=== PATIENT | female | born 1930 | race Caucasian/White ===

== ENCOUNTER 2017-06-29 07:28 | Day surgery (SDC) | payer BC, OTHER ==
[2017-06-29] MEDS ORDERED: IRON SUCROSE INJECTION 100 MG in SODIUM CHLORIDE 100 ML IVPB ONE (08:00)
[2017-06-29 16:40] VITALS: TEMP 98.1
[2017-06-29 16:45] VITALS: BP 106/48; PULSE 68
--- NOTE | 2017-06-29 23:14 | HP ---
[facility] - Chief Complaint History of Present Illness: here for IV iron. Seen and examined. Denies complains History Source: Patient - Past Medical History Allergies/Adverse Reactions: Allergies Allergy/AdvReac Type Severity Reaction Status Date / Time No Known Allergies Allergy Verified 12/30/16 15:50 Cardiovascular: Yes: AFIB, Hyperlipdemia Gastrointestinal: Yes: GERD - Current Medications Current Medications: Home Medications Medication Instructions Recorded Simvastatin [Zocor -] 20 mg PO HS 04/26/13 Nebivolol [Bystolic -] 10 mg PO DAILY #0 tab 04/28/13 Ibandronate Sodium [Boniva] 150 mg PO MONTHLY tablet 07/19/13 Gabapentin 300 mg PO TID 07/31/13 Ibandronate Sodium [Boniva 150 mg PO Q30D 07/31/13 (Monthly)] Calcium Citrate/Vitamin D3 2 each PO BID tablet 09/26/13 [Citracal + D Caplet] Prednisone 5 mg PO DAILY #30 01/26/14 Pantoprazole Sodium [Protonix -] 40 mg PO BID 03/06/14 Sertraline HCl [Zoloft -] 75 mg PO HS 03/06/14 Amlodipine Besylate [Norvasc -] 2.5 mg PO ASDIR PRN 10/15/16 Methotrexate [Mexate -] 7 tab PO Q7D 10/15/16 Warfarin Sodium [Coumadin] 1 tab PO Q2D 10/16/16 Acetaminophen [Tylenol .Regular 650 mg PO Q6H PRN #0 tablet 10/20/16 Strength -] Albuterol 0.083% Nebulizer Yaneth 1 amp NEB Q4H PRN #0 amp 10/20/16 [Ventolin 0.083% Nebulizer Soln -] Cyclobenzaprine HCl [Flexeril -] 10 mg PO HS PRN #0 tablet 10/20/16 Guaifenesin [Robitussin -] 10 ml PO Q4H PRN #0 cup 10/20/16 Lidocaine 5% Patch [Lidoderm -] 2 patch TP DAILY patch 10/20/16 Losartan Potassium [Cozaar -] 50 mg PO DAILY tablet 10/20/16 Polyethylene Glycol 3350 [Miralax 17 gm PO BID bottle 10/20/16 119 gm Btl -] Tramadol HCl [Ultram -] 50 mg PO Q8H PRN #0 tablet MDD 3 10/20/16 Warfarin Na [Coumadin -] 2.5 mg PO Q2D #0 tablet 10/20/16 Albuterol Sulfate Inhaler - 1 - 2 inh PO QID #1 inhaler 12/30/16 [Ventolin HFA Inhaler -] Prednisone [Deltasone -] 40 mg PO DAILY #8 tablet 12/30/16 Satellite Physical Exam - Physical Examination Vital Signs: Vital Signs Period Temp Pulse Resp BP Sys/Ying Pulse Ox Last 24 Hr 98.1 F-98.1 F 68-73 16-16 106-121/48-59 General Appearance: Well Nourished, Well Developed, Alert & Oriented x3 Lung: Clear to auscultation Heart: Regular rate & rhythm Satellite Impression/Plan - Impression/Plan Impression: IV venofer today. Next dose on 07/13. pt made aware
== END 2017-06-29 16:00 | disposition home or self-care (01) ==
LOC: JONCNONCHE 07:28
PROVIDERS: ATTEND Internal Medicine Hematology & Oncology
PROC: 3E033GC Introduction of Other Therapeutic Substance into Peripheral Vein, Percutaneous Approach (ICD-10-PCS; principal; 2017-06-29)
DX: D50.9 Iron deficiency anemia, unspecified (principal)
CPT/HCPCS: 96365; J1756

== ENCOUNTER 2017-07-13 07:22 | Day surgery (SDC) | payer BC, OTHER ==
[2017-07-13] MEDS ORDERED: IRON SUCROSE INJECTION 100 MG in SODIUM CHLORIDE 100 ML IVPB ONE (14:00)
[2017-07-13 14:41] VITALS: TEMP 97.9
[2017-07-13 16:51] VITALS: BP 109/53; PULSE 65
== END 2017-07-13 16:30 | disposition home or self-care (01) ==
LOC: JONCCHEMO 07:22 → J7W 14:18 → JONCCHEMO 16:30
PROVIDERS: ATTEND Internal Medicine Hematology & Oncology
PROC: 3E0333Z Introduction of Anti-inflammatory into Peripheral Vein, Percutaneous Approach (ICD-10-PCS; principal; 2017-07-13)
DX: D50.9 Iron deficiency anemia, unspecified (principal)
CPT/HCPCS: 96365; 96417; J1756

== ENCOUNTER 2017-08-09 13:30 | Emergency (ER) | payer BC ==
[2017-08-09 13:40] VITALS: TEMP 98.7; BMI 22.1
[2017-08-09] MEDS ORDERED: KETOROLAC TROMETHAMINE 15 MG/ML VIAL IM ONE (14:01)
[2017-08-09] MEDS ORDERED: diazePAM 2 MG TABLET PO ONE (14:02)
[2017-08-09] MEDS ORDERED: ACETAMINOPHEN 325 MG TABLET (FP) PO ONE (14:03)
[2017-08-09] MEDS ORDERED: KETOROLAC TROMETHAMINE 30 MG/1 ML VIAL ONE (14:08)
[2017-08-09] MEDS ORDERED: ACETAMINOPHEN 325 MG TABLET (FP) ONE (14:08)
[2017-08-09] MEDS ORDERED: diazePAM 2 MG TABLET ONE (14:09)
[2017-08-09 14:42] VITALS: BP 137/77; PULSE 77
--- NOTE | 2017-08-09 14:43 | PDOC ---
History of Present Illness - General Chief Complaint: Back Pain Stated Complaint: "BACK SPASMS" Time Seen by Provider: 08/09/17 13:33 History Source: Patient Exam Limitations: No Limitations - History of Present Illness Initial Comments: 08/09/17 14:40 86 yo F with/o RA GERD afib, prior spinal fusion, here with c/o upper back pain. started 3 days ago. was seen in ENT for procedure, believes she may have strained it in positioning. no new numbness or tingling. no bowel or bladder incontinence. no trauma. no f/c. Past History - Past Medical History Allergies/Adverse Reactions: Allergies Allergy/AdvReac Type Severity Reaction Status Date / Time No Known Allergies Allergy Verified 08/09/17 13:31 Home Medications: Ambulatory Orders Simvastatin [Zocor -] 20 mg PO HS 04/26/13 Nebivolol [Bystolic -] 10 mg PO DAILY #0 tab 04/28/13 Ibandronate Sodium [Boniva] 150 mg PO MONTHLY tablet 07/19/13 Gabapentin 300 mg PO BID 07/31/13 Calcium Citrate/Vitamin D3 [Citracal + D Caplet] 2 each PO BID tablet 09/26/13 Prednisone 5 mg PO DAILY #30 01/26/14 Pantoprazole Sodium [Protonix -] 40 mg PO BID 03/06/14 Sertraline HCl [Zoloft -] 50 mg PO HS 03/06/14 Amlodipine Besylate [Norvasc -] 2.5 mg PO ASDIR PRN 10/15/16 Methotrexate [Mexate -] 7 tab PO Q7D 10/15/16 Warfarin Sodium [Coumadin] 1 tab PO Q2D 10/16/16 Acetaminophen [Tylenol .Regular Strength -] 650 mg PO Q6H PRN #0 tablet Albuterol 0.083% Nebulizer Yaneth [Ventolin 0.083% Nebulizer Soln -] 1 amp NEB Q4H PRN #0 amp 10/20/16 Cyclobenzaprine HCl [Flexeril -] 10 mg PO HS PRN #0 tablet 10/20/16 Guaifenesin [Robitussin -] 10 ml PO Q4H PRN #0 cup 10/20/16 Lidocaine 5% Patch [Lidoderm -] 2 patch TP DAILY patch 10/20/16 Polyethylene Glycol 3350 [Miralax 119 gm Btl -] 17 gm PO BID bottle 10/20/16 Tramadol HCl [Ultram -] 50 mg PO Q8H PRN #0 tablet MDD 3 10/20/16 Warfarin Na [Coumadin -] 2.5 mg PO Q2D #0 tablet 10/20/16 Albuterol Sulfate Inhaler - [Ventolin HFA Inhaler -] 1 - 2 inh PO QID #1 inhaler 12/30/16 Losartan Potassium [Cozaar -] 100 mg PO DAILY 08/09/17 Anemia: Yes Asthma: No Cancer: No Cardiac Disorders: No CVA: No COPD: No CHF: No Dementia: No Diabetes: No GI Disorders: Yes (ULCERATED ESOPHAGUS; IRRITABLE BOWEL SYNDR., HH) Disorders: No HTN: Yes Hypercholesterolemia: Yes Liver Disease: No Seizures: No Thyroid Disease: No Other medical history: RHEUMATOID ARTHRITIS, FIBROMYALGIA, 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 - Surgical History Abdominal Surgery: No Appendectomy: No Cardiac Surgery: No Cholecystectomy: No Lung Surgery: No Neurologic Surgery: Yes (SPINAL FUSION; LAMINECTOMY) Orthopedic Surgery: Yes (LT CARPAL TUNNEL) - Suicide/Smoking/Psychosocial Hx Smoking Status: Yes Smoking History: Former smoker Have you smoked in the past 12 months: No Number of Cigarettes Smoked Daily: 0 If you are a former smoker, when did you quit?: 50 years ago Information on smoking cessation initiated: No Hx Alcohol Use: No Drug/Substance Use Hx: No Substance Use Type: None Hx Substance Use Treatment: No Review of Systems - Review of Systems Constitutional: No: Chills, Diaphoresis HEENTM: No: Eye Pain, Blurred Vision Cardiac (ROS): No: Chest Pain, Edema Musculoskeletal: Yes: Back Pain Integumentary: No: Bruising All Other Systems: Reviewed and Negative *Physical Exam - Vital Signs Last Vital Signs Temp Pulse Resp BP Pulse Ox 98.7 F 82 18 173/99 99 08/09/17 13:30 08/09/17 13:30 08/09/17 13:30 08/09/17 13:30 08/09/17 13:30 - Physical Exam Neck: positive: Trachea midline Respiratory/Chest: positive: Lungs Clear, Normal Breath Sounds Cardiovascular: positive: Regular Rhythm, Regular Rate, S1, S2 Gastrointestinal/Abdominal: positive: Normal Bowel Sounds Neurologic: positive: emr specialist II-XII NML intact, Fully Oriented, Alert, Normal Mood/ Affect, Motor Strength 5/5, Other (sensation intact bilat upper extremeties. strenth 5/5) ED Treatment Course - RADIOLOGY Radiology Studies Ordered: Category Date Time Status SPINE-THORACIC [RAD] Stat Radiology 08/09/17 14:03 Ordered - Medications Given in the ED: ED Medications Discontinued Medications Generic Name Dose Route Start Last Admin Trade Name Kerwin PRN Reason Stop Dose Admin Acetaminophen 650 mg 08/09/17 14:03 08/09/17 14:10 Tylenol - PO 08/09/17 14:04 650 mg ONCE ONE Administration Diazepam 2 mg 08/09/17 14:02 08/09/17 14:10 Valium - PO 08/09/17 14:03 2 mg ONCE ONE Administration Ketorolac Tromethamine 15 mg 08/09/17 14:01 08/09/17 14:15 Toradol Injection - IM 08/09/17 14:02 15 mg ONCE ONE Administration Medical Decision Making - Medical Decision Making 08/09/17 14:44 pt with lateral back spasm left lateral thoracid region. no midline spinal tenderenss. nuerologically intact bilat upper ext. ambulating with cane at baseline. plan xray pain meds. pt not wanting to wait for xray, will follow up with kiki next. week. *DC/Admit/Observation/Transfer Diagnosis at time of Disposition: Upper back strain - Discharge Dispostion Disposition: HOME Condition at time of disposition: Improved Admit: No - Referrals Referrals: Guillaume Hernandez MD [Primary Care Provider] - - Patient Instructions Printed Discharge Instructions: Back Pain (Alternative Therapy) Additional Instructions: you can take ibuprofn 400 mg every 8 hours as needed for pain. you can also take tylenol 500 mg every 6 hours as needed for pain. return for weakness numbness or any concerns. follow up with dr hernandez next week as scheduled
== END 2017-08-09 14:55 | disposition home or self-care (01) ==
LOC: FER 13:30
PROC: 3E0233Z Introduction of Anti-inflammatory into Muscle, Percutaneous Approach (ICD-10-PCS; principal; 2017-08-09)
DX: S29.012A Strain of muscle and tendon of back wall of thorax, initial encounter (principal); X58.XXXA Exposure to other specified factors, initial encounter; Y93.89 Activity, other specified; Y92.9 Unspecified place or not applicable; I48.91 Unspecified atrial fibrillation; K21.9 Gastro-esophageal reflux disease without esophagitis; I10 Essential (primary) hypertension
CPT/HCPCS: 99282-25

== ENCOUNTER 2017-08-10 21:27 | Inpatient (IN) | payer BC, OTHER ==
--- NOTE | 2017-08-10 21:31 | PDOC ---
History of Present Illness - General History Source: Patient, EMS, Old Records Exam Limitations: No Limitations <Kevin Ramírez - Last Filed: 08/10/17 23:03> <GuillaumeEve Karina - Last Filed: 08/11/17 03:01> - General Stated Complaint: SYNCOPE Time Seen by Provider: 08/10/17 21:30 - History of Present Illness Initial Comments: 08/10/17 23:00 The patient is a 86 year old female brought via EMS, with a significant past medical history of chronic anemia (Iron Infusions twice a month), ulcerate esophagous, IBS, HTN and HLD, who presents to the emergency department after a syncopal episode today. EMS notes that the patient was on a camode urinating when she syncopized and fell forward. She remained unresponsive for 2 minutes before becoming alert and oriented x4. She currently complains of back spasms which range from mild to moderate. It is noted that the patient was in the ED yesterday for back spasms as well, for which she was discharged after improvement of symptoms. This counts as day 4 of her back spasms. She also complaints of frequency associated with her chief complaint. The patient denies chest pain, shortness of breath, headache and dizziness. Denies fever, chills, nausea, vomit, diarrhea and constipation. Denies dysuria, urgency and hematuria. Allergies: None Past surgical history: Spinal fusion, laminectomy, left carpal tunnel Social history: Former smoker. No alcohol or drug use reported (Kevin Ramírez) Past History <Kevin Ramírez - Last Filed: 08/10/17 23:03> - Past Medical History Anemia: Yes Asthma: No Cancer: No Cardiac Disorders: No CVA: No COPD: No CHF: No Dementia: No Diabetes: No GI Disorders: Yes (ULCERATED ESOPHAGUS; IRRITABLE BOWEL SYNDR., HH) Disorders: No HTN: Yes Hypercholesterolemia: Yes Liver Disease: No Seizures: No Thyroid Disease: No - Surgical History Abdominal Surgery: No Appendectomy: No Cardiac Surgery: No Cholecystectomy: No Lung Surgery: No Neurologic Surgery: Yes (SPINAL FUSION; LAMINECTOMY) Orthopedic Surgery: Yes (LT CARPAL TUNNEL) - Suicide/Smoking/Psychosocial Hx Smoking Status: Yes Smoking History: Former smoker Have you smoked in the past 12 months: No Number of Cigarettes Smoked Daily: 0 If you are a former smoker, when did you quit?: 50 years ago Hx Alcohol Use: No Drug/Substance Use Hx: No Substance Use Type: None Hx Substance Use Treatment: No <GuillauemEveragini Collins - Last Filed: 08/11/17 03:01> - Past Medical History Allergies/Adverse Reactions: Allergies Allergy/AdvReac Type Severity Reaction Status Date / Time No Known Allergies Allergy Verified 08/10/17 21:58 Home Medications: Ambulatory Orders Simvastatin [Zocor -] 20 mg PO HS 04/26/13 Nebivolol [Bystolic -] 10 mg PO DAILY #0 tab 04/28/13 Ibandronate Sodium [Boniva] 150 mg PO MONTHLY tablet 07/19/13 Gabapentin 300 mg PO BID 07/31/13 Calcium Citrate/Vitamin D3 [Citracal + D Caplet] 2 each PO BID tablet 09/26/13 Prednisone 5 mg PO DAILY #30 01/26/14 Pantoprazole Sodium [Protonix -] 40 mg PO BID 03/06/14 Sertraline HCl [Zoloft -] 50 mg PO HS 03/06/14 Amlodipine Besylate [Norvasc -] 2.5 mg PO ASDIR PRN 10/15/16 Methotrexate [Mexate -] 7 tab PO Q7D 10/15/16 Warfarin Sodium [Coumadin] 1 tab PO Q2D 10/16/16 Acetaminophen [Tylenol .Regular Strength -] 650 mg PO Q6H PRN #0 tablet Albuterol 0.083% Nebulizer Yaneth [Ventolin 0.083% Nebulizer Soln -] 1 amp NEB Q4H PRN #0 amp 10/20/16 Cyclobenzaprine HCl [Flexeril -] 10 mg PO HS PRN #0 tablet 10/20/16 Guaifenesin [Robitussin -] 10 ml PO Q4H PRN #0 cup 10/20/16 Lidocaine 5% Patch [Lidoderm -] 2 patch TP DAILY patch 10/20/16 Polyethylene Glycol 3350 [Miralax 119 gm Btl -] 17 gm PO BID bottle 10/20/16 Tramadol HCl [Ultram -] 50 mg PO Q8H PRN #0 tablet MDD 3 10/20/16 Warfarin Na [Coumadin -] 2.5 mg PO Q2D #0 tablet 10/20/16 Albuterol Sulfate Inhaler - [Ventolin HFA Inhaler -] 1 - 2 inh PO QID #1 inhaler 12/30/16 Losartan Potassium [Cozaar -] 100 mg PO DAILY 08/09/17 Cardiac Specific PMH - Complaint Specific PMHX Pacemaker: No <Eve Galaviz - Last Filed: 08/11/17 03:01> Review of Systems - Review of Systems Able to Perform ROS?: Yes <Kevin Ramírez - Last Filed: 08/10/17 23:03> <Eve Galaviz - Last Filed: 08/11/17 03:01> - Review of Systems Comments:: 08/10/17 23:00 GENERAL/CONSTITUTIONAL: No fever or chills. No weakness. HEAD, EYES, EARS, NOSE AND THROAT: No change in vision. No ear pain or discharge. No sore throat.- CARDIOVASCULAR: No chest pain or shortness of breath RESPIRATORY: No cough, wheezing, or hemoptysis. GASTROINTESTINAL: No nausea, vomiting, diarrhea or constipation. GENITOURINARY: (+) Frequency. No dysuria, or change in urination. MUSCULOSKELETAL: (+) Back spasms. No joint or muscle swelling or pain. No neck or back pain. SKIN: No rash NEUROLOGIC: (+) Syncope. No headache, vertigo, change in strength/sensation. ENDOCRINE: No increased thirst. No abnormal weight change HEMATOLOGIC/LYMPHATIC: No anemia, easy bleeding, or history of blood clots. ALLERGIC/IMMUNOLOGIC: No hives or skin allergy. (Kevin Ramírez) *Physical Exam <Kevin Ramírez - Last Filed: 08/10/17 23:03> <Eve Galaviz - Last Filed: 08/11/17 03:01> - Vital Signs Last Vital Signs Temp Pulse Resp BP Pulse Ox 90 14 167/92 98 08/10/17 21:59 08/10/17 21:59 08/10/17 21:59 08/10/17 21:59 - Physical Exam Comments: 08/10/17 23:00 GENERAL: Awake, alert, and fully oriented, in no acute distress HEAD: No signs of trauma, normocephalic, atraumatic EYES: PERRLA, EOMI, sclera anicteric, conjunctiva clear ENT: Auricles normal inspection, hearing grossly normal, nares patent, oropharynx clear without exudates. Moist mucosa NECK: Normal ROM, supple, no lymphadenopathy, JVD, or masses LUNGS: No distress, speaks full sentences, clear to auscultation bilaterally HEART: Regular rate and rhythm, normal S1 and S2, no murmurs, rubs or gallops, peripheral pulses normal and equal bilaterally. ABDOMEN: Soft, nontender, normoactive bowel sounds. No guarding, no rebound. No masses EXTREMITIES : Normal inspection, Normal range of motion, no edema. No clubbing or cyanosis. NEUROLOGICAL: Cranial nerves II through XII grossly intact. Normal speech, normal gait, no focal sensorimotor deficits SKIN: Warm, Dry, normal turgor, no rashes or lesions noted. RECTAL EXAM: Normal tone, no blood was appreciated (Kevin Ramírez) Heart Score/ECG Review - History History: Moderately suspicious - Electrocardiogram EKG: Non specific repolarization disturbance - Age Age: >/= 65 - Risk Factors Risk Factors Heart Score: Yes Hx Hypertension Based on the list above the patient has:: 1-2 risk factors - Troponin Troponin: </= normal limit - Score Heart Score - Total: 5 - ECG Intrepretation Rhythm: Regular Rhythm - [place]: Normal <Eve Galaviz - Last Filed: 08/11/17 03:01> ED Treatment Course - LABORATORY CBC & Chemistry Diagram: 08/10/17 23:27 08/10/17 23:27 <Eve Galaviz - Last Filed: 08/11/17 03:01> - ADDITIONAL ORDERS Additional order review: Laboratory Results 08/11/17 08/10/17 08/10/17 01:51 23:39 23:27 PT with INR INR Sodium Potassium Chloride Carbon Dioxide Anion Gap BUN Creatinine Creat Clearance w eGFR Random Glucose Calcium Magnesium Total Bilirubin AST ALT Alkaline Phosphatase Creatine Kinase 258 H Creatine Kinase Index CK-MB (CK-2) Troponin I < 0.02 B-Natriuretic Peptide Total Protein Albumin Urine Color Straw Urine Appearance Slcloudy Urine pH 8.0 D Urine Protein Negative Urine Glucose (UA) 1+ H Urine Ketones Trace H Urine Blood 1+ H Urine Nitrite Negative Urine Bilirubin Negative Urine Urobilinogen Negative Urine RBC 16 Urine WBC 2 Ur Epithelial Cells Rare Urine Bacteria Rare Urine Mucus Rare Stool Occult Blood Negative Blood Type Antibody Screen 08/10/17 08/10/17 08/10/17 23:27 23:27 23:27 PT with INR 39.10 H INR 3.46 H Sodium 126 L Potassium 4.2 Chloride 88 L D Carbon Dioxide 27 Anion Gap 11 BUN 14 D Creatinine 0.5 L D Creat Clearance w eGFR > 60 Random Glucose 116 H D Calcium 8.5 Magnesium 2.0 Total Bilirubin 0.6 D AST 25 D ALT 31 D Alkaline Phosphatase 84 Creatine Kinase 199 H Creatine Kinase Index 3.6 CK-MB (CK-2) 7.169 H Troponin I < 0.02 B-Natriuretic Peptide 1726.75 H Total Protein 6.6 Albumin 3.8 Urine Color Urine Appearance Urine pH Urine Protein Urine Glucose (UA) Urine Ketones Urine Blood Urine Nitrite Urine Bilirubin Urine Urobilinogen Urine RBC Urine WBC Ur Epithelial Cells Urine Bacteria Urine Mucus Stool Occult Blood Blood Type Antibody Screen 08/10/17 23:20 PT with INR INR Sodium Potassium Chloride Carbon Dioxide Anion Gap BUN Creatinine Creat Clearance w eGFR Random Glucose Calcium Magnesium Total Bilirubin AST ALT Alkaline Phosphatase Creatine Kinase Creatine Kinase Index CK-MB (CK-2) Troponin I B-Natriuretic Peptide Total Protein Albumin Urine Color Urine Appearance Urine pH Urine Protein Urine Glucose (UA) Urine Ketones Urine Blood Urine Nitrite Urine Bilirubin Urine Urobilinogen Urine RBC Urine WBC Ur Epithelial Cells Urine Bacteria Urine Mucus Stool Occult Blood Blood Type A POSITIVE Antibody Screen Negative 08/10/17 23:27 RBC 4.59 MCV 83.7 MCHC 32.1 RDW 24.0 H D MPV 7.5 Neutrophils % 82.8 Lymphocytes % 7.9 L D Monocytes % 8.6 Eosinophils % 0.2 D Basophils % 0.5 - RADIOLOGY Radiology Studies Ordered: Category Date Time Status CHEST CTA [CT] Stat CT Scan 08/11/17 01:[address] WITHOUT CONTRAST [CT] Stat CT Scan 08/11/17 00:10 Taken CHEST X-RAY PORTABLE* [RAD] Stat Radiology 08/10/17 22:23 Taken - Medications Given in the ED: ED Medications Discontinued Medications Generic Name Dose Route Start Last Admin Trade Name Freq PRN Reason Stop Dose Admin Aspirin 162 mg 08/10/17 22:22 08/10/17 23:57 Asa - PO 08/10/17 22:23 Not Given ONCE ONE Morphine Sulfate 2 mg 08/11/17 00:32 08/11/17 00:40 Morphine Injection - IVPUSH 08/11/17 00:33 2 mg ONCE ONE Administration Ondansetron HCl 4 mg 08/11/17 01:20 08/11/17 01:36 Zofran Injection IVPUSH 08/11/17 01:21 4 mg ONCE ONE Administration Progress Note <Kevin Ramírez - Last Filed: 08/10/17 23:03> <Eve Galaviz - Last Filed: 08/11/17 03:01> - Progress Note Progress Note: While in the ED, the patient had an episode of coffee ground vomit and a rectal exam was performed. (Kevin Ramírez) Medical Decision Making <Kevin Ramírez - Last Filed: 08/10/17 23:03> <Eve Galaviz - Last Filed: 08/11/17 03:01> - Medical Decision Making 08/10/17 21:32 86-year-old female brought in by ambulance after having a syncopal episode while on the commode. She was on the commode urinating and fell as she moved from the commode into her bed. She denies hitting her head. According to EMS the son said she was unresponsive for up to 2 minutes. Upon awakening, she was alert and oriented 3. -pt has been vomiting and has dry mucus membranes -she reports having a colonoscopy and endoscopy by Dr. Karina Watkins on July 30. the patient states the results are unremarkable She reports back spasms since Wednesday. She states the back pain has been in her left scapular area She has a long-standing history of back pain and multiple back surgeries. 08/11/17 01:23 She is a past medical history significant for severe anemia and gets frequent iron infusions. She has IBS. Esophageal ulcers. Spinal fusion. Atrial fibrillation and is on Coumadin with an INR above 3 this evening sHe denies fever or chills or abdominal pain or chest pain. EKG shows significant increases in voltage in V2 V3 when compared to her prior ekg in Sep 2016 She denies any chest pain and her first troponin was negative. -Case was discussed with Dr. Bahman Davis who saw [facility] ekgs which were sent to his phone and he recommended early second troponin TSH and telemetry admission 08/11/17 01:37 08/11/17 01:50 08/11/17 02:20 08/11/17 03:00 (Eve Galaviz) *DC/Admit/Observation/Transfer <Kevin Ramírez - Last Filed: 08/10/17 23:03> - Discharge Dispostion Admit: Yes <Eve Galaviz - Last Filed: 08/11/17 03:01> Diagnosis at time of Disposition: Syncope and collapse, Dehydration, Elevated INR, Hyponatremia Afib Qualifiers: Atrial fibrillation type: chronic Qualified Code(s): I48.2 - Chronic atrial fibrillation Nausea & vomiting Qualifiers: Vomiting type: unspecified Vomiting Intractability: non-intractable Qualified Code(s): R11.2 - Nausea with vomiting, unspecified - Discharge Dispostion Decision to Admit order Date/Time: Decision to Admit Order Category Date Time Status Decision to Admit to Hospital Routine Admission 08/11/17 02:43 Active - Attestations Scribe Attestion: 08/10/17 23:01 Documentation prepared by Kevin Ramírez, acting as medical records auditor for Eve Galaviz MD (Kevin Ramírez)
[2017-08-10 22:03] VITALS: BMI 22.1
[2017-08-10] MEDS ORDERED: ASPIRIN 81 MG CHEWABLE TABLETS PO ONE (22:22)
[2017-08-10 23:36] LABS: BASOPHIL 0.5 % (0-2.0); EOSINOPHIL 0.2 % (0-4.5); MCH 26.9 pg (25.7-33.7); MCHC 32.1 g/dl (32.0-36.0); MEAN CELL VOLUME 83.7 fl (80-96); MEAN PLT VOLUME 7.5 fl (7.5-11.1); NEUTROPHILS 82.8 % (42.8-82.8); PLATELET COUNT 273 K/MM3 (134-434); WHITE BLOOD COUNT 12.2 K/mm3 (4.0-10.0)
[2017-08-10 23:56] LABS: URINE APPEARANCE SLCLOUDY; URINE BILIRUBIN NEGATIVE (NEGATIVE); URINE BLOOD 1+ (NEGATIVE); URINE COLOR STRAW; URINE GLUCOSE (UA) 1+ (NEGATIVE); URINE KETONE TRACE (NEGATIVE); URINE NITRITE NEGATIVE (NEGATIVE); URINE PROTEIN NEGATIVE (NEGATIVE); URINE UROBILINOGEN NEGATIVE mg/dL (0.2-1.0)
[2017-08-11 00:07] LABS: URINE BACTERIA RARE /hpf (NONE SEEN); URINE MUCUS RARE; URINE RBC 16 /hpf (0-3); URINE WBC 2 /hpf (3-5)
[2017-08-11 00:13] LABS: ALBUMIN 3.8 g/dl (3.4-5.0); ANION GAP 11 (8-16); BILIRUBIN,TOTAL 0.6 mg/dL (0.2-1.0); CALCIUM 8.5 mg/dL (8.5-10.1); CO2 27 mmol/L (21-32); CREATININE 0.5 mg/dL (0.55-1.02); GLUCOSE,RANDOM 116 mg/dL (74-106); SGOT/AST 25 U/L (15-37); SGPT/ALT 31 U/L (12-78); TOT PROT 6.6 g/dl (6.4-8.2)
[2017-08-11 00:15] LABS: ALK PHOS 84 U/L (45-117); CPK 199 IU/L (26-192); TROPONIN I < 0.02 ng/ml (0.00-0.05)
[2017-08-11 00:20] LABS: INR 3.46 (0.82-1.09); PROTHROMBIN TIME (PATIENT) 39.1 SEC (9.98-11.88)
[2017-08-11] MEDS ORDERED: morphine CARPU-JECT 2 MG/1 ML DISP.SYRIN IVPUSH ONE (00:32)
[2017-08-11] MEDS ORDERED: morphine CARPU-JECT 10 MG/1 ML DISP.SYRIN ONE (00:34)
[2017-08-11] MEDS ORDERED: ONDANSETRON 4 MG/2 ML VIAL IVPUSH ONE (01:20)
[2017-08-11] MEDS ORDERED: ONDANSETRON 4 MG/2 ML VIAL ONE (01:31)
[2017-08-11 02:26] LABS: CPK 258 IU/L (26-192); TROPONIN I < 0.02 ng/ml (0.00-0.05)
--- NOTE | 2017-08-11 03:22 | HP ---
CHIEF COMPLAINT: Syncope, Back Spasms Vomiting PCP: Dr. Hernandez HISTORY OF PRESENT ILLNESS: This is a 86 y/o woman with a significant past medical history of Chronic Anemia with Iron Transfusions, Esophageal Ulcer, Chronic Afib ( in Coumadin), Chronic Neck and Back Pain. Who presents to the ED by ambulance for Syncope. Patient reports having 2 episodes at home. The first while she was sitting in her bedroom she felt dizzy while standing having to sit down then it subsided. The second occurred while patient was using her bedside commode to void, per EMS record the patient syncopized and fell forward lasting 2 minutes. The patient reports having severe back spasms since last Wednesday, being treated at the [place] [facility] campus and discharged to home. Patient also reports urinary frequency x 1 day. Patient denies fever, chills, cough, CP, AP, diarrhea, dysuria. ER course was notable for: (1) Na 126 (2) EKG- #1 NSR with anteroseptal infarct, possible acute. #2 NSR Septal Infarct , age undetermined (3) INR 3.46 Recent Travel: None PAST MEDICAL HISTORY: Chronic Anemia (Iron Infusions) Esophageal Ulcer HTN HLD Afib (on Coumadin) DVT (groin) PAST SURGICAL HISTORY: s/p Cervical Fusion s/p Lumbar Fusion s/p Laminectomy Bilateral Cataract removal Sinus Social History: Smoking: Former Alcohol: None Drugs: None Lives with vania Family History: Allergies No Known Allergies Allergy (Verified 08/10/17 21:58) HOME MEDICATIONS: Home Medications Medication Instructions Recorded Simvastatin [Zocor -] 20 mg PO HS 04/26/13 Nebivolol [Bystolic -] 10 mg PO DAILY #0 tab 04/28/13 Ibandronate Sodium [Boniva] 150 mg PO MONTHLY tablet 07/19/13 Gabapentin 300 mg PO BID 07/31/13 Calcium Citrate/Vitamin D3 2 each PO BID tablet 09/26/13 [Citracal + D Caplet] Prednisone 5 mg PO DAILY #30 01/26/14 Pantoprazole Sodium [Protonix -] 40 mg PO BID 03/06/14 Sertraline HCl [Zoloft -] 50 mg PO HS 03/06/14 Amlodipine Besylate [Norvasc -] 2.5 mg PO ASDIR PRN 10/15/16 Methotrexate [Mexate -] 7 tab PO Q7D 10/15/16 Warfarin Sodium [Coumadin] 1 tab PO Q2D 10/16/16 Acetaminophen [Tylenol .Regular 650 mg PO Q6H PRN #0 tablet 10/20/16 Strength -] Albuterol 0.083% Nebulizer Yaneth 1 amp NEB Q4H PRN #0 amp 10/20/16 [Ventolin 0.083% Nebulizer Soln -] Cyclobenzaprine HCl [Flexeril -] 10 mg PO HS PRN #0 tablet 10/20/16 Guaifenesin [Robitussin -] 10 ml PO Q4H PRN #0 cup 10/20/16 Lidocaine 5% Patch [Lidoderm -] 2 patch TP DAILY patch 10/20/16 Polyethylene Glycol 3350 [Miralax 17 gm PO BID bottle 10/20/16 119 gm Btl -] Tramadol HCl [Ultram -] 50 mg PO Q8H PRN #0 tablet MDD 3 10/20/16 Warfarin Na [Coumadin -] 2.5 mg PO Q2D #0 tablet 10/20/16 Albuterol Sulfate Inhaler - 1 - 2 inh PO QID #1 inhaler 12/30/16 [Ventolin HFA Inhaler -] Losartan Potassium [Cozaar -] 100 mg PO DAILY 08/09/17 REVIEW OF SYSTEMS CONSTITUTIONAL: Absent: fever, chills, diaphoresis, generalized weakness, malaise, loss of appetite, weight change HEENT: Absent: rhinorrhea, nasal congestion, throat pain, throat swelling, difficulty swallowing, mouth swelling, ear pain, eye pain, visual changes CARDIOVASCULAR: Absent: chest pain, syncope, palpitations, irregular heart rate, lightheadedness , peripheral edema RESPIRATORY: Absent: cough, shortness of breath, dyspnea with exertion, orthopnea, wheezing, stridor, hemoptysis GASTROINTESTINAL: nausea, vomiting, Absent: abdominal pain, abdominal distension, diarrhea, constipation, melena, hematochezia GENITOURINARY: frequency Absent: dysuria, urgency, hesitancy, hematuria, flank pain, genital pain MUSCULOSKELETAL: back pain Absent: myalgia, arthralgia, joint swelling, neck pain SKIN: Absent: rash, itching, pallor HEMATOLOGIC/IMMUNOLOGIC: Absent: easy bleeding, easy bruising, lymphadenopathy, frequent infections ENDOCRINE: Absent: unexplained weight gain, unexplained weight loss, heat intolerance, cold intolerance NEUROLOGIC: Absent: headache, focal weakness or paresthesias, dizziness, unsteady gait, seizure, mental status changes, bladder or bowel incontinence PSYCHIATRIC: Absent: anxiety, depression, suicidal or homicidal ideation, hallucinations. PHYSICAL EXAMINATION Vital Signs - 24 hr 08/10/17 21:59 Pulse Rate 90 Respiratory 14 Rate Blood Pressure 167/92 O2 Sat by Pulse 98 Oximetry (%) GENERAL: Awake, alert, and fully oriented, in no acute distress. HEAD: Normal with no signs of trauma. EYES: Pupils equal, round and reactive to light, extraocular movements intact, sclera anicteric, conjunctiva clear. No lid lag. EARS, NOSE, THROAT: Ears normal, nares patent, oropharynx clear without exudates. Dry mucous membranes. NECK: Limited range of motion, supple without lymphadenopathy, JVD, or masses. LUNGS: Breath sounds equal, clear to auscultation bilaterally. No wheezes, and no crackles. No accessory muscle use. HEART: Regular rate and rhythm, normal S1 and S2, No rub or gallop. Grade 3 systolic murmur ABDOMEN: Soft, nontender, not distended, no guarding, no rebound, No hepatomegaly or splenomegaly. hypoactive bowel sounds, palpable soft mass above mid umbilical region MUSCULOSKELETAL: Normal range of motion at all joints. No bony deformities or tenderness. No CVA tenderness. UPPER EXTREMITIES: 2+ pulses, warm, well-perfused. No cyanosis. No clubbing. No peripheral edema. LOWER EXTREMITIES: 2+ pulses, warm, well-perfused. No calf tenderness. No peripheral edema. NEUROLOGICAL: Cranial nerves II-XII intact. Normal speech. Gait not observed. PSYCHIATRIC: Cooperative. Good eye contact. Appropriate mood and affect. SKIN: Warm, dry, normal turgor, no rashes or lesions noted, normal capillary refill. Laboratory Results - last 24 hr 08/10/17 08/10/17 08/10/17 23:20 23:27 23:27 WBC 12.2 H D RBC 4.59 Hgb 12.3 Hct 38.4 MCV 83.7 MCH 26.9 MCHC 32.1 RDW 24.0 H D Plt Count 273 MPV 7.5 Neutrophils % 82.8 Lymphocytes % 7.9 L D Monocytes % 8.6 Eosinophils % 0.2 D Basophils % 0.5 PT with INR 39.10 H INR 3.46 H Sodium Potassium Chloride Carbon Dioxide Anion Gap BUN Creatinine Creat Clearance w eGFR Random Glucose Calcium Magnesium Total Bilirubin AST ALT Alkaline Phosphatase Creatine Kinase Creatine Kinase Index CK-MB (CK-2) Troponin I B-Natriuretic Peptide Total Protein Albumin Urine Color Urine Appearance Urine pH Urine Protein Urine Glucose (UA) Urine Ketones Urine Blood Urine Nitrite Urine Bilirubin Urine Urobilinogen Urine RBC Urine WBC Ur Epithelial Cells Urine Bacteria Urine Mucus Stool Occult Blood Blood Type A POSITIVE Antibody Screen Negative 08/10/17 08/10/17 08/10/17 23:27 23:27 23:27 WBC RBC Hgb Hct MCV MCH MCHC RDW Plt Count MPV Neutrophils % Lymphocytes % Monocytes % Eosinophils % Basophils % PT with INR INR Sodium 126 L Potassium 4.2 Chloride 88 L D Carbon Dioxide 27 Anion Gap 11 BUN 14 D Creatinine 0.5 L D Creat Clearance w eGFR > 60 Random Glucose 116 H D Calcium 8.5 Magnesium 2.0 Total Bilirubin 0.6 D AST 25 D ALT 31 D Alkaline Phosphatase 84 Creatine Kinase 199 H Creatine Kinase Index 3.6 CK-MB (CK-2) 7.169 H Troponin I < 0.02 B-Natriuretic Peptide 1726.75 H Total Protein 6.6 Albumin 3.8 Urine Color Urine Appearance Urine pH Urine Protein Urine Glucose (UA) Urine Ketones Urine Blood Urine Nitrite Urine Bilirubin Urine Urobilinogen Urine RBC Urine WBC Ur Epithelial Cells Urine Bacteria Urine Mucus Stool Occult Blood Negative Blood Type Antibody Screen 08/10/17 08/11/17 23:39 01:51 WBC RBC Hgb Hct MCV MCH MCHC RDW Plt Count MPV Neutrophils % Lymphocytes % Monocytes % Eosinophils % Basophils % PT with INR INR Sodium Potassium Chloride Carbon Dioxide Anion Gap BUN Creatinine Creat Clearance w eGFR Random Glucose Calcium Magnesium Total Bilirubin AST ALT Alkaline Phosphatase Creatine Kinase 258 H Creatine Kinase Index 2.9 CK-MB (CK-2) 7.548 H Troponin I < 0.02 B-Natriuretic Peptide Total Protein Albumin Urine Color Straw Urine Appearance Slcloudy Urine pH 8.0 D Urine Protein Negative Urine Glucose (UA) 1+ H Urine Ketones Trace H Urine Blood 1+ H Urine Nitrite Negative Urine Bilirubin Negative Urine Urobilinogen Negative Urine RBC 16 Urine WBC 2 Ur Epithelial Cells Rare Urine Bacteria Rare Urine Mucus Rare Stool Occult Blood Blood Type Antibody Screen ASSESSMENT/PLAN: This is a 86 y/o woman with a PMHx of: Chronic Anemia (Iron Infusions, LD 06/2017 ), Esophageal Ulcers, HTN, HLD, Chronic Neck and Back Pain. Admitted to Telemetry for Syncope, Hyponatremia, Vomiting for further evaluation of their emergent condition. Plan: 1. Syncope - Likely secondary to Electrolyte Imbalance vs Stenosis vs Anemia - Patient reports having a pre-syncopal episode, then a syncopal episode lasting 2 minutes - Tele monitoring - Head CT- no acute ICH, mass or lesion - EKG- NSR, Anteroseptal Infarct, possibly acute-changes compared to prior study 09/2016 ST abnormality in pericordal leads. Dr. Davis is aware per ED attending - Serial Enzymes - Appreciate Cardiology Consult - Echo - Carotid Doppler - BMP Q4H secondary to Hyponatremia - Fall Precautions - Monitor CBC 2. Hyponatremia - NS bolus now - BMP Q4H 3. Vomiting - Patient reports having an EGD/Colonoscopy 07/30/17 at [facility], she states both were normal - Patient has had 2-3 episodes of black watery emesis in the ED and on the m/s floor - Appreciate GI Consult - NPO - PPI - CTA abdomen report- Minimal bilateral pleural effusions. Subacute right 9th, 10th, rib fractures. Large Hiatal Hernia. Prominent left hepatic lobe biliary duct dilatation could be secondary to biliary stricture or mass. f/u with MRI/ MRCP should be considered 4. Esophageal Ulcer - See above 5. Supratherapeutic INR - Hiold Coumadin - Daily INRs 6. Afib - CHADsVASc2 Score 6 - Hold Coumadin secondary to supratherapuetic INR - Daily INRs - EKG reviewed 7. Chronic Neck/Back Pain - Chronic vs Aortic Dissection vs PE - s/p laminectomy - s/p lumbar fusion - s/p cervcal fusion - s/p cortisone injection - Patient reports being treated at [facility] for Back Spasms- Valium, little relief - CTA chest report- There is no aortic aneurysm or dissection. No gross evidence of PE. Multiple old rib fxs and old T11 compression fx without retropulsion. - Morphine given in ED - Will try Ofirmev x1 - Morphine Sulfate prn - Consider Pain Mgmt - Incentive Spirometer 8. Chronic Anemia - Stable - Patient receives Iron Infusions - Will repeat CBC in am - Will transfuse if Hgb < 7.0 9. Hypertension - Stable - Will hold PO meds in light of patient vomiting - Monitor BP, will have Day Team reassess in am, and treat accordingly - Monitor renal function 10. HLD - Lipid panel in am - Hold Lipitor for now 2/2 episodes of emesis 11. FEN - NS bolus now - Replete Na - NPO 12. DVT Prophylaxis - OOB - SCDs - Hold ACs for now, concern for Upper GI Bleed Code Status: Full Code, HCP Dispo: Requires Inpatient Care Visit type - Emergency Visit Emergency Visit: Yes ED Registration Date: 08/10/17 Care time: The patient presented to the Emergency Department on the above date and was hospitalized for further evaluation of their emergent condition. - New Patient This patient is new to me today: Yes Date on this admission: 08/11/17 - Critical Care Critical Care patient: No
[2017-08-11 04:13] LABS: ANION GAP 13 (8-16); CALCIUM 8.5 mg/dL (8.5-10.1); CO2 23 mmol/L (21-32); CREATININE 0.5 mg/dL (0.55-1.02); GLUCOSE,RANDOM 110 mg/dL (74-106)
[2017-08-11 04:21] LABS: THYROID STIMULATING HORMONE 0.86 uIU/ml (0.358-3.74)
[2017-08-11] MEDS ORDERED: ACETAMINOPHEN 1000 MG/100 ML VIAL (NON FORMULARY) IVPB ONE ×2 (05:07→09:45)
[2017-08-11] MEDS ORDERED: PANTOPRAZOLE SODIUM 40 MG in SODIUM CHLORIDE 100 ML IVPB ONE (05:33)
[2017-08-11] MEDS ORDERED: ALBUTEROL SO4 0.083% IH SOL 2.5 MG/3 ML VIAL.NEB. NEB PRN (05:35)
[2017-08-11 08:33] LABS: BASOPHIL 0.3 % (0-2.0); EOSINOPHIL 0.1 % (0-4.5); MCH 26.7 pg (25.7-33.7); MEAN CELL VOLUME 83.5 fl (80-96); MEAN PLT VOLUME 7.5 fl (7.5-11.1); NEUTROPHILS 84.2 % (42.8-82.8); PLATELET COUNT 278 K/MM3 (134-434); RDW 24.4 % (11.6-15.6); WHITE BLOOD COUNT 10.8 K/mm3 (4.0-10.0)
[2017-08-11 09:00] LABS: INR 2.52 (0.82-1.09); PROTHROMBIN TIME (PATIENT) 28.5 SEC (9.98-11.88)
[2017-08-11 09:04] LABS: ANION GAP 8 (8-16); CALCIUM 8.6 mg/dL (8.5-10.1); CHOLESTEROL 204 mg/dL (50-200); CO2 30 mmol/L (21-32); CPK 306 IU/L (26-192); CREATININE 0.5 mg/dL (0.55-1.02); GLUCOSE,RANDOM 81 mg/dL (74-106); PHOSPHOROUS 3.1 mg/dL (2.5-4.9)
[2017-08-11 09:05] LABS: TROPONIN I < 0.02 ng/ml (0.00-0.05)
[2017-08-11] MEDS ORDERED: ACETAMINOPHEN 1000 MG/100 ML VIAL (NON FORMULARY) IVPB PRN (09:05)
--- NOTE | 2017-08-11 09:17 | PN ---
Progress Note (short form) - Note Progress Note: Patient had 2 spells of weakness while on commode yesterday and had a syncopal episode the second time and slid to the floor and was found by her son.Since Wednesday she has had severe back pain localized to the left of the thoracic spine radiating to a point above the left scapula. The area is tender to touch and hurts more on movement. Went to [facility] ER Wed and sent home on pain Rx. Yesterday she felt weak and some nausea was noted and one episode of vomiting dark material. Just completed EGD and Colonoscopy. Long Hx of Hypertension, DVT , Paroxysmal A. Fib, Osteoporosis and LDS Disc operations and chronic pain. ? of EKG changes in ER; Troponin so far WNL. On Exam: Vital Signs Temp 97.9 F 08/11/17 05:01 Pulse 91 H 08/11/17 05:01 Resp 18 08/11/17 05:31 BP 157/83 08/11/17 05:01 Pulse Ox 96 08/11/17 05:31 Intake & Output 08/10/17 08/10/17 08/11/17 11:59 23:59 11:59 Intake Total 145 Output Total 50 Balance 95 Weight 125 lb 125 lb Intake: IV 10 rfa 20 08/11/2017 10 IVPB 135 Output: Emesis 50 Other: Voiding Method Bedpan Bowel Movement No Height 5 ft 3 in 5 ft 3 in Body Mass Index (BMI) 22.1 22.1 Weight Measurement Method Patient Lift Scale Weight Measurement Method Standing Scale Alert Slightly pale Tenderness posterior chest wall lateral to T2-T4 on the left side Cor: Reg ExT: no edema Abd: Soft and nontender Vital Signs Temp 97.9 F 08/11/17 05:01 Pulse 91 H 08/11/17 05:01 Resp 18 08/11/17 05:31 BP 157/83 08/11/17 05:01 Pulse Ox 96 08/11/17 05:31 Intake & Output Abnormal Lab Results 08/10/17 08/10/17 08/10/17 23:27 23:27 23:27 WBC 12.2 H D RDW 24.0 H D Neutrophils % Lymphocytes % 7.9 L D PT with INR 39.10 H INR 3.46 H Sodium 126 L Chloride 88 L D Creatinine 0.5 L D Random Glucose 116 H D Creatine Kinase 199 H CK-MB (CK-2) 7.169 H B-Natriuretic Peptide Cholesterol HDL Cholesterol Urine Glucose (UA) Urine Ketones Urine Blood 08/10/17 08/10/17 08/11/17 23:27 23:39 01:51 WBC RDW Neutrophils % Lymphocytes % PT with INR INR Sodium Chloride Creatinine Random Glucose Creatine Kinase 258 H CK-MB (CK-2) 7.548 H B-Natriuretic Peptide 1726.75 H Cholesterol HDL Cholesterol Urine Glucose (UA) 1+ H Urine Ketones Trace H Urine Blood 1+ H 08/11/17 08/11/17 08/11/17 01:51 07:56 07:56 WBC 10.8 H RDW 24.4 H Neutrophils % 84.2 H Lymphocytes % 7.8 L PT with INR INR Sodium 126 L 126 L Chloride 90 L 88 L Creatinine 0.5 L 0.5 L Random Glucose 110 H Creatine Kinase CK-MB (CK-2) B-Natriuretic Peptide Cholesterol 204 H HDL Cholesterol 120 H Urine Glucose (UA) Urine Ketones Urine Blood IMP; Syncope Hypertension Chest Wall Pain lateral to upper Thoracic Spine Acute and chronic Pain ? EKG changes Nausea and ? GI Bleed Plan: Await Chest CTA Cardiology Eval Gi Eval F/U lab telemetry Neuro Eval
[2017-08-11] MEDS ORDERED: FLU VACCINE QUAD 60 MCG/0.5 ML (MDV 17-18) IM ONE (10:00)
--- NOTE | 2017-08-11 10:03 | CONSULT ---
Consult - text type - Consultation Consultation Note: Neurology History of Present Illness The patient is a 86 year old female brought via EMS, with a significant past medical history of chronic anemia (Iron Infusions twice a month), ulcerate esophagous, IBS, HTN and HLD, who presents to the emergency department after a syncopal episode. EMS noted that the patient was on a camode urinating when she syncopized and fell forward. Reportedly was unresponsive then becoming alert and oriented x4. She currently complains of back spasms which range from mild to moderate. Her son was at the bedside and confirmed history. She has prior syncope but last one was 3 years ago. She completed CT head which did not show acute changes. There was chronic L frontal sinus disease. CT thorax and chest compelted and did not show aneurysm or dissection, large hernia noted, ? biliary stricturing. Neurologic exam was nonfocal and patient mental status at baseline. Son reported she had injection in her back by Dr. escobar with relief in the past. She is getting pain medication in the hospital. Past History - Past Medical History Anemia: Yes Asthma: No Cancer: No Cardiac Disorders: No CVA: No COPD: No CHF: No Dementia: No Diabetes: No GI Disorders: Yes (ULCERATED ESOPHAGUS; IRRITABLE BOWEL SYNDR., HH) Disorders: No HTN: Yes Hypercholesterolemia: Yes Liver Disease: No Seizures: No Thyroid Disease: No - Surgical History Abdominal Surgery: No Appendectomy: No Cardiac Surgery: No Cholecystectomy: No Lung Surgery: No Neurologic Surgery: Yes (SPINAL FUSION; LAMINECTOMY) Orthopedic Surgery: Yes (LT CARPAL TUNNEL) - Suicide/Smoking/Psychosocial Hx Smoking Status: Yes Smoking History: Former smoker Have you smoked in the past 12 months: No Number of Cigarettes Smoked Daily: 0 If you are a former smoker, when did you quit?: 50 years ago Hx Alcohol Use: No Drug/Substance Use Hx: No Substance Use Type: None Hx Substance Use Treatment: No - Past Medical History Allergies/Adverse Reactions: Allergies Allergy/AdvReac Type Severity Reaction Status Date / Time No Known Allergies Allergy Verified 08/10/17 21:58 Home Medications: Ambulatory Orders Simvastatin [Zocor -] 20 mg PO HS 04/26/13 Nebivolol [Bystolic -] 10 mg PO DAILY #0 tab 04/28/13 Ibandronate Sodium [Boniva] 150 mg PO MONTHLY tablet 07/19/13 Gabapentin 300 mg PO BID 07/31/13 Calcium Citrate/Vitamin D3 [Citracal + D Caplet] 2 each PO BID tablet 09/26/13 Prednisone 5 mg PO DAILY #30 01/26/14 Pantoprazole Sodium [Protonix -] 40 mg PO BID 03/06/14 Sertraline HCl [Zoloft -] 50 mg PO HS 03/06/14 Amlodipine Besylate [Norvasc -] 2.5 mg PO ASDIR PRN 10/15/16 Methotrexate [Mexate -] 7 tab PO Q7D 10/15/16 Warfarin Sodium [Coumadin] 1 tab PO Q2D 10/16/16 Acetaminophen [Tylenol .Regular Strength -] 650 mg PO Q6H PRN #0 tablet Albuterol 0.083% Nebulizer Yaneth [Ventolin 0.083% Nebulizer Soln -] 1 amp NEB Q4H PRN #0 amp 10/20/16 Cyclobenzaprine HCl [Flexeril -] 10 mg PO HS PRN #0 tablet 10/20/16 Guaifenesin [Robitussin -] 10 ml PO Q4H PRN #0 cup 10/20/16 Lidocaine 5% Patch [Lidoderm -] 2 patch TP DAILY patch 10/20/16 Polyethylene Glycol 3350 [Miralax 119 gm Btl -] 17 gm PO BID bottle 10/20/16 Tramadol HCl [Ultram -] 50 mg PO Q8H PRN #0 tablet MDD 3 10/20/16 Warfarin Na [Coumadin -] 2.5 mg PO Q2D #0 tablet 10/20/16 Albuterol Sulfate Inhaler - [Ventolin HFA Inhaler -] 1 - 2 inh PO QID #1 inhaler 12/30/16 Losartan Potassium [Cozaar -] 100 mg PO DAILY 08/09/17 Review of Systems GENERAL/CONSTITUTIONAL: No fever or chills. No weakness. HEAD, EYES, EARS, NOSE AND THROAT: No change in vision. No ear pain or discharge. No sore throat.- CARDIOVASCULAR: No chest pain or shortness of breath RESPIRATORY: No cough, wheezing, or hemoptysis. GASTROINTESTINAL: No nausea, vomiting, diarrhea or constipation. GENITOURINARY: (+) Frequency. No dysuria, or change in urination. MUSCULOSKELETAL: (+) Back spasms. No joint or muscle swelling or pain. No neck or back pain. SKIN: No rash NEUROLOGIC: (+) Syncope. No headache, vertigo, change in strength/sensation. ENDOCRINE: No increased thirst. No abnormal weight change HEMATOLOGIC/LYMPHATIC: No anemia, easy bleeding, or history of blood clots. ALLERGIC/IMMUNOLOGIC: No hives or skin allergy. *Physical Exam Vital Signs Period Temp Pulse Resp BP Sys/Ying Pulse Ox Last 24 Hr 97.9 F-98.5 F 76-91 14-18 153-167/83-92 96-98 GENERAL: Awake, alert, and fully oriented, in no acute distress HEAD: No signs of trauma, normocephalic, atraumatic EYES: PERRLA, EOMI, sclera anicteric, conjunctiva clear ENT: Auricles normal inspection, hearing grossly normal, nares patent, oropharynx clear without exudates. Moist mucosa NECK: Normal ROM, supple, no lymphadenopathy, JVD, or masses LUNGS: No distress, speaks full sentences, clear to auscultation bilaterally HEART: Regular rate and rhythm, normal S1 and S2, no murmurs, rubs or gallops, peripheral pulses normal and equal bilaterally. ABDOMEN: Soft, nontender, normoactive bowel sounds. No guarding, no rebound. No masses EXTREMITIES : Normal inspection, Normal range of motion, no edema. No clubbing or cyanosis. NEUROLOGICAL: Cranial nerves II through XII grossly intact. Normal speech, no focal sensorimotor deficits, finger to nose normal, gait was deferred SKIN: Warm, Dry, normal turgor, no rashes or lesions noted. CBCD WBC 10.8 K/mm3 (4.0-10.0) H 08/11/17 07:56 RBC 4.64 M/mm3 (3.60-5.2) 08/11/17 07:56 Hgb 12.4 GM/dL (10.7-15.3) 08/11/17 07:56 Hct 38.8 % (32.4-45.2) 08/11/17 07:56 MCV 83.5 fl (80-96) 08/11/17 07:56 MCHC 32.0 g/dl (32.0-36.0) 08/11/17 07:56 RDW 24.4 % (11.6-15.6) H 08/11/17 07:56 Plt Count 278 K/MM3 (134-434) 08/11/17 07:56 MPV 7.5 fl (7.5-11.1) 08/11/17 07:56 CMP Sodium 126 mmol/L (136-145) L 08/11/17 07:56 Potassium 4.7 mmol/L (3.5-5.1) 08/11/17 07:56 Chloride 88 mmol/L (98-107) L 08/11/17 07:56 Carbon Dioxide 30 mmol/L (21-32) D 08/11/17 07:56 Anion Gap 8 (8-16) 08/11/17 07:56 BUN 13 mg/dL (7-18) 08/11/17 07:56 Creatinine 0.5 mg/dL (0.55-1.02) L 08/11/17 07:56 Creat Clearance w eGFR > 60 (>60) 08/10/17 23:27 Calcium 8.6 mg/dL (8.5-10.1) 08/11/17 07:56 Total Bilirubin 0.6 mg/dL (0.2-1.0) D 08/10/17 23:27 AST 25 U/L (15-37) D 08/10/17 23:27 ALT 31 U/L (12-78) D 08/10/17 23:27 Alkaline Phosphatase 84 U/L (45-117) 08/10/17 23:27 Total Protein 6.6 g/dl (6.4-8.2) 08/10/17 23:27 Albumin 3.8 g/dl (3.4-5.0) 08/10/17 23:27 - RADIOLOGY CT head and CT chest/thorax reviewed Plan 86 year old female brought via EMS, with a significant past medical history of chronic anemia (Iron Infusions twice a month), ulcerate esophagous, IBS, HTN and HLD, who presents to the emergency department after a syncopal episode. EMS noted that the patient was on a camode urinating when she syncopized and fell forward. CT head which did not show acute changes. CT thorax and chest completed and reviewed as well (did not show aneurysm or dissection, large hernia noted, ? biliary stricturing). Neurologic exam was nonfocal and patient mental status at baseline. Do not believe further imaging needed at this time Event likely vasovagal/cardiogenic Would pursue cardiac work up especially in context of Afib (continue monitoring) Continue Coumadin, fall precautions needed Also continue optimization of hyponatremia For back pain, continue pain control, seems musculoskeletal Son reported she had injection in her back by Dr. escobar with relief in the past. Physical therapy recommended
[2017-08-11 10:14] LABS: URINE LEUK ESTERASE Negative (NEGATIVE)
[2017-08-11] MEDS: NEBIVOLOL 10 MG TABLET (FP) PO SCH (10:22)
[2017-08-11] MEDS: LOSARTAN POTASSIUM 50 MG TABLET (FP) PO SCH (10:23)
--- NOTE | 2017-08-11 11:15 | CON.GI ---
Consult Consult Specialty:: GI: Dr. Bunch for Dr. Rodriguez Referred by:: Dr. Hernandez Reason for Consultation:: vomiting - History of Present Illness Chief Complaint: I passed put and vomited once at home History of Present Illness: 86F admitted through [facility] ER for evaluation of syncopal episodes x 2. She describes having vomited once on Wednesday. The admission note describes dark diarrheal BM's prior to admission. She was guaiac negative in the ER. The vomitus was clear with dark liquid as well. She had a recent EGD and colonoscopy with Dr. Kanwal Villavicencio 07/30/17 at [facility] and is scheduled to have a capsule endoscopy performed 08/24/17 at [facility]. Aside from a lerge hiatal hernia, noted on previous endoscopy performed by Dr. Hughes at [facility], Ms. Vaughan does not recall any other significant findings from her recent procedures. She has followed with Dr. 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 LFTs are normal currently. She denies any melena, vitaly rectal bleeding, abdominal pain, continued nausea. She is hungry. - History Source History Provided By: Patient, Medical Record Limitations to Obtaining History: No Limitations - Past Medical History Cardio/Vascular: Yes: HTN, Hyperlipdemia Gastrointestinal: Yes: GERD ...: No Heme/Onc: Yes: Other (DVT and has been on chronic anticoagulation) Rheumatology: Yes: Rheumatoid Arthritis - Past Surgical History Past Surgical History: Yes: Cataract Removal, Laminectomy Additional Surgical History: cervical spinal fusion, sinus surgery - Alcohol/Substance Use Hx Alcohol Use: No History of Substance Use: reports: None - Smoking History Smoking history: Former smoker Have you smoked in the past 12 months: No Aproximately how many cigarettes per day: 0 If you are a former smoker, when did you quit?: 50 years ago - Social History Usual Living Arrangement: Alone () ADL: Independent 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 Place of : [facility] History of Recent Travel: No Home Medications - Allergies Allergies/Adverse Reactions: Allergies Allergy/AdvReac Type Severity Reaction Status Date / Time No Known Allergies Allergy Verified 08/10/17 21:58 - Home Medications Home Medications: Ambulatory Orders Simvastatin [Zocor -] 20 mg PO HS 04/26/13 Nebivolol [Bystolic -] 10 mg PO DAILY #0 tab 04/28/13 Ibandronate Sodium [Boniva] 150 mg PO WEEKLY tablet 07/19/13 Gabapentin 300 mg PO BID 07/31/13 Calcium Citrate/Vitamin D3 [Citracal + D Caplet] 2 each PO BID tablet 09/26/13 Prednisone 5 mg PO DAILY #30 01/26/14 Pantoprazole Sodium [Protonix -] 40 mg PO DAILY 03/06/14 Sertraline HCl [Zoloft -] 50 mg PO HS 03/06/14 Amlodipine Besylate [Norvasc -] 2.5 mg PO ASDIR PRN 10/15/16 Methotrexate [Mexate -] 7 tab PO Q7D 10/15/16 Warfarin Sodium [Coumadin] 5 mg PO Q2D 10/16/16 Acetaminophen [Tylenol .Regular Strength -] 650 mg PO Q6H PRN #0 tablet Tramadol HCl [Ultram -] 50 mg PO Q8H PRN #0 tablet MDD 3 10/20/16 Warfarin Na [Coumadin -] 2.5 mg PO Q2D #0 tablet 10/20/16 Losartan Potassium [Cozaar -] 100 mg PO DAILY 08/09/17 Lidocaine 5% Patch [Lidoderm -] 2 patch TP DAILY PRN 08/11/17 Polyethylene Glycol 3350 [Miralax 119 gm Btl -] 17 gm PO BID PRN 08/11/17 Family Disease History - Family Disease History Family Disease History: Heart Disease: Mother ( age 97: h/o BCA in 80's. HTN ), Other: Father ( age 95: h/o CAD), Mother, Sister (1, healthy), Son (2, healthy) Other Family History: no family history of colorectal cancer or other GI malignancy Review of Systems - Review of Systems Constitutional: denies: Chills Cardiovascular: denies: Chest Pain Respiratory: reports: SOB Gastrointestinal: reports: Constipation, Nausea, Vomiting. denies: Abdominal Pain, Diarrhea, Dysphagia, Melena, Rectal Bleeding, Vomiting Blood Musculoskeletal: reports: Back Pain Physical Exam-GI Vital Signs: Vital Signs Temperature 97.9 F 08/11/17 05:01 Pulse Rate 91 H 08/11/17 05:01 Respiratory Rate 18 10/18/17 05:31 Blood Pressure 157/83 08/11/17 05:01 O2 Sat by Pulse Oximetry (%) 96 08/11/17 05:31 Constitutional: Yes: Calm Eyes: No: Sclera Icterus Cardiovascular: Yes: Regular Rate and Rhythm Respiratory: Yes: Rhonchi (at left lung base) Gastrointestinal Inspection: No: Distention, Scars ...Auscultate: Yes: Normoactive Bowel Sounds ...Palpate: No: Hepatomegaly, Splenomegaly, Tenderness ...Rectal Exam: Yes: Guaiac Negative (no external lesion,. 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 dark BM's described however guaiac negative x 2 and stable H/H. Do not suspect significant GI bleeding contributing to syncope Code(s): R11.10 - VOMITING, UNSPECIFIED (2) Dilated bile duct Assessment/Plan: Noted on current CTA of chest and previous MRI/MRCP I spoke with Dr. kanwal Villavicencio from [facility] as Ms. Vaughan stated that she would like to follow-up with her as opposed to Dr. Rodriguez. Dr. 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 Vaughan has follow-up for capsule endoscopy 08/24. I will be forwarding my consult and CTA report / previous MRI report to her office. Fax is [phone] Code(s): K83.8 - OTHER SPECIFIED DISEASES OF BILIARY TRACT
--- NOTE | 2017-08-11 11:16 | EKG ---
Test Reason : Blood Pressure : / mmHG Vent. Rate : 090 BPM Atrial Rate : 090 BPM P-R Int : 158 ms QRS Dur : 092 ms QT Int : 370 ms P-R-T Axes : 064 -55 074 degrees QTc Int : 452 ms NORMAL SINUS RHYTHM LEFT ANTERIOR FASCICULAR BLOCK ABNORMAL ECG WHEN COMPARED WITH ECG OF 15-OCT-2016 19:16, LEFT ANTERIOR FASCICULAR BLOCK IS NOW PRESENT PRESENT Confirmed by BHAVANI CARUSO, ELIZABETH ([id number]) on 08/11/2017 11:16:21 AM Referred By: Confirmed By:ELIZABETH BECKHAM MD
--- NOTE | 2017-08-11 11:18 | CON.CARD ---
Consult Consult Specialty:: Cardiology - History of Present Illness History of Present Illness: The patient is a 86 year old female brought via EMS, with a significant past medical history of chronic anemia (Iron Infusions twice a month), ulcerate esophagous, IBS, HTN and HLD, who presents to the emergency department after a syncopal episode today. EMS notes that the patient was on a camode urinating when she syncopized and fell forward. She remained unresponsive for 2 minutes before becoming alert and oriented x4. She currently complains of back spasms which range from mild to moderate. It is noted that the patient was in the ED yesterday for back spasms as well, for which she was discharged after improvement of symptoms. This counts as day 4 of her back spasms. She also complaints of frequency associated with her chief complaint. The patient denies chest pain, shortness of breath, headache and dizziness. Denies fever, chills, nausea, vomit, diarrhea and constipation. Denies dysuria, urgency and hematuria. Allergies: None Past surgical history: Spinal fusion, laminectomy, left carpal tunnel Social history: Former smoker. No alcohol or drug use reported - History Source History Provided By: Patient, Medical Record - Past Medical History Cardio/Vascular: Yes: AFIB, Hyperlipdemia Gastrointestinal: Yes: GERD ...: No - Past Surgical History Past Surgical History: Yes: Cataract Removal - Alcohol/Substance Use Hx Alcohol Use: No History of Substance Use: reports: None - Smoking History Smoking history: Former smoker Have you smoked in the past 12 months: No Aproximately how many cigarettes per day: 0 If you are a former smoker, when did you quit?: 50 years ago - Social History ADL: Independent History of Recent Travel: No Home Medications - Allergies Allergies/Adverse Reactions: Allergies Allergy/AdvReac Type Severity Reaction Status Date / Time No Known Allergies Allergy Verified 08/10/17 21:58 - Home Medications Home Medications: Ambulatory Orders Simvastatin [Zocor -] 20 mg PO HS 04/26/13 Nebivolol [Bystolic -] 10 mg PO DAILY #0 tab 04/28/13 Ibandronate Sodium [Boniva] 150 mg PO WEEKLY tablet 07/19/13 Gabapentin 300 mg PO BID 07/31/13 Calcium Citrate/Vitamin D3 [Citracal + D Caplet] 2 each PO BID tablet 09/26/13 Prednisone 5 mg PO DAILY #30 01/26/14 Pantoprazole Sodium [Protonix -] 40 mg PO DAILY 03/06/14 Sertraline HCl [Zoloft -] 50 mg PO HS 03/06/14 Amlodipine Besylate [Norvasc -] 2.5 mg PO ASDIR PRN 10/15/16 Methotrexate [Mexate -] 7 tab PO Q7D 10/15/16 Warfarin Sodium [Coumadin] 5 mg PO Q2D 10/16/16 Acetaminophen [Tylenol .Regular Strength -] 650 mg PO Q6H PRN #0 tablet Tramadol HCl [Ultram -] 50 mg PO Q8H PRN #0 tablet MDD 3 10/20/16 Warfarin Na [Coumadin -] 2.5 mg PO Q2D #0 tablet 10/20/16 Losartan Potassium [Cozaar -] 100 mg PO DAILY 08/09/17 Lidocaine 5% Patch [Lidoderm -] 2 patch TP DAILY PRN 08/11/17 Polyethylene Glycol 3350 [Miralax 119 gm Btl -] 17 gm PO BID PRN 08/11/17 Family Disease History - Family Disease History Family Disease History: Heart Disease: Mother (HTN) Review of Systems - Review of Systems Constitutional: reports: No Symptoms Eyes: reports: No Symptoms HENT: reports: No Symptoms Neck: reports: No Symptoms Cardiovascular: reports: No Symptoms Gastrointestinal: reports: No Symptoms Genitourinary: reports: No Symptoms Breasts: reports: No Symptoms Reported Musculoskeletal: reports: No Symptoms Integumentary: reports: No Symptoms Neurological: reports: Syncope Endocrine: reports: No Symptoms Hematology/Lymphatic: reports: No Symptoms Psychiatric: reports: No Symptoms Vital Signs: Vital Signs Temperature 97.9 F 08/11/17 05:01 Pulse Rate 91 H 08/11/17 05:01 Respiratory Rate 18 08/11/17 05:31 Blood Pressure 157/83 08/11/17 05:01 O2 Sat by Pulse Oximetry (%) 96 08/11/17 05:31 Constitutional: Yes: Well Nourished, No Distress, Calm Eyes: Yes: WNL, Conjunctiva Clear, EOM Intact HENT: Yes: WNL, Atraumatic, Normocephalic Neck: Yes: WNL, Supple, Trachea Midline Respiratory: Yes: WNL, Regular, CTA Bilaterally Gastrointestinal: Yes: WNL, Normal Bowel Sounds Renal/: Yes: WNL Cardiovascular: Yes: WNL, Regular Rate and Rhythm Musculoskeletal: Yes: WNL Extremities: Yes: WNL Integumentary: Yes: WNL Neurological: Yes: WNL, Alert, Oriented ...Motor Strength: WNL Psychiatric: Yes: WNL, Alert, Oriented - Other Data Labs, Other Data: CBC, BMP 08/11/17 07:56 08/11/17 07:56 INR, PTT INR 2.52 (0.82-1.09) H 08/11/17 07:56 Troponin, BNP 08/11/17 07:56 Troponin I < 0.02 Troponin, BNP 08/11/17 07:56 Troponin I < 0.02 Imaging - Results Chest X-ray: Image Reviewed (no i/e) EKG: Image Reviewed (sr jones) Assessment/Plan paf dvt hnt syncope hlp plan echo telemetry cont ac neuro eval
[2017-08-11] MEDS: morphine CARPU-JECT 2 MG/1 ML DISP.SYRIN IVPUSH PRN (12:50)
[2017-08-11] MEDS: ONDANSETRON 4 MG/2 ML VIAL IVPUSH PRN ×2 (12:52→15:55)
[2017-08-11] MEDS: oxyCODONE HCL 5 MG TABLET PO PRN ×2 (15:43→20:28)
[2017-08-11] MEDS: ACETAMINOPHEN 325 MG TABLET (FP) PO PRN (15:47)
[2017-08-11] MEDS: SENNOSIDES 8.6MG TABLET (FP) PO SCH (21:30)
[2017-08-12] MEDS: morphine CARPU-JECT 2 MG/1 ML DISP.SYRIN IVPUSH PRN ×2 (02:12→08:07)
[2017-08-12 08:14] LABS: INR 1.77 (0.82-1.09)
[2017-08-12 08:22] LABS: ANION GAP 6 (8-16); CALCIUM 9.3 mg/dL (8.5-10.1); CO2 31 mmol/L (21-32); GLUCOSE,RANDOM 74 mg/dL (74-106)
[2017-08-12 08:25] LABS: CREATININE 0.5 mg/dL (0.55-1.02)
--- NOTE | 2017-08-12 09:18 | PN ---
Progress Note, Physician Chief Complaint: Pt A&Ox3; intense pain from back spasms. History of Present Illness: The patient is an 86 year old white woman brought via EMS, with a significant past medical history of chronic anemia (Iron Infusions twice a month), esophageal ulcer, IBS, HTN (07/2017 ECHO: normal LVEF; severe MR and TR), and HLD, who presents to the emergency department after a syncopal episode today. EMS notes that the patient was on a camode urinating when she syncopized and fell forward. She remained unresponsive for 2 minutes before becoming alert and oriented x4. She currently complains of back spasms which range from mild to moderate. It is noted that the patient was in the ED yesterday for back spasms as well, for which she was discharged after improvement of symptoms. This counts as day 4 of her back spasms. She also complaints of frequency associated with her chief complaint. The patient denies chest pain, shortness of breath, headache and dizziness. Denies fever, chills, nausea, vomit, diarrhea and constipation. Denies dysuria, urgency and hematuria. Allergies: None Past surgical history: Spinal fusion, laminectomy, left carpal tunnel Social history: Former smoker. No alcohol or drug use reported - Current Medication List Current Medications: Active Medications Acetaminophen (Tylenol -) 325 mg PO Q4H PRN PRN Reason: PAIN Stop: 08/14/17 15:03 Last Admin: 08/11/17 15:47 Dose: 325 mg Albuterol Sulfate (Ventolin 0.083% Nebulizer Soln -) 1 amp NEB Q6H PRN PRN Reason: SHORT OF BREATH/WHEEZING Lidocaine (Lidoderm Patch -) 1 patch TP DAILY [facility] Losartan Potassium (Cozaar -) 50 mg PO DAILY [facility] Last Admin: 08/11/17 10:23 Dose: 50 mg Miscellaneous (Lidoderm Patch Removal) 1 each MC DAILY@2200 [facility] Morphine Sulfate (Morphine Injection -) 2 mg IVPUSH Q4H PRN PRN Reason: PAIN Last Admin: 08/12/17 08:07 Dose: 2 mg Nebivolol (Bystolic -) 10 mg PO DAILY [facility] Last Admin: 08/11/17 10:22 Dose: 10 mg Ondansetron HCl (Zofran Injection) 4 mg IVPUSH Q6H PRN PRN Reason: NAUSEA AND/OR VOMITING Last Admin: 08/11/17 15:55 Dose: 4 mg Oxycodone HCl (Roxicodone -) 5 mg PO Q4H PRN PRN Reason: PAIN Last Admin: 08/11/17 20:28 Dose: 5 mg Polyethylene Glycol (Miralax (For Daily Use) -) 17 gm PO DAILY [facility] Senna (Senna -) 2 tab PO HS [facility] Last Admin: 08/11/17 21:30 Dose: 2 tab Warfarin Sodium (Coumadin -) 2.5 mg PO DAILY@1800 [facility] - Objective Vital Signs: Vital Signs Temperature 97.9 F 08/12/17 08:18 Pulse Rate 72 08/12/17 08:18 Respiratory Rate 18 08/12/17 08:24 Blood Pressure 134/69 08/12/17 08:18 O2 Sat by Pulse Oximetry (%) 98 08/12/17 08:24 Constitutional: Yes: Anxious, Thin, Other (pain from back spasma) Eyes: Yes: WNL HENT: Yes: WNL Neck: Yes: WNL Cardiovascular: Yes: Regular Rate and Rhythm Respiratory: Yes: Regular Gastrointestinal: Yes: Soft ...Rectal Exam: Yes: Deferred Genitourinary: No: Anuria Breast(s): Yes: WNL Musculoskeletal: Yes: Back Pain, Muscle Weakness Extremities: Yes: Cool Edema: No Peripheral Pulses WNL: Yes Integumentary: Yes: WNL Neurological: Yes: Alert, Oriented, Weakness Labs: CBC, BMP 08/11/17 07:56 08/12/17 05:25 INR, PTT INR 1.77 (0.82-1.09) H 08/12/17 05:25 - ....Imaging Other: Image Reviewed (telemetry: NSR; occarional APCs) Problem List - Problems (1) Dehydration Code(s): E86.0 - DEHYDRATION (2) Elevated INR Code(s): R79.1 - ABNORMAL COAGULATION PROFILE (3) Hyponatremia Code(s): E87.1 - HYPO-OSMOLALITY AND HYPONATREMIA (4) Syncope and collapse Assessment/Plan: Sycnope after urination. orthostatic VS checks. Avoid dehydrtion. ECHO: normal LVEF; severe MR and TR. Remains in severe pain from back spasms. F/u regarding possiblity of biliary stricture noted on CT chest. Code(s): R55 - SYNCOPE AND COLLAPSE (5) GERD (gastroesophageal reflux disease) Code(s): K21.9 - GASTRO-ESOPHAGEAL REFLUX DISEASE WITHOUT ESOPHAGITIS (6) HLD (hyperlipidemia) Code(s): E78.5 - HYPERLIPIDEMIA, UNSPECIFIED (7) HTN (hypertension) Assessment/Plan: on Bystolic and losartan. Code(s): I10 - ESSENTIAL (PRIMARY) HYPERTENSION (8) Back spasm Assessment/Plan: severe, unrelenting pain. Pain management in progress; on morphine, and Lidocaine patch; has been on Toradol. Code(s): M62.830 - MUSCLE SPASM OF BACK (9) Paroxysmal atrial fibrillation Assessment/Plan: on Bystolic for HR and BP. On wafrarin; keep INR 2-3. Code(s): I48.0 - PAROXYSMAL ATRIAL FIBRILLATION
--- NOTE | 2017-08-12 09:19 | PN ---
Progress Note (short form) - Note Progress Note: patient seen and examined thia AM patient still experiencing severe spasms of pain on the left side above the left costal margin posteriorly and lateral to the third or fourth thoracic spine also posteriorly. These areas are very tender to touch and when she turns or moves. She has terrible spasms. X-rays of the ribs were ordered and have not been done yet. She is been seen by GI and neurological service and cardiology and so far no unusual new findings have been discovered. She was seen by the pain specialist Dr. Herbert last evening and he will return today and hopefully give me advice on any further recommendations for treatment. Lidoderm patches were ordered this morning. On exam: Vital Signs Temp 98.0 F 08/12/17 14:00 Pulse 78 08/12/17 14:00 Resp 18 08/12/17 08:24 BP 128/64 08/12/17 14:00 Pulse Ox 98 08/12/17 08:24 Intake & Output 08/11/17 08/12/17 08/12/17 23:59 11:59 23:59 Intake Total 300 220 250 Balance 300 220 250 Intake: IV 10 rfa 20 08/11/2017 10 IVPB 0 Oral 300 220 240 Other: Voiding Method Bedpan Toilet # Unmeasured Voids Void 2 1 2 Bowel Movement No No patient is alert Slightly pale. Has terrible spasms in the lower back in the rib area and the upper back when turning or moving. these areas are also very tender to touch; no rashes noted Chest clear to auscultation Heart regular Abdomen soft. Extremities no edema. Abnormal Lab Results 08/12/17 08/12/17 05:25 05:25 PT with INR 20.00 H INR 1.77 H Sodium 126 L Chloride 89 L Anion Gap 6 L Creatinine 0.5 L impression: Severe pain upper spine and ribs left side and lower ribs posteriorly and laterally ;questionable occult fracture. 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 Multiple lumbosacral disc surgeries. History of DVT and paroxysmal A. fib. Anxiety. Nausea. Hyponatremia possibly contributing to nausea. Plan: Restart Coumadin 2.5 mg a day urine sodium. Followup lab Pain physician. Return visit
[2017-08-12] MEDS: LOSARTAN POTASSIUM 50 MG TABLET (FP) PO SCH (09:24)
[2017-08-12] MEDS: POLYETHYLENE GLYCOL 3350 119 GM BTL PO SCH (09:24)
[2017-08-12] MEDS: NEBIVOLOL 10 MG TABLET (FP) PO SCH (09:24)
[2017-08-12] MEDS ORDERED: LIDOCAINE 5% TOPICAL PATCH TP SCH (10:00)
--- NOTE | 2017-08-12 10:09 | PN ---
Progress Note (short form) - Note Progress Note: Neurology History of Present Illness The patient is a 86 year old female brought via EMS, with a significant past medical history of chronic anemia (Iron Infusions twice a month), ulcerate esophagous, IBS, HTN and HLD, who presents to the emergency department after a syncopal episode. EMS noted that the patient was on a camode urinating when she syncopized and fell forward. Reportedly was unresponsive then becoming alert and oriented x4. She currently complains of back spasms which range from mild to moderate. Her son was at the bedside and confirmed history. She has prior syncope but last one was 3 years ago. She completed CT head which did not show acute changes. There was chronic L frontal sinus disease. CT thorax and chest compelted and did not show aneurysm or dissection, large hernia noted, ? biliary stricturing. Neurologic exam was nonfocal and patient mental status at baseline. Son reported she had injection in her back by Dr. escobar with relief in the past. She is getting pain medication in the hospital. Dr. Escobar to see patient today. She is still having discomfort and optimistic that Dr. Escobar will be able to help her. GI note reviewed. Patient completed Echo with normal LV function and Ejection fraction. Active Medications Acetaminophen (Tylenol -) 325 mg PO Q4H PRN PRN Reason: PAIN Stop: 08/14/17 15:03 Last Admin: 08/11/17 15:47 Dose: 325 mg Albuterol Sulfate (Ventolin 0.083% Nebulizer Soln -) 1 amp NEB Q6H PRN PRN Reason: SHORT OF BREATH/WHEEZING Lidocaine (Lidoderm Patch -) 1 patch TP DAILY [facility] Last Admin: 08/12/17 09:27 Dose: 1 patch Losartan Potassium (Cozaar -) 50 mg PO DAILY [facility] Last Admin: 08/12/17 09:24 Dose: 50 mg Miscellaneous (Lidoderm Patch Removal) 1 each MC DAILY@2200 [facility] Morphine Sulfate (Morphine Injection -) 2 mg IVPUSH Q4H PRN PRN Reason: PAIN Last Admin: 08/12/17 08:07 Dose: 2 mg Nebivolol (Bystolic -) 10 mg PO DAILY [facility] Last Admin: 08/12/17 09:24 Dose: 10 mg Ondansetron HCl (Zofran Injection) 4 mg IVPUSH Q6H PRN PRN Reason: NAUSEA AND/OR VOMITING Last Admin: 08/11/17 15:55 Dose: 4 mg Oxycodone HCl (Roxicodone -) 5 mg PO Q4H PRN PRN Reason: PAIN Last Admin: 08/11/17 20:28 Dose: 5 mg Polyethylene Glycol (Miralax (For Daily Use) -) 17 gm PO DAILY [facility] Last Admin: 08/12/17 09:24 Dose: 17 grams Senna (Senna -) 2 tab PO HS [facility] Last Admin: 08/11/17 21:30 Dose: 2 tab Warfarin Sodium (Coumadin -) 2.5 mg PO DAILY@1800 [facility] *Physical Exam Vital Signs Temperature 97.9 F 08/12/17 08:18 Pulse Rate 72 08/12/17 08:18 Respiratory Rate 18 08/12/17 08:24 Blood Pressure 134/69 08/12/17 08:18 O2 Sat by Pulse Oximetry (%) 98 08/12/17 08:24 GENERAL: Awake, alert, and fully oriented, in no acute distress HEAD: No signs of trauma, normocephalic, atraumatic EYES: PERRLA, EOMI, sclera anicteric, conjunctiva clear ENT: Auricles normal inspection, hearing grossly normal, nares patent, oropharynx clear without exudates. Moist mucosa NECK: Normal ROM, supple, no lymphadenopathy, JVD, or masses LUNGS: No distress, speaks full sentences, clear to auscultation bilaterally HEART: Regular rate and rhythm, normal S1 and S2, no murmurs, rubs or gallops, peripheral pulses normal and equal bilaterally. ABDOMEN: Soft, nontender, normoactive bowel sounds. No guarding, no rebound. No masses EXTREMITIES : Normal inspection, Normal range of motion, no edema. No clubbing or cyanosis. NEUROLOGICAL: Cranial nerves II through XII grossly intact. Normal speech, no focal sensorimotor deficits, finger to nose normal, gait was deferred SKIN: Warm, Dry, normal turgor, no rashes or lesions noted. CBCD WBC 10.8 K/mm3 (4.0-10.0) H 08/11/17 07:56 RBC 4.64 M/mm3 (3.60-5.2) 08/11/17 07:56 Hgb 12.4 GM/dL (10.7-15.3) 08/11/17 07:56 Hct 38.8 % (32.4-45.2) 08/11/17 07:56 MCV 83.5 fl (80-96) 08/11/17 07:56 MCHC 32.0 g/dl (32.0-36.0) 08/11/17 07:56 RDW 24.4 % (11.6-15.6) H 08/11/17 07:56 Plt Count 278 K/MM3 (134-434) 08/11/17 07:56 MPV 7.5 fl (7.5-11.1) 08/11/17 07:56 CMP Sodium 126 mmol/L (136-145) L 08/12/17 05:25 Potassium 4.6 mmol/L (3.5-5.1) 08/12/17 05:25 Chloride 89 mmol/L (98-107) L 08/12/17 05:25 Carbon Dioxide 31 mmol/L (21-32) 08/12/17 05:25 Anion Gap 6 (8-16) L 08/12/17 05:25 BUN 16 mg/dL (7-18) D 08/12/17 05:25 Creatinine 0.5 mg/dL (0.55-1.02) L 08/12/17 05:25 Creat Clearance w eGFR > 60 (>60) 08/10/17 23:27 Calcium 9.3 mg/dL (8.5-10.1) 08/12/17 05:25 Total Bilirubin 0.6 mg/dL (0.2-1.0) D 08/10/17 23:27 AST 25 U/L (15-37) D 08/10/17 23:27 ALT 31 U/L (12-78) D 08/10/17 23:27 Alkaline Phosphatase 84 U/L (45-117) 08/10/17 23:27 Total Protein 6.6 g/dl (6.4-8.2) 08/10/17 23:27 Albumin 3.8 g/dl (3.4-5.0) 08/10/17 23:27 - RADIOLOGY CT head and CT chest/thorax reviewed Plan 86 year old female brought via EMS, with a significant past medical history of chronic anemia (Iron Infusions twice a month), ulcerate esophagous, IBS, HTN and HLD, who presents to the emergency department after a syncopal episode. EMS noted that the patient was on a camode urinating when she syncopized and fell forward. CT head which did not show acute changes. CT thorax and chest completed and reviewed as well (did not show aneurysm or dissection, large hernia noted, ? biliary stricturing). Neurologic exam was nonfocal and patient mental status at baseline. Do not believe further imaging needed at this time Event likely vasovagal/cardiogenic Echo reviewed GI note reviewed Would pursue cardiac work up especially in context of Afib (continue monitoring) Continue Coumadin, fall precautions needed Also continue optimization of hyponatremia For back pain, continue pain control, seems musculoskeletal Awaiting evaluation by Dr. escobar with relief in the past. Physical therapy recommended
[2017-08-12] MEDS: WARFARIN NA 2.5 MG TABLET (FP) PO SCH (17:10)
[2017-08-12] MEDS: ONDANSETRON 4 MG/2 ML VIAL IVPUSH PRN (20:08)
[2017-08-12] MEDS: LIDOCAINE PATCH REMOVAL MC SCH (21:40)
[2017-08-12] MEDS: SENNOSIDES 8.6MG TABLET (FP) PO SCH (21:40)
[2017-08-12] MEDS ORDERED: LIDOCAINE 5% TOPICAL PATCH TP ONE (21:45)
[2017-08-13 07:28] LABS: INR 1.47 (0.82-1.09); PROTHROMBIN TIME (PATIENT) 16.6 SEC (9.98-11.88)
[2017-08-13 07:39] LABS: ANION GAP 10 (8-16); CALCIUM 8.9 mg/dL (8.5-10.1); CO2 30 mmol/L (21-32); CREATININE 0.6 mg/dL (0.55-1.02); GLUCOSE,RANDOM 77 mg/dL (74-106)
--- NOTE | 2017-08-13 09:40 | PN ---
Progress Note, Physician Chief Complaint: Pt A&Ox3; still has significant back pain, though slightly less than yesterday. Denies chest pain, dyspnea, or palpitations. History of Present Illness: The patient is an 86 year old white woman brought via EMS, with a significant past medical history of chronic anemia (Iron Infusions twice a month), esophageal ulcer, IBS, HTN (07/2017 ECHO: normal LVEF; severe MR and TR), and HLD, who presents to the emergency department after a syncopal episode today. EMS notes that the patient was on a camode urinating when she syncopized and fell forward. She remained unresponsive for 2 minutes before becoming alert and oriented x4. She currently complains of back spasms which range from mild to moderate. It is noted that the patient was in the ED yesterday for back spasms as well, for which she was discharged after improvement of symptoms. This counts as day 4 of her back spasms. She also complaints of frequency associated with her chief complaint. The patient denies chest pain, shortness of breath, headache and dizziness. Denies fever, chills, nausea, vomit, diarrhea and constipation. Denies dysuria, urgency and hematuria. Allergies: None Past surgical history: Spinal fusion, laminectomy, left carpal tunnel Social history: Former smoker. No alcohol or drug use reported - Current Medication List Current Medications: Active Medications Acetaminophen (Tylenol -) 325 mg PO Q4H PRN PRN Reason: PAIN Stop: 08/14/17 15:03 Last Admin: 08/11/17 15:47 Dose: 325 mg Albuterol Sulfate (Ventolin 0.083% Nebulizer Soln -) 1 amp NEB Q6H PRN PRN Reason: SHORT OF BREATH/WHEEZING Lidocaine (Lidoderm Patch -) 2 patch TP DAILY [facility] Losartan Potassium (Cozaar -) 50 mg PO DAILY [facility] Last Admin: 08/12/17 09:24 Dose: 50 mg Miscellaneous (Lidoderm Patch Removal) 1 each MC DAILY@2200 [facility] Last Admin: 08/12/17 21:40 Dose: Not Given Morphine Sulfate (Morphine Injection -) 2 mg IVPUSH Q4H PRN PRN Reason: PAIN Last Admin: 08/12/17 08:07 Dose: 2 mg Nebivolol (Bystolic -) 10 mg PO DAILY [facility] Last Admin: 08/12/17 09:24 Dose: 10 mg Ondansetron HCl (Zofran Injection) 4 mg IVPUSH Q6H PRN PRN Reason: NAUSEA AND/OR VOMITING Last Admin: 08/12/17 20:08 Dose: 4 mg Oxycodone HCl (Roxicodone -) 5 mg PO Q4H PRN PRN Reason: PAIN Last Admin: 08/11/17 20:28 Dose: 5 mg Polyethylene Glycol (Miralax (For Daily Use) -) 17 gm PO DAILY [facility] Last Admin: 08/12/17 09:24 Dose: 17 grams Senna (Senna -) 2 tab PO HS [facility] Last Admin: 08/12/17 21:40 Dose: 2 tab Warfarin Sodium (Coumadin -) 2.5 mg PO DAILY@1800 [facility] Last Admin: 08/12/17 17:10 Dose: 2.5 mg - Objective Vital Signs: Vital Signs Temperature 97.7 F 08/13/17 09:12 Pulse Rate 78 08/13/17 09:12 Respiratory Rate 18 08/13/17 09:12 Blood Pressure 130/66 08/13/17 09:12 O2 Sat by Pulse Oximetry (%) 96 08/12/17 21:00 Constitutional: Yes: Calm Eyes: Yes: WNL HENT: Yes: WNL Neck: Yes: WNL Cardiovascular: Yes: Regular Rate and Rhythm, S1, S2, S4 Respiratory: Yes: Regular Gastrointestinal: Yes: Soft ...Rectal Exam: Yes: Deferred Genitourinary: No: Anuria Musculoskeletal: Yes: Back Pain Extremities: Yes: WNL Edema: No Peripheral Pulses WNL: Yes Integumentary: Yes: WNL Neurological: Yes: Weakness, Other Psychiatric: Yes: WNL Labs: CBC, BMP 08/11/17 07:56 08/13/17 06:45 INR, PTT INR 1.47 (0.82-1.09) H 08/13/17 06:45 Abnormal Lab Results 08/13/17 08/13/17 06:45 06:45 PT with INR 16.60 H INR 1.47 H Sodium 129 L Chloride 89 L BUN 19 H - ....Imaging Cat Scan: Report Reviewed EKG: Image Reviewed (NSR; LAFB) Problem List - Problems (1) Dehydration Code(s): E86.0 - DEHYDRATION (2) Elevated INR Assessment/Plan: INR 1.47; keep at 2-3 Code(s): R79.1 - ABNORMAL COAGULATION PROFILE (3) Hyponatremia Assessment/Plan: Na 126-->129. Code(s): E87.1 - HYPO-OSMOLALITY AND HYPONATREMIA (4) Syncope and collapse Assessment/Plan: Sycnope after urination. orthostatic VS checks. Avoid dehydrtion. ECHO: normal LVEF; severe MR and TR. Remains in severe pain from back spasms. F/u regarding possibility of biliary stricture noted on CT chest. Code(s): R55 - SYNCOPE AND COLLAPSE (5) GERD (gastroesophageal reflux disease) Code(s): K21.9 - GASTRO-ESOPHAGEAL REFLUX DISEASE WITHOUT ESOPHAGITIS (6) HLD (hyperlipidemia) Code(s): E78.5 - HYPERLIPIDEMIA, UNSPECIFIED (7) HTN (hypertension) Assessment/Plan: on Bystolic and losartan. Code(s): I10 - ESSENTIAL (PRIMARY) HYPERTENSION (8) Back spasm Code(s): M62.830 - MUSCLE SPASM OF BACK (9) Paroxysmal atrial fibrillation Code(s): I48.0 - PAROXYSMAL ATRIAL FIBRILLATION
[2017-08-13] MEDS: NEBIVOLOL 10 MG TABLET (FP) PO SCH (09:58)
[2017-08-13] MEDS: LOSARTAN POTASSIUM 50 MG TABLET (FP) PO SCH (09:59)
--- NOTE | 2017-08-13 10:14 | PN ---
Progress Note (short form) - Note Progress Note: Neurology History of Present Illness The patient is a 86 year old female brought via EMS, with a significant past medical history of chronic anemia (Iron Infusions twice a month), ulcerate esophagous, IBS, HTN and HLD, who presents to the emergency department after a syncopal episode. EMS noted that the patient was on a camode urinating when she syncopized and fell forward. Reportedly was unresponsive then becoming alert and oriented x4. She currently complains of back spasms which range from mild to moderate. Her son was at the bedside and confirmed history. She has prior syncope but last one was 3 years ago. She completed CT head which did not show acute changes. There was chronic L frontal sinus disease. CT thorax and chest compelted and did not show aneurysm or dissection, large hernia noted, ? biliary stricturing. Neurologic exam was nonfocal and patient mental status at baseline. Son reported she had injection in her back by Dr. escobar with relief in the past. She is getting pain medication in the hospital. Dr. Escobar not yet evaluated. Patient completed Echo with normal LV function and Ejection fraction. Spoke with PCP, otherwise neurologically stable. Active Medications Acetaminophen (Tylenol -) 325 mg PO Q4H PRN PRN Reason: PAIN Stop: 08/14/17 15:03 Last Admin: 08/11/17 15:47 Dose: 325 mg Albuterol Sulfate (Ventolin 0.083% Nebulizer Soln -) 1 amp NEB Q6H PRN PRN Reason: SHORT OF BREATH/WHEEZING Lidocaine (Lidoderm Patch -) 2 patch TP DAILY [facility] Losartan Potassium (Cozaar -) 50 mg PO DAILY [facility] Last Admin: 08/13/17 09:59 Dose: 50 mg Miscellaneous (Lidoderm Patch Removal) 1 each MC DAILY@2200 [facility] Last Admin: 08/12/17 21:40 Dose: Not Given Morphine Sulfate (Morphine Injection -) 2 mg IVPUSH Q4H PRN PRN Reason: PAIN Last Admin: 08/12/17 08:07 Dose: 2 mg Nebivolol (Bystolic -) 10 mg PO DAILY [facility] Last Admin: 08/13/17 09:58 Dose: 10 mg Ondansetron HCl (Zofran Injection) 4 mg IVPUSH Q6H PRN PRN Reason: NAUSEA AND/OR VOMITING Last Admin: 08/12/17 20:08 Dose: 4 mg Oxycodone HCl (Roxicodone -) 5 mg PO Q4H PRN PRN Reason: PAIN Last Admin: 08/11/17 20:28 Dose: 5 mg Polyethylene Glycol (Miralax (For Daily Use) -) 17 gm PO DAILY [facility] Last Admin: 08/12/17 09:24 Dose: 17 grams Senna (Senna -) 2 tab PO HS [facility] Last Admin: 08/12/17 21:40 Dose: 2 tab Warfarin Sodium (Coumadin -) 2.5 mg PO DAILY@1800 [facility] Last Admin: 08/12/17 17:10 Dose: 2.5 mg Warfarin Sodium (Coumadin -) 7.5 mg PO ONCE@1800 [facility] Stop: 08/13/17 18:01 *Physical Exam Vital Signs Temperature 97.7 F 08/13/17 09:12 Pulse Rate 78 08/13/17 09:12 Respiratory Rate 18 08/13/17 09:12 Blood Pressure 130/66 08/13/17 09:12 O2 Sat by Pulse Oximetry (%) 96 08/12/17 21:00 GENERAL: Awake, alert, and fully oriented, in no acute distress HEAD: No signs of trauma, normocephalic, atraumatic EYES: PERRLA, EOMI, sclera anicteric, conjunctiva clear ENT: Auricles normal inspection, hearing grossly normal, nares patent, oropharynx clear without exudates. Moist mucosa NECK: Normal ROM, supple, no lymphadenopathy, JVD, or masses LUNGS: No distress, speaks full sentences, clear to auscultation bilaterally HEART: Regular rate and rhythm, normal S1 and S2, no murmurs, rubs or gallops, peripheral pulses normal and equal bilaterally. ABDOMEN: Soft, nontender, normoactive bowel sounds. No guarding, no rebound. No masses EXTREMITIES : Normal inspection, Normal range of motion, no edema. No clubbing or cyanosis. NEUROLOGICAL: Cranial nerves II through XII grossly intact. Normal speech, no focal sensorimotor deficits, finger to nose normal, gait was deferred CBCD WBC 10.8 K/mm3 (4.0-10.0) H 08/11/17 07:56 RBC 4.64 M/mm3 (3.60-5.2) 08/11/17 07:56 Hgb 12.4 GM/dL (10.7-15.3) 08/11/17 07:56 Hct 38.8 % (32.4-45.2) 08/11/17 07:56 MCV 83.5 fl (80-96) 08/11/17 07:56 MCHC 32.0 g/dl (32.0-36.0) 08/11/17 07:56 RDW 24.4 % (11.6-15.6) H 08/11/17 07:56 Plt Count 278 K/MM3 (134-434) 08/11/17 07:56 MPV 7.5 fl (7.5-11.1) 08/11/17 07:56 CMP Sodium 129 mmol/L (136-145) L 08/13/17 06:45 Potassium 4.5 mmol/L (3.5-5.1) 08/13/17 06:45 Chloride 89 mmol/L (98-107) L 08/13/17 06:45 Carbon Dioxide 30 mmol/L (21-32) 08/13/17 06:45 Anion Gap 10 (8-16) 08/13/17 06:45 BUN 19 mg/dL (7-18) H 08/13/17 06:45 Creatinine 0.6 mg/dL (0.55-1.02) 08/13/17 06:45 Creat Clearance w eGFR > 60 (>60) 08/10/17 23:27 Calcium 8.9 mg/dL (8.5-10.1) 08/13/17 06:45 Total Bilirubin 0.6 mg/dL (0.2-1.0) D 08/10/17 23:27 AST 25 U/L (15-37) D 08/10/17 23:27 ALT 31 U/L (12-78) D 08/10/17 23:27 Alkaline Phosphatase 84 U/L (45-117) 08/10/17 23:27 Total Protein 6.6 g/dl (6.4-8.2) 08/10/17 23:27 Albumin 3.8 g/dl (3.4-5.0) 08/10/17 23:27 - RADIOLOGY CT head and CT chest/thorax reviewed Plan 86 year old female brought via EMS, with a significant past medical history of chronic anemia (Iron Infusions twice a month), ulcerate esophagous, IBS, HTN and HLD, who presents to the emergency department after a syncopal episode. EMS noted that the patient was on a camode urinating when she syncopized and fell forward. CT head which did not show acute changes. CT thorax and chest completed and reviewed as well (did not show aneurysm or dissection, large hernia noted, ? biliary stricturing). Neurologic exam was nonfocal and patient mental status at baseline. Do not believe further imaging needed at this time Event likely vasovagal/cardiogenic Echo reviewed Would pursue cardiac work up especially in context of Afib (continue monitoring) Continue Coumadin, fall precautions needed Can continue optimization of hyponatremia For back pain, continue pain control, seems musculoskeletal Awaiting evaluation by Dr. escobar with relief in the past. Physical therapy recommended No further recommendations
[2017-08-13] MEDS: LIDOCAINE 5% TOPICAL PATCH TP SCH (10:45)
[2017-08-13] MEDS: POLYETHYLENE GLYCOL 3350 119 GM BTL PO SCH (11:08)
--- NOTE | 2017-08-13 12:20 | PN ---
Progress Note (short form) - Note Progress Note: Patient has terrible spasms mainly low back on the left side laterally not over her spine but new Xray Thoacic spine shows new compression T8 and ? old Compression T11. Patient struggles even to sit at bedside chair. With PT performance was a struggle also. Seen by Cardiology; will transfer to floor care. Na up to 129. ? RBC's in urine ; to repeat and order urine cytology. I have held coumadin for 2 days in case pain MD would do a procedure but I ordered 7.5 mg for tonite. Her normal dose is 2.5 / 5mg alternating. On Exam: Vital Signs Temp 97.7 F 08/13/17 09:12 Pulse 72 08/13/17 11:14 Resp 18 08/13/17 09:12 BP 130/66 08/13/17 09:12 Pulse Ox 95 08/13/17 11:14 Intake & Output 08/12/17 08/13/17 08/13/17 23:59 11:59 23:59 Intake Total 250 Balance 250 Intake: IV 08/11/2017 10 IVPB 0 Oral 240 Other: Voiding Method Bedpan Bedpan # Unmeasured Voids Void 1 1 Bowel Movement No Alert Tired due to lack of sleep Chest:Decreased breath sounds Tenderness ribs posterior left costal margin Ext: No edema Abnormal Lab Results 08/13/17 08/13/17 06:45 06:45 PT with INR 16.60 H INR 1.47 H Sodium 129 L Chloride 89 L BUN 19 H IMP: Acute back pain ? New T8 compression Fx Mild Hyponatremia Hypertension Chronic and Acute Pain LS disc surgery Primary Biliary Cirrhosis Plan: Await Pain MD F/U INR F/u Sodium Urinanalysis and Urine cytology PT ? Eventual SNF
[2017-08-13] MEDS ORDERED: WARFARIN NA 7.5 MG TABLET (FP) PO ONE (18:00)
--- NOTE | 2017-08-13 18:13 | CONSULT ---
Consult Consult Specialty:: pain medicine Referred by:: dr swanson - History of Present Illness Chief Complaint: back pain History of Present Illness: 86 year old woman with a history of severe mid back pain recent xrays show a possible acute t8 fx pain is located in the left side of the mid back. pain score 10/10 when standing and walking - Past Medical History Cardio/Vascular: Yes: HTN, Hyperlipdemia Gastrointestinal: Yes: GERD ...: No Rheumatology: Yes: Rheumatoid Arthritis - Past Surgical History Past Surgical History: Yes: Cataract Removal, Laminectomy Additional Surgical History: cervical spinal fusion, sinus surgery - Alcohol/Substance Use Hx Alcohol Use: No History of Substance Use: reports: None - Smoking History Smoking history: Former smoker Have you smoked in the past 12 months: No Aproximately how many cigarettes per day: 0 If you are a former smoker, when did you quit?: 50 years ago - Social History Usual Living Arrangement: Alone () ADL: Independent Occupation: Retired [employer]er History of Recent Travel: No Home Medications - Allergies Allergies/Adverse Reactions: Allergies Allergy/AdvReac Type Severity Reaction Status Date / Time No Known Allergies Allergy Verified 08/10/17 21:58 - Home Medications Home Medications: Ambulatory Orders Simvastatin [Zocor -] 20 mg PO HS 04/26/13 Nebivolol [Bystolic -] 10 mg PO DAILY #0 tab 04/28/13 Ibandronate Sodium [Boniva] 150 mg PO WEEKLY tablet 07/19/13 Gabapentin 300 mg PO BID 07/31/13 Calcium Citrate/Vitamin D3 [Citracal + D Caplet] 2 each PO BID tablet 09/26/13 Prednisone 5 mg PO DAILY #30 01/26/14 Pantoprazole Sodium [Protonix -] 40 mg PO DAILY 03/06/14 Sertraline HCl [Zoloft -] 50 mg PO HS 03/06/14 Amlodipine Besylate [Norvasc -] 2.5 mg PO ASDIR PRN 10/15/16 Methotrexate [Mexate -] 7 tab PO Q7D 10/15/16 Warfarin Sodium [Coumadin] 5 mg PO Q2D 10/16/16 Acetaminophen [Tylenol .Regular Strength -] 650 mg PO Q6H PRN #0 tablet Tramadol HCl [Ultram -] 50 mg PO Q8H PRN #0 tablet MDD 3 10/20/16 Warfarin Na [Coumadin -] 2.5 mg PO Q2D #0 tablet 10/20/16 Losartan Potassium [Cozaar -] 100 mg PO DAILY 08/09/17 Lidocaine 5% Patch [Lidoderm -] 2 patch TP DAILY PRN 08/11/17 Polyethylene Glycol 3350 [Miralax 119 gm Btl -] 17 gm PO BID PRN 08/11/17 Family Disease History - Family Disease History Family Disease History: Heart Disease: Mother ( age 97: h/o BCA in 80's. HTN ), Other: Father ( age 95: h/o CAD), Mother, Sister (1, healthy), Son (2, healthy) Other Family History: no family history of colorectal cancer or other GI malignancy Physical Exam Vital Signs: Vital Signs Temperature 98.6 F 08/13/17 14:00 Pulse Rate 76 08/13/17 14:00 Respiratory Rate 18 08/13/17 09:12 Blood Pressure 145/70 08/13/17 14:00 O2 Sat by Pulse Oximetry (%) 95 08/13/17 11:14 Musculoskeletal: Yes: Back Pain Labs: CBC, BMP 08/11/17 07:56 08/13/17 06:45 Assessment/Plan Mid back pain secondary to possible acute compression fracture 1. Dedicated ct scan thoracic spine non contrast 2. Bone scan (patient reports unwillingness to undergo mri) 3. Tylenol prn 4. please call me once bone scan and ct scan are done
[2017-08-13] MEDS: ONDANSETRON 4 MG/2 ML VIAL IVPUSH PRN (20:04)
[2017-08-13] MEDS: LIDOCAINE PATCH REMOVAL MC SCH (22:06)
[2017-08-13] MEDS: SENNOSIDES 8.6MG TABLET (FP) PO SCH (22:07)
[2017-08-13] MEDS: oxyCODONE HCL 5 MG TABLET PO PRN (23:54)
[2017-08-13] MEDS: ACETAMINOPHEN 325 MG TABLET (FP) PO PRN (23:55)
[2017-08-14 07:53] LABS: INR 2.01 (0.82-1.09); PROTHROMBIN TIME (PATIENT) 22.7 SEC (9.98-11.88)
[2017-08-14 08:16] LABS: ANION GAP 8 (8-16); CALCIUM 8.6 mg/dL (8.5-10.1); CO2 30 mmol/L (21-32); CREATININE 0.6 mg/dL (0.55-1.02); GLUCOSE,RANDOM 83 mg/dL (74-106)
[2017-08-14] MEDS: NEBIVOLOL 10 MG TABLET (FP) PO SCH (09:06)
[2017-08-14] MEDS: LIDOCAINE 5% TOPICAL PATCH TP SCH (09:07)
[2017-08-14] MEDS: LOSARTAN POTASSIUM 50 MG TABLET (FP) PO SCH (09:07)
[2017-08-14] MEDS: POLYETHYLENE GLYCOL 3350 119 GM BTL PO SCH (09:09)
--- NOTE | 2017-08-14 11:09 | PN ---
Progress Note, Physician Chief Complaint: Pt denies dyspnea, chest pain, or palpitations. Still with back pain. History of Present Illness: The patient is an 86 year old white woman brought via EMS, with a significant past medical history of chronic anemia (Iron Infusions twice a month), esophageal ulcer, IBS, paroxysmal AF, HTN (07/2017 ECHO: normal LVEF; severe MR and TR), and HLD, who presents to the emergency department after a syncopal episode today. EMS notes that the patient was on a camode urinating when she syncopized and fell forward. She remained unresponsive for 2 minutes before becoming alert and oriented x4. She currently complains of back spasms which range from mild to moderate. It is noted that the patient was in the ED yesterday for back spasms as well, for which she was discharged after improvement of symptoms. This counts as day 4 of her back spasms. She also complaints of frequency associated with her chief complaint. The patient denies chest pain, shortness of breath, headache and dizziness. Denies fever, chills, nausea, vomit, diarrhea and constipation. Denies dysuria, urgency and hematuria. Allergies: None Past surgical history: Spinal fusion, laminectomy, left carpal tunnel Social history: Former smoker. No alcohol or drug use reported - Current Medication List Current Medications: Active Medications Acetaminophen (Tylenol -) 325 mg PO Q4H PRN PRN Reason: PAIN Stop: 08/14/17 15:03 Last Admin: 08/13/17 23:55 Dose: 325 mg Albuterol Sulfate (Ventolin 0.083% Nebulizer Soln -) 1 amp NEB Q6H PRN PRN Reason: SHORT OF BREATH/WHEEZING Lidocaine (Lidoderm Patch -) 2 patch TP DAILY [facility] Last Admin: 08/14/17 09:07 Dose: 2 patch Losartan Potassium (Cozaar -) 50 mg PO DAILY [facility] Last Admin: 08/14/17 09:07 Dose: 50 mg Miscellaneous (Lidoderm Patch Removal) 1 each MC DAILY@2200 [facility] Last Admin: 08/13/17 22:06 Dose: 1 each Morphine Sulfate (Morphine Injection -) 2 mg IVPUSH Q4H PRN PRN Reason: PAIN Last Admin: 08/12/17 08:07 Dose: 2 mg Nebivolol (Bystolic -) 10 mg PO DAILY [facility] Last Admin: 08/14/17 09:06 Dose: 10 mg Ondansetron HCl (Zofran Injection) 4 mg IVPUSH Q6H PRN PRN Reason: NAUSEA AND/OR VOMITING Last Admin: 08/13/17 20:04 Dose: 4 mg Oxycodone HCl (Roxicodone -) 5 mg PO Q4H PRN PRN Reason: PAIN Last Admin: 08/13/17 23:54 Dose: 5 mg Polyethylene Glycol (Miralax (For Daily Use) -) 17 gm PO DAILY [facility] Last Admin: 08/14/17 09:09 Dose: 17 grams Senna (Senna -) 2 tab PO HS [facility] Last Admin: 08/13/17 22:07 Dose: 2 tab Warfarin Sodium (Coumadin -) 2.5 mg PO DAILY@1800 [facility] Last Admin: 08/12/17 17:10 Dose: 2.5 mg - Objective Vital Signs: Vital Signs Temperature 97.5 F L 08/14/17 07:22 Pulse Rate 65 08/14/17 07:22 Respiratory Rate 20 08/14/17 07:22 Blood Pressure 128/57 08/14/17 07:22 O2 Sat by Pulse Oximetry (%) 96 08/14/17 07:14 Constitutional: Yes: Anxious Eyes: Yes: WNL HENT: Yes: WNL Neck: Yes: WNL Cardiovascular: Yes: Regular Rate and Rhythm, Murmur (2/6 systolic murmur, LSB-- >apex), S1, S2 Respiratory: Yes: WNL Gastrointestinal: Yes: Soft ...Rectal Exam: Yes: Deferred Genitourinary: No: Anuria Breast(s): Yes: WNL Musculoskeletal: Yes: Back Pain, Joint Stiffness, Muscle Weakness Extremities: Yes: WNL Edema: No Peripheral Pulses WNL: Yes Integumentary: Yes: WNL Neurological: Yes: Weakness Labs: CBC, BMP 08/11/17 07:56 08/14/17 05:35 INR, PTT INR 2.01 (0.82-1.09) H D 08/14/17 05:35 - ....Imaging Other: Image Reviewed (telemetry: NSR) Problem List - Problems (1) Dehydration Code(s): E86.0 - DEHYDRATION (2) Elevated INR Assessment/Plan: INR 2.01 today; continue warfarin. Code(s): R79.1 - ABNORMAL COAGULATION PROFILE (3) Hyponatremia Assessment/Plan: Na 126-->130 Code(s): E87.1 - HYPO-OSMOLALITY AND HYPONATREMIA (4) Syncope and collapse Assessment/Plan: Sycnope after urination. orthostatic VS checks. Avoid dehydrtion. ECHO: normal LVEF; severe MR and TR. Remains in severe pain from back spasms. F/u regarding possibility of biliary stricture noted on CT chest. Code(s): R55 - SYNCOPE AND COLLAPSE (5) GERD (gastroesophageal reflux disease) Code(s): K21.9 - GASTRO-ESOPHAGEAL REFLUX DISEASE WITHOUT ESOPHAGITIS (6) HLD (hyperlipidemia) Code(s): E78.5 - HYPERLIPIDEMIA, UNSPECIFIED (7) HTN (hypertension) Assessment/Plan: on Bystolic and losartan; BP better-controlled. Code(s): I10 - ESSENTIAL (PRIMARY) HYPERTENSION (8) Back spasm Assessment/Plan: severe, unrelenting pain. Pain management in progress; on morphine, and Lidocaine patch; has been on Toradol. For CT spine. Code(s): M62.830 - MUSCLE SPASM OF BACK (9) Paroxysmal atrial fibrillation Assessment/Plan: on Bystolic for HR and BP. On wafrarin; keep INR 2-3. Code(s): I48.0 - PAROXYSMAL ATRIAL FIBRILLATION
--- NOTE | 2017-08-14 14:56 | PN ---
Progress Note, Physician Chief Complaint: no new complaints still c/o back pain and sever spasm. History of Present Illness: 86 yrs old man with H/O Afib on AC, Chronic anemia, GERD esophageal ulcer admitted with syncope while micturating with new T8 compression fracture intially coumadin was held resume after cardiology wevaluation. - Current Medication List Current Medications: Active Medications Acetaminophen (Tylenol -) 325 mg PO Q4H PRN PRN Reason: PAIN Stop: 08/14/17 15:03 Last Admin: 08/13/17 23:55 Dose: 325 mg Albuterol Sulfate (Ventolin 0.083% Nebulizer Soln -) 1 amp NEB Q6H PRN PRN Reason: SHORT OF BREATH/WHEEZING Lidocaine (Lidoderm Patch -) 2 patch TP DAILY [facility] Last Admin: 08/14/17 09:07 Dose: 2 patch Losartan Potassium (Cozaar -) 50 mg PO DAILY [facility] Last Admin: 08/14/17 09:07 Dose: 50 mg Miscellaneous (Lidoderm Patch Removal) 1 each MC DAILY@2200 [facility] Last Admin: 08/13/17 22:06 Dose: 1 each Morphine Sulfate (Morphine Injection -) 2 mg IVPUSH Q4H PRN PRN Reason: PAIN Last Admin: 08/12/17 08:07 Dose: 2 mg Nebivolol (Bystolic -) 10 mg PO DAILY [facility] Last Admin: 08/14/17 09:06 Dose: 10 mg Ondansetron HCl (Zofran Injection) 4 mg IVPUSH Q6H PRN PRN Reason: NAUSEA AND/OR VOMITING Last Admin: 08/13/17 20:04 Dose: 4 mg Oxycodone HCl (Roxicodone -) 5 mg PO Q4H PRN PRN Reason: PAIN Last Admin: 08/13/17 23:54 Dose: 5 mg Polyethylene Glycol (Miralax (For Daily Use) -) 17 gm PO DAILY [facility] Last Admin: 08/14/17 09:09 Dose: 17 grams Senna (Senna -) 2 tab PO HS [facility] Last Admin: 08/13/17 22:07 Dose: 2 tab Warfarin Sodium (Coumadin -) 2.5 mg PO DAILY@1800 [facility] Last Admin: 08/12/17 17:10 Dose: 2.5 mg - Objective Vital Signs: Vital Signs Temperature 98 F 08/14/17 14:00 Pulse Rate 77 08/14/17 14:00 Respiratory Rate 20 08/14/17 14:00 Blood Pressure 139/63 08/14/17 14:00 O2 Sat by Pulse Oximetry (%) 96 08/14/17 07:14 HEENT: MM Constitutional: Yes: Anxious Eyes: Yes: Conjunctiva Clear, EOM Intact HENT: Yes: WNL, Atraumatic Neck: Yes: WNL, Supple, Trachea Midline Cardiovascular: Yes: WNL, Regular Rate and Rhythm, S1, S2. No: Bruit, JVD, Murmur, Rub Respiratory: Yes: Regular, CTA Bilaterally Gastrointestinal: Yes: Normal Bowel Sounds, Soft. No: Tenderness, Rebound Musculoskeletal: Yes: Back Pain, Muscle Pain Edema: No Peripheral Pulses WNL: Yes Peripheral Pulses: Left Doralis Pedis: 2+, Right Dorsalis Pedis: 2+ Neurological: Yes: WNL, Alert, Oriented ...Motor Strength: WNL, LUE, LLE, RUE, RLE Labs: CBC, BMP 08/11/17 07:56 08/14/17 05:35 INR, PTT INR 2.01 (0.82-1.09) H D 08/14/17 05:35 Problem List - Problems (1) Syncope and collapse Assessment/Plan: most likely due to vasovagal while straining on the commode evaluated by cardiology consult will f/u cardiology recommendations.No indication for further w/u Code(s): R55 - SYNCOPE AND COLLAPSE (2) Paroxysmal atrial fibrillation Assessment/Plan: rate controlled on Coumdin INR is therapeutic F/U INR in am Code(s): I48.0 - PAROXYSMAL ATRIAL FIBRILLATION (3) Back spasm Assessment/Plan: due to compression fracture Ct shows minmal compression cant explain sever pain and back spasm, cont pain, meds add Valium 5 mg TID for back spasm,, F/U Pain consult recommendations. Code(s): M62.830 - MUSCLE SPASM OF BACK (4) HTN (hypertension) Assessment/Plan: HTN well controlled cont home meds Code(s): I10 - ESSENTIAL (PRIMARY) HYPERTENSION (5) GERD (gastroesophageal reflux disease) Assessment/Plan: on PPI Code(s): K21.9 - GASTRO-ESOPHAGEAL REFLUX DISEASE WITHOUT ESOPHAGITIS (6) HLD (hyperlipidemia) Code(s): E78.5 - HYPERLIPIDEMIA, UNSPECIFIED
[2017-08-14] MEDS: ACETAMINOPHEN 325 MG TABLET (FP) PO PRN ×2 (16:11→23:58)
[2017-08-14] MEDS: WARFARIN NA 2.5 MG TABLET (FP) PO SCH ×2 (17:08→18:17)
[2017-08-14] MEDS ORDERED: diazePAM 5 MG TABLET PO ONE (21:00)
[2017-08-14] MEDS: LIDOCAINE PATCH REMOVAL MC SCH (21:26)
[2017-08-14] MEDS: SENNOSIDES 8.6MG TABLET (FP) PO SCH (21:26)
[2017-08-15 06:48] LABS: INR 2.96 (0.82-1.09); PROTHROMBIN TIME (PATIENT) 33.5 SEC (9.98-11.88)
[2017-08-15 06:52] LABS: BASOPHIL 1.4 % (0-2.0); EOSINOPHIL 1.8 % (0-4.5); MCHC 32.3 g/dl (32.0-36.0); MEAN CELL VOLUME 83.5 fl (80-96); MEAN PLT VOLUME 7.3 fl (7.5-11.1); NEUTROPHILS 54.2 % (42.8-82.8); PLATELET COUNT 313 K/MM3 (134-434); RDW 23.3 % (11.6-15.6); WHITE BLOOD COUNT 7.6 K/mm3 (4.0-10.0)
[2017-08-15 07:52] LABS: ANION GAP 11 (8-16); CO2 28 mmol/L (21-32); CREATININE 0.6 mg/dL (0.55-1.02); GLUCOSE,RANDOM 84 mg/dL (74-106)
[2017-08-15] MEDS: NEBIVOLOL 10 MG TABLET (FP) PO SCH (09:22)
[2017-08-15] MEDS: LIDOCAINE 5% TOPICAL PATCH TP SCH (09:22)
[2017-08-15] MEDS: LOSARTAN POTASSIUM 50 MG TABLET (FP) PO SCH (09:23)
[2017-08-15] MEDS: POLYETHYLENE GLYCOL 3350 119 GM BTL PO SCH (09:23)
[2017-08-15 09:54] LABS: ANISOCYTOSIS 3+; HYPOCHROMIA 1+; MICROCYTOSIS 2+
[2017-08-15] MEDS: morphine CARPU-JECT 2 MG/1 ML DISP.SYRIN IVPUSH PRN ×2 (10:41→14:45)
--- NOTE | 2017-08-15 11:57 | PN ---
Progress Note, Physician Chief Complaint: no new complaints still c/o back pain and sever spasm. History of Present Illness: 86 yrs old man with H/O Afib on AC, Chronic anemia, GERD esophageal ulcer admitted with syncope while straining on the commode, with new T8 compression fracture, c/o sever pain. - Current Medication List Current Medications: Active Medications Acetaminophen (Tylenol -) 650 mg PO Q6H PRN PRN Reason: FEVER OR PAIN Last Admin: 08/14/17 23:58 Dose: 650 mg Albuterol Sulfate (Ventolin 0.083% Nebulizer Soln -) 1 amp NEB Q6H PRN PRN Reason: SHORT OF BREATH/WHEEZING Lidocaine (Lidoderm Patch -) 2 patch TP DAILY [facility] Last Admin: 08/15/17 09:22 Dose: 2 patch Losartan Potassium (Cozaar -) 50 mg PO DAILY [facility] Last Admin: 08/15/17 09:23 Dose: 50 mg Miscellaneous (Lidoderm Patch Removal) 1 each MC DAILY@2200 [facility] Last Admin: 08/14/17 21:26 Dose: 1 each Morphine Sulfate (Morphine Injection -) 2 mg IVPUSH Q4H PRN PRN Reason: PAIN Last Admin: 08/15/17 10:41 Dose: 2 mg Nebivolol (Bystolic -) 10 mg PO DAILY [facility] Last Admin: 08/15/17 09:22 Dose: 10 mg Ondansetron HCl (Zofran Injection) 4 mg IVPUSH Q6H PRN PRN Reason: NAUSEA AND/OR VOMITING Last Admin: 08/13/17 20:04 Dose: 4 mg Oxycodone HCl (Roxicodone -) 5 mg PO Q4H PRN PRN Reason: PAIN Last Admin: 08/13/17 23:54 Dose: 5 mg Polyethylene Glycol (Miralax (For Daily Use) -) 17 gm PO DAILY [facility] Last Admin: 08/15/17 09:23 Dose: 17 grams Senna (Senna -) 2 tab PO HS [facility] Last Admin: 08/14/17 21:26 Dose: 2 tab Warfarin Sodium (Coumadin -) 2.5 mg PO DAILY@1800 [facility] Last Admin: 08/14/17 18:17 Dose: 2.5 mg - Objective Vital Signs: Vital Signs Temperature 98.2 F 08/15/17 09:00 Pulse Rate 70 08/15/17 09:00 Respiratory Rate 20 08/15/17 09:00 Blood Pressure 136/72 08/15/17 09:00 O2 Sat by Pulse Oximetry (%) 96 08/15/17 09:00 Constitutional: Yes: Anxious Eyes: Yes: Conjunctiva Clear, EOM Intact HENT: Yes: WNL, Atraumatic Neck: Yes: WNL, Supple, Trachea Midline Cardiovascular: Yes: WNL, Regular Rate and Rhythm, S1, S2. No: Bruit, JVD, Murmur, Rub Respiratory: Yes: Regular, CTA Bilaterally Gastrointestinal: Yes: Normal Bowel Sounds, Soft. No: Tenderness, Rebound Musculoskeletal: Yes: Back Pain, Muscle Pain Edema: No Peripheral Pulses WNL: Yes Peripheral Pulses: Left Doralis Pedis: 2+, Right Dorsalis Pedis: 2+ Neurological: Yes: WNL, Alert, Oriented Motor Strength: WNL, LUE, LLE, RUE, RLE Labs: CBC, BMP 08/15/17 05:35 08/15/17 05:35 INR, PTT INR 2.96 (0.82-1.09) H D 08/15/17 05:35 Problem List - Problems (1) Syncope and collapse Assessment/Plan: most likely due to vasovagal while straining on the commode evaluated by cardiology consult will f/u cardiology recommendations.No indication for further w/u Code(s): R55 - SYNCOPE AND COLLAPSE (2) Paroxysmal atrial fibrillation Assessment/Plan: rate controlled on Coumdin INR is therapeutic , today coumdin 2.0 mg F/U INR in am Code(s): I48.0 - PAROXYSMAL ATRIAL FIBRILLATION (3) Back spasm Assessment/Plan: due to compression fracture Ct shows minmal compression cant explain sever pain and back spasm, cont pain, meds add Valium 5 mg TID for back spasm,, F/U Pain consult recommendations. Code(s): M62.830 - MUSCLE SPASM OF BACK (4) HTN (hypertension) Assessment/Plan: HTN well controlled cont home meds Code(s): I10 - ESSENTIAL (PRIMARY) HYPERTENSION (5) GERD (gastroesophageal reflux disease) Assessment/Plan: on PPI Code(s): K21.9 - GASTRO-ESOPHAGEAL REFLUX DISEASE WITHOUT ESOPHAGITIS (6) Hyperkalemia Assessment/Plan: Mild F/U BMP in am Kayxelate X1 Code(s): E87.5 - HYPERKALEMIA
[2017-08-15] MEDS ORDERED: WARFARIN NA 2 MG TABLET (UD) PO SCH (11:58)
[2017-08-15] MEDS ORDERED: SODIUM POLYSTYRENE SULFONATE 15 GM/60 ML BOTTLE PO ONE (16:38)
[2017-08-15] MEDS: diazePAM 2 MG TABLET PO PRN (17:45)
[2017-08-15] MEDS: LIDOCAINE PATCH REMOVAL MC SCH (21:37)
[2017-08-15] MEDS: ACETAMINOPHEN 325 MG TABLET (FP) PO PRN (21:38)
[2017-08-15] MEDS: SENNOSIDES 8.6MG TABLET (FP) PO SCH (21:38)
[2017-08-15] MEDS: oxyCODONE HCL 5 MG TABLET PO PRN (23:00)
[2017-08-16] MEDS: oxyCODONE HCL 5 MG TABLET PO PRN ×4 (04:31→21:26)
[2017-08-16] MEDS: ACETAMINOPHEN 325 MG TABLET (FP) PO PRN ×2 (04:32→21:26)
--- NOTE | 2017-08-16 05:40 | PN ---
Progress Note, Physician Chief Complaint: Pt still has strong back pain; she is aware she has a compression fracture of T10. History of Present Illness: The patient is an 86 year old white woman brought via EMS, with a significant past medical history of chronic anemia (Iron Infusions twice a month), chronic back pain (s/p thoraic spine fusion surgery), esophageal ulcer, IBS, paroxysmal AF, HTN (07/2017 ECHO: normal LVEF; severe MR and TR), and HLD, who presents to the emergency department after a syncopal episode today. EMS notes that the patient was on a camode urinating when she syncopized and fell forward. She remained unresponsive for 2 minutes before becoming alert and oriented x4. She currently complains of back spasms which range from mild to moderate. It is noted that the patient was in the ED yesterday for back spasms as well, for which she was discharged after improvement of symptoms. This counts as day 4 of her back spasms. She also complaints of frequency associated with her chief complaint. The patient denies chest pain, shortness of breath, headache and dizziness. Denies fever, chills, nausea, vomit, diarrhea and constipation. Denies dysuria, urgency and hematuria. Allergies: None Past surgical history: Spinal fusion, laminectomy, left carpal tunnel Social history: Former smoker. No alcohol or drug use reported - Current Medication List Current Medications: Active Medications Acetaminophen (Tylenol -) 650 mg PO Q6H PRN PRN Reason: FEVER OR PAIN Last Admin: 08/16/17 04:32 Dose: 650 mg Diazepam (Valium -) 2 mg PO Q8H PRN Last Admin: 08/15/17 17:45 Dose: 2 mg Lidocaine (Lidoderm Patch -) 2 patch TP DAILY [facility] Last Admin: 08/15/17 09:22 Dose: 2 patch Losartan Potassium (Cozaar -) 50 mg PO DAILY [facility] Last Admin: 08/15/17 09:23 Dose: 50 mg Miscellaneous (Lidoderm Patch Removal) 1 each MC DAILY@2200 [facility] Last Admin: 08/15/17 21:37 Dose: 1 each Morphine Sulfate (Morphine Injection -) 2 mg IVPUSH Q4H PRN PRN Reason: PAIN Last Admin: 08/15/17 14:45 Dose: 2 mg Nebivolol (Bystolic -) 10 mg PO DAILY [facility] Last Admin: 08/15/17 09:22 Dose: 10 mg Ondansetron HCl (Zofran Injection) 4 mg IVPUSH Q6H PRN PRN Reason: NAUSEA AND/OR VOMITING Last Admin: 08/13/17 20:04 Dose: 4 mg Oxycodone HCl (Roxicodone -) 5 mg PO Q4H PRN PRN Reason: PAIN Last Admin: 08/16/17 04:31 Dose: 5 mg Polyethylene Glycol (Miralax (For Daily Use) -) 17 gm PO DAILY [facility] Last Admin: 08/15/17 09:23 Dose: 17 grams Senna (Senna -) 2 tab PO HS [facility] Last Admin: 08/15/17 21:38 Dose: Not Given Warfarin Sodium (Coumadin -) 2 mg PO DAILY@1800 [facility] Last Admin: 08/15/17 17:21 Dose: 2 mg - Objective Vital Signs: Vital Signs Temperature 97.8 F 08/15/17 22:00 Pulse Rate 68 08/15/17 22:00 Respiratory Rate 20 08/15/17 22:00 Blood Pressure 134/72 08/15/17 22:00 O2 Sat by Pulse Oximetry (%) 98 08/15/17 21:00 Constitutional: Yes: Anxious Eyes: Yes: WNL HENT: Yes: WNL Neck: Yes: WNL Cardiovascular: Yes: Regular Rate and Rhythm, S1, S2 Respiratory: Yes: WNL Gastrointestinal: Yes: Soft ...Rectal Exam: Yes: Deferred Genitourinary: Yes: Anuria Breast(s): Yes: WNL Musculoskeletal: Yes: Back Pain, Muscle Weakness Extremities: Yes: WNL Edema: No Peripheral Pulses WNL: Yes Integumentary: Yes: WNL Neurological: Yes: Weakness Psychiatric: Yes: Other (anxiety (principally from chronic back pain)) Labs: CBC, BMP 08/15/17 05:35 08/15/17 05:35 INR, PTT INR 2.96 (0.82-1.09) H D 08/15/17 05:35 Problem List - Problems (1) Dehydration Code(s): E86.0 - DEHYDRATION (2) Elevated INR Code(s): R79.1 - ABNORMAL COAGULATION PROFILE (3) Hyponatremia Code(s): E87.1 - HYPO-OSMOLALITY AND HYPONATREMIA (4) Syncope and collapse Code(s): R55 - SYNCOPE AND COLLAPSE (5) GERD (gastroesophageal reflux disease) Code(s): K21.9 - GASTRO-ESOPHAGEAL REFLUX DISEASE WITHOUT ESOPHAGITIS (6) HLD (hyperlipidemia) Code(s): E78.5 - HYPERLIPIDEMIA, UNSPECIFIED (7) HTN (hypertension) Code(s): I10 - ESSENTIAL (PRIMARY) HYPERTENSION (8) Back spasm Code(s): M62.830 - MUSCLE SPASM OF BACK (9) Paroxysmal atrial fibrillation Code(s): I48.0 - PAROXYSMAL ATRIAL FIBRILLATION
[2017-08-16 07:02] LABS: BASOPHIL 0.5 % (0-2.0); EOSINOPHIL 1.4 % (0-4.5); MCHC 32.4 g/dl (32.0-36.0); MEAN CELL VOLUME 83.4 fl (80-96); MEAN PLT VOLUME 7.2 fl (7.5-11.1); NEUTROPHILS 49.3 % (42.8-82.8); PLATELET COUNT 358 K/MM3 (134-434); RDW 23.3 % (11.6-15.6); WHITE BLOOD COUNT 8.7 K/mm3 (4.0-10.0)
[2017-08-16 07:11] LABS: ANION GAP 11 (8-16); CALCIUM 8.8 mg/dL (8.5-10.1); CO2 28 mmol/L (21-32); CREATININE 0.6 mg/dL (0.55-1.02); GLUCOSE,RANDOM 95 mg/dL (74-106)
[2017-08-16 07:13] LABS: INR 3.04 (0.82-1.09); PROTHROMBIN TIME (PATIENT) 34.4 SEC (9.98-11.88)
--- NOTE | 2017-08-16 09:49 | PN ---
Progress Note (short form) - Note Progress Note: Patient currently in nuclear medicine department to determine if T11 and T8 compressions are acute or not. Na up to 132; INR 3.02; to hold coumadin dose today. Vital Signs Temp 97.4 F L 08/16/17 08:03 Pulse 73 08/16/17 08:03 Resp 20 08/16/17 08:05 BP 123/64 08/16/17 08:03 Pulse Ox 98 08/15/17 21:00 Intake & Output 08/15/17 08/15/17 08/16/17 11:59 23:59 11:59 Intake Total 120 260 200 Balance 120 260 200 Intake: IV 60 rfa 20 08/11/2017 60 Oral 120 200 200 Other: Voiding Method Bedside Commode Bedside Commode Bedside Commode # Unmeasured Voids Void 2 2 Bowel Movement No No Abnormal Lab Results 08/15/17 08/16/17 08/16/17 05:35 06:25 06:25 RDW 23.3 H 23.3 H MPV 7.3 L 7.2 L Monocytes % 14.0 H D 11.9 H PT with INR 34.40 H INR 3.04 H Sodium Chloride 08/16/17 06:25 RDW MPV Monocytes % PT with INR INR Sodium 132 L Chloride 93 L IMP: Acute Back and rib pain T11 and T8 compression fractures ? acute Hx. DVT Cervical and LS Disc Surgery Hypertension Hyponatremia Primary Biliary Cirrhosis
[2017-08-16] MEDS: LOSARTAN POTASSIUM 50 MG TABLET (FP) PO SCH (10:13)
[2017-08-16] MEDS: PREGABALIN 25 MG CAPSULE PO SCH ×2 (10:13→21:24)
[2017-08-16] MEDS: NEBIVOLOL 10 MG TABLET (FP) PO SCH (10:13)
--- NOTE | 2017-08-16 10:13 | PN ---
Progress Note (short form) - Note Progress Note: Neurology History of Present Illness The patient is a 86 year old female brought via EMS, with a significant past medical history of chronic anemia (Iron Infusions twice a month), ulcerate esophagous, IBS, HTN and HLD, who presents to the emergency department after a syncopal episode. EMS noted that the patient was on a camode urinating when she syncopized and fell forward. Reportedly was unresponsive then becoming alert and oriented x4. She currently complains of back spasms which range from mild to moderate. Her son was at the bedside and confirmed history. She has prior syncope but last one was 3 years ago. She completed CT head which did not show acute changes. There was chronic L frontal sinus disease. CT thorax and chest compelted and did not show aneurysm or dissection, large hernia noted, ? biliary stricturing. Neurologic exam was nonfocal and patient mental status at baseline. Son reported she had injection in her back by Dr. escobar with relief in the past. He ordered CT T spine which was reviewed and showed compression fracture at T11, mild compression fracture noted at T8 as well. Active Medications Acetaminophen (Tylenol -) 650 mg PO Q6H PRN PRN Reason: FEVER OR PAIN Last Admin: 08/16/17 04:32 Dose: 650 mg Diazepam (Valium -) 2 mg PO Q8H PRN Last Admin: 08/15/17 17:45 Dose: 2 mg Lidocaine (Lidoderm Patch -) 2 patch TP DAILY [facility] Last Admin: 08/15/17 09:22 Dose: 2 patch Losartan Potassium (Cozaar -) 50 mg PO DAILY [facility] Last Admin: 08/15/17 09:23 Dose: 50 mg Miscellaneous (Lidoderm Patch Removal) 1 each MC DAILY@2200 [facility] Last Admin: 08/15/17 21:37 Dose: 1 each Morphine Sulfate (Morphine Injection -) 2 mg IVPUSH Q4H PRN PRN Reason: PAIN Last Admin: 08/15/17 14:45 Dose: 2 mg Nebivolol (Bystolic -) 10 mg PO DAILY [facility] Last Admin: 08/15/17 09:22 Dose: 10 mg Ondansetron HCl (Zofran Injection) 4 mg IVPUSH Q6H PRN PRN Reason: NAUSEA AND/OR VOMITING Last Admin: 08/13/17 20:04 Dose: 4 mg Oxycodone HCl (Roxicodone -) 10 mg PO Q4H PRN PRN Reason: PAIN Polyethylene Glycol (Miralax (For Daily Use) -) 17 gm PO BID [facility] Pregabalin (Lyrica -) 25 mg PO BID [facility] Senna (Senna -) 2 tab PO HS [facility] Last Admin: 08/15/17 21:38 Dose: Not Given Warfarin Sodium (Coumadin -) 2 mg PO DAILY@1800 [facility] Last Admin: 08/15/17 17:21 Dose: 2 mg *Physical Exam Vital Signs Period Temp Pulse Resp BP Sys/Ying Pulse Ox Last 24 Hr 97.4 F-98.3 F 67-76 20-20 113-134/58-72 98 GENERAL: Awake, alert, and fully oriented, in no acute distress HEAD: No signs of trauma, normocephalic, atraumatic EYES: PERRLA, EOMI, sclera anicteric, conjunctiva clear ENT: Auricles normal inspection, hearing grossly normal, nares patent, oropharynx clear without exudates. Moist mucosa NECK: Normal ROM, supple, no lymphadenopathy, JVD, or masses LUNGS: No distress, speaks full sentences, clear to auscultation bilaterally HEART: Regular rate and rhythm, normal S1 and S2, no murmurs, rubs or gallops, peripheral pulses normal and equal bilaterally. ABDOMEN: Soft, nontender, normoactive bowel sounds. No guarding, no rebound. No masses EXTREMITIES : Normal inspection, Normal range of motion, no edema. No clubbing or cyanosis. NEUROLOGICAL: Cranial nerves II through XII grossly intact. Normal speech, no focal sensorimotor deficits, finger to nose normal, gait was deferred CBCD WBC 8.7 K/mm3 (4.0-10.0) 08/16/17 06:25 RBC 5.01 M/mm3 (3.60-5.2) 08/16/17 06:25 Hgb 13.5 GM/dL (10.7-15.3) 08/16/17 06:25 Hct 41.8 % (32.4-45.2) 08/16/17 06:25 MCV 83.4 fl (80-96) 08/16/17 06:25 MCHC 32.4 g/dl (32.0-36.0) 08/16/17 06:25 RDW 23.3 % (11.6-15.6) H 08/16/17 06:25 Plt Count 358 K/MM3 (134-434) 08/16/17 06:25 MPV 7.2 fl (7.5-11.1) L 08/16/17 06:25 CMP Sodium 132 mmol/L (136-145) L 08/16/17 06:25 Potassium 4.6 mmol/L (3.5-5.1) 08/16/17 06:25 Chloride 93 mmol/L (98-107) L 08/16/17 06:25 Carbon Dioxide 28 mmol/L (21-32) 08/16/17 06:25 Anion Gap 11 (8-16) 08/16/17 06:25 BUN 15 mg/dL (7-18) 08/16/17 06:25 Creatinine 0.6 mg/dL (0.55-1.02) 08/16/17 06:25 Creat Clearance w eGFR > 60 (>60) 08/10/17 23:27 Calcium 8.8 mg/dL (8.5-10.1) 08/16/17 06:25 Total Bilirubin 0.6 mg/dL (0.2-1.0) D 08/10/17 23:27 AST 25 U/L (15-37) D 08/10/17 23:27 ALT 31 U/L (12-78) D 08/10/17 23:27 Alkaline Phosphatase 84 U/L (45-117) 08/10/17 23:27 Total Protein 6.6 g/dl (6.4-8.2) 08/10/17 23:27 Albumin 3.8 g/dl (3.4-5.0) 08/10/17 23:27 - RADIOLOGY CT head and CT chest/thorax reviewed CT T spine reviewed Plan 86 year old female brought via EMS, with a significant past medical history of chronic anemia (Iron Infusions twice a month), ulcerate esophagous, IBS, HTN and HLD, who presents to the emergency department after a syncopal episode. EMS noted that the patient was on a camode urinating when she syncopized and fell forward. CT head which did not show acute changes. CT thorax and chest completed and reviewed as well (did not show aneurysm or dissection, large hernia noted, ? biliary stricturing). CT T spine with compression fx as noted above Neurologic exam was nonfocal and patient mental status at baseline. Dr. Escobar to follow up, had also recommended bone scan Continue Coumadin, fall precautions needed Can continue optimization of hyponatremia For back pain, continue pain control, will defer to Dr. Escobar regarding intervention Physical therapy recommended No further recommendations
[2017-08-16] MEDS: LIDOCAINE 5% TOPICAL PATCH TP SCH (11:09)
[2017-08-16] MEDS: POLYETHYLENE GLYCOL 3350 119 GM BTL PO SCH ×2 (12:02→21:25)
--- NOTE | 2017-08-16 12:50 | PN ---
Progress Note, Physician History of Present Illness: The patient is a 86 year old female brought via EMS, with a significant past medical history of chronic anemia (Iron Infusions twice a month), ulcerate esophagous, IBS, HTN and HLD, who presents to the emergency department after a syncopal episode today. EMS notes that the patient was on a camode urinating when she syncopized and fell forward. She remained unresponsive for 2 minutes before becoming alert and oriented x4. She currently complains of back spasms which range from mild to moderate. It is noted that the patient was in the ED yesterday for back spasms as well, for which she was discharged after improvement of symptoms. This counts as day 4 of her back spasms. She also complaints of frequency associated with her chief complaint. The patient denies chest pain, shortness of breath, headache and dizziness. Denies fever, chills, nausea, vomit, diarrhea and constipation. Denies dysuria, urgency and hematuria. Allergies: None Past surgical history: Spinal fusion, laminectomy, left carpal tunnel Social history: Former smoker. No alcohol or drug use reported - Current Medication List Current Medications: Active Medications Acetaminophen (Tylenol -) 650 mg PO Q6H PRN PRN Reason: FEVER OR PAIN Last Admin: 08/16/17 04:32 Dose: 650 mg Diazepam (Valium -) 2 mg PO Q8H PRN Last Admin: 08/15/17 17:45 Dose: 2 mg Lidocaine (Lidoderm Patch -) 2 patch TP DAILY [facility] [place] Last Admin: 08/16/17 11:09 Dose: Not Given Losartan Potassium (Cozaar -) 50 mg PO DAILY [facility] Last Admin: 08/16/17 10:13 Dose: 50 mg Miscellaneous (Lidoderm Patch Removal) 1 each MC DAILY@2200 [facility] [place] Last Admin: 08/15/17 21:37 Dose: 1 each Morphine Sulfate (Morphine Injection -) 2 mg IVPUSH Q4H PRN PRN Reason: PAIN Last Admin: 08/15/17 14:45 Dose: 2 mg Nebivolol (Bystolic -) 10 mg PO DAILY [facility] Last Admin: 08/16/17 10:13 Dose: 10 mg Ondansetron HCl (Zofran Injection) 4 mg IVPUSH Q6H PRN PRN Reason: NAUSEA AND/OR VOMITING Last Admin: 08/13/17 20:04 Dose: 4 mg Oxycodone HCl (Roxicodone -) 10 mg PO Q4H PRN PRN Reason: PAIN Polyethylene Glycol (Miralax (For Daily Use) -) 17 gm PO BID [facility] Pregabalin (Lyrica -) 25 mg PO BID [facility] Last Admin: 08/16/17 10:13 Dose: 25 mg Senna (Senna -) 2 tab PO HS [facility] [place] Last Admin: 08/15/17 21:38 Dose: Not Given Warfarin Sodium (Coumadin -) 2 mg PO DAILY@1800 [facility] Last Admin: 08/15/17 17:21 Dose: 2 mg - Objective Vital Signs: Vital Signs Temperature 97.4 F L 08/16/17 08:03 Pulse Rate 73 08/16/17 08:03 Respiratory Rate 20 08/16/17 08:05 Blood Pressure 123/64 08/16/17 08:03 O2 Sat by Pulse Oximetry (%) 98 08/15/17 21:00 Eyes: Yes: WNL, Conjunctiva Clear, EOM Intact HENT: Yes: WNL, Atraumatic, Normocephalic Neck: Yes: WNL, Supple, Trachea Midline Cardiovascular: Yes: WNL, Regular Rate and Rhythm Respiratory: Yes: WNL, Regular, CTA Bilaterally Gastrointestinal: Yes: WNL, Normal Bowel Sounds Genitourinary: Yes: WNL Musculoskeletal: Yes: WNL Extremities: Yes: WNL Edema: No Integumentary: Yes: WNL Neurological: Yes: WNL, Alert, Oriented ...Motor Strength: WNL Psychiatric: Yes: WNL Labs: CBC, BMP 08/16/17 06:25 08/16/17 06:25 INR, PTT INR 3.04 (0.82-1.09) H 08/16/17 06:25 Assessment/Plan - Problems (1) Dehydration Code(s): E86.0 - DEHYDRATION (2) Elevated INR Assessment/Plan: INR 2.01 today; continue warfarin. Code(s): R79.1 - ABNORMAL COAGULATION PROFILE (3) Hyponatremia Assessment/Plan: Na 126-->130 Code(s): E87.1 - HYPO-OSMOLALITY AND HYPONATREMIA (4) Syncope and collapse Assessment/Plan: Sycnope after urination. orthostatic VS checks. Avoid dehydrtion. ECHO: normal LVEF; severe MR and TR. Remains in severe pain from back spasms. F/u regarding possibility of biliary stricture noted on CT chest. Code(s): R55 - SYNCOPE AND COLLAPSE (5) GERD (gastroesophageal reflux disease) Code(s): K21.9 - GASTRO-ESOPHAGEAL REFLUX DISEASE WITHOUT ESOPHAGITIS (6) HLD (hyperlipidemia) Code(s): E78.5 - HYPERLIPIDEMIA, UNSPECIFIED (7) HTN (hypertension) Assessment/Plan: on Bystolic and losartan; BP better-controlled. Code(s): I10 - ESSENTIAL (PRIMARY) HYPERTENSION (8) Back spasm Assessment/Plan: severe, unrelenting pain. Pain management in progress; on morphine, and Lidocaine patch; has been on Toradol. For CT spine. Code(s): M62.830 - MUSCLE SPASM OF BACK (9) Paroxysmal atrial fibrillation Assessment/Plan: on Bystolic for HR and BP. On wafrarin; keep INR 2-3. Code(s): I48.0 - PAROXYSMAL ATRIAL FIBRILLATION
[2017-08-16] MEDS: SENNOSIDES 8.6MG TABLET (FP) PO SCH (21:25)
[2017-08-16] MEDS: LIDOCAINE PATCH REMOVAL MC SCH (21:32)
--- NOTE | 2017-08-16 22:07 | PN ---
Progress Note (short form) - Note Progress Note: Patient seen and examined. Patient still with severe pain in the mid back. BONE scan results reviewed- acute T8 and T11 compression fractures PLAN 1. The patient is a candidate for a kyphoplasty at t8 and t11, but the patient will need clearance to hold coumadin and INR to be less than 1.4 2. TLSO brace for compression fractures 3.outpatient osteoporosis treatment
[2017-08-17] MEDS: ACETAMINOPHEN 325 MG TABLET (FP) PO PRN ×2 (06:16→11:35)
[2017-08-17] MEDS: oxyCODONE HCL 5 MG TABLET PO PRN ×4 (06:16→21:26)
[2017-08-17 07:41] LABS: INR 3.1 (0.82-1.09)
[2017-08-17 08:10] LABS: CALCIUM 8.4 mg/dL (8.5-10.1)
[2017-08-17 08:14] LABS: ANION GAP 8 (8-16); CO2 28 mmol/L (21-32); CREATININE 0.6 mg/dL (0.55-1.02); GLUCOSE,RANDOM 82 mg/dL (74-106)
[2017-08-17] MEDS: LOSARTAN POTASSIUM 50 MG TABLET (FP) PO SCH (09:43)
[2017-08-17] MEDS: LIDOCAINE 5% TOPICAL PATCH TP SCH (09:43)
[2017-08-17] MEDS: PREGABALIN 25 MG CAPSULE PO SCH ×2 (09:43→21:22)
[2017-08-17] MEDS: NEBIVOLOL 10 MG TABLET (FP) PO SCH (09:43)
[2017-08-17] MEDS: POLYETHYLENE GLYCOL 3350 119 GM BTL PO SCH ×2 (09:44→21:22)
--- NOTE | 2017-08-17 09:56 | PN ---
Progress Note (short form) - Note Progress Note: Neurology History of Present Illness The patient is a 86 year old female brought via EMS, with a significant past medical history of chronic anemia (Iron Infusions twice a month), ulcerate esophagous, IBS, HTN and HLD, who presents to the emergency department after a syncopal episode. EMS noted that the patient was on a camode urinating when she syncopized and fell forward. Reportedly was unresponsive then becoming alert and oriented x4. She currently complains of back spasms which range from mild to moderate. Her son was at the bedside and confirmed history. She has prior syncope but last one was 3 years ago. She completed CT head which did not show acute changes. There was chronic L frontal sinus disease. CT thorax and chest compelted and did not show aneurysm or dissection, large hernia noted, ? biliary stricturing. Neurologic exam was nonfocal and patient mental status at baseline. Son reported she had injection in her back by Dr. escobar with relief in the past. He ordered CT T spine which was reviewed and showed compression fracture at T11, mild compression fracture noted at T8 as well. Bone scan completed and reviewed and indicated the same. Reviewed Dr. Escobar note and considering kyphoplasty and awaiting INR reduction. Patient is in agreement with this. Active Medications Acetaminophen (Tylenol -) 650 mg PO Q6H PRN PRN Reason: FEVER OR PAIN Last Admin: 08/17/17 06:16 Dose: 650 mg Diazepam (Valium -) 2 mg PO Q8H PRN Last Admin: 08/15/17 17:45 Dose: 2 mg Lidocaine (Lidoderm Patch -) 2 patch TP DAILY [facility] Last Admin: 08/17/17 09:43 Dose: 2 patch Losartan Potassium (Cozaar -) 50 mg PO DAILY [facility] Last Admin: 08/17/17 09:43 Dose: 50 mg Miscellaneous (Lidoderm Patch Removal) 1 each MC DAILY@2200 [facility] Last Admin: 08/16/17 21:32 Dose: Not Given Morphine Sulfate (Morphine Injection -) 2 mg IVPUSH Q4H PRN PRN Reason: PAIN Last Admin: 08/15/17 14:45 Dose: 2 mg Nebivolol (Bystolic -) 10 mg PO DAILY [facility] Last Admin: 08/17/17 09:43 Dose: 10 mg Ondansetron HCl (Zofran Injection) 4 mg IVPUSH Q6H PRN PRN Reason: NAUSEA AND/OR VOMITING Last Admin: 08/13/17 20:04 Dose: 4 mg Oxycodone HCl (Roxicodone -) 10 mg PO Q4H PRN PRN Reason: PAIN Last Admin: 08/17/17 06:16 Dose: 10 mg Polyethylene Glycol (Miralax (For Daily Use) -) 17 gm PO BID [facility] Last Admin: 08/17/17 09:44 Dose: Not Given Pregabalin (Lyrica -) 25 mg PO BID [facility] Last Admin: 08/17/17 09:43 Dose: 25 mg Senna (Senna -) 2 tab PO HS [facility] Last Admin: 08/16/17 21:25 Dose: Not Given Warfarin Sodium (Coumadin -) 2 mg PO DAILY@1800 [facility] Last Admin: 08/15/17 17:21 Dose: 2 mg *Physical Exam Vital Signs Period Temp Pulse Resp BP Sys/Ying Pulse Ox Last 24 Hr 97.4 F-98.5 F 64-84 18-20 102-128/50-70 96 GENERAL: Awake, alert, and fully oriented, in no acute distress HEAD: No signs of trauma, normocephalic, atraumatic EYES: PERRLA, EOMI, sclera anicteric, conjunctiva clear ENT: Auricles normal inspection, hearing grossly normal, nares patent, oropharynx clear without exudates. Moist mucosa NECK: Normal ROM, supple, no lymphadenopathy, JVD, or masses LUNGS: No distress, speaks full sentences, clear to auscultation bilaterally HEART: Regular rate and rhythm, normal S1 and S2, no murmurs, rubs or gallops, peripheral pulses normal and equal bilaterally. ABDOMEN: Soft, nontender, normoactive bowel sounds. No guarding, no rebound. No masses EXTREMITIES : Normal inspection, Normal range of motion, no edema. No clubbing or cyanosis. NEUROLOGICAL: Cranial nerves II through XII grossly intact. Normal speech, no focal sensorimotor deficits, finger to nose normal, gait was deferred CBCD WBC 8.7 K/mm3 (4.0-10.0) 08/16/17 06:25 RBC 5.01 M/mm3 (3.60-5.2) 08/16/17 06:25 Hgb 13.5 GM/dL (10.7-15.3) 08/16/17 06:25 Hct 41.8 % (32.4-45.2) 08/16/17 06:25 MCV 83.4 fl (80-96) 08/16/17 06:25 MCHC 32.4 g/dl (32.0-36.0) 08/16/17 06:25 RDW 23.3 % (11.6-15.6) H 08/16/17 06:25 Plt Count 358 K/MM3 (134-434) 08/16/17 06:25 MPV 7.2 fl (7.5-11.1) L 08/16/17 06:25 CMP Sodium 132 mmol/L (136-145) L 08/17/17 05:35 Potassium 4.3 mmol/L (3.5-5.1) 08/17/17 05:35 Chloride 96 mmol/L (98-107) L 08/17/17 05:35 Carbon Dioxide 28 mmol/L (21-32) 08/17/17 05:35 Anion Gap 8 (8-16) 08/17/17 05:35 BUN 11 mg/dL (7-18) D 08/17/17 05:35 Creatinine 0.6 mg/dL (0.55-1.02) 08/17/17 05:35 Creat Clearance w eGFR > 60 (>60) 08/10/17 23:27 Calcium 8.4 mg/dL (8.5-10.1) L 08/17/17 05:35 Total Bilirubin 0.6 mg/dL (0.2-1.0) D 08/10/17 23:27 AST 25 U/L (15-37) D 08/10/17 23:27 ALT 31 U/L (12-78) D 08/10/17 23:27 Alkaline Phosphatase 84 U/L (45-117) 08/10/17 23:27 Total Protein 6.6 g/dl (6.4-8.2) 08/10/17 23:27 Albumin 3.8 g/dl (3.4-5.0) 08/10/17 23:27 - RADIOLOGY CT head and CT chest/thorax reviewed CT T spine reviewed Bone scan reviewed Plan 86 year old female brought via EMS, with a significant past medical history of chronic anemia (Iron Infusions twice a month), ulcerate esophagous, IBS, HTN and HLD, who presents to the emergency department after a syncopal episode. EMS noted that the patient was on a camode urinating when she syncopized and fell forward. CT head which did not show acute changes. CT thorax and chest completed and reviewed as well (did not show aneurysm or dissection, large hernia noted, ? biliary stricturing). CT T spine with compression fx as noted above Neurologic exam was nonfocal and patient mental status at baseline. Dr. Escobar note reviewed Coumadin on hold for procedure Planned for kyphoplasty Hyponatremia improved Avoid aggresive movements Pain control Fall precautions
[2017-08-17] MEDS ORDERED: PHYTONADIONE 5 MG TABLET PO ONE (10:43)
--- NOTE | 2017-08-17 10:51 | PN ---
Progress Note, Physician Chief Complaint: Spasmodic severe back pain mainly in a radicular fashion left posterior chest mid to lower back. History of Present Illness: Patient with severe spastic, burning type pain left post chest had confirmation of Acute T8 and subacute T12 compression fractures of spine on nuclear bone scan yesterday. Planning to have kyphoplasty by Dr. Herbert but he advises INR below 1.5. She has had no coumadin for 2 days and INR still elevated to 3.1. I will Rx with low dose PO Vit K 2.5 mg to help process without risking DVT. Patient is agreeable to the procedure. - Current Medication List Current Medications: Active Medications Acetaminophen (Tylenol -) 650 mg PO Q6H PRN PRN Reason: FEVER OR PAIN Last Admin: 08/17/17 06:16 Dose: 650 mg Diazepam (Valium -) 2 mg PO Q8H PRN Last Admin: 08/15/17 17:45 Dose: 2 mg Lidocaine (Lidoderm Patch -) 2 patch TP DAILY [facility] Last Admin: 08/17/17 09:43 Dose: 2 patch Losartan Potassium (Cozaar -) 50 mg PO DAILY [facility] Last Admin: 08/17/17 09:43 Dose: 50 mg Miscellaneous (Lidoderm Patch Removal) 1 each MC DAILY@2200 [facility] Last Admin: 08/16/17 21:32 Dose: Not Given Morphine Sulfate (Morphine Injection -) 2 mg IVPUSH Q4H PRN PRN Reason: PAIN Last Admin: 08/15/17 14:45 Dose: 2 mg Nebivolol (Bystolic -) 10 mg PO DAILY [facility] Last Admin: 08/17/17 09:43 Dose: 10 mg Ondansetron HCl (Zofran Injection) 4 mg IVPUSH Q6H PRN PRN Reason: NAUSEA AND/OR VOMITING Last Admin: 08/13/17 20:04 Dose: 4 mg Oxycodone HCl (Roxicodone -) 10 mg PO Q4H PRN PRN Reason: PAIN Last Admin: 08/17/17 06:16 Dose: 10 mg Phytonadione (Mephyton -) 2.5 mg PO ONCE ONE Stop: 08/17/17 10:44 Polyethylene Glycol (Miralax (For Daily Use) -) 17 gm PO BID [facility] Last Admin: 08/17/17 09:44 Dose: Not Given Pregabalin (Lyrica -) 25 mg PO BID [facility] Last Admin: 08/17/17 09:43 Dose: 25 mg Senna (Senna -) 2 tab PO HS [facility] Last Admin: 08/16/17 21:25 Dose: Not Given - Objective Vital Signs: Vital Signs Temperature 97.4 F L 08/17/17 05:52 Pulse Rate 64 08/17/17 05:52 Respiratory Rate 20 08/17/17 05:52 Blood Pressure 126/70 08/17/17 05:52 O2 Sat by Pulse Oximetry (%) 96 08/16/17 21:00 Constitutional: Yes: Moderate Distress, Pallor Eyes: Yes: Conjunctiva Clear Cardiovascular: Yes: Regular Rate and Rhythm Respiratory: Yes: Diminished, Wheezes (rare wheeze right base.) Gastrointestinal: Yes: Soft Genitourinary: No: Wade Present Musculoskeletal: Yes: Back Pain Edema: No Neurological: Yes: Alert, Oriented Labs: CBC, BMP 08/16/17 06:25 08/17/17 05:35 INR, PTT INR 3.10 (0.82-1.09) H 08/17/17 05:35 - ....Imaging Other: Report Reviewed (nuclear bone scan) Problem List - Problems (1) Compression fracture of body of thoracic vertebra Assessment/Plan: Patient has acute compression of T8 and subacute/acute compression of T11 Code(s): M48.54XA - COLLAPSED VERTEBRA, NEC, THORACIC REGION, INIT (2) Back spasm Assessment/Plan: Severe with burning pain; Both opiods and Lyrica ordered. Code(s): M62.830 - MUSCLE SPASM OF BACK (3) Elevated INR Assessment/Plan: 3.10; as Dr. Herbert has advised INR 1.4 or below I have Rxed with 2.5 mg Vit K Will follow INR Code(s): R79.1 - ABNORMAL COAGULATION PROFILE (4) Hyponatremia Assessment/Plan: Na 132 and stable at that level. Code(s): E87.1 - HYPO-OSMOLALITY AND HYPONATREMIA (5) HTN (hypertension) Assessment/Plan: On Rx and stable Code(s): I10 - ESSENTIAL (PRIMARY) HYPERTENSION (6) Acute pain Assessment/Plan: On oral and IV opiod Rx and neuropathic pain Rx. Code(s): R52 - PAIN, UNSPECIFIED
--- NOTE | 2017-08-17 15:33 | PN ---
Progress Note, Physician Chief Complaint: Pt still has intermittent back spasm. History of Present Illness: The patient is an 86 year old white woman brought via EMS, with a significant past medical history of chronic anemia (Iron Infusions twice a month), chronic back pain (s/p thoraic spine fusion surgery), esophageal ulcer, IBS, paroxysmal AF, HTN (07/2017 ECHO: normal LVEF; severe MR and TR), and HLD, who presents to the emergency department after a syncopal episode today. EMS notes that the patient was on a camode urinating when she syncopized and fell forward. She remained unresponsive for 2 minutes before becoming alert and oriented x4. She currently complains of back spasms which range from mild to moderate. It is noted that the patient was in the ED yesterday for back spasms as well, for which she was discharged after improvement of symptoms. This counts as day 4 of her back spasms. She also complaints of frequency associated with her chief complaint. The patient denies chest pain, shortness of breath, headache and dizziness. Denies fever, chills, nausea, vomit, diarrhea and constipation. Denies dysuria, urgency and hematuria. Allergies: None Past surgical history: Spinal fusion, laminectomy, left carpal tunnel Social history: Former smoker. No alcohol or drug use reported - Current Medication List Current Medications: Active Medications Acetaminophen (Tylenol -) 650 mg PO Q6H PRN PRN Reason: FEVER OR PAIN Last Admin: 08/17/17 11:35 Dose: 650 mg Diazepam (Valium -) 2 mg PO Q8H PRN Last Admin: 08/15/17 17:45 Dose: 2 mg Lidocaine (Lidoderm Patch -) 2 patch TP DAILY [facility] Last Admin: 08/17/17 09:43 Dose: 2 patch Losartan Potassium (Cozaar -) 50 mg PO DAILY [facility] Last Admin: 08/17/17 09:43 Dose: 50 mg Miscellaneous (Lidoderm Patch Removal) 1 each MC DAILY@2200 [facility] Last Admin: 08/16/17 21:32 Dose: Not Given Morphine Sulfate (Morphine Injection -) 2 mg IVPUSH Q4H PRN PRN Reason: PAIN Last Admin: 08/15/17 14:45 Dose: 2 mg Nebivolol (Bystolic -) 10 mg PO DAILY [facility] Last Admin: 08/17/17 09:43 Dose: 10 mg Ondansetron HCl (Zofran Injection) 4 mg IVPUSH Q6H PRN PRN Reason: NAUSEA AND/OR VOMITING Last Admin: 08/13/17 20:04 Dose: 4 mg Oxycodone HCl (Roxicodone -) 10 mg PO Q4H PRN PRN Reason: PAIN Last Admin: 08/17/17 11:34 Dose: 10 mg Polyethylene Glycol (Miralax (For Daily Use) -) 17 gm PO BID [facility] Last Admin: 08/17/17 09:44 Dose: Not Given Pregabalin (Lyrica -) 25 mg PO BID [facility] Last Admin: 08/17/17 09:43 Dose: 25 mg Senna (Senna -) 2 tab PO HS [facility] Last Admin: 08/16/17 21:25 Dose: Not Given - Objective Vital Signs: Vital Signs Temperature 98.1 F 08/17/17 10:00 Pulse Rate 71 08/17/17 11:53 Respiratory Rate 20 08/17/17 10:00 Blood Pressure 107/60 08/17/17 10:00 O2 Sat by Pulse Oximetry (%) 97 08/17/17 11:53 Constitutional: Yes: Anxious, Mild Distress Eyes: Yes: WNL HENT: Yes: WNL Neck: Yes: WNL Cardiovascular: Yes: Regular Rate and Rhythm Respiratory: Yes: WNL Gastrointestinal: Yes: Soft ...Rectal Exam: Yes: Deferred Genitourinary: No: Anuria Breast(s): Yes: WNL Musculoskeletal: Yes: Back Pain, Muscle Weakness Extremities: Yes: Cool Edema: No Peripheral Pulses WNL: Yes Integumentary: Yes: WNL Neurological: Yes: Alert, Oriented, Weakness Labs: CBC, BMP 08/16/17 06:25 08/17/17 05:35 INR, PTT INR 3.10 (0.82-1.09) H 08/17/17 05:35 Problem List - Problems (1) Dehydration Code(s): E86.0 - DEHYDRATION (2) Elevated INR Assessment/Plan: INR 2.01-->3.1 today; continue warfarin (adjust dose; hold it today). Code(s): R79.1 - ABNORMAL COAGULATION PROFILE (3) Hyponatremia Assessment/Plan: Na 126-->132 over the past several days; not on diuretic. Code(s): E87.1 - HYPO-OSMOLALITY AND HYPONATREMIA (4) Syncope and collapse Assessment/Plan: Sycnope after urination. orthostatic VS checks. Avoid dehydrtion. ECHO: normal LVEF; severe MR and TR. Remains in severe pain from back spasms (compression fractures). F/u regarding possibility of biliary stricture noted on CT chest. Code(s): R55 - SYNCOPE AND COLLAPSE (5) GERD (gastroesophageal reflux disease) Assessment/Plan: also has large hiatal hernia. Code(s): K21.9 - GASTRO-ESOPHAGEAL REFLUX DISEASE WITHOUT ESOPHAGITIS (6) HLD (hyperlipidemia) Code(s): E78.5 - HYPERLIPIDEMIA, UNSPECIFIED (7) HTN (hypertension) Assessment/Plan: on Bystolic and losartan; BP better-controlled. Code(s): I10 - ESSENTIAL (PRIMARY) HYPERTENSION (8) Back spasm Assessment/Plan: severe, unrelenting pain. Pain management in progress; on morphine, and Lidocaine patch; has been on Toradol. Code(s): M62.830 - MUSCLE SPASM OF BACK (9) Paroxysmal atrial fibrillation Assessment/Plan: on Bystolic for HR and BP. On wafrarin; keep INR 2-3 (2.96 today). Code(s): I48.0 - PAROXYSMAL ATRIAL FIBRILLATION
[2017-08-17] MEDS: SENNOSIDES 8.6MG TABLET (FP) PO SCH (21:23)
[2017-08-17] MEDS: LIDOCAINE PATCH REMOVAL MC SCH (21:24)
[2017-08-18] MEDS: oxyCODONE HCL 5 MG TABLET PO PRN ×3 (04:09→22:17)
[2017-08-18] MEDS: diazePAM 2 MG TABLET PO PRN ×2 (06:42→16:41)
[2017-08-18 07:43] LABS: INR 1.48 (0.82-1.09); PROTHROMBIN TIME (PATIENT) 16.7 SEC (9.98-11.88)
--- NOTE | 2017-08-18 09:02 | PN ---
Progress Note, Physician Chief Complaint: Pain still intolerable. History of Present Illness: Patient still having sever pain often burning in her back on the left side with spasms. Multiple IV and PO meds. I will increase Lyrica to 50mg BID. Although I would have preferred to let her INR drift down on its own I elected to give 2.5mg of Vit K PO yesterday and INR fell to 1.48 from 3.10. Will have Dr. Herbert notified. May need heparin post procedure when safe. Patient also told that I need followup urine test due to microscopic hematuria. - Current Medication List Current Medications: Active Medications Acetaminophen (Tylenol -) 650 mg PO Q6H PRN PRN Reason: FEVER OR PAIN Last Admin: 08/17/17 11:35 Dose: 650 mg Diazepam (Valium -) 2 mg PO Q8H PRN Last Admin: 08/18/17 06:42 Dose: 2 mg Lidocaine (Lidoderm Patch -) 2 patch TP DAILY [facility] Last Admin: 08/17/17 09:43 Dose: 2 patch Losartan Potassium (Cozaar -) 50 mg PO DAILY [facility] Last Admin: 08/17/17 09:43 Dose: 50 mg Miscellaneous (Lidoderm Patch Removal) 1 each MC DAILY@2200 [facility] Last Admin: 08/17/17 21:24 Dose: 1 each Morphine Sulfate (Morphine Injection -) 2 mg IVPUSH Q4H PRN PRN Reason: PAIN Last Admin: 08/15/17 14:45 Dose: 2 mg Nebivolol (Bystolic -) 10 mg PO DAILY [facility] Last Admin: 08/17/17 09:43 Dose: 10 mg Ondansetron HCl (Zofran Injection) 4 mg IVPUSH Q6H PRN PRN Reason: NAUSEA AND/OR VOMITING Last Admin: 08/13/17 20:04 Dose: 4 mg Oxycodone HCl (Roxicodone -) 10 mg PO Q4H PRN PRN Reason: PAIN Last Admin: 08/18/17 04:09 Dose: 10 mg Polyethylene Glycol (Miralax (For Daily Use) -) 17 gm PO BID [facility] Last Admin: 08/17/17 21:22 Dose: Not Given Pregabalin (Lyrica -) 50 mg PO BID [facility] Senna (Senna -) 2 tab PO HS [facility] Last Admin: 08/17/17 21:23 Dose: Not Given - Objective Vital Signs: Vital Signs Temperature 97.9 F 08/18/17 06:00 Pulse Rate 76 08/18/17 06:00 Respiratory Rate 20 08/18/17 06:00 Blood Pressure 120/61 08/18/17 06:00 O2 Sat by Pulse Oximetry (%) 98 08/17/17 21:00 Constitutional: Yes: Moderate Distress Eyes: Yes: Conjunctiva Clear Cardiovascular: Yes: Regular Rate and Rhythm Respiratory: Yes: Diminished. No: Rales, Wheezes Gastrointestinal: Yes: Soft Genitourinary: No: Wade Present Musculoskeletal: Yes: Back Pain (on any motion.) Edema: No Neurological: Yes: Alert, Oriented Labs: CBC, BMP 08/16/17 06:25 08/17/17 05:35 INR, PTT INR 1.48 (0.82-1.09) H D 08/18/17 06:40 Problem List - Problems (1) Compression fracture of body of thoracic vertebra Assessment/Plan: INR down to 1.48 Kyphoplasty to be scheduled. Code(s): M48.54XA - COLLAPSED VERTEBRA, NEC, THORACIC REGION, INIT (2) Back spasm Assessment/Plan: Will increase Lyrica and renew PRN Valium Code(s): M62.830 - MUSCLE SPASM OF BACK (3) Elevated INR Assessment/Plan: Down to 1.48 with 2.5mg Vit K Code(s): R79.1 - ABNORMAL COAGULATION PROFILE (4) Hyponatremia Code(s): E87.1 - HYPO-OSMOLALITY AND HYPONATREMIA (5) HTN (hypertension) Assessment/Plan: Stable readings Code(s): I10 - ESSENTIAL (PRIMARY) HYPERTENSION (6) Acute pain Assessment/Plan: On several meds but still spasms of burning pain left posterior chest. Code(s): R52 - PAIN, UNSPECIFIED
[2017-08-18] MEDS ORDERED: PT OWN MED DRAWER 7, Y5N ONE (09:06)
--- NOTE | 2017-08-18 09:52 | PN ---
Progress Note (short form) - Note Progress Note: Neurology History of Present Illness The patient is a 86 year old female brought via EMS, with a significant past medical history of chronic anemia (Iron Infusions twice a month), ulcerate esophagous, IBS, HTN and HLD, who presents to the emergency department after a syncopal episode. EMS noted that the patient was on a camode urinating when she syncopized and fell forward. Reportedly was unresponsive then becoming alert and oriented x4. She currently complains of back spasms which range from mild to moderate. Her son was at the bedside and confirmed history. She has prior syncope but last one was 3 years ago. She completed CT head which did not show acute changes. There was chronic L frontal sinus disease. CT thorax and chest compelted and did not show aneurysm or dissection, large hernia noted, ? biliary stricturing. Neurologic exam was nonfocal and patient mental status at baseline. Son reported she had injection in her back by Dr. escobar with relief in the past. CT T spine which was reviewed and showed compression fracture at T11, mild compression fracture noted at T8 as well. Bone scan completed and reviewed and indicated the same. Reviewed Dr. Escobar note and considering kyphoplasty and awaiting INR reduction which occured with Vit K dose. She does continue to report discomfort despite oral and IV medications listed below. Active Medications Acetaminophen (Tylenol -) 650 mg PO Q6H PRN PRN Reason: FEVER OR PAIN Last Admin: 08/17/17 11:35 Dose: 650 mg Diazepam (Valium -) 2 mg PO Q8H PRN Last Admin: 08/18/17 06:42 Dose: 2 mg Lidocaine (Lidoderm Patch -) 2 patch TP DAILY [facility] Last Admin: 08/17/17 09:43 Dose: 2 patch Losartan Potassium (Cozaar -) 50 mg PO DAILY [facility] Last Admin: 08/17/17 09:43 Dose: 50 mg Miscellaneous (Lidoderm Patch Removal) 1 each MC DAILY@2200 [facility] Last Admin: 08/17/17 21:24 Dose: 1 each Morphine Sulfate (Morphine Injection -) 2 mg IVPUSH Q4H PRN PRN Reason: PAIN Last Admin: 08/15/17 14:45 Dose: 2 mg Nebivolol (Bystolic -) 10 mg PO DAILY [facility] Last Admin: 08/17/17 09:43 Dose: 10 mg Ondansetron HCl (Zofran Injection) 4 mg IVPUSH Q6H PRN PRN Reason: NAUSEA AND/OR VOMITING Last Admin: 08/13/17 20:04 Dose: 4 mg Oxycodone HCl (Roxicodone -) 10 mg PO Q4H PRN PRN Reason: PAIN Last Admin: 08/18/17 04:09 Dose: 10 mg Polyethylene Glycol (Miralax (For Daily Use) -) 17 gm PO BID [facility] Last Admin: 08/17/17 21:22 Dose: Not Given Pregabalin (Lyrica -) 50 mg PO BID [facility] Senna (Senna -) 2 tab PO HS [facility] Last Admin: 08/17/17 21:23 Dose: Not Given *Physical Exam Vital Signs Period Temp Pulse Resp BP Sys/Ying Pulse Ox Last 24 Hr 97.9 F-98.7 F 67-76 20-20 104-120/57-66 96-98 GENERAL: Awake, alert, and fully oriented, in no acute distress HEAD: No signs of trauma, normocephalic, atraumatic EYES: PERRLA, EOMI, sclera anicteric, conjunctiva clear ENT: Auricles normal inspection, hearing grossly normal, nares patent, oropharynx clear without exudates. Moist mucosa NECK: Normal ROM, supple, no lymphadenopathy, JVD, or masses LUNGS: No distress, speaks full sentences, clear to auscultation bilaterally HEART: Regular rate and rhythm, normal S1 and S2, no murmurs, rubs or gallops, peripheral pulses normal and equal bilaterally. ABDOMEN: Soft, nontender, normoactive bowel sounds. No guarding, no rebound. No masses EXTREMITIES : Normal inspection, Normal range of motion, no edema. No clubbing or cyanosis. NEUROLOGICAL: Cranial nerves II through XII grossly intact. Normal speech, no focal sensorimotor deficits, finger to nose normal, gait was deferred CBCD WBC 8.7 K/mm3 (4.0-10.0) 08/16/17 06:25 RBC 5.01 M/mm3 (3.60-5.2) 08/16/17 06:25 Hgb 13.5 GM/dL (10.7-15.3) 08/16/17 06:25 Hct 41.8 % (32.4-45.2) 08/16/17 06:25 MCV 83.4 fl (80-96) 08/16/17 06:25 MCHC 32.4 g/dl (32.0-36.0) 08/16/17 06:25 RDW 23.3 % (11.6-15.6) H 08/16/17 06:25 Plt Count 358 K/MM3 (134-434) 08/16/17 06:25 MPV 7.2 fl (7.5-11.1) L 08/16/17 06:25 CMP Sodium 132 mmol/L (136-145) L 08/17/17 05:35 Potassium 4.3 mmol/L (3.5-5.1) 08/17/17 05:35 Chloride 96 mmol/L (98-107) L 08/17/17 05:35 Carbon Dioxide 28 mmol/L (21-32) 08/17/17 05:35 Anion Gap 8 (8-16) 08/17/17 05:35 BUN 11 mg/dL (7-18) D 08/17/17 05:35 Creatinine 0.6 mg/dL (0.55-1.02) 08/17/17 05:35 Creat Clearance w eGFR > 60 (>60) 08/10/17 23:27 Calcium 8.4 mg/dL (8.5-10.1) L 08/17/17 05:35 Total Bilirubin 0.6 mg/dL (0.2-1.0) D 08/10/17 23:27 AST 25 U/L (15-37) D 08/10/17 23:27 ALT 31 U/L (12-78) D 08/10/17 23:27 Alkaline Phosphatase 84 U/L (45-117) 08/10/17 23:27 Total Protein 6.6 g/dl (6.4-8.2) 08/10/17 23:27 Albumin 3.8 g/dl (3.4-5.0) 08/10/17 23:27 - RADIOLOGY CT head and CT chest/thorax reviewed CT T spine reviewed Bone scan reviewed Plan 86 year old female brought via EMS, with a significant past medical history of chronic anemia (Iron Infusions twice a month), ulcerate esophagous, IBS, HTN and HLD, who presents to the emergency department after a syncopal episode. EMS noted that the patient was on a camode urinating when she syncopized and fell forward. CT head which did not show acute changes. CT thorax and chest completed and reviewed as well (did not show aneurysm or dissection, large hernia noted, ? biliary stricturing). CT T spine with compression fx as noted above Neurologic exam was nonfocal and patient mental status at baseline. Dr. Escobar for possible intervention Coumadin on hold for procedure Planned for kyphoplasty Hyponatremia improved Avoid aggresive movements Pain control Fall precautions
[2017-08-18] MEDS: LOSARTAN POTASSIUM 50 MG TABLET (FP) PO SCH (10:02)
[2017-08-18] MEDS: LIDOCAINE 5% TOPICAL PATCH TP SCH (10:02)
[2017-08-18] MEDS: PREGABALIN 25 MG CAPSULE PO SCH ×2 (10:02→22:17)
[2017-08-18] MEDS: POLYETHYLENE GLYCOL 3350 119 GM BTL PO SCH ×2 (10:02→22:17)
[2017-08-18] MEDS: NEBIVOLOL 10 MG TABLET (FP) PO SCH (10:02)
[2017-08-18 10:07] LABS: URINE APPEARANCE SLCLOUDY; URINE BILIRUBIN NEGATIVE (NEGATIVE); URINE BLOOD 1+ (NEGATIVE); URINE GLUCOSE (UA) NEGATIVE (NEGATIVE); URINE KETONE NEGATIVE (NEGATIVE); URINE NITRITE NEGATIVE (NEGATIVE); URINE PROTEIN NEGATIVE (NEGATIVE)
[2017-08-18 10:09] LABS: URINE COLOR YELLOW
--- NOTE | 2017-08-18 11:49 | PN ---
Progress Note, Physician History of Present Illness: The patient is a 86 year old female brought via EMS, with a significant past medical history of chronic anemia (Iron Infusions twice a month), ulcerate esophagous, IBS, HTN and HLD, who presents to the emergency department after a syncopal episode today. EMS notes that the patient was on a camode urinating when she syncopized and fell forward. She remained unresponsive for 2 minutes before becoming alert and oriented x4. She currently complains of back spasms which range from mild to moderate. It is noted that the patient was in the ED yesterday for back spasms as well, for which she was discharged after improvement of symptoms. This counts as day 4 of her back spasms. She also complaints of frequency associated with her chief complaint. The patient denies chest pain, shortness of breath, headache and dizziness. Denies fever, chills, nausea, vomit, diarrhea and constipation. Denies dysuria, urgency and hematuria. Allergies: None Past surgical history: Spinal fusion, laminectomy, left carpal tunnel Social history: Former smoker. No alcohol or drug use reported - Current Medication List Current Medications: Active Medications Acetaminophen (Tylenol -) 650 mg PO Q6H PRN PRN Reason: FEVER OR PAIN Last Admin: 08/17/17 11:35 Dose: 650 mg Diazepam (Valium -) 2 mg PO Q8H PRN Last Admin: 08/18/17 06:42 Dose: 2 mg Lidocaine (Lidoderm Patch -) 2 patch TP DAILY [facility] Last Admin: 08/18/17 10:02 Dose: 2 patch Losartan Potassium (Cozaar -) 50 mg PO DAILY [facility] Last Admin: 08/18/17 10:02 Dose: 50 mg Miscellaneous (Lidoderm Patch Removal) 1 each MC DAILY@2200 [facility] Last Admin: 08/17/17 21:24 Dose: 1 each Morphine Sulfate (Morphine Injection -) 2 mg IVPUSH Q4H PRN PRN Reason: PAIN Last Admin: 08/15/17 14:45 Dose: 2 mg Nebivolol (Bystolic -) 10 mg PO DAILY [facility] Last Admin: 08/18/17 10:02 Dose: 10 mg Ondansetron HCl (Zofran Injection) 4 mg IVPUSH Q6H PRN PRN Reason: NAUSEA AND/OR VOMITING Last Admin: 08/13/17 20:04 Dose: 4 mg Oxycodone HCl (Roxicodone -) 10 mg PO Q4H PRN PRN Reason: PAIN Last Admin: 08/18/17 04:09 Dose: 10 mg Polyethylene Glycol (Miralax (For Daily Use) -) 17 gm PO BID [facility] Last Admin: 08/18/17 10:02 Dose: 17 gm Pregabalin (Lyrica -) 50 mg PO BID [facility] Last Admin: 08/18/17 10:02 Dose: 50 mg Senna (Senna -) 2 tab PO HS [facility] Last Admin: 08/17/17 21:23 Dose: Not Given - Objective Vital Signs: Vital Signs Temperature 98.0 F 08/18/17 10:00 Pulse Rate 70 08/18/17 10:00 Respiratory Rate 20 08/18/17 10:00 Blood Pressure 126/63 08/18/17 10:00 O2 Sat by Pulse Oximetry (%) 96 08/18/17 10:00 Eyes: Yes: WNL, Conjunctiva Clear, EOM Intact HENT: Yes: WNL, Atraumatic, Normocephalic Neck: Yes: WNL, Supple, Trachea Midline Cardiovascular: Yes: WNL, Regular Rate and Rhythm, Murmur, S1, S2 Respiratory: Yes: WNL, Regular, CTA Bilaterally Gastrointestinal: Yes: WNL, Normal Bowel Sounds Genitourinary: Yes: WNL Musculoskeletal: Yes: WNL Extremities: Yes: WNL Edema: No Integumentary: Yes: WNL Neurological: Yes: WNL, Alert, Oriented ...Motor Strength: WNL Psychiatric: Yes: WNL Labs: CBC, BMP 08/16/17 06:25 08/17/17 05:35 INR, PTT INR 1.48 (0.82-1.09) H D 08/18/17 06:40 Assessment/Plan - Problems (1) Dehydration Code(s): E86.0 - DEHYDRATION (2) Elevated INR Assessment/Plan: INR 2.01-->3.1 today; continue warfarin (adjust dose; hold it today). Code(s): R79.1 - ABNORMAL COAGULATION PROFILE (3) Hyponatremia Assessment/Plan: Na 126-->132 over the past several days; not on diuretic. Code(s): E87.1 - HYPO-OSMOLALITY AND HYPONATREMIA (4) Syncope and collapse Assessment/Plan: Sycnope after urination. orthostatic VS checks. Avoid dehydrtion. ECHO: normal LVEF; severe MR and TR. Remains in severe pain from back spasms (compression fractures). F/u regarding possibility of biliary stricture noted on CT chest. Code(s): R55 - SYNCOPE AND COLLAPSE (5) GERD (gastroesophageal reflux disease) Assessment/Plan: also has large hiatal hernia. Code(s): K21.9 - GASTRO-ESOPHAGEAL REFLUX DISEASE WITHOUT ESOPHAGITIS (6) HLD (hyperlipidemia) Code(s): E78.5 - HYPERLIPIDEMIA, UNSPECIFIED (7) HTN (hypertension) Assessment/Plan: on Bystolic and losartan; BP better-controlled. Code(s): I10 - ESSENTIAL (PRIMARY) HYPERTENSION (8) Back spasm Assessment/Plan: severe, unrelenting pain. Pain management in progress; on morphine, and Lidocaine patch; has been on Toradol. Code(s): M62.830 - MUSCLE SPASM OF BACK (9) Paroxysmal atrial fibrillation Assessment/Plan: on Bystolic for HR and BP. On wafrarin; keep INR 2-3 (2.96 today). Code(s): I48.0 - PAROXYSMAL ATRIAL FIBRILLATION
[2017-08-18 12:43] LABS: URINE BACTERIA RARE /hpf (NONE SEEN); URINE HYALINE CAST 3 /lpf; URINE MUCUS RARE; URINE RBC 9 /hpf (0-3); URINE WBC 26 /hpf (3-5)
[2017-08-18 17:14] LABS: URINE LEUK ESTERASE 3+ (NEGATIVE)
[2017-08-18] MEDS: LIDOCAINE PATCH REMOVAL MC SCH (22:17)
[2017-08-18] MEDS: SENNOSIDES 8.6MG TABLET (FP) PO SCH (22:17)
[2017-08-18] MEDS: ACETAMINOPHEN 325 MG TABLET (FP) PO PRN (22:18)
[2017-08-19] MEDS: diazePAM 2 MG TABLET PO PRN (01:49)
[2017-08-19] MEDS: oxyCODONE HCL 5 MG TABLET PO PRN (06:41)
[2017-08-19] MEDS: ACETAMINOPHEN 325 MG TABLET (FP) PO PRN (06:42)
[2017-08-19 07:54] LABS: INR 1.05 (0.82-1.09); PROTHROMBIN TIME (PATIENT) 11.9 SEC (9.98-11.88)
[2017-08-19 08:02] LABS: ANION GAP 5 (8-16); CALCIUM 8.9 mg/dL (8.5-10.1); CO2 32 mmol/L (21-32); CREATININE 0.6 mg/dL (0.55-1.02); GLUCOSE,RANDOM 95 mg/dL (74-106)
--- NOTE | 2017-08-19 09:06 | PN ---
Progress Note, Physician Chief Complaint: Slept a little better last nite with the increase in gabapentin History of Present Illness: Severe pain left chest with spasms better managed by meds; for kyphoplasty today. Will ask Dr. Herbert how soon I can restart anticoagulation INR 1.05 - Current Medication List Current Medications: Active Medications Acetaminophen (Tylenol -) 650 mg PO Q6H PRN PRN Reason: FEVER OR PAIN Last Admin: 08/19/17 06:42 Dose: 650 mg Diazepam (Valium -) 2 mg PO Q8H PRN Last Admin: 08/19/17 01:49 Dose: 2 mg Lidocaine (Lidoderm Patch -) 2 patch TP DAILY [facility] Last Admin: 08/18/17 10:02 Dose: 2 patch Losartan Potassium (Cozaar -) 50 mg PO DAILY [facility] Last Admin: 08/18/17 10:02 Dose: 50 mg Miscellaneous (Lidoderm Patch Removal) 1 each MC DAILY@2200 [facility] Last Admin: 08/18/17 22:17 Dose: 1 each Morphine Sulfate (Morphine Injection -) 2 mg IVPUSH Q4H PRN PRN Reason: PAIN Last Admin: 08/15/17 14:45 Dose: 2 mg Nebivolol (Bystolic -) 10 mg PO DAILY [facility] Last Admin: 08/18/17 10:02 Dose: 10 mg Ondansetron HCl (Zofran Injection) 4 mg IVPUSH Q6H PRN PRN Reason: NAUSEA AND/OR VOMITING Last Admin: 08/13/17 20:04 Dose: 4 mg Oxycodone HCl (Roxicodone -) 10 mg PO Q4H PRN PRN Reason: PAIN Last Admin: 08/19/17 06:41 Dose: 10 mg Polyethylene Glycol (Miralax (For Daily Use) -) 17 gm PO TID [facility] Pregabalin (Lyrica -) 50 mg PO BID [facility] Last Admin: 08/18/17 22:17 Dose: 50 mg Senna (Senna -) 2 tab PO HS [facility] Last Admin: 08/18/17 22:17 Dose: 2 tab Sodium Phosphate (Fleet Adult Rectal Enema -) 133 ml GA ONCE ONE Stop: 08/19/17 09:16 - Objective Vital Signs: Vital Signs Temperature 97.8 F 08/19/17 06:00 Pulse Rate 69 08/19/17 06:00 Respiratory Rate 18 08/19/17 06:00 Blood Pressure 110/58 08/19/17 06:00 O2 Sat by Pulse Oximetry (%) 96 08/18/17 22:00 Constitutional: Yes: Mild Distress Eyes: Yes: Conjunctiva Clear Cardiovascular: Yes: Regular Rate and Rhythm Respiratory: Yes: Diminished. No: Rales Gastrointestinal: Yes: Soft, Other (No BM yet; will increase Miralax to tid and add fleets) Genitourinary: No: Wade Present Edema: No Neurological: Yes: Alert, Oriented Labs: CBC, BMP 08/16/17 06:25 08/19/17 06:40 INR, PTT INR 1.05 (0.82-1.09) 08/19/17 06:40 Problem List - Problems (1) Compression fracture of body of thoracic vertebra Assessment/Plan: For kyphoplasty today. Code(s): M48.54XA - COLLAPSED VERTEBRA, NEC, THORACIC REGION, INIT (2) Back spasm Assessment/Plan: better on current Rx Code(s): M62.830 - MUSCLE SPASM OF BACK (3) Elevated INR Assessment/Plan: Now WNL in preparation for kyphoplasty Code(s): R79.1 - ABNORMAL COAGULATION PROFILE (4) HTN (hypertension) Assessment/Plan: BP stable with systolic of 140 Code(s): I10 - ESSENTIAL (PRIMARY) HYPERTENSION Qualifiers: Hypertension type: essential hypertension Qualified Code(s): I10 - Essential (primary) hypertension; I10 - Essential (primary) hypertension; I10 - Essential (primary) hypertension (5) Hyponatremia Assessment/Plan: Na 131 Code(s): E87.1 - HYPO-OSMOLALITY AND HYPONATREMIA (6) Acute pain Assessment/Plan: Better control on current Rx Code(s): R52 - PAIN, UNSPECIFIED (7) Hematuria Assessment/Plan: Urine C/S neg; add urine cytology X3 Code(s): R31.9 - HEMATURIA, UNSPECIFIED
[2017-08-19] MEDS ORDERED: SODIUM PHOSPHATE/NA BIPHOS 133 ML ENEMA PR ONE (09:15)
[2017-08-19] MEDS ORDERED: PT OWN MED DRAWER 7, Y5N ONE ×2 (10:17→18:24)
[2017-08-19] MEDS: LOSARTAN POTASSIUM 50 MG TABLET (FP) PO SCH (10:19)
[2017-08-19] MEDS: PREGABALIN 25 MG CAPSULE PO SCH ×2 (10:19→21:47)
[2017-08-19] MEDS: LIDOCAINE 5% TOPICAL PATCH TP SCH (10:20)
[2017-08-19] MEDS: NEBIVOLOL 10 MG TABLET (FP) PO SCH (10:20)
[2017-08-19] MEDS: POLYETHYLENE GLYCOL 3350 119 GM BTL PO SCH ×2 (14:17→21:50)
[2017-08-19] MEDS ORDERED: morphine CARPU-JECT 4 MG/1 ML DISP.SYRIN ONE (20:11)
[2017-08-19] MEDS: morphine CARPU-JECT 2 MG/1 ML DISP.SYRIN IVPUSH PRN (20:17)
--- NOTE | 2017-08-19 21:28 | PN ---
Progress Note (short form) - Note Progress Note: Patient seen and examined. SPoke with son several times throughout [facility]. The patient was scheduled as an add on earlier today for a kyphoplasty. My office was told sometime around 5pm by the OR personal secretary that the case may not go today since there had been emergency cases. I asked to speak with the anesthesiologist or Eve but no one called me back. I called the OR around 530-6pm. I was told that the last emergency is starting and that I will start my case either at 7-730 or 9-930 depending on the extent of the vascular case. I then received a text message stating that if i had known my case has been rescheduled. I called back the OR and spoke with the nurse who stated that it was not possible to do the case since there has been an emergency addon and I should speak with Eve. He said he would relay the message to her. I did receive a phone call from eve at 800pm stating that the hospital policy is any case that starts after 8pm requires to be an Emergency and that this case is not considered one. I told her no one notified me about this until now. I showed up to the PACU at 830pm and was told by the PACU nurse that the OR nurse stated that I canceled the case- which is untrue. She told me that the last case came to the pacu at 715, and the case could have started at that time. Since the patient had been NPO after breakfast today, and the case will not happen tonight, the patient was told she can eat. THe patient will need anticoagulation since the patient had been off coumadin for her afib and her INR is now 1.08. I spoke with the nurse practitioner mailing section clerk regarding this issue, and a dose of heparin SQ was ordered. We will try to work out a time to do the case tomorrow evening. The patient and her son were notified about this and understood the situation.
[2017-08-19] MEDS: LIDOCAINE PATCH REMOVAL MC SCH (21:47)
[2017-08-19] MEDS: SENNOSIDES 8.6MG TABLET (FP) PO SCH ×2 (21:47→21:53)
[2017-08-19] MEDS ORDERED: HEPARIN NA (PORCINE) 5,000 UNITS/ML 1ML VIAL SQ ONE (22:00)
--- NOTE | 2017-08-19 23:24 | RAPID ---
Physical Examination Vital Signs: Vital Signs Temperature 98.4 F 08/19/17 20:26 Pulse Rate 74 08/19/17 20:26 Respiratory Rate 18 08/19/17 20:54 Blood Pressure 110/60 08/19/17 20:26 O2 Sat by Pulse Oximetry (%) 96 08/19/17 20:54 Rapid response was called for an 86yr F that was admitted for syncope for a syncopal episode that happened after she went to the bathroom. It was witnessed, and there was no fall because she was caught before she hit the floor. There was a brief loss of consciousness, but no convulsions. PE: Gen: Elderly female, on oxygen face mask Neurol:Awake, Alert and oriented to time place and person, symmetrical face, normal muscle strength,tone and reflexes Abd: Soft, no areas of tenderness Chest: Clear to auscultation bilaterally Heart: s1, s2, only Extremities: No pedal edema Assessment: Syncope: Likely vasovagal Plan: Orthostatic vitals [place] oral fluid Monitor BGMs- 110 Labs: CBC, BMP 08/16/17 06:25 08/19/17 06:40
[2017-08-20] MEDS: diazePAM 2 MG TABLET PO PRN (00:10)
[2017-08-20] MEDS: oxyCODONE HCL 5 MG TABLET PO PRN ×2 (04:58→12:53)
[2017-08-20] MEDS: ACETAMINOPHEN 325 MG TABLET (FP) PO PRN (04:59)
[2017-08-20] MEDS: POLYETHYLENE GLYCOL 3350 119 GM BTL PO SCH ×3 (06:36→21:50)
[2017-08-20 07:56] LABS: INR 1.06 (0.82-1.09)
--- NOTE | 2017-08-20 09:48 | PN ---
Progress Note (short form) - Note Progress Note: Neurology History of Present Illness The patient is a 86 year old female brought via EMS, with a significant past medical history of chronic anemia (Iron Infusions twice a month), ulcerate esophagous, IBS, HTN and HLD, who presents to the emergency department after a syncopal episode. EMS noted that the patient was on a camode urinating when she syncopized and fell forward. Reportedly was unresponsive then becoming alert and oriented x4. She currently complains of back spasms which range from mild to moderate. Her son was at the bedside and confirmed history. She has prior syncope but last one was 3 years ago. She completed CT head which did not show acute changes. There was chronic L frontal sinus disease. CT thorax and chest compelted and did not show aneurysm or dissection, large hernia noted, ? biliary stricturing. Neurologic exam was nonfocal and patient mental status at baseline. Son reported she had injection in her back by Dr. escobar with relief in the past. CT T spine which was reviewed and showed compression fracture at T11, mild compression fracture noted at T8 as well. Bone scan completed and reviewed and indicated the same. Reviewed Dr. Escobar note and considering kyphoplasty and awaiting INR reduction which occured with Vit K dose. She does continue to report discomfort despite oral and IV medications listed below. Frustated this morning that procedure was not completed last night and according to notes may occur this evening. Defer to Dr. Escobar and his note regarding this. Active Medications Acetaminophen (Tylenol -) 650 mg PO Q6H PRN PRN Reason: FEVER OR PAIN Last Admin: 08/20/17 04:59 Dose: 650 mg Diazepam (Valium -) 2 mg PO Q8H PRN Last Admin: 08/20/17 00:10 Dose: 2 mg Lidocaine (Lidoderm Patch -) 2 patch TP DAILY [facility] Last Admin: 08/19/17 10:20 Dose: Not Given Losartan Potassium (Cozaar -) 50 mg PO DAILY [facility] Last Admin: 08/19/17 10:19 Dose: 50 mg Miscellaneous (Lidoderm Patch Removal) 1 each MC DAILY@2200 [facility] Last Admin: 08/19/17 21:47 Dose: 1 each Morphine Sulfate (Morphine Injection -) 2 mg IVPUSH Q4H PRN PRN Reason: PAIN Last Admin: 08/19/17 20:17 Dose: 2 mg Nebivolol (Bystolic -) 10 mg PO DAILY [facility] Last Admin: 08/19/17 10:20 Dose: 10 mg Ondansetron HCl (Zofran Injection) 4 mg IVPUSH Q6H PRN PRN Reason: NAUSEA AND/OR VOMITING Last Admin: 08/13/17 20:04 Dose: 4 mg Oxycodone HCl (Roxicodone -) 10 mg PO Q4H PRN PRN Reason: PAIN Last Admin: 08/20/17 04:58 Dose: 10 mg Polyethylene Glycol (Miralax (For Daily Use) -) 17 gm PO TID [facility] Last Admin: 08/20/17 06:36 Dose: 17 g Pregabalin (Lyrica -) 50 mg PO BID [facility] Last Admin: 08/19/17 21:47 Dose: 50 mg Senna (Senna -) 2 tab PO HS [facility] Last Admin: 08/19/17 21:53 Dose: Not Given *Physical Exam Vital Signs Period Temp Pulse Resp BP Sys/Ying Pulse Ox Last 24 Hr 97.1 F-98.4 F 67-91 18-20 95-157/50-80 96-96 GENERAL: Awake, alert, and fully oriented, in no acute distress HEAD: No signs of trauma, normocephalic, atraumatic EYES: PERRLA, EOMI, sclera anicteric, conjunctiva clear ENT: Auricles normal inspection, hearing grossly normal, nares patent, oropharynx clear without exudates. Moist mucosa NECK: Normal ROM, supple, no lymphadenopathy, JVD, or masses LUNGS: No distress, speaks full sentences, clear to auscultation bilaterally HEART: Regular rate and rhythm, normal S1 and S2, no murmurs, rubs or gallops, peripheral pulses normal and equal bilaterally. ABDOMEN: Soft, nontender, normoactive bowel sounds. No guarding, no rebound. No masses EXTREMITIES : Normal inspection, Normal range of motion, no edema. No clubbing or cyanosis. NEUROLOGICAL: Cranial nerves II through XII grossly intact. Normal speech, no focal sensorimotor deficits, finger to nose normal, gait was deferred CBCD WBC 8.7 K/mm3 (4.0-10.0) 08/16/17 06:25 RBC 5.01 M/mm3 (3.60-5.2) 08/16/17 06:25 Hgb 13.5 GM/dL (10.7-15.3) 08/16/17 06:25 Hct 41.8 % (32.4-45.2) 08/16/17 06:25 MCV 83.4 fl (80-96) 08/16/17 06:25 MCHC 32.4 g/dl (32.0-36.0) 08/16/17 06:25 RDW 23.3 % (11.6-15.6) H 08/16/17 06:25 Plt Count 358 K/MM3 (134-434) 08/16/17 06:25 MPV 7.2 fl (7.5-11.1) L 08/16/17 06:25 CMP Sodium 131 mmol/L (136-145) L 08/19/17 06:40 Potassium 4.6 mmol/L (3.5-5.1) 08/19/17 06:40 Chloride 94 mmol/L (98-107) L 08/19/17 06:40 Carbon Dioxide 32 mmol/L (21-32) 08/19/17 06:40 Anion Gap 5 (8-16) L 08/19/17 06:40 BUN 12 mg/dL (7-18) 08/19/17 06:40 Creatinine 0.6 mg/dL (0.55-1.02) 08/19/17 06:40 Creat Clearance w eGFR > 60 (>60) 08/10/17 23:27 Calcium 8.9 mg/dL (8.5-10.1) 08/19/17 06:40 Total Bilirubin 0.6 mg/dL (0.2-1.0) D 08/10/17 23:27 AST 25 U/L (15-37) D 08/10/17 23:27 ALT 31 U/L (12-78) D 08/10/17 23:27 Alkaline Phosphatase 84 U/L (45-117) 08/10/17 23:27 Total Protein 6.6 g/dl (6.4-8.2) 08/10/17 23:27 Albumin 3.8 g/dl (3.4-5.0) 08/10/17 23:27 - RADIOLOGY CT head and CT chest/thorax reviewed CT T spine reviewed Bone scan reviewed Plan 86 year old female brought via EMS, with a significant past medical history of chronic anemia (Iron Infusions twice a month), ulcerate esophagous, IBS, HTN and HLD, who presents to the emergency department after a syncopal episode. EMS noted that the patient was on a camode urinating when she syncopized and fell forward. CT head which did not show acute changes. CT thorax and chest completed and reviewed as well (did not show aneurysm or dissection, large hernia noted, ? biliary stricturing). CT T spine with compression fx as noted above Neurologic exam was nonfocal and patient mental status at baseline. Dr. Escobar for possible intervention, planned for kyphoplasty Hyponatremia improved Avoid aggresive movements Pain control which has been limited by PO and IV medications Reassurance provided Fall precautions
[2017-08-20] MEDS: LOSARTAN POTASSIUM 50 MG TABLET (FP) PO SCH (09:49)
[2017-08-20] MEDS: NEBIVOLOL 10 MG TABLET (FP) PO SCH (09:50)
[2017-08-20] MEDS: LIDOCAINE 5% TOPICAL PATCH TP SCH (09:51)
--- NOTE | 2017-08-20 10:21 | PN ---
Progress Note (short form) - Note Progress Note: Patient upset about delay in Kyphoplasty. I will call to get a reschedule for today. She had a syncopal episode last nite while brushing her teeth in the bathroom but the nurse was there to hold her and prevent a fall. Pain only tolerable when still in bed. Finally had BM. On Exam: Vital Signs Temp 97.6 F 08/20/17 06:00 Pulse 69 08/20/17 06:00 Resp 20 08/20/17 06:00 BP 100/74 08/20/17 06:00 Pulse Ox 96 08/19/17 20:54 Intake & Output 08/19/17 08/19/17 08/20/17 11:59 23:59 11:59 Intake Total 580 270 120 Output Total 300 Balance 280 270 120 Intake: Oral 580 270 120 Output: Urine 300 Void 300 Other: Voiding Method Bedpan Toilet # Unmeasured Voids Void 1 1 1 Bowel Movement Yes No # Bowel Movements 1 Alert Slightly pale 1 terrible spasm of pain when she turned to permit me to listen to her lungs Cor: Reg Abd: Soft Ext: No pedal edema Abnormal Lab Results 08/20/17 06:40 PT with INR 12.00 H IMP: Acute Compression Fx T8 and subacute T11 Hypertension Hx: LC Disc Surgery X2 Acute and Chronic Pain Hx: Dvt and paroxysmal A. Fib Plan: Kyphoplasty F/U INR and Na Resart heparin and coumadin as soon as cleared by Pain MD PT ?Home VS SNF Problem List - Problems (1) Compression fracture of body of thoracic vertebra Code(s): M48.54XA - COLLAPSED VERTEBRA, NEC, THORACIC REGION, INIT (2) Back spasm Code(s): M62.830 - MUSCLE SPASM OF BACK (3) Elevated INR Code(s): R79.1 - ABNORMAL COAGULATION PROFILE (4) HTN (hypertension) Code(s): I10 - ESSENTIAL (PRIMARY) HYPERTENSION Qualifiers: Hypertension type: essential hypertension Qualified Code(s): I10 - Essential (primary) hypertension; I10 - Essential (primary) hypertension; I10 - Essential (primary) hypertension (5) Hyponatremia Code(s): E87.1 - HYPO-OSMOLALITY AND HYPONATREMIA (6) Acute pain Code(s): R52 - PAIN, UNSPECIFIED (7) Hematuria Code(s): R31.9 - HEMATURIA, UNSPECIFIED
[2017-08-20] MEDS ORDERED: PREGABALIN 25 MG CAPSULE PO SCH (10:30)
[2017-08-20] MEDS: PREGABALIN 25 MG CAPSULE PO SCH ×2 (11:17→21:49)
[2017-08-20] MEDS ORDERED: DEXTROSE 5%-0.45% SALINE 1,000 ML IV SCH (16:15)
[2017-08-20] MEDS ORDERED: LIDOCAINE HCL 1%, 10 MG/ML (20ML VIAL) ONE (17:57)
[2017-08-20] MEDS ORDERED: BUPIVACAINE HCL/PF 0.5% (5MG/ML) 10 ML VIAL ONE (17:57)
[2017-08-20] MEDS ORDERED: PROPOFOL 20 ML ONE (18:01)
[2017-08-20] MEDS ORDERED: MIDAZOLAM HCL 2 MG/2 ML SINGLE DOSE VIAL ONE (18:02)
[2017-08-20] MEDS ORDERED: BUPIVACAINE HCL/PF 0.25% (2.5MG/ML) 10 ML VIAL ONE (18:18)
[2017-08-20] MEDS ORDERED: ceFAZolin SODIUM 1 GM VIAL ONE (18:38)
[2017-08-20] MEDS ORDERED: ONDANSETRON 4 MG/2 ML VIAL ONE (18:38)
[2017-08-20] MEDS ORDERED: ceFAZolin SODIUM 1 GM VIAL IVPB ONE (18:45)
[2017-08-20] MEDS ORDERED: BUPIVACAINE HCL/PF 0.25% (2.5MG/ML) 10 ML VIAL IJ ONE (19:02)
--- NOTE | 2017-08-20 19:30 | PN ---
Progress Note (short form) - Note Progress Note: status post kyphoplasty t8 and t11. no complications may restart all blood thinners in 24hrs (08/21/17 after 7:30pm) may need short term rehab.
[2017-08-20] MEDS ORDERED: PROMETHAZINE HCL 25 MG/1 ML VIAL IVPUSH PRN (19:33)
[2017-08-20] MEDS ORDERED: ONDANSETRON 4 MG/2 ML VIAL IVPUSH PRN ×2 (19:33→19:47)
[2017-08-20] MEDS: LACTATED RINGERS SOLUTION 1,000 ML IV SCH (20:45)
[2017-08-20] MEDS: LIDOCAINE PATCH REMOVAL MC SCH (21:48)
[2017-08-20] MEDS: SENNOSIDES 8.6MG TABLET (FP) PO SCH (21:49)
[2017-08-20] MEDS ORDERED: LIDOCAINE PATCH REMOVAL MC SCH (22:00)
[2017-08-21] MEDS: morphine CARPU-JECT 8 MG/1 ML DISP.SYRIN IVPUSH PRN ×4 (03:47→20:25)
[2017-08-21] MEDS ORDERED: PT OWN MED DRAWER 7, Y5N ONE ×2 (03:58→09:22)
[2017-08-21] MEDS: POLYETHYLENE GLYCOL 3350 119 GM BTL PO SCH ×3 (05:46→21:47)
--- NOTE | 2017-08-21 06:45 | PN ---
Progress Note, Physician Chief Complaint: Pt still has intermittent and severe back spasms. History of Present Illness: The patient is an 86 year old white woman brought via EMS, with a significant past medical history of chronic anemia (Iron Infusions twice a month), chronic back pain (s/p thoraic spine fusion surgery), esophageal ulcer, IBS, paroxysmal AF, HTN (07/2017 ECHO: normal LVEF; severe MR and TR), and HLD, who presents to the emergency department after a syncopal episode today. EMS notes that the patient was on a camode urinating when she syncopized and fell forward. She remained unresponsive for 2 minutes before becoming alert and oriented x4. She currently complains of back spasms which range from mild to moderate. It is noted that the patient was in the ED yesterday for back spasms as well, for which she was discharged after improvement of symptoms. This counts as day 4 of her back spasms. She also complaints of frequency associated with her chief complaint. The patient denies chest pain, shortness of breath, headache and dizziness. Denies fever, chills, nausea, vomit, diarrhea and constipation. Denies dysuria, urgency and hematuria. Allergies: None Past surgical history: Spinal fusion, laminectomy, left carpal tunnel Social history: Former smoker. No alcohol or drug use reported - Current Medication List Current Medications: Active Medications Acetaminophen (Tylenol -) 650 mg PO Q6H PRN PRN Reason: FEVER OR PAIN Diazepam (Valium -) 2 mg PO Q8H PRN Fentanyl (Sublimaze Injection -) 50 mcg IVPUSH [id number] PRN PRN Reason: PAIN Stop: 08/23/17 19:34 Last Admin: 08/20/17 20:10 Dose: 50 mcg Lactated Ringer's (Lactated Ringers Solution) 1,000 mls @ 125 mls/hr IV ASDIR [facility] Last Admin: 08/20/17 20:45 Dose: 125 mls/hr Lidocaine (Lidoderm Patch -) 2 patch TP DAILY [facility] Losartan Potassium (Cozaar -) 50 mg PO DAILY [facility] Miscellaneous (Lidoderm Patch Removal) 1 each MC DAILY@2200 [facility] Last Admin: 08/20/17 21:48 Dose: 1 each Morphine Sulfate (Morphine Sulfate) 2 mg IVPUSH Q4H PRN PRN Reason: PAIN Last Admin: 08/21/17 03:47 Dose: 2 mg Nebivolol (Bystolic -) 10 mg PO DAILY [facility] Ondansetron HCl (Zofran Injection) 4 mg IVPUSH Q6H PRN PRN Reason: NAUSEA AND/OR VOMITING Oxycodone HCl (Roxicodone -) 10 mg PO Q4H PRN PRN Reason: PAIN Polyethylene Glycol (Miralax (For Daily Use) -) 17 gm PO TID [facility] Last Admin: 08/21/17 05:46 Dose: Not Given Pregabalin (Lyrica -) 25 mg PO BID [facility] Last Admin: 08/20/17 21:49 Dose: 25 mg Senna (Senna -) 2 tab PO HS [facility] Last Admin: 08/20/17 21:49 Dose: 2 tab - Objective Vital Signs: Vital Signs Temperature 98.0 F 08/21/17 06:00 Pulse Rate 77 08/21/17 06:00 Respiratory Rate 20 08/21/17 06:00 Blood Pressure 105/52 08/21/17 06:00 O2 Sat by Pulse Oximetry (%) 100 08/20/17 21:00 Constitutional: Yes: Anxious, Moderate Distress Eyes: Yes: WNL HENT: Yes: WNL Neck: Yes: WNL Cardiovascular: Yes: Regular Rate and Rhythm, S1, S2 Respiratory: Yes: WNL Gastrointestinal: Yes: Soft ...Rectal Exam: Yes: Deferred Genitourinary: No: Anuria Breast(s): Yes: WNL Musculoskeletal: Yes: Back Pain, Muscle Pain Extremities: Yes: Cool Edema: No Peripheral Pulses WNL: Yes Integumentary: Yes: WNL Neurological: Yes: Alert, Oriented, Weakness Psychiatric: Yes: Other Labs: CBC, BMP 08/16/17 06:25 08/19/17 06:40 INR, PTT INR 1.06 (0.82-1.09) 08/20/17 06:40 Problem List - Problems (1) Dehydration Code(s): E86.0 - DEHYDRATION (2) Elevated INR Assessment/Plan: INR now 1.05 warfarin held pending kyphoplasty. Code(s): R79.1 - ABNORMAL COAGULATION PROFILE (3) Hyponatremia Assessment/Plan: Na 126-->132 over the past several days; not on diuretic. Code(s): E87.1 - HYPO-OSMOLALITY AND HYPONATREMIA (4) Syncope and collapse Assessment/Plan: Sycnope after urination. orthostatic VS checks. Avoid dehydrtion. ECHO: normal LVEF; severe MR and TR. Remains in severe pain from back spasms (compression fractures). F/u regarding possibility of biliary stricture noted on CT chest. Code(s): R55 - SYNCOPE AND COLLAPSE (5) GERD (gastroesophageal reflux disease) Assessment/Plan: also has large hiatal hernia. Code(s): K21.9 - GASTRO-ESOPHAGEAL REFLUX DISEASE WITHOUT ESOPHAGITIS (6) HLD (hyperlipidemia) Code(s): E78.5 - HYPERLIPIDEMIA, UNSPECIFIED (7) HTN (hypertension) Assessment/Plan: on Bystolic and losartan; BP better-controlled. Code(s): I10 - ESSENTIAL (PRIMARY) HYPERTENSION Qualifiers: Hypertension type: essential hypertension Qualified Code(s): I10 - Essential (primary) hypertension; I10 - Essential (primary) hypertension; I10 - Essential (primary) hypertension (8) Back spasm Assessment/Plan: severe, unrelenting pain. Pain management in progress; on morphine, and Lidocaine patch; has been on Toradol. For kyphoplasty. Code(s): M62.830 - MUSCLE SPASM OF BACK (9) Paroxysmal atrial fibrillation Assessment/Plan: on Bystolic for HR and BP. On warfarin; held pending kyphoplasty. Resaart TOYA (with IV heparin or lovenox until INR again 2-3). Code(s): I48.0 - PAROXYSMAL ATRIAL FIBRILLATION
--- NOTE | 2017-08-21 06:50 | PN ---
Progress Note, Physician Chief Complaint: Pt still has intermittent and severe back spasms. Awaits kyphoplasty; very anxious. Had syncopal episode while in bathroom last evening (?brushing teeth; ? after urination); no fall (RN held her). History of Present Illness: The patient is an 86 year old white woman brought via EMS, with a significant past medical history of chronic anemia (Iron Infusions twice a month), chronic back pain (s/p thoraic spine fusion surgery), esophageal ulcer, IBS, paroxysmal AF, HTN (07/2017 ECHO: normal LVEF; severe MR and TR), and HLD, who presents to the emergency department after a syncopal episode today. EMS notes that the patient was on a camode urinating when she syncopized and fell forward. She remained unresponsive for 2 minutes before becoming alert and oriented x4. She currently complains of back spasms which range from mild to moderate. It is noted that the patient was in the ED yesterday for back spasms as well, for which she was discharged after improvement of symptoms. This counts as day 4 of her back spasms. She also complaints of frequency associated with her chief complaint. The patient denies chest pain, shortness of breath, headache and dizziness. Denies fever, chills, nausea, vomit, diarrhea and constipation. Denies dysuria, urgency and hematuria. Allergies: None Past surgical history: Spinal fusion, laminectomy, left carpal tunnel Social history: Former smoker. No alcohol or drug use reported - Current Medication List Current Medications: Active Medications Acetaminophen (Tylenol -) 650 mg PO Q6H PRN PRN Reason: FEVER OR PAIN Diazepam (Valium -) 2 mg PO Q8H PRN Fentanyl (Sublimaze Injection -) 50 mcg IVPUSH [id number] PRN PRN Reason: PAIN Stop: 08/23/17 19:34 Last Admin: 08/20/17 20:10 Dose: 50 mcg Lactated Ringer's (Lactated Ringers Solution) 1,000 mls @ 125 mls/hr IV [facility]IR [facility] Last Admin: 08/20/17 20:45 Dose: 125 mls/hr Lidocaine (Lidoderm Patch -) 2 patch TP DAILY [facility] Losartan Potassium (Cozaar -) 50 mg PO DAILY [facility] Miscellaneous (Lidoderm Patch Removal) 1 each MC DAILY@2200 [facility] Last Admin: 08/20/17 21:48 Dose: 1 each Morphine Sulfate (Morphine Sulfate) 2 mg IVPUSH Q4H PRN PRN Reason: PAIN Last Admin: 08/21/17 03:47 Dose: 2 mg Nebivolol (Bystolic -) 10 mg PO DAILY [facility] Ondansetron HCl (Zofran Injection) 4 mg IVPUSH Q6H PRN PRN Reason: NAUSEA AND/OR VOMITING Oxycodone HCl (Roxicodone -) 10 mg PO Q4H PRN PRN Reason: PAIN Polyethylene Glycol (Miralax (For Daily Use) -) 17 gm PO TID [facility] Last Admin: 08/21/17 05:46 Dose: Not Given Pregabalin (Lyrica -) 25 mg PO BID [facility] Last Admin: 08/20/17 21:49 Dose: 25 mg Senna (Senna -) 2 tab PO HS [facility] Last Admin: 08/20/17 21:49 Dose: 2 tab - Objective Vital Signs: Vital Signs Temperature 98.0 F 08/21/17 06:00 Pulse Rate 77 08/21/17 06:00 Respiratory Rate 20 08/21/17 06:00 Blood Pressure 105/52 08/21/17 06:00 O2 Sat by Pulse Oximetry (%) 100 08/20/17 21:00 Constitutional: Yes: Anxious, Mild Distress Eyes: Yes: WNL HENT: Yes: WNL Neck: Yes: WNL Cardiovascular: Yes: WNL Respiratory: Yes: Regular Gastrointestinal: Yes: Soft ...Rectal Exam: Yes: Deferred Genitourinary: No: Anuria Musculoskeletal: Yes: Back Pain, Muscle Pain, Muscle Weakness Extremities: Yes: Cool Edema: No Peripheral Pulses WNL: Yes Integumentary: Yes: WNL Neurological: Yes: Alert, Oriented, Weakness Psychiatric: Yes: Other Labs: CBC, BMP 08/16/17 06:25 08/19/17 06:40 INR, PTT INR 1.06 (0.82-1.09) 08/20/17 06:40 Problem List - Problems (1) Dehydration Code(s): E86.0 - DEHYDRATION (2) Elevated INR Assessment/Plan: warfarin held pending kyphoplasty. Code(s): R79.1 - ABNORMAL COAGULATION PROFILE (3) Hyponatremia Assessment/Plan: Na 126-->131 over the past several days; not on diuretic. Code(s): E87.1 - HYPO-OSMOLALITY AND HYPONATREMIA (4) Syncope and collapse Assessment/Plan: Sycnope after urination; another episode last night. orthostatic VS checks. Avoid dehydrtion. ECHO: normal LVEF; severe MR and TR. Remains in severe pain from back spasms (compression fractures); weak from many days in bed. F/u with neurologist. Code(s): R55 - SYNCOPE AND COLLAPSE (5) GERD (gastroesophageal reflux disease) Assessment/Plan: also has large hiatal hernia. Code(s): K21.9 - GASTRO-ESOPHAGEAL REFLUX DISEASE WITHOUT ESOPHAGITIS (6) HLD (hyperlipidemia) Assessment/Plan: HDL 120; LDL 74; trigly 69 mg/dL. Code(s): E78.5 - HYPERLIPIDEMIA, UNSPECIFIED (7) HTN (hypertension) Assessment/Plan: on Bystolic and losartan; BP better-controlled. Code(s): I10 - ESSENTIAL (PRIMARY) HYPERTENSION Qualifiers: Hypertension type: essential hypertension Qualified Code(s): I10 - Essential (primary) hypertension; I10 - Essential (primary) hypertension; I10 - Essential (primary) hypertension (8) Back spasm Assessment/Plan: severe, unrelenting pain. Pain management in progress; on morphine, and Lidocaine patch; has been on Toradol. For kyphoplasty. Code(s): M62.830 - MUSCLE SPASM OF BACK (9) Paroxysmal atrial fibrillation Assessment/Plan: on Bystolic for HR and BP. On warfarin; held pending kyphoplasty. Resaart TOYA (with IV heparin or lovenox until INR again 2-3). Code(s): I48.0 - PAROXYSMAL ATRIAL FIBRILLATION
[2017-08-21 09:02] LABS: INR 1.08 (0.82-1.09); PROTHROMBIN TIME (PATIENT) 12.2 SEC (9.98-11.88)
--- NOTE | 2017-08-21 09:08 | PN ---
Progress Note, Physician History of Present Illness: The patient is a 86 year old female brought via EMS, with a significant past medical history of chronic anemia (Iron Infusions twice a month), ulcerate esophagous, IBS, HTN and HLD, who presents to the emergency department after a syncopal episode today. EMS notes that the patient was on a camode urinating when she syncopized and fell forward. She remained unresponsive for 2 minutes before becoming alert and oriented x4. She currently complains of back spasms which range from mild to moderate. It is noted that the patient was in the ED yesterday for back spasms as well, for which she was discharged after improvement of symptoms. This counts as day 4 of her back spasms. She also complaints of frequency associated with her chief complaint. The patient denies chest pain, shortness of breath, headache and dizziness. Denies fever, chills, nausea, vomit, diarrhea and constipation. Denies dysuria, urgency and hematuria. Allergies: None Past surgical history: Spinal fusion, laminectomy, left carpal tunnel Social history: Former smoker. No alcohol or drug use reported - Current Medication List Current Medications: Active Medications Acetaminophen (Tylenol -) 650 mg PO Q6H PRN PRN Reason: FEVER OR PAIN Diazepam (Valium -) 2 mg PO Q8H PRN Fentanyl (Sublimaze Injection -) 50 mcg IVPUSH [id number] PRN PRN Reason: PAIN Stop: 08/23/17 19:34 Last Admin: 08/20/17 20:10 Dose: 50 mcg Lactated Ringer's (Lactated Ringers Solution) 1,000 mls @ 125 mls/hr IV ASDIR [facility] Last Admin: 08/20/17 20:45 Dose: 125 mls/hr Lidocaine (Lidoderm Patch -) 2 patch TP DAILY [facility] Losartan Potassium (Cozaar -) 50 mg PO DAILY [facility] Miscellaneous (Lidoderm Patch Removal) 1 each MC DAILY@2200 [facility] Last Admin: 08/20/17 21:48 Dose: 1 each Morphine Sulfate (Morphine Sulfate) 2 mg IVPUSH Q4H PRN PRN Reason: PAIN Last Admin: 08/21/17 08:28 Dose: 2 mg Nebivolol (Bystolic -) 10 mg PO DAILY [facility] Ondansetron HCl (Zofran Injection) 4 mg IVPUSH Q6H PRN PRN Reason: NAUSEA AND/OR VOMITING Oxycodone HCl (Roxicodone -) 10 mg PO Q4H PRN PRN Reason: PAIN Polyethylene Glycol (Miralax (For Daily Use) -) 17 gm PO TID [facility] Last Admin: 08/21/17 05:46 Dose: Not Given Pregabalin (Lyrica -) 25 mg PO BID [facility] Last Admin: 08/20/17 21:49 Dose: 25 mg Senna (Senna -) 2 tab PO HS [facility] Last Admin: 08/20/17 21:49 Dose: 2 tab - Objective Vital Signs: Vital Signs Temperature 98.0 F 08/21/17 06:00 Pulse Rate 77 08/21/17 06:00 Respiratory Rate 20 08/21/17 06:00 Blood Pressure 105/52 08/21/17 06:00 O2 Sat by Pulse Oximetry (%) 100 08/20/17 21:00 Eyes: Yes: WNL, Conjunctiva Clear, EOM Intact HENT: Yes: WNL, Atraumatic, Normocephalic Neck: Yes: WNL, Supple, Trachea Midline Cardiovascular: Yes: WNL, Regular Rate and Rhythm Respiratory: Yes: WNL, Regular, CTA Bilaterally Gastrointestinal: Yes: WNL, Normal Bowel Sounds Genitourinary: Yes: WNL Musculoskeletal: Yes: WNL Extremities: Yes: WNL Edema: No Integumentary: Yes: WNL Neurological: Yes: WNL, Alert, Oriented ...Motor Strength: WNL Psychiatric: Yes: WNL Labs: CBC, BMP 08/16/17 06:25 INR, PTT INR 1.06 (0.82-1.09) 08/20/17 06:40 Assessment/Plan - Problems (1) Dehydration Code(s): E86.0 - DEHYDRATION (2) Elevated INR Assessment/Plan: warfarin held pending kyphoplasty. Code(s): R79.1 - ABNORMAL COAGULATION PROFILE (3) Hyponatremia Assessment/Plan: Na 126-->131 over the past several days; not on diuretic. Code(s): E87.1 - HYPO-OSMOLALITY AND HYPONATREMIA (4) Syncope and collapse Assessment/Plan: Sycnope after urination; another episode last night. orthostatic VS checks. Avoid dehydrtion. ECHO: normal LVEF; severe MR and TR. Remains in severe pain from back spasms (compression fractures); weak from many days in bed. F/u with neurologist. Code(s): R55 - SYNCOPE AND COLLAPSE (5) GERD (gastroesophageal reflux disease) Assessment/Plan: also has large hiatal hernia. Code(s): K21.9 - GASTRO-ESOPHAGEAL REFLUX DISEASE WITHOUT ESOPHAGITIS (6) HLD (hyperlipidemia) Assessment/Plan: HDL 120; LDL 74; trigly 69 mg/dL. Code(s): E78.5 - HYPERLIPIDEMIA, UNSPECIFIED (7) HTN (hypertension) Assessment/Plan: on Bystolic and losartan; BP better-controlled. Code(s): I10 - ESSENTIAL (PRIMARY) HYPERTENSION Qualifiers: Hypertension type: essential hypertension Qualified Code(s): I10 - Essential (primary) hypertension; I10 - Essential (primary) hypertension; I10 - Essential (primary) hypertension (8) Back spasm Assessment/Plan: severe, unrelenting pain. Pain management in progress; on morphine, and Lidocaine patch; has been on Toradol. For kyphoplasty. Code(s): M62.830 - MUSCLE SPASM OF BACK (9) Paroxysmal atrial fibrillation Assessment/Plan: on Bystolic for HR and BP. On warfarin; held pending kyphoplasty. Resaart TOYA (with IV heparin or lovenox until INR again 2-3). Code(s): I48.0 - PAROXYSMAL ATRIAL FIBRILLATION
[2017-08-21 09:22] LABS: ANION GAP 6 (8-16); CALCIUM 8.1 mg/dL (8.5-10.1); CO2 30 mmol/L (21-32); CREATININE 0.5 mg/dL (0.55-1.02); GLUCOSE,RANDOM 82 mg/dL (74-106)
[2017-08-21] MEDS: LIDOCAINE 5% TOPICAL PATCH TP SCH (09:23)
[2017-08-21] MEDS: NEBIVOLOL 10 MG TABLET (FP) PO SCH (09:26)
[2017-08-21] MEDS: PREGABALIN 25 MG CAPSULE PO SCH ×2 (09:26→21:47)
[2017-08-21] MEDS: LOSARTAN POTASSIUM 50 MG TABLET (FP) PO SCH (09:26)
--- NOTE | 2017-08-21 09:35 | OPR ---
OPERATIVE REPORT DATE: 08-20-2017 Surgeon: Pito Herbert MD Preoperative Diagnosis: 1. Acute Pathologic Compression Fracture at T8 and T11 2. Primary osteoprosis Postoperative Diagnosis: Same Anesthesia: MAC sedation with IV propofol Procedure: 1.KYPHON Balloon Kyphoplasty at T8 and T11 level 2.Insertion of KYPHON bone cement under low pressure at T8 and T11 Biopsy was performed of the vertebral body Complications: None Blood Loss: Minimal Assessment: Mrs Vaughan is a 86-year-old who has had severe back pain that began approximately 6 weeks ago and is debilitating. The patient has been unresponsive to nonoperative treatment modalities including bed rest and analgesics. The patient presents with and is on medication therapy for afib. Radiographic imaging including CT scan thoracic spine confirms acute compression fracture of the T8 and T11 vertebral body. The procedure was explained to the patient. The risks and benefits were explained including but not limited to bleeding, infection, nerve injury, headaches, and worsening of pain. All questions have been answered and informed consent granted. PROCEDURE: The patient was brought to the operating room and MAC sedation was performed. The patient was positioned prone on the OR table. The back was prepped and draped. The image intensifier (C-arm) was brought into position and the right T8 pedicle was identified and marked with a skin marker. In view of the collapse , a transpedicular approach to the vertebral body was appropriate. A spinal 22Gauge needle was inserted to the pedicle of the vertebral body. After negative aspiration, 8cc 0.25% Marcaine was injected at each pedicle. A stab incision was made 1cm lateral and superior to pedicle. A 10--gauge trochar was advanced through the pedicle to the junction of the pedicle and vertebral body. Positioning was confirmed on the AP and lateral plane. Once the trochar was at the junction of the pedicle and the vertebral body, a lateral image was taken to insure that the cannula was positioned approximately 1cm past the vertebral body wall.. A similar technique was performed at the left side of the T11 vertebral body.. A biopsy of the vertebral body was taken through the cannula.. After completing the entry into the vertebral body, a 15 mm inflatable bone tamp was inserted through the cannula and advanced under fluoroscopic guidance into the vertebral body near the anterior cortex. The radiopaque marker bands on the one tamp were identified using AP and lateral images. Once the bone tamp was in position, it was inflated to 0.5 cc and 50 psi. Expansion of the bone tamps was done sequentially in increments of 0.25 to 0.5 cc of contrast, with careful attention being paid to the inflation pressures and balloon position. The inflation was monitored with AP and lateral imaging. The final balloon volume was 2 cc. There was no breach of the lateral wall or anterior cortex of the vertebral body. Direct reduction of the fracture was achieved, end plate movement was noted and approximately 5 mm of height adventist was achieved. Under fluoroscopic imaging, and the use of the bone void fillers, internal fixation was achieved through a low-pressure injection of KYPHON bone cement. The cavity was filled with a total volume of 2 cc.. A similar technique was performed at the left side of the T11 vertebral body. The final balloon volume was 1cc. There was no breach of the lateral wall or anterior cortex of the vertebral body. Under fluoroscopic imaging, and the use of the bone void fillers, internal fixation was achieved through a low-pressure injection of KYPHON HV-R bone cement. The cavity was filled with a total volume of 1cc. Once the bone cement had hardened, the cannulas were then removed. There was some cement which centered around the posterior vertebral body, but NO cement into the spinal canal.. Once the bone cement had hardened, the cannulas were then removed. Throughout the procedure, AP and lateral imaging monitored positioning. Post-procedure, all incisions were closed with steristrips. The patient was kept in the prone position for approximately 30 minutes post cement injection. The patient was then turned supine, monitored briefly and returned to the recovery room. The patient was moving both lower extremities at this time. Throughout the procedure, there were no intraoperative complications. Estimated blood loss was minimal. A spine xray was performed post procedure which showed no cement extrusion. Pito Herbert M.D. Board Certified Assistant Technician.
--- NOTE | 2017-08-21 11:29 | PN ---
Progress Note, Physician History of Present Illness: Feels a little better, notes difficult to tell pain level yet as she has not been out of bed. Noted by pain managmenet that can restart AC after 7:30 tonight (24h post-procedure) - Current Medication List Current Medications: Active Medications Acetaminophen (Tylenol -) 650 mg PO Q6H PRN PRN Reason: FEVER OR PAIN Diazepam (Valium -) 2 mg PO Q8H PRN Fentanyl (Sublimaze Injection -) 50 mcg IVPUSH [id number] PRN PRN Reason: PAIN Stop: 08/23/17 19:34 Last Admin: 08/20/17 20:10 Dose: 50 mcg Lactated Ringer's (Lactated Ringers Solution) 1,000 mls @ 125 mls/hr IV ASDIR [facility] Last Admin: 08/20/17 20:45 Dose: 125 mls/hr Lidocaine (Lidoderm Patch -) 2 patch TP DAILY [facility] Last Admin: 08/21/17 09:23 Dose: 2 patch Losartan Potassium (Cozaar -) 50 mg PO DAILY [facility] Last Admin: 08/21/17 09:26 Dose: 50 mg Miscellaneous (Lidoderm Patch Removal) 1 each MC DAILY@2200 [facility] Last Admin: 08/20/17 21:48 Dose: 1 each Morphine Sulfate (Morphine Sulfate) 2 mg IVPUSH Q4H PRN PRN Reason: PAIN Last Admin: 08/21/17 08:28 Dose: 2 mg Nebivolol (Bystolic -) 10 mg PO DAILY [facility] Last Admin: 08/21/17 09:26 Dose: 10 mg Ondansetron HCl (Zofran Injection) 4 mg IVPUSH Q6H PRN PRN Reason: NAUSEA AND/OR VOMITING Oxycodone HCl (Roxicodone -) 10 mg PO Q4H PRN PRN Reason: PAIN Polyethylene Glycol (Miralax (For Daily Use) -) 17 gm PO TID [facility] Last Admin: 08/21/17 05:46 Dose: Not Given Pregabalin (Lyrica -) 25 mg PO BID [facility] Last Admin: 08/21/17 09:26 Dose: 25 mg Senna (Senna -) 2 tab PO HS [facility] Last Admin: 08/20/17 21:49 Dose: 2 tab - Objective Vital Signs: Vital Signs Temperature 98.0 F 08/21/17 06:00 Pulse Rate 77 08/21/17 06:00 Respiratory Rate 20 08/21/17 06:00 Blood Pressure 105/52 08/21/17 06:00 O2 Sat by Pulse Oximetry (%) 100 08/20/17 21:00 Constitutional: Yes: No Distress, Calm HENT: Yes: Atraumatic, Normocephalic Neck: Yes: Supple, Trachea Midline Cardiovascular: Yes: Regular Rate and Rhythm, S1, S2. No: Murmur Respiratory: Yes: Regular, CTA Bilaterally. No: Rales, Rhonchi, Wheezes Gastrointestinal: Yes: Normal Bowel Sounds, Soft. No: Distention, Tenderness Edema: No Labs: CBC, BMP 08/16/17 06:25 08/21/17 07:30 INR, PTT INR 1.08 (0.82-1.09) 08/21/17 07:30 Assessment/Plan Current Active Problems Acute pain (Acute) Afib (Acute) Back spasm (Acute) Compression fracture of body of thoracic vertebra (Acute) s/p Kyphoplasty Dehydration (Acute) Dilated bile duct (Acute) Elevated INR (Acute) Hematuria (Acute) Hyperkalemia (Acute) Hyponatremia (Acute) Nausea & vomiting (Acute) Paroxysmal atrial fibrillation (Acute) Syncope and collapse (Acute) Vomiting (Acute) -cotn pain management, PT eval -will start Lovenox tonight (10pm) and resume coumadin tomorrow
--- NOTE | 2017-08-21 11:31 | PN ---
Progress Note (short form) - Note Progress Note: Anesthesia post op note POD#1. S/P Kyphoplasty. Pat seen and examined. VSS. No apparent post anesthesia complications.Signed off.
[2017-08-21] MEDS: LACTATED RINGERS SOLUTION 1,000 ML IV SCH (16:00)
[2017-08-21] MEDS: diazePAM 2 MG TABLET PO PRN (21:47)
[2017-08-21] MEDS: ENOXAPARIN NA (PORCINE) 60 MG/0.6 ML DISP.SYRIN SQ SCH (21:47)
[2017-08-21] MEDS: SENNOSIDES 8.6MG TABLET (FP) PO SCH (21:47)
[2017-08-21] MEDS: LIDOCAINE PATCH REMOVAL MC SCH (21:48)
[2017-08-22] MEDS: morphine CARPU-JECT 8 MG/1 ML DISP.SYRIN IVPUSH PRN (00:05)
[2017-08-22] MEDS: POLYETHYLENE GLYCOL 3350 119 GM BTL PO SCH ×3 (05:12→22:10)
[2017-08-22 08:51] LABS: BASOPHIL 0.8 % (0-2.0); EOSINOPHIL 3.4 % (0-4.5); MCH 27.7 pg (25.7-33.7); MCHC 32.7 g/dl (32.0-36.0); MEAN CELL VOLUME 84.8 fl (80-96); MEAN PLT VOLUME 7.4 fl (7.5-11.1); NEUTROPHILS 42.9 % (42.8-82.8); PLATELET COUNT 310 K/MM3 (134-434); RDW 21.8 % (11.6-15.6); WHITE BLOOD COUNT 5.7 K/mm3 (4.0-10.0)
--- NOTE | 2017-08-22 08:53 | PN ---
Progress Note, Physician History of Present Illness: The patient is a 86 year old female brought via EMS, with a significant past medical history of chronic anemia (Iron Infusions twice a month), ulcerate esophagous, IBS, HTN and HLD, who presents to the emergency department after a syncopal episode today. EMS notes that the patient was on a camode urinating when she syncopized and fell forward. She remained unresponsive for 2 minutes before becoming alert and oriented x4. She currently complains of back spasms which range from mild to moderate. It is noted that the patient was in the ED yesterday for back spasms as well, for which she was discharged after improvement of symptoms. This counts as day 4 of her back spasms. She also complaints of frequency associated with her chief complaint. The patient denies chest pain, shortness of breath, headache and dizziness. Denies fever, chills, nausea, vomit, diarrhea and constipation. Denies dysuria, urgency and hematuria. Allergies: None Past surgical history: Spinal fusion, laminectomy, left carpal tunnel Social history: Former smoker. No alcohol or drug use reported - Current Medication List Current Medications: Active Medications Acetaminophen (Tylenol -) 650 mg PO Q6H PRN PRN Reason: FEVER OR PAIN Diazepam (Valium -) 2 mg PO Q8H PRN Last Admin: 08/21/17 21:47 Dose: 2 mg Enoxaparin Sodium (Lovenox -) 60 mg SQ Q12H [facility] Last Admin: 08/21/17 21:47 Dose: 60 mg Fentanyl (Sublimaze Injection -) 50 mcg IVPUSH [id number] PRN PRN Reason: PAIN Stop: 08/23/17 19:34 Last Admin: 08/20/17 20:10 Dose: 50 mcg Lidocaine (Lidoderm Patch -) 2 patch TP DAILY [facility] Last Admin: 08/21/17 09:23 Dose: 2 patch Losartan Potassium (Cozaar -) 50 mg PO DAILY [facility] Last Admin: 08/21/17 09:26 Dose: 50 mg Miscellaneous (Lidoderm Patch Removal) 1 each MC DAILY@2200 [facility] Last Admin: 08/21/17 21:48 Dose: 1 each Morphine Sulfate (Morphine Sulfate) 2 mg IVPUSH Q4H PRN PRN Reason: PAIN Last Admin: 08/22/17 00:05 Dose: 2 mg Nebivolol (Bystolic -) 10 mg PO DAILY [facility] Last Admin: 08/21/17 09:26 Dose: 10 mg Ondansetron HCl (Zofran Injection) 4 mg IVPUSH Q6H PRN PRN Reason: NAUSEA AND/OR VOMITING Oxycodone HCl (Roxicodone -) 10 mg PO Q4H PRN PRN Reason: PAIN Polyethylene Glycol (Miralax (For Daily Use) -) 17 gm PO TID [facility] Last Admin: 08/22/17 05:12 Dose: 17 gm Pregabalin (Lyrica -) 25 mg PO BID [facility] Last Admin: 08/21/17 21:47 Dose: 25 mg Senna (Senna -) 2 tab PO HS [facility] Last Admin: 08/21/17 21:47 Dose: Not Given Warfarin Sodium (Coumadin -) 5 mg PO DAILY@1800 [facility] - Objective Vital Signs: Vital Signs Temperature 98.5 F 08/22/17 06:00 Pulse Rate 68 08/22/17 06:00 Respiratory Rate 18 08/22/17 06:00 Blood Pressure 127/62 08/22/17 06:00 O2 Sat by Pulse Oximetry (%) 97 08/21/17 21:00 Eyes: Yes: WNL, Conjunctiva Clear, EOM Intact HENT: Yes: WNL, Atraumatic, Normocephalic Neck: Yes: WNL, Supple, Trachea Midline Cardiovascular: Yes: WNL, Regular Rate and Rhythm, Murmur, S1, S2 Respiratory: Yes: WNL, Regular, CTA Bilaterally Gastrointestinal: Yes: WNL, Normal Bowel Sounds Genitourinary: Yes: WNL Musculoskeletal: Yes: WNL Extremities: Yes: WNL Edema: No Integumentary: Yes: WNL Neurological: Yes: WNL, Alert, Oriented ...Motor Strength: WNL Psychiatric: Yes: WNL Labs: INR, PTT INR 1.08 (0.82-1.09) 08/21/17 07:30 Assessment/Plan - Problems (1) Dehydration Code(s): E86.0 - DEHYDRATION (2) Elevated INR Assessment/Plan: warfarin held pending kyphoplasty. Code(s): R79.1 - ABNORMAL COAGULATION PROFILE (3) Hyponatremia Assessment/Plan: Na 126-->131 over the past several days; not on diuretic. Code(s): E87.1 - HYPO-OSMOLALITY AND HYPONATREMIA (4) Syncope and collapse Assessment/Plan: Sycnope after urination; another episode last night. orthostatic VS checks. Avoid dehydrtion. ECHO: normal LVEF; severe MR and TR. Remains in severe pain from back spasms (compression fractures); weak from many days in bed. F/u with neurologist. Code(s): R55 - SYNCOPE AND COLLAPSE (5) GERD (gastroesophageal reflux disease) Assessment/Plan: also has large hiatal hernia. Code(s): K21.9 - GASTRO-ESOPHAGEAL REFLUX DISEASE WITHOUT ESOPHAGITIS (6) HLD (hyperlipidemia) Assessment/Plan: HDL 120; LDL 74; trigly 69 mg/dL. Code(s): E78.5 - HYPERLIPIDEMIA, UNSPECIFIED (7) HTN (hypertension) Assessment/Plan: on Bystolic and losartan; BP better-controlled. Code(s): I10 - ESSENTIAL (PRIMARY) HYPERTENSION Qualifiers: Hypertension type: essential hypertension Qualified Code(s): I10 - Essential (primary) hypertension; I10 - Essential (primary) hypertension; I10 - Essential (primary) hypertension (8) Back spasm Assessment/Plan: severe, unrelenting pain. Pain management in progress; on morphine, and Lidocaine patch; has been on Toradol. For kyphoplasty. Code(s): M62.830 - MUSCLE SPASM OF BACK (9) Paroxysmal atrial fibrillation Assessment/Plan: on Bystolic for HR and BP. On warfarin; held pending kyphoplasty. Resaart TOYA (with IV heparin or lovenox until INR again 2-3). Code(s): I48.0 - PAROXYSMAL ATRIAL FIBRILLATION
--- NOTE | 2017-08-22 08:55 | PN ---
Progress Note, Physician History of Present Illness: The patient is a 86 year old female brought via EMS, with a significant past medical history of chronic anemia (Iron Infusions twice a month), ulcerate esophagous, IBS, HTN and HLD, who presents to the emergency department after a syncopal episode today. EMS notes that the patient was on a camode urinating when she syncopized and fell forward. She remained unresponsive for 2 minutes before becoming alert and oriented x4. She currently complains of back spasms which range from mild to moderate. It is noted that the patient was in the ED yesterday for back spasms as well, for which she was discharged after improvement of symptoms. This counts as day 4 of her back spasms. She also complaints of frequency associated with her chief complaint. The patient denies chest pain, shortness of breath, headache and dizziness. Denies fever, chills, nausea, vomit, diarrhea and constipation. Denies dysuria, urgency and hematuria. Allergies: None Past surgical history: Spinal fusion, laminectomy, left carpal tunnel Social history: Former smoker. No alcohol or drug use reported - Current Medication List Current Medications: Active Medications Acetaminophen (Tylenol -) 650 mg PO Q6H PRN PRN Reason: FEVER OR PAIN Diazepam (Valium -) 2 mg PO Q8H PRN Last Admin: 08/21/17 21:47 Dose: 2 mg Enoxaparin Sodium (Lovenox -) 60 mg SQ Q12H [facility] Last Admin: 08/21/17 21:47 Dose: 60 mg Fentanyl (Sublimaze Injection -) 50 mcg IVPUSH [id number] PRN PRN Reason: PAIN Stop: 08/23/17 19:34 Last Admin: 08/20/17 20:10 Dose: 50 mcg Lidocaine (Lidoderm Patch -) 2 patch TP DAILY [facility] Last Admin: 08/21/17 09:23 Dose: 2 patch Losartan Potassium (Cozaar -) 50 mg PO DAILY [facility] Last Admin: 08/21/17 09:26 Dose: 50 mg Miscellaneous (Lidoderm Patch Removal) 1 each MC DAILY@2200 [facility] Last Admin: 08/21/17 21:48 Dose: 1 each Morphine Sulfate (Morphine Sulfate) 2 mg IVPUSH Q4H PRN PRN Reason: PAIN Last Admin: 08/22/17 00:05 Dose: 2 mg Nebivolol (Bystolic -) 10 mg PO DAILY [facility] Last Admin: 08/21/17 09:26 Dose: 10 mg Ondansetron HCl (Zofran Injection) 4 mg IVPUSH Q6H PRN PRN Reason: NAUSEA AND/OR VOMITING Oxycodone HCl (Roxicodone -) 10 mg PO Q4H PRN PRN Reason: PAIN Polyethylene Glycol (Miralax (For Daily Use) -) 17 gm PO TID [facility] Last Admin: 08/22/17 05:12 Dose: 17 gm Pregabalin (Lyrica -) 25 mg PO BID [facility] Last Admin: 08/21/17 21:47 Dose: 25 mg Senna (Senna -) 2 tab PO HS [facility] Last Admin: 08/21/17 21:47 Dose: Not Given Warfarin Sodium (Coumadin -) 5 mg PO DAILY@1800 [facility] - Objective Vital Signs: Vital Signs Temperature 98.5 F 08/22/17 06:00 Pulse Rate 68 08/22/17 06:00 Respiratory Rate 18 08/22/17 06:00 Blood Pressure 127/62 08/22/17 06:00 O2 Sat by Pulse Oximetry (%) 97 08/21/17 21:00 Eyes: Yes: WNL, Conjunctiva Clear, EOM Intact HENT: Yes: WNL, Atraumatic, Normocephalic Neck: Yes: WNL, Supple, Trachea Midline Cardiovascular: Yes: WNL, Regular Rate and Rhythm Respiratory: Yes: WNL, Regular, CTA Bilaterally Gastrointestinal: Yes: WNL, Normal Bowel Sounds Genitourinary: Yes: WNL Musculoskeletal: Yes: WNL Extremities: Yes: WNL Edema: No Integumentary: Yes: WNL Neurological: Yes: WNL, Alert, Oriented ...Motor Strength: WNL Psychiatric: Yes: WNL Labs: CBC, BMP 08/22/17 07:00 INR, PTT INR 1.08 (0.82-1.09) 08/21/17 07:30 Assessment/Plan - Problems Compression fracture of body of thoracic vertebra (Acute) s/p Kyphoplasty awaiting picc line (1) Dehydration Code(s): E86.0 - DEHYDRATION (2) Elevated INR Assessment/Plan: warfarin held pending kyphoplasty. Code(s): R79.1 - ABNORMAL COAGULATION PROFILE (3) Hyponatremia Assessment/Plan: resolved Code(s): E87.1 - HYPO-OSMOLALITY AND HYPONATREMIA (4) Syncope and collapse Assessment/Plan: Sycnope after urination; another episode last night. orthostatic VS checks. Avoid dehydrtion. ECHO: normal LVEF; severe MR and TR. Remains in severe pain from back spasms (compression fractures); weak from many days in bed. F/u with neurologist. Code(s): R55 - SYNCOPE AND COLLAPSE (5) GERD (gastroesophageal reflux disease) Assessment/Plan: also has large hiatal hernia. Code(s): K21.9 - GASTRO-ESOPHAGEAL REFLUX DISEASE WITHOUT ESOPHAGITIS (6) HLD (hyperlipidemia) Assessment/Plan: HDL 120; LDL 74; trigly 69 mg/dL. Code(s): E78.5 - HYPERLIPIDEMIA, UNSPECIFIED (7) HTN (hypertension) Assessment/Plan: on Bystolic and losartan; BP better-controlled. Code(s): I10 - ESSENTIAL (PRIMARY) HYPERTENSION Qualifiers: Hypertension type: essential hypertension Qualified Code(s): I10 - Essential (primary) hypertension; I10 - Essential (primary) hypertension; I10 - Essential (primary) hypertension (8) Back spasm Assessment/Plan: severe, unrelenting pain. Pain management in progress; on morphine, and Lidocaine patch; has been on Toradol. For kyphoplasty. Code(s): M62.830 - MUSCLE SPASM OF BACK (9) Paroxysmal atrial fibrillation Assessment/Plan: on Bystolic for HR and BP. lovonox to warfarin; bridging
[2017-08-22 09:17] LABS: ANION GAP 8 (8-16); CALCIUM 8.3 mg/dL (8.5-10.1); CO2 29 mmol/L (21-32); GLUCOSE,RANDOM 81 mg/dL (74-106)
[2017-08-22 09:19] LABS: CREATININE 0.4 mg/dL (0.55-1.02)
[2017-08-22 09:44] LABS: INR 1.05 (0.82-1.09); PROTHROMBIN TIME (PATIENT) 11.9 SEC (9.98-11.88)
--- NOTE | 2017-08-22 11:09 | PN ---
Progress Note, Physician History of Present Illness: Patient having less back spasms today. Has not gotten up out of bed yet. Tolerating diet OK. Lovenox started last night, coumadin to start today. - Current Medication List Current Medications: Active Medications Acetaminophen (Tylenol -) 650 mg PO Q6H PRN PRN Reason: FEVER OR PAIN Diazepam (Valium -) 2 mg PO Q8H PRN Last Admin: 08/21/17 21:47 Dose: 2 mg Enoxaparin Sodium (Lovenox -) 60 mg SQ Q12H [facility] Last Admin: 08/21/17 21:47 Dose: 60 mg Fentanyl (Sublimaze Injection -) 50 mcg IVPUSH [id number] PRN PRN Reason: PAIN Stop: 08/23/17 19:34 Last Admin: 08/20/17 20:10 Dose: 50 mcg Lidocaine (Lidoderm Patch -) 2 patch TP DAILY [facility] Last Admin: 08/21/17 09:23 Dose: 2 patch Losartan Potassium (Cozaar -) 50 mg PO DAILY [facility] Last Admin: 08/21/17 09:26 Dose: 50 mg Miscellaneous (Lidoderm Patch Removal) 1 each MC DAILY@2200 [facility] Last Admin: 08/21/17 21:48 Dose: 1 each Morphine Sulfate (Morphine Sulfate) 2 mg IVPUSH Q4H PRN PRN Reason: PAIN Last Admin: 08/22/17 00:05 Dose: 2 mg Nebivolol (Bystolic -) 10 mg PO DAILY [facility] Last Admin: 08/21/17 09:26 Dose: 10 mg Ondansetron HCl (Zofran Injection) 4 mg IVPUSH Q6H PRN PRN Reason: NAUSEA AND/OR VOMITING Oxycodone HCl (Roxicodone -) 10 mg PO Q4H PRN PRN Reason: PAIN Polyethylene Glycol (Miralax (For Daily Use) -) 17 gm PO TID [facility] Last Admin: 08/22/17 05:12 Dose: 17 gm Pregabalin (Lyrica -) 25 mg PO BID [facility] Last Admin: 08/21/17 21:47 Dose: 25 mg Senna (Senna -) 2 tab PO HS [facility] Last Admin: 08/21/17 21:47 Dose: Not Given Warfarin Sodium (Coumadin -) 5 mg PO DAILY@1800 [facility] - Objective Vital Signs: Vital Signs Temperature 98.5 F 08/22/17 06:00 Pulse Rate 68 08/22/17 06:00 Respiratory Rate 18 08/22/17 06:00 Blood Pressure 127/62 08/22/17 06:00 O2 Sat by Pulse Oximetry (%) 97 08/21/17 21:00 Constitutional: Yes: No Distress, Calm Neck: Yes: Supple, Trachea Midline Cardiovascular: Yes: Pulse Irregular, S1, S2. No: Murmur Respiratory: Yes: Regular, CTA Bilaterally. No: Rales, Rhonchi, Wheezes Gastrointestinal: Yes: Normal Bowel Sounds, Soft. No: Distention, Tenderness Edema: No Labs: CBC, BMP 08/22/17 07:00 08/22/17 07:00 INR, PTT INR 1.05 (0.82-1.09) 08/22/17 07:00 Assessment/Plan Current Active Problems Acute pain (Acute) Afib (Acute) Back spasm (Acute) Compression fracture of body of thoracic vertebra (Acute) s/p Kyphoplasty Dehydration (Acute) Dilated bile duct (Acute) Elevated INR (Acute) Hematuria (Acute) Hyperkalemia (Acute) Hyponatremia (Acute) Nausea & vomiting (Acute) Paroxysmal atrial fibrillation (Acute) Syncope and collapse (Acute) Vomiting (Acute) -cont pain management, Physical therapy -Lovenox bridging to coumadin
[2017-08-22 11:43] LABS: PLATELET ESTIMATE ADEQUATE (NORMAL)
[2017-08-22 11:44] LABS: MACROCYTOSIS 3+; MICROCYTOSIS 2+
[2017-08-22] MEDS: PREGABALIN 25 MG CAPSULE PO SCH ×2 (11:44→22:10)
[2017-08-22] MEDS: ENOXAPARIN NA (PORCINE) 60 MG/0.6 ML DISP.SYRIN SQ SCH ×2 (11:44→22:09)
[2017-08-22] MEDS: LOSARTAN POTASSIUM 50 MG TABLET (FP) PO SCH (11:45)
[2017-08-22] MEDS: NEBIVOLOL 10 MG TABLET (FP) PO SCH (11:45)
[2017-08-22] MEDS: LIDOCAINE 5% TOPICAL PATCH TP SCH (11:46)
[2017-08-22] MEDS ORDERED: PT OWN MED DRAWER 7, Y5N ONE (13:37)
[2017-08-22] MEDS: diazePAM 2 MG TABLET PO PRN ×2 (13:39→22:10)
[2017-08-22] MEDS: WARFARIN NA 5 MG TABLET (UD) PO SCH (18:03)
[2017-08-22] MEDS: oxyCODONE HCL 5 MG TABLET PO PRN (18:55)
[2017-08-22] MEDS: ACETAMINOPHEN 325 MG TABLET (FP) PO PRN (18:57)
[2017-08-22] MEDS: LIDOCAINE PATCH REMOVAL MC SCH (22:10)
[2017-08-22] MEDS: SENNOSIDES 8.6MG TABLET (FP) PO SCH (22:10)
[2017-08-23] MEDS: oxyCODONE HCL 5 MG TABLET PO PRN ×2 (02:01→17:20)
[2017-08-23] MEDS: POLYETHYLENE GLYCOL 3350 119 GM BTL PO SCH ×3 (06:19→22:23)
[2017-08-23 08:42] LABS: INR 1.04 (0.82-1.09); PROTHROMBIN TIME (PATIENT) 11.8 SEC (9.98-11.88)
[2017-08-23] MEDS: LIDOCAINE 5% TOPICAL PATCH TP SCH (09:11)
[2017-08-23] MEDS: ENOXAPARIN NA (PORCINE) 60 MG/0.6 ML DISP.SYRIN SQ SCH ×2 (09:11→22:23)
[2017-08-23] MEDS: NEBIVOLOL 10 MG TABLET (FP) PO SCH (09:11)
[2017-08-23] MEDS: PREGABALIN 25 MG CAPSULE PO SCH ×2 (09:11→22:24)
[2017-08-23] MEDS: LOSARTAN POTASSIUM 50 MG TABLET (FP) PO SCH (09:12)
--- NOTE | 2017-08-23 10:11 | PN ---
Progress Note (short form) - Note Progress Note: Neurology History of Present Illness The patient is a 86 year old female brought via EMS, with a significant past medical history of chronic anemia (Iron Infusions twice a month), ulcerate esophagous, IBS, HTN and HLD, who presents to the emergency department after a syncopal episode. EMS noted that the patient was on a camode urinating when she syncopized and fell forward. Reportedly was unresponsive then becoming alert and oriented x4. She currently complains of back spasms which range from mild to moderate. Her son was at the bedside and confirmed history. She has prior syncope but last one was 3 years ago. She completed CT head which did not show acute changes. There was chronic L frontal sinus disease. CT thorax and chest compelted and did not show aneurysm or dissection, large hernia noted, ? biliary stricturing. Neurologic exam was nonfocal and patient mental status at baseline. Son reported she had injection in her back by Dr. escobar with relief in the past. CT T spine which was reviewed and showed compression fracture at T11, mild compression fracture noted at T8 as well. Bone scan completed and reviewed and indicated the same. Reviewed Dr. Escobar note and compelted kyphoplasty and reports improved symtoms. More comfortable since but does have some burning pain and advised her that she is on lyrica which can help. Getting oxycodone which is also helping. Overall, she does feel better and discussed getting therapy and trying to have ambulation. Would be a good idea for her to go to rehab after this and she has a place in mind already where she had a good experience last year, [facility]. Active Medications Acetaminophen (Tylenol -) 650 mg PO Q6H PRN PRN Reason: FEVER OR PAIN Last Admin: 08/22/17 18:57 Dose: 650 mg Diazepam (Valium -) 2 mg PO Q8H PRN Last Admin: 08/22/17 22:10 Dose: 2 mg Enoxaparin Sodium (Lovenox -) 60 mg SQ Q12H [facility] Last Admin: 08/23/17 09:11 Dose: 60 mg Fentanyl (Sublimaze Injection -) 50 mcg IVPUSH [id number] PRN PRN Reason: PAIN Stop: 08/23/17 19:34 Last Admin: 08/20/17 20:10 Dose: 50 mcg Lidocaine (Lidoderm Patch -) 2 patch TP DAILY [facility] Last Admin: 08/23/17 09:11 Dose: 2 patch Losartan Potassium (Cozaar -) 50 mg PO DAILY [facility] Last Admin: 08/23/17 09:12 Dose: 50 mg Miscellaneous (Lidoderm Patch Removal) 1 each MC DAILY@2200 [facility] Last Admin: 08/22/17 22:10 Dose: 1 each Morphine Sulfate (Morphine Sulfate) 2 mg IVPUSH Q4H PRN PRN Reason: PAIN Last Admin: 08/22/17 00:05 Dose: 2 mg Nebivolol (Bystolic -) 10 mg PO DAILY [facility] Last Admin: 08/23/17 09:11 Dose: 10 mg Ondansetron HCl (Zofran Injection) 4 mg IVPUSH Q6H PRN PRN Reason: NAUSEA AND/OR VOMITING Oxycodone HCl (Roxicodone -) 10 mg PO Q4H PRN PRN Reason: PAIN Last Admin: 08/23/17 02:01 Dose: 10 mg Polyethylene Glycol (Miralax (For Daily Use) -) 17 gm PO TID [facility] Last Admin: 08/23/17 06:19 Dose: 17 gm Pregabalin (Lyrica -) 25 mg PO BID [facility] Last Admin: 08/23/17 09:11 Dose: 25 mg Senna (Senna -) 2 tab PO HS [facility] Last Admin: 08/22/17 22:10 Dose: Not Given Warfarin Sodium (Coumadin -) 5 mg PO DAILY@1800 [facility] Last Admin: 08/22/17 18:03 Dose: 5 mg *Physical Exam Vital Signs Period Temp Pulse Resp BP Sys/Ying Pulse Ox Last 24 Hr 97.5 F-98.1 F 69-92 16-20 92-127/47-66 97 GENERAL: Awake, alert, and fully oriented, in no acute distress HEAD: No signs of trauma, normocephalic, atraumatic EYES: PERRLA, EOMI, sclera anicteric, conjunctiva clear ENT: Auricles normal inspection, hearing grossly normal, nares patent, oropharynx clear without exudates. Moist mucosa NECK: Normal ROM, supple, no lymphadenopathy, JVD, or masses LUNGS: No distress, speaks full sentences, clear to auscultation bilaterally HEART: Regular rate and rhythm, normal S1 and S2, no murmurs, rubs or gallops, peripheral pulses normal and equal bilaterally. ABDOMEN: Soft, nontender, normoactive bowel sounds. No guarding, no rebound. No masses EXTREMITIES : Normal inspection, Normal range of motion, no edema. No clubbing or cyanosis. NEUROLOGICAL: Cranial nerves II through XII grossly intact. Normal speech, no focal sensorimotor deficits, finger to nose normal, gait was deferred CBC,CMP WBC 5.7 K/mm3 (4.0-10.0) D 08/22/17 07:00 RBC 4.18 M/mm3 (3.60-5.2) 08/22/17 07:00 Hgb 11.6 GM/dL (10.7-15.3) D 08/22/17 07:00 Hct 35.4 % (32.4-45.2) D 08/22/17 07:00 MCV 84.8 fl (80-96) 08/22/17 07:00 MCH 27.7 pg (25.7-33.7) 08/22/17 07:00 MCHC 32.7 g/dl (32.0-36.0) 08/22/17 07:00 RDW 21.8 % (11.6-15.6) H 08/22/17 07:00 Plt Count 310 K/MM3 (134-434) 08/22/17 07:00 MPV 7.4 fl (7.5-11.1) L 08/22/17 07:00 Neutrophils % 42.9 % (42.8-82.8) 08/22/17 07:00 Lymphocytes % 40.7 % (8-40) H 08/22/17 07:00 Monocytes % 12.2 % (3.8-10.2) H 08/22/17 07:00 Eosinophils % 3.4 % (0-4.5) D 08/22/17 07:00 Basophils % 0.8 % (0-2.0) 08/22/17 07:00 Hypochromia 1+ 08/15/17 05:35 Platelet Estimate Adequate (NORMAL) 08/22/17 07:00 Anisocytosis 3+ 08/15/17 05:35 Microcytosis 2+ 08/22/17 07:00 Macrocytosis 3+ 08/22/17 07:00 Sodium 136 mmol/L (136-145) 08/22/17 07:00 Potassium 4.3 mmol/L (3.5-5.1) 08/22/17 07:00 Chloride 99 mmol/L (98-107) 08/22/17 07:00 Carbon Dioxide 29 mmol/L (21-32) 08/22/17 07:00 Anion Gap 8 (8-16) 08/22/17 07:00 BUN 7 mg/dL (7-18) D 08/22/17 07:00 Creatinine 0.4 mg/dL (0.55-1.02) L 08/22/17 07:00 Creat Clearance w eGFR > 60 (>60) 08/10/17 23:27 POC Glucometer 110 UNITS (()) 08/19/17 23:23 Random Glucose 81 mg/dL (74-106) 08/22/17 07:00 Hemoglobin A1c % 5.6 % (4.8-6.0) 08/11/17 07:56 Calcium 8.3 mg/dL (8.5-10.1) L 08/22/17 07:00 Phosphorus 3.1 mg/dL (2.5-4.9) D 08/11/17 07:56 Magnesium 2.0 mg/dL (1.8-2.4) 08/11/17 07:56 Total Bilirubin 0.6 mg/dL (0.2-1.0) D 08/10/17 23:27 AST 25 U/L (15-37) D 08/10/17 23:27 ALT 31 U/L (12-78) D 08/10/17 23:27 Alkaline Phosphatase 84 U/L (45-117) 08/10/17 23:27 Creatine Kinase 306 IU/L (26-192) H 08/11/17 07:56 Creatine Kinase Index 2.2 % (0.0-5.0) 08/11/17 07:56 CK-MB (CK-2) 7.030 ng/mL (0.5-3.6) H 08/11/17 07:56 Troponin I < 0.02 ng/ml (0.00-0.05) 08/11/17 07:56 B-Natriuretic Peptide 1726.75 pg/ml (5-450) H 08/10/17 23:27 Total Protein 6.6 g/dl (6.4-8.2) 08/10/17 23:27 Albumin 3.8 g/dl (3.4-5.0) 08/10/17 23:27 Triglycerides 69 mg/dL (35-160) 08/11/17 07:56 Cholesterol 204 mg/dL (50-200) H 08/11/17 07:56 Total LDL Cholesterol 74 mg/dL (5-100) 08/11/17 07:56 HDL Cholesterol 120 mg/dL (40-60) H 08/11/17 07:56 TSH 0.86 uIU/ml (0.358-3.74) 08/11/17 01:51 - RADIOLOGY CT head and CT chest/thorax reviewed CT T spine reviewed Bone scan reviewed Plan 86 year old female brought via EMS, with a significant past medical history of chronic anemia (Iron Infusions twice a month), ulcerate esophagous, IBS, HTN and HLD, who presents to the emergency department after a syncopal episode. EMS noted that the patient was on a camode urinating when she syncopized and fell forward. CT head which did not show acute changes. CT thorax and chest completed and reviewed as well (did not show aneurysm or dissection, large hernia noted, ? biliary stricturing). CT T spine with compression fx as noted above Neurologic exam was nonfocal and patient mental status at baseline. Kyphoplasty completed and helpful Getting lyrica but neuropathic discomfort, can continue 25mg twice daily Physical therapy and ambulation as tolerated Avoid aggresive movements Pain control which has been limited by PO and IV medications Would benefit from rehab placement, has a facility in mind called [facility] where she had a good experience Fall precautions
--- NOTE | 2017-08-23 10:15 | PN ---
Progress Note (short form) - Note Progress Note: Patient seen and examined. her back pain is better after kyphoplasty Less spasms when turning in her lower back Anxious to start physical therapy today. Had bowel movement On exam: Vital Signs Temp 97.9 F 08/23/17 09:00 Pulse 78 08/23/17 09:00 Resp 18 08/23/17 09:00 BP 110/47 08/23/17 09:00 Pulse Ox 97 08/22/17 22:00 Intake & Output 08/22/17 08/22/17 08/23/17 11:59 23:59 11:59 Intake Total 415 700 150 Balance 415 700 150 Intake: Oral 415 700 150 Other: Voiding Method Bedpan Bedpan # Unmeasured Voids Void 1 1 2 Bowel Movement No patient alert Slightly pale Chest decreased breath sounds but clear. No back spasms when turning for an exam Abdomen soft Extremities no pedal edema Abnormal Lab Results 08/22/17 07:00 RDW 21.8 H MPV 7.4 L Lymphocytes % 40.7 H Monocytes % 12.2 H impression: Acute T8 and subacute T11 compression fractures thoracic spine Hypertension. Acute and chronic pain. DVT by history. Paroxysmal atrial fibrillation. History of lumbosacral disc surgery with fusion. Plan: Physical therapy today. Continue Coumadin at a higher dose than her normal for at least the next 48 hours Followup at SNF Problem List - Problems (1) Compression fracture of body of thoracic vertebra Code(s): M48.54XA - COLLAPSED VERTEBRA, NEC, THORACIC REGION, INIT (2) Back spasm Code(s): M62.830 - MUSCLE SPASM OF BACK (3) Elevated INR Code(s): R79.1 - ABNORMAL COAGULATION PROFILE (4) HTN (hypertension) Code(s): I10 - ESSENTIAL (PRIMARY) HYPERTENSION Qualifiers: Hypertension type: essential hypertension Qualified Code(s): I10 - Essential (primary) hypertension; I10 - Essential (primary) hypertension; I10 - Essential (primary) hypertension (5) Hyponatremia Code(s): E87.1 - HYPO-OSMOLALITY AND HYPONATREMIA (6) Acute pain Code(s): R52 - PAIN, UNSPECIFIED (7) Hematuria Code(s): R31.9 - HEMATURIA, UNSPECIFIED
[2017-08-23] MEDS: morphine CARPU-JECT 8 MG/1 ML DISP.SYRIN IVPUSH PRN ×2 (12:31→19:40)
--- NOTE | 2017-08-23 13:16 | PN ---
Progress Note, Physician History of Present Illness: The patient is a 86 year old female brought via EMS, with a significant past medical history of chronic anemia (Iron Infusions twice a month), ulcerate esophagous, IBS, HTN and HLD, who presents to the emergency department after a syncopal episode today. EMS notes that the patient was on a camode urinating when she syncopized and fell forward. She remained unresponsive for 2 minutes before becoming alert and oriented x4. She currently complains of back spasms which range from mild to moderate. It is noted that the patient was in the ED yesterday for back spasms as well, for which she was discharged after improvement of symptoms. This counts as day 4 of her back spasms. She also complaints of frequency associated with her chief complaint. The patient denies chest pain, shortness of breath, headache and dizziness. Denies fever, chills, nausea, vomit, diarrhea and constipation. Denies dysuria, urgency and hematuria. Allergies: None Past surgical history: Spinal fusion, laminectomy, left carpal tunnel Social history: Former smoker. No alcohol or drug use reported - Current Medication List Current Medications: Active Medications Acetaminophen (Tylenol -) 650 mg PO Q6H PRN PRN Reason: FEVER OR PAIN Last Admin: 08/22/17 18:57 Dose: 650 mg Diazepam (Valium -) 2 mg PO Q8H PRN Last Admin: 08/22/17 22:10 Dose: 2 mg Enoxaparin Sodium (Lovenox -) 60 mg SQ Q12H [facility] Last Admin: 08/23/17 09:11 Dose: 60 mg Fentanyl (Sublimaze Injection -) 50 mcg IVPUSH [id number] PRN PRN Reason: PAIN Stop: 08/23/17 19:34 Last Admin: 08/20/17 20:10 Dose: 50 mcg Lidocaine (Lidoderm Patch -) 2 patch TP DAILY [facility] Last Admin: 08/23/17 09:11 Dose: 2 patch Losartan Potassium (Cozaar -) 50 mg PO DAILY [facility] Last Admin: 08/23/17 09:12 Dose: 50 mg Miscellaneous (Lidoderm Patch Removal) 1 each MC DAILY@2200 [facility] Last Admin: 08/22/17 22:10 Dose: 1 each Morphine Sulfate (Morphine Sulfate) 2 mg IVPUSH Q4H PRN PRN Reason: PAIN Last Admin: 08/23/17 12:31 Dose: 2 mg Nebivolol (Bystolic -) 10 mg PO DAILY [facility] Last Admin: 08/23/17 09:11 Dose: 10 mg Ondansetron HCl (Zofran Injection) 4 mg IVPUSH Q6H PRN PRN Reason: NAUSEA AND/OR VOMITING Oxycodone HCl (Roxicodone -) 10 mg PO Q4H PRN PRN Reason: PAIN Last Admin: 08/23/17 02:01 Dose: 10 mg Polyethylene Glycol (Miralax (For Daily Use) -) 17 gm PO TID [facility] Last Admin: 08/23/17 06:19 Dose: 17 gm Pregabalin (Lyrica -) 25 mg PO BID [facility] Last Admin: 08/23/17 09:11 Dose: 25 mg Senna (Senna -) 2 tab PO HS [facility] Last Admin: 08/22/17 22:10 Dose: Not Given Warfarin Sodium (Coumadin -) 5 mg PO DAILY@1800 [facility] Last Admin: 08/22/17 18:03 Dose: 5 mg Warfarin Sodium (Coumadin -) 7.5 mg PO ONCE@1800 [facility] Stop: 08/23/17 18:01 - Objective Vital Signs: Vital Signs Temperature 97.9 F 08/23/17 09:00 Pulse Rate 78 08/23/17 09:00 Respiratory Rate 18 08/23/17 09:00 Blood Pressure 110/47 08/23/17 09:00 O2 Sat by Pulse Oximetry (%) 97 08/22/17 22:00 Eyes: Yes: WNL, Conjunctiva Clear, EOM Intact HENT: Yes: WNL, Atraumatic, Normocephalic Neck: Yes: WNL, Supple, Trachea Midline Cardiovascular: Yes: Pulse Irregular, Murmur, S1, S2 Respiratory: Yes: WNL, Regular, CTA Bilaterally Gastrointestinal: Yes: WNL, Normal Bowel Sounds Genitourinary: Yes: WNL Musculoskeletal: Yes: WNL Extremities: Yes: WNL Edema: No Integumentary: Yes: WNL Neurological: Yes: WNL, Alert, Oriented ...Motor Strength: WNL Psychiatric: Yes: WNL Labs: CBC, BMP 08/22/17 07:00 08/22/17 07:00 INR, PTT INR 1.04 (0.82-1.09) 08/23/17 06:58 Assessment/Plan - Problems Compression fracture of body of thoracic vertebra (Acute) s/p Kyphoplasty awaiting picc line (1) Dehydration Code(s): E86.0 - DEHYDRATION (2) Elevated INR Assessment/Plan: resolved Code(s): R79.1 - ABNORMAL COAGULATION PROFILE (3) Hyponatremia Assessment/Plan: resolved Code(s): E87.1 - HYPO-OSMOLALITY AND HYPONATREMIA (4) Syncope and collapse Assessment/Plan: Sycnope after urination; another episode last night. orthostatic VS checks. Avoid dehydrtion. ECHO: normal LVEF; severe MR and TR. Remains in severe pain from back spasms (compression fractures); weak from many days in bed. F/u with neurologist. Code(s): R55 - SYNCOPE AND COLLAPSE (5) GERD (gastroesophageal reflux disease) Assessment/Plan: also has large hiatal hernia. Code(s): K21.9 - GASTRO-ESOPHAGEAL REFLUX DISEASE WITHOUT ESOPHAGITIS (6) HLD (hyperlipidemia) Assessment/Plan: HDL 120; LDL 74; trigly 69 mg/dL. Code(s): E78.5 - HYPERLIPIDEMIA, UNSPECIFIED (7) HTN (hypertension) Assessment/Plan: on Bystolic and losartan; BP better-controlled. Code(s): I10 - ESSENTIAL (PRIMARY) HYPERTENSION Qualifiers: Hypertension type: essential hypertension Qualified Code(s): I10 - Essential (primary) hypertension; I10 - Essential (primary) hypertension; I10 - Essential (primary) hypertension (8) Back spasm Assessment/Plan: severe, unrelenting pain. Pain management in progress; on morphine, and Lidocaine patch; has been on Toradol. For kyphoplasty. Code(s): M62.830 - MUSCLE SPASM OF BACK (9) Paroxysmal atrial fibrillation Assessment/Plan: on Bystolic for HR and BP. cont warfarin
[2017-08-23] MEDS: WARFARIN NA 5 MG TABLET (UD) PO SCH (18:00)
[2017-08-23] MEDS ORDERED: WARFARIN NA 7.5 MG TABLET (FP) PO ONE (18:00)
[2017-08-23] MEDS: LIDOCAINE PATCH REMOVAL MC SCH (22:22)
[2017-08-23] MEDS: SENNOSIDES 8.6MG TABLET (FP) PO SCH (22:23)
[2017-08-23] MEDS: diazePAM 2 MG TABLET PO PRN (22:31)
[2017-08-24] MEDS: oxyCODONE HCL 5 MG TABLET PO PRN ×3 (00:33→22:56)
[2017-08-24] MEDS: ACETAMINOPHEN 325 MG TABLET (FP) PO PRN ×3 (00:33→22:56)
[2017-08-24] MEDS: POLYETHYLENE GLYCOL 3350 119 GM BTL PO SCH ×3 (06:22→22:55)
[2017-08-24] MEDS: morphine CARPU-JECT 8 MG/1 ML DISP.SYRIN IVPUSH PRN ×3 (08:49→18:50)
--- NOTE | 2017-08-24 09:42 | PN ---
Progress Note (short form) - Note Progress Note: Neurology History of Present Illness The patient is a 86 year old female brought via EMS, with a significant past medical history of chronic anemia (Iron Infusions twice a month), ulcerate esophagous, IBS, HTN and HLD, who presents to the emergency department after a syncopal episode. EMS noted that the patient was on a camode urinating when she syncopized and fell forward. Reportedly was unresponsive then becoming alert and oriented x4. She currently complains of back spasms which range from mild to moderate. Her son was at the bedside and confirmed history. She has prior syncope but last one was 3 years ago. She completed CT head which did not show acute changes. There was chronic L frontal sinus disease. CT thorax and chest compelted and did not show aneurysm or dissection, large hernia noted, ? biliary stricturing. Neurologic exam was nonfocal and patient mental status at baseline. Son reported she had injection in her back by Dr. escobar with relief in the past. CT T spine which was reviewed and showed compression fracture at T11, mild compression fracture noted at T8 as well. Bone scan completed and reviewed and indicated the same. Reviewed Dr. Escobar note and compelted kyphoplasty and reports improved symtoms. More comfortable since but does have some burning pain and advised her that she is on lyrica which can help. Getting oxycodone which is also helping. Overall, she does feel better and discussed getting therapy and trying to have ambulation. Would be a good idea for her to go to rehab after this and she has a place in mind already where she had a good experience last year, [facility]. Woke up feeling well but did have discomfort thereafter and reports being given morphine. Informed her improvement may be gradual for some time but encouraged by progress thus far. She was also optimistic. INR subtheraputic and to be dosed Coumadin to get INR to theraputic range. Active Medications Acetaminophen (Tylenol -) 650 mg PO Q6H PRN PRN Reason: FEVER OR PAIN Last Admin: 08/24/17 00:33 Dose: 650 mg Diazepam (Valium -) 2 mg PO Q8H PRN Last Admin: 08/23/17 22:31 Dose: 2 mg Enoxaparin Sodium (Lovenox -) 60 mg SQ Q12H [facility] Last Admin: 08/23/17 22:23 Dose: 60 mg Lidocaine (Lidoderm Patch -) 2 patch TP DAILY [facility] Last Admin: 08/23/17 09:11 Dose: 2 patch Losartan Potassium (Cozaar -) 50 mg PO DAILY [facility] Last Admin: 08/23/17 09:12 Dose: 50 mg Miscellaneous (Lidoderm Patch Removal) 1 each MC DAILY@2200 [facility] Last Admin: 08/23/17 22:22 Dose: 1 each Morphine Sulfate (Morphine Sulfate) 2 mg IVPUSH Q4H PRN PRN Reason: PAIN Last Admin: 08/24/17 08:49 Dose: 2 mg Nebivolol (Bystolic -) 10 mg PO DAILY [facility] Last Admin: 08/23/17 09:11 Dose: 10 mg Ondansetron HCl (Zofran Injection) 4 mg IVPUSH Q6H PRN PRN Reason: NAUSEA AND/OR VOMITING Oxycodone HCl (Roxicodone -) 10 mg PO Q4H PRN PRN Reason: PAIN Last Admin: 08/24/17 00:33 Dose: 10 mg Polyethylene Glycol (Miralax (For Daily Use) -) 17 gm PO TID [facility] Last Admin: 08/24/17 06:22 Dose: 17 gm Pregabalin (Lyrica -) 25 mg PO BID [facility] Last Admin: 08/23/17 22:24 Dose: 25 mg Senna (Senna -) 2 tab PO HS [facility] Last Admin: 08/23/17 22:23 Dose: Not Given Warfarin Sodium (Coumadin -) 5 mg PO DAILY@1800 [facility] Last Admin: 08/22/17 18:03 Dose: 5 mg *Physical Exam Vital Signs Period Temp Pulse Resp BP Sys/Ying Pulse Ox Last 24 Hr 98.0 F-98.6 F 75-90 18-20 94-108/55-59 97-98 GENERAL: Awake, alert, and fully oriented, in no acute distress HEAD: No signs of trauma, normocephalic, atraumatic EYES: PERRLA, EOMI, sclera anicteric, conjunctiva clear ENT: Auricles normal inspection, hearing grossly normal, nares patent, oropharynx clear without exudates. Moist mucosa NECK: Normal ROM, supple, no lymphadenopathy, JVD, or masses LUNGS: No distress, speaks full sentences, clear to auscultation bilaterally HEART: Regular rate and rhythm, normal S1 and S2, no murmurs, rubs or gallops, peripheral pulses normal and equal bilaterally. ABDOMEN: Soft, nontender, normoactive bowel sounds. No guarding, no rebound. No masses EXTREMITIES : Normal inspection, Normal range of motion, no edema. No clubbing or cyanosis. NEUROLOGICAL: Cranial nerves II through XII grossly intact. Normal speech, no focal sensorimotor deficits, finger to nose normal, gait was deferred CBCD WBC 5.7 K/mm3 (4.0-10.0) D 08/22/17 07:00 RBC 4.18 M/mm3 (3.60-5.2) 08/22/17 07:00 Hgb 11.6 GM/dL (10.7-15.3) D 08/22/17 07:00 Hct 35.4 % (32.4-45.2) D 08/22/17 07:00 MCV 84.8 fl (80-96) 08/22/17 07:00 MCHC 32.7 g/dl (32.0-36.0) 08/22/17 07:00 RDW 21.8 % (11.6-15.6) H 08/22/17 07:00 Plt Count 310 K/MM3 (134-434) 08/22/17 07:00 MPV 7.4 fl (7.5-11.1) L 08/22/17 07:00 CMP Sodium 136 mmol/L (136-145) 08/22/17 07:00 Potassium 4.3 mmol/L (3.5-5.1) 08/22/17 07:00 Chloride 99 mmol/L (98-107) 08/22/17 07:00 Carbon Dioxide 29 mmol/L (21-32) 08/22/17 07:00 Anion Gap 8 (8-16) 08/22/17 07:00 BUN 7 mg/dL (7-18) D 08/22/17 07:00 Creatinine 0.4 mg/dL (0.55-1.02) L 08/22/17 07:00 Creat Clearance w eGFR > 60 (>60) 08/10/17 23:27 Calcium 8.3 mg/dL (8.5-10.1) L 08/22/17 07:00 Total Bilirubin 0.6 mg/dL (0.2-1.0) D 08/10/17 23:27 AST 25 U/L (15-37) D 08/10/17 23:27 ALT 31 U/L (12-78) D 08/10/17 23:27 Alkaline Phosphatase 84 U/L (45-117) 08/10/17 23:27 Total Protein 6.6 g/dl (6.4-8.2) 08/10/17 23:27 Albumin 3.8 g/dl (3.4-5.0) 08/10/17 23:27 - RADIOLOGY CT head and CT chest/thorax reviewed CT T spine reviewed Bone scan reviewed Plan 86 year old female brought via EMS, with a significant past medical history of chronic anemia (Iron Infusions twice a month), ulcerate esophagous, IBS, HTN and HLD, who presents to the emergency department after a syncopal episode. EMS noted that the patient was on a camode urinating when she syncopized and fell forward. CT head which did not show acute changes. CT thorax and chest completed and reviewed as well (did not show aneurysm or dissection, large hernia noted, ? biliary stricturing). CT T spine with compression fx as noted above Neurologic exam was nonfocal and patient mental status at baseline. Kyphoplasty completed and helpful Getting lyrica but neuropathic discomfort, can continue 25mg twice daily Physical therapy and ambulation as tolerated Avoid aggresive movements Pain control which has been limited by PO and IV medications Would benefit from rehab placement, has a facility in mind called [facility] where she had a good experience Fall precautions
[2017-08-24 09:50] LABS: INR 1.37 (0.82-1.09); PROTHROMBIN TIME (PATIENT) 15.5 SEC (9.98-11.88)
[2017-08-24] MEDS ORDERED: BENZOCAINE/MENTH/CETYLPYRD CL 1 EACH LOZENGE MM PRN (10:09)
--- NOTE | 2017-08-24 10:22 | PN ---
Progress Note (short form) - Note Progress Note: Patient having a cough and feels congested over the last 12 hrs. Also had 1 recurrence of terrible spastic pain left posterior chest this AM. BP was lower yesterday and I will hold Bystolic today. INR a bit higher to 1.37 so I will need to keep her on Lovenox and order 7.5mg coumadin again. Encouraging PT report from yesterday; will repeat PT today. On Exam: Vital Signs Temp 98.0 F 08/24/17 09:58 Pulse 79 08/24/17 09:58 Resp 18 08/24/17 09:58 BP 132/56 08/24/17 09:58 Pulse Ox 98 08/23/17 21:00 Intake & Output 08/23/17 08/23/17 08/24/17 11:59 23:59 11:59 Intake Total 150 540 0 Balance 150 540 0 Intake: IV 0 0 SALINE LOCK 0 0 IVPB 0 0 Oral 150 540 Other: Voiding Method Bedpan Bedpan # Unmeasured Voids Void 2 1 Bowel Movement No Sleepy and pale when first in her room Chest: some rhonchi and few wheezes right posterior chest Abd: Soft EXT: SCD's; no edema Abnormal Lab Results 08/24/17 07:45 PT with INR 15.50 H INR 1.37 H D IMP: Acute Compression Fx T8 and Subacute Fx T11 Acute and Chronic Pain Hypertension Acute Bronchitis / URI Hx DVT and Paroxysmal A. Fib S/P Kyphoplasty LS Disc Surgery Plan: CXR Hold Bystolic today Cough syrup and Lozenge Coumadin Rx F/U INR Would delay transfer to SNF today with these medical issues arising Problem List - Problems (1) Compression fracture of body of thoracic vertebra Code(s): M48.54XA - COLLAPSED VERTEBRA, NEC, THORACIC REGION, INIT (2) Back spasm Code(s): M62.830 - MUSCLE SPASM OF BACK (3) Elevated INR Code(s): R79.1 - ABNORMAL COAGULATION PROFILE (4) HTN (hypertension) Code(s): I10 - ESSENTIAL (PRIMARY) HYPERTENSION Qualifiers: Hypertension type: essential hypertension Qualified Code(s): I10 - Essential (primary) hypertension; I10 - Essential (primary) hypertension; I10 - Essential (primary) hypertension (5) Hyponatremia Code(s): E87.1 - HYPO-OSMOLALITY AND HYPONATREMIA (6) Acute pain Code(s): R52 - PAIN, UNSPECIFIED (7) Hematuria Code(s): R31.9 - HEMATURIA, UNSPECIFIED
[2017-08-24] MEDS ORDERED: PT OWN MED DRAWER 7, Y5N ONE (11:14)
[2017-08-24] MEDS: NEBIVOLOL 10 MG TABLET (FP) PO SCH (11:20)
[2017-08-24] MEDS: PREGABALIN 25 MG CAPSULE PO SCH ×2 (11:30→22:55)
[2017-08-24] MEDS: LIDOCAINE 5% TOPICAL PATCH TP SCH (11:31)
[2017-08-24] MEDS: ENOXAPARIN NA (PORCINE) 60 MG/0.6 ML DISP.SYRIN SQ SCH ×2 (11:31→22:55)
[2017-08-24] MEDS: LOSARTAN POTASSIUM 50 MG TABLET (FP) PO SCH (11:31)
--- NOTE | 2017-08-24 12:00 | PATH ---
Surgical Pathology Report Patient Name: ALEXANDRIA ARRIOLA [facility]. Rec. #: [id number] /Age/Gender: 1930 (Age: 86) / F Account: [id number] Location: [address] [place] [address]/[facility] Taken: 08/20/2017 Received: 08/23/2017 Reported: 08/24/2017 Physicians: Fredi Mendoza M.D. Specimen(s) Received A: T8 BIOPSY B: T11 BIOPSY Clinical History Compression fracture T8 and T11 Final Diagnosis A. BONE, T8, BIOPSY: BONE WITH MARKED INTERSTITIAL FIBROSIS CONSISTENT WITH RESPONSE TO FRACTURE, AND CLOTTED BLOOD. B. BONE, T11, BIOPSY: BENIGN BONE AND CARTILAGE WITH FOCAL INTERSTITIAL FIBROSIS CONSISTENT WITH RESPONSE TO FRACTURE. Electronically Signed Aureliano Chen M.D. Gross Description A. Received in formalin labeled "T8 biopsy," is a 1.2 x 1.1 x 0.2 cm aggregate of red-brown blood clot, possibly containing bone fragments. The specimen is entirely submitted in one cassette, following decalcification. B. Received in formalin labeled "T11 biopsy," is a 1.1 cm in length x 0.2 cm in diameter ch, cylindrical portion of bone. The specimen is submitted in toto in one cassette, following decalcification. 08/23/201708/23/2017
[2017-08-24] MEDS: guaiFENesin 200 MG/10 ML 10 ML UNIT-DOSE CUPS PO PRN (14:17)
--- NOTE | 2017-08-24 14:51 | PN ---
Progress Note, Physician Chief Complaint: Pt is A&Ox3; no more back spasms, for which she is grateful, and pain meds have helped with the chronic lower back pain. Anxious History of Present Illness: The patient is an 86 year old white woman brought via EMS, with a significant past medical history of chronic anemia (Iron Infusions twice a month), chronic back pain (s/p thoraic spine fusion surgery), esophageal ulcer, IBS, paroxysmal AF, HTN (07/2017 ECHO: normal LVEF; severe MR and TR), and HLD, who presents to the emergency department after a syncopal episode today. EMS notes that the patient was on a camode urinating when she syncopized and fell forward. She remained unresponsive for 2 minutes before becoming alert and oriented x4. She currently complains of back spasms which range from mild to moderate. It is noted that the patient was in the ED yesterday for back spasms as well, for which she was discharged after improvement of symptoms. This counts as day 4 of her back spasms. She also complaints of frequency associated with her chief complaint. The patient denies chest pain, shortness of breath, headache and dizziness. Denies fever, chills, nausea, vomit, diarrhea and constipation. Denies dysuria, urgency and hematuria. Allergies: None Past surgical history: Spinal fusion, laminectomy, left carpal tunnel Social history: Former smoker. No alcohol or drug use reported - Current Medication List Current Medications: Active Medications Acetaminophen (Tylenol -) 650 mg PO Q6H PRN PRN Reason: FEVER OR PAIN Last Admin: 08/24/17 13:15 Dose: 650 mg Benzocaine/Menthol (Cepacol Lozenge -) 1 each MM PRN PRN PRN Reason: SORE THROAT Diazepam (Valium -) 2 mg PO Q8H PRN Last Admin: 08/23/17 22:31 Dose: 2 mg Enoxaparin Sodium (Lovenox -) 60 mg SQ Q12H [facility] Last Admin: 08/24/17 11:31 Dose: 60 mg Guaifenesin (Robitussin -) 10 ml PO Q4H PRN PRN Reason: COUGH Last Admin: 08/24/17 14:17 Dose: 10 ml Lidocaine (Lidoderm Patch -) 2 patch TP DAILY [facility] Last Admin: 08/24/17 11:31 Dose: 2 patch Losartan Potassium (Cozaar -) 50 mg PO DAILY [facility] Last Admin: 08/24/17 11:31 Dose: 50 mg Miscellaneous (Lidoderm Patch Removal) 1 each MC DAILY@2200 [facility] Last Admin: 08/23/17 22:22 Dose: 1 each Morphine Sulfate (Morphine Sulfate) 2 mg IVPUSH Q4H PRN PRN Reason: PAIN Last Admin: 08/24/17 14:17 Dose: 2 mg Nebivolol (Bystolic -) 10 mg PO DAILY [facility] Last Admin: 08/24/17 11:20 Dose: Not Given Ondansetron HCl (Zofran Injection) 4 mg IVPUSH Q6H PRN PRN Reason: NAUSEA AND/OR VOMITING Oxycodone HCl (Roxicodone -) 10 mg PO Q4H PRN PRN Reason: PAIN Last Admin: 08/24/17 13:14 Dose: 10 mg Polyethylene Glycol (Miralax (For Daily Use) -) 17 gm PO TID [facility] Last Admin: 08/24/17 13:14 Dose: Not Given Pregabalin (Lyrica -) 25 mg PO BID [facility] Last Admin: 08/24/17 11:30 Dose: 25 mg Senna (Senna -) 2 tab PO HS [facility] Last Admin: 08/23/17 22:23 Dose: Not Given Warfarin Sodium (Coumadin -) 5 mg PO DAILY@1800 [facility] Last Admin: 08/23/17 18:00 Dose: Not Given Warfarin Sodium (Coumadin -) 7.5 mg PO ONCE@1800 ONE Stop: 08/24/17 18:01 - Objective Vital Signs: Vital Signs Temperature 98.0 F 08/24/17 09:58 Pulse Rate 79 08/24/17 09:58 Respiratory Rate 18 08/24/17 09:58 Blood Pressure 132/56 08/24/17 09:58 O2 Sat by Pulse Oximetry (%) 98 08/23/17 21:00 Constitutional: Yes: Anxious Eyes: Yes: WNL HENT: Yes: WNL Neck: Yes: WNL Cardiovascular: Yes: Regular Rate and Rhythm, Murmur (3/6 systolic murmum, LSB-- >axilla), S1, S2 Respiratory: Yes: WNL Gastrointestinal: Yes: Soft ...Rectal Exam: Yes: Deferred Genitourinary: No: Anuria Musculoskeletal: Yes: Muscle Weakness Extremities: Yes: Cool Edema: No Peripheral Pulses WNL: No Peripheral Pulses: Left Doralis Pedis: 1+, Right Dorsalis Pedis: 1+ Integumentary: Yes: WNL Neurological: Yes: Alert, Oriented, Weakness Psychiatric: Yes: Alert, Oriented, Other (anxiety) Labs: CBC, BMP 08/22/17 07:00 08/22/17 07:00 INR, PTT INR 1.37 (0.82-1.09) H D 08/24/17 07:45 Abnormal Lab Results 08/24/17 07:45 PT with INR 15.50 H INR 1.37 H D - ....Imaging Chest X-ray: Image Reviewed (no acute pathology) Problem List - Problems (1) Dehydration Code(s): E86.0 - DEHYDRATION (2) Elevated INR Assessment/Plan: warfarin restarted Code(s): R79.1 - ABNORMAL COAGULATION PROFILE (3) Hyponatremia Assessment/Plan: Na 126-->136 Code(s): E87.1 - HYPO-OSMOLALITY AND HYPONATREMIA (4) GERD (gastroesophageal reflux disease) Assessment/Plan: also has large hiatal hernia. Code(s): K21.9 - GASTRO-ESOPHAGEAL REFLUX DISEASE WITHOUT ESOPHAGITIS (5) HLD (hyperlipidemia) Assessment/Plan: HDL 120; LDL 74; trigly 69 mg/dL. Code(s): E78.5 - HYPERLIPIDEMIA, UNSPECIFIED (6) HTN (hypertension) Assessment/Plan: on Bystolic and losartan; Rather than stopping Bystolic abruptly because of relatively low BP, will lower dose to 2.5 mg daily and f/u BP and RH. Code(s): I10 - ESSENTIAL (PRIMARY) HYPERTENSION Qualifiers: Hypertension type: essential hypertension Qualified Code(s): I10 - Essential (primary) hypertension; I10 - Essential (primary) hypertension; I10 - Essential (primary) hypertension (7) Back spasm Code(s): M62.830 - MUSCLE SPASM OF BACK (8) Paroxysmal atrial fibrillation Code(s): I48.0 - PAROXYSMAL ATRIAL FIBRILLATION
[2017-08-24] MEDS: NEBIVOLOL 2.5 MG TABLET (FP) PO SCH (16:47)
[2017-08-24] MEDS ORDERED: WARFARIN NA 7.5 MG TABLET (FP) PO ONE (18:00)
[2017-08-24] MEDS: LIDOCAINE PATCH REMOVAL MC SCH (22:55)
[2017-08-24] MEDS: diazePAM 2 MG TABLET PO PRN (22:56)
[2017-08-24] MEDS: SENNOSIDES 8.6MG TABLET (FP) PO SCH (22:56)
[2017-08-25] MEDS: POLYETHYLENE GLYCOL 3350 119 GM BTL PO SCH ×3 (06:54→21:11)
[2017-08-25 08:27] LABS: PROTHROMBIN TIME (PATIENT) 22.6 SEC (9.98-11.88)
[2017-08-25 09:11] LABS: EOSINOPHIL 3.7 % (0-4.5); MCH 27.2 pg (25.7-33.7); MEAN CELL VOLUME 85.1 fl (80-96); MEAN PLT VOLUME 7.9 fl (7.5-11.1); NEUTROPHILS 42.8 % (42.8-82.8); PLATELET COUNT 300 K/MM3 (134-434); WHITE BLOOD COUNT 5.8 K/mm3 (4.0-10.0)
[2017-08-25] MEDS ORDERED: PT OWN MED DRAWER 7, Y5N ONE (09:30)
[2017-08-25] MEDS: oxyCODONE HCL 5 MG TABLET PO PRN ×4 (09:32→23:16)
[2017-08-25] MEDS: LIDOCAINE 5% TOPICAL PATCH TP SCH (09:41)
[2017-08-25] MEDS: NEBIVOLOL 2.5 MG TABLET (FP) PO SCH (09:42)
[2017-08-25] MEDS: PREGABALIN 25 MG CAPSULE PO SCH ×2 (09:44→21:12)
[2017-08-25] MEDS: LOSARTAN POTASSIUM 50 MG TABLET (FP) PO SCH (09:44)
--- NOTE | 2017-08-25 10:35 | PN ---
Progress Note (short form) - Note Progress Note: Neurology History of Present Illness The patient is a 86 year old female brought via EMS, with a significant past medical history of chronic anemia (Iron Infusions twice a month), ulcerate esophagous, IBS, HTN and HLD, who presents to the emergency department after a syncopal episode. EMS noted that the patient was on a camode urinating when she syncopized and fell forward. Reportedly was unresponsive then becoming alert and oriented x4. She currently complains of back spasms which range from mild to moderate. Her son was at the bedside and confirmed history. She has prior syncope but last one was 3 years ago. She completed CT head which did not show acute changes. There was chronic L frontal sinus disease. CT thorax and chest compelted and did not show aneurysm or dissection, large hernia noted, ? biliary stricturing. Neurologic exam was nonfocal and patient mental status at baseline. Son reported she had injection in her back by Dr. escobar with relief in the past. CT T spine which was reviewed and showed compression fracture at T11, mild compression fracture noted at T8 as well. Bone scan completed and reviewed and indicated the same. Reviewed Dr. Escobar note and compelted kyphoplasty and reports improved symtoms. More comfortable since but does have some burning pain and advised her that she is on lyrica which can help. Getting oxycodone which is also helping. Overall, she does feel better and discussed getting therapy and trying to have ambulation. Would be a good idea for her to go to rehab after this and she has a place in mind already where she had a good experience last year, [facility]. Doing well today and feels better. Less pain, feels more able to move. INR subtheraputic and to be dosed Coumadin to get INR to theraputic range. Active Medications Acetaminophen (Tylenol -) 650 mg PO Q6H PRN PRN Reason: FEVER OR PAIN Last Admin: 08/24/17 22:56 Dose: 650 mg Benzocaine/Menthol (Cepacol Lozenge -) 1 each MM PRN PRN PRN Reason: SORE THROAT Last Admin: 08/24/17 18:43 Dose: 1 each Diazepam (Valium -) 2 mg PO Q8H PRN Last Admin: 08/24/17 22:56 Dose: 2 mg Guaifenesin (Robitussin -) 10 ml PO Q4H PRN PRN Reason: COUGH Last Admin: 08/24/17 14:17 Dose: 10 ml Lidocaine (Lidoderm Patch -) 2 patch TP DAILY [facility] Last Admin: 08/25/17 09:41 Dose: 2 patch Losartan Potassium (Cozaar -) 50 mg PO DAILY [facility] Last Admin: 08/25/17 09:44 Dose: 50 mg Miscellaneous (Lidoderm Patch Removal) 1 each MC DAILY@2200 [facility] Last Admin: 08/24/17 22:55 Dose: 1 each Nebivolol (Bystolic -) 2.5 mg PO DAILY [facility] Last Admin: 08/25/17 09:42 Dose: 2.5 mg Oxycodone HCl (Roxicodone -) 10 mg PO Q4H PRN PRN Reason: PAIN Last Admin: 08/25/17 09:32 Dose: 10 mg Polyethylene Glycol (Miralax (For Daily Use) -) 17 gm PO TID [facility] Last Admin: 08/25/17 06:54 Dose: 17 gm Pregabalin (Lyrica -) 25 mg PO BID [facility] Last Admin: 08/25/17 09:44 Dose: 25 mg Senna (Senna -) 2 tab PO HS [facility] Last Admin: 08/24/17 22:56 Dose: Not Given Warfarin Sodium (Coumadin -) 2.5 mg PO Q48H [facility] Warfarin Sodium (Coumadin -) 5 mg PO Q48H [facility] *Physical Exam Vital Signs Temperature 97.7 F 08/25/17 06:00 Pulse Rate 70 08/25/17 06:00 Respiratory Rate 18 08/25/17 06:00 Blood Pressure 116/57 08/25/17 06:00 O2 Sat by Pulse Oximetry (%) 96 08/24/17 21:00 GENERAL: Awake, alert, and fully oriented, in no acute distress HEAD: No signs of trauma, normocephalic, atraumatic EYES: PERRLA, EOMI, sclera anicteric, conjunctiva clear ENT: Auricles normal inspection, hearing grossly normal, nares patent, oropharynx clear without exudates. Moist mucosa NECK: Normal ROM, supple, no lymphadenopathy, JVD, or masses LUNGS: No distress, speaks full sentences, clear to auscultation bilaterally HEART: Regular rate and rhythm, normal S1 and S2, no murmurs, rubs or gallops, peripheral pulses normal and equal bilaterally. ABDOMEN: Soft, nontender, normoactive bowel sounds. No guarding, no rebound. No masses EXTREMITIES : Normal inspection, Normal range of motion, no edema. No clubbing or cyanosis. NEUROLOGICAL: Cranial nerves II through XII grossly intact. Normal speech, no focal sensorimotor deficits, finger to nose normal, gait was deferred CBCD WBC 5.8 K/mm3 (4.0-10.0) 08/25/17 06:00 RBC 3.92 M/mm3 (3.60-5.2) 08/25/17 06:00 Hgb 10.7 GM/dL (10.7-15.3) 08/25/17 06:00 Hct 33.4 % (32.4-45.2) 08/25/17 06:00 MCV 85.1 fl (80-96) 08/25/17 06:00 MCHC 32.0 g/dl (32.0-36.0) 08/25/17 06:00 RDW 21.0 % (11.6-15.6) H 08/25/17 06:00 Plt Count 300 K/MM3 (134-434) 08/25/17 06:00 MPV 7.9 fl (7.5-11.1) 08/25/17 06:00 CMP Sodium 136 mmol/L (136-145) 08/22/17 07:00 Potassium 4.3 mmol/L (3.5-5.1) 08/22/17 07:00 Chloride 99 mmol/L (98-107) 08/22/17 07:00 Carbon Dioxide 29 mmol/L (21-32) 08/22/17 07:00 Anion Gap 8 (8-16) 08/22/17 07:00 BUN 7 mg/dL (7-18) D 08/22/17 07:00 Creatinine 0.4 mg/dL (0.55-1.02) L 08/22/17 07:00 Creat Clearance w eGFR > 60 (>60) 08/10/17 23:27 Calcium 8.3 mg/dL (8.5-10.1) L 08/22/17 07:00 Total Bilirubin 0.6 mg/dL (0.2-1.0) D 08/10/17 23:27 AST 25 U/L (15-37) D 08/10/17 23:27 ALT 31 U/L (12-78) D 08/10/17 23:27 Alkaline Phosphatase 84 U/L (45-117) 08/10/17 23:27 Total Protein 6.6 g/dl (6.4-8.2) 08/10/17 23:27 Albumin 3.8 g/dl (3.4-5.0) 08/10/17 23:27 - RADIOLOGY CT head and CT chest/thorax reviewed CT T spine reviewed Bone scan reviewed Plan 86 year old female brought via EMS, with a significant past medical history of chronic anemia (Iron Infusions twice a month), ulcerate esophagous, IBS, HTN and HLD, who presents to the emergency department after a syncopal episode. EMS noted that the patient was on a camode urinating when she syncopized and fell forward. CT head which did not show acute changes. CT thorax and chest completed and reviewed as well (did not show aneurysm or dissection, large hernia noted, ? biliary stricturing). CT T spine with compression fx as noted above Kyphoplasty completed and very helpful Getting lyrica but neuropathic discomfort, can continue 25mg twice daily Physical therapy and ambulation as tolerated Has been gradually improving Pain control which has been limited by PO and IV medications Would benefit from rehab placement, has a facility in mind called [facility] where she had a good experience Fall precautions
--- NOTE | 2017-08-25 10:51 | PN ---
Progress Note, Physician History of Present Illness: The patient is a 86 year old female brought via EMS, with a significant past medical history of chronic anemia (Iron Infusions twice a month), ulcerate esophagous, IBS, HTN and HLD, who presents to the emergency department after a syncopal episode today. EMS notes that the patient was on a camode urinating when she syncopized and fell forward. She remained unresponsive for 2 minutes before becoming alert and oriented x4. She currently complains of back spasms which range from mild to moderate. It is noted that the patient was in the ED yesterday for back spasms as well, for which she was discharged after improvement of symptoms. This counts as day 4 of her back spasms. She also complaints of frequency associated with her chief complaint. The patient denies chest pain, shortness of breath, headache and dizziness. Denies fever, chills, nausea, vomit, diarrhea and constipation. Denies dysuria, urgency and hematuria. Allergies: None Past surgical history: Spinal fusion, laminectomy, left carpal tunnel Social history: Former smoker. No alcohol or drug use reported - Current Medication List Current Medications: Active Medications Acetaminophen (Tylenol -) 650 mg PO Q6H PRN PRN Reason: FEVER OR PAIN Last Admin: 08/24/17 22:56 Dose: 650 mg Benzocaine/Menthol (Cepacol Lozenge -) 1 each MM PRN PRN PRN Reason: SORE THROAT Last Admin: 08/24/17 18:43 Dose: 1 each Diazepam (Valium -) 2 mg PO Q8H PRN Last Admin: 08/24/17 22:56 Dose: 2 mg Guaifenesin (Robitussin -) 10 ml PO Q4H PRN PRN Reason: COUGH Last Admin: 08/24/17 14:17 Dose: 10 ml Lidocaine (Lidoderm Patch -) 2 patch TP DAILY [facility] Last Admin: 08/25/17 09:41 Dose: 2 patch Losartan Potassium (Cozaar -) 50 mg PO DAILY [facility] Last Admin: 08/25/17 09:44 Dose: 50 mg Miscellaneous (Lidoderm Patch Removal) 1 each MC DAILY@2200 [facility] Last Admin: 08/24/17 22:55 Dose: 1 each Nebivolol (Bystolic -) 2.5 mg PO DAILY [facility] Last Admin: 08/25/17 09:42 Dose: 2.5 mg Oxycodone HCl (Roxicodone -) 10 mg PO Q4H PRN PRN Reason: PAIN Last Admin: 08/25/17 09:32 Dose: 10 mg Polyethylene Glycol (Miralax (For Daily Use) -) 17 gm PO TID [facility] Last Admin: 08/25/17 06:54 Dose: 17 gm Pregabalin (Lyrica -) 25 mg PO BID [facility] Last Admin: 08/25/17 09:44 Dose: 25 mg Senna (Senna -) 2 tab PO HS [facility] Last Admin: 08/24/17 22:56 Dose: Not Given Warfarin Sodium (Coumadin -) 2.5 mg PO Q48H [facility] Warfarin Sodium (Coumadin -) 5 mg PO Q48H [facility] - Objective Vital Signs: Vital Signs Temperature 97.7 F 08/25/17 06:00 Pulse Rate 70 08/25/17 06:00 Respiratory Rate 18 08/25/17 06:00 Blood Pressure 116/57 08/25/17 06:00 O2 Sat by Pulse Oximetry (%) 96 08/24/17 21:00 Eyes: Yes: WNL, Conjunctiva Clear, EOM Intact HENT: Yes: WNL, Atraumatic, Normocephalic Neck: Yes: WNL, Supple, Trachea Midline Cardiovascular: Yes: WNL, Regular Rate and Rhythm Respiratory: Yes: WNL, Regular, CTA Bilaterally Gastrointestinal: Yes: WNL, Normal Bowel Sounds Genitourinary: Yes: WNL Musculoskeletal: Yes: WNL Extremities: Yes: WNL Edema: No Integumentary: Yes: WNL Neurological: Yes: WNL, Alert, Oriented ...Motor Strength: WNL Psychiatric: Yes: WNL Labs: CBC, BMP 08/25/17 06:00 08/22/17 07:00 INR, PTT INR 2.00 (0.82-1.09) H D 08/25/17 06:15 Assessment/Plan (1) Dehydration Code(s): E86.0 - DEHYDRATION (2) Elevated INR Assessment/Plan: warfarin restarted Code(s): R79.1 - ABNORMAL COAGULATION PROFILE (3) Hyponatremia Assessment/Plan: Na 126-->136 Code(s): E87.1 - HYPO-OSMOLALITY AND HYPONATREMIA (4) GERD (gastroesophageal reflux disease) Assessment/Plan: also has large hiatal hernia. Code(s): K21.9 - GASTRO-ESOPHAGEAL REFLUX DISEASE WITHOUT ESOPHAGITIS (5) HLD (hyperlipidemia) Assessment/Plan: HDL 120; LDL 74; trigly 69 mg/dL. Code(s): E78.5 - HYPERLIPIDEMIA, UNSPECIFIED (6) HTN (hypertension) Assessment/Plan: on Bystolic and losartan; Rather than stopping Bystolic abruptly because of relatively low BP, will lower dose to 2.5 mg daily and f/u BP and RH. Code(s): I10 - ESSENTIAL (PRIMARY) HYPERTENSION Qualifiers: Hypertension type: essential hypertension Qualified Code(s): I10 - Essential (primary) hypertension; I10 - Essential (primary) hypertension; I10 - Essential (primary) hypertension (7) Back spasm Code(s): M62.830 - MUSCLE SPASM OF BACK (8) Paroxysmal atrial fibrillation Code(s): I48.0 - PAROXYSMAL ATRIAL FIBRILLATION
[2017-08-25] MEDS ORDERED: WARFARIN NA 2.5 MG TABLET (FP) PO SCH ×2 (16:00→18:00)
[2017-08-25] MEDS: guaiFENesin 200 MG/10 ML 10 ML UNIT-DOSE CUPS PO PRN (19:00)
--- NOTE | 2017-08-25 19:04 | PN ---
Progress Note (short form) - Note Progress Note: patient seen and examined this morning. [place] less pain and spasms overnight. [facility]xious to go to [facility] facility. INR now in therapeutic range. had bright red blood from hemorrhoids with a bowel movement in the morning On exam: Vital Signs Temp 98.2 F 08/25/17 14:47 Pulse 92 H 08/25/17 14:47 Resp 20 08/25/17 14:47 BP 103/53 08/25/17 14:47 Pulse Ox 94 L 08/25/17 09:00 Intake & Output 08/24/17 08/25/17 08/25/17 23:59 11:59 23:59 Intake Total 1050 250 260 Balance 1050 250 260 Intake: IV 0 SALINE LOCK 0 IVPB 0 Oral 1050 250 260 Other: Voiding Method Bedpan Toilet # Unmeasured Voids Void 4 Bowel Movement No Yes # Bowel Movements 2 1 patient slightly pale. Alert chest decreased breath sounds. No pain spasm when she turned to let me examine her lungs Heart regular Abdomen soft Extremities no pedal edema. Abnormal Lab Results 08/25/17 08/25/17 06:00 06:15 RDW 21.0 H Monocytes % 13.8 H PT with INR 22.60 H INR 2.00 H D impression: Acute T8 and subacute T12 compression fractures of spine bleeding from hemorrhoids. Hypertension on medication. History of paroxysmal atrial fib History of recurrent DVT Lumbosacral disc surgery. Acute and chronic pain. Plan: Stat CBC to evaluate a.m. hemoglobin Pro time followup. SNF for rehabilitation when bed available Problem List - Problems (1) Compression fracture of body of thoracic vertebra Code(s): M48.54XA - COLLAPSED VERTEBRA, NEC, THORACIC REGION, INIT (2) Back spasm Code(s): M62.830 - MUSCLE SPASM OF BACK (3) Elevated INR Code(s): R79.1 - ABNORMAL COAGULATION PROFILE (4) HTN (hypertension) Code(s): I10 - ESSENTIAL (PRIMARY) HYPERTENSION Qualifiers: Hypertension type: essential hypertension Qualified Code(s): I10 - Essential (primary) hypertension; I10 - Essential (primary) hypertension; I10 - Essential (primary) hypertension (5) Hyponatremia Code(s): E87.1 - HYPO-OSMOLALITY AND HYPONATREMIA (6) Acute pain Code(s): R52 - PAIN, UNSPECIFIED (7) Hematuria Code(s): R31.9 - HEMATURIA, UNSPECIFIED
[2017-08-25] MEDS: SENNOSIDES 8.6MG TABLET (FP) PO SCH (21:11)
[2017-08-25] MEDS: diazePAM 2 MG TABLET PO PRN (21:12)
[2017-08-25] MEDS: LIDOCAINE PATCH REMOVAL MC SCH (21:14)
[2017-08-26] MEDS: POLYETHYLENE GLYCOL 3350 119 GM BTL PO SCH ×3 (05:27→22:17)
--- NOTE | 2017-08-26 08:54 | DS ---
Physical Examination Vital Signs: Vital Signs Temperature 98.1 F 08/26/17 06:00 Pulse Rate 77 08/26/17 06:00 Respiratory Rate 16 08/26/17 06:00 Blood Pressure 101/43 08/26/17 06:00 O2 Sat by Pulse Oximetry (%) 94 L 08/25/17 22:00 Constitutional: Yes: Calm Eyes: Yes: Conjunctiva Clear Neck: Yes: Tenderness Respiratory: Yes: Regular Neurological: Yes: Alert, Oriented Labs: CBC, BMP 08/25/17 06:00 08/22/17 07:00 Discharge Summary Reason For Visit: AFIB SYNCOPE DEHYDRATION Current Active Problems Acute pain (Acute) Back spasm (Acute) Compression fracture of body of thoracic vertebraT8 and T11 (Acute) Dehydration (Acute) Dilated bile duct (Acute) Elevated INR (Acute) Hematuria (Acute) Hyperkalemia (Acute) Hyponatremia (Acute) Nausea & vomiting (Acute) Paroxysmal atrial fibrillation (Acute) Vomiting (Acute) Hypertension Procedures: Principal: Kyphoplasty T8 n T11 Other Procedures: IV and PO pain meds. F/U INRs. Nuclear bone scan and Thoracic spine scan. Pain, heart and Neuro Md's Hospital Course: Still in terrible unrelieved pain until kyphoplasy performed. Also needed Lovenox until coumadin and INR therapeutic. Condition: Stable - Instructions Diet, Activity, Other Instructions: No added salt in diet. Please do INR every other day. Goal 2-3. Hold if INR >3. Her regular coumadin dose is 5mg alternating with 2.5mg every other day. Referrals: Guillaume Hernandez MD [Staff Physician] - Disposition: [facility] - Home Medications Comprehensive Discharge Medication List: Ambulatory Orders Simvastatin [Zocor -] 20 mg PO HS 04/26/13 Ibandronate Sodium [Boniva] 150 mg PO WEEKLY tablet 07/19/13 Calcium Citrate/Vitamin D3 [Citracal + D Caplet] 2 each PO BID tablet 09/26/13 Pantoprazole Sodium [Protonix -] 40 mg PO DAILY 03/06/14 Sertraline HCl [Zoloft -] 50 mg PO HS 03/06/14 Warfarin Sodium [Coumadin] 5 mg PO Q2D 10/16/16 Warfarin Na [Coumadin -] 2.5 mg PO Q2D #0 tablet 10/20/16 Losartan Potassium [Cozaar -] 100 mg PO DAILY 08/09/17 Acetaminophen [Tylenol .Regular Strength -] 650 mg PO Q6H PRN #0 tablet Diazepam [Valium] 2 mg PO Q8H PRN #0 tablet MDD 3 08/25/17 Guaifenesin [Robitussin -] 10 ml PO Q4H PRN #0 ml 08/25/17 Lidocaine 5% Patch [Lidoderm -] 2 patch TP DAILY patch 08/25/17 Lidocaine Patch Removal [Lidoderm Patch Removal] 1 each MC DAILY@2200 each 11/10 Nebivolol [Bystolic -] 2.5 mg PO DAILY tab 08/25/17 Oxycodone HCl [Roxicodone -] 10 mg PO Q4H PRN #0 tablet MDD 4 08/25/17 Polyethylene Glycol 3350 [Miralax 119 gm Btl -] 17 gm PO TID bottle 08/25/17 Pregabalin [Lyrica -] 25 mg PO BID #60 cap MDD 2 08/25/17 Sennosides [Senna -] 2 tab PO HS #60 tablet 08/25/17
[2017-08-26 09:03] LABS: INR 2.1 (0.82-1.09); PROTHROMBIN TIME (PATIENT) 23.7 SEC (9.98-11.88)
[2017-08-26] MEDS: ACETAMINOPHEN 325 MG TABLET (FP) PO PRN ×3 (09:16→22:18)
[2017-08-26] MEDS: oxyCODONE HCL 5 MG TABLET PO PRN ×4 (09:16→22:17)
--- NOTE | 2017-08-26 09:38 | PN ---
Progress Note (short form) - Note Progress Note: Neurology History of Present Illness The patient is a 86 year old female brought via EMS, with a significant past medical history of chronic anemia (Iron Infusions twice a month), ulcerate esophagous, IBS, HTN and HLD, who presents to the emergency department after a syncopal episode. EMS noted that the patient was on a camode urinating when she syncopized and fell forward. Reportedly was unresponsive then becoming alert and oriented x4. She currently complains of back spasms which range from mild to moderate. Her son was at the bedside and confirmed history. She has prior syncope but last one was 3 years ago. She completed CT head which did not show acute changes. There was chronic L frontal sinus disease. CT thorax and chest compelted and did not show aneurysm or dissection, large hernia noted, ? biliary stricturing. Neurologic exam was nonfocal and patient mental status at baseline. Son reported she had injection in her back by Dr. escobar with relief in the past. CT T spine which was reviewed and showed compression fracture at T11, mild compression fracture noted at T8 as well. Bone scan completed and reviewed and indicated the same. Reviewed Dr. Escobar note and compelted kyphoplasty and reports improved symtoms. More comfortable since but does have some burning pain and advised her that she is on lyrica which can help. Getting oxycodone which is also helping. Overall, continues to feel better and planned for [facility]. manager endoscopy working toward discharge. Doing well today and feels better. Less pain, feels more able to move. Family at bedside this morning. Active Medications Acetaminophen (Tylenol -) 650 mg PO Q6H PRN PRN Reason: FEVER OR PAIN Last Admin: 08/26/17 09:16 Dose: 650 mg Benzocaine/Menthol (Cepacol Lozenge -) 1 each MM PRN PRN PRN Reason: SORE THROAT Last Admin: 08/24/17 18:43 Dose: 1 each Diazepam (Valium -) 2 mg PO Q8H PRN Last Admin: 08/25/17 21:12 Dose: 2 mg Guaifenesin (Robitussin -) 10 ml PO Q4H PRN PRN Reason: COUGH Last Admin: 08/25/17 19:00 Dose: 10 ml Lidocaine (Lidoderm Patch -) 2 patch TP DAILY [facility] Last Admin: 08/25/17 09:41 Dose: 2 patch Losartan Potassium (Cozaar -) 50 mg PO DAILY [facility] Last Admin: 08/25/17 09:44 Dose: 50 mg Miscellaneous (Lidoderm Patch Removal) 1 each MC DAILY@2200 [facility] Last Admin: 08/25/17 21:14 Dose: 1 each Nebivolol (Bystolic -) 2.5 mg PO DAILY [facility] Last Admin: 08/25/17 09:42 Dose: 2.5 mg Oxycodone HCl (Roxicodone -) 10 mg PO Q4H PRN PRN Reason: PAIN Last Admin: 08/26/17 09:16 Dose: 10 mg Polyethylene Glycol (Miralax (For Daily Use) -) 17 gm PO TID [facility] Last Admin: 08/26/17 05:27 Dose: Not Given Pregabalin (Lyrica -) 25 mg PO BID [facility] Last Admin: 08/25/17 21:12 Dose: 25 mg Senna (Senna -) 2 tab PO HS [facility] Last Admin: 08/25/17 21:11 Dose: Not Given Warfarin Sodium (Coumadin -) 5 mg PO Q48H [facility] Warfarin Sodium (Coumadin -) 2.5 mg PO Q48H [facility] Last Admin: 08/25/17 17:28 Dose: 2.5 mg *Physical Exam Vital Signs Period Temp Pulse Resp BP Sys/Ying Pulse Ox Last 24 Hr 98.1 F-98.9 F 77-92 16-20 101-116/43-68 94 GENERAL: Awake, alert, and fully oriented, in no acute distress HEAD: No signs of trauma, normocephalic, atraumatic EYES: PERRLA, EOMI, sclera anicteric, conjunctiva clear ENT: Auricles normal inspection, hearing grossly normal, nares patent, oropharynx clear without exudates. Moist mucosa NECK: Normal ROM, supple, no lymphadenopathy, JVD, or masses LUNGS: No distress, speaks full sentences, clear to auscultation bilaterally HEART: Regular rate and rhythm, normal S1 and S2, no murmurs, rubs or gallops, peripheral pulses normal and equal bilaterally. ABDOMEN: Soft, nontender, normoactive bowel sounds. No guarding, no rebound. No masses EXTREMITIES : Normal inspection, Normal range of motion, no edema. No clubbing or cyanosis. NEUROLOGICAL: Cranial nerves II through XII grossly intact. Normal speech, no focal sensorimotor deficits, finger to nose normal, gait was deferred CBCD WBC 5.8 K/mm3 (4.0-10.0) 08/25/17 06:00 RBC 3.92 M/mm3 (3.60-5.2) 08/25/17 06:00 Hgb 10.7 GM/dL (10.7-15.3) 08/25/17 06:00 Hct 33.4 % (32.4-45.2) 08/25/17 06:00 MCV 85.1 fl (80-96) 08/25/17 06:00 MCHC 32.0 g/dl (32.0-36.0) 08/25/17 06:00 RDW 21.0 % (11.6-15.6) H 08/25/17 06:00 Plt Count 300 K/MM3 (134-434) 08/25/17 06:00 MPV 7.9 fl (7.5-11.1) 08/25/17 06:00 CMP Sodium 136 mmol/L (136-145) 08/22/17 07:00 Potassium 4.3 mmol/L (3.5-5.1) 08/22/17 07:00 Chloride 99 mmol/L (98-107) 08/22/17 07:00 Carbon Dioxide 29 mmol/L (21-32) 08/22/17 07:00 Anion Gap 8 (8-16) 08/22/17 07:00 BUN 7 mg/dL (7-18) D 08/22/17 07:00 Creatinine 0.4 mg/dL (0.55-1.02) L 08/22/17 07:00 Creat Clearance w eGFR > 60 (>60) 08/10/17 23:27 Calcium 8.3 mg/dL (8.5-10.1) L 08/22/17 07:00 Total Bilirubin 0.6 mg/dL (0.2-1.0) D 08/10/17 23:27 AST 25 U/L (15-37) D 08/10/17 23:27 ALT 31 U/L (12-78) D 08/10/17 23:27 Alkaline Phosphatase 84 U/L (45-117) 08/10/17 23:27 Total Protein 6.6 g/dl (6.4-8.2) 08/10/17 23:27 Albumin 3.8 g/dl (3.4-5.0) 08/10/17 23:27 - RADIOLOGY CT head and CT chest/thorax reviewed CT T spine reviewed Bone scan reviewed Plan 86 year old female brought via EMS, with a significant past medical history of chronic anemia (Iron Infusions twice a month), ulcerate esophagous, IBS, HTN and HLD, who presents to the emergency department after a syncopal episode. EMS noted that the patient was on a camode urinating when she syncopized and fell forward. CT head which did not show acute changes. CT thorax and chest completed and reviewed as well (did not show aneurysm or dissection, large hernia noted, ? biliary stricturing). CT T spine with compression fx as noted above Kyphoplasty completed and very helpful Has been gradually improving Pain control which has been limited by PO and IV medications Planned for discharge
[2017-08-26] MEDS ORDERED: PT OWN MED DRAWER 7, Y5N ONE (10:22)
[2017-08-26] MEDS: NEBIVOLOL 2.5 MG TABLET (FP) PO SCH (10:23)
[2017-08-26] MEDS: LOSARTAN POTASSIUM 50 MG TABLET (FP) PO SCH (10:23)
[2017-08-26] MEDS: LIDOCAINE 5% TOPICAL PATCH TP SCH (10:23)
[2017-08-26] MEDS: PREGABALIN 25 MG CAPSULE PO SCH ×2 (10:24→22:16)
--- NOTE | 2017-08-26 11:57 | PN ---
Progress Note, Physician Chief Complaint: Pt is A&Ox3; back pain is more tolerable. History of Present Illness: The patient is an 86 year old white woman brought via EMS, with a significant past medical history of chronic anemia (Iron Infusions twice a month), chronic back pain (s/p thoraic spine fusion surgery), esophageal ulcer, IBS, paroxysmal AF, HTN (07/2017 ECHO: normal LVEF; severe MR and TR), and HLD, who presents to the emergency department after a syncopal episode today. EMS notes that the patient was on a camode urinating when she syncopized and fell forward. She remained unresponsive for 2 minutes before becoming alert and oriented x4. She currently complains of back spasms which range from mild to moderate. It is noted that the patient was in the ED yesterday for back spasms as well, for which she was discharged after improvement of symptoms. This counts as day 4 of her back spasms. She also complaints of frequency associated with her chief complaint. The patient denies chest pain, shortness of breath, headache and dizziness. Denies fever, chills, nausea, vomit, diarrhea and constipation. Denies dysuria, urgency and hematuria. Allergies: None Past surgical history: Spinal fusion, laminectomy, left carpal tunnel Social history: Former smoker. No alcohol or drug use reported - Current Medication List Current Medications: Active Medications Acetaminophen (Tylenol -) 650 mg PO Q6H PRN PRN Reason: FEVER OR PAIN Last Admin: 08/26/17 09:16 Dose: 650 mg Benzocaine/Menthol (Cepacol Lozenge -) 1 each MM PRN PRN PRN Reason: SORE THROAT Last Admin: 08/24/17 18:43 Dose: 1 each Diazepam (Valium -) 2 mg PO Q8H PRN Last Admin: 08/25/17 21:12 Dose: 2 mg Guaifenesin (Robitussin -) 10 ml PO Q4H PRN PRN Reason: COUGH Last Admin: 08/25/17 19:00 Dose: 10 ml Lidocaine (Lidoderm Patch -) 2 patch TP DAILY [facility] Last Admin: 08/26/17 10:23 Dose: 2 patch Losartan Potassium (Cozaar -) 50 mg PO DAILY [facility] Last Admin: 08/26/17 10:23 Dose: Not Given Miscellaneous (Lidoderm Patch Removal) 1 each MC DAILY@2200 [facility] Last Admin: 08/25/17 21:14 Dose: 1 each Nebivolol (Bystolic -) 2.5 mg PO DAILY [facility] Last Admin: 08/26/17 10:23 Dose: 2.5 mg Oxycodone HCl (Roxicodone -) 10 mg PO Q4H PRN PRN Reason: PAIN Last Admin: 08/26/17 09:16 Dose: 10 mg Polyethylene Glycol (Miralax (For Daily Use) -) 17 gm PO TID [facility] Last Admin: 08/26/17 05:27 Dose: Not Given Pregabalin (Lyrica -) 25 mg PO BID [facility] Last Admin: 08/26/17 10:24 Dose: 25 mg Senna (Senna -) 2 tab PO HS [facility] Last Admin: 08/25/17 21:11 Dose: Not Given Warfarin Sodium (Coumadin -) 5 mg PO Q48H [facility] Warfarin Sodium (Coumadin -) 2.5 mg PO Q48H [facility] Last Admin: 08/25/17 17:28 Dose: 2.5 mg - Objective Vital Signs: Vital Signs Temperature 97.8 F 08/26/17 09:00 Pulse Rate 90 08/26/17 09:00 Respiratory Rate 17 08/26/17 09:00 Blood Pressure 102/54 08/26/17 09:00 O2 Sat by Pulse Oximetry (%) 94 L 08/25/17 22:00 Constitutional: Yes: Calm Eyes: Yes: WNL HENT: Yes: WNL Neck: Yes: WNL Cardiovascular: Yes: Regular Rate and Rhythm Respiratory: Yes: Regular Gastrointestinal: Yes: Soft ...Rectal Exam: Yes: Deferred Genitourinary: No: Anuria Breast(s): Yes: WNL Musculoskeletal: Yes: Back Pain, Joint Stiffness, Muscle Weakness Extremities: Yes: Cool Edema: No Peripheral Pulses WNL: No Peripheral Pulses: Left Doralis Pedis: 1+, Right Dorsalis Pedis: 1+ Integumentary: Yes: WNL Neurological: Yes: Alert, Oriented, Weakness Psychiatric: Yes: Other (anxiety) Labs: CBC, BMP 08/25/17 06:00 08/22/17 07:00 INR, PTT INR 2.10 (0.82-1.09) H 08/26/17 06:00 Problem List - Problems (1) Dehydration Code(s): E86.0 - DEHYDRATION (2) Elevated INR Assessment/Plan: warfarin restarted; therapeutic INR now reached. Code(s): R79.1 - ABNORMAL COAGULATION PROFILE (3) GERD (gastroesophageal reflux disease) Assessment/Plan: also has large hiatal hernia. Code(s): K21.9 - GASTRO-ESOPHAGEAL REFLUX DISEASE WITHOUT ESOPHAGITIS (4) HLD (hyperlipidemia) Assessment/Plan: HDL 120; LDL 74; trigly 69 mg/dL. Code(s): E78.5 - HYPERLIPIDEMIA, UNSPECIFIED (5) HTN (hypertension) Code(s): I10 - ESSENTIAL (PRIMARY) HYPERTENSION Qualifiers: Hypertension type: essential hypertension Qualified Code(s): I10 - Essential (primary) hypertension; I10 - Essential (primary) hypertension; I10 - Essential (primary) hypertension (6) Back spasm Assessment/Plan: Pain management in progress; on morphine, and Lidocaine patch; has been on Toradol. s/p kyphoplasty. Pain is better-controlled. Code(s): M62.830 - MUSCLE SPASM OF BACK (7) Paroxysmal atrial fibrillation Assessment/Plan: on Bystolic for HR and BP. On warfarin; INR is now therapeutic. Code(s): I48.0 - PAROXYSMAL ATRIAL FIBRILLATION
[2017-08-26] MEDS ORDERED: WARFARIN NA 5 MG TABLET (UD) PO SCH (18:00)
[2017-08-26] MEDS: LIDOCAINE PATCH REMOVAL MC SCH (22:16)
[2017-08-26] MEDS: SENNOSIDES 8.6MG TABLET (FP) PO SCH (22:17)
[2017-08-27] MEDS: POLYETHYLENE GLYCOL 3350 119 GM BTL PO SCH ×2 (06:52→13:00)
[2017-08-27] MEDS: oxyCODONE HCL 5 MG TABLET PO PRN ×2 (06:55→12:13)
--- NOTE | 2017-08-27 09:26 | PN ---
Progress Note (short form) - Note Progress Note: Neurology History of Present Illness The patient is a 86 year old female brought via EMS, with a significant past medical history of chronic anemia (Iron Infusions twice a month), ulcerate esophagous, IBS, HTN and HLD, who presents to the emergency department after a syncopal episode. EMS noted that the patient was on a camode urinating when she syncopized and fell forward. Reportedly was unresponsive then becoming alert and oriented x4. She currently complains of back spasms which range from mild to moderate. Her son was at the bedside and confirmed history. She has prior syncope but last one was 3 years ago. She completed CT head which did not show acute changes. There was chronic L frontal sinus disease. CT thorax and chest compelted and did not show aneurysm or dissection, large hernia noted, ? biliary stricturing. Neurologic exam was nonfocal and patient mental status at baseline. Son reported she had injection in her back by Dr. escobar with relief in the past. CT T spine which was reviewed and showed compression fracture at T11, mild compression fracture noted at T8 as well. Bone scan completed and reviewed and indicated the same. Dr. Escobar compelted kyphoplasty and reports improved symtoms. More comfortable since but does have some burning pain and advised her that she is on lyrica which can help. Getting oxycodone which is also helping. Overall, continues to feel better and planned for SNF. 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 Less pain, feels more able to move. Frustrated with being in the hospital, tried to encourage patient this AM. Active Medications Acetaminophen (Tylenol -) 650 mg PO Q6H PRN PRN Reason: FEVER OR PAIN Last Admin: 08/26/17 22:18 Dose: 650 mg Benzocaine/Menthol (Cepacol Lozenge -) 1 each MM PRN PRN PRN Reason: SORE THROAT Last Admin: 08/24/17 18:43 Dose: 1 each Diazepam (Valium -) 2 mg PO Q8H PRN Last Admin: 08/25/17 21:12 Dose: 2 mg Guaifenesin (Robitussin -) 10 ml PO Q4H PRN PRN Reason: COUGH Last Admin: 08/25/17 19:00 Dose: 10 ml Lidocaine (Lidoderm Patch -) 2 patch TP DAILY [facility] Last Admin: 08/26/17 10:23 Dose: 2 patch Losartan Potassium (Cozaar -) 50 mg PO DAILY [facility] Last Admin: 08/26/17 10:23 Dose: Not Given Miscellaneous (Lidoderm Patch Removal) 1 each MC DAILY@2200 [facility] Last Admin: 08/26/17 22:16 Dose: 1 each Nebivolol (Bystolic -) 2.5 mg PO DAILY [facility] Last Admin: 08/26/17 10:23 Dose: 2.5 mg Oxycodone HCl (Roxicodone -) 10 mg PO Q4H PRN PRN Reason: PAIN Last Admin: 08/27/17 06:55 Dose: 10 mg Polyethylene Glycol (Miralax (For Daily Use) -) 17 gm PO TID [facility] Last Admin: 08/27/17 06:52 Dose: Not Given Pregabalin (Lyrica -) 25 mg PO BID [facility] Last Admin: 08/26/17 22:16 Dose: 25 mg Senna (Senna -) 2 tab PO HS [facility] Last Admin: 08/26/17 22:17 Dose: Not Given Warfarin Sodium (Coumadin -) 5 mg PO Q48H [facility] Last Admin: 08/26/17 17:44 Dose: 5 mg Warfarin Sodium (Coumadin -) 2.5 mg PO Q48H [facility] Last Admin: 08/25/17 17:28 Dose: 2.5 mg *Physical Exam Vital Signs Temperature 98.6 F 08/27/17 06:00 Pulse Rate 79 08/27/17 06:00 Respiratory Rate 18 08/27/17 06:00 Blood Pressure 125/66 08/27/17 06:00 O2 Sat by Pulse Oximetry (%) 92 L 08/26/17 21:00 GENERAL: Awake, alert, and fully oriented, in no acute distress HEAD: No signs of trauma, normocephalic, atraumatic EYES: PERRLA, EOMI, sclera anicteric, conjunctiva clear ENT: Auricles normal inspection, hearing grossly normal, nares patent, oropharynx clear without exudates. Moist mucosa NECK: Normal ROM, supple, no lymphadenopathy, JVD, or masses LUNGS: No distress, speaks full sentences, clear to auscultation bilaterally HEART: Regular rate and rhythm, normal S1 and S2, no murmurs, rubs or gallops, peripheral pulses normal and equal bilaterally. ABDOMEN: Soft, nontender, normoactive bowel sounds. No guarding, no rebound. No masses EXTREMITIES : Normal inspection, Normal range of motion, no edema. No clubbing or cyanosis. NEUROLOGICAL: Cranial nerves II through XII grossly intact. Normal speech, no focal sensorimotor deficits, finger to nose normal, gait was deferred CBCD WBC 5.8 K/mm3 (4.0-10.0) 08/25/17 06:00 RBC 3.92 M/mm3 (3.60-5.2) 08/25/17 06:00 Hgb 10.7 GM/dL (10.7-15.3) 08/25/17 06:00 Hct 33.4 % (32.4-45.2) 08/25/17 06:00 MCV 85.1 fl (80-96) 08/25/17 06:00 MCHC 32.0 g/dl (32.0-36.0) 08/25/17 06:00 RDW 21.0 % (11.6-15.6) H 08/25/17 06:00 Plt Count 300 K/MM3 (134-434) 08/25/17 06:00 MPV 7.9 fl (7.5-11.1) 08/25/17 06:00 CMP Sodium 136 mmol/L (136-145) 08/22/17 07:00 Potassium 4.3 mmol/L (3.5-5.1) 08/22/17 07:00 Chloride 99 mmol/L (98-107) 08/22/17 07:00 Carbon Dioxide 29 mmol/L (21-32) 08/22/17 07:00 Anion Gap 8 (8-16) 08/22/17 07:00 BUN 7 mg/dL (7-18) D 08/22/17 07:00 Creatinine 0.4 mg/dL (0.55-1.02) L 08/22/17 07:00 Creat Clearance w eGFR > 60 (>60) 08/10/17 23:27 Calcium 8.3 mg/dL (8.5-10.1) L 08/22/17 07:00 Total Bilirubin 0.6 mg/dL (0.2-1.0) D 08/10/17 23:27 AST 25 U/L (15-37) D 08/10/17 23:27 ALT 31 U/L (12-78) D 08/10/17 23:27 Alkaline Phosphatase 84 U/L (45-117) 08/10/17 23:27 Total Protein 6.6 g/dl (6.4-8.2) 08/10/17 23:27 Albumin 3.8 g/dl (3.4-5.0) 08/10/17 23:27 - RADIOLOGY CT head and CT chest/thorax reviewed CT T spine reviewed Bone scan reviewed Plan 86 year old female brought via EMS, with a significant past medical history of chronic anemia (Iron Infusions twice a month), ulcerate esophagous, IBS, HTN and HLD, who presents to the emergency department after a syncopal episode. EMS noted that the patient was on a camode urinating when she syncopized and fell forward. CT head which did not show acute changes. CT thorax and chest completed and reviewed as well (did not show aneurysm or dissection, large hernia noted, ? biliary stricturing). CT T spine with compression fx as noted above Kyphoplasty completed and very helpful Has been gradually improving Pain control which has been limited by PO and IV medications Planned for discharge and wanted to go to [facility] Tried to encourage patient No further recommendations at this time
[2017-08-27] MEDS ORDERED: PT OWN MED DRAWER 7, Y5N ONE (09:30)
--- NOTE | 2017-08-27 09:52 | PN ---
Progress Note (short form) - Note Progress Note: Still awaiting for transfer to SNF. I think fall risk is great at home. Discharge renewed for the third day in a row. INR ordered. Problem List - Problems (1) Compression fracture of body of thoracic vertebra Code(s): M48.54XA - COLLAPSED VERTEBRA, NEC, THORACIC REGION, INIT (2) Back spasm Code(s): M62.830 - MUSCLE SPASM OF BACK (3) Elevated INR Code(s): R79.1 - ABNORMAL COAGULATION PROFILE (4) HTN (hypertension) Code(s): I10 - ESSENTIAL (PRIMARY) HYPERTENSION Qualifiers: Hypertension type: essential hypertension Qualified Code(s): I10 - Essential (primary) hypertension; I10 - Essential (primary) hypertension; I10 - Essential (primary) hypertension (5) Hyponatremia Code(s): E87.1 - HYPO-OSMOLALITY AND HYPONATREMIA (6) Acute pain Code(s): R52 - PAIN, UNSPECIFIED (7) Hematuria Code(s): R31.9 - HEMATURIA, UNSPECIFIED
[2017-08-27] MEDS: LOSARTAN POTASSIUM 50 MG TABLET (FP) PO SCH (09:55)
[2017-08-27] MEDS: NEBIVOLOL 2.5 MG TABLET (FP) PO SCH (09:55)
[2017-08-27] MEDS: PREGABALIN 25 MG CAPSULE PO SCH (09:55)
[2017-08-27] MEDS: LIDOCAINE 5% TOPICAL PATCH TP SCH (09:56)
[2017-08-27 10:55] LABS: INR 2.44 (0.82-1.09); PROTHROMBIN TIME (PATIENT) 27.6 SEC (9.98-11.88)
[2017-08-27 12:43] VITALS: BP 119/47; PULSE 78; TEMP 97.9
--- NOTE | 2017-08-28 05:47 | PN ---
Progress Note, Physician Chief Complaint: Pt is A&Ox3; back pain better controlled History of Present Illness: The patient is an 86 year old white woman brought via EMS, with a significant past medical history of chronic anemia (Iron Infusions twice a month), chronic back pain (s/p thoraic spine fusion surgery), esophageal ulcer, IBS, paroxysmal AF, HTN (07/2017 ECHO: normal LVEF; severe MR and TR), and HLD, who presents to the emergency department after a syncopal episode today. EMS notes that the patient was on a camode urinating when she syncopized and fell forward. She remained unresponsive for 2 minutes before becoming alert and oriented x4. She currently complains of back spasms which range from mild to moderate. It is noted that the patient was in the ED yesterday for back spasms as well, for which she was discharged after improvement of symptoms. This counts as day 4 of her back spasms. She also complaints of frequency associated with her chief complaint. The patient denies chest pain, shortness of breath, headache and dizziness. Denies fever, chills, nausea, vomit, diarrhea and constipation. Denies dysuria, urgency and hematuria. Allergies: None Past surgical history: Spinal fusion, laminectomy, left carpal tunnel Social history: Former smoker. No alcohol or drug use reported - Objective Vital Signs: Vital Signs Temperature 97.9 F 08/27/17 10:00 Pulse Rate 78 08/27/17 10:00 Respiratory Rate 16 08/27/17 10:00 Blood Pressure 119/47 08/27/17 10:00 O2 Sat by Pulse Oximetry (%) 94 L 08/27/17 10:00 Constitutional: Yes: Anxious Eyes: Yes: WNL HENT: Yes: WNL Neck: Yes: WNL Cardiovascular: Yes: Regular Rate and Rhythm, S1, S2 Respiratory: Yes: Regular Gastrointestinal: Yes: Soft ...Rectal Exam: Yes: Deferred Genitourinary: No: Anuria Extremities: Yes: Cool Edema: No Peripheral Pulses WNL: No Peripheral Pulses: Left Doralis Pedis: 1+, Right Dorsalis Pedis: 1+ Integumentary: Yes: WNL Neurological: Yes: Alert, Oriented, Weakness Psychiatric: Yes: Alert, Oriented Labs: CBC, BMP 08/25/17 06:00 08/22/17 07:00 INR, PTT INR 2.44 (0.82-1.09) H 08/27/17 10:20 Problem List - Problems (1) Dehydration Code(s): E86.0 - DEHYDRATION (2) Elevated INR Assessment/Plan: warfarin restarted; therapeutic INR now reached. Code(s): R79.1 - ABNORMAL COAGULATION PROFILE (3) GERD (gastroesophageal reflux disease) Assessment/Plan: also has large hiatal hernia. Code(s): K21.9 - GASTRO-ESOPHAGEAL REFLUX DISEASE WITHOUT ESOPHAGITIS (4) HTN (hypertension) Code(s): I10 - ESSENTIAL (PRIMARY) HYPERTENSION Qualifiers: Hypertension type: essential hypertension Qualified Code(s): I10 - Essential (primary) hypertension; I10 - Essential (primary) hypertension; I10 - Essential (primary) hypertension (5) Back spasm Assessment/Plan: compression fracture. Pain management in progress; on morphine, and Lidocaine patch; has been on Toradol. s/p kyphoplasty. Pain is better-controlled. Code(s): M62.830 - MUSCLE SPASM OF BACK (6) Paroxysmal atrial fibrillation Assessment/Plan: on Bystolic for HR and BP. On warfarin; INR is now therapeutic. Code(s): I48.0 - PAROXYSMAL ATRIAL FIBRILLATION
== END 2017-08-27 14:08 | disposition home health service (06) | DRG 478 ==
LOC: JER 21:27 → JERBED 08-11 02:43 → J4W 08-11 04:36 → J5S 08-18 19:04
PROVIDERS: ADMIT Internal Medicine; ATTEND Internal Medicine
PROC: 0PB43ZX Excision of Thoracic Vertebra, Percutaneous Approach, Diagnostic (ICD-10-PCS; 2017-08-20)
PROC: 0PU43JZ Supplement Thoracic Vertebra with Synthetic Substitute, Percutaneous Approach (ICD-10-PCS; 2017-08-20)
PROC: 0PS43ZZ Reposition Thoracic Vertebra, Percutaneous Approach (ICD-10-PCS; principal; 2017-08-20 18:30)
DX: M80.88XA Other osteoporosis with current pathological fracture, vertebra(e), initial encounter for fracture (principal); K22.10 Ulcer of esophagus without bleeding; E87.1 Hypo-osmolality and hyponatremia; J90 Pleural effusion, not elsewhere classified; R55 Syncope and collapse; E86.0 Dehydration; M54.2 Cervicalgia; M62.830 Muscle spasm of back; K58.8 Other irritable bowel syndrome; E78.5 Hyperlipidemia, unspecified; D50.8 Other iron deficiency anemias; R01.1 Cardiac murmur, unspecified; I10 Essential (primary) hypertension; K44.9 Diaphragmatic hernia without obstruction or gangrene; K82.8 Other specified diseases of gallbladder; G89.29 Other chronic pain; R11.2 Nausea with vomiting, unspecified; M54.5 Low back pain; K21.9 Gastro-esophageal reflux disease without esophagitis; M06.842 Other specified rheumatoid arthritis, left hand; M06.841 Other specified rheumatoid arthritis, right hand; K83.8 Other specified diseases of biliary tract; I08.1 Rheumatic disorders of both mitral and tricuspid valves; I48.0 Paroxysmal atrial fibrillation; J20.9 Acute bronchitis, unspecified; J01.80 Other acute sinusitis; K74.5 Biliary cirrhosis, unspecified; F41.8 Other specified anxiety disorders; R79.1 Abnormal coagulation profile; E87.5 Hyperkalemia; R31.9 Hematuria, unspecified; Z87.891 Personal history of nicotine dependence; Z79.01 Long term (current) use of anticoagulants; Z86.718 Personal history of other venous thrombosis and embolism
CPT/HCPCS: 36415; 70450-TC; 71010-TC; 71101-TC; 71275-TC; 72070-TC; 72128-TC; 76000-TC; 78306-TC; 80048; 80053; 80061; 81003; 81015; 82310; 82550; 82553; 83036; 83721; 83735; 83880; 84100; 84443; 84484; 85025; 85610; 86850; 86900; 86901; 87086; 88305-TC; 88311-TC; 90688; 93005; 93010; 93306-TC; 93880-TC; 94010; 94760; 97116-GP; 97161-GP; 99285-25; A9503; G0008; J1644

== ENCOUNTER 2017-09-22 14:13 | Emergency (ER) | payer BC ==
--- NOTE | 2017-09-22 14:19 | PDOC ---
Rapid Medical Evaluation Time Seen by Provider: 09/22/17 14:16 Medical Evaluation: Allergies Allergy/AdvReac Type Severity Reaction Status Date / Time No Known Allergies Allergy Verified 09/01/17 14:18 09/22/17 14:17 I have performed a brief in-person evaluation of this patient. The patient presents with a chief complaint of: Anorexia w/ weakness and sob x days. Has h/o arthiritis, fibromyalgia, HTN. PMD is Dr Hernandez Pertinent physical exam findings:Appears lethargic but stable I have ordered the following:cbc/chem/trop/bnp/ua The patient will proceed to the ED for further evaluation. Discharge Disposition - Referrals Referrals: Guillaume Hernandez MD [Primary Care Provider] - - Patient Instructions - Post Discharge Activity
[2017-09-22 14:20] VITALS: BMI 21.2
[2017-09-22 14:42] LABS: BASOPHIL 0.8 % (0-2.0); EOSINOPHIL 0.6 % (0-4.5); MCH 26.2 pg (25.7-33.7); MCHC 31.9 g/dl (32.0-36.0); MEAN CELL VOLUME 82.2 fl (80-96); MEAN PLT VOLUME 7.3 fl (7.5-11.1); NEUTROPHILS 60.9 % (42.8-82.8); PLATELET COUNT 297 K/MM3 (134-434); RDW 18.9 % (11.6-15.6); WHITE BLOOD COUNT 10.7 K/mm3 (4.0-10.0)
[2017-09-22 15:09] LABS: ALBUMIN 3.5 g/dl (3.4-5.0); ANION GAP 8 (8-16); BILIRUBIN,TOTAL 0.4 mg/dL (0.2-1.0); CALCIUM 8.5 mg/dL (8.5-10.1); CO2 24 mmol/L (21-32); CREATININE 0.7 mg/dL (0.55-1.02); GLUCOSE,RANDOM 87 mg/dL (74-106); SGOT/AST 23 U/L (15-37); SGPT/ALT 26 U/L (12-78); TOT PROT 6.3 g/dl (6.4-8.2)
[2017-09-22 15:12] LABS: ALK PHOS 112 U/L (45-117); CPK 53 IU/L (26-192); TROPONIN I < 0.02 ng/ml (0.00-0.05)
[2017-09-22] MEDS ORDERED: SODIUM CHLORIDE 500 ML IV STA ×2 (16:38→18:08)
[2017-09-22 17:44] LABS: INR 2.95 (0.82-1.09); PROTHROMBIN TIME (PATIENT) 33.3 SEC (9.98-11.88)
--- NOTE | 2017-09-22 18:08 | PDOC ---
History of Present Illness - General Chief Complaint: Respiratory Stated Complaint: SENT BY PCP Time Seen by Provider: 09/22/17 14:16 History Source: Patient Exam Limitations: No Limitations - History of Present Illness Initial Comments: 09/22/17 21:22 86-year-old female with history of rheumatoid arthritis, DVT on Coumadin, hyperlipidemia presents to the ER with worsening generalized weakness for the past several days, malaise, decreased by mouth intake of solids and liquids and overall feeling of unwell. Patient denies chest pain/abdominal pain/nausea/ vomiting/diarrhea/fever/chills/melena/hematochezia. Patient also endorses history of dyspnea with exertion which has been chronic. Patient was referred to the upper her PCP. REVIEW OF SYSTEMS CONSTITUTIONAL: No fever, no chills, + fatigue EYES: No visual changes ENT: No ear pain, no sore throat CARDIOVASCULAR: No chest pain, no palpitations RESPIRATORY: No cough, no SOB, + new GI: No abdominal pain, no nausea, no vomiting, no constipation, no diarrhea GENITOURINARY: No dysuria, no frequency, no hematuria MUSKULOSKELETAL: No backpain, no joint pain, no myalgias SKIN: No rash NEURO: No headache, generalized weakness; EXAMINATION CONSTITUTIONAL: Well-appearing; well-nourished; in no apparent distress HEAD: Normocephalic; atraumatic EYES: PERRL; EOM intact ENMT: External appears normal; normal oropharynx NECK: Supple; non-tender; no cervical lymphadenopathy CARD: Normal S1, S2; 2/6 semurmurs, no rubs, or gallops RESP: Normal chest excursion with respiration; breath sounds clear and equal bilaterally; no wheezes, rhonchi, or rales ABD: Soft, non-distended; non-tender; no palpable organomegaly, no palpable hernias EXT: Normal ROM in all four extremities; non-tender to palpation; distal pulses intact SKIN: Warm, dry, no rash NEURO: Cranial nerves II through XII are grossly intact; motor is 5 of 54; no pronation drift; gait-stable Past History - Past Medical History Allergies/Adverse Reactions: Allergies Allergy/AdvReac Type Severity Reaction Status Date / Time No Known Allergies Allergy Verified 09/22/17 14:20 Home Medications: Ambulatory Orders Simvastatin [Zocor -] 20 mg PO HS 04/26/13 Pantoprazole Sodium [Protonix -] 40 mg PO DAILY 03/06/14 Sertraline HCl [Zoloft -] 50 mg PO HS 03/06/14 Warfarin Sodium [Coumadin] 5 mg PO Q2D 10/16/16 Warfarin Na [Coumadin -] 2.5 mg PO Q2D #0 tablet 10/20/16 Losartan Potassium [Cozaar -] 100 mg PO DAILY 08/09/17 Acetaminophen [Tylenol .Regular Strength -] 650 mg PO Q6H PRN #0 tablet Cephalexin [Keflex] 500 mg PO BID #14 capsule 09/22/17 Methotrexate [Mexate -] 2.5 mg PO Q7D 09/22/17 Pregabalin [Lyrica -] 300 mg PO BID [facility] 2 09/22/17 Anemia: Yes (iron def with IV iron supplements) Asthma: No Cancer: No Cardiac Disorders: Yes CVA: No COPD: No CHF: No DVT: No Dementia: No Diabetes: No Dialysis: No GI Disorders: Yes (ULCERATED ESOPHAGUS; IRRITABLE BOWEL SYNDR., Hiatal hernia) Disorders: No HTN: Yes Hypercholesterolemia: Yes Kidney Stones: No Liver Disease: No Psychiatric Problems: No Seizures: No Thyroid Disease: No Lung CA: No - Surgical History Abdominal Surgery: No Appendectomy: No Cardiac Surgery: No Cholecystectomy: No Gastric Stapling: No GI Surgery: No Lung Surgery: No Neurologic Surgery: Yes (SPINAL FUSION; LAMINECTOMY) Orthopedic Surgery: Yes (LT CARPAL TUNNEL) - Suicide/Smoking/Psychosocial Hx Smoking Status: Yes Smoking History: Never smoked Have you smoked in the past 12 months: No Number of Cigarettes Smoked Daily: 0 If you are a former smoker, when did you quit?: 50 years ago Hx Alcohol Use: No Drug/Substance Use Hx: No Substance Use Type: None Hx Substance Use Treatment: No *Physical Exam - Vital Signs Last Vital Signs Temp Pulse Resp BP Pulse Ox 97.7 F 83 20 114/61 97 09/22/17 14:17 09/22/17 14:17 09/22/17 14:17 09/22/17 14:17 09/22/17 18:00 Heart Score/ECG Review - ECG Intrepretation Comment:: 09/22/17 21:26 79, normal sinus rhythm, left anterior fascicular block, left axis deviation, no ST-T abnormalities, negative voltage criteria for LVH, borderline abnormal EKG. ED Treatment Course - LABORATORY CBC & Chemistry Diagram: 09/22/17 14:25 09/22/17 14:25 - ADDITIONAL ORDERS Additional order review: Laboratory Results 09/22/17 09/22/17 09/22/17 16:37 14:25 14:25 PT with INR 33.30 H INR 2.95 H Sodium 128 L Potassium 4.3 Chloride 96 L Carbon Dioxide 24 Anion Gap 8 BUN 17 D Creatinine 0.7 D Creat Clearance w eGFR > 60 Random Glucose 87 Calcium 8.5 Total Bilirubin 0.4 D AST 23 ALT 26 Alkaline Phosphatase 112 D Creatine Kinase 53 Troponin I < 0.02 B-Natriuretic Peptide 989.08 H Total Protein 6.3 L Albumin 3.5 09/22/17 14:25 RBC 4.32 MCV 82.2 MCHC 31.9 L RDW 18.9 H MPV 7.3 L Neutrophils % 60.9 D Lymphocytes % 27.2 D Monocytes % 10.5 H Eosinophils % 0.6 D Basophils % 0.8 - Medications Given in the ED: ED Medications Discontinued Medications Generic Name Dose Route Start Last Admin Trade Name Freq PRN Reason Stop Dose Admin Sodium Chloride 500 mls @ 500 mls/hr 09/22/17 16:38 09/22/17 17:05 Normal Saline - IV 09/22/17 17:37 500 mls/hr ASDIR STA Administration Medical Decision Making - Medical Decision Making 09/22/17 21:25 Patient is well-appearing 86-year-old female who presents with generalized weakness, malaise and feeling of unwell. Patient is afebrile, normotensive without focal neurological deficits. CBC/CMP within normal limit. Patient's clinically dehydrated. Received IV fluids, urinalysis reveals pyuria. Will treat with Keflex. Upon completion of IV fluid resuscitation, patient reports improvement in her symptoms and wishes to be discharged. Will discharge with PMD follow-up. *DC/Admit/Observation/Transfer Diagnosis at time of Disposition: Weakness, Dehydration Urinary tract infection Qualifiers: Urinary tract infection type: acute cystitis Hematuria presence: with hematuria Qualified Code(s): N30.01 - Acute cystitis with hematuria - Discharge Dispostion Disposition: HOME Condition at time of disposition: Stable - Prescriptions Prescriptions: Cephalexin [Keflex] 500 mg PO BID #14 capsule - Referrals Referrals: Guillaume Hernandez MD [Primary Care Provider] - - Patient Instructions Printed Discharge Instructions: DI for Urinary Tract Infection (UTI), DI for Muscle Weakness Additional Instructions: keflex may interfere with coumadin. follow up to recheck INR, return for fever , chills, severe pain - Post Discharge Activity
[2017-09-22 18:35] LABS: PH,URINE 6.5 (5.0-8.0); URINE APPEARANCE CLEAR; URINE BILIRUBIN NEGATIVE (NEGATIVE); URINE BLOOD TRACE-INTA (NEGATIVE); URINE COLOR LT. YELLOW; URINE GLUCOSE (UA) NEGATIVE (NEGATIVE); URINE KETONE 1+ (NEGATIVE); URINE NITRITE NEGATIVE (NEGATIVE); URINE UROBILINOGEN 0.2 mg/dL (0.2-1.0)
[2017-09-22 18:39] LABS: URINE PROTEIN 1+ (NEGATIVE)
[2017-09-22 19:10] LABS: URINE BACTERIA RARE /hpf (NONE SEEN); URINE HYALINE CAST 1 /lpf; URINE MUCUS RARE; URINE RBC 21 /hpf (0-3); URINE WBC 54 /hpf (3-5)
[2017-09-22 20:00] VITALS: BP 153/70; PULSE 76; TEMP 97.8
[2017-09-22 21:35] LABS: URINE LEUK ESTERASE 3+ (NEGATIVE)
--- NOTE | 2017-09-23 13:07 | EKG ---
Test Reason : Blood Pressure : / mmHG Vent. Rate : 079 BPM Atrial Rate : 079 BPM P-R Int : 146 ms QRS Dur : 084 ms QT Int : 390 ms P-R-T Axes : 055 -53 060 degrees QTc Int : 447 ms POOR DATA QUALITY, INTERPRETATION MAY BE ADVERSELY AFFECTED NORMAL SINUS RHYTHM LEFT ANTERIOR FASCICULAR BLOCK ABNORMAL ECG WHEN COMPARED WITH ECG OF 11-AUG-2017 01:46, CRITERIA FOR SEPTAL INFARCT ARE NO LONGER PRESENT Confirmed by JOHN PAUL HADLEY MD ([id number]) on 09/23/2017 1:07:10 PM Referred By: Confirmed By:JOHN PAUL HADLEY MD
== END 2017-09-22 20:10 | disposition home or self-care (01) ==
LOC: JER 14:13
PROC: 3E0337Z Introduction of Electrolytic and Water Balance Substance into Peripheral Vein, Percutaneous Approach (ICD-10-PCS; principal; 2017-09-22)
DX: N30.01 Acute cystitis with hematuria (principal); E86.0 Dehydration; I10 Essential (primary) hypertension; M06.9 Rheumatoid arthritis, unspecified; E78.00 Pure hypercholesterolemia, unspecified; D50.8 Other iron deficiency anemias; Z86.718 Personal history of other venous thrombosis and embolism; Z79.01 Long term (current) use of anticoagulants
CPT/HCPCS: 36415; 71010-TC; 80053; 81003; 81015; 82550; 83880; 84443; 84484; 85025; 85610; 87086; 93005; 93010; 96360; 96361; 99285-25

== ENCOUNTER 2017-11-11 07:29 | Day surgery (SDC) | payer BC ==
[2017-11-11] MEDS ORDERED: IRON SUCROSE INJECTION 100 MG in SODIUM CHLORIDE 100 ML IVPB ONE (10:00)
[2017-11-11 13:55] VITALS: TEMP 97.9
[2017-11-11 15:50] VITALS: BP 117/53; PULSE 69
== END 2017-11-11 14:16 | disposition home or self-care (01) ==
LOC: JONCNONCHE 07:29 → J7W 13:08 → JONCNONCHE 14:16
PROVIDERS: ATTEND Internal Medicine Hematology & Oncology
PROC: 3E033GC Introduction of Other Therapeutic Substance into Peripheral Vein, Percutaneous Approach (ICD-10-PCS; principal; 2017-11-11)
DX: E61.1 Iron deficiency (principal); K90.9 Intestinal malabsorption, unspecified
CPT/HCPCS: 96365

== ENCOUNTER 2017-11-24 07:22 | Day surgery (SDC) | payer BC ==
[2017-11-24] MEDS ORDERED: IRON SUCROSE INJECTION 100 MG in SODIUM CHLORIDE 100 ML IVPB ONE (13:00)
[2017-11-24 16:37] VITALS: BP 126/55; PULSE 67; TEMP 97.2
== END 2017-11-24 14:00 | disposition home or self-care (01) ==
LOC: JONCNONCHE 07:22 → J7W 13:00 → JONCNONCHE 14:00
PROVIDERS: ATTEND Internal Medicine Hematology & Oncology
PROC: 3E033GC Introduction of Other Therapeutic Substance into Peripheral Vein, Percutaneous Approach (ICD-10-PCS; principal; 2017-11-24)
DX: E61.1 Iron deficiency (principal); K90.9 Intestinal malabsorption, unspecified
CPT/HCPCS: 96365; J1756

== ENCOUNTER 2017-12-09 07:40 | Day surgery (SDC) | payer BC, OTHER ==
[2017-12-09] MEDS ORDERED: IRON SUCROSE INJECTION 100 MG in SODIUM CHLORIDE 100 ML IVPB ONE (13:00)
[2017-12-09 18:55] VITALS: TEMP 97.3
[2017-12-09 18:59] VITALS: BP 138/50; PULSE 71
== END 2017-12-09 14:25 | disposition home or self-care (01) ==
LOC: JONCNONCHE 07:40 → J7W 13:08 → JONCNONCHE 14:25
PROVIDERS: ATTEND Internal Medicine Hematology & Oncology
PROC: 3E033GC Introduction of Other Therapeutic Substance into Peripheral Vein, Percutaneous Approach (ICD-10-PCS; principal; 2017-12-09)
DX: E61.1 Iron deficiency (principal); K90.9 Intestinal malabsorption, unspecified
CPT/HCPCS: 96365; J1756

== ENCOUNTER 2018-02-02 07:31 | Day surgery (SDC) | payer BC ==
[2018-02-02] MEDS ORDERED: IRON SUCROSE INJECTION 100 MG in SODIUM CHLORIDE 100 ML IVPB ONE (13:00)
[2018-02-02 18:06] VITALS: BP 125/75; PULSE 88; TEMP 97.3
== END 2018-02-02 16:00 | disposition home or self-care (01) ==
LOC: JONCCHEMO 07:31 → J7W 15:00 → JONCCHEMO 16:00
PROVIDERS: ATTEND Internal Medicine Hematology & Oncology
PROC: 3E033GC Introduction of Other Therapeutic Substance into Peripheral Vein, Percutaneous Approach (ICD-10-PCS; principal; 2018-02-02)
DX: E61.1 Iron deficiency (principal)
CPT/HCPCS: 96365; J1756

== ENCOUNTER 2018-06-17 07:23 | Day surgery (SDC) | payer BC ==
[2018-06-17] MEDS ORDERED: IRON SUCROSE INJECTION 100 MG in SODIUM CHLORIDE 100 ML IVPB ONE (10:00)
[2018-06-17 16:57] VITALS: TEMP 97.6
[2018-06-17 16:59] VITALS: BP 142/76; PULSE 64
== END 2018-06-17 11:45 | disposition home or self-care (01) ==
LOC: JONCNONCHE 07:23 → J7W 11:45 → JONCNONCHE 11:45
PROVIDERS: ATTEND Internal Medicine Hematology & Oncology
PROC: 3E033GC Introduction of Other Therapeutic Substance into Peripheral Vein, Percutaneous Approach (ICD-10-PCS; principal; 2018-06-17)
DX: E61.1 Iron deficiency (principal); K90.9 Intestinal malabsorption, unspecified
CPT/HCPCS: 96365; J1756

== ENCOUNTER 2018-08-12 07:43 | Day surgery (SDC) | payer BC ==
[2018-08-12] MEDS ORDERED: IRON SUCROSE INJECTION 100 MG in SODIUM CHLORIDE 100 ML IVPB ONE (10:00)
[2018-08-12 12:12] VITALS: TEMP 97.5
[2018-08-12 13:29] VITALS: BP 149/64; PULSE 62
== END 2018-08-12 13:00 | disposition home or self-care (01) ==
LOC: JONCNONCHE 07:43 → J7W 11:44 → JONCNONCHE 13:00
PROVIDERS: ATTEND Internal Medicine Hematology & Oncology
PROC: 3E033GC Introduction of Other Therapeutic Substance into Peripheral Vein, Percutaneous Approach (ICD-10-PCS; principal; 2018-08-12)
DX: E61.1 Iron deficiency (principal)
CPT/HCPCS: 96365; J1756

== ENCOUNTER 2018-09-12 12:17 | Emergency (ER) | payer BC ==
[2018-09-12 12:38] VITALS: BP 141/70; PULSE 70; TEMP 97.8; BMI 21.2
--- NOTE | 2018-09-12 12:40 | PDOC ---
History of Present Illness - General History Source: Patient Exam Limitations: No Limitations - History of Present Illness Initial Comments: 09/12/18 14:52 The patient is a 87 year old female, with a significant past medical history of fibromyalgia, ulcerated esophagus, IBS, HTN and HLD, who presents to the emergency department with, bilateral upper thoracic back pain. As per patient, her symptoms onset 5 days ago initially as left upper thoracic while brushing her teeth. She notes her pain has since radiated to her right upper thoracic back. She notes taking Tramadol (last dosage 10am) and Gabapentin for her pain, without relief. She denies any paresthesias. She denies any change in sensation or urinary/ bowel incontinence. She denies any recent head or neck trauma. She denies recent fevers, chills, headache or dizziness. She denies recent nausea, vomit, diarrhea or constipation. She denies recent dysuria, frequency, urgency or hematuria. She denies recent chest pain or shortness of breath. Allergies: None Past surgical history: Spinal fusion, laminectomy, left carpal tunnel Social history: Former smoker. No alcohol or drug use reported Primary Care Physician: Dr. Hernandez Cattle Examiner: Dr. Deleon Head Silverman: Dr. Willson <Porsha Kuo - Last Filed: 09/12/18 14:51> <Meme Whitehead - Last Filed: 09/12/18 15:07> - General Chief Complaint: Back Pain Stated Complaint: BACK PAIN Time Seen by Provider: 09/12/18 12:18 Past History <Porsha Kuo - Last Filed: 09/12/18 14:51> - Past Medical History Anemia: Yes (iron def with IV iron supplements) Asthma: No Cancer: No Cardiac Disorders: Yes CVA: No COPD: No CHF: No DVT: No Dementia: No Diabetes: No Dialysis: No GI Disorders: Yes (ULCERATED ESOPHAGUS; IRRITABLE BOWEL SYNDR., Hiatal hernia) Disorders: No HTN: Yes Hypercholesterolemia: Yes Kidney Stones: No Liver Disease: No Psychiatric Problems: No Seizures: No Thyroid Disease: No Lung CA: No - Surgical History Abdominal Surgery: No Appendectomy: No Cardiac Surgery: No Cholecystectomy: No Gastric Stapling: No GI Surgery: No Lung Surgery: No Neurologic Surgery: Yes (SPINAL FUSION; LAMINECTOMY) Orthopedic Surgery: Yes (LT CARPAL TUNNEL) - Suicide/Smoking/Psychosocial Hx Smoking Status: Yes Smoking History: Former smoker Have you smoked in the past 12 months: No Number of Cigarettes Smoked Daily: 0 If you are a former smoker, when did you quit?: 50 years ago Information on smoking cessation initiated: No Hx Alcohol Use: No Drug/Substance Use Hx: No Substance Use Type: None Hx Substance Use Treatment: No <Meme Whitehead - Last Filed: 09/12/18 15:07> - Past Medical History Allergies/Adverse Reactions: Allergies Allergy/AdvReac Type Severity Reaction Status Date / Time No Known Allergies Allergy Verified 09/22/17 14:20 Home Medications: Ambulatory Orders Simvastatin [Zocor -] 20 mg PO HS 04/26/13 Pantoprazole Sodium [Protonix -] 40 mg PO DAILY 03/06/14 Sertraline HCl [Zoloft -] 50 mg PO HS 03/06/14 Warfarin Sodium [Coumadin] 5 mg PO Q2D 10/16/16 Warfarin Na [Coumadin -] 2.5 mg PO Q2D #0 tablet 10/20/16 Losartan Potassium [Cozaar -] 100 mg PO DAILY 08/09/17 Methotrexate [Mexate -] 2.5 mg PO Q7D 09/22/17 Diltiazem Cd [Cardizem Cd -] 120 mg PO DAILY 09/12/18 Gabapentin 300 mg PO BID 09/12/18 Tramadol HCl 50 mg PO BID 09/12/18 predniSONE [Deltasone -] 5 mg PO DAILY 09/12/18 Review of Systems - Review of Systems Able to Perform ROS?: Yes Comments:: 09/12/18 14:52 GENERAL/CONSTITUTIONAL: No fever or chills. No weakness. HEAD, EYES, EARS, NOSE AND THROAT: No change in vision. No ear pain or discharge. No sore throat. GASTROINTESTINAL: No nausea, vomiting, diarrhea or constipation. GENITOURINARY: No dysuria, frequency, or change in urination. CARDIOVASCULAR: No chest pain or shortness of breath. RESPIRATORY: No cough, wheezing, or hemoptysis. +MUSCULOSKELETAL:Upper thoracic back pain. No joint or muscle swelling or pain. No neck pain. SKIN: No rash NEUROLOGIC: No headache, vertigo, loss of consciousness, or change in strength/ sensation. ENDOCRINE: No increased thirst. No abnormal weight change. HEMATOLOGIC/LYMPHATIC: No anemia, easy bleeding, or history of blood clots. ALLERGIC/IMMUNOLOGIC: No hives or skin allergy. <DarioPb mooreromeoevangelina - Last Filed: 09/12/18 14:51> *Physical Exam - Vital Signs Last Vital Signs Temp Pulse Resp BP Pulse Ox 97.8 F 70 20 141/70 100 09/12/18 12:18 09/12/18 12:18 09/12/18 12:18 09/12/18 12:18 09/12/18 12:18 - Physical Exam Comments: 09/12/18 14:52 Constitutional: Awake, alert, oriented. No acute distress. Head: Normocephalic. Atraumatic Eyes: PERRL. EOMI. Conjunctivae are not pale. ENT: Mucous membranes are moist and intact. Posterior pharynx without exudates or erythema. Uvula midline. Neck: Supple. Full ROM. No lymphadenopathy. Cardiovascular: Regular rate. Regular rhythm. S1, S2 regular. Distal pulses are 2+ and symmetric. Pulmonary/Chest: No evidence of respiratory distress. Clear to auscultation bilaterally No wheezing, rales or rhonchi. Abdominal: Soft and non-distended. There is no tenderness. No rebound, guarding or rigidity. No organomegaly. No palpable masses. Good bowel sounds. Back: No CVA tenderness. Musculoskeletal: No edema. No cyanosis. No clubbing. Full range of motion in all extremities. No calf tenderness. Radial/pedal pulses are intact and 2+ bilaterally Skin: Skin is warm and dry. No petechiae. No purpura. +Neurological: Tenderness on palpation to the bilateral upper thoracic. No step -off or deformity. Alert and oriented to person, place, and time. Cranial nerves II-XII are grossly intact. Normal speech. Strength is grossly symmetric. No sensory deficits. Psychiatric: Good eye contact. Normal interaction, affect and behavior. <ShielaPorsha - Last Filed: 09/12/18 14:51> - Vital Signs Last Vital Signs Temp Pulse Resp BP Pulse Ox 97.8 F 70 20 141/70 100 09/12/18 12:18 09/12/18 12:18 09/12/18 12:18 09/12/18 12:18 09/12/18 12:18 <Meme Whitehead - Last Filed: 09/12/18 15:07> Heart Score/ECG Review - ECG Intrepretation Comment:: 09/12/18 13:57 sinus at 69, nl axis, lafb, q waves septally that are age indeterminate, no acute st/t wave findigns <Meme Whitehead - Last Filed: 09/12/18 15:07> ED Treatment Course - LABORATORY CBC & Chemistry Diagram: 09/12/18 13:30 09/12/18 13:30 - ADDITIONAL ORDERS Additional order review: Laboratory Results 09/12/18 09/12/18 09/12/18 13:30 13:30 13:30 PT with INR 29.6 H INR 2.70 H Sodium Potassium Chloride Carbon Dioxide Anion Gap BUN Creatinine Creat Clearance w eGFR Random Glucose Calcium Total Bilirubin AST ALT Alkaline Phosphatase Creatine Kinase 54 Troponin I 0.03 Total Protein Albumin 09/12/18 13:30 PT with INR INR Sodium 129 L Potassium 4.6 Chloride 90 L Carbon Dioxide 30 H Anion Gap 9 BUN 15 Creatinine 0.6 Creat Clearance w eGFR > 60 Random Glucose 95 Calcium 9.2 Total Bilirubin 0.8 AST 32 ALT 32 Alkaline Phosphatase 107 H Creatine Kinase Troponin I Total Protein 6.7 Albumin 4.0 09/12/18 13:30 RBC 4.77 MCV 89.8 MCHC 32.1 RDW 18.1 H MPV 7.1 L Neutrophils % Residential Sales Associate Lymphocytes % Residential Sales Associate Monocytes % Residential Sales Associate Eosinophils % Residential Sales Associate Basophils % Residential Sales Associate - Medications Given in the ED: ED Medications Discontinued Medications Generic Name Dose Route Start Last Admin Trade Name Kerwin PRN Reason Stop Dose Admin Gabapentin 300 mg 09/12/18 14:31 09/12/18 14:46 Neurontin - PO 09/12/18 14:32 300 mg ONCE ONE Administration Lidocaine 1 patch 09/12/18 14:32 09/12/18 14:46 Lidoderm Patch - TP 09/12/18 14:33 1 patch ONCE ONE Administration Methocarbamol 1,000 mg 09/12/18 12:42 09/12/18 13:03 Robaxin - PO 09/12/18 12:43 1,000 mg ONCE ONE Administration Oxycodone/Acetaminophen 1 combo 09/12/18 12:42 09/12/18 13:02 Percocet 5/325 - PO 09/12/18 12:43 1 combo ONCE ONE Administration <Porsha Kuo - Last Filed: 09/12/18 14:51> - LABORATORY CBC & Chemistry Diagram: 09/12/18 13:30 09/12/18 13:30 <Meme Whitehead - Last Filed: 09/12/18 15:07> Medical Decision Making - Medical Decision Making 09/12/18 14:55 a/p: <Meme Whitehead - Last Filed: 09/12/18 15:07> *DC/Admit/Observation/Transfer - Attestations Scribe Attestion: 09/12/18 14:52 Documentation prepared by Porsha Kuo, acting as center medical and lab director for Meme Whitehead DO. <Porsha Kuo - Last Filed: 09/12/18 14:51> - Discharge Dispostion Decision to Admit order: No - Attestations Physician Attestion: 09/12/18 14:54 I, Dr. Meme Whitehead DO, attest that this document has been prepared under my direction and personally reviewed by me in its entirety. I further attest, that it accurately reflects all work, treatment, procedures and medical decision -making performed by me. <Meme Whitehead - Last Filed: 09/12/18 15:07> Diagnosis at time of Disposition: Thoracic back pain - Discharge Dispostion Disposition: HOME Condition at time of disposition: Stable - Referrals Referrals: Vadim Ferrer MD, [facility] [Staff Physician] - Guillaume Hernandez MD [Staff Physician] - - Patient Instructions Printed Discharge Instructions: DI for Thoracic Back Pain Additional Instructions: Please take all medications as previously prescribed. Please follow up with your industrial relations specialist and with your PMD this week. Please return to the ED with any further concerns or complaints.
[2018-09-12] MEDS ORDERED: METHOCARBAMOL 500 MG TABLET PO ONE (12:42)
[2018-09-12] MEDS ORDERED: METHOCARBAMOL 500 MG TABLET ONE (13:00)
[2018-09-12 14:02] LABS: HEMATOCRIT 42.9 % (32.4-45.2); HEMOGLOBIN 13.8 GM/dl (10.7-15.3); MCH 28.8 pg (25.7-33.7); MCHC 32.1 g/dl (32.0-36.0); MEAN CELL VOLUME 89.8 fl (80-96); MEAN PLT VOLUME 7.1 fl (7.5-11.1); PLATELET COUNT 277 K/MM3 (134-434); RBC 4.77 M/mm3 (3.60-5.2); RDW 18.1 % (11.6-15.6); WHITE BLOOD COUNT 11.5 K/mm3 (4.0-10.8)
[2018-09-12 14:12] LABS: ALK PHOS 107 U/L (32-92); ANION GAP 9 MMOL/L (8-16); BILIRUBIN,TOTAL 0.8 mg/dl (0.2-1.0); BLOOD UREA NITROGEN 15 mg/dl (7-18); CALCIUM 9.2 mg/dl (8.4-10.2); CHLORIDE 90 mmol/L (98-107); CO2 30 mmol/L (22-28); CREATININE 0.6 mg/dl (0.6-1.3); GLUCOSE,RANDOM 95 mg/dl (74-106); POTASSIUM 4.6 mmol/L (3.5-5.1); SGOT/AST 32 U/L (10-42); SGPT/ALT 32 U/L (10-40); SODIUM 129 mmol/L (136-145); TOT PROT 6.7 g/dl (6.4-8.3)
[2018-09-12 14:14] LABS: INR 2.7 (0.82-1.09); PROTHROMBIN TIME (PATIENT) 29.6 SEC (10.2-13.0)
[2018-09-12] MEDS ORDERED: GABAPENTIN 300 MG CAPSULE (FP) PO ONE (14:31)
[2018-09-12] MEDS ORDERED: LIDOCAINE 5% TOPICAL PATCH TP ONE (14:32)
[2018-09-12] MEDS ORDERED: GABAPENTIN 300 MG CAPSULE (FP) ONE (14:43)
[2018-09-12] MEDS ORDERED: LIDOCAINE 5% TOPICAL PATCH ONE (14:44)
[2018-09-12] MEDS ORDERED: LIDOCAINE PATCH REMOVAL MC SCH (22:00)
--- NOTE | 2018-09-13 10:34 | EKG ---
Test Reason : Blood Pressure : / mmHG Vent. Rate : 069 BPM Atrial Rate : 069 BPM P-R Int : 154 ms QRS Dur : 104 ms QT Int : 396 ms P-R-T Axes : 058 -47 059 degrees QTc Int : 424 ms NORMAL SINUS RHYTHM LEFT ANTERIOR FASCICULAR BLOCK SEPTAL INFARCT , AGE UNDETERMINED ABNORMAL ECG WHEN COMPARED WITH ECG OF 22-SEP-2017 16:51, QRS DURATION HAS INCREASED SEPTAL INFARCT IS NOW PRESENT Confirmed by Néstor Quiroz MD ([id number]) on 09/13/2018 10:33:30 AM Referred By: LORENA Confirmed By:Néstor Quiroz MD
== END 2018-09-12 15:04 | disposition home or self-care (01) ==
LOC: FER 12:17
DX: M54.6 Pain in thoracic spine (principal); M79.7 Fibromyalgia; K58.9 Irritable bowel syndrome, unspecified; I10 Essential (primary) hypertension; E78.5 Hyperlipidemia, unspecified; D50.9 Iron deficiency anemia, unspecified; Z79.01 Long term (current) use of anticoagulants
CPT/HCPCS: 36415; 71046-TC-FY; 72070-TC-FY; 80053; 82550; 84484; 85025; 85610; 93005; 99283-25

== ENCOUNTER 2018-11-30 07:13 | Day surgery (SDC) | payer BC ==
[2018-11-30] MEDS ORDERED: IRON SUCROSE INJECTION 100 MG in SODIUM CHLORIDE 100 ML IVPB ONE (10:00)
[2018-11-30 16:44] VITALS: PULSE 63; TEMP 98
[2018-11-30 16:47] VITALS: BP 135/72
== END 2018-11-30 13:30 | disposition home or self-care (01) ==
LOC: JONCCHEMO 07:13 → J7W 12:10 → JONCCHEMO 13:00
PROVIDERS: ATTEND Internal Medicine Hematology & Oncology
PROC: 3E033GC Introduction of Other Therapeutic Substance into Peripheral Vein, Percutaneous Approach (ICD-10-PCS; principal; 2018-11-30)
DX: D50.9 Iron deficiency anemia, unspecified (principal)
CPT/HCPCS: 96365; J1756

== ENCOUNTER 2019-01-27 07:24 | Day surgery (SDC) | payer BC ==
[2019-01-27] MEDS ORDERED: IRON SUCROSE INJECTION 200 MG in SODIUM CHLORIDE 100 ML IVPB ONE (10:00)
[2019-01-27 13:46] VITALS: TEMP 97.4
[2019-01-27 13:47] VITALS: BP 126/59; PULSE 55
== END 2019-01-27 12:45 | disposition home or self-care (01) ==
LOC: JONCCHEMO 07:24 → J7W 11:34 → JONCCHEMO 12:45
PROVIDERS: ATTEND Internal Medicine Hematology & Oncology
PROC: 3E033GC Introduction of Other Therapeutic Substance into Peripheral Vein, Percutaneous Approach (ICD-10-PCS; principal; 2019-01-27)
DX: D50.9 Iron deficiency anemia, unspecified (principal)
CPT/HCPCS: 96365; J1756

== ENCOUNTER 2019-04-24 06:38 | Day surgery (SDC) | payer BC ==
[2019-04-24] MEDS ORDERED: IRON SUCROSE INJECTION 200 MG in SODIUM CHLORIDE 100 ML IVPB ONE (09:00)
[2019-04-24 16:44] VITALS: BP 140/63; PULSE 57; TEMP 97.6
== END 2019-04-24 15:15 | disposition home or self-care (01) ==
LOC: JONCNONCHE 06:38 → J7W 13:25 → JONCNONCHE 15:15
PROVIDERS: ATTEND Internal Medicine Hematology & Oncology
PROC: 3E033GC Introduction of Other Therapeutic Substance into Peripheral Vein, Percutaneous Approach (ICD-10-PCS; principal; 2019-04-24)
DX: D50.9 Iron deficiency anemia, unspecified (principal)
CPT/HCPCS: 96365; J1756

== ENCOUNTER 2019-05-29 07:16 | Day surgery (SDC) | payer BC ==
[2019-05-29] MEDS ORDERED: IRON SUCROSE INJECTION 200 MG in SODIUM CHLORIDE 100 ML IVPB ONE (10:00)
[2019-05-29 14:06] VITALS: TEMP 97.7
[2019-05-29 14:09] VITALS: BP 135/57; PULSE 60
== END 2019-05-29 14:09 | disposition home or self-care (01) ==
LOC: JONCNONCHE 07:16 → J7W 12:39 → JONCNONCHE 14:09
PROVIDERS: ATTEND Internal Medicine Hematology & Oncology
PROC: 3E033GC Introduction of Other Therapeutic Substance into Peripheral Vein, Percutaneous Approach (ICD-10-PCS; principal; 2019-05-29)
DX: D50.9 Iron deficiency anemia, unspecified (principal)
CPT/HCPCS: 96365; J1756

== ENCOUNTER 2019-09-14 07:20 | Day surgery (SDC) | payer BC ==
[2019-09-13 15:23] VITALS: BMI 20.2
[2019-09-14 07:44] LABS: BASO % 0.8 % (0-2.0); EOS % 1.3 % (0-4.5); HEMATOCRIT 39.1 % (32.4-45.2); HEMOGLOBIN 13.1 GM/dL (10.7-15.3); LYMPH % 37.2 % (8-40); MCH 31.5 pg (25.7-33.7); MCHC 33.5 g/dl (32.0-36.0); MEAN CELL VOLUME 94.2 fl (80-96); MEAN PLT VOLUME 6.9 fl (7.5-11.1); MONO % 7.1 % (3.8-10.2); NEUT % 53.6 % (42.8-82.8); PLATELET COUNT 232 K/MM3 (134-434); RBC 4.15 M/mm3 (3.60-5.2); RDW 15.9 % (11.6-15.6); WHITE BLOOD COUNT 5.8 K/mm3 (4.0-10.0)
[2019-09-14 07:56] LABS: INR 1.37 (0.83-1.09); PROTHROMBIN TIME (PATIENT) 16.2 SEC (9.7-13.0)
[2019-09-14] MEDS ORDERED: PROPOFOL 20 ML ONE (08:28)
[2019-09-14] MEDS ORDERED: MIDAZOLAM HCL 2 MG/2 ML SINGLE DOSE VIAL ONE (08:29)
[2019-09-14 08:32] LABS: ALBUMIN 3.4 g/dl (3.4-5.0); BILIRUBIN,TOTAL 0.7 mg/dL (0.2-1); BLOOD UREA NITROGEN 20.3 mg/dL (7-18); CREATININE 0.6 mg/dL (0.55-1.3); POTASSIUM 4.6 mmol/L (3.5-5.1); TOT PROT 5.9 g/dl (6.4-8.2)
[2019-09-14] MEDS ORDERED: HEPARIN NA (PORCINE) 5,000 UNITS/ML 1ML VIAL ONE ×2 (08:33→09:13)
[2019-09-14] MEDS ORDERED: SODIUM CHLORIDE 0.9% P/F 10 ML VIAL IJ ONE (08:37)
[2019-09-14] MEDS ORDERED: ceFAZolin SODIUM 1 GM VIAL ONE (08:37)
[2019-09-14] MEDS ORDERED: LIDOCAINE HCL 1%, 10 MG/ML (20ML VIAL) ONE (09:13)
[2019-09-14] MEDS ORDERED: oxyCODONE HCL 5 MG TABLET PO PRN (09:32)
[2019-09-14] MEDS ORDERED: ONDANSETRON 4 MG/2 ML VIAL IVPUSH PRN (09:32)
[2019-09-14] MEDS ORDERED: LACTATED RINGERS SOLUTION 1,000 ML IV SCH (09:45)
--- NOTE | 2019-09-14 10:04 | HP ---
Admitting History and Physical - Admission Chief Complaint: left third toe pain. Erythema. US shows popliteal disease. Pt needs angiogram. Limitations to Obtaining History: No Limitations - Past Medical History Cardiovascular: Yes: HTN, Hyperlipdemia Gastrointestinal: Yes: GERD Heme/Onc: Yes: Other (DVT and has been on chronic anticoagulation) Rheumatology: Yes: Rheumatoid Arthritis - Past Surgical History Past Surgical History: Yes: Cataract Removal, Laminectomy - Smoking History Smoking history: Former smoker Have you smoked in the past 12 months: No Aproximately how many cigarettes per day: 0 If you are a former smoker, when did you quit?: 50 years ago - Alcohol/Substance Use Hx Alcohol Use: No History of Substance Use: reports: None - Social History ADL: Independent 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 History of Recent Travel: No Home Medications - Allergies Allergies/Adverse Reactions: Allergies Allergy/AdvReac Type Severity Reaction Status Date / Time No Known Allergies Allergy Verified 09/14/19 08:43 - Home Medications Home Medications: Ambulatory Orders Simvastatin [Zocor -] 20 mg PO HS 04/26/13 Pantoprazole Sodium [Protonix -] 40 mg PO DAILY 03/06/14 Warfarin Sodium [Coumadin] 5 mg PO Q2D 10/16/16 Warfarin Na [Coumadin -] 2.5 mg PO Q2D #0 tablet 10/20/16 Methotrexate [Mexate -] 2.5 mg PO Q7D 09/22/17 Gabapentin 300 mg PO BID 09/12/18 predniSONE [Deltasone -] 5 mg PO DAILY 09/12/18 Certolizumab Pegol [Cimzia] 800 mg IM Q30D 11/11/18 Diltiazem HCl [Cartia Xt] 120 mg PO DAILY 09/14/19 Metoprolol Tartrate 50 mg PO HS 09/14/19 Teriparatide [Forteo] 0.8 ml SQ DAILY 09/14/19 Valsartan 160 mg PO DAILY 09/14/19 Review of Systems - Review of Systems Constitutional: reports: No Symptoms Eyes: reports: No Symptoms HENT: reports: No Symptoms Neck: reports: No Symptoms Cardiovascular: reports: No Symptoms Respiratory: reports: No Symptoms Gastrointestinal: reports: No Symptoms Genitourinary: reports: No Symptoms Musculoskeletal: reports: No Symptoms Integumentary: reports: No Symptoms Neurological: reports: No Symptoms Endocrine: reports: No Symptoms, Unexplained Weight Gain Psychiatric: reports: No Symptoms Physical Examination Vital Signs: Vital Signs Temperature 97.4 F L 09/14/19 08:31 Pulse Rate 67 09/14/19 08:31 Respiratory Rate 20 09/14/19 08:31 Blood Pressure 138/71 09/14/19 08:31 O2 Sat by Pulse Oximetry (%) 95 09/14/19 08:30 Constitutional: Yes: Well Nourished, No Distress, Calm Eyes: Yes: WNL, Conjunctiva Clear, EOM Intact HENT: Yes: WNL, Atraumatic, Normocephalic Neck: Yes: WNL, Supple, Trachea Midline Cardiovascular: Yes: WNL, Regular Rate and Rhythm Respiratory: Yes: WNL, Regular, CTA Bilaterally Gastrointestinal: Yes: WNL, Normal Bowel Sounds Musculoskeletal: Yes: WNL Extremities: Yes: WNL Edema: No Peripheral Pulses WNL: No Integumentary: Yes: WNL Neurological: Yes: WNL, Alert, Oriented ...Motor Strength: WNL Psychiatric: Yes: WNL Labs: CBC, BMP 09/14/19 07:32 09/14/19 07:32 Problem List - Problems (1) Left foot pain Assessment/Plan: For angiogram today to open infrapopliteal circulation Code(s): M79.672 - PAIN IN LEFT FOOT
[2019-09-14] MEDS ORDERED: ceFAZolin SODIUM 1 GM VIAL IVPB ONE (10:25)
[2019-09-14] MEDS ORDERED: LIDOCAINE HCL 1%, 10 MG/ML (50 mL VIAL) IJ ONE (10:33)
[2019-09-14] MEDS ORDERED: ePHEDrine SULFATE 50 MG/1 ML AMPULE ONE (10:36)
[2019-09-14] MEDS ORDERED: HEPARIN NA (PORCINE) 5,000 UNITS/ML 1ML VIAL SQ ONE (10:43)
--- NOTE | 2019-09-14 11:21 | OP ---
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
[2019-09-14 14:57] VITALS: BP 121/60; PULSE 77; TEMP 97.8
--- NOTE | 2019-10-05 12:39 | OP ---
DATE OF OPERATION: 09/14/2019 PREOPERATIVE DIAGNOSIS: Left lower extremity claudication. POSTOPERATIVE DIAGNOSIS: Left lower extremity claudication. PROCEDURE: Aortogram, left lower extremity angiogram, popliteal artery atherectomy with angioplasty. FINDINGS: Popliteal artery stenosis of 95%. SURGEON: Moose Sales DO ANESTHESIA: Fractional. BLOOD LOSS: 50 mL. INDICATIONS: Patient is an 88-year-old female who complains of left 3rd toe ischemia. She has had the pain, and now the pain is unbearable. She had an ultrasound performed preoperatively showing that there is significant disease in the popliteal artery to almost near occlusion. It was decided that she would need medical and cardiology clearance. After that was obtained, we came into ambulatory surgery for an angiogram. Patient was consented for the procedure understanding all risks, benefits, and alternatives then brought to the operating room. DESCRIPTION OF PROCEDURE: Once in the operating room, was laid on the operative table in supine position, and the area of the left and right groin were prepped and draped in a sterile surgical manner. We then injected 10 mL of lidocaine 1% over the right common femoral artery. We then took our micropuncture needle, punctured the right common femoral artery. Micropuncture wire was inserted. Micropuncture sheath was inserted, and a traditional 5-Martiniquais sheath was inserted. A 0.035 floppy guidewire was inserted into the aorta followed by an Omni Flush catheter. We then shot an aortogram via hand injection showing that the aorta and the iliac arteries were without any disease. We then used our 0.035 floppy guidewire and went up and over to the left common femoral artery and Omni Flush catheter followed. We shot an angiogram of the left lower extremity showing that the common femoral artery and profunda were patent. The SFA was patent. The above-knee popliteal artery was 100% occluded. Below-knee popliteal artery was patent, and patient had 1-vessel runoff into the foot . At this point, we placed a 0.035 stiff guidewire down into the SFA. Removed our Omni Flush catheter. Placed a 6 x 45 crossover sheath, 5000 units of IV heparin were administered to the patient. We then went ahead and used a Quick-Cross catheter and got down to our occlusion and 0.035 stiff guidewire, and we were able to selectively cross the lesion and placed a wire in the below-knee popliteal artery. We then exchanged our wire to an 0.014 wire for atherectomy. We then went ahead and performed a CSI orbital atherectomy on low and medium. After that, we then went ahead and used a 6 x 4 balloon and performed angioplasty of the above-knee popliteal artery. Completion angiogram now showed that the artery was patent. There was good runoff into the foot. There was no dissection at the site of the angioplasty. At this point, no more intervention was needed. Brought our sheath up and over. StarClose device was successfully deployed in the right common femoral artery. Pressure held for 5 minutes. After there was no bleeding, the area was wet and dried, and Dermabond was placed. Patient tolerated the procedure with no complication. Patient transferred to the PACU in stable condition. MOOSE SALES DO [id number]
== END 2019-09-14 14:00 | disposition home or self-care (01) ==
LOC: JASU-SURG 07:20
PROVIDERS: ATTEND Surgery Vascular Surgery
PROC: 047N3ZZ Dilation of Left Popliteal Artery, Percutaneous Approach (ICD-10-PCS; principal; 2019-09-14 09:00)
DX: I70.212 Atherosclerosis of native arteries of extremities with intermittent claudication, left leg (principal)
CPT/HCPCS: 37225; C1885; 36415; 76000-TC-FY; 80053; 85025; 85610; 94760; J1644

== ENCOUNTER 2019-09-22 07:13 | Day surgery (SDC) | payer BC ==
--- NOTE | 2019-09-22 07:43 | PDOC ---
Attending Attestation - Resident Resident Name: Seema Dejesus - HPI HPI: 09/22/19 09:20 pt presents to the ED complaining of toe pain. Sent by Dr. Goodwin for admission for stent placement after US on Wednesday. Denies new complaints. - Physicial Exam PE: 09/22/19 09:21 Agree with resident exam. PAtient is well appearing and in no acute distress. Complaining of L leg and toe pain. 09/22/19 09:47 - Medical Decision Making 09/22/19 09:49 Pt presents to the ED complaining of L leg pain. 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 Patient will be admitted to Dr. Goodwin for surgery tomorrow.
--- NOTE | 2019-09-22 07:45 | PDOC ---
History of Present Illness - General Chief Complaint: Pain, Acute Stated Complaint: PCP SENT Time Seen by Provider: 09/22/19 07:38 - History of Present Illness Initial Comments: 09/22/19 08:10 HPI: 88 y/o F with hx of anemia, HTN, OA, HLD, PAD presenting to the ED for left leg pain. Patient reports angioplasty 1 week ago showing 95% stenosis of left popliteal artery. Patient proceeded to wound care clinic 2 days ago and was told to come to the ED for further eval and stent procedure. Patient states she has chronic left leg pain but has been having increasing popliteal and calf pain recently. She denies any mottling, erythema, cold foot. She denies fever, chills, chest pain, SOB, abd pain, n/v, falls, syncope. Patient is currently NPO. PMHx: as noted above ROS: as noted SHx: Denies tobacco use; no alcohol use; no rec drugs Allergies: NKDA ROS: GENERAL/CONSTITUTIONAL: No fever or chills. No weakness. HEAD, EYES, EARS, NOSE AND THROAT: No change in vision. No ear pain or discharge. No sore throat. CARDIOVASCULAR: No chest pain or shortness of breath RESPIRATORY: No cough, wheezing, or hemoptysis. GASTROINTESTINAL: No nausea, vomiting, diarrhea or constipation. GENITOURINARY: No dysuria, frequency, or change in urination. MUSCULOSKELETAL: +left leg pain SKIN: No rash NEUROLOGIC: No headache, vertigo, loss of consciousness, or change in strength/ sensation. ENDOCRINE: No increased thirst. No abnormal weight change HEMATOLOGIC/LYMPHATIC: No anemia, easy bleeding, or history of blood clots. ALLERGIC/IMMUNOLOGIC: No hives or skin allergy. PE: GENERAL: Awake, alert, and fully oriented, no acute distress HEAD: No signs of trauma, normocephalic, atraumatic EYES: EOMI, sclera anicteric, conjunctiva clear ENT: Auricles normal inspection, hearing grossly normal, nares patent, oropharynx clear without exudates. Moist mucosa NECK: Normal ROM, no lymphadenopathy LUNGS: No increased work of breathing, symmetrical chest rise, clear to auscultation bilaterally, no wheezes, crackles or rhonchi HEART: Regular rate and rhythm, normal S1 and S2, no murmurs, peripheral pulses 2+ and equal bilaterally. ABDOMEN: Soft, nondistended, nontender, normoactive bowel sounds. No guarding, no rebound. No masses. No CVAT EXTREMITIES: Normal inspection, Normal range of motion, no edema. No clubbing or cyanosis. Right leg with 1+ pulses popliteal/DP/PT; Left leg with diminished pulses, but leg is warm nontender and intact ROM, left calf ttp NEUROLOGICAL: Cranial nerves II through XII grossly intact. Normal speech, normal gait, no focal sensorimotor deficits SKIN: Warm, Dry, normal turgor, no rashes or lesions noted Past History - Past Medical History Allergies/Adverse Reactions: Allergies Allergy/AdvReac Type Severity Reaction Status Date / Time No Known Allergies Allergy Verified 09/22/19 07:25 Home Medications: Ambulatory Orders Simvastatin [Zocor -] 20 mg PO HS 04/26/13 Pantoprazole Sodium [Protonix -] 40 mg PO DAILY 03/06/14 Warfarin Sodium [Coumadin] 5 mg PO Q2D 10/16/16 Warfarin Na [Coumadin -] 2.5 mg PO Q2D #0 tablet 10/20/16 Methotrexate [Mexate -] 2.5 mg PO Q7D 09/22/17 Gabapentin 300 mg PO BID 09/12/18 predniSONE [Deltasone -] 5 mg PO DAILY 09/12/18 Certolizumab Pegol [Cimzia] 800 mg IM Q30D 11/11/18 Diltiazem HCl [Cartia Xt] 120 mg PO DAILY 09/14/19 Metoprolol Tartrate 50 mg PO HS 09/14/19 Teriparatide [Forteo] 0.8 ml SQ DAILY 09/14/19 Valsartan 160 mg PO DAILY 09/14/19 Anemia: Yes (iron def with IV iron supplements) Asthma: No Cancer: No Cardiac Disorders: Yes CVA: No COPD: No CHF: No DVT: No Dementia: No Diabetes: No Dialysis: No GI Disorders: Yes (ULCERATED ESOPHAGUS; IRRITABLE BOWEL SYNDR., Hiatal hernia) Disorders: No HTN: Yes Hypercholesterolemia: Yes Kidney Stones: No Liver Disease: No Psychiatric Problems: No Seizures: No Thyroid Disease: No Lung CA: No - Surgical History Abdominal Surgery: No Appendectomy: No Cardiac Surgery: No Cholecystectomy: No Gastric Stapling: No GI Surgery: No Lung Surgery: No Neurologic Surgery: Yes (SPINAL FUSION; LAMINECTOMY, Kyphoplasty) Orthopedic Surgery: Yes (LT CARPAL TUNNEL) - Immunization History Immunization Up to Date: Yes - Psycho Social/Smoking Cessation Hx Smoking Status: Yes Smoking History: Former smoker Have you smoked in the past 12 months: No Number of Cigarettes Smoked Daily: 0 If you are a former smoker, when did you quit?: 50 years ago Information on smoking cessation initiated: No Hx Alcohol Use: No Drug/Substance Use Hx: No Substance Use Type: None Hx Substance Use Treatment: No *Physical Exam - Vital Signs Last Vital Signs Temp Pulse Resp BP Pulse Ox 97.6 F 69 17 128/72 98 09/22/19 07:20 09/22/19 07:20 09/22/19 07:20 09/22/19 07:20 09/22/19 07:20 Medical Decision Making - Medical Decision Making 09/22/19 08:18 88 y/o F with hx of anemia, HTN, OA, HLD, PAD presenting to the ED for left leg pain and for further eval for left popliteal stent. VSS, AF. -discussed with Dr Goodwin; patient will be admitted under him proceed to OR -cbc, bmp, coags, ekg Discharge - Discharge Information Problems reviewed: Yes Clinical Impression/Diagnosis: Leg pain, left - Admission Yes - Follow up/Referral Referrals: Guillaume Hernandez MD [Primary Care Provider] - - Patient Discharge Instructions - Post Discharge Activity
[2019-09-22 08:38] LABS: BASO % 0.8 % (0-2.0); EOS % 1.5 % (0-4.5); HEMATOCRIT 40.1 % (32.4-45.2); HEMOGLOBIN 13.3 GM/dL (10.7-15.3); LYMPH % 31.2 % (8-40); MCH 31.4 pg (25.7-33.7); MCHC 33.1 g/dl (32.0-36.0); MEAN CELL VOLUME 94.7 fl (80-96); MEAN PLT VOLUME 6.7 fl (7.5-11.1); NEUT % 57.5 % (42.8-82.8); PLATELET COUNT 284 K/MM3 (134-434); RBC 4.23 M/mm3 (3.60-5.2); RDW 15.8 % (11.6-15.6); WHITE BLOOD COUNT 7.5 K/mm3 (4.0-10.0)
[2019-09-22 09:04] LABS: BLOOD UREA NITROGEN 17.5 mg/dL (7-18); CALCIUM 9.5 mg/dL (8.5-10.1); CREATININE 0.6 mg/dL (0.55-1.3); POTASSIUM 4.9 mmol/L (3.5-5.1)
[2019-09-22] MEDS ORDERED: SUCCINYLCHOLINE CHLORIDE 200 MG/10 ML SYRINGE ONE (09:36)
[2019-09-22] MEDS ORDERED: PROPOFOL 20 ML ONE ×2 (09:36)
[2019-09-22] MEDS ORDERED: MIDAZOLAM HCL 2 MG/2 ML SINGLE DOSE VIAL ONE (09:36)
[2019-09-22 10:03] LABS: INR 1.33 (0.83-1.09); PROTHROMBIN TIME (PATIENT) 15.7 SEC (9.7-13.0)
[2019-09-22 10:06] LABS: ACTIVATED PTT 30.1 SECONDS (25.2-36.5)
--- NOTE | 2019-09-22 10:45 | HP ---
Admitting History and Physical - Admission Chief Complaint: left third toe pain. 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 REcent angioplaty done. but artery now recoiled, will need stent placement Limitations to Obtaining History: No Limitations - Past Medical History Cardiovascular: Yes: HTN, Hyperlipdemia Gastrointestinal: Yes: GERD Heme/Onc: Yes: Other (DVT and has been on chronic anticoagulation) Rheumatology: Yes: Rheumatoid Arthritis - Past Surgical History Past Surgical History: Yes: Cataract Removal, Laminectomy - Smoking History Smoking history: Former smoker Have you smoked in the past 12 months: No Aproximately how many cigarettes per day: 0 If you are a former smoker, when did you quit?: 50 years ago - Alcohol/Substance Use Hx Alcohol Use: No History of Substance Use: reports: None - Social History ADL: Independent 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 History of Recent Travel: No Home Medications - Allergies Allergies/Adverse Reactions: Allergies Allergy/AdvReac Type Severity Reaction Status Date / Time No Known Allergies Allergy Verified 09/22/19 07:25 - Home Medications Home Medications: Ambulatory Orders Simvastatin [Zocor -] 20 mg PO HS 04/26/13 Pantoprazole Sodium [Protonix -] 40 mg PO DAILY 03/06/14 Warfarin Sodium [Coumadin] 5 mg PO Q2D 10/16/16 Warfarin Na [Coumadin -] 2.5 mg PO Q2D #0 tablet 10/20/16 Methotrexate [Mexate -] 2.5 mg PO Q7D 09/22/17 Gabapentin 300 mg PO BID 09/12/18 predniSONE [Deltasone -] 5 mg PO DAILY 09/12/18 Certolizumab Pegol [Cimzia] 800 mg IM Q30D 11/11/18 Diltiazem HCl [Cartia Xt] 120 mg PO DAILY 09/14/19 Metoprolol Tartrate 50 mg PO HS 09/14/19 Teriparatide [Forteo] 0.8 ml SQ DAILY 09/14/19 Valsartan 160 mg PO DAILY 09/14/19 Review of Systems - Review of Systems Constitutional: reports: No Symptoms Eyes: reports: No Symptoms HENT: reports: No Symptoms Neck: reports: No Symptoms Cardiovascular: reports: No Symptoms Respiratory: reports: No Symptoms Gastrointestinal: reports: No Symptoms Genitourinary: reports: No Symptoms Musculoskeletal: reports: No Symptoms Integumentary: reports: No Symptoms Neurological: reports: No Symptoms Endocrine: reports: No Symptoms Hematology/Lymphatic: reports: No Symptoms Psychiatric: reports: No Symptoms Physical Examination Vital Signs: Vital Signs Temperature 97.6 F 09/22/19 07:20 Pulse Rate 69 09/22/19 07:20 Respiratory Rate 17 09/22/19 07:20 Blood Pressure 128/72 09/22/19 07:20 O2 Sat by Pulse Oximetry (%) 98 09/22/19 08:08 Constitutional: Yes: Well Nourished, No Distress, Calm Eyes: Yes: WNL, Conjunctiva Clear, EOM Intact HENT: Yes: WNL, Atraumatic, Normocephalic Neck: Yes: WNL, Supple, Trachea Midline Cardiovascular: Yes: WNL, Regular Rate and Rhythm Respiratory: Yes: WNL, Regular, CTA Bilaterally Gastrointestinal: Yes: WNL, Normal Bowel Sounds Musculoskeletal: Yes: WNL Extremities: Yes: WNL Edema: No Peripheral Pulses WNL: No Integumentary: Yes: WNL Neurological: Yes: WNL, Alert, Oriented ...Motor Strength: WNL Psychiatric: Yes: WNL Labs: CBC, BMP 09/22/19 08:28 09/22/19 08:28 Problem List - Problems (1) Leg pain, left Assessment/Plan: for left lower extremity angiogram, angioplasty, stent placement today Code(s): M79.605 - PAIN IN LEFT LEG
[2019-09-22] MEDS ORDERED: ceFAZolin SODIUM 1 GM VIAL IVPB ONE (10:56)
[2019-09-22] MEDS ORDERED: LIDOCAINE HCL 1%, 10 MG/ML (20ML VIAL) NR ONE ×2 (10:57)
[2019-09-22] MEDS ORDERED: ceFAZolin SODIUM 1 GM VIAL ONE (11:05)
--- NOTE | 2019-09-22 12:14 | OP ---
Operative Note - Note: Operative Date: 09/22/19 Pre-Operative Diagnosis: left third toe ischemia Operation: Aortogram, LLE angiogram, Popliteal artery angioplasty with stent placement, anterior tibial artery angioplasty Findings: popliteal artery occlusion anterior tibial artery occlusion Post-Operative Diagnosis: Same as Pre-op Surgeon: Moose Goodwin Anesthesia: Fractional Estimated Blood Loss (mls): 50 Operative Report Dictated: Yes
--- NOTE | 2019-09-22 12:53 | OP ---
DATE OF OPERATION: 09/22/2019 PREOPERATIVE DIAGNOSIS: Left third toe ischemia. POSTOPERATIVE DIAGNOSIS: Left third toe ischemia. PROCEDURE: Aortogram, left lower extremity angiogram, popliteal artery angioplasty with stent placement, anterior tibial artery angioplasty. SURGEON: Moose Sales DO ANESTHESIA: Fractional. BLOOD LOSS: 50 mL. The patient is an 88-year-old female that recently had an angioplasty about 10-12 days ago for popliteal artery occlusion. We did arteriotomy and angioplasty, but the artery recoiled and closed on ultrasound preoperatively. It was decided that she would need to come in for an angioplasty and a stent placement. Patient was consented for the procedure, understanding all risks, benefits, and alternatives, then taken to the operating room. Once in the operating suite, laid on the operating table in supine manner, and the area of the right and left groins was prepped and draped in sterile surgical manner. We then injected 10 mL of lidocaine 1% over the right common femoral artery. We then went ahead and took our Micropuncture needle, punctured the right common femoral artery. Micropuncture wire was inserted. Micropuncture sheath was inserted, and traditional 5-Czech sheath was inserted. A 0.035 floppy guidewire was inserted into the aorta, followed by Omniflush catheter. We then shot an aortogram by hand injection, showing that the aorta and the iliac arteries were without any disease. We then used our 0.035 floppy guidewire and went up and over to the left common femoral artery, and our Omniflush catheter followed. We then shot an angiogram of the left lower extremity showing that the common femoral artery, the profunda, and the SFA were patent. The above-knee popliteal artery was occluded for about 6 cm. Below-knee popliteal artery was patent, and the TP trunk was patent; however, the anterior tibial artery was open for the first 10 cm and then was occluded, and then reconstituted going into the foot. The peroneal artery when down to the midcalf. At this point we placed a 0.035 stiff guidewire into the SFA. Omniflush catheter was then removed. A 6 x 45 crossover sheath was placed. Heparin 5000 units IV was administered to the patient. We then brought our 0.035 stiff guidewire down to the popliteal artery that was occluded, and using a Quick-Cross catheter, we were able to cross our lesion and placed the wire into the anterior tibial artery. We then went ahead and used a 5 x 6 Ultraverse balloon and performed angioplasty of the popliteal artery. We then went ahead and used a 6 x 6 LifeStent and placed a stent in the area and ballooned it in placed using a 5 x 6 balloon. Completion angiogram now showed that the artery was now patent. There was no recoil of the stent. We then went ahead and exchanged our wire for Economics Teacher wire, and we were able to cross our occlusion our occlusion in the anterior tibial artery. We then went ahead and used a 3 x 4, 0.014 Ultraverse balloon and performed angioplasty of the anterior tibial artery from the occluded area all the way up to its origin. Completion angiogram now showed good brisk flow through the stent and through the anterior tibial artery, giving good runoff into the foot. The anterior tibial artery is the main blood vessel going into the forefoot. At this point, no more intervention was needed. We brought the sheath up and over. StarClose device was successfully deployed in the right common femoral artery. Pressure was held over 5 minutes. After there was no more bleeding, area was dried and Dermabond was placed. Patient tolerated the procedure with no complications. Patient transferred to PACU in stable condition. MOOSE SALES DO [id number]
[2019-09-22 13:15] VITALS: BP 133/61; PULSE 54
[2019-09-22] MEDS ORDERED: ACETAMINOPHEN 325 MG TABLET (FP) PO PRN (13:41)
[2019-09-22] MEDS ORDERED: ONDANSETRON 4 MG/2 ML VIAL IVPUSH PRN (13:41)
[2019-09-22 13:42] VITALS: TEMP 98.3
--- NOTE | 2019-09-25 11:54 | EKG ---
Test Reason : Blood Pressure : / mmHG Vent. Rate : 065 BPM Atrial Rate : 065 BPM P-R Int : 168 ms QRS Dur : 114 ms QT Int : 404 ms P-R-T Axes : 057 -53 060 degrees QTc Int : 420 ms NORMAL SINUS RHYTHM NON-SPECIFIC INTRA-VENTRICULAR CONDUCTION DELAY LEFT ANTERIOR FASCICULAR BLOCK SEPTAL INFARCT (CITED ON OR BEFORE 11-AUG-2017) ABNORMAL ECG WHEN COMPARED WITH ECG OF 12-SEP-2018 13:38, LIKELY NO SIGNIFICANT CHANGES Confirmed by MERRILL ALEX MD ([id number]) on 09/25/2019 11:54:10 AM Referred By: Confirmed By:MERRILL ALEX MD
== END 2019-09-22 13:55 | disposition home or self-care (01) ==
LOC: JER 07:13 → JASUSAT 08:28 → J5S 13:35 → JASUSAT 13:55
PROVIDERS: ATTEND Surgery Vascular Surgery
PROC: 047Q3ZZ Dilation of Left Anterior Tibial Artery, Percutaneous Approach (ICD-10-PCS; 2019-09-22)
PROC: X27 New Technology, Cardiovascular System, Dilation (ICD-10-PCS; principal; 2019-09-22 10:00)
DX: I70.292 Other atherosclerosis of native arteries of extremities, left leg (principal); I77.89 Other specified disorders of arteries and arterioles; I99.8 Other disorder of circulatory system; I77.1 Stricture of artery; I10 Essential (primary) hypertension; E78.5 Hyperlipidemia, unspecified; I82.509 Chronic embolism and thrombosis of unspecified deep veins of unspecified lower extremity; Z79.01 Long term (current) use of anticoagulants
CPT/HCPCS: 37226; 37228; C1725; C1877; 36415; 76000-TC-FY; 80048; 85025; 85610; 85730; 93005; 93010; 94760; 99283-25

== ENCOUNTER 2019-09-25 12:11 | Day surgery (SDC) | payer BC ==
[2019-09-25 12:30] LABS: BASO % 0.4 % (0-2.0); EOS % 0.3 % (0-4.5); HEMATOCRIT 35.8 % (32.4-45.2); HEMOGLOBIN 11.9 GM/dL (10.7-15.3); LYMPH % 15.9 % (8-40); MCH 31.6 pg (25.7-33.7); MCHC 33.3 g/dl (32.0-36.0); MEAN CELL VOLUME 94.9 fl (80-96); MEAN PLT VOLUME 6.3 fl (7.5-11.1); MONO % 11.3 % (3.8-10.2); NEUT % 72.1 % (42.8-82.8); PLATELET COUNT 260 K/MM3 (134-434); RBC 3.77 M/mm3 (3.60-5.2); WHITE BLOOD COUNT 10.1 K/mm3 (4.0-10.0)
[2019-09-25 13:13] LABS: ALBUMIN 3.2 g/dl (3.4-5.0); BILIRUBIN,TOTAL 0.5 mg/dL (0.2-1); BLOOD UREA NITROGEN 14.2 mg/dL (7-18); CALCIUM 9.3 mg/dL (8.5-10.1); CREATININE 0.6 mg/dL (0.55-1.3); INR 1.55 (0.83-1.09); POTASSIUM 4.2 mmol/L (3.5-5.1); PROTHROMBIN TIME (PATIENT) 18.4 SEC (9.7-13.0); TOT PROT 5.8 g/dl (6.4-8.2)
[2019-09-25] MEDS ORDERED: EPHEDRINE SULFATE/0.9% NACL/PF 50 MG/10 ML SYRINGE NR ONE (15:02)
[2019-09-25] MEDS ORDERED: PROPOFOL 20 ML ONE ×3 (15:02→16:42)
[2019-09-25] MEDS ORDERED: HEPARIN NA (PORCINE) 5,000 UNITS/ML 1ML VIAL ONE (15:11)
[2019-09-25] MEDS ORDERED: LIDOCAINE HCL 1%, 10 MG/ML (20ML VIAL) ONE (15:13)
[2019-09-25] MEDS ORDERED: MIDAZOLAM HCL 2 MG/2 ML SINGLE DOSE VIAL ONE (15:39)
[2019-09-25] MEDS ORDERED: ceFAZolin SODIUM 1 GM VIAL IVPB ONE (15:45)
[2019-09-25] MEDS ORDERED: LIDOCAINE HCL 1%, 10 MG/ML (20ML VIAL) PNB ONE (15:52)
[2019-09-25] MEDS ORDERED: PROMETHAZINE HCL 25 MG/1 ML VIAL IVPUSH PRN (16:04)
[2019-09-25] MEDS ORDERED: ONDANSETRON 4 MG/2 ML VIAL IVPUSH PRN (16:04)
[2019-09-25] MEDS ORDERED: LACTATED RINGERS SOLUTION 1,000 ML IV SCH (16:15)
[2019-09-25] MEDS ORDERED: HEPARIN NA (PORCINE) 5,000 UNITS/ML 1ML VIAL IP ONE (16:38)
--- NOTE | 2019-09-25 17:20 | HP ---
Admitting History and Physical - Admission Chief Complaint: left foot ischemia Limitations to Obtaining History: No Limitations - Past Medical History Cardiovascular: Yes: HTN, Hyperlipdemia Gastrointestinal: Yes: GERD Heme/Onc: Yes: Other (DVT and has been on chronic anticoagulation) Rheumatology: Yes: Rheumatoid Arthritis - Past Surgical History Past Surgical History: Yes: Cataract Removal, Laminectomy - Smoking History Smoking history: Former smoker Have you smoked in the past 12 months: No Aproximately how many cigarettes per day: 0 If you are a former smoker, when did you quit?: 50 years ago - Alcohol/Substance Use Hx Alcohol Use: No History of Substance Use: reports: None - Social History ADL: Independent 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 History of Recent Travel: No Home Medications - Allergies Allergies/Adverse Reactions: Allergies Allergy/AdvReac Type Severity Reaction Status Date / Time No Known Allergies Allergy Verified 09/22/19 07:25 - Home Medications Home Medications: Ambulatory Orders Simvastatin [Zocor -] 20 mg PO HS 04/26/13 Pantoprazole Sodium [Protonix -] 40 mg PO DAILY 03/06/14 Warfarin Sodium [Coumadin] 5 mg PO Q2D 10/16/16 Warfarin Na [Coumadin -] 2.5 mg PO Q2D #0 tablet 10/20/16 Methotrexate [Mexate -] 2.5 mg PO Q7D 09/22/17 Gabapentin 300 mg PO BID 09/12/18 predniSONE [Deltasone -] 5 mg PO DAILY 09/12/18 Certolizumab Pegol [Cimzia] 800 mg IM Q30D 11/11/18 Diltiazem HCl [Cartia Xt] 120 mg PO DAILY 09/14/19 Metoprolol Tartrate 50 mg PO HS 09/14/19 Teriparatide [Forteo] 0.8 ml SQ DAILY 09/14/19 Valsartan 160 mg PO DAILY 09/14/19 Review of Systems - Review of Systems Constitutional: reports: No Symptoms Eyes: reports: No Symptoms HENT: reports: No Symptoms Neck: reports: No Symptoms Cardiovascular: reports: No Symptoms Respiratory: reports: No Symptoms Gastrointestinal: reports: No Symptoms Genitourinary: reports: No Symptoms Musculoskeletal: reports: No Symptoms Integumentary: reports: No Symptoms Neurological: reports: No Symptoms Endocrine: reports: No Symptoms Hematology/Lymphatic: reports: No Symptoms Psychiatric: reports: No Symptoms Physical Examination Vital Signs: Vital Signs Temperature 98.0 F 09/25/19 13:43 Pulse Rate 68 09/25/19 13:43 Respiratory Rate 20 09/25/19 13:43 Blood Pressure 148/70 09/25/19 13:43 O2 Sat by Pulse Oximetry (%) 98 09/25/19 13:42 Constitutional: Yes: Well Nourished, No Distress, Calm Eyes: Yes: WNL, Conjunctiva Clear, EOM Intact HENT: Yes: WNL, Atraumatic, Normocephalic Neck: Yes: WNL, Supple, Trachea Midline Cardiovascular: Yes: WNL, Regular Rate and Rhythm Respiratory: Yes: WNL, Regular, CTA Bilaterally Gastrointestinal: Yes: WNL, Normal Bowel Sounds Musculoskeletal: Yes: WNL Extremities: Yes: WNL Edema: No Peripheral Pulses WNL: No Integumentary: Yes: WNL Neurological: Yes: WNL, Alert, Oriented ...Motor Strength: WNL Psychiatric: Yes: WNL Labs: CBC, BMP 09/25/19 12:22 09/25/19 12:22 Problem List - Problems (1) Ischemic pain of left foot Assessment/Plan: for angiogram today Code(s): M79.672 - PAIN IN LEFT FOOT; I99.9 - UNSPECIFIED DISORDER OF CIRCULATORY SYSTEM
--- NOTE | 2019-09-25 17:21 | OP ---
Operative Note - Note: Operative Date: 09/25/19 Pre-Operative Diagnosis: left foot ischemia Operation: Aortogram, Left lower extremity angiogram, SFA angioplasty with stent placement, popliteal artery angioplasty with stent placement, tibial artery angioplasty Findings: pop stent occlusion Post-Operative Diagnosis: Same as Pre-op Surgeon: Moose Goodwin Anesthesia: Fractional Estimated Blood Loss (mls): 50 Operative Report Dictated: Yes
[2019-09-25] MEDS ORDERED: APIXABAN 2.5 MG TABLET PO SCH (17:33)
[2019-09-25] MEDS ORDERED: APIXABAN 2.5 MG TABLET PO STA (17:56)
[2019-09-25] MEDS: GABAPENTIN 300 MG CAPSULE (FP) PO SCH (21:43)
[2019-09-25] MEDS: ACETAMINOPHEN WITH CODEINE 300MG/30MG TABLET PO PRN (23:34)
[2019-09-26 03:00] VITALS: TEMP 99.9
[2019-09-26] MEDS: ACETAMINOPHEN WITH CODEINE 300MG/30MG TABLET PO PRN ×2 (03:24→08:11)
--- NOTE | 2019-09-26 08:49 | DS ---
Physical Exam: SUBJECTIVE: Patient seen and examined. reports she is feeling slightly better, pain is controlled. Has not been oob. Tolerating PO. Voiding without issue. Denies cp/sob, n/v/d. OBJECTIVE: Vital Signs Period Temp Pulse Resp BP Sys/Ying Pulse Ox Last 24 Hr 97.4 F-99.9 F 68-106 14-20 134-168/63-90 95-100 PHYSICAL EXAM GENERAL: The patient is awake, alert, and fully oriented, in no acute distress. HEAD: Normal with no signs of trauma. Groin: R groin with puncture site c/d/i, + ecchymosis, small hematoma. 2+ fem EXTREMITIES: B/L feet with slight discoloration of distal tips of toes. Ulcer at tip of 3rd toe, no erythema no drainage. + ttp. Feet warm b/l. Vasc: biphasic dp on L, unable to appreciate any pt on L, no dp/pt with doppler on right. LABS Laboratory Results - last 24 hr 09/25/19 09/25/19 09/25/19 12:22 12:22 12:22 WBC 10.1 H RBC 3.77 Hgb 11.9 Hct 35.8 MCV 94.9 MCH 31.6 MCHC 33.3 RDW 16.0 H Plt Count 260 MPV 6.3 L Absolute Neuts (auto) 7.3 Neutrophils % 72.1 D Lymphocytes % 15.9 D Monocytes % 11.3 H Eosinophils % 0.3 Basophils % 0.4 Nucleated RBC % 0 PT with INR 18.40 H INR 1.55 H Sodium 133 L Potassium 4.2 Chloride 96 L Carbon Dioxide 29 Anion Gap 7 L BUN 14.2 Creatinine 0.6 Est GFR (CKD-EPI)AfAm 94.32 Est GFR (CKD-EPI)NonAf 81.38 Random Glucose 109 H Calcium 9.3 Total Bilirubin 0.5 AST 106 H ALT 40 Alkaline Phosphatase 100 Total Protein 5.8 L Albumin 3.2 L HOSPITAL COURSE: The patient was admitted to the Med-Surg Unit after an elective repair of her PAD. Now, s/p Aortogram, Left lower extremity angiogram, SFA angioplasty with stent placement, popliteal artery angioplasty with stent placement, tibial artery angioplasty. The patient was kept flat after surgery, groin checks were performed and remained stable. Patients home anticoagulation was changed to Eliquis which was verified with pharmacy. A prescription was sent to [facility]. All discharge instructions were reviewed with patient and son who verbalized understanding. Date of Admission:09/25/19 Date of Discharge: 09/26/19 Minutes to complete discharge: 20 Discharge Summary Problems reviewed: Yes Reason For Visit: LLE ISCHEMIA Current Active Problems Ischemic pain of left foot (Acute) Condition: Good - Instructions Diet, Activity, Other Instructions: S/P angioplasty with stent placement. Please take eliquis 2.5mg by mouth twice a day. Script sent to [facility] pharmacy downstairs. Return to clinic in one week. call for appt -- [phone] Disposition: HOME - Home Medications Comprehensive Discharge Medication List: Ambulatory Orders Simvastatin [Zocor -] 20 mg PO HS 04/26/13 Pantoprazole Sodium [Protonix -] 40 mg PO DAILY 03/06/14 Warfarin Sodium [Coumadin] 5 mg PO Q2D 10/16/16 Warfarin Na [Coumadin -] 2.5 mg PO Q2D #0 tablet 10/20/16 Methotrexate [Mexate -] 2.5 mg PO Q7D 09/22/17 Gabapentin 300 mg PO BID 09/12/18 predniSONE [Deltasone -] 5 mg PO DAILY 09/12/18 Certolizumab Pegol [Cimzia] 800 mg IM Q30D 11/11/18 Diltiazem HCl [Cartia Xt] 120 mg PO DAILY 09/14/19 Metoprolol Tartrate 50 mg PO HS 09/14/19 Teriparatide [Forteo] 0.8 ml SQ DAILY 09/14/19 Valsartan 160 mg PO DAILY 09/14/19 Apixaban [Eliquis] 5 mg PO BID #60 tablet 09/25/19 Problem List - Problems (1) Ischemic pain of left foot Problems reviewed: Yes Code(s): M79.672 - PAIN IN LEFT FOOT; I99.9 - UNSPECIFIED DISORDER OF CIRCULATORY SYSTEM This patient is new to me today: Yes Date on this admission: 09/26/19 Emergency Visit: No Critical Care patient: No - Discharge Referral Referred to [facility] No
[2019-09-26] MEDS: GABAPENTIN 300 MG CAPSULE (FP) PO SCH (09:50)
[2019-09-26] MEDS ORDERED: VALSARTAN 160 MG TABLET (UD) PO SCH (10:00)
[2019-09-26] MEDS ORDERED: METOPROLOL TARTRATE 50 MG TABLET (FP) PO SCH ×2 (10:00→10:38)
[2019-09-26] MEDS ORDERED: APIXABAN 5 MG TABLET PO SCH (10:00)
[2019-09-26 11:09] VITALS: BP 136/70; PULSE 104
--- NOTE | 2019-10-05 13:13 | OP ---
DATE OF OPERATION: 09/25/2019 PREOPERATIVE DIAGNOSIS: Left foot ischemia. POSTOPERATIVE DIAGNOSIS: Left foot ischemia. PROCEDURE: Aortogram, left lower extremity angiogram, superficial femoral artery angioplasty with stent placement, popliteal artery angioplasty with stent placement, tibial artery angioplasty. FINDINGS: Popliteal stent occlusion. SURGEON: Moose Sales DO ANESTHESIA: Fractional. BLOOD LOSS: 50 mL. INDICATIONS: Patient is an 88-year-old female that has had 2 angioplasties in the past, 1 with athrectomy and 1 with stent placement now comes in with left foot ischemia. Preoperative ultrasound done showed that the SFA popliteal artery stent was occluded, and below-knee popliteal and tibial artery tibial peroneal trunk was occluded. At this point, patient was sent to the ER and was patient was then brought to the operating room. Patient was consented for the procedure understanding all risks, benefits, alternatives. Was then taken to the operating room. DESCRIPTION OF PROCEDURE: Once in the operating room, was laid on the operating table in supine manner, and the area of the right and left groin were prepped and draped in a sterile surgical manner. We then injected 10 mL of lidocaine 1% over the right common femoral artery. Using ultrasound guidance, we were able to puncture the right common femoral artery using a micropuncture needle. Micropuncture wire was inserted. Micropuncture sheath was inserted. A traditional 5-Malawian sheath was inserted. We then placed a 0.035 floppy guidewire up into the aorta followed by an Omni Flush catheter. We then shot an aortogram showing that the aorta and the iliac arteries were without any disease. We then used our 0.035 floppy guidewire and went up and over to the left common femoral artery, and our Omni Flush catheter followed. We then shot an angiogram of the left lower extremity showing that there was disease above the stent in the SFA with severe stenosis. The SFA popliteal artery stent was occluded, and the below-knee popliteal was occluded. Patient had runoff in the form of AT as the main runoff into the foot. At this point, we placed a 0.035 stiff guidewire into the SFA. Removed our Omni Flush catheter. We placed a 6 x 45 crossover sheath up and over, 5000 units of IV used a 6 x 4 Ultraverse balloon and ballooned a stent open and ballooned the proximal SFA above it. At this point, completion angiogram now showed that the stent was patent, but the SFA was dissected, and we extended it. We placed another 6 x 4 Lifestent and ballooned it in place using a 5 x 4 balloon. The SFA was now patent. We then went ahead and used a 4 x 8 balloon. The SFA was now patent. We then went ahead and used a 4 x 8 balloon and performed angioplasty of the below-knee popliteal artery and TP trunk. At this point, for the occlusion at this point, the completion angiogram showed that there was a dissection there. We went ahead and used a 5 x 4 Lifestent and placed a below-knee popliteal artery and ballooned it in place using a 5 x 4 balloon. Completion angiogram now showed that the SFA popliteal artery and below-knee popliteal artery were patent. There was disease at the takeoff of the anterior tibial artery. We went ahead and placed a 3 x 8 balloon and performed angioplasty of the proximal anterior tibial artery. There was now good inline flow going all the way into the foot in the form of the anterior tibial artery on completion angiogram. We decided that no more intervention was needed. We brought our sheath up and over. StarClose device was successfully deployed in the right common femoral artery. Pressure was held for 5 minutes. After there was no more bleeding, the area was wet and dried, and Dermabond was placed. Patient tolerated the procedure with no complications. Patient transferred to the PACU in stable condition. Patient has a palpable DP pulse. MOOSE SALES DO [id number]
== END 2019-09-26 11:14 | disposition home or self-care (01) ==
LOC: JASUSAT 12:11 → J6S 20:49 → JASUSAT 09-26 11:14
PROVIDERS: ATTEND Surgery Vascular Surgery
PROC: 047N3DZ Dilation of Left Popliteal Artery with Intraluminal Device, Percutaneous Approach (ICD-10-PCS; 2019-09-25)
PROC: 047Q3ZZ Dilation of Left Anterior Tibial Artery, Percutaneous Approach (ICD-10-PCS; 2019-09-25)
PROC: 047L34Z Dilation of Left Femoral Artery with Drug-eluting Intraluminal Device, Percutaneous Approach (ICD-10-PCS; principal; 2019-09-25 15:30)
DX: T82.856A Stenosis of peripheral vascular stent, initial encounter (principal); I70.202 Unspecified atherosclerosis of native arteries of extremities, left leg; I10 Essential (primary) hypertension; D50.9 Iron deficiency anemia, unspecified
CPT/HCPCS: 37226; 37228; 37232; C1725; C1877; 36415; 80053; 85025; 85610; 94760; J1644

== ENCOUNTER 2019-10-31 14:49 | Inpatient (IN) | payer BC ==
--- NOTE | 2019-10-31 16:11 | PDOC ---
History of Present Illness - General Chief Complaint: Pain Stated Complaint: EVALUATION Time Seen by Provider: 10/31/19 15:14 History Source: Patient - History of Present Illness Occurred: reports: other Lower Extremity Pain Location: left: foot Past History - Past Medical History Allergies/Adverse Reactions: Allergies Allergy/AdvReac Type Severity Reaction Status Date / Time No Known Allergies Allergy Verified 09/22/19 07:25 Home Medications: Ambulatory Orders Simvastatin [Zocor -] 20 mg PO HS 04/26/13 Pantoprazole Sodium [Protonix -] 40 mg PO DAILY 03/06/14 Methotrexate [Mexate -] 7 tab PO Q7D 09/22/17 predniSONE [Deltasone -] 2.5 mg PO DAILY 09/12/18 Diltiazem HCl [Cartia Xt] 120 mg PO DAILY 09/14/19 Metoprolol Tartrate 50 mg PO HS 09/14/19 Teriparatide [Forteo] 0.8 ml SQ DAILY 09/14/19 Apixaban [Eliquis] 5 mg PO BID #60 tablet 09/25/19 Valsartan [Diovan] 160 mg PO DAILY tablet 09/26/19 Silver Sulfadiazine [Silvadene] 85 gm TP DAILY #1 cream..g. 10/16/19 Diltiazem HCl [Cartia Xt] 180 mg PO DAILY 10/31/19 Gabapentin [Neurontin -] 300 mg PO TID 10/31/19 Oxycodone HCl 1 tab PO Q4H PRN 10/31/19 Anemia: Yes (iron def with IV iron supplements) Asthma: No Cancer: No Cardiac Disorders: Yes CVA: No COPD: Yes (as per son) CHF: No DVT: No Dementia: No Diabetes: No Dialysis: No GI Disorders: Yes (ULCERATED ESOPHAGUS; IRRITABLE BOWEL SYNDR., Hiatal hernia) Disorders: No HTN: Yes Hypercholesterolemia: Yes Kidney Stones: No Liver Disease: No Psychiatric Problems: No Seizures: No Thyroid Disease: No Lung CA: No Other medical history: Parkinsons DX - Surgical History Abdominal Surgery: No Appendectomy: No Cardiac Surgery: No Cholecystectomy: No Gastric Stapling: No GI Surgery: No Lung Surgery: No Neurologic Surgery: Yes (SPINAL FUSION; LAMINECTOMY, Kyphoplasty) Orthopedic Surgery: Yes (LT CARPAL TUNNEL) - Immunization History Immunization Up to Date: Yes - Psycho Social/Smoking Cessation Hx Smoking Status: Yes Smoking History: Never smoked Have you smoked in the past 12 months: No Number of Cigarettes Smoked Daily: 0 If you are a former smoker, when did you quit?: 50 years ago Hx Alcohol Use: No Drug/Substance Use Hx: No Substance Use Type: None Hx Substance Use Treatment: No Review of Systems - Review of Systems Constitutional: No: Chills, Fever *Physical Exam - Vital Signs Last Vital Signs Temp Pulse Resp BP Pulse Ox 97.2 F L 95 H 20 114/50 L 93 L 10/31/19 14:53 10/31/19 14:53 10/31/19 14:53 10/31/19 14:53 10/31/19 14:53 - Physical Exam General Appearance: Yes: Appropriately Dressed. No: Apparent Distress HEENT: positive: Normal Voice Neck: positive: Supple Respiratory/Chest: negative: Respiratory Distress Extremity: positive: Other (dressing in place to LLE) Integumentary: positive: Dry, Warm Neurologic: positive: Fully Oriented, Alert, Normal Mood/Affect ED Treatment Course - RADIOLOGY Radiology Studies Ordered: Category Date Time Status CHEST X-RAY PORTABLE* [RAD] Stat Radiology 10/31/19 15:20 Ordered Medical Decision Making - Medical Decision Making 10/31/19 15:56 89 yo F, h/o GERD, HLD, HTN, DVT on chronic AC (eliquis), severe PVD s/p LLE angioplasty, sent in for TMA in the am w/ Dr Smith. Pt c/o worsening L foot pain LLE pain. No f/c per son. 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
--- NOTE | 2019-10-31 17:47 | HP ---
CHIEF COMPLAINT: left lower extremity pain PCP: HISTORY OF PRESENT ILLNESS: Patient is an 89 year old female with history of hypertension, hyperlipidemia, DVT (onEliquis), peripheral venous disease (s/p three angioplasty), anemia presents with complaint of left foot pain. Patient endorses symptoms began in August of 2018. Patient has been followed by Dr. Goodwin for wound care. Patient was seen earlier in 5th floor wound care center where necrosis of the left foot third toe was noted and she was advised to proceed to Emergency Department. Patient agreed to trans-metatarsal amputation of left lower extremity tentatively scheduled tomorrow evening. ER course was notable for: (1) Necrosis left foot third toe (2) Pending labs. (3) Recent Travel: denies PAST MEDICAL HISTORY: as per HPI PAST SURGICAL HISTORY: laminctomy, spinal fusion, kyphoplasty, benign salivary gland tumor resection, carpal tunnel surgery Social History: Lives with son, and home health aide 24 hours/ 7 day per week. Currently non-ambulatory, and wheelchair dependent. Smoking: Former smoker, quit 50 years ago. Alcohol: Denies Drugs: Denies Allergies No Known Allergies Allergy (Verified 09/22/19 07:25) HOME MEDICATIONS: Home Medications Medication Instructions Recorded Simvastatin [Zocor -] 20 mg PO HS 04/26/13 Pantoprazole Sodium [Protonix -] 40 mg PO DAILY 03/06/14 Methotrexate [Mexate -] 7 tab PO Q7D 09/22/17 predniSONE [Deltasone -] 2.5 mg PO DAILY 09/12/18 Diltiazem HCl [Cartia Xt] 120 mg PO DAILY 09/14/19 Metoprolol Tartrate 50 mg PO HS 09/14/19 Teriparatide [Forteo] 0.8 ml SQ DAILY 09/14/19 Apixaban [Eliquis] 5 mg PO BID #60 tablet 09/25/19 Valsartan [Diovan] 160 mg PO DAILY tablet 09/26/19 Silver Sulfadiazine [Silvadene] 85 gm TP DAILY #1 cream..g. 10/16/19 Diltiazem HCl [Cartia Xt] 180 mg PO DAILY 10/31/19 Gabapentin [Neurontin -] 300 mg PO TID 10/31/19 Oxycodone HCl 1 tab PO Q4H PRN 10/31/19 REVIEW OF SYSTEMS CONSTITUTIONAL: Absent: fever, chills, diaphoresis, generalized weakness, malaise, loss of appetite, weight change HEENT: Absent: rhinorrhea, nasal congestion, throat pain, throat swelling, difficulty swallowing, mouth swelling, ear pain, eye pain, visual changes CARDIOVASCULAR: Absent: chest pain, syncope, palpitations, irregular heart rate, lightheadedness , peripheral edema RESPIRATORY: Absent: cough, shortness of breath, dyspnea with exertion, orthopnea, wheezing, stridor, hemoptysis GASTROINTESTINAL: Absent: abdominal pain, abdominal distension, nausea, vomiting, diarrhea, constipation, melena, hematochezia GENITOURINARY: Absent: dysuria, frequency, urgency, hesitancy, hematuria, flank pain, genital pain MUSCULOSKELETAL: Admits: bilateral foot pain. Absent: back pain, neck pain SKIN: Absent: rash, itching, pallor HEMATOLOGIC/IMMUNOLOGIC: Absent: easy bleeding, easy bruising, lymphadenopathy, frequent infections ENDOCRINE: Absent: unexplained weight gain, unexplained weight loss, heat intolerance, cold intolerance NEUROLOGIC: Absent: headache, focal weakness or paresthesias, dizziness, unsteady gait, seizure, mental status changes, bladder or bowel incontinence PSYCHIATRIC: Absent: anxiety, depression, suicidal or homicidal ideation, hallucinations. PHYSICAL EXAMINATION Vital Signs - 24 hr 10/31/19 14:53 Temperature 97.2 F L Pulse Rate 95 H Respiratory 20 Rate Blood Pressure 114/50 L O2 Sat by Pulse 93 L Oximetry (%) GENERAL: Awake, alert, and fully oriented, in no acute distress. HEAD: Normal with no signs of trauma. EYES: Pupils equal, round and reactive to light, extraocular movements intact, sclera anicteric, conjunctiva clear. EARS, NOSE, THROAT: Oropharynx clear without exudates. Moist mucous membranes. NECK: Normal range of motion, supple without lymphadenopathy. LUNGS: Breath sounds equal, clear to auscultation bilaterally. No wheezes, and no crackles. No accessory muscle use. HEART: Regular rate and rhythm, normal S1 and S2 with holosystolic murmur auscultated. ABDOMEN: Soft, nontender, not distended, normoactive bowel sounds, no guarding, no rebound tenderness. No hepatomegaly or splenomegaly. EXTREMITIES: 1+ dorsalis pedis pulse left foot. Right foot dorsalis pedis pulse not palpable. Left foot gangrenous third toe. Bilateral first and second toes erythematous. NEUROLOGICAL: Cranial nerves II-XII intact. Normal speech. PSYCHIATRIC: Cooperative. Appropriate mood and affect. ASSESSMENT/PLAN: Patient is an 89 year old female with history of hypertension, hyperlipidemia, DVT (on Eliquis), peripheral venous disease (s/p three angiplasty), anemia presents with complaint of left foot pain. Admitted for gangrenous left third toe. Left third toe gangrene -Patient is scheduled for transmetatarsal amputation 09/01/2020 -NPO after midnight. IV normal saline at 83mL/ hour -PT/ INR, PTT, type and cross ordered -Pain control Ofirmev 1000mg IV Q6 hours. Tramadol 25mg PO Q8 hours PRN for breakthrough pain -Vancomycin, Zosyn broad coverage perioperatively -Podiatry consult (Dr. Loya) -Vascular surgery consult (Dr. Goodwin) -Cardiology consult (Dr. Dominique Wilson) for cardiac clearance. -Follow CT left lower extremity History of DVT -Patient last took Eliquis this morning. Will hold in anticipation of surgical procedure. -Holding chemical anticoagulaiton, pending vascular surgery recommendations -Reinstate anticoagulation once clinically appropriate Hypertension -Metoprolol, Valsartan, Cardiazem GERD -Protonix 40mg IV daily FEN -IV normal saline at 83mL/ hour -Follow BMP, -NPO after midnight Prophylaxis -Patient normally takes Eliquis- currently held in anticipation of surgical procedure. Disposition -Admit to medical/ surgical floor. Visit type - Emergency Visit Emergency Visit: Yes ED Registration Date: 10/31/19 Care time: The patient presented to the Emergency Department on the above date and was hospitalized for further evaluation of their emergent condition. - New Patient This patient is new to me today: Yes Date on this admission: 10/31/19 - Critical Care Critical Care patient: No ATTENDING PHYSICIAN STATEMENT I saw and evaluated the patient. I reviewed the resident's note and discussed the case with the resident. I agree with the resident's findings and plan as documented. SUBJECTIVE: OBJECTIVE: ASSESSMENT AND PLAN:
[2019-10-31] MEDS ORDERED: ACETAMINOPHEN INJECTION 100 ML IVPB ONE (18:03)
[2019-10-31] MEDS: ACETAMINOPHEN 1000 MG/100 ML VIAL (NON FORMULARY) IVPB SCH (18:23)
[2019-10-31 19:13] LABS: BASO % 0.6 % (0-2.0); EOS % 0.1 % (0-4.5); HEMATOCRIT 37.2 % (32.4-45.2); LYMPH % 13.5 % (8-40); MCH 30.4 pg (25.7-33.7); MCHC 32.2 g/dl (32.0-36.0); MEAN CELL VOLUME 94.4 fl (80-96); MEAN PLT VOLUME 7.5 fl (7.5-11.1); MONO % 9.1 % (3.8-10.2); NEUT % 76.7 % (42.8-82.8); PLATELET COUNT 372 K/MM3 (134-434); RBC 3.94 M/mm3 (3.60-5.2); RDW 16.2 % (11.6-15.6); WHITE BLOOD COUNT 14.3 K/mm3 (4.0-10.0)
[2019-10-31 19:42] LABS: ALBUMIN 3.4 g/dl (3.4-5.0); ALK PHOS 116 U/L (45-117); ANION GAP 7 MMOL/L (8-16); BILIRUBIN,TOTAL 0.5 mg/dL (0.2-1); BLOOD UREA NITROGEN 14.6 mg/dL (7-18); CALCIUM 9.2 mg/dL (8.5-10.1); CHLORIDE 91 mmol/L (98-107); CO2 31 mmol/L (21-32); CREATININE 0.6 mg/dL (0.55-1.3); GLUCOSE,RANDOM 98 mg/dL (74-106); POTASSIUM 4.5 mmol/L (3.5-5.1); SGOT/AST 27 U/L (15-37); SGPT/ALT 26 U/L (13-61); SODIUM 128 mmol/L (136-145); TOT PROT 6.5 g/dl (6.4-8.2)
[2019-10-31 19:50] LABS: INR 1.34 (0.83-1.09); PROTHROMBIN TIME (PATIENT) 15.8 SEC (9.7-13.0)
[2019-10-31] MEDS ORDERED: traMADol HCL 50 MG TABLET ONE (20:33)
[2019-10-31] MEDS: traMADol HCL 50 MG TABLET PO PRN (20:45)
[2019-10-31] MEDS ORDERED: PIPERACILLIN/TAZOB 3.375 GM 3.375 GM/50 ML BAG IVPB ONE (21:30)
--- NOTE | 2019-10-31 21:33 | PN ---
Teaching Attending Note Name of Resident: Ac Mohan ATTENDING PHYSICIAN STATEMENT I saw and evaluated the patient. I reviewed the resident's note and discussed the case with the resident. I agree with the resident's findings and plan as documented. 89 F h/o hypertension, hyperlipidemia, DVT (on Eliquis), peripheral venous disease (s/p three angioplasty), chronic anemia presents with complaint of left foot pain. Patient endorses symptoms began in August of 2018. Patient has been followed by Dr. Goodwin for wound care. Patient was seen earlier in 5th floor wound care center where necrosis of the left foot third toe was noted and she was advised to proceed to Emergency Department. Patient agreed to trans- metatarsal amputation of left lower extremity tentatively scheduled tomorrow evening. PE VSS GA old elderly female, frail appearing, sitting up in bed, AAox3, son at bedside HEENT NC/AT, EOMI, no JVD, dry MM Chest good air entry b/l, L sided crackles CVS S1, S2+, loud harsh MAEVE+ Abd Soft, NT, ND Ext no LE edema, no calf tenderness, both feet wrapped in dressing/jeana bandages Vital Signs - 24 hr 10/31/19 10/31/19 10/31/19 14:53 17:04 20:30 Temperature 97.2 F L 98.5 F 98.2 F Pulse Rate 95 H Pulse Rate [ 82 79 Left] Respiratory 20 18 18 Rate Blood Pressure 114/50 L Blood Pressure 119/60 117/61 [Arm] O2 Sat by Pulse 93 L 99 97 Oximetry (%) Laboratory Results - last 24 hr 10/31/19 10/31/19 10/31/19 18:00 18:00 18:00 WBC 14.3 H RBC 3.94 Hgb 12.0 Hct 37.2 MCV 94.4 MCH 30.4 MCHC 32.2 RDW 16.2 H Plt Count 372 D MPV 7.5 D Absolute Neuts (auto) 11.0 H Neutrophils % 76.7 Lymphocytes % 13.5 Monocytes % 9.1 Eosinophils % 0.1 Basophils % 0.6 Nucleated RBC % 0 PT with INR 15.80 H INR 1.34 H Sodium 128 L Potassium 4.5 Chloride 91 L Carbon Dioxide 31 Anion Gap 7 L BUN 14.6 Creatinine 0.6 Est GFR (CKD-EPI)AfAm 93.66 Est GFR (CKD-EPI)NonAf 80.81 Random Glucose 98 Calcium 9.2 Total Bilirubin 0.5 AST 27 ALT 26 Alkaline Phosphatase 116 Creatine Kinase 82 Troponin I < 0.02 Total Protein 6.5 Albumin 3.4 Blood Type Antibody Screen 10/31/19 18:00 WBC RBC Hgb Hct MCV MCH MCHC RDW Plt Count MPV Absolute Neuts (auto) Neutrophils % Lymphocytes % Monocytes % Eosinophils % Basophils % Nucleated RBC % PT with INR INR Sodium Potassium Chloride Carbon Dioxide Anion Gap BUN Creatinine Est GFR (CKD-EPI)AfAm Est GFR (CKD-EPI)NonAf Random Glucose Calcium Total Bilirubin AST ALT Alkaline Phosphatase Creatine Kinase Troponin I Total Protein Albumin Blood Type A POSITIVE Antibody Screen Negative Current Medications Generic Name Dose Route Start Last Admin Trade Name Freq PRN Reason Stop Dose Admin Acetaminophen 1,000 mg 10/31/19 18:00 10/31/19 18:23 Ofirmev Injection - IVPB 1,000 mg Q6H COLBY Administration Diltiazem HCl 180 mg 11/01/19 10:00 Cardizem Cd - PO DAILY COLBY Gabapentin 300 mg 10/31/19 22:00 Neurontin - PO TID COLBY Sodium Chloride 1,000 mls @ 83 mls/hr 10/31/19 23:00 Normal Saline - IV ASDIR COLBY Piperacillin Sod/Tazobactam 50 mls @ 100 mls/hr 11/01/19 18:00 Sod 3.375 gm/ Dextrose IVPB Q8H-IV COLBY Protocol Piperacillin Sod/Tazobactam 50 mls @ 100 mls/hr 10/31/19 19:15 Sod 3.375 gm/ Dextrose IVPB 11/01/19 10:29 Q8H-IV COLBY Protocol Metoprolol Tartrate 50 mg 10/31/19 22:00 Lopressor - PO HS COLBY Pantoprazole Sodium 40 mg 11/01/19 10:00 Protonix Iv IVPUSH DAILY COLBY Tramadol HCl 25 mg 10/31/19 19:07 10/31/19 20:45 Ultram - PO 25 mg Q8H PRN Administration PAIN LEVEL 7 - 10 Valsartan 160 mg 11/01/19 10:00 Diovan - PO DAILY COLBY Vancomycin HCl 1,000 mg 11/01/19 19:00 Vancomycin (Pre-Docked) IVPB BID@0700,1900 COLBY Protocol Vancomycin HCl 1,000 mg 10/31/19 19:15 Vancomycin (Pre-Docked) IVPB 11/01/19 07:01 BID@0700,1900 [facility] Protocol A/P: 89 F h/o PVD w/ diagnosed L 3rd toe necrosis, DVT on Eliquis, HTN, HLD, chronic anemia presents for L 3rd toe necrosis with gangrene with planned surgery tomorrow for trans-metatarsal amputation. 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
[2019-10-31] MEDS: PIPERACILLIN/TAZOB 3.375 GM 3.375 GM in DEXTROSE 5%-WATER - 50 ML IVPB SCH (21:42)
[2019-10-31] MEDS ORDERED: SODIUM CHLORIDE 0.9% 1000 ML INFUS.BAG IV SCH (21:45)
[2019-10-31] MEDS ORDERED: METOPROLOL TARTRATE 50 MG TABLET (FP) PO SCH (22:00)
[2019-10-31] MEDS ORDERED: SODIUM CHLORIDE 1,000 ML IV SCH (23:00)
[2019-10-31] MEDS ORDERED: oxyCODONE HCL 5 MG TABLET PO ONE (23:56)
[2019-11-01] MEDS: ACETAMINOPHEN 1000 MG/100 ML VIAL (NON FORMULARY) IVPB SCH ×6 (00:45→23:26)
[2019-11-01] MEDS: GABAPENTIN 300 MG CAPSULE (FP) PO SCH ×4 (00:46→21:21)
[2019-11-01] MEDS: SODIUM CHLORIDE 1,000 ML IV SCH ×3 (00:48→23:30)
[2019-11-01] MEDS ORDERED: PIPERACILLIN/TAZOBACTAM 3.375 GM VIAL IVPB ONE ×3 (01:56→17:22)
[2019-11-01] MEDS ORDERED: DEXTROSE 5%-WATER - 50 ML IVPB ONE ×3 (01:56→17:23)
[2019-11-01] MEDS: VANCOMYCIN 1 GM in D5W (PRE-DOCKED) 1,000 MG/250 ML IVPB SCH ×2 (02:06→06:02)
[2019-11-01] MEDS: PIPERACILLIN/TAZOB 3.375 GM 3.375 GM in DEXTROSE 5%-WATER - 50 ML IVPB SCH ×4 (02:12→19:03)
[2019-11-01] MEDS: traMADol HCL 50 MG TABLET PO PRN (06:03)
[2019-11-01 08:19] LABS: BASO % 0.6 % (0-2.0); EOS % 1.5 % (0-4.5); LYMPH % 19.8 % (8-40); MCH 30.9 pg (25.7-33.7); MCHC 33.4 g/dl (32.0-36.0); MEAN CELL VOLUME 92.5 fl (80-96); MEAN PLT VOLUME 6.7 fl (7.5-11.1); MONO % 10.5 % (3.8-10.2); NEUT % 67.6 % (42.8-82.8); PLATELET COUNT 307 K/MM3 (134-434); RBC 3.24 M/mm3 (3.60-5.2); RDW 15.6 % (11.6-15.6)
[2019-11-01 08:29] LABS: INR 1.44 (0.83-1.09)
[2019-11-01 08:32] LABS: ACTIVATED PTT 27.3 SECONDS (25.2-36.5)
[2019-11-01 08:58] LABS: ALBUMIN 2.4 g/dl (3.4-5.0); BILIRUBIN,TOTAL 0.6 mg/dL (0.2-1); BLOOD UREA NITROGEN 10.9 mg/dL (7-18); CALCIUM 8.1 mg/dL (8.5-10.1); CREATININE 0.4 mg/dL (0.55-1.3); MAGNESIUM 1.9 mg/dL (1.8-2.4); PHOSPHOROUS 2.4 mg/dL (2.5-4.9); POTASSIUM 3.8 mmol/L (3.5-5.1); TOT PROT 4.8 g/dl (6.4-8.2)
[2019-11-01] MEDS: VALSARTAN 160 MG TABLET (UD) PO SCH (09:57)
--- NOTE | 2019-11-01 09:59 | PN ---
Progress Note (short form) - Note Progress Note: ID consult dictated imp/reccd Severe ischemia of the feet- left greater then right- continue vancomycin and zosyn, surgical followup RA Problem List - Problems (1) PVD (peripheral vascular disease) Code(s): I73.9 - PERIPHERAL VASCULAR DISEASE, UNSPECIFIED (2) Rheumatoid arthritis Code(s): M06.9 - RHEUMATOID ARTHRITIS, UNSPECIFIED
[2019-11-01] MEDS: PANTOPRAZOLE SODIUM 40 MG VIAL IVPUSH SCH (10:11)
--- NOTE | 2019-11-01 10:27 | CONS ---
INFECTIOUS DISEASE CONSULTATION DATE OF CONSULTATION: DATE OF DICTATION: 11/01/2019 HISTORY: This is an 89-year-old woman with a past medical history of peripheral vascular disease. She has been undergoing outpatient procedures to her legs. In August she had left lower lobe angioplasty with a popliteal athrectomy and angioplasty. She then underwent a 2nd procedure September 22 for a popliteal artery occlusion and anterior tibial artery occlusion. She had a popliteal artery angioplasty with stent placement, anterior tibial artery angioplasty. She subsequently underwent a 3rd procedure September 25 for popliteal stent occlusion. She was discharged home on September 26. [facility] with severe pain to the left foot. She has been unable to walk. She even is unable to eat because she is having such severe pain at baseline. She denies any fevers and chills. She has not been on antibiotics. She was admitted yesterday from [facility] for inpatient management and surgery today. PAST MEDICAL HISTORY: Notable for hypertension, hyperlipidemia, severe peripheral vascular disease. She has a history of DVT on Eliquis and a history of anemia. She has a history of rheumatoid arthritis as well. SURGICAL HISTORY: Notable for laminectomy, spinal fusion, kyphoplasty. She has had a benign salivary gland tumor resection and left carpal tunnel surgery in 2011. Her PCP is Dr. Hernandez. SOCIAL HISTORY: She lives with her son. 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 She is not able to walk due to the severe leg pain. She stop smoking 50 years ago. No history of alcohol or substance use. ALLERGIES: She has no known drug allergies. MEDICATIONS: At home include simvastatin, Protonix, methotrexate, prednisone. REVIEW OF SYSTEMS: She is unable to eat due to pain. She has no fevers or chills. PHYSICAL EXAMINATION: Vital Signs: Her temperature is 98.3. She has had no fever. Pulse is 75, blood pressure 145/95, respiratory rate is 20. General: A pleasant, elderly woman in no acute distress. HEENT: She is normocephalic. Her eyes are anicteric. Neck: Supple. Lungs: Clear to auscultation. Heart: Regular rate and rhythm. Abdomen: Soft, nontender. Extremities: Notable for ischemic changes of her left foot. The 1st and 2nd are red. The 3rd toe has dry gangrene. The 4th toe is ischemic. The entire foot is extremely tender to touch. She has erythema of the dorsum of the foot, and she has pain extending to the heel of the left foot. There are no palpable pulses. The right foot as well the 1st, 2nd, and 3rd toes are erythematous and ischemic. There is no purulence on either foot. There is no foul odor. There is no fluctuance. DIAGNOSTIC DATA: Labs are notable for admission white count of 14, today is 10, hemoglobin is 10, platelets are 307, BUN 10, creatinine 0.4. Sodium 129. Liver function tests are normal. She had a CAT scan of her leg done in the ER that shows no obvious abscess, and she has some soft tissue air at the site of the gangrenous 3rd toe. She has had a chest x-ray done as well that shows no acute process. In summary, this is an 89-year-old woman with severe peripheral vascular disease of both her feet, left greater than right. She has ongoing ischemia with gangrene of the toes of her left foot. The 3rd toe is necrotic. Plans are for anticipated surgery. Would continue the empiric vancomycin and Zosyn at this time. Further recommendations to follow. Overall prognosis is quite guarded in this instance. LEA HUGHES M.D. [id number]
--- NOTE | 2019-11-01 11:34 | EKG ---
Test Reason : Blood Pressure : / mmHG Vent. Rate : 093 BPM Atrial Rate : 093 BPM P-R Int : 140 ms QRS Dur : 100 ms QT Int : 368 ms P-R-T Axes : 042 -53 063 degrees QTc Int : 457 ms POOR DATA QUALITY, INTERPRETATION MAY BE ADVERSELY AFFECTED NORMAL SINUS RHYTHM LEFT AXIS DEVIATION INCOMPLETE RIGHT BUNDLE BRANCH BLOCK ABNORMAL ECG WHEN COMPARED WITH ECG OF 22-SEP-2019 08:18, CRITERIA FOR SEPTAL INFARCT ARE NO LONGER PRESENT Confirmed by ELIZABETH BECKHAM MD ([id number]) on 11/01/2019 11:34:06 AM Referred By: Confirmed By:ELIZABETH BECKHAM MD
--- NOTE | 2019-11-01 11:59 | CON.CARD ---
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 Patient has been followed by Dr. Goodwin for wound care. Patient was seen earlier in 5th floor wound care center where necrosis of the left foot third toe was noted and she was advised to proceed to Emergency Department. Patient agreed to trans-metatarsal amputation of left lower extremity tentatively scheduled tomorrow evening. Regarding CV symptoms, patient denies chest pain, shortness of breath, near or true syncope, palpitations, orthopnea, PND or LE edema. Last saw Dr. Fox in office 08/02/2019. Allergies: None Past surgical history: Spinal fusion, laminectomy, left carpal tunnel Social history: Former smoker. No alcohol or drug use reported - History Source History Provided By: Patient Limitations to Obtaining History: No Limitations - Past Medical History Cardio/Vascular: Yes: HTN, Hyperlipdemia Gastrointestinal: Yes: GERD Rheumatology: Yes: Rheumatoid Arthritis - Past Surgical History Past Surgical History: Yes: Cataract Removal, Laminectomy - Alcohol/Substance Use Hx Alcohol Use: No History of Substance Use: reports: None - Smoking History Smoking history: Former smoker Have you smoked in the past 12 months: No Aproximately how many cigarettes per day: 0 If you are a former smoker, when did you quit?: 50 years ago - Social History Usual Living Arrangement: Alone () ADL: Independent 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 History of Recent Travel: No Home Medications - Allergies Allergies/Adverse Reactions: Allergies Allergy/AdvReac Type Severity Reaction Status Date / Time No Known Allergies Allergy Verified 09/22/19 07:25 - Home Medications Home Medications: Ambulatory Orders Simvastatin [Zocor -] 20 mg PO HS 04/26/13 Pantoprazole Sodium [Protonix -] 40 mg PO DAILY 03/06/14 Methotrexate [Mexate -] 7 tab PO Q7D 09/22/17 Teriparatide [Forteo] 0.8 ml SQ DAILY 09/14/19 Apixaban [Eliquis] 5 mg PO BID #60 tablet 09/25/19 Valsartan [Diovan] 160 mg PO DAILY tablet 09/26/19 Silver Sulfadiazine [Silvadene] 85 gm TP DAILY #1 cream..g. 10/16/19 Diltiazem HCl [Cartia Xt] 180 mg PO DAILY 10/31/19 Gabapentin [Neurontin -] 1 cap PO TID 10/31/19 Oxycodone HCl 1 tab PO Q6H PRN 10/31/19 Carbidopa/Levodopa *Cr* 25/100 [Sinemet *Cr* 25/100 -] 1 tab PO TID 11/01/19 Escitalopram Oxalate [Lexapro -] 1 tab PO DAILY 11/01/19 Metoprolol Succinate [Toprol Xl] 1 tab PO HS 11/01/19 Pramipexole Dihydrochloride [Mirapex -] 1 tab PO DAILY 11/01/19 predniSONE [Deltasone -] 2.5 mg PO DAILY 11/01/19 Review of Systems - Review of Systems Musculoskeletal: reports: Extremity Pain (Left foot pain) Vital Signs: Vital Signs Temperature 97.2 F L 11/01/19 11:22 Pulse Rate 70 11/01/19 11:22 Respiratory Rate 18 11/01/19 11:22 Blood Pressure 145/70 11/01/19 11:22 O2 Sat by Pulse Oximetry (%) 97 10/31/19 20:30 Constitutional: Yes: No Distress, Calm Neck: Yes: Supple Respiratory: Yes: Regular, CTA Bilaterally Gastrointestinal: Yes: Normal Bowel Sounds, Soft Cardiovascular: Yes: Regular Rate and Rhythm JVD: No Carotid Bruit: No Heart Sounds: Yes: S1, S2 Murmur: Yes: Systolic Murmur, Grade 2 Edema: No - Other Data Labs, Other Data: CBC, BMP 11/01/19 07:48 11/01/19 07:48 INR, PTT INR 1.44 (0.83-1.09) H 11/01/19 07:48 Troponin, BNP 10/31/19 18:00 Troponin I < 0.02 Troponin, BNP 10/31/19 18:00 Troponin I < 0.02 NSR @ 93 IRBBB, LAD similar to previous 08/02/2019 Ejection Fraction %: LVEF > or = 40 % Imaging - Results Chest X-ray: Report Reviewed (NAD) Cat Scan: Report Reviewed (LLE: No osteo) Problem List - Problems (1) PVD (peripheral vascular disease) Code(s): I73.9 - PERIPHERAL VASCULAR DISEASE, UNSPECIFIED (2) Rheumatoid arthritis Code(s): M06.9 - RHEUMATOID ARTHRITIS, UNSPECIFIED Qualifiers: Rheumatoid arthritis location: unspecified site (3) HTN (hypertension) Code(s): I10 - ESSENTIAL (PRIMARY) HYPERTENSION Qualifiers: Hypertension type: essential hypertension Qualified Code(s): I10 - Essential (primary) hypertension (4) Ischemic pain of left foot Code(s): M79.672 - PAIN IN LEFT FOOT; I99.9 - UNSPECIFIED DISORDER OF CIRCULATORY SYSTEM (5) Paroxysmal atrial fibrillation Code(s): I48.0 - PAROXYSMAL ATRIAL FIBRILLATION (6) Type 2 diabetes mellitus with foot ulcer Code(s): E11.621 - TYPE 2 DIABETES MELLITUS WITH FOOT ULCER; L97.509 - NON- PRESSURE CHRONIC ULCER OTH PRT UNSP FOOT W UNSP SEVERITY Qualifiers: Diabetes mellitus mcfp insulin use: without terminal press operator use Qualified Code(s): E11.621 - Type 2 diabetes mellitus with foot ulcer; L97.509 - Non- pressure chronic ulcer of other part of unspecified foot with unspecified severity Assessment/Plan 11/01/2019 Echo: Normal LV and RV size and fxn, mod-severe MR, severe TR RVSP 40 -50 mmHg, 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 Pre-op CV evaluation prior to left TMA 2. 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 PAF->SR on Eliquis 4. DVT 5. HTN 6. Hyperlipidemia 7. Anemia 8. Rheumatod arthritis P:1, Given absence of symptoms of acute coronary syndrome, decompensated CHF, obstructive stenotic valve lesions or malignant arrhythmia, there are no absolute CV contraindications against proceeding with left TMA 2. Continue empiric abx course 3. Hold Eliquis 2 days prior to surgery and resume once post-op hemostasis achieved 4. Continue losartan 100 qd, Toprol XL 50 qd, Zocor 20 qhs, Cardizem CD 180 qd, Diovan 160 qd 5. Thank you for consultative opportunity
--- NOTE | 2019-11-01 13:59 | PN ---
Teaching Attending Note Name of Resident: Torey Arana ATTENDING PHYSICIAN STATEMENT I saw and evaluated the patient. I reviewed the resident's note and discussed the case with the resident. I agree with the resident's findings and plan as documented. SUBJECTIVE: No fever or chills. has pain in toes. no SOB or CP. bed ridden no actual physical activity. She stated her DVT was many years ago. OBJECTIVE: NAD, awake, alert, cooperative. CV: RRR, 3/6 SM at LLSB, [place], and RUSB. No radiation to carotids or axilla. Lungs: CTAB Abd: soft, NT, Nd , NL BS Ext: no edema on legs. L first 4th digits with dark discoloration, and loss of sensation. ( third digit is completely black). R sided gigits 1-3 with dark discoloration at the tip. decreased but present sensation. DP and PT were not felt b/l. erythema but no increased warmth on L dorsal foot. and slightly on L dorsal. L heel ulcer with no drainage. ASSESSMENT AND PLAN: 89 y/o lady with h/o PVD, HTN, remote DVT, HLP, esophageal ulcer, IBS, paroxysmal AF,s/p angioplasty, and anemia who presented after being sent bt Dr. 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 CT scan reviewed. EKG reviewed ( bifasicular block ). - cont Abx vanco and zosyn - for TMT amputation this afternoon - pain control with oxy and morphine . - NPO for now - has a systolic murmur, at apex and LLSB . last echo in system 2017 showed severe MR, and severe TR. has poor functional capacity, her EKG as above. No signs of CHF, ACS, or arrhythmias at this point. seen by card and Recs are still pending in note. Will leave it up to card to decide on pre-op risk stratification - OK to hold eliquis before sx as her DVT was many years ago. 2- h/o HTN, paroxysmal A fib: - cont cardizem, metoprolo, - resume eliquis as soon as possible after sx 3- H/o DVT : many years ago per patient - will resume Eliquis after sx if surgeon is OK with this 4- Med list indicate MTX and prednisone. Will confirm and check with patient about indications and will give a higher dose in the tate-surgical period 5- Hyponatremia: not clear of etiology.Not on an y meds that can cause it as per current list. slightly improved today. will check Urine and serum osmolalities and U Na and Cr. could be due hypovolemia. cont trial of IVF HLOC
[2019-11-01] MEDS: oxyCODONE HCL 5 MG TABLET PO PRN ×2 (15:21→21:21)
--- NOTE | 2019-11-01 15:23 | ECHO ---
Name: FLAKOALEXANDRIA Exam:Adult Echocardiogram Study Date: 11/01/2019 11:04 AM Age: 89 yrs Height: 63 in Weight: 130 lb BSA: 1.6 m2 MMode/2D Measurements & Calculations IVSd: 0.92 cm Ao root diam: 2.4 cm LVIDd: 2.9 cm LA dimension: 2.6 cm LVIDs: 2.6 cm ACS: 1.2 cm LVPWd: 1.1 cm EDV(Teich): 33.6 ml LVOT diam: 1.3 cm ESV(Teich): 23.5 ml RV S Jc: 14.6 cm/sec Doppler Measurements & Calculations MV E max jc: 138.8 cm/sec MVA(VTI): 0.95 cm2 MV A max jc: 147.3 cm/sec MV V2 max: 144.2 cm/sec MV E/A: 0.94 MV max P.3 mmHg MV dec time: 0.23 sec MV V2 mean: 82.9 cm/sec MV mean P.4 mmHg MV V2 VTI: 39.7 cm Ao V2 max: 203.9 cm/sec LV V1 max P.1 mmHg Ao max P.6 mmHg LV V1 mean P.9 mmHg LV V1 max: 123.4 cm/sec HAMZAH(V,D): 0.82 cm2 LV V1 mean: 79.8 cm/sec LV V1 VTI: 27.8 cm MR max jc: 578.5 cm/sec SV(LVOT): 37.9 ml MR max P.2 mmHg TR max jc: 295.2 cm/sec PA V2 max: 46.9 cm/sec TR max P.9 mmHg PA max P.88 mmHg Med Peak E' Jc: 4.2 cm/sec Med E/e': 33.1 Lat Peak E' Jc: 5.0 cm/sec Lat E/e': 27.9 Procedure A two-dimensional transthoracic echocardiogram with color flow and Doppler was performed. The study w as technically difficult with many images being suboptimal in quality. Left Ventricle The left ventricular size, thickness and function are normal. The left ventricle is not well visualiz ed. The left ventricular ejection fraction is normal. Regional wall motion abnormalities cannot be excluded d ue to limited visualization. Right Ventricle The right ventricle is not well visualized. Atria Normal left and right atrial size and function. Mitral Valve There is moderate mitral valve thickening. There is moderate mitral annular calcification. There is m ild mitral stenosis. 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 There is moderate to severe ana l regurgitation. Tricuspid Valve There is mild to moderate tricuspid valve thickening. There is no tricuspid stenosis. There is severe tricuspid regurgitation. Right ventricular systolic pressure is elevated at 40-50mmHg. Aortic Valve The aortic valve is not well visualized. There is moderate aortic valve thickening. There is moderate aortic sclerosis.;. Hemodynamically significant valvular aortic stenosis cannot be excluded. No aortic regur gitation is present. Pulmonic Valve The pulmonic valve is not well visualized. Great Vessels The aortic root is normal size. Pericardium/Pleura There is no pericardial effusion. Interpretation Summary The study was technically difficult with many images being suboptimal in quality. The left ventricular size, thickness and function are normal The left ventricular ejection fraction is normal. Regional wall motion abnormalities cannot be excluded due to limited visualization. The left ventricle is not well visualized. There is moderate to severe mitral regurgitation. There is severe tricuspid regurgitation. Right ventricular systolic pressure is elevated at 40-50mmHg. There is mild mitral stenosis. 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 There is moderate mitral annular calcification. There is moderate aortic valve thickening. There is moderate aortic sclerosis.; MD Ed Holloway 11/01/2019 03:23 PM
[2019-11-01] MEDS ORDERED: predniSONE 5 MG TABLET (UD) PO ONE (15:33)
--- NOTE | 2019-11-01 15:42 | PN ---
Physical Exam: SUBJECTIVE: Patient seen and examined at bedside. She complains of pain in her LEFT foot and is being taken to surgery today for TMA of 3rd digit. She denies NVFD. She denies SOB and CP. OBJECTIVE: Vital Signs Temp Pulse Resp BP Pulse Ox 98 F 70 20 145/70 97 11/01/19 17:19 11/01/19 17:19 11/01/19 17:19 11/01/19 17:19 10/31/19 20:30 HEAD: NCAT EYES: LEONIDAS, EOMI, conjunctiva clear. ENT: Ears normal, nares patent, oropharynx clear without exudates. Moist mucous membranes. NECK: Normal range of motion, supple without lymphadenopathy, JVD, or masses. LUNGS: CTAB. No wheezes, and no crackles. No accessory muscle use. HEART: RRR s1 s2. 2/6 systolic murmur at LEFT sternal border ABDOMEN: Soft, BS present in all 4 quadrants, non-distended, no JVD, MUSCULOSKELETAL: No bony deformities or tenderness. No CVA tenderness. UPPER EXTREMITIES: 2+ pulses, warm, well-perfused. No cyanosis. No clubbing. No peripheral edema. LOWER EXTREMITIES: LEFT digit 1 and 2 errythematous, 3rd digit black and necrotic. RIGHT foot first and second digit errythematous. Covered LEFT pressure ulcer at heel 1x1cm. 1+ pulses, warm. No calf tenderness. No peripheral edema. NEUROLOGICAL: No focal deficits. Cranial nerves II-XII intact. Normal speech. Gait not appreciated. PSYCHIATRIC: Cooperative. Good eye contact. Appropriate mood and affect. SKIN: Warm, dry, normal turgor, no rashes or lesions noted, normal capillary refill Laboratory Results - last 24 hr 10/31/19 10/31/19 10/31/19 18:00 18:00 18:00 WBC 14.3 H RBC 3.94 Hgb 12.0 Hct 37.2 MCV 94.4 MCH 30.4 MCHC 32.2 RDW 16.2 H Plt Count 372 D MPV 7.5 D Absolute Neuts (auto) 11.0 H Neutrophils % 76.7 Lymphocytes % 13.5 Monocytes % 9.1 Eosinophils % 0.1 Basophils % 0.6 Nucleated RBC % 0 PT with INR 15.80 H INR 1.34 H PTT (Actin FS) Sodium 128 L Potassium 4.5 Chloride 91 L Carbon Dioxide 31 Anion Gap 7 L BUN 14.6 Creatinine 0.6 Est GFR (CKD-EPI)AfAm 93.66 Est GFR (CKD-EPI)NonAf 80.81 Random Glucose 98 Lactic Acid Calcium 9.2 Phosphorus Magnesium Total Bilirubin 0.5 AST 27 ALT 26 Alkaline Phosphatase 116 Creatine Kinase 82 Troponin I < 0.02 Total Protein 6.5 Albumin 3.4 Blood Type Antibody Screen 10/31/19 10/31/19 11/01/19 18:00 21:26 07:48 WBC 10.0 RBC 3.24 L Hgb 10.0 L Hct 30.0 L D MCV 92.5 MCH 30.9 MCHC 33.4 RDW 15.6 Plt Count 307 MPV 6.7 L D Absolute Neuts (auto) 6.7 Neutrophils % 67.6 Lymphocytes % 19.8 D Monocytes % 10.5 H Eosinophils % 1.5 D Basophils % 0.6 Nucleated RBC % 0 PT with INR INR PTT (Actin FS) Sodium Potassium Chloride Carbon Dioxide Anion Gap BUN Creatinine Est GFR (CKD-EPI)AfAm Est GFR (CKD-EPI)NonAf Random Glucose Lactic Acid 1.6 Calcium Phosphorus Magnesium Total Bilirubin AST ALT Alkaline Phosphatase Creatine Kinase Troponin I Total Protein Albumin Blood Type A POSITIVE Antibody Screen Negative 11/01/19 11/01/19 07:48 07:48 WBC RBC Hgb Hct MCV MCH MCHC RDW Plt Count MPV Absolute Neuts (auto) Neutrophils % Lymphocytes % Monocytes % Eosinophils % Basophils % Nucleated RBC % PT with INR 17.00 H INR 1.44 H PTT (Actin FS) 27.3 Sodium 129 L Potassium 3.8 Chloride 95 L Carbon Dioxide 27 Anion Gap 6 L BUN 10.9 Creatinine 0.4 L Est GFR (CKD-EPI)AfAm 107.03 Est GFR (CKD-EPI)NonAf 92.34 Random Glucose 97 Lactic Acid Calcium 8.1 L Phosphorus 2.4 L Magnesium 1.9 Total Bilirubin 0.6 AST 20 ALT 20 Alkaline Phosphatase 83 Creatine Kinase Troponin I Total Protein 4.8 L Albumin 2.4 L Blood Type Antibody Screen Active Medications Acetaminophen (Ofirmev Injection -) 1,000 mg IVPB Q6H [facility] Last Admin: 11/01/19 12:28 Dose: 1,000 mg Atorvastatin Calcium (Lipitor -) 10 mg PO HS [facility] Diltiazem HCl (Cardizem Cd -) 180 mg PO DAILY [facility] Last Admin: 11/01/19 09:57 Dose: 180 mg Docusate Sodium (Colace -) 100 mg PO BID PRN PRN Reason: CONSTIPATION Escitalopram Oxalate (Lexapro -) 20 mg PO DAILY [facility] Gabapentin (Neurontin -) 300 mg PO TID [facility] Last Admin: 11/01/19 14:40 Dose: 300 mg Piperacillin Sod/Tazobactam (Sod 3.375 gm/ Dextrose) 50 mls @ 100 mls/hr IVPB Q8H-IV [facility]; Protocol Sodium Chloride (Normal Saline -) 1,000 mls @ 50 mls/hr IV ASDIR [facility] Last Admin: 11/01/19 00:48 Dose: 50 mls/hr Vancomycin HCl (Vancomycin (Pre-Docked)) 1,000 mg in 250 mls @ 200 mls/hr IVPB Q24H [facility]; Protocol Morphine Sulfate (Morphine Sulfate) 2 mg IVPUSH Q4H PRN PRN Reason: PAIN LEVEL 6-10 Non-Formulary Medication (Teriparatide [Forteo]) 0.8 ml SQ DAILY [facility] Oxycodone HCl (Roxicodone -) 5 mg PO Q4H PRN PRN Reason: PAIN LEVEL 1-5 Last Admin: 11/01/19 15:21 Dose: 5 mg Pantoprazole Sodium (Protonix Iv) 40 mg IVPUSH DAILY [facility] Last Admin: 11/01/19 10:11 Dose: 40 mg Prednisone (Deltasone -) 10 mg PO DAILY [facility] Stop: 11/03/19 18:00 Tramadol HCl (Ultram -) 25 mg PO Q8H PRN PRN Reason: PAIN LEVEL 7 - 10 Last Admin: 11/01/19 06:03 Dose: 25 mg Valsartan (Diovan -) 160 mg PO DAILY [facility] Last Admin: 11/01/19 09:57 Dose: 160 mg Ambulatory Orders Simvastatin [Zocor -] 20 mg PO HS 04/26/13 Pantoprazole Sodium [Protonix -] 40 mg PO DAILY 03/06/14 Methotrexate [Mexate -] 7 tab PO Q7D 09/22/17 Teriparatide [Forteo] 0.8 ml SQ DAILY 09/14/19 Apixaban [Eliquis] 5 mg PO BID #60 tablet 09/25/19 Valsartan [Diovan] 160 mg PO DAILY tablet 09/26/19 Silver Sulfadiazine [Silvadene] 85 gm TP DAILY #1 cream..g. 10/16/19 Diltiazem HCl [Cartia Xt] 180 mg PO DAILY 10/31/19 Gabapentin [Neurontin -] 1 cap PO TID 10/31/19 Oxycodone HCl 1 tab PO Q6H PRN 10/31/19 Carbidopa/Levodopa *Cr* 25/100 [Sinemet *Cr* 25/100 -] 1 tab PO TID 11/01/19 Escitalopram Oxalate [Lexapro -] 1 tab PO DAILY 11/01/19 Metoprolol Succinate [Toprol Xl] 1 tab PO HS 11/01/19 Pramipexole Dihydrochloride [Mirapex -] 1 tab PO DAILY 11/01/19 predniSONE [Deltasone -] 2.5 mg PO DAILY 11/01/19 ASSESSMENT/PLAN: 89 y/o female PMH HTN, HLD, DVT (onEliquis), peripheral venous disease (s/p three angioplasty), anemia presents with complaint of LEFT foot pain, sent from Vascular Surgery, for scheduled TMA today. # PVD, LEFT 3rd digit necrosis - CT: 0.4x0.3 cm pocket of soft tissue air accumulation noted along plantar surface of distal phalynx of 3rd digit, no abscess or osteomyelitis - NPO for surgery today - Vancomycin 1 gm IV QD and Zosyn 3.375 gm IV q8h - Oxycodone 5 mg PO q4h PRN and morphine 2 gm IV q4h PRN. - Prednisone 10 mg PO before surgery and QD for 2 days # Hyponatremia - 128 on admission and 129 today - Urine and serum osmolalities and U Na and Cr. - Poss 2/2 hypovolemia # A fib - Hold Eliquis 2 days prior to surgery and resume once post-op hemostasis achieved # Grade 2 systolic murmur - Last echo (2016): Severe MR and TR. Ejection Fraction LVEF > or = 40% - EKG: NSR @ 93. IRBBB, LAD similar to previous 08/02/2019 - Consult cardiology: Given absence of symptoms of acute coronary syndrome, decompensated CHF, obstructive stenotic valve lesions or malignant arrhythmia, there are no absolute CV contraindications against proceeding with left TMA # ?Parkinson Disease - Pt reports not have dx of PD but med reconciliation supports recent rx of carbidopa/levodopa and pramipexole as above. - Will clarify with PCP # HTN - Continue home regimen of Metoprolol Succinate 50 mg PO QD, Dltiazem 180 mg PO QD, Valsartan 160 mg PO QD # HLD - Continue home regimen of Simvastatin 20 mg PO HS # F/E/N - NS - Cont. to monitor - NPO # DVT prophylaxis - Hold for surgery - Normally on eliquis # Disposition - Med/surg Jordi Bello MD Visit type - Emergency Visit Emergency Visit: No - New Patient This patient is new to me today: Yes Date on this admission: 11/01/19 - Critical Care Critical Care patient: Yes Total Critical Care Time (in minutes): 40 Critical Care Statement: The care of this patient involved high complexity decision making to prevent further life threatening deterioration of the patient 's condition and/or to evaluate & treat vital organ system(s) failure or risk of failure. ATTENDING PHYSICIAN STATEMENT I saw and evaluated the patient. I reviewed the resident's note and discussed the case with the resident. I agree with the resident's findings and plan as documented. SUBJECTIVE: OBJECTIVE: ASSESSMENT AND PLAN:
--- NOTE | 2019-11-01 18:53 | CONSULT ---
Consult - text type - Consultation Consultation Note: Podiatry Consultation: 89 year old pleasant female, history of HTN, AR, DVT on eliquis AC presented to wound healing center yesterday with progressive gangrenous changes to the left foot. The patient noted significant increase in pain over the past few weeks. She also noted increase in redness to the forefoot, which prompted her son to bring her to wound healing center. Sent to ED for admission yesterday. Currently afebrile. She has undergone angioplasty LLE with Dr. Goodwin and is a long time wound healing patient. DEB: L foot: pedal pulses nonpalpable, dopplerable AT to the midfoot, CFT absent to toes. There is dry gangrenous changes to the forefoot all digits with mild erythema to the forefoot, no purulent drainage, no fluctuance, no soft tissue crepitus, no streaking cellulitis, no signs of active infection. Significant tenderness to palpation. Imp: 89 year old PVD female with gangrene left forefoot Patient seen and evaluated in pre-op holding with Dr. Vigil anesthesia. After thorough discussion, will opt to defer surgery due to hyponatremia. Additionally she is at increased risk for IV sedation given her low sodium. She is getting IVF hydration, will check labwork in the morning and if improved , will proceed with transmetatarsal amputation tomorrow morning. NPO at midnight, will follow. Discussed case with hospitalist team, vascular sx, anesthesia. Isac Loya DPM
[2019-11-01] MEDS ORDERED: VANCOMYCIN 1 GM in D5W (PRE-DOCKED) 1,000 MG/250 ML IVPB SCH (19:00)
[2019-11-01] MEDS: ATORVASTATIN CA 10 MG TABLET (FP) PO SCH (21:21)
[2019-11-02] MEDS ORDERED: DEXTROSE 5%-WATER - 50 ML IVPB ONE ×3 (01:33→17:44)
[2019-11-02] MEDS ORDERED: PIPERACILLIN/TAZOBACTAM 3.375 GM VIAL IVPB ONE ×3 (01:33→17:44)
[2019-11-02] MEDS: PIPERACILLIN/TAZOB 3.375 GM 3.375 GM in DEXTROSE 5%-WATER - 50 ML IVPB SCH ×3 (01:46→17:47)
[2019-11-02] MEDS: GABAPENTIN 300 MG CAPSULE (FP) PO SCH ×3 (05:44→21:12)
[2019-11-02] MEDS: ACETAMINOPHEN 1000 MG/100 ML VIAL (NON FORMULARY) IVPB SCH (05:46)
[2019-11-02] MEDS: VANCOMYCIN 1 GRAM (PRE-DOCKED) 1,000 MG/250 ML BAG IVPB SCH (06:23)
[2019-11-02] MEDS ORDERED: PT OWN MED DRAWER 7, Y5N ONE ×3 (08:40→20:50)
[2019-11-02] MEDS: VALSARTAN 160 MG TABLET (UD) PO SCH ×2 (08:48→09:03)
[2019-11-02] MEDS: ESCITALOPRAM OXALATE 10 MG TABLET (FP) PO SCH ×2 (08:49→09:03)
[2019-11-02] MEDS: predniSONE 5 MG TABLET (UD) PO SCH ×2 (08:49→09:03)
[2019-11-02] MEDS: traMADol HCL 50 MG TABLET PO PRN (08:49)
[2019-11-02 08:54] LABS: HEMATOCRIT 37.9 % (32.4-45.2); HEMOGLOBIN 12.3 GM/dL (10.7-15.3); MCH 30.1 pg (25.7-33.7); MCHC 32.4 g/dl (32.0-36.0); MEAN CELL VOLUME 92.7 fl (80-96); MEAN PLT VOLUME 6.7 fl (7.5-11.1); PLATELET COUNT 434 K/MM3 (134-434); RBC 4.09 M/mm3 (3.60-5.2); RDW 15.9 % (11.6-15.6); WHITE BLOOD COUNT 14.7 K/mm3 (4.0-10.0)
[2019-11-02] MEDS: PANTOPRAZOLE SODIUM 40 MG VIAL IVPUSH SCH (09:12)
[2019-11-02 09:25] LABS: ALBUMIN 2.9 g/dl (3.4-5.0); BILIRUBIN,TOTAL 0.4 mg/dL (0.2-1); BLOOD UREA NITROGEN 11.4 mg/dL (7-18); CALCIUM 8.7 mg/dL (8.5-10.1); CREATININE 0.7 mg/dL (0.55-1.3); MAGNESIUM 1.9 mg/dL (1.8-2.4); PHOSPHOROUS 2.9 mg/dL (2.5-4.9); POTASSIUM 4.4 mmol/L (3.5-5.1); TOT PROT 5.8 g/dl (6.4-8.2)
[2019-11-02] MEDS ORDERED: PRAMIPEXOLE DIHYDROCHLORIDE 0.25 MG TABLET PO SCH (10:00)
--- NOTE | 2019-11-02 10:16 | PN ---
Progress Note (short form) - Note Progress Note: Vascular Surgery Surgery postponed today due to low sodium. Please medically optimize. Will rebook for maggie with podiatry. Eliquis restarted. Please do not stop eliquis. Will do surgery on eliquis. Moose Goodwin DO
--- NOTE | 2019-11-02 10:26 | PN ---
Progress Note, Physician History of Present Illness: Left TMA postponed due to hyponatremia. Eating lunch. - Current Medication List Current Medications: Active Medications Acetaminophen (Ofirmev Injection -) 1,000 mg IVPB Q6H [facility] Last Admin: 11/02/19 05:46 Dose: 1,000 mg Apixaban (Eliquis -) 5 mg PO BID [facility] Atorvastatin Calcium (Lipitor -) 10 mg PO HS [facility] Last Admin: 11/01/19 21:21 Dose: 10 mg Diltiazem HCl (Cardizem Cd -) 180 mg PO DAILY [facility] Last Admin: 11/02/19 09:02 Dose: Not Given Docusate Sodium (Colace -) 100 mg PO BID PRN PRN Reason: CONSTIPATION Escitalopram Oxalate (Lexapro -) 20 mg PO DAILY [facility] Last Admin: 11/02/19 09:03 Dose: Not Given Gabapentin (Neurontin -) 300 mg PO TID [facility] Last Admin: 11/02/19 05:44 Dose: Not Given Piperacillin Sod/Tazobactam (Sod 3.375 gm/ Dextrose) 50 mls @ 100 mls/hr IVPB Q8H-IV [facility]; Protocol Last Admin: 11/02/19 09:11 Dose: 100 mls/hr Sodium Chloride (Normal Saline -) 1,000 mls @ 50 mls/hr IV ASDIR [facility] Last Admin: 11/01/19 23:30 Dose: Not Given Vancomycin HCl (Vancomycin (Pre-Docked)) 1,000 mg in 250 mls @ 200 mls/hr IVPB Q24H [facility]; Protocol Last Admin: 11/02/19 06:23 Dose: 200 mls/hr Morphine Sulfate (Morphine Sulfate) 2 mg IVPUSH Q4H PRN PRN Reason: PAIN LEVEL 6-10 Non-Formulary Medication (Teriparatide [Forteo]) 0.8 ml SQ DAILY [facility] Oxycodone HCl (Roxicodone -) 5 mg PO Q4H PRN PRN Reason: PAIN LEVEL 1-5 Last Admin: 11/01/19 21:21 Dose: 5 mg Pantoprazole Sodium (Protonix Iv) 40 mg IVPUSH DAILY [facility] Last Admin: 11/02/19 09:12 Dose: 40 mg Prednisone (Deltasone -) 10 mg PO DAILY [facility] Stop: 11/03/19 18:00 Last Admin: 11/02/19 09:03 Dose: Not Given Tramadol HCl (Ultram -) 25 mg PO Q8H PRN PRN Reason: PAIN LEVEL 7 - 10 Last Admin: 11/02/19 08:49 Dose: 25 mg Valsartan (Diovan -) 160 mg PO DAILY [facility] Last Admin: 11/02/19 09:03 Dose: Not Given - Objective Vital Signs: Vital Signs Temperature 98.1 F 11/02/19 06:17 Pulse Rate 82 11/02/19 06:17 Respiratory Rate 20 11/02/19 06:17 Blood Pressure 143/70 11/02/19 06:17 O2 Sat by Pulse Oximetry (%) 99 11/01/19 21:00 Constitutional: Yes: No Distress, Calm, Thin Neck: Yes: Supple Cardiovascular: Yes: Regular Rate and Rhythm Respiratory: Yes: Regular, CTA Bilaterally Gastrointestinal: Yes: Normal Bowel Sounds, Soft Edema: No (Dry gangrene of toes) Labs: CBC, BMP 11/02/19 08:05 11/02/19 08:05 INR, PTT INR 1.44 (0.83-1.09) H 11/01/19 07:48 Problem List - Problems (1) PVD (peripheral vascular disease) Code(s): I73.9 - PERIPHERAL VASCULAR DISEASE, UNSPECIFIED (2) Rheumatoid arthritis Code(s): M06.9 - RHEUMATOID ARTHRITIS, UNSPECIFIED Qualifiers: Rheumatoid arthritis location: unspecified site (3) HTN (hypertension) Code(s): I10 - ESSENTIAL (PRIMARY) HYPERTENSION Qualifiers: Hypertension type: essential hypertension Qualified Code(s): I10 - Essential (primary) hypertension (4) Ischemic pain of left foot Code(s): M79.672 - PAIN IN LEFT FOOT; I99.9 - UNSPECIFIED DISORDER OF CIRCULATORY SYSTEM (5) Paroxysmal atrial fibrillation Code(s): I48.0 - PAROXYSMAL ATRIAL FIBRILLATION (6) Type 2 diabetes mellitus with foot ulcer Code(s): E11.621 - TYPE 2 DIABETES MELLITUS WITH FOOT ULCER; L97.509 - NON- PRESSURE CHRONIC ULCER OTH PRT UNSP FOOT W UNSP SEVERITY Qualifiers: Diabetes mellitus combat control manager insulin use: without detention use Qualified Code(s): E11.621 - Type 2 diabetes mellitus with foot ulcer; L97.509 - Non- pressure chronic ulcer of other part of unspecified foot with unspecified severity Assessment/Plan 11/01/2019 Echo: Normal LV and RV size and fxn, mod-severe MR, severe TR RVSP 40 -50 mmHg, 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 Pre-op CV evaluation prior to left TMA 2. PAD s/p VARNISH REMOVER with bilateral toe necrosis 3. PAF->SR on Eliquis 4. DVT 5. HTN 6. Hyperlipidemia 7. Anemia 8. Rheumatod arthritis 9. Hyponatremia P:1, Given absence of symptoms of acute coronary syndrome, decompensated CHF, obstructive stenotic valve lesions or malignant arrhythmia, there are no absolute CV contraindications against proceeding with left TMA 2. Continue empiric abx course 3. Continue Eliquis periop per vascular surgery 4. Continue losartan 100 qd, Toprol XL 50 qd, Zocor 20 qhs, Cardizem CD 180 qd, Diovan 160 qd 5. Checking urine electrolytes, add NaCl
--- NOTE | 2019-11-02 10:29 | PN ---
Progress Note (short form) - Note Progress Note: Seen with Dr. Goodwin. Case cancelled again today due to low sodium. Spoke with Anesthesia. For clearance needs to be above 130. Spoke with hospitilist. Need to get optimized today and they will try to get above threshold Will plan for surgery again tomorrow in the evening around 445 if medically stable. Will follow.
[2019-11-02] MEDS ORDERED: ACETAMINOPHEN 325 MG TABLET (FP) PO PRN (11:17)
[2019-11-02] MEDS: APIXABAN 5 MG TABLET PO SCH ×2 (11:50→21:12)
[2019-11-02] MEDS: oxyCODONE HCL 5 MG TABLET PO PRN ×3 (11:50→21:44)
--- NOTE | 2019-11-02 12:23 | PN ---
Teaching Attending Note Name of Resident: Jordi Bello ATTENDING PHYSICIAN STATEMENT I saw and evaluated the patient. I reviewed the resident's note and discussed the case with the resident. I agree with the resident's findings and plan as documented. SUBJECTIVE: No fever or chills. No KEANE, no CP . pain in feet is controlled . She is frustrated due to cancellation of the surgery OBJECTIVE: NAD, awake, alert, cooperative. CV: RRR, 3/6 SM at LLSB, [place], and RUSB. No radiation to carotids or axilla. Lungs: CTAB Abd: soft, NT, Nd , NL BS. Ext: no edema on legs. L first 4th digits with dark discoloration ( worse than yesterday ), and loss of sensation. ( third digit is completely black). discoloration expand to base of 4,5th digits R sided digits 1-3 with dark discoloration at the tip. DP and PT were not felt b /l. erythema but no increased warmth on L dorsal foot and R dorsal foot. . L heel ulcer with no drainage. ASSESSMENT AND PLAN: 89 y/o lady with h/o PVD, HTN, remote DVT, HLP, esophageal ulcer, IBS, paroxysmal AF,s/p angioplasty, and anemia who presented after being sent bt Dr. 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 - cont Abx vanco and zosyn - vanco trough before 4th dose - d/w Dr. Juárez. sx was canceled today due to hyponatremia 2- h/o HTN, paroxysmal A fib: - cont cardizem, metoprolol, - resume eliquis as soon as possible after sx 3- Hypotonic Hyponatremia: this is a chronic problem. EMR reviewed adn Na has been low since 2017. per family this problem was never worked up as out pt , and no dx was given. she is not on diuretics at home. no excessive free water intake at home. Not on any meds that can cause it. - volume status is euvolemic. urine osmolality is elevated. Urine Na is elevated but could be in part due to the NS. She might have SIADGH given all this and also given the fact that her Na did not improve with NS - will check TSH - will dc IVF and Start fluid restriction 800 cc in 24 hr - will consult renal to confirm diagnosis - is SIADH is supected , it needs to be worked up with CT of chest and then other imaging 4- H/o DVT : many years ago per patient - will resume Eliquis after sx if surgeon is OK with this 5- Med list indicate MTX and prednisone. patient and her son are not sure of indication. will try to confirm with PCP. - cont prednisone 10 for now in tate-op period to avoid adrenal insufficiency DVT Px for now while off elliquis
--- NOTE | 2019-11-02 12:34 | PN ---
Physical Exam: SUBJECTIVE: Patient seen and examined at bedside. She states her LE pain is covered for now. She did not go for TMA last night 2/2 low sodium (129). Will continue 5 mg eliquis PO BID per surgery recommendation. Plan for surgery tomorrow. NPO after midnight. OBJECTIVE: Vital Signs Period Temp Pulse Resp BP Sys/Ying Pulse Ox Last 24 Hr 97.7 F-98.1 F 70-82 18-20 125-145/61-70 99 HEAD: NCAT EYES: LEONIDAS, EOMI, conjunctiva clear. ENT: Ears normal, nares patent, oropharynx clear without exudates. Moist mucous membranes. NECK: Normal range of motion, supple without lymphadenopathy, JVD, or masses. LUNGS: CTAB. No wheezes, and no crackles. No accessory muscle use. HEART: RRR s1 s2. 2/6 systolic murmur at LEFT sternal border ABDOMEN: Soft, BS present in all 4 quadrants, non-distended, no JVD, MUSCULOSKELETAL: No bony deformities or tenderness. No CVA tenderness. UPPER EXTREMITIES: 2+ pulses, warm, well-perfused. No cyanosis. No clubbing. No peripheral edema. LOWER EXTREMITIES: LEFT digit 1 and 2 errythematous now purple/darker than yesterday, 3rd digit black and necrotic. RIGHT foot first and second digit errythematous, also purple and worsening. Covered LEFT pressure ulcer at heel 1x1cm. 1+ pulses, warm. No calf tenderness. No peripheral edema. NEUROLOGICAL: No focal deficits. Cranial nerves II-XII intact. Normal speech. Gait not appreciated. PSYCHIATRIC: Cooperative. Good eye contact. Appropriate mood and affect. SKIN: Warm, dry, normal turgor, no rashes or lesions noted, normal capillary refill Laboratory Results - last 24 hr 11/01/19 11/01/19 11/01/19 16:25 17:30 17:30 WBC RBC Hgb Hct MCV MCH MCHC RDW Plt Count MPV Sodium Potassium Chloride Carbon Dioxide Anion Gap BUN Creatinine Est GFR (CKD-EPI)AfAm Est GFR (CKD-EPI)NonAf Random Glucose Serum Osmolality 265 L Calcium Phosphorus Magnesium Total Bilirubin AST ALT Alkaline Phosphatase Total Protein Albumin Urine Osmolality 589 Ur Random Creatinine 55.0 Ur Random Sodium 114 11/01/19 11/02/19 11/02/19 17:30 08:05 08:05 WBC 14.7 H RBC 4.09 Hgb 12.3 Hct 37.9 D MCV 92.7 MCH 30.1 MCHC 32.4 RDW 15.9 H Plt Count 434 D MPV 6.7 L Sodium 128 L Potassium 4.4 Chloride 93 L Carbon Dioxide 27 Anion Gap 9 BUN 11.4 Creatinine 0.7 Est GFR (CKD-EPI)AfAm 89.03 Est GFR (CKD-EPI)NonAf 76.82 Random Glucose 117 H Serum Osmolality Calcium 8.7 Phosphorus 2.9 Magnesium 1.9 Total Bilirubin 0.4 AST 24 ALT 24 Alkaline Phosphatase 102 Total Protein 5.8 L Albumin 2.9 L Urine Osmolality Ur Random Creatinine Ur Random Sodium 114 Active Medications Acetaminophen (Tylenol -) 650 mg PO Q6H PRN PRN Reason: PAIN LEVEL 1 - 3 Apixaban (Eliquis -) 5 mg PO BID [facility] Last Admin: 11/02/19 11:50 Dose: 5 mg Atorvastatin Calcium (Lipitor -) 10 mg PO HS [facility] Last Admin: 11/01/19 21:21 Dose: 10 mg Diltiazem HCl (Cardizem Cd -) 180 mg PO DAILY [facility] Last Admin: 11/02/19 09:02 Dose: Not Given Docusate Sodium (Colace -) 100 mg PO BID PRN PRN Reason: CONSTIPATION Escitalopram Oxalate (Lexapro -) 20 mg PO DAILY [facility] Last Admin: 11/02/19 09:03 Dose: Not Given Gabapentin (Neurontin -) 300 mg PO TID [facility] Last Admin: 11/02/19 05:44 Dose: Not Given Piperacillin Sod/Tazobactam (Sod 3.375 gm/ Dextrose) 50 mls @ 100 mls/hr IVPB Q8H-IV [facility]; Protocol Last Admin: 11/02/19 09:11 Dose: 100 mls/hr Vancomycin HCl (Vancomycin (Pre-Docked)) 1,000 mg in 250 mls @ 200 mls/hr IVPB Q24H [facility]; Protocol Last Admin: 11/02/19 06:23 Dose: 200 mls/hr Morphine Sulfate (Morphine Sulfate) 2 mg IVPUSH Q4H PRN PRN Reason: PAIN LEVEL 6-10 Non-Formulary Medication (Teriparatide [Forteo]) 0.8 ml SQ DAILY [facility] Oxycodone HCl (Roxicodone -) 5 mg PO Q4H PRN PRN Reason: PAIN LEVEL 1-5 Last Admin: 11/02/19 11:50 Dose: 5 mg Pantoprazole Sodium (Protonix Iv) 40 mg IVPUSH DAILY [facility] Last Admin: 11/02/19 09:12 Dose: 40 mg Prednisone (Deltasone -) 10 mg PO DAILY [facility] Stop: 11/03/19 18:00 Last Admin: 11/02/19 09:03 Dose: Not Given Tramadol HCl (Ultram -) 25 mg PO Q8H PRN PRN Reason: PAIN LEVEL 7 - 10 Last Admin: 11/02/19 08:49 Dose: 25 mg Valsartan (Diovan -) 160 mg PO DAILY [facility] Last Admin: 11/02/19 09:03 Dose: Not Given Ambulatory Orders Simvastatin [Zocor -] 20 mg PO HS 04/26/13 Pantoprazole Sodium [Protonix -] 40 mg PO DAILY 03/06/14 Methotrexate [Mexate -] 7 tab PO Q7D 09/22/17 Teriparatide [Forteo] 0.8 ml SQ DAILY 09/14/19 Apixaban [Eliquis] 5 mg PO BID #60 tablet 09/25/19 Valsartan [Diovan] 160 mg PO DAILY tablet 09/26/19 Silver Sulfadiazine [Silvadene] 85 gm TP DAILY #1 cream..g. 10/16/19 Diltiazem HCl [Cartia Xt] 180 mg PO DAILY 10/31/19 Gabapentin [Neurontin -] 1 cap PO TID 10/31/19 Oxycodone HCl 1 tab PO Q6H PRN 10/31/19 Carbidopa/Levodopa *Cr* 25/100 [Sinemet *Cr* 25/100 -] 1 tab PO TID 11/01/19 Escitalopram Oxalate [Lexapro -] 1 tab PO DAILY 11/01/19 Metoprolol Succinate [Toprol Xl] 1 tab PO HS 11/01/19 Pramipexole Dihydrochloride [Mirapex -] 1 tab PO DAILY 11/01/19 predniSONE [Deltasone -] 2.5 mg PO DAILY 11/01/19 ASSESSMENT/PLAN: 89 y/o female PMH HTN, HLD, DVT (onEliquis), peripheral venous disease (s/p three angioplasty), anemia presents with complaint of LEFT foot pain, sent from Vascular Surgery, was scheduled TMA but cancled 2/2 low Na. Plan for TMA tomorrow 03 Nov 2019. # SIADH - Chronic low Na - Serum osm 265, u osm 589, u sodium 114: consistent with SIADH - Check TSH - Dc IVF - Fluid restrict to 800 cc/day - Consult nephro - Salt tablet 1 gm PO BID # PVD, LEFT 3rd digit necrosis - Still plan for surgery tomorrow - CT: 0.4x0.3 cm pocket of soft tissue air accumulation noted along plantar surface of distal phalynx of 3rd digit, no abscess or osteomyelitis - NPO for surgery today - Vancomycin 1 gm IV QD and Zosyn 3.375 gm IV q8h - Vanc trough before 4th dose - Oxycodone 5 mg PO q4h PRN and morphine 2 gm IV q4h PRN. - Prednisone 10 mg PO before surgery and QD for 2 days # A fib - Hold Eliquis 2 days prior to surgery and resume once post-op hemostasis achieved - Consult cardiology: Given absence of symptoms of acute coronary syndrome, decompensated CHF, obstructive stenotic valve lesions or malignant arrhythmia, there are no absolute CV contraindications against proceeding with left TMA # Grade 2 systolic murmur - Last echo (2016): Severe MR and TR. Ejection Fraction LVEF > or = 40% - EKG: NSR @ 93. IRBBB, LAD similar to previous 08/02/2019 - Consult cardiology: Given absence of symptoms of acute coronary syndrome, decompensated CHF, obstructive stenotic valve lesions or malignant arrhythmia, there are no absolute CV contraindications against proceeding with left TMA # ?Parkinson Disease - Pt reports not have dx of PD but med reconciliation supports recent rx of carbidopa/levodopa and pramipexole as above. - Will clarify with PCP # HTN - Continue home regimen of Metoprolol Succinate 50 mg PO QD, Dltiazem 180 mg PO QD, Valsartan 160 mg PO QD # HLD - Continue home regimen of Simvastatin 20 mg PO HS # F/E/N - PO 800 cc/day - Cont. to monitor - NPO after midnight # DVT prophylaxis - Hold for surgery - Normally on eliquis # Disposition - Med/surg Jordi Bello MD Visit type - Emergency Visit Emergency Visit: No - New Patient This patient is new to me today: No - Critical Care Critical Care patient: No ATTENDING PHYSICIAN STATEMENT I saw and evaluated the patient. I reviewed the resident's note and discussed the case with the resident. I agree with the resident's findings and plan as documented. SUBJECTIVE: OBJECTIVE: ASSESSMENT AND PLAN:
[2019-11-02] MEDS: DOCUSATE SODIUM 100 MG CAPSULE (FP) PO PRN (12:42)
[2019-11-02] MEDS: SODIUM CHLORIDE 1 GM TABLET PO SCH ×2 (13:31→21:43)
[2019-11-02] MEDS: MORPHINE SULFATE 2 MG/ML VIAL IVPUSH PRN (13:32)
--- NOTE | 2019-11-02 15:57 | CONSULT ---
Consult Consult Specialty:: Nephrology Reason for Consultation:: hyponatremia - History of Present Illness Chief Complaint: foot pain History of Present Illness: Pt is an 89 year old female with pmhx of htn, HLD, DVT, anemia, hyponatremia and PVD who presents to the ER with foot pain. She was found to have bilateral ischemic toes. She was also found to be hyponatremic and I was called to evaluate her. She has history of chronic hyponatremia however she is unaware of the etiology. She denies excess water intake however she says that she has not been eating much over the last few weeks. She denies cough or shortness of breath. She denies dysuria or hematuria. - History Source History Provided By: Patient, Medical Record - Past Medical History Cardio/Vascular: Yes: HTN, Hyperlipdemia Gastrointestinal: Yes: GERD Rheumatology: Yes: Rheumatoid Arthritis - Past Surgical History Past Surgical History: Yes: Cataract Removal, Laminectomy - Alcohol/Substance Use Hx Alcohol Use: No History of Substance Use: reports: None - Smoking History Smoking history: Former smoker Have you smoked in the past 12 months: No Aproximately how many cigarettes per day: 0 If you are a former smoker, when did you quit?: 50 years ago - Social History Usual Living Arrangement: Alone () ADL: Independent 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 History of Recent Travel: No Home Medications - Allergies Allergies/Adverse Reactions: Allergies Allergy/AdvReac Type Severity Reaction Status Date / Time No Known Allergies Allergy Verified 09/22/19 07:25 - Home Medications Home Medications: Ambulatory Orders Simvastatin [Zocor -] 20 mg PO HS 04/26/13 Pantoprazole Sodium [Protonix -] 40 mg PO DAILY 03/06/14 Methotrexate [Mexate -] 7 tab PO Q7D 09/22/17 Teriparatide [Forteo] 0.8 ml SQ DAILY 09/14/19 Apixaban [Eliquis] 5 mg PO BID #60 tablet 09/25/19 Valsartan [Diovan] 160 mg PO DAILY tablet 09/26/19 Silver Sulfadiazine [Silvadene] 85 gm TP DAILY #1 cream..g. 10/16/19 Diltiazem HCl [Cartia Xt] 180 mg PO DAILY 10/31/19 Gabapentin [Neurontin -] 1 cap PO TID 10/31/19 Oxycodone HCl 1 tab PO Q6H PRN 10/31/19 Carbidopa/Levodopa *Cr* 25/100 [Sinemet *Cr* 25/100 -] 1 tab PO TID 11/01/19 Escitalopram Oxalate [Lexapro -] 1 tab PO DAILY 11/01/19 Metoprolol Succinate [Toprol Xl] 1 tab PO HS 11/01/19 Pramipexole Dihydrochloride [Mirapex -] 1 tab PO DAILY 11/01/19 predniSONE [Deltasone -] 2.5 mg PO DAILY 11/01/19 Family Medical History Family History: Denies Review of Systems - Review of Systems Constitutional: reports: Malaise Eyes: reports: No Symptoms HENT: reports: No Symptoms Neck: reports: No Symptoms Cardiovascular: denies: Edema Respiratory: denies: Cough, SOB, SOB on Exertion Gastrointestinal: reports: No Symptoms Genitourinary: reports: No Symptoms Breasts: reports: No Symptoms Reported Musculoskeletal: reports: Extremity Pain Integumentary: reports: Erythema, Wound Neurological: reports: No Symptoms Endocrine: reports: No Symptoms Hematology/Lymphatic: reports: No Symptoms Psychiatric: reports: No Symptoms Physical Exam Vital Signs: Vital Signs Temperature 97.3 F L 11/02/19 09:00 Pulse Rate 84 11/02/19 09:00 Respiratory Rate 20 11/02/19 09:00 Blood Pressure 155/82 11/02/19 09:00 O2 Sat by Pulse Oximetry (%) 99 11/01/19 21:00 Constitutional: Yes: Calm Eyes: Yes: Conjunctiva Clear HENT: Yes: Atraumatic Cardiovascular: Yes: S1, S2 Respiratory: Yes: CTA Bilaterally Gastrointestinal: Yes: Soft Renal/: Yes: WNL Musculoskeletal: Yes: WNL Edema: No Neurological: Yes: Oriented Psychiatric: Yes: Oriented Labs: CBC, BMP 11/02/19 08:05 11/02/19 08:05 Laboratory Tests 02/23/12 10/03/12 10/20/12 10:30 10:30 11:55 WBC Sodium 135 L 136 136 Serum Osmolality Urine Osmolality Ur Random Sodium 10/17/16 12/30/16 08/10/17 06:30 18:22 23:27 WBC Sodium 138 140 126 L Serum Osmolality Urine Osmolality Ur Random Sodium 08/11/17 08/12/17 08/14/17 01:51 05:25 05:35 WBC Sodium 126 L 126 L 130 L Serum Osmolality Urine Osmolality Ur Random Sodium 08/16/17 08/22/17 05/25/19 06:25 07:00 14:13 WBC Sodium 132 L 136 134 L Serum Osmolality Urine Osmolality Ur Random Sodium 09/11/19 09/14/19 09/22/19 13:04 07:32 08:28 WBC Sodium 131 L 131 L 133 L Serum Osmolality Urine Osmolality Ur Random Sodium 09/25/19 10/31/19 10/31/19 12:22 18:00 18:00 WBC 14.3 H Sodium 133 L 128 L Serum Osmolality Urine Osmolality Ur Random Sodium 11/01/19 11/01/19 11/01/19 07:48 07:48 16:25 WBC 10.0 Sodium 129 L Serum Osmolality 265 L Urine Osmolality Ur Random Sodium 11/01/19 11/01/19 11/01/19 17:30 17:30 17:30 WBC Sodium Serum Osmolality Urine Osmolality 589 Ur Random Sodium 114 114 11/02/19 11/02/19 08:05 08:05 WBC 14.7 H Sodium 128 L Serum Osmolality Urine Osmolality Ur Random Sodium Imaging - Results Chest X-ray: Report Reviewed Problem List - Problems (1) Hyponatremia Code(s): E87.1 - HYPO-OSMOLALITY AND HYPONATREMIA (2) Ischemia Code(s): I99.8 - OTHER DISORDER OF CIRCULATORY SYSTEM (3) PVD (peripheral vascular disease) Code(s): I73.9 - PERIPHERAL VASCULAR DISEASE, UNSPECIFIED Assessment/Plan Current Medications Generic Name Dose Route Start Last Admin Trade Name Freq PRN Reason Stop Dose Admin Acetaminophen 650 mg 11/02/19 11:17 Tylenol - PO Q6H PRN PAIN LEVEL 1 - 3 Apixaban 5 mg 11/02/19 11:00 11/02/19 11:50 Eliquis - PO 5 mg BID [facility] Administration Atorvastatin Calcium 10 mg 11/01/19 22:00 11/01/19 21:21 Lipitor - PO 10 mg HS [facility] Administration Diltiazem HCl 180 mg 11/01/19 10:00 11/02/19 09:02 Cardizem Cd - PO Not Given DAILY [facility] Docusate Sodium 100 mg 11/01/19 14:04 11/02/19 12:42 Colace - PO 100 mg BID PRN Administration CONSTIPATION Escitalopram Oxalate 20 mg 11/02/19 10:00 11/02/19 09:03 Lexapro - PO Not Given DAILY [facility] Gabapentin 300 mg 10/31/19 22:00 11/02/19 13:31 Neurontin - PO 300 mg TID [facility] Administration Piperacillin Sod/Tazobactam 50 mls @ 100 mls/hr 11/01/19 18:00 11/02/19 09:11 Sod 3.375 gm/ Dextrose IVPB 100 mls/hr Q8H-IV [facility] Administration Protocol Vancomycin HCl 1,000 mg in 250 mls @ 200 mls/hr 11/02/19 06:00 11/02/19 06:23 Vancomycin (Pre-Docked) IVPB 200 mls/hr Q24H [facility] Administration Protocol Morphine Sulfate 2 mg 11/01/19 14:05 11/02/19 13:32 Morphine Sulfate IVPUSH 2 mg Q4H PRN Administration PAIN LEVEL 6-10 Non-Formulary Medication 0.8 ml 11/02/19 10:00 Teriparatide [Forteo] SQ DAILY [facility] Oxycodone HCl 5 mg 11/01/19 14:04 11/02/19 11:50 Roxicodone - PO 5 mg Q4H PRN Administration PAIN LEVEL 1-5 Pantoprazole Sodium 40 mg 11/01/19 10:00 11/02/19 09:12 Protonix Iv IVPUSH 40 mg DAILY [facility] Administration Prednisone 10 mg 11/02/19 10:00 11/02/19 09:03 Deltasone - PO 11/03/19 18:00 Not Given DAILY [facility] Sodium Chloride 1 gm 11/02/19 12:45 11/02/19 13:31 Sodium Chloride Tablet - PO 1 gm BID [facility] Administration Tramadol HCl 25 mg 10/31/19 19:07 11/02/19 08:49 Ultram - PO 25 mg Q8H PRN Administration PAIN LEVEL 7 - 10 Valsartan 160 mg 11/01/19 10:00 11/02/19 09:03 Diovan - PO Not Given DAILY [facility] Impression 1. hyponatremia 2. PVD 3. HTN 4. HLD 5. DVT 6. anemia Plan - hypoosmolar hyponatremia with high urine osm and high urine sodium in a euvolemic patient is suggestive of an siadh picture - sodium chronically low - restrict free water - start salt tabs - pt was given a trial of saline with no response - avoid hypotonic fluids intra-operatively - monitor volume status - discussed with medical team
[2019-11-02 15:59] VITALS: BMI 18.9
[2019-11-02] MEDS ORDERED: SODIUM CHLORIDE 1 GM TABLET PO ONE (16:03)
[2019-11-02] MEDS: ATORVASTATIN CA 10 MG TABLET (FP) PO SCH (21:12)
[2019-11-03] MEDS: PIPERACILLIN/TAZOB 3.375 GM 3.375 GM in DEXTROSE 5%-WATER - 50 ML IVPB SCH ×5 (02:05→21:32)
[2019-11-03] MEDS ORDERED: DEXTROSE 5%-WATER - 50 ML IVPB ONE ×3 (02:28→21:17)
[2019-11-03] MEDS ORDERED: PIPERACILLIN/TAZOBACTAM 3.375 GM VIAL IVPB ONE ×3 (02:28→21:17)
[2019-11-03] MEDS: oxyCODONE HCL 5 MG TABLET PO PRN ×3 (04:36→13:38)
[2019-11-03] MEDS: VANCOMYCIN 1 GRAM (PRE-DOCKED) 1,000 MG/250 ML BAG IVPB SCH (05:42)
[2019-11-03] MEDS: GABAPENTIN 300 MG CAPSULE (FP) PO SCH ×3 (05:43→21:32)
[2019-11-03] MEDS: MORPHINE SULFATE 2 MG/ML VIAL IVPUSH PRN ×2 (06:48→10:47)
[2019-11-03] MEDS ORDERED: VANCOMYCIN 1,000 MG in DEXTROSE 5%-WATER - 250 ML IVPB SCH (08:00)
[2019-11-03 08:30] LABS: ALBUMIN 2.5 g/dl (3.4-5.0); BILIRUBIN,TOTAL 0.4 mg/dL (0.2-1); BLOOD UREA NITROGEN 12.9 mg/dL (7-18); CALCIUM 8.3 mg/dL (8.5-10.1); CREATININE 0.4 mg/dL (0.55-1.3); POTASSIUM 3.9 mmol/L (3.5-5.1); TOT PROT 5.1 g/dl (6.4-8.2)
[2019-11-03] MEDS: PANTOPRAZOLE SODIUM 40 MG VIAL IVPUSH SCH ×2 (08:55→10:47)
[2019-11-03] MEDS: APIXABAN 5 MG TABLET PO SCH ×2 (08:57→11:42)
[2019-11-03] MEDS: DOCUSATE SODIUM 100 MG CAPSULE (FP) PO PRN (08:57)
[2019-11-03] MEDS: ESCITALOPRAM OXALATE 10 MG TABLET (FP) PO SCH ×2 (08:57→10:47)
[2019-11-03] MEDS: VALSARTAN 160 MG TABLET (UD) PO SCH ×2 (08:57→10:47)
[2019-11-03] MEDS: predniSONE 5 MG TABLET (UD) PO SCH ×2 (08:58→10:47)
[2019-11-03] MEDS: SODIUM CHLORIDE 1 GM TABLET PO SCH ×2 (09:01→21:32)
--- NOTE | 2019-11-03 09:50 | PN ---
Progress Note, Physician History of Present Illness: Awaiting left TMA postponed due to hyponatremia. - Current Medication List Current Medications: Active Medications Acetaminophen (Tylenol -) 650 mg PO Q6H PRN PRN Reason: PAIN LEVEL 1 - 3 Apixaban (Eliquis -) 5 mg PO BID [facility] Last Admin: 11/03/19 08:57 Dose: 5 mg Atorvastatin Calcium (Lipitor -) 10 mg PO HS [facility] Last Admin: 11/02/19 21:12 Dose: 10 mg Diltiazem HCl (Cardizem Cd -) 180 mg PO DAILY [facility] Last Admin: 11/03/19 08:57 Dose: 180 mg Docusate Sodium (Colace -) 100 mg PO BID PRN PRN Reason: CONSTIPATION Last Admin: 11/03/19 08:57 Dose: 100 mg Escitalopram Oxalate (Lexapro -) 20 mg PO DAILY [facility] Last Admin: 11/03/19 08:57 Dose: 20 mg Gabapentin (Neurontin -) 300 mg PO TID [facility] Last Admin: 11/03/19 05:43 Dose: Not Given Piperacillin Sod/Tazobactam (Sod 3.375 gm/ Dextrose) 50 mls @ 100 mls/hr IVPB Q8H-IV [facility]; Protocol Last Admin: 11/03/19 08:55 Dose: 100 mls/hr Vancomycin HCl (Vancomycin (Pre-Docked)) 1,000 mg in 250 mls @ 200 mls/hr IVPB Q24H [facility]; Protocol Last Admin: 11/03/19 05:42 Dose: 200 mls/hr Morphine Sulfate (Morphine Sulfate) 2 mg IVPUSH Q4H PRN PRN Reason: PAIN LEVEL 6-10 Last Admin: 11/03/19 06:48 Dose: 2 mg Non-Formulary Medication (Teriparatide [Forteo]) 0.8 ml SQ DAILY [facility] Oxycodone HCl (Roxicodone -) 5 mg PO Q4H PRN PRN Reason: PAIN LEVEL 1-5 Last Admin: 11/03/19 08:56 Dose: 5 mg Pantoprazole Sodium (Protonix Iv) 40 mg IVPUSH DAILY [facility] Last Admin: 11/03/19 08:55 Dose: 40 mg Prednisone (Deltasone -) 10 mg PO DAILY [facility] Stop: 11/03/19 18:00 Last Admin: 11/03/19 08:58 Dose: 10 mg Sodium Chloride (Sodium Chloride Tablet -) 1 gm PO BID [facility] Last Admin: 11/03/19 09:01 Dose: 1 gm Tramadol HCl (Ultram -) 25 mg PO Q8H PRN PRN Reason: PAIN LEVEL 7 - 10 Last Admin: 11/02/19 08:49 Dose: 25 mg Valsartan (Diovan -) 160 mg PO DAILY [facility] Last Admin: 11/03/19 08:57 Dose: 160 mg - Objective Vital Signs: Vital Signs Temperature 97.8 F 11/03/19 08:54 Pulse Rate 99 H 11/03/19 08:54 Respiratory Rate 18 11/03/19 08:54 Blood Pressure 138/71 11/03/19 08:54 O2 Sat by Pulse Oximetry (%) 95 11/02/19 09:00 Constitutional: Yes: No Distress, Calm, Thin Neck: Yes: Supple Cardiovascular: Yes: Regular Rate and Rhythm Respiratory: Yes: Regular, CTA Bilaterally Gastrointestinal: Yes: Normal Bowel Sounds, Soft Edema: No Wound/Incision: Yes: Dressing Dry and Intact Labs: CBC, BMP 11/02/19 08:05 11/03/19 07:48 INR, PTT INR 1.44 (0.83-1.09) H 11/01/19 07:48 Problem List - Problems (1) PVD (peripheral vascular disease) Code(s): I73.9 - PERIPHERAL VASCULAR DISEASE, UNSPECIFIED (2) Rheumatoid arthritis Code(s): M06.9 - RHEUMATOID ARTHRITIS, UNSPECIFIED Qualifiers: Rheumatoid arthritis location: unspecified site (3) HTN (hypertension) Code(s): I10 - ESSENTIAL (PRIMARY) HYPERTENSION Qualifiers: Hypertension type: essential hypertension Qualified Code(s): I10 - Essential (primary) hypertension (4) Ischemic pain of left foot Code(s): M79.672 - PAIN IN LEFT FOOT; I99.9 - UNSPECIFIED DISORDER OF CIRCULATORY SYSTEM (5) Paroxysmal atrial fibrillation Code(s): I48.0 - PAROXYSMAL ATRIAL FIBRILLATION (6) Type 2 diabetes mellitus with foot ulcer Code(s): E11.621 - TYPE 2 DIABETES MELLITUS WITH FOOT ULCER; L97.509 - NON- PRESSURE CHRONIC ULCER OTH PRT UNSP FOOT W UNSP SEVERITY Qualifiers: Diabetes mellitus emt intermediate insulin use: without detention use Qualified Code(s): E11.621 - Type 2 diabetes mellitus with foot ulcer; L97.509 - Non- pressure chronic ulcer of other part of unspecified foot with unspecified severity Assessment/Plan 11/01/2019 Echo: Normal LV and RV size and fxn, mod-severe MR, severe TR RVSP 40 -50 mmHg, 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 Pre-op CV evaluation prior to left TMA 2. PAD s/p [employer]IST with bilateral toe necrosis 3. PAF->SR on Eliquis 4. DVT 5. HTN 6. Hyperlipidemia 7. Anemia 8. Rheumatoid arthritis 9. Hyponatremia suspect SIADH P:1, Given absence of symptoms of acute coronary syndrome, decompensated CHF, obstructive stenotic valve lesions or malignant arrhythmia, there are no absolute CV contraindications against proceeding with left TMA 2. Continue empiric abx course 3. Continue Eliquis 2.5 bid periop per vascular surgery 4. Continue losartan 100 qd, Toprol XL 50 qd, Zocor 20 qhs, Cardizem CD 180 qd, Diovan 160 qd 5. Added NaCl, free water restrict
--- NOTE | 2019-11-03 10:59 | PN ---
Progress Note (short form) - Note Progress Note: awaiting surgery Vital Signs Period Temp Pulse Resp BP Sys/Ying Pulse Ox Last 24 Hr 97.4 F-97.9 F 85-103 18-20 118-149/59-71 cor-rrr lungs clear abd soft,nt dressings intact CBC, BMP 11/02/19 08:05 11/03/19 07:48 imp/reccd Severe ischemia of the feet- left greater then right- continue vancomycin and zosyn, plan for surgery when medically cleared check vancomycin trough in am RA Problem List - Problems (1) PVD (peripheral vascular disease) Code(s): I73.9 - PERIPHERAL VASCULAR DISEASE, UNSPECIFIED (2) Rheumatoid arthritis Code(s): M06.9 - RHEUMATOID ARTHRITIS, UNSPECIFIED Qualifiers: Rheumatoid arthritis location: unspecified site
[2019-11-03] MEDS ORDERED: TERIPARATIDE SQ SCH (14:15)
--- NOTE | 2019-11-03 14:40 | PN ---
Progress Note, Physician History of Present Illness: Pt seen and examine at bedside. She is awake and alert. She denies shortness of breath. - Current Medication List Current Medications: Active Medications Acetaminophen (Tylenol -) 650 mg PO Q6H PRN PRN Reason: PAIN LEVEL 1 - 3 Apixaban (Eliquis -) 2.5 mg PO BID [facility] Atorvastatin Calcium (Lipitor -) 10 mg PO HS [facility] Last Admin: 11/02/19 21:12 Dose: 10 mg Diltiazem HCl (Cardizem Cd -) 180 mg PO DAILY [facility] Last Admin: 11/03/19 10:47 Dose: Not Given Docusate Sodium (Colace -) 100 mg PO BID PRN PRN Reason: CONSTIPATION Last Admin: 11/03/19 08:57 Dose: 100 mg Escitalopram Oxalate (Lexapro -) 20 mg PO DAILY [facility] Last Admin: 11/03/19 10:47 Dose: Not Given Gabapentin (Neurontin -) 300 mg PO TID [facility] Last Admin: 11/03/19 13:38 Dose: 300 mg Piperacillin Sod/Tazobactam (Sod 3.375 gm/ Dextrose) 50 mls @ 100 mls/hr IVPB Q8H-IV [facility]; Protocol Last Admin: 11/03/19 10:47 Dose: Not Given Vancomycin HCl (Vancomycin (Pre-Docked)) 1,000 mg in 250 mls @ 200 mls/hr IVPB Q24H [facility]; Protocol Last Admin: 11/03/19 05:42 Dose: 200 mls/hr Morphine Sulfate (Morphine Sulfate) 2 mg IVPUSH Q4H PRN PRN Reason: PAIN LEVEL 6-10 Last Admin: 11/03/19 10:47 Dose: 2 mg Non-Formulary Medication (Teriparatide [Forteo]) 0.8 ml SQ [facility] Oxycodone HCl (Roxicodone -) 5 mg PO Q4H PRN PRN Reason: PAIN LEVEL 1-5 Last Admin: 11/03/19 13:38 Dose: 5 mg Pantoprazole Sodium (Protonix Iv) 40 mg IVPUSH DAILY [facility] Last Admin: 11/03/19 10:47 Dose: Not Given Prednisone (Deltasone -) 10 mg PO DAILY [facility] Stop: 11/03/19 18:00 Last Admin: 11/03/19 10:47 Dose: Not Given Sodium Chloride (Sodium Chloride Tablet -) 1 gm PO BID [facility] Last Admin: 11/03/19 09:01 Dose: 1 gm Tramadol HCl (Ultram -) 25 mg PO Q8H PRN PRN Reason: PAIN LEVEL 7 - 10 Last Admin: 11/02/19 08:49 Dose: 25 mg Valsartan (Diovan -) 160 mg PO DAILY [facility] Last Admin: 11/03/19 10:47 Dose: Not Given - Objective Vital Signs: Vital Signs Temperature 97.8 F 11/03/19 08:54 Pulse Rate 99 H 11/03/19 08:54 Respiratory Rate 18 11/03/19 08:54 Blood Pressure 138/71 11/03/19 08:54 O2 Sat by Pulse Oximetry (%) 95 11/02/19 09:00 Constitutional: Yes: Calm Eyes: Yes: Conjunctiva Clear HENT: Yes: Atraumatic Neck: Yes: Supple Cardiovascular: Yes: S1, S2 Respiratory: Yes: CTA Bilaterally Gastrointestinal: Yes: Soft Genitourinary: Yes: WNL Musculoskeletal: Yes: WNL Edema: No Neurological: Yes: Oriented Labs: CBC, BMP 11/02/19 08:05 11/03/19 07:48 INR, PTT INR 1.44 (0.83-1.09) H 11/01/19 07:48 Problem List - Problems (1) Hyponatremia Code(s): E87.1 - HYPO-OSMOLALITY AND HYPONATREMIA (2) Ischemia Code(s): I99.8 - OTHER DISORDER OF CIRCULATORY SYSTEM (3) PVD (peripheral vascular disease) Code(s): I73.9 - PERIPHERAL VASCULAR DISEASE, UNSPECIFIED Assessment/Plan Current Medications Generic Name Dose Route Start Last Admin Trade Name Freq PRN Reason Stop Dose Admin Acetaminophen 650 mg 11/02/19 11:17 Tylenol - PO Q6H PRN PAIN LEVEL 1 - 3 Apixaban 2.5 mg 11/03/19 22:00 Eliquis - PO BID [facility] Atorvastatin Calcium 10 mg 11/01/19 22:00 11/02/19 21:12 Lipitor - PO 10 mg HS [facility] Administration Diltiazem HCl 180 mg 11/01/19 10:00 11/03/19 10:47 Cardizem Cd - PO Not Given DAILY [facility] Docusate Sodium 100 mg 11/01/19 14:04 11/03/19 08:57 Colace - PO 100 mg BID PRN Administration CONSTIPATION Escitalopram Oxalate 20 mg 11/02/19 10:00 11/03/19 10:47 Lexapro - PO Not Given DAILY [facility] Gabapentin 300 mg 10/31/19 22:00 11/03/19 13:38 Neurontin - PO 300 mg TID [facility] Administration Piperacillin Sod/Tazobactam 50 mls @ 100 mls/hr 11/01/19 18:00 11/03/19 10:47 Sod 3.375 gm/ Dextrose IVPB Not Given Q8H-IV [facility] Protocol Vancomycin HCl 1,000 mg in 250 mls @ 200 mls/hr 11/02/19 06:00 11/03/19 05:42 Vancomycin (Pre-Docked) IVPB 200 mls/hr Q24H [facility] Administration Protocol Morphine Sulfate 2 mg 11/01/19 14:05 11/03/19 10:47 Morphine Sulfate IVPUSH 2 mg Q4H PRN Administration PAIN LEVEL 6-10 Non-Formulary Medication 0.8 ml 11/03/19 14:15 Teriparatide [Forteo] SQ [facility] Oxycodone HCl 5 mg 11/01/19 14:04 11/03/19 13:38 Roxicodone - PO 5 mg Q4H PRN Administration PAIN LEVEL 1-5 Pantoprazole Sodium 40 mg 11/01/19 10:00 11/03/19 10:47 Protonix Iv IVPUSH Not Given DAILY [facility] Prednisone 10 mg 11/02/19 10:00 11/03/19 10:47 Deltasone - PO 11/03/19 18:00 Not Given DAILY [facility] Sodium Chloride 1 gm 11/02/19 12:45 11/03/19 09:01 Sodium Chloride Tablet - PO 1 gm BID [facility] Administration Tramadol HCl 25 mg 10/31/19 19:07 11/02/19 08:49 Ultram - PO 25 mg Q8H PRN Administration PAIN LEVEL 7 - 10 Valsartan 160 mg 11/01/19 10:00 11/03/19 10:47 Diovan - PO Not Given DAILY [facility] Impression 1. hyponatremia 2. PVD 3. HTN 4. HLD 5. DVT 6. anemia Plan - sodium improving - cont salt tabs - avoid hypotonic fluids - ct chest and pelvis once stable, can do as outpt - ct head once stable - monitor volume status - restrict free water
--- NOTE | 2019-11-03 15:18 | PN ---
Physical Exam: SUBJECTIVE: Patient seen and examined at bedside. Her pain is better controlled. No complaints overnight and she has been following water restricted diet. She denies KEANE, vision changes, nausea, vomiting, low energy, drowsiness, fatigue, muscle weakness, numbness/tingling or any seizures. Plan for surgery today at 16:45. OBJECTIVE: Vital Signs Temp Pulse Resp BP Pulse Ox 97.8 F 99 H 18 138/71 95 11/03/19 08:54 11/03/19 08:54 11/03/19 08:54 11/03/19 08:54 11/02/19 09:00 HEAD: NCAT EYES: LEONIDAS, EOMI, conjunctiva clear. ENT: Ears normal, nares patent, oropharynx clear without exudates. Moist mucous membranes. NECK: Normal range of motion, supple without lymphadenopathy, JVD, or masses. LUNGS: CTAB. No wheezes, and no crackles. No accessory muscle use. HEART: RRR s1 s2. 2/6 systolic murmur at LEFT sternal border ABDOMEN: Soft, BS present in all 4 quadrants, non-distended, no JVD, MUSCULOSKELETAL: Pectus carinatum. No bony deformities or tenderness. No CVA tenderness. UPPER EXTREMITIES: 2+ pulses, warm, well-perfused. No cyanosis. No clubbing. No peripheral edema. LOWER EXTREMITIES: LEFT digit 1 and 2 errythematous now purple/darker than yesterday, 3rd digit black and necrotic. RIGHT foot first and second digit errythematous, also purple and worsening. Covered LEFT pressure ulcer at heel 1x1cm. 1+ pulses, warm. No calf tenderness. No peripheral edema. NEUROLOGICAL: No focal deficits. Cranial nerves II-XII intact. Normal speech. Gait not appreciated. PSYCHIATRIC: Cooperative. Good eye contact. Appropriate mood and affect. SKIN: Warm, dry, normal turgor, no rashes or lesions noted, normal capillary refill Laboratory Results - last 24 hr 11/03/19 07:48 Sodium 131 L Potassium 3.9 Chloride 96 L Carbon Dioxide 30 Anion Gap 5 L BUN 12.9 Creatinine 0.4 L Est GFR (CKD-EPI)AfAm 107.03 Est GFR (CKD-EPI)NonAf 92.34 Random Glucose 90 Calcium 8.3 L Total Bilirubin 0.4 AST 18 ALT 19 Alkaline Phosphatase 80 Total Protein 5.1 L Albumin 2.5 L Active Medications Acetaminophen (Tylenol -) 650 mg PO Q6H PRN PRN Reason: PAIN LEVEL 1 - 3 Apixaban (Eliquis -) 2.5 mg PO BID [facility] Atorvastatin Calcium (Lipitor -) 10 mg PO HS [facility] Last Admin: 11/02/19 21:12 Dose: 10 mg Diltiazem HCl (Cardizem Cd -) 180 mg PO DAILY [facility] Last Admin: 11/03/19 10:47 Dose: Not Given Docusate Sodium (Colace -) 100 mg PO BID PRN PRN Reason: CONSTIPATION Last Admin: 11/03/19 08:57 Dose: 100 mg Escitalopram Oxalate (Lexapro -) 20 mg PO DAILY [facility] Last Admin: 11/03/19 10:47 Dose: Not Given Fentanyl (Sublimaze Injection -) 25 mcg IVPUSH Q5M PRN PRN Reason: PAIN-PACU ORDER X 4 DOSES ONLY Gabapentin (Neurontin -) 300 mg PO TID [facility] Last Admin: 11/03/19 13:38 Dose: 300 mg Piperacillin Sod/Tazobactam (Sod 3.375 gm/ Dextrose) 50 mls @ 100 mls/hr IVPB Q8H-IV [facility]; Protocol Last Admin: 11/03/19 10:47 Dose: Not Given Vancomycin HCl (Vancomycin (Pre-Docked)) 1,000 mg in 250 mls @ 200 mls/hr IVPB Q24H [facility]; Protocol Last Admin: 11/03/19 05:42 Dose: 200 mls/hr Morphine Sulfate (Morphine Sulfate) 2 mg IVPUSH Q4H PRN PRN Reason: PAIN LEVEL 6-10 Last Admin: 11/03/19 10:47 Dose: 2 mg Non-Formulary Medication (Teriparatide [Forteo]) 0.8 ml SQ [facility]BK [facility] Ondansetron HCl (Zofran Injection) 4 mg IVPUSH Q6H PRN PRN Reason: NAUSEA AND/OR VOMITING Oxycodone HCl (Roxicodone -) 5 mg PO Q4H PRN PRN Reason: PAIN LEVEL 1-5 Last Admin: 11/03/19 13:38 Dose: 5 mg Pantoprazole Sodium (Protonix Iv) 40 mg IVPUSH DAILY [facility] Last Admin: 11/03/19 10:47 Dose: Not Given Prednisone (Deltasone -) 10 mg PO DAILY [facility] Stop: 11/03/19 18:00 Last Admin: 11/03/19 10:47 Dose: Not Given Sodium Chloride (Sodium Chloride Tablet -) 1 gm PO BID [facility] Last Admin: 11/03/19 09:01 Dose: 1 gm Tramadol HCl (Ultram -) 25 mg PO Q8H PRN PRN Reason: PAIN LEVEL 7 - 10 Last Admin: 11/02/19 08:49 Dose: 25 mg Valsartan (Diovan -) 160 mg PO DAILY [facility] Last Admin: 11/03/19 10:47 Dose: Not Given Ambulatory Orders Simvastatin [Zocor -] 20 mg PO HS 04/26/13 Pantoprazole Sodium [Protonix -] 40 mg PO DAILY 03/06/14 Methotrexate [Mexate -] 7 tab PO Q7D 09/22/17 Teriparatide [Forteo] 0.8 ml SQ DAILY 09/14/19 Apixaban [Eliquis] 5 mg PO BID #60 tablet 09/25/19 Valsartan [Diovan] 160 mg PO DAILY tablet 09/26/19 Silver Sulfadiazine [Silvadene] 85 gm TP DAILY #1 cream..g. 10/16/19 Diltiazem HCl [Cartia Xt] 180 mg PO DAILY 10/31/19 Gabapentin [Neurontin -] 1 cap PO TID 10/31/19 Oxycodone HCl 1 tab PO Q6H PRN 10/31/19 Carbidopa/Levodopa *Cr* 25/100 [Sinemet *Cr* 25/100 -] 1 tab PO TID 11/01/19 Escitalopram Oxalate [Lexapro -] 1 tab PO DAILY 11/01/19 Metoprolol Succinate [Toprol Xl] 1 tab PO HS 11/01/19 Pramipexole Dihydrochloride [Mirapex -] 1 tab PO DAILY 11/01/19 predniSONE [Deltasone -] 2.5 mg PO DAILY 11/01/19 ASSESSMENT/PLAN: 89 y/o female PMH HTN, HLD, DVT (onEliquis), peripheral venous disease (s/p three angioplasty), anemia presents with complaint of LEFT foot pain, sent from Vascular Surgery, was scheduled TMA but cancled 2/2 low Na. Plan for TMA this evening 03 Nov 2019 at 16:45. # SIADH - Chronic low Na - Serum osm 265, u osm 589, u sodium 114: consistent with SIADH - Check TSH - Dc IVF - Fluid restrict to 800 cc/day - Consult nephro - Salt tablet 1 gm PO BID - CT chest and pelvis once stable, can do as outpt - CT head once stable # PVD, LEFT 3rd digit necrosis - Still plan for surgery tomorrow - CT: 0.4x0.3 cm pocket of soft tissue air accumulation noted along plantar surface of distal phalynx of 3rd digit, no abscess or osteomyelitis - NPO for surgery today - Vancomycin 1 gm IV QD and Zosyn 3.375 gm IV q8h *F/U vanc trough* - Vanc trough before 4th dose - Oxycodone 5 mg PO q4h PRN and morphine 2 gm IV q4h PRN. - Prednisone 10 mg PO before surgery and QD for 2 days - Eliquis 2.5 po bid periop per vascular surgery # A fib - Eliquis 2.5 bid periop per vascular surgery - Consult cardiology: Given absence of symptoms of acute coronary syndrome, decompensated CHF, obstructive stenotic valve lesions or malignant arrhythmia, there are no absolute CV contraindications against proceeding with left TMA # Grade 2 systolic murmur - Last echo (2016): Severe MR and TR. Ejection Fraction LVEF > or = 40% - EKG: NSR @ 93. IRBBB, LAD similar to previous 08/02/2019 - Consult cardiology: Given absence of symptoms of acute coronary syndrome, decompensated CHF, obstructive stenotic valve lesions or malignant arrhythmia, there are no absolute CV contraindications against proceeding with left TMA # ?Parkinson Disease - Pt reports not have dx of PD but med reconciliation supports recent rx of carbidopa/levodopa and pramipexole as above. - Will clarify with PCP # HTN - Continue home regimen of Metoprolol Succinate 50 mg PO QD, Dltiazem 180 mg PO QD, Valsartan 160 mg PO QD # HLD - Continue home regimen of Simvastatin 20 mg PO HS # F/E/N - PO 800 cc/day - Cont. to monitor - NPO after midnight # DVT prophylaxis - Eliquis # Disposition - Med/surg Jordi Bello MD Visit type - Emergency Visit Emergency Visit: No - New Patient This patient is new to me today: No - Critical Care Critical Care patient: No ATTENDING PHYSICIAN STATEMENT I saw and evaluated the patient. I reviewed the resident's note and discussed the case with the resident. I agree with the resident's findings and plan as documented. SUBJECTIVE: OBJECTIVE: ASSESSMENT AND PLAN:
[2019-11-03] MEDS ORDERED: ONDANSETRON 4 MG/2 ML VIAL IVPUSH PRN ×2 (15:27→20:24)
[2019-11-03] MEDS ORDERED: MIDAZOLAM HCL 2 MG/2 ML SINGLE DOSE VIAL ONE (16:10)
[2019-11-03] MEDS ORDERED: LIDOCAINE HCL 2% (20ML MULTI-DOSE VIAL) ONE (16:43)
[2019-11-03] MEDS ORDERED: PROPOFOL 20 ML ONE (16:43)
[2019-11-03] MEDS ORDERED: SUCCINYLCHOLINE CHLORIDE 200 MG/10 ML SYRINGE ONE (16:48)
[2019-11-03] MEDS ORDERED: EPHEDRINE SULFATE/0.9% NACL/PF 50 MG/10 ML SYRINGE NR ONE (17:01)
[2019-11-03] MEDS ORDERED: LIDOCAINE HCL 2% (50ML VIAL) INF ONE (17:28)
[2019-11-03] MEDS ORDERED: DEXAMETHASONE SOD PHOSPHATE 4 MG/1 ML VIAL ONE (17:40)
--- NOTE | 2019-11-03 17:48 | OP ---
Operative Note - Note: Operative Date: 11/03/18 Pre-Operative Diagnosis: Left forefoot gangrene Operation: Left TMA Findings: see dictaiton Post-Operative Diagnosis: Same as Pre-op Surgeon: Sharan Juárez Business Representative: Moose Goodwin Anesthesia: General, Local Specimens Removed: left forefoot Estimated Blood Loss (mls): 15 Operative Report Dictated: No
[2019-11-03] MEDS ORDERED: morphine SULFATE 4 MG/ML VIAL IVPUSH PRN (18:49)
--- NOTE | 2019-11-03 19:50 | PN ---
Teaching Attending Note Name of Resident: Jordi Bello ATTENDING PHYSICIAN STATEMENT I saw and evaluated the patient. I reviewed the resident's note and discussed the case with the resident. I agree with the resident's findings and plan as documented. SUBJECTIVE: seen in am No fever or chills. No KEANE . pain in feet. OBJECTIVE: NAD, awake, alert, cooperative. CV: RRR, 3/6 SM at [facility], [place], and RUSB. No radiation to carotids or axilla. Lungs: CTAB Abd: soft, NT, ND , NL BS. Ext: no edema on legs. feet wrapped in a clean dressing. ASSESSMENT AND PLAN: 89 y/o lady with h/o PVD, HTN, remote DVT, HLP, esophageal ulcer, IBS, paroxysmal AF,s/p angioplasty, and anemia who presented after being sent bt Dr. Goodwin for TMT amputation. 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 - cont Abx vanco and zosyn - vanco trough -TMA today - pain control with morphine and oxy 2- h/o HTN, paroxysmal A fib: - cont cardizem, metoprolol, - cont eliquis . dose decreased per weight and age 3- Hypotonic Hyponatremia: due to SIADH. - cont salt tab and fluid restriction 4- H/o DVT: many years ago per patient - cont eliquis 5- cont predniosne. give 10 tomorrow . then resume her home dose of 2.5 family is not sure of indication of predniosne and MTX
[2019-11-03] MEDS ORDERED: DOCUSATE SODIUM 100 MG CAPSULE (FP) PO PRN (20:24)
[2019-11-03] MEDS: ATORVASTATIN CA 10 MG TABLET (FP) PO SCH (21:32)
[2019-11-03] MEDS: APIXABAN 2.5 MG TABLET PO SCH (21:33)
[2019-11-03] MEDS ORDERED: APIXABAN 5 MG TABLET PO SCH (22:00)
[2019-11-03] MEDS ORDERED: APIXABAN 2.5 MG TABLET PO SCH (22:00)
[2019-11-04] MEDS ORDERED: DEXTROSE 5%-WATER - 50 ML IVPB ONE ×3 (01:08→17:11)
[2019-11-04] MEDS ORDERED: PIPERACILLIN/TAZOBACTAM 3.375 GM VIAL IVPB ONE ×3 (01:08→17:11)
[2019-11-04] MEDS: oxyCODONE HCL 5 MG TABLET PO PRN ×4 (01:44→21:21)
[2019-11-04] MEDS ORDERED: PIPERACILLIN/TAZOB 3.375 GM 3.375 GM in DEXTROSE 5%-WATER - 50 ML IVPB SCH (02:00)
[2019-11-04] MEDS: PIPERACILLIN/TAZOB 3.375 GM 3.375 GM in DEXTROSE 5%-WATER - 50 ML IVPB SCH ×3 (02:54→17:18)
[2019-11-04] MEDS: GABAPENTIN 300 MG CAPSULE (FP) PO SCH ×3 (05:37→21:23)
[2019-11-04] MEDS: VANCOMYCIN 1 GRAM (PRE-DOCKED) 1,000 MG/250 ML BAG IVPB SCH (06:56)
[2019-11-04] MEDS: TERIPARATIDE SQ SCH (06:57)
[2019-11-04 07:38] LABS: HEMATOCRIT 31.6 % (32.4-45.2); HEMOGLOBIN 10.4 GM/dL (10.7-15.3); MCH 30.2 pg (25.7-33.7); MCHC 32.8 g/dl (32.0-36.0); MEAN PLT VOLUME 6.7 fl (7.5-11.1); PLATELET COUNT 397 K/MM3 (134-434); RBC 3.44 M/mm3 (3.60-5.2); RDW 15.9 % (11.6-15.6); WHITE BLOOD COUNT 11.6 K/mm3 (4.0-10.0)
[2019-11-04 08:14] LABS: ALBUMIN 2.4 g/dl (3.4-5.0); BILIRUBIN,TOTAL 0.4 mg/dL (0.2-1); BLOOD UREA NITROGEN 15.3 mg/dL (7-18); CALCIUM 8.5 mg/dL (8.5-10.1); CREATININE 0.4 mg/dL (0.55-1.3); PHOSPHOROUS 2.5 mg/dL (2.5-4.9); POTASSIUM 4.4 mmol/L (3.5-5.1); TOT PROT 5.2 g/dl (6.4-8.2)
[2019-11-04] MEDS: ESCITALOPRAM OXALATE 10 MG TABLET (FP) PO SCH (09:49)
[2019-11-04] MEDS: PANTOPRAZOLE 40 MG TABLET (FP) PO SCH (09:49)
[2019-11-04] MEDS: VALSARTAN 160 MG TABLET (UD) PO SCH (09:49)
[2019-11-04] MEDS: APIXABAN 2.5 MG TABLET PO SCH ×2 (09:49→21:23)
[2019-11-04] MEDS: SODIUM CHLORIDE 1 GM TABLET PO SCH ×2 (09:50→21:23)
--- NOTE | 2019-11-04 09:59 | PN ---
Progress Note, Physician History of Present Illness: The patient is a 89 year old female past medical history of PAF->SR on Eliquis, chronic anemia (Iron Infusions twice a month), IBS, HTN, HLD, DVT, PAD s/p [employer], RA presents with complaint of left foot pain beginning August of 2018. Patient has been followed by Dr. Goodwin for wound care. Patient was seen earlier in 5th floor wound care center where necrosis of the left foot third toe was noted and she was advised to proceed to Emergency Department. Patient agreed to trans-metatarsal amputation of left lower extremity tentatively scheduled tomorrow evening. Regarding CV symptoms, patient denies chest pain, shortness of breath, near or true syncope, palpitations, orthopnea, PND or LE edema. Last saw Dr. Fox in office 08/02/2019. - Current Medication List Current Medications: Active Medications Acetaminophen (Tylenol -) 650 mg PO Q6H PRN PRN Reason: PAIN LEVEL 1 - 3 Apixaban (Eliquis -) 2.5 mg PO BID [facility] Last Admin: 11/04/19 09:49 Dose: 2.5 mg Atorvastatin Calcium (Lipitor -) 10 mg PO HS [facility] Last Admin: 11/03/19 21:32 Dose: 10 mg Diltiazem HCl (Cardizem Cd -) 180 mg PO DAILY [facility] Last Admin: 11/04/19 09:49 Dose: 180 mg Docusate Sodium (Colace -) 100 mg PO BID PRN PRN Reason: CONSTIPATION Escitalopram Oxalate (Lexapro -) 20 mg PO DAILY [facility] Last Admin: 11/04/19 09:49 Dose: 20 mg Gabapentin (Neurontin -) 300 mg PO TID [facility] Last Admin: 11/04/19 05:37 Dose: 300 mg Vancomycin HCl (Vancomycin (Pre-Docked)) 1,000 mg in 250 mls @ 200 mls/hr IVPB Q24H [facility]; Protocol Last Admin: 11/04/19 06:56 Dose: 200 mls/hr Piperacillin Sod/Tazobactam (Sod 3.375 gm/ Dextrose) 50 mls @ 100 mls/hr IVPB Q8H-IV [facility]; Protocol Last Admin: 11/04/19 09:52 Dose: 100 mls/hr Metoprolol Succinate (Toprol Xl -) 50 mg PO [facility] Last Admin: 11/03/19 21:33 Dose: 50 mg Morphine Sulfate (Morphine Sulfate) 4 mg IVPUSH Q4H PRN PRN Reason: PAIN LEVEL 6-10 Non-Formulary Medication (Teriparatide [Forteo]) 0.8 ml SQ ACBK [facility] Last Admin: 11/04/19 06:57 Dose: 0.8 ml Oxycodone HCl (Roxicodone -) 5 mg PO Q4H PRN PRN Reason: PAIN LEVEL 1-5 Last Admin: 11/04/19 01:44 Dose: 5 mg Pantoprazole Sodium (Protonix -) 40 mg PO DAILY [facility] Last Admin: 11/04/19 09:49 Dose: 40 mg Prednisone (Deltasone -) 10 mg PO DAILY [facility] Stop: 11/05/19 09:59 Last Admin: 11/04/19 09:52 Dose: 10 mg Prednisone (Deltasone -) 2.5 mg PO DAILY [facility] Sodium Chloride (Sodium Chloride Tablet -) 1 gm PO BID [facility] Last Admin: 11/04/19 09:50 Dose: 1 gm Valsartan (Diovan -) 160 mg PO DAILY [facility] Last Admin: 11/04/19 09:49 Dose: 160 mg - Objective Vital Signs: Vital Signs Temperature 97.9 F 11/04/19 06:00 Pulse Rate 86 11/04/19 06:00 Respiratory Rate 18 11/04/19 06:00 Blood Pressure 122/83 11/04/19 06:00 O2 Sat by Pulse Oximetry (%) 95 11/03/19 21:00 Eyes: Yes: WNL, Conjunctiva Clear, EOM Intact HENT: Yes: WNL, Atraumatic, Normocephalic Neck: Yes: WNL, Supple, Trachea Midline Cardiovascular: Yes: WNL, Regular Rate and Rhythm Respiratory: Yes: WNL, Regular, CTA Bilaterally Gastrointestinal: Yes: WNL, Normal Bowel Sounds Genitourinary: Yes: WNL Musculoskeletal: Yes: WNL Extremities: Yes: Amputation (L TMA) Edema: No Integumentary: Yes: WNL Neurological: Yes: WNL, Alert, Oriented ...Motor Strength: WNL Psychiatric: Yes: WNL Labs: CBC, BMP 11/04/19 06:37 11/04/19 06:37 INR, PTT INR 1.44 (0.83-1.09) H 11/01/19 07:48 Problem List - Problems (1) Hyponatremia Code(s): E87.1 - HYPO-OSMOLALITY AND HYPONATREMIA (2) Ischemia Code(s): I99.8 - OTHER DISORDER OF CIRCULATORY SYSTEM (3) PVD (peripheral vascular disease) Code(s): I73.9 - PERIPHERAL VASCULAR DISEASE, UNSPECIFIED (4) Rheumatoid arthritis Code(s): M06.9 - RHEUMATOID ARTHRITIS, UNSPECIFIED Qualifiers: Rheumatoid arthritis location: unspecified site (5) Rheumatoid arthritis Code(s): M06.9 - RHEUMATOID ARTHRITIS, UNSPECIFIED (6) Acute pain Code(s): R52 - PAIN, UNSPECIFIED (7) Afib Code(s): I48.91 - UNSPECIFIED ATRIAL FIBRILLATION Qualifiers: Atrial fibrillation type: chronic (8) Back spasm Code(s): M62.830 - MUSCLE SPASM OF BACK (9) Compression fracture of body of thoracic vertebra Code(s): M48.54XA - COLLAPSED VERTEBRA, NEC, THORACIC REGION, INIT (10) Cough Code(s): R05 - COUGH (11) Dehydration Code(s): E86.0 - DEHYDRATION (12) Dilated bile duct Code(s): K83.8 - OTHER SPECIFIED DISEASES OF BILIARY TRACT (13) Elevated INR Code(s): R79.1 - ABNORMAL COAGULATION PROFILE (14) Fracture of rib of right side Code(s): S22.31XA - FRACTURE OF ONE RIB, RIGHT SIDE, INIT FOR CLOS FX Qualifiers: Encounter type: initial encounter Rib fracture type: single rib Fracture type: closed Qualified Code(s): S22.31XA - Fracture of one rib, right side, initial encounter for closed fracture (15) Fracture, ribs Code(s): S22.39XA - FRACTURE OF ONE RIB, UNSP SIDE, INIT FOR CLOS FX Qualifiers: Encounter type: initial encounter Rib fracture type: multiple ribs Fracture type: closed Laterality: left Qualified Code(s): S22.42XA - Multiple fractures of ribs, left side, initial encounter for closed fracture (16) GERD (gastroesophageal reflux disease) Code(s): K21.9 - GASTRO-ESOPHAGEAL REFLUX DISEASE WITHOUT ESOPHAGITIS (17) HTN (hypertension) Code(s): I10 - ESSENTIAL (PRIMARY) HYPERTENSION Qualifiers: Hypertension type: essential hypertension Qualified Code(s): I10 - Essential (primary) hypertension (18) Head injury, closed Code(s): S09.90XA - UNSPECIFIED INJURY OF HEAD, INITIAL ENCOUNTER Qualifiers: Encounter type: initial encounter Qualified Code(s): S09.90XA - Unspecified injury of head, initial encounter (19) Hematuria Code(s): R31.9 - HEMATURIA, UNSPECIFIED (20) Hyperkalemia Code(s): E87.5 - HYPERKALEMIA (21) Hypoxemia Code(s): R09.02 - HYPOXEMIA (22) Ischemic pain of left foot Code(s): M79.672 - PAIN IN LEFT FOOT; I99.9 - UNSPECIFIED DISORDER OF CIRCULATORY SYSTEM (23) Left foot pain Code(s): M79.672 - PAIN IN LEFT FOOT (24) Leg pain, left Code(s): M79.605 - PAIN IN LEFT LEG (25) Nausea & vomiting Code(s): R11.2 - NAUSEA WITH VOMITING, UNSPECIFIED Qualifiers: Vomiting type: unspecified Vomiting Intractability: non-intractable Qualified Code(s): R11.2 - Nausea with vomiting, unspecified (26) Paroxysmal atrial fibrillation Code(s): I48.0 - PAROXYSMAL ATRIAL FIBRILLATION (27) Skin tear of elbow without complication Code(s): S51.019A - LACERATION WITHOUT FOREIGN BODY OF UNSP ELBOW, INIT ENCNTR Qualifiers: Encounter type: initial encounter Laterality: right Qualified Code(s): S51.011A - Laceration without foreign body of right elbow, initial encounter (28) Stage II pressure ulcer of left heel Code(s): L89.622 - PRESSURE ULCER OF LEFT HEEL, STAGE 2 (29) Stage III pressure ulcer of left heel Code(s): L89.623 - PRESSURE ULCER OF LEFT HEEL, STAGE 3 (30) Thoracic back pain Code(s): M54.6 - PAIN IN THORACIC SPINE (31) Type 2 diabetes mellitus with foot ulcer Code(s): E11.621 - TYPE 2 DIABETES MELLITUS WITH FOOT ULCER; L97.509 - NON- PRESSURE CHRONIC ULCER OTH PRT UNSP FOOT W UNSP SEVERITY Qualifiers: Diabetes mellitus exterminator termite insulin use: without exterminator termite use Qualified Code(s): E11.621 - Type 2 diabetes mellitus with foot ulcer; L97.509 - Non- pressure chronic ulcer of other part of unspecified foot with unspecified severity (32) Upper back strain Code(s): S29.012A - STRAIN OF MUSCLE AND TENDON OF BACK WALL OF THORAX, INIT (33) Urinary tract infection Code(s): N39.0 - URINARY TRACT INFECTION, SITE NOT SPECIFIED Qualifiers: Urinary tract infection type: acute cystitis Hematuria presence: with hematuria Qualified Code(s): N30.01 - Acute cystitis with hematuria (34) Vomiting Code(s): R11.10 - VOMITING, UNSPECIFIED (35) Weakness Code(s): R53.1 - WEAKNESS Assessment/Plan 11/01/2019 Echo: Normal LV and RV size and fxn, mod-severe MR, severe TR RVSP 40 -50 mmHg, 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 Stable post op 2. PAD s/p [employer] with bilateral toe necrosis -s/p TMA 3. PAF->SR on Eliquis 4. DVT 5. HTN 6. Hyperlipidemia 7. Anemia 8. Rheumatoid arthritis 9. Hyponatremia suspect SIADH P: Continue empiric abx course Continue Eliquis 2.5 bid periop per vascular surgery Continue losartan 100 qd, Toprol XL 50 qd, Zocor 20 qhs, Cardizem CD 180 qd, Diovan 160 qd Added NaCl, free water restrict hyponatremia resolving coverage for dr. Tohmas
[2019-11-04] MEDS ORDERED: PANTOPRAZOLE SODIUM 40 MG VIAL IVPUSH SCH (10:00)
[2019-11-04] MEDS ORDERED: predniSONE 5 MG TABLET (UD) PO SCH (10:00)
--- NOTE | 2019-11-04 10:33 | PN ---
Progress Note (short form) - Note Progress Note: s/p TMA pod #1 still with nerve block- pain free and smiling! Vital Signs Period Temp Pulse Resp BP Sys/Ying Pulse Ox Last 24 Hr 97.8 F-98.6 F 73-106 14-18 122-157/62-83 95-100 cor-rrr lungs clear abd soft,nt ext left foot dry gangrene toes 1 to 3 right foot with postop dressing CBC, BMP 11/04/19 06:37 11/04/19 06:37 imp/reccd s/p left foot TMA- pod #1- continue vanco/zosyn will d/w podiatry severe PVD RA pain management Problem List - Problems (1) PVD (peripheral vascular disease) Code(s): I73.9 - PERIPHERAL VASCULAR DISEASE, UNSPECIFIED (2) Rheumatoid arthritis Code(s): M06.9 - RHEUMATOID ARTHRITIS, UNSPECIFIED Qualifiers: Rheumatoid arthritis location: unspecified site
[2019-11-04] MEDS: ACETAMINOPHEN 325 MG TABLET (FP) PO PRN ×2 (11:04→17:24)
--- NOTE | 2019-11-04 11:43 | PN ---
Physical Exam: SUBJECTIVE: Patient seen and examined at bedside. No new complaints. Pain free. OBJECTIVE: Vital Signs Period Temp Pulse Resp BP Sys/Ying Pulse Ox Last 24 Hr 97.8 F-98.6 F 73-106 14-18 122-157/62-83 95-100 GENERAL: The patient is awake, alert, and fully oriented, in no acute distress. HEAD: Normal with no signs of trauma. LUNGS: Breath sounds equal, clear to auscultation bilaterally, no wheezes, no crackles, no accessory muscle use. HEART: Regular rate and rhythm, S1, S2 without murmur, rub or gallop. ABDOMEN: Soft, nontender, nondistended, normoactive bowel sounds, no guarding, no rebound, no hepatosplenomegaly, no masses. EXTREMITIES: 2+ pulses, warm, well-perfused, no edema. There is a post op dressing on left foot. Ischemic changes over the toes on the left foot NEUROLOGICAL: Cranial nerves II through X grossly intact. Normal speech, gait not observed. PSYCH: Normal mood, normal affect. SKIN: Warm, dry, normal turgor, no rashes or lesions noted Laboratory Results - last 24 hr 11/04/19 11/04/19 11/04/19 05:38 06:37 06:37 WBC 11.6 H RBC 3.44 L Hgb 10.4 L Hct 31.6 L D MCV 92.0 MCH 30.2 MCHC 32.8 RDW 15.9 H Plt Count 397 MPV 6.7 L Sodium 134 L Potassium 4.4 Chloride 97 L Carbon Dioxide 30 Anion Gap 7 L BUN 15.3 Creatinine 0.4 L Est GFR (CKD-EPI)AfAm 107.03 Est GFR (CKD-EPI)NonAf 92.34 Random Glucose 113 H Calcium 8.5 Phosphorus 2.5 Magnesium 2.0 Total Bilirubin 0.4 AST 20 ALT 20 Alkaline Phosphatase 80 Total Protein 5.2 L Albumin 2.4 L Vancomycin Pre-Dose 7.4 L Active Medications Generic Name Dose Route Start Last Admin Trade Name Freq PRN Reason Stop Dose Admin Acetaminophen 650 mg 11/03/19 20:24 11/04/19 11:04 Tylenol - PO 650 mg Q6H PRN Administration PAIN LEVEL 1 - 3 Apixaban 2.5 mg 11/03/19 22:00 11/04/19 09:49 Eliquis - PO 2.5 mg BID [facility] Administration Atorvastatin Calcium 10 mg 11/03/19 22:00 11/03/19 21:32 Lipitor - PO 10 mg HS [facility] Administration Diltiazem HCl 180 mg 11/04/19 10:00 11/04/19 09:49 Cardizem Cd - PO 180 mg DAILY [facility] Administration Docusate Sodium 100 mg 11/03/19 20:24 Colace - PO BID PRN CONSTIPATION Escitalopram Oxalate 20 mg 11/04/19 10:00 11/04/19 09:49 Lexapro - PO 20 mg DAILY [facility] Administration Gabapentin 300 mg 11/03/19 22:00 11/04/19 05:37 Neurontin - PO 300 mg TID [facility] Administration Vancomycin HCl 1,000 mg in 250 mls @ 200 mls/hr 11/04/19 06:00 11/04/19 06:56 Vancomycin (Pre-Docked) IVPB 200 mls/hr Q24H [facility] Administration Protocol Piperacillin Sod/Tazobactam 50 mls @ 100 mls/hr 11/03/19 21:00 11/04/19 09:52 Sod 3.375 gm/ Dextrose IVPB 100 mls/hr Q8H-IV [facility] Administration Protocol Metoprolol Succinate 50 mg 11/03/19 22:00 11/03/19 21:33 Toprol Xl - PO 50 mg HS [facility] Administration Morphine Sulfate 4 mg 11/03/19 18:49 Morphine Sulfate IVPUSH Q4H PRN PAIN LEVEL 6-10 Non-Formulary Medication 0.8 ml 11/04/19 07:00 11/04/19 06:57 Teriparatide [Forteo] SQ 0.8 ml ACBK [facility] Administration Oxycodone HCl 5 mg 11/03/19 20:24 11/04/19 11:00 Roxicodone - PO 5 mg Q4H PRN Administration PAIN LEVEL 1-5 Pantoprazole Sodium 40 mg 11/04/19 10:00 11/04/19 09:49 Protonix - PO 40 mg DAILY [facility] Administration Prednisone 10 mg 11/04/19 10:00 11/04/19 09:52 Deltasone - PO 11/05/19 09:59 10 mg DAILY [facility] Administration Prednisone 2.5 mg 11/05/19 10:00 Deltasone - PO DAILY [facility] Sodium Chloride 1 gm 11/03/19 22:00 11/04/19 09:50 Sodium Chloride Tablet - PO 1 gm BID [facility] Administration Valsartan 160 mg 11/04/19 10:00 11/04/19 09:49 Diovan - PO 160 mg DAILY [facility] Administration ASSESSMENT/PLAN: 89 y/o female PMH HTN, HLD, DVT (onEliquis), peripheral venous disease (s/p three angioplasty), anemia presents with complaint of LEFT foot pain, sent from Vascular Surgery, was scheduled TMA but cancled 2/2 low Na. 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 Ejection Fraction LVEF > or = 40% - EKG: NSR @ 93. IRBBB, LAD similar to previous 08/02/2019 # ?Parkinson Disease - Patient on Parkinson medication per med rec - Will clarify with PCP # HTN - Continue home regimen # HLD - Continue home regimen # F/E/N - fluid restriction as above - Cont. to monitor - regular diet # DVT prophylaxis - Eliquis # Disposition - Med/surg Visit type - Emergency Visit Emergency Visit: Yes ED Registration Date: 10/31/19 Care time: The patient presented to the Emergency Department on the above date and was hospitalized for further evaluation of their emergent condition. - New Patient This patient is new to me today: Yes Date on this admission: 11/04/19 - Critical Care Critical Care patient: No ATTENDING PHYSICIAN STATEMENT I saw and evaluated the patient. I reviewed the resident's note and discussed the case with the resident. I agree with the resident's findings and plan as documented. SUBJECTIVE: OBJECTIVE: ASSESSMENT AND PLAN:
--- NOTE | 2019-11-04 12:12 | PN ---
Teaching Attending Note Name of Resident: Dick Richardson ATTENDING PHYSICIAN STATEMENT I saw and evaluated the patient. I reviewed the resident's note and discussed the case with the resident. I agree with the resident's findings and plan as documented. SUBJECTIVE: No fever or chills. No KEANE . No pain in feet today. She has no SOB or CP. feels gret. OBJECTIVE: NAD, awake, alert, cooperative. CV: RRR, 3/6 SM at [facility], [place], and [facility]. No radiation. Lungs: CTAB Abd: soft, NT, ND , NL BS. Ext: no edema on legs. L foot in a clean post op dressing . R foot with black tip of 1,2,3 toes and a small area on medial tip of the 4th foot ASSESSMENT AND PLAN: 89 y/o lady with h/o PVD, HTN, remote DVT, HLP, esophageal ulcer, IBS, paroxysmal AF,s/p angioplasty, and anemia who presented after being sent bt Dr. Goodwin for TMT amputation. 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 s/p TMA of L side. POD 1 - cont Abx vanco and zosyn . vanco trough noted. will discuss Abx with dr. Baez - cont morphine at 4 mg and oxy at 5 mg as needed. - Son expressed interest in discussing pain control regimen and future nerve block. will ask Dr. Salamanca to evaluate - will ask about weight baring instructions 2- h/o HTN, paroxysmal A fib: - cont cardizem, metoprolol, - cont eliquis . 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 - cont salt tab and fluid restriction . Na 134 today 4- Remote H/o DVT: - cont eliquis 5- Cont predniosne. give 10 today . then resume her home dose of 2.5 family is not sure of indication of predniosne and MTX HLOC
--- NOTE | 2019-11-04 15:05 | PN ---
Progress Note (short form) - Note Progress Note: 89 year old pleasant female, history of HTN, AR, DVT on eliquis AC presented to wound healing center yesterday with progressive gangrenous changes to the left foot. Is now s/p left foot TMA done yesterday with Dr. Goodwin. tolerated procedure well, minimal pain today. Seen with son at [facility] O: left dressing was c/d/i with some sanguine strikethrough to the underlying, surgical site intact with no erythema, no edema noted, no dehiscence, no ischemic necrosis noted, some minimal blanching noted on the flap site and flap is minimally cool to touch but does have reflex cap fill time to the touch that appears wnl at this time , no pain on palpation Right foot with distal gangrenous changes ot he forefoot, moderate eschemic erythema noted, pain on palpation, no wet grangrous changes noted A: s/p left foot TMa right foot dry gangrene P: Evaluated and dsicussed findings with son and patient To be minimal WB to the left heel Recc PT to work with patient to get rolling walker if able as doubt can be completely NWB to the foot Next few weeks will be very important for f/u and can f/u in the [facility] with Dr. Goodwin and Dr. Loya discussed once Dr. Goodwin addresses right leg flow we can discuss further plans for amputation on the right foot. Would recc letting left heal first if possible prior to Right TMA Wound redressed with xeroform DSD and can change daily while admitted. Will f/u as outpatient.
[2019-11-04 16:56] LABS: HEMATOCRIT 33.1 % (32.4-45.2); HEMOGLOBIN 10.4 GM/dL (10.7-15.3); MCH 29.5 pg (25.7-33.7); MCHC 31.5 g/dl (32.0-36.0); MEAN CELL VOLUME 93.6 fl (80-96); MEAN PLT VOLUME 6.7 fl (7.5-11.1); PLATELET COUNT 399 K/MM3 (134-434); RBC 3.54 M/mm3 (3.60-5.2); WHITE BLOOD COUNT 15.1 K/mm3 (4.0-10.0)
[2019-11-04] MEDS ORDERED: PT OWN MED DRAWER 7, Y5N ONE (17:23)
--- NOTE | 2019-11-04 19:43 | PN ---
Progress Note, Physician History of Present Illness: Pt seen and examined at bedside. She is awake and alert. She denies shortness of breath. - Current Medication List Current Medications: Active Medications Acetaminophen (Tylenol -) 650 mg PO Q6H PRN PRN Reason: PAIN LEVEL 1 - 3 Last Admin: 11/04/19 17:24 Dose: 650 mg Apixaban (Eliquis -) 2.5 mg PO BID [facility] Last Admin: 11/04/19 09:49 Dose: 2.5 mg Atorvastatin Calcium (Lipitor -) 10 mg PO HS [facility] Last Admin: 11/03/19 21:32 Dose: 10 mg Diltiazem HCl (Cardizem Cd -) 180 mg PO DAILY [facility] Last Admin: 11/04/19 09:49 Dose: 180 mg Docusate Sodium (Colace -) 100 mg PO BID PRN PRN Reason: CONSTIPATION Escitalopram Oxalate (Lexapro -) 20 mg PO DAILY [facility] Last Admin: 11/04/19 09:49 Dose: 20 mg Gabapentin (Neurontin -) 300 mg PO TID [facility] Last Admin: 11/04/19 15:02 Dose: 300 mg Vancomycin HCl (Vancomycin (Pre-Docked)) 1,000 mg in 250 mls @ 200 mls/hr IVPB Q24H [facility]; Protocol Last Admin: 11/04/19 06:56 Dose: 200 mls/hr Piperacillin Sod/Tazobactam (Sod 3.375 gm/ Dextrose) 50 mls @ 100 mls/hr IVPB Q8H-IV [facility]; Protocol Last Admin: 11/04/19 17:18 Dose: 100 mls/hr Metoprolol Succinate (Toprol Xl -) 50 mg PO HS [facility] Last Admin: 11/03/19 21:33 Dose: 50 mg Morphine Sulfate (Morphine Sulfate) 4 mg IVPUSH Q4H PRN PRN Reason: PAIN LEVEL 6-10 Non-Formulary Medication (Teriparatide [Forteo]) 0.8 ml SQ ACBK [facility] Last Admin: 11/04/19 06:57 Dose: 0.8 ml Oxycodone HCl (Roxicodone -) 5 mg PO Q4H PRN PRN Reason: PAIN LEVEL 1-5 Last Admin: 11/04/19 17:23 Dose: 5 mg Pantoprazole Sodium (Protonix -) 40 mg PO DAILY [facility] Last Admin: 11/04/19 09:49 Dose: 40 mg Prednisone (Deltasone -) 10 mg PO DAILY [facility] Stop: 11/05/19 09:59 Last Admin: 11/04/19 09:52 Dose: 10 mg Prednisone (Deltasone -) 2.5 mg PO DAILY [facility] Sodium Chloride (Sodium Chloride Tablet -) 1 gm PO BID [facility] Last Admin: 11/04/19 09:50 Dose: 1 gm Valsartan (Diovan -) 160 mg PO DAILY [facility] Last Admin: 11/04/19 09:49 Dose: 160 mg - Objective Vital Signs: Vital Signs Temperature 97.9 F 11/04/19 14:00 Pulse Rate 73 11/04/19 17:05 Respiratory Rate 18 11/04/19 17:05 Blood Pressure 122/64 11/04/19 17:05 O2 Sat by Pulse Oximetry (%) 93 L 11/04/19 09:00 Constitutional: Yes: Calm Eyes: Yes: Conjunctiva Clear HENT: Yes: Atraumatic Neck: Yes: Supple Cardiovascular: Yes: S1, S2 Respiratory: Yes: CTA Bilaterally Gastrointestinal: Yes: Soft Genitourinary: Yes: WNL Extremities: Yes: WNL Edema: No Wound/Incision: Yes: Dressing Dry and Intact Neurological: Yes: Oriented Labs: CBC, BMP 11/04/19 16:19 11/04/19 06:37 INR, PTT INR 1.44 (0.83-1.09) H 11/01/19 07:48 Problem List - Problems (1) Hyponatremia Code(s): E87.1 - HYPO-OSMOLALITY AND HYPONATREMIA (2) Ischemia Code(s): I99.8 - OTHER DISORDER OF CIRCULATORY SYSTEM (3) PVD (peripheral vascular disease) Code(s): I73.9 - PERIPHERAL VASCULAR DISEASE, UNSPECIFIED Assessment/Plan Current Medications Generic Name Dose Route Start Last Admin Trade Name Freq PRN Reason Stop Dose Admin Acetaminophen 650 mg 11/03/19 20:24 11/04/19 17:24 Tylenol - PO 650 mg Q6H PRN Administration PAIN LEVEL 1 - 3 Apixaban 2.5 mg 11/03/19 22:00 11/04/19 09:49 Eliquis - PO 2.5 mg BID [facility] Administration Atorvastatin Calcium 10 mg 11/03/19 22:00 11/03/19 21:32 Lipitor - PO 10 mg HS [facility] Administration Diltiazem HCl 180 mg 11/04/19 10:00 11/04/19 09:49 Cardizem Cd - PO 180 mg DAILY [facility] Administration Docusate Sodium 100 mg 11/03/19 20:24 Colace - PO BID PRN CONSTIPATION Escitalopram Oxalate 20 mg 11/04/19 10:00 11/04/19 09:49 Lexapro - PO 20 mg DAILY [facility] Administration Gabapentin 300 mg 11/03/19 22:00 11/04/19 15:02 Neurontin - PO 300 mg TID [facility] Administration Vancomycin HCl 1,000 mg in 250 mls @ 200 mls/hr 11/04/19 06:00 11/04/19 06:56 Vancomycin (Pre-Docked) IVPB 200 mls/hr Q24H [facility] Administration Protocol Piperacillin Sod/Tazobactam 50 mls @ 100 mls/hr 11/03/19 21:00 11/04/19 17:18 Sod 3.375 gm/ Dextrose IVPB 100 mls/hr Q8H-IV [facility] Administration Protocol Metoprolol Succinate 50 mg 11/03/19 22:00 11/03/19 21:33 Toprol Xl - PO 50 mg HS [facility] Administration Morphine Sulfate 4 mg 11/03/19 18:49 Morphine Sulfate IVPUSH Q4H PRN PAIN LEVEL 6-10 Non-Formulary Medication 0.8 ml 11/04/19 07:00 11/04/19 06:57 Teriparatide [Forteo] SQ 0.8 ml ACBK [facility] Administration Oxycodone HCl 5 mg 11/03/19 20:24 11/04/19 17:23 Roxicodone - PO 5 mg Q4H PRN Administration PAIN LEVEL 1-5 Pantoprazole Sodium 40 mg 11/04/19 10:00 11/04/19 09:49 Protonix - PO 40 mg DAILY [facility] Administration Prednisone 10 mg 11/04/19 10:00 11/04/19 09:52 Deltasone - PO 11/05/19 09:59 10 mg DAILY [facility] Administration Prednisone 2.5 mg 11/05/19 10:00 Deltasone - PO DAILY [facility] Sodium Chloride 1 gm 11/03/19 22:00 11/04/19 09:50 Sodium Chloride Tablet - PO 1 gm BID [facility] Administration Valsartan 160 mg 11/04/19 10:00 11/04/19 09:49 Diovan - PO 160 mg DAILY [facility] Administration Impression 1. hyponatremia 2. PVD 3. HTN 4. HLD 5. DVT 6. anemia Plan - sodium is improved - cont salt tabs - cont free water restriction - pt refusing any more ct scans at this time - monitor volume status
--- NOTE | 2019-11-04 19:52 | PN ---
Progress Note (short form) - Note Progress Note: Anesthesiology Post-op POD#1 s/p TMA of left foot under regional block and GA. Pt. doing well. No acute issues. VSS. No apparent anesthesia-related issues. 89 y.o. woman with stable post-operative course. Continue management as per primary team.
[2019-11-04] MEDS: ATORVASTATIN CA 10 MG TABLET (FP) PO SCH (21:23)
[2019-11-04] MEDS ORDERED: MELATONIN 5 MG TABLETS PO ONE (22:26)
[2019-11-05] MEDS ORDERED: DEXTROSE 5%-WATER - 50 ML IVPB ONE ×2 (01:46→09:56)
[2019-11-05] MEDS ORDERED: PIPERACILLIN/TAZOBACTAM 3.375 GM VIAL IVPB ONE ×2 (01:46→09:56)
[2019-11-05] MEDS: PIPERACILLIN/TAZOB 3.375 GM 3.375 GM in DEXTROSE 5%-WATER - 50 ML IVPB SCH ×2 (02:10→10:01)
[2019-11-05] MEDS: oxyCODONE HCL 5 MG TABLET PO PRN ×4 (03:00→22:01)
[2019-11-05] MEDS: ACETAMINOPHEN 325 MG TABLET (FP) PO PRN ×2 (03:01→11:51)
[2019-11-05] MEDS: GABAPENTIN 300 MG CAPSULE (FP) PO SCH ×3 (06:17→22:00)
[2019-11-05] MEDS: VANCOMYCIN 1 GRAM (PRE-DOCKED) 1,000 MG/250 ML BAG IVPB SCH (06:17)
[2019-11-05] MEDS: TERIPARATIDE SQ SCH (07:17)
[2019-11-05 07:28] LABS: ALBUMIN 2.3 g/dl (3.4-5.0); BILIRUBIN,TOTAL 0.3 mg/dL (0.2-1); BLOOD UREA NITROGEN 18.8 mg/dL (7-18); CALCIUM 8.5 mg/dL (8.5-10.1); CREATININE 0.4 mg/dL (0.55-1.3); POTASSIUM 3.9 mmol/L (3.5-5.1); TOT PROT 4.6 g/dl (6.4-8.2)
[2019-11-05 07:44] LABS: HEMATOCRIT 29.4 % (32.4-45.2); HEMOGLOBIN 9.5 GM/dL (10.7-15.3); MCH 29.9 pg (25.7-33.7); MCHC 32.5 g/dl (32.0-36.0); MEAN PLT VOLUME 6.7 fl (7.5-11.1); PLATELET COUNT 377 K/MM3 (134-434); RDW 15.8 % (11.6-15.6); WHITE BLOOD COUNT 13.5 K/mm3 (4.0-10.0)
--- NOTE | 2019-11-05 08:05 | PN ---
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 Patient has been followed by Dr. Goodwin for wound care. Patient was seen earlier in 5th floor wound care center where necrosis of the left foot third toe was noted and she was advised to proceed to Emergency Department. Patient agreed to trans-metatarsal amputation of left lower extremity tentatively scheduled tomorrow evening. Regarding CV symptoms, patient denies chest pain, shortness of breath, near or true syncope, palpitations, orthopnea, PND or LE edema. Last saw Dr. Fox in office 08/02/2019. - Current Medication List Current Medications: Active Medications Acetaminophen (Tylenol -) 650 mg PO Q6H PRN PRN Reason: PAIN LEVEL 1 - 3 Last Admin: 11/05/19 03:01 Dose: 650 mg Apixaban (Eliquis -) 2.5 mg PO BID [facility] Last Admin: 11/04/19 21:23 Dose: 2.5 mg Atorvastatin Calcium (Lipitor -) 10 mg PO HS [facility] Last Admin: 11/04/19 21:23 Dose: 10 mg Diltiazem HCl (Cardizem Cd -) 180 mg PO DAILY [facility] Last Admin: 11/04/19 09:49 Dose: 180 mg Docusate Sodium (Colace -) 100 mg PO BID PRN PRN Reason: CONSTIPATION Escitalopram Oxalate (Lexapro -) 20 mg PO DAILY [facility] Last Admin: 11/04/19 09:49 Dose: 20 mg Gabapentin (Neurontin -) 300 mg PO TID [facility] Last Admin: 11/05/19 06:17 Dose: 300 mg Vancomycin HCl (Vancomycin (Pre-Docked)) 1,000 mg in 250 mls @ 200 mls/hr IVPB Q24H [facility]; Protocol Last Admin: 11/05/19 06:17 Dose: 200 mls/hr Piperacillin Sod/Tazobactam (Sod 3.375 gm/ Dextrose) 50 mls @ 100 mls/hr IVPB Q8H-IV [facility]; Protocol Last Admin: 11/05/19 02:10 Dose: 100 mls/hr Metoprolol Succinate (Toprol Xl -) 50 mg PO [facility] Last Admin: 11/04/19 21:23 Dose: 50 mg Non-Formulary Medication (Teriparatide [Forteo]) 0.8 ml SQ ACBK [facility] Last Admin: 11/05/19 07:17 Dose: 0.8 ml Oxycodone HCl (Roxicodone -) 5 mg PO Q4H PRN PRN Reason: PAIN LEVEL 1-5 Last Admin: 11/05/19 03:00 Dose: 5 mg Pantoprazole Sodium (Protonix -) 40 mg PO DAILY [facility] Last Admin: 11/04/19 09:49 Dose: 40 mg Prednisone (Deltasone -) 10 mg PO DAILY [facility] Stop: 11/05/19 09:59 Last Admin: 11/04/19 09:52 Dose: 10 mg Prednisone (Deltasone -) 2.5 mg PO DAILY [facility] Sodium Chloride (Sodium Chloride Tablet -) 1 gm PO BID [facility] Last Admin: 11/04/19 21:23 Dose: 1 gm Valsartan (Diovan -) 160 mg PO DAILY [facility] Last Admin: 11/04/19 09:49 Dose: 160 mg - Objective Vital Signs: Vital Signs Temperature 97.8 F 11/05/19 05:00 Pulse Rate 64 11/05/19 05:00 Respiratory Rate 20 11/05/19 05:00 Blood Pressure 144/65 11/05/19 05:00 O2 Sat by Pulse Oximetry (%) 93 L 11/04/19 09:00 Eyes: Yes: WNL, Conjunctiva Clear, EOM Intact HENT: Yes: WNL, Atraumatic, Normocephalic Neck: Yes: WNL, Supple, Trachea Midline Cardiovascular: Yes: WNL, Regular Rate and Rhythm Respiratory: Yes: WNL, Regular, CTA Bilaterally Gastrointestinal: Yes: WNL, Normal Bowel Sounds Genitourinary: Yes: WNL Musculoskeletal: Yes: WNL Extremities: Yes: Amputation (L TMA) Edema: No Integumentary: Yes: WNL Neurological: Yes: WNL, Alert, Oriented ...Motor Strength: WNL Psychiatric: Yes: WNL Labs: CBC, BMP 11/05/19 05:30 INR, PTT INR 1.44 (0.83-1.09) H 11/01/19 07:48 Problem List - Problems (1) Hyponatremia Code(s): E87.1 - HYPO-OSMOLALITY AND HYPONATREMIA (2) Ischemia Code(s): I99.8 - OTHER DISORDER OF CIRCULATORY SYSTEM (3) PVD (peripheral vascular disease) Code(s): I73.9 - PERIPHERAL VASCULAR DISEASE, UNSPECIFIED (4) Rheumatoid arthritis Code(s): M06.9 - RHEUMATOID ARTHRITIS, UNSPECIFIED Qualifiers: Rheumatoid arthritis location: unspecified site (5) Rheumatoid arthritis Code(s): M06.9 - RHEUMATOID ARTHRITIS, UNSPECIFIED (6) Acute pain Code(s): R52 - PAIN, UNSPECIFIED (7) Afib Code(s): I48.91 - UNSPECIFIED ATRIAL FIBRILLATION Qualifiers: Atrial fibrillation type: chronic (8) Back spasm Code(s): M62.830 - MUSCLE SPASM OF BACK (9) Compression fracture of body of thoracic vertebra Code(s): M48.54XA - COLLAPSED VERTEBRA, NEC, THORACIC REGION, INIT (10) Cough Code(s): R05 - COUGH (11) Dehydration Code(s): E86.0 - DEHYDRATION (12) Dilated bile duct Code(s): K83.8 - OTHER SPECIFIED DISEASES OF BILIARY TRACT (13) Elevated INR Code(s): R79.1 - ABNORMAL COAGULATION PROFILE (14) Fracture of rib of right side Code(s): S22.31XA - FRACTURE OF ONE RIB, RIGHT SIDE, INIT FOR CLOS FX Qualifiers: Encounter type: initial encounter Rib fracture type: single rib Fracture type: closed Qualified Code(s): S22.31XA - Fracture of one rib, right side, initial encounter for closed fracture (15) Fracture, ribs Code(s): S22.39XA - FRACTURE OF ONE RIB, UNSP SIDE, INIT FOR CLOS FX Qualifiers: Encounter type: initial encounter Rib fracture type: multiple ribs Fracture type: closed Laterality: left Qualified Code(s): S22.42XA - Multiple fractures of ribs, left side, initial encounter for closed fracture (16) GERD (gastroesophageal reflux disease) Code(s): K21.9 - GASTRO-ESOPHAGEAL REFLUX DISEASE WITHOUT ESOPHAGITIS (17) HTN (hypertension) Code(s): I10 - ESSENTIAL (PRIMARY) HYPERTENSION Qualifiers: Hypertension type: essential hypertension Qualified Code(s): I10 - Essential (primary) hypertension (18) Head injury, closed Code(s): S09.90XA - UNSPECIFIED INJURY OF HEAD, INITIAL ENCOUNTER Qualifiers: Encounter type: initial encounter Qualified Code(s): S09.90XA - Unspecified injury of head, initial encounter (19) Hematuria Code(s): R31.9 - HEMATURIA, UNSPECIFIED (20) Hyperkalemia Code(s): E87.5 - HYPERKALEMIA (21) Hypoxemia Code(s): R09.02 - HYPOXEMIA (22) Ischemic pain of left foot Code(s): M79.672 - PAIN IN LEFT FOOT; I99.9 - UNSPECIFIED DISORDER OF CIRCULATORY SYSTEM (23) Left foot pain Code(s): M79.672 - PAIN IN LEFT FOOT (24) Leg pain, left Code(s): M79.605 - PAIN IN LEFT LEG (25) Nausea & vomiting Code(s): R11.2 - NAUSEA WITH VOMITING, UNSPECIFIED Qualifiers: Vomiting type: unspecified Vomiting Intractability: non-intractable Qualified Code(s): R11.2 - Nausea with vomiting, unspecified (26) Paroxysmal atrial fibrillation Code(s): I48.0 - PAROXYSMAL ATRIAL FIBRILLATION (27) Skin tear of elbow without complication Code(s): S51.019A - LACERATION WITHOUT FOREIGN BODY OF UNSP ELBOW, INIT ENCNTR Qualifiers: Encounter type: initial encounter Laterality: right Qualified Code(s): S51.011A - Laceration without foreign body of right elbow, initial encounter (28) Stage II pressure ulcer of left heel Code(s): L89.622 - PRESSURE ULCER OF LEFT HEEL, STAGE 2 (29) Stage III pressure ulcer of left heel Code(s): L89.623 - PRESSURE ULCER OF LEFT HEEL, STAGE 3 (30) Thoracic back pain Code(s): M54.6 - PAIN IN THORACIC SPINE (31) Type 2 diabetes mellitus with foot ulcer Code(s): E11.621 - TYPE 2 DIABETES MELLITUS WITH FOOT ULCER; L97.509 - NON- PRESSURE CHRONIC ULCER OTH PRT UNSP FOOT W UNSP SEVERITY Qualifiers: Diabetes mellitus correction insulin use: without terminal worker use Qualified Code(s): E11.621 - Type 2 diabetes mellitus with foot ulcer; L97.509 - Non- pressure chronic ulcer of other part of unspecified foot with unspecified severity (32) Upper back strain Code(s): S29.012A - STRAIN OF MUSCLE AND TENDON OF BACK WALL OF THORAX, INIT (33) Urinary tract infection Code(s): N39.0 - URINARY TRACT INFECTION, SITE NOT SPECIFIED Qualifiers: Urinary tract infection type: acute cystitis Hematuria presence: with hematuria Qualified Code(s): N30.01 - Acute cystitis with hematuria (34) Vomiting Code(s): R11.10 - VOMITING, UNSPECIFIED (35) Weakness Code(s): R53.1 - WEAKNESS Assessment/Plan 11/01/2019 Echo: Normal LV and RV size and fxn, mod-severe MR, severe TR RVSP 40 -50 mmHg, 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 Stable post op 2. PAD s/p RUBBER G[employer] TRIMMER with bilateral toe necrosis -s/p TMA 3. PAF->SR on Eliquis 4. DVT 5. HTN 6. Hyperlipidemia 7. Anemia 8. Rheumatoid arthritis 9. Hyponatremia suspect SIADH P: Continue empiric abx course Continue Eliquis 2.5 bid periop per vascular surgery Continue losartan 100 qd, Toprol XL 50 qd, Zocor 20 qhs, Cardizem CD 180 qd, Diovan 160 qd Added NaCl, free water restrict hyponatremia resolving Na today [address] Thomas
[2019-11-05] MEDS ORDERED: PT OWN MED DRAWER 7, Y5N ONE ×2 (09:56→21:01)
[2019-11-05] MEDS: APIXABAN 2.5 MG TABLET PO SCH ×2 (10:01→22:00)
[2019-11-05] MEDS: PANTOPRAZOLE 40 MG TABLET (FP) PO SCH (10:01)
[2019-11-05] MEDS: VALSARTAN 160 MG TABLET (UD) PO SCH (10:01)
[2019-11-05] MEDS: ESCITALOPRAM OXALATE 10 MG TABLET (FP) PO SCH (10:01)
[2019-11-05] MEDS: SODIUM CHLORIDE 1 GM TABLET PO SCH ×2 (10:01→22:00)
[2019-11-05] MEDS: predniSONE 5 MG TABLET (UD) PO SCH (10:01)
--- NOTE | 2019-11-05 10:47 | PN ---
Progress Note (short form) - Note Progress Note: s/p TMA pod #2 less pain then before the surgery Vital Signs Period Temp Pulse Resp BP Sys/Ying Pulse Ox Last 24 Hr 97.8 F-98.0 F 64-80 18-20 122-144/61-70 cor-rrr lungs clear abd soft,nt ext dry gangrene right foot first 3 toes left foot TMA incision intact, no erythema, no drainage CBC, BMP 11/05/19 05:30 11/05/19 05:30 imp/reccd s/p left foot TMA- pod #2- incision clean and dry will d/w podiatry whether further antibiotics are needed have paged the regulatory affairs internship severe PVD RA pain management Problem List - Problems (1) PVD (peripheral vascular disease) Code(s): I73.9 - PERIPHERAL VASCULAR DISEASE, UNSPECIFIED (2) Rheumatoid arthritis Code(s): M06.9 - RHEUMATOID ARTHRITIS, UNSPECIFIED Qualifiers: Rheumatoid arthritis location: unspecified site
--- NOTE | 2019-11-05 17:18 | PN ---
Progress Note (short form) - Note Progress Note: Subjective: no fever or chills. has painin foot again . L and R. no SOB Objective: Vital Signs: Last Vital Signs Temp Pulse Resp BP Pulse Ox 98.0 F 73 20 135/63 93 L 11/05/19 14:00 11/05/19 14:00 11/05/19 14:00 11/05/19 14:00 11/05/19 09:00 Laboratory Results - last 24 hr 11/04/19 11/05/19 11/05/19 16:19 05:30 05:30 WBC 15.1 H 13.5 H RBC 3.54 L 3.20 L Hgb 10.4 L 9.5 L Hct 33.1 29.4 L MCV 93.6 92.0 MCH 29.5 29.9 MCHC 31.5 L 32.5 RDW 16.0 H 15.8 H Plt Count 399 377 MPV 6.7 L 6.7 L Sodium 135 L Potassium 3.9 Chloride 99 Carbon Dioxide 32 Anion Gap 4 L BUN 18.8 H Creatinine 0.4 L Est GFR (CKD-EPI)AfAm 107.03 Est GFR (CKD-EPI)NonAf 92.34 Random Glucose 93 Calcium 8.5 Total Bilirubin 0.3 AST 20 ALT 18 Alkaline Phosphatase 69 Total Protein 4.6 L Albumin 2.3 L Physical Exam: NAD, awake, alert, cooperative. CV: RRR, 3/6 SM at LLSB, [place], and RUSB. No radiation. Lungs: CTAB Ext: no edema on legs. L foot wound is clean and dry. no erythema . R foot with black tip of 1,2,3 toes and a small area on medial tip of the 4th foot ASSESSMENT AND PLAN: 89 y/o lady with h/o PVD, HTN, remote DVT, HLP, esophageal ulcer, IBS, paroxysmal AF,s/p angioplasty, and anemia who presented after being sent bt Dr. Goodwin for TMT amputation. 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 s/p TMA of L side. POD 2 - d/w Dr. Juárez. L foot does not need Abx as amputation was way beyond the affected areas and the margins were clean. case was d/w Dr. Baez. dc Abx - Adjust pain regimen : dc morphine, add oxy 7.5 for severe pain, oxy 5 mg fro mild pain . make tylenol standing - PT - minimal weight baring on L heel - Dr. Goodwin service contacted, so wound could be evaluated 2- H/o HTN, paroxysmal A fib: - cont cardizem, metoprolol. - cont eliquis. 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 - cont salt tab and fluid restriction . Na 135 today - will ask renal if salt tablet shoud be decreased or stopped 4- Remote H/o DVT: - cont eliquis 5- Cont predniosne. resume her home dose now family is not sure of indication of predniosne and MTX HLOC possible dc tomorrow Visit type - Emergency Visit Emergency Visit: Yes ED Registration Date: 10/31/19 Care time: The patient presented to the Emergency Department on the above date and was hospitalized for further evaluation of their emergent condition. - New Patient This patient is new to me today: No - Critical Care Critical Care patient: No
[2019-11-05] MEDS: oxyCODONE HCL 5 MG TABLET PO ONE (17:22)
[2019-11-05] MEDS: ACETAMINOPHEN 325 MG TABLET (FP) PO SCH (17:23)
--- NOTE | 2019-11-05 19:12 | PN ---
Progress Note, Physician History of Present Illness: Pt seen and examined at bedside. She is awake and alert. SHe denies shortness of breath. - Current Medication List Current Medications: Active Medications Acetaminophen (Tylenol -) 650 mg PO Q6HPO [facility] Last Admin: 11/05/19 17:23 Dose: 650 mg Apixaban (Eliquis -) 2.5 mg PO BID [facility] Last Admin: 11/05/19 10:01 Dose: 2.5 mg Atorvastatin Calcium (Lipitor -) 10 mg PO HS [facility] Last Admin: 11/04/19 21:23 Dose: 10 mg Diltiazem HCl (Cardizem Cd -) 180 mg PO DAILY [facility] Last Admin: 11/05/19 10:01 Dose: 180 mg Docusate Sodium (Colace -) 100 mg PO BID PRN PRN Reason: CONSTIPATION Escitalopram Oxalate (Lexapro -) 20 mg PO DAILY [facility] Last Admin: 11/05/19 10:01 Dose: 20 mg Gabapentin (Neurontin -) 300 mg PO TID [facility] Last Admin: 11/05/19 13:07 Dose: 300 mg Metoprolol Succinate (Toprol Xl -) 50 mg PO HS [facility] Last Admin: 11/04/19 21:23 Dose: 50 mg Non-Formulary Medication (Teriparatide [Forteo]) 0.8 ml SQ ACBK [facility] Last Admin: 11/05/19 07:17 Dose: 0.8 ml Oxycodone HCl (Roxicodone -) 5 mg PO Q4H PRN PRN Reason: PAIN LEVEL 1-5 Last Admin: 11/05/19 14:08 Dose: 5 mg Oxycodone HCl (Roxicodone -) 7.5 mg PO Q4H PRN PRN Reason: PAIN LEVEL 6-10 Pantoprazole Sodium (Protonix -) 40 mg PO DAILY [facility] Last Admin: 11/05/19 10:01 Dose: 40 mg Prednisone (Deltasone -) 2.5 mg PO DAILY [facility] Last Admin: 11/05/19 10:01 Dose: 2.5 mg Sodium Chloride (Sodium Chloride Tablet -) 1 gm PO BID [facility] Last Admin: 11/05/19 10:01 Dose: 1 gm Valsartan (Diovan -) 160 mg PO DAILY [facility] Last Admin: 11/05/19 10:01 Dose: 160 mg - Objective Vital Signs: Vital Signs Temperature 98.0 F 11/05/19 14:00 Pulse Rate 73 11/05/19 14:00 Respiratory Rate 20 11/05/19 14:00 Blood Pressure 135/63 11/05/19 14:00 O2 Sat by Pulse Oximetry (%) 93 L 11/05/19 09:00 Constitutional: Yes: Calm Eyes: Yes: Conjunctiva Clear HENT: Yes: Atraumatic Neck: Yes: Supple Cardiovascular: Yes: S1, S2 Respiratory: Yes: CTA Bilaterally Gastrointestinal: Yes: Soft Genitourinary: Yes: WNL Musculoskeletal: Yes: WNL Edema: No Wound/Incision: Yes: Dressing Dry and Intact Neurological: Yes: Oriented Psychiatric: Yes: Oriented Labs: CBC, BMP 11/05/19 05:30 11/05/19 05:30 INR, PTT INR 1.44 (0.83-1.09) H 11/01/19 07:48 Problem List - Problems (1) Hyponatremia Code(s): E87.1 - HYPO-OSMOLALITY AND HYPONATREMIA (2) Ischemia Code(s): I99.8 - OTHER DISORDER OF CIRCULATORY SYSTEM (3) PVD (peripheral vascular disease) Code(s): I73.9 - PERIPHERAL VASCULAR DISEASE, UNSPECIFIED Assessment/Plan Current Medications Generic Name Dose Route Start Last Admin Trade Name Freq PRN Reason Stop Dose Admin Acetaminophen 650 mg 11/05/19 18:00 11/05/19 17:23 Tylenol - PO 650 mg Q6HPO [facility] Administration Apixaban 2.5 mg 11/03/19 22:00 11/05/19 10:01 Eliquis - PO 2.5 mg BID [facility] Administration Atorvastatin Calcium 10 mg 11/03/19 22:00 11/04/19 21:23 Lipitor - PO 10 mg HS [facility] Administration Diltiazem HCl 180 mg 11/04/19 10:00 11/05/19 10:01 Cardizem Cd - PO 180 mg DAILY [facility] Administration Docusate Sodium 100 mg 11/03/19 20:24 Colace - PO BID PRN CONSTIPATION Escitalopram Oxalate 20 mg 11/04/19 10:00 11/05/19 10:01 Lexapro - PO 20 mg DAILY [facility] Administration Gabapentin 300 mg 11/03/19 22:00 11/05/19 13:07 Neurontin - PO 300 mg TID [facility] Administration Metoprolol Succinate 50 mg 11/03/19 22:00 11/04/19 21:23 Toprol Xl - PO 50 mg HS [facility] Administration Non-Formulary Medication 0.8 ml 11/04/19 07:00 11/05/19 07:17 Teriparatide [Forteo] SQ 0.8 ml ACBK [facility] Administration Oxycodone HCl 5 mg 11/03/19 20:24 11/05/19 14:08 Roxicodone - PO 5 mg Q4H PRN Administration PAIN LEVEL 1-5 Oxycodone HCl 7.5 mg 11/05/19 17:09 Roxicodone - PO Q4H PRN PAIN LEVEL 6-10 Pantoprazole Sodium 40 mg 11/04/19 10:00 11/05/19 10:01 Protonix - PO 40 mg DAILY [facility] Administration Prednisone 2.5 mg 11/05/19 10:00 11/05/19 10:01 Deltasone - PO 2.5 mg DAILY [facility] Administration Sodium Chloride 1 gm 11/03/19 22:00 11/05/19 10:01 Sodium Chloride Tablet - PO 1 gm BID [facility] Administration Valsartan 160 mg 11/04/19 10:00 11/05/19 10:01 Diovan - PO 160 mg DAILY [facility] Administration Impression 1. hyponatremia 2. PVD 3. HTN 4. HLD 5. DVT 6. anemia Plan - sodium continues to improve - cont salt tabs - wound care - can see in office - free water restriction
[2019-11-05] MEDS ORDERED: MELATONIN 5 MG TABLETS PO ONE (21:13)
[2019-11-05] MEDS: ATORVASTATIN CA 10 MG TABLET (FP) PO SCH (22:00)
[2019-11-06] MEDS: ACETAMINOPHEN 325 MG TABLET (FP) PO SCH ×3 (00:37→13:13)
[2019-11-06] MEDS: oxyCODONE HCL 5 MG TABLET PO PRN ×2 (02:38→14:22)
[2019-11-06] MEDS: TERIPARATIDE SQ SCH (06:30)
[2019-11-06] MEDS: GABAPENTIN 300 MG CAPSULE (FP) PO SCH ×2 (06:31→13:14)
[2019-11-06 08:52] LABS: BASO % 0.6 % (0-2.0); EOS % 1.2 % (0-4.5); HEMATOCRIT 32.7 % (32.4-45.2); HEMOGLOBIN 10.8 GM/dL (10.7-15.3); LYMPH % 23.4 % (8-40); MCH 30.6 pg (25.7-33.7); MEAN CELL VOLUME 92.9 fl (80-96); MEAN PLT VOLUME 6.5 fl (7.5-11.1); NEUT % 64.8 % (42.8-82.8); PLATELET COUNT 408 K/MM3 (134-434); RBC 3.52 M/mm3 (3.60-5.2); RDW 16.2 % (11.6-15.6); WHITE BLOOD COUNT 10.6 K/mm3 (4.0-10.0)
--- NOTE | 2019-11-06 09:04 | PN ---
Progress Note, Physician History of Present Illness: Left TMA incisional wound discomfort. - Current Medication List Current Medications: Active Medications Acetaminophen (Tylenol -) 650 mg PO Q6HPO [facility] Last Admin: 11/06/19 06:31 Dose: 650 mg Apixaban (Eliquis -) 2.5 mg PO BID [facility] Last Admin: 11/05/19 22:00 Dose: 2.5 mg Atorvastatin Calcium (Lipitor -) [address] [facility] Last Admin: 11/05/19 22:00 Dose: 10 mg Diltiazem HCl (Cardizem Cd -) 180 mg PO DAILY [facility] Last Admin: 11/05/19 10:01 Dose: 180 mg Docusate Sodium (Colace -) 100 mg PO BID PRN PRN Reason: CONSTIPATION Escitalopram Oxalate (Lexapro -) 20 mg PO DAILY [facility] Last Admin: 11/05/19 10:01 Dose: 20 mg Gabapentin (Neurontin -) 300 mg PO TID [facility] Last Admin: 11/06/19 06:31 Dose: 300 mg Metoprolol Succinate (Toprol Xl -) [address] [facility] Last Admin: 11/05/19 22:01 Dose: 50 mg Non-Formulary Medication (Teriparatide [Forteo]) 0.8 ml SQ ACBK [facility] Last Admin: 11/06/19 06:30 Dose: 0.8 ml Oxycodone HCl (Roxicodone -) 5 mg PO Q4H PRN PRN Reason: PAIN LEVEL 1-5 Last Admin: 11/05/19 14:08 Dose: 5 mg Oxycodone HCl (Roxicodone -) 7.5 mg PO Q4H PRN PRN Reason: PAIN LEVEL 6-10 Last Admin: 11/06/19 02:38 Dose: 7.5 mg Pantoprazole Sodium (Protonix -) 40 mg PO DAILY [facility] Last Admin: 11/05/19 10:01 Dose: 40 mg Prednisone (Deltasone -) 2.5 mg PO DAILY [facility] Last Admin: 11/05/19 10:01 Dose: 2.5 mg Sodium Chloride (Sodium Chloride Tablet -) 1 gm PO BID [facility] Last Admin: 11/05/19 22:00 Dose: 1 gm Valsartan (Diovan -) 160 mg PO DAILY [facility] Last Admin: 11/05/19 10:01 Dose: 160 mg - Objective Vital Signs: Vital Signs Temperature 98.0 F 11/06/19 02:00 Pulse Rate 68 11/06/19 02:00 Respiratory Rate 11/06/19 02:00 Blood Pressure 128/72 11/06/19 02:00 O2 Sat by Pulse Oximetry (%) 94 L 11/05/19 21:00 Constitutional: Yes: No Distress, Calm, Thin Neck: Yes: Supple Cardiovascular: Yes: Regular Rate and Rhythm Respiratory: Yes: Regular, CTA Bilaterally Gastrointestinal: Yes: Soft, Hypoactive Bowel Sounds Extremities: Yes: Amputation (Left TMA) Edema: No Integumentary: Yes: Other (Right toe dry gangrene) Wound/Incision: Yes: Dressing Dry and Intact Labs: CBC, BMP 11/06/19 07:54 INR, PTT INR 1.44 (0.83-1.09) H 11/01/19 07:48 Problem List - Problems (1) PVD (peripheral vascular disease) Code(s): I73.9 - PERIPHERAL VASCULAR DISEASE, UNSPECIFIED (2) Rheumatoid arthritis Code(s): M06.9 - RHEUMATOID ARTHRITIS, UNSPECIFIED Qualifiers: Rheumatoid arthritis location: unspecified site (3) HTN (hypertension) Code(s): I10 - ESSENTIAL (PRIMARY) HYPERTENSION Qualifiers: Hypertension type: essential hypertension Qualified Code(s): I10 - Essential (primary) hypertension (4) Ischemic pain of left foot Code(s): M79.672 - PAIN IN LEFT FOOT; I99.9 - UNSPECIFIED DISORDER OF CIRCULATORY SYSTEM (5) Paroxysmal atrial fibrillation Code(s): I48.0 - PAROXYSMAL ATRIAL FIBRILLATION (6) Type 2 diabetes mellitus with foot ulcer Code(s): E11.621 - TYPE 2 DIABETES MELLITUS WITH FOOT ULCER; L97.509 - NON- PRESSURE CHRONIC ULCER OTH PRT UNSP FOOT W UNSP SEVERITY Qualifiers: Diabetes mellitus termite technician insulin use: without termite technician use Qualified Code(s): E11.621 - Type 2 diabetes mellitus with foot ulcer; L97.509 - Non- pressure chronic ulcer of other part of unspecified foot with unspecified severity Assessment/Plan 11/01/2019 Echo: Normal LV and RV size and fxn, mod-severe MR, severe TR RVSP 40 -50 mmHg, 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 Stable post op 2. 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 PAF->SR on Eliquis 4. DVT 5. HTN 6. Hyperlipidemia 7. Anemia 8. Rheumatoid arthritis 9. 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 Completed empiric abx course, analgesia as needed 2. Continue Eliquis 2.5 bid 3. ContinueToprol XL 50 qd, Lipitor 10 qhs, Cardizem CD 180 qd, Diovan 160 qd 4. Added NaCl, free water restrict hyponatremia resolving Na today 135
[2019-11-06] MEDS ORDERED: PT OWN MED DRAWER 7, Y5N ONE (09:31)
[2019-11-06] MEDS: VALSARTAN 160 MG TABLET (UD) PO SCH (09:33)
[2019-11-06] MEDS: predniSONE 5 MG TABLET (UD) PO SCH (09:33)
[2019-11-06] MEDS: APIXABAN 2.5 MG TABLET PO SCH (09:33)
[2019-11-06] MEDS: PANTOPRAZOLE 40 MG TABLET (FP) PO SCH (09:33)
[2019-11-06] MEDS: ESCITALOPRAM OXALATE 10 MG TABLET (FP) PO SCH (09:33)
[2019-11-06] MEDS: SODIUM CHLORIDE 1 GM TABLET PO SCH (09:34)
[2019-11-06] MEDS: oxyCODONE HCL 5 MG TABLET PO ONE (09:40)
[2019-11-06 10:05] LABS: BLOOD UREA NITROGEN 18.7 mg/dL (7-18); CALCIUM 8.5 mg/dL (8.5-10.1); CREATININE 0.4 mg/dL (0.55-1.3); POTASSIUM 4.4 mmol/L (3.5-5.1)
--- NOTE | 2019-11-06 13:30 | PN ---
Progress Note (short form) - Note Progress Note: Vascular surgery Dressing changed. Flap looks very healthy. Will dress with xeroform, 4x4, kerlex, jeana. Will follow in office in one week. Betadine to right foot. clear for DC home. Spoke to family Moose Goodwin DO
--- NOTE | 2019-11-06 14:02 | PN ---
Progress Note (short form) - Note Progress Note: s/p TMA pod #3 continued foot pain Vital Signs Period Temp Pulse Resp BP Sys/Ying Pulse Ox Last 24 Hr 98 F-98.2 F 68-70 20-20 121-149/56-72 94-94 cor-rrr lungs clear right foot with dry gangrene first 3 toes, no draiange, no odor left foot dressing change by dr jon- per report incision clean and dry CBC, BMP 11/06/19 07:54 11/06/19 07:54 imp/reccd s/p left foot TMA- pod #3- incision clean and dry antibiotics d/narcisa dry gangrene toes of right foot further management per vascular surgery RA pain management Problem List - Problems (1) PVD (peripheral vascular disease) Code(s): I73.9 - PERIPHERAL VASCULAR DISEASE, UNSPECIFIED (2) Rheumatoid arthritis Code(s): M06.9 - RHEUMATOID ARTHRITIS, UNSPECIFIED Qualifiers: Rheumatoid arthritis location: unspecified site
--- NOTE | 2019-11-06 14:05 | PN ---
Teaching Attending Note Name of Resident: Ac Mohan ATTENDING PHYSICIAN STATEMENT I saw and evaluated the patient. I reviewed the resident's note and discussed the case with the resident. I agree with the resident's findings and plan as documented. SUBJECTIVE: no fever or chills. No KEANE . pain is controlled with current regimen OBJECTIVE: NAD, awake, alert, cooperative. CV: RRR, 3/6 SM at LLSB, [place], and RUSB. No radiation. Lungs: CTAB Ext: no edema on legs. L foot wound is clean and dry. no erythema . R foot with black tip of 1,2,3 toes and a small area on medial tip of the 4th foot ASSESSMENT AND PLAN: 89 y/o lady with h/o PVD, HTN, remote DVT, HLP, esophageal ulcer, IBS, paroxysmal AF,s/p angioplasty, and anemia who presented after being sent bt Dr. Goodwin for TMT amputation. 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 s/p TMA of L side. POD 3 - wound looks healthy . no signs of infection - cont wound care with xeroform, kerlex and EVELINA wrap - cont with oxy at dc - minimal weight baring on L heel 2- H/o HTN, paroxysmal A fib: - cont cardizem, metoprolol. - cont eliquis. 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 -will decrease salt tab to daily along with fluid restriction after dc - f/u with Dr. Persaud as out p t - SIADH w/u including CT scans to look for malignancy as out pt. this was d/w her and her son 4- Remote H/o DVT: - cont eliquis 5- Cont predniosne and MTX at home dose. Family is not sure of indication of predniosne and MTX dc to home with VNS for wound care and PT
--- NOTE | 2019-11-06 14:23 | PN ---
Progress Note, Physician History of Present Illness: Pt seen and examined at bedside. She is awake and alert. She denies headache or change in vision. Her son is at bedside and care was discussed with him. - Current Medication List Current Medications: Active Medications Acetaminophen (Tylenol -) 650 mg PO Q6HPO [facility] Last Admin: 11/06/19 13:13 Dose: 650 mg Apixaban (Eliquis -) 2.5 mg PO BID [facility] Last Admin: 11/06/19 09:33 Dose: 2.5 mg Atorvastatin Calcium (Lipitor -) 10 mg PO HS [facility] Last Admin: 11/05/19 22:00 Dose: 10 mg Diltiazem HCl (Cardizem Cd -) 180 mg PO DAILY [facility] Last Admin: 11/06/19 09:33 Dose: 180 mg Docusate Sodium (Colace -) 100 mg PO BID PRN PRN Reason: CONSTIPATION Escitalopram Oxalate (Lexapro -) 20 mg PO DAILY [facility] Last Admin: 11/06/19 09:33 Dose: 20 mg Gabapentin (Neurontin -) 300 mg PO TID [facility] Last Admin: 11/06/19 13:14 Dose: 300 mg Metoprolol Succinate (Toprol Xl -) 50 mg PO HS [facility] Last Admin: 11/05/19 22:01 Dose: 50 mg Non-Formulary Medication (Teriparatide [Forteo]) 0.8 ml SQ ACBK [facility] Last Admin: 11/06/19 06:30 Dose: 0.8 ml Oxycodone HCl (Roxicodone -) 5 mg PO Q4H PRN PRN Reason: PAIN LEVEL 1-5 Last Admin: 11/05/19 14:08 Dose: 5 mg Oxycodone HCl (Roxicodone -) 7.5 mg PO Q4H PRN PRN Reason: PAIN LEVEL 6-10 Last Admin: 11/06/19 02:38 Dose: 7.5 mg Pantoprazole Sodium (Protonix -) 40 mg PO DAILY [facility] Last Admin: 11/06/19 09:33 Dose: 40 mg Prednisone (Deltasone -) 2.5 mg PO DAILY [facility] Last Admin: 11/06/19 09:33 Dose: 2.5 mg Sodium Chloride (Sodium Chloride Tablet -) 1 gm PO BID [facility] Last Admin: 11/06/19 09:34 Dose: 1 gm Valsartan (Diovan -) 160 mg PO DAILY [facility] Last Admin: 11/06/19 09:33 Dose: 160 mg - Objective Vital Signs: Vital Signs Temperature 98 F 11/06/19 10:00 Pulse Rate 69 11/06/19 10:00 Respiratory Rate 20 11/06/19 10:00 Blood Pressure 149/72 11/06/19 10:00 O2 Sat by Pulse Oximetry (%) 94 L 11/06/19 09:00 Constitutional: Yes: Calm Eyes: Yes: Conjunctiva Clear HENT: Yes: Atraumatic Neck: Yes: Supple Cardiovascular: Yes: S1, S2 Respiratory: Yes: CTA Bilaterally Gastrointestinal: Yes: Soft Genitourinary: Yes: WNL Edema: No Wound/Incision: Yes: Dressing Dry and Intact Neurological: Yes: Oriented Psychiatric: Yes: Oriented Labs: CBC, BMP 11/06/19 07:54 11/06/19 07:54 INR, PTT INR 1.44 (0.83-1.09) H 11/01/19 07:48 Problem List - Problems (1) Hyponatremia Code(s): E87.1 - HYPO-OSMOLALITY AND HYPONATREMIA (2) Ischemia Code(s): I99.8 - OTHER DISORDER OF CIRCULATORY SYSTEM (3) PVD (peripheral vascular disease) Code(s): I73.9 - PERIPHERAL VASCULAR DISEASE, UNSPECIFIED Assessment/Plan Current Medications Generic Name Dose Route Start Last Admin Trade Name Freq PRN Reason Stop Dose Admin Acetaminophen 650 mg 11/05/19 18:00 11/06/19 13:13 Tylenol - PO 650 mg Q6HPO [facility] Administration Apixaban 2.5 mg 11/03/19 22:00 11/06/19 09:33 Eliquis - PO 2.5 mg BID [facility] Administration Atorvastatin Calcium 10 mg 11/03/19 22:00 11/05/19 22:00 Lipitor - PO 10 mg HS [facility] Administration Diltiazem HCl 180 mg 11/04/19 10:00 11/06/19 09:33 Cardizem Cd - PO 180 mg DAILY [facility] Administration Docusate Sodium 100 mg 11/03/19 20:24 Colace - PO BID PRN CONSTIPATION Escitalopram Oxalate 20 mg 11/04/19 10:00 11/06/19 09:33 Lexapro - PO 20 mg DAILY [facility] Administration Gabapentin 300 mg 11/03/19 22:00 11/06/19 13:14 Neurontin - PO 300 mg TID [facility] Administration Metoprolol Succinate 50 mg 11/03/19 22:00 11/05/19 22:01 Toprol Xl - PO 50 mg HS [facility] Administration Non-Formulary Medication 0.8 ml 11/04/19 07:00 11/06/19 06:30 Teriparatide [Forteo] SQ 0.8 ml ACBK [facility] Administration Oxycodone HCl 5 mg 11/03/19 20:24 11/05/19 14:08 Roxicodone - PO 5 mg Q4H PRN Administration PAIN LEVEL 1-5 Oxycodone HCl 7.5 mg 11/05/19 17:09 11/06/19 14:22 Roxicodone - PO 7.5 mg Q4H PRN Administration PAIN LEVEL 6-10 Pantoprazole Sodium 40 mg 11/04/19 10:00 11/06/19 09:33 Protonix - PO 40 mg DAILY [facility] Administration Prednisone 2.5 mg 11/05/19 10:00 11/06/19 09:33 Deltasone - PO 2.5 mg DAILY [facility] Administration Sodium Chloride 1 gm 11/03/19 22:00 11/06/19 09:34 Sodium Chloride Tablet - PO 1 gm BID [facility] Administration Valsartan 160 mg 11/04/19 10:00 11/06/19 09:33 Diovan - PO 160 mg DAILY [facility] Administration Impression 1. hyponatremia 2. PVD 3. HTN 4. HLD 5. DVT 6. anemia Plan - sodium has stabilized at 135 - cont salt tabs - restrict free water - recommend ct scans, discussed with pt and her son, however patient does not want any more testing at this time - wound care - can see in office
[2019-11-06 15:05] VITALS: BP 110/58; PULSE 76; TEMP 98.1
--- NOTE | 2019-11-06 17:36 | DS ---
Physical Exam: SUBJECTIVE: Patient seen and examined OBJECTIVE: Vital Signs Period Temp Pulse Resp BP Sys/Ying Pulse Ox Last 24 Hr 98 F-98.2 F 68-76 20-20 110-149/56-72 94-94 PHYSICAL EXAM GENERAL: The patient is awake, alert, and fully oriented, in no acute distress. HEAD: Normal with no signs of trauma. EYES: PERRL, extraocular movements intact, sclera anicteric, conjunctiva clear. ENT: Ears normal, nares patent, oropharynx clear without exudates, moist mucous membranes. NECK: Trachea midline, full range of motion, supple. LUNGS: Breath sounds equal, clear to auscultation bilaterally, no wheezes, no crackles, no accessory muscle use. HEART: Regular rate and rhythm, S1, S2 without murmur, rub or gallop. ABDOMEN: Soft, nontender, nondistended, normoactive bowel sounds, no guarding, no rebound, no hepatosplenomegaly, no masses. EXTREMITIES: 2+ pulses, warm, well-perfused, no edema. NEUROLOGICAL: Cranial nerves II through XII grossly intact. Normal speech, gait not observed. PSYCH: Normal mood, normal affect. SKIN: Warm, dry, normal turgor, no rashes or lesions noted. LABS Laboratory Results - last 24 hr 11/06/19 11/06/19 07:54 07:54 WBC 10.6 H RBC 3.52 L Hgb 10.8 Hct 32.7 MCV 92.9 MCH 30.6 MCHC 33.0 RDW 16.2 H Plt Count 408 MPV 6.5 L Absolute Neuts (auto) 6.9 Neutrophils % 64.8 Lymphocytes % 23.4 Monocytes % 10.0 Eosinophils % 1.2 Basophils % 0.6 Nucleated RBC % 0 Sodium 135 L Potassium 4.4 Chloride 99 Carbon Dioxide 34 H Anion Gap 3 L BUN 18.7 H Creatinine 0.4 L Est GFR (CKD-EPI)AfAm 107.03 Est GFR (CKD-EPI)NonAf 92.34 Random Glucose 78 Calcium 8.5 HOSPITAL COURSE: Date of Admission:10/31/19 Date of Discharge: 11/06/19 Discharge Summary Problems reviewed: Yes Reason For Visit: ISCHEMIC PAIN OF LEFT FOOT Current Active Problems Hyponatremia (Chronic) Ischemia (Chronic) PVD (peripheral vascular disease) (Chronic) Rheumatoid arthritis (Chronic) Rheumatoid arthritis (Chronic) Condition: Improved - Instructions Diet, Activity, Other Instructions: YOUR VISIT You came to the hospital because you were feeling foot pain ( ischemia) . You were admitted to the hospital for care of this problem. While here, you were seen by a vascular surgeon, veterinarian epidemiologist, architectural practice manager, and an infectious disease specialist. A transmetatarsal amputation was performed on your left foot. 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 You are now stable and may return home. MEDICATIONS Please continue to take your medications as prescribed. For mild pain pain, you may take 650mg of Tylenol by mouth everyday 6 hours. Maximum daily dose is 4000mg within 24 hours. For severe pain you may continue to take your Oxycodone 5mg every six hours, as needed. Maximum daily dose is 20mg. Please follow up in wound care clinic for care of your left foot. Till then, you left foot should be dressed with xeroform, 4x4 gauze, kerlex, and jeana bandage daily. Please also care for your RIGHT foot with Betadine daily MEDICATION CHANGES - Please take Eliquis 2.5 mg by mouth twice a day ( instead of 5 mg twice a day ) - Atorvastatin 10 mg by mouth every night NEW MEDICATION - Sodium chloride tab 1 gram by mouth daily AND FLUID RESTRICTION: Be sure to drink no more than 800 milliliters of fluid per day. ADDITIONAL CARE Please make an appointment to see your primary care provider, Dr. Hernandez, 2 week from today. Please follow up with your vascular surgeon 1 week from today. A referral to Dr. Goodwin has been provided. Please follow up with Front Desk Attendant within one week of discharge. A referral to Dr. Loya has been provided. please see him in 1 week. Please make an appointment to see a architectural practice manager in 2 week. A referral has to Dr. Thomas has been provided. Please make an appointment to see a veterinarian epidemiologist in 1 week. A referral has to Dr. Daniels has been provided. ADDITIONAL INFORMATION Please call 911 or come directly to the emergency department if you experience unusual headache, vision change, shortness of breath, chest pain, numbness, tingling, loss of alertness/awareness, loss of function, unusual bleeding or any alarming symptoms. You need blood work ( CBC, and BMP ) in 1 week. please ask your primary doctor to perform. Referrals: Easton Loya MD [Staff Physician] - 1 Week Guillaume Hernandez MD [Primary Care Provider] - 2 Weeks Moose Goodwin DO [Staff Physician] - 1 Week Luis Daniels MD [Staff Physician] - 1 Week Rogelio Thomas MD [Staff Physician] - 2 Weeks Disposition: HOME - Home Medications Comprehensive Discharge Medication List: Ambulatory Orders Pantoprazole Sodium [Protonix -] 40 mg PO DAILY 03/06/14 Methotrexate [Mexate -] 7 tab PO Q7D 09/22/17 Teriparatide [Forteo] 0.8 ml SQ DAILY 09/14/19 Valsartan [Diovan] 160 mg PO DAILY tablet 09/26/19 Diltiazem HCl [Cartia Xt] 180 mg PO DAILY 10/31/19 Gabapentin [Neurontin -] 1 cap PO TID 10/31/19 Carbidopa/Levodopa *Cr* 25/100 [Sinemet *Cr* 25/100 -] 1 tab PO TID 11/01/19 Escitalopram Oxalate [Lexapro -] 1 tab PO DAILY 11/01/19 Metoprolol Succinate [Toprol Xl] 1 tab PO HS 11/01/19 Pramipexole Dihydrochloride [Mirapex -] 1 tab PO DAILY 11/01/19 predniSONE [Deltasone -] 2.5 mg PO DAILY 11/01/19 Acetaminophen [Acetaminophen ER] 650 mg PO Q6H 30 Days #120 tablet.er 11/06/19 Apixaban [Eliquis] 5 mg PO BID #30 tablet 11/06/19 Atorvastatin Ca [Lipitor] 10 mg PO HS 30 Days #30 tablet 11/06/19 Sodium Chloride Tablet - 1 gm PO DAILY 14 Days #14 tablet 11/06/19 ATTENDING PHYSICIAN STATEMENT I saw and evaluated the patient. I reviewed the resident's note and discussed the case with the resident. I agree with the resident's findings and plan as documented. SUBJECTIVE: OBJECTIVE: ASSESSMENT AND PLAN:
--- NOTE | 2019-11-07 07:22 | OP ---
DATE OF OPERATION: 11/03/2019 PREOPERATIVE DIAGNOSIS: Left foot forefoot gangrene. POSTOPERATIVE DIAGNOSIS: Left foot forefoot gangrene. PROCEDURE PERFORMED: Left foot transmetatarsal amputation. SURGEON: Sharan Juárez DPM RESIDENT SERVICES COORDINATOR: Moose Goodwin DO ANESTHESIA: General sedation with popliteal block. DRAINS: None. PATHOLOGY: None. INDICATIONS: This patient is an 89-year-old female with the above mentioned diagnosis. The patient has exhausted all forms of conservative treatment and requires surgical intervention for the conditions listed above. The patient has undergone multiple angioplasties on the left leg to give the patient the best possible chance for healing. This was all discussed with the patient. All of the patient's concerns and questions were addressed, and complications were also addressed. DESCRIPTION OF PROCEDURE: Prior to taking the patient to the OR, n.p.o. status was verified. Consent was signed, and the patient was brought to the operating room. The patient was brought to the operating room and placed on the operating table in the supine position. No tourniquet was utilized for this procedure. Following general sedation, the left foot was prepped and draped in the normal sterile manner and the procedure begun. Procedure No. 1: Left foot transmetatarsal amputation. Attention was directed to the dorsal aspect of the patient's left foot where there were noted to be dorsal gangrenous changes to the entire forefoot of the left foot. At this time, using a No. 15 blade, a fish mouth-type incision was made starting from the dorsal aspect of the patient's left foot, 0.5 cm distal to the transmetatarsal articulation, to allow for a very proximal removal of the bone and to allow for the best chance to heal. The incision was then carried across the dorsal aspect and then a fish mouth around the lateral medial aspects of the foot and down to the level of the metatarsophalangeal joints. At this time, going from plantar, the metatarsophalangeal joints were disarticulated and the dorsal aspect of the foot was removed. All metatarsals were exposed in the operative. At this time, utilizing the sagittal saw, the 1st through 5th metatarsal shafts were transected and passed from the operative field. All of this was sent for pathology. The transection, like I said, was very proximal, just distal to the metatarsocuneiform joints, to allow for the best chance to heal. At this time the flap was assessed. There was noted to be some level of bleeding throughout the case but not a tremendous amount, as would be expected, but it does give me good hopes that there is a chance for the healing of the flap. The flap seemed to be in good condition. All tendons were retracted and cut as proximal as possible, and the plantar plate area was removed and passed from the operative field. The wound was flushed with normal amounts of normal sterile saline. The flap was then brought dorsally, across the aspect of the foot. The incision site was then closed with 3-0 Vicryl and 3-0 nylon in a normal sterile manner. The flap came together quite nicely, and there were no areas of dehiscence or areas that could not be closed at this time. The wound was then dressed with Xeroform, dry sterile dressing. POSTOPERATIVE CONDITION: The patient tolerated anesthesia and procedure well, and was transferred to the recovery room with vital signs stable and neurovascular status intact to the left foot. The patient will follow up with me on the , as previously discussed with the patient. BRENDAN AMIN/[id number]
--- NOTE | 2019-11-07 14:36 | PATH ---
Surgical Pathology Report Patient Name: ALEXANDRIA ARRIOLA [facility]. Rec. #: [id number] /Age/Gender: 1930 (Age: 89) / F Account: [id number] Location: [facility] MED/SURG Taken: 11/03/2019 Received: 11/06/2019 Reported: 11/07/2019 Physicians: BRENDAN Machado M.D. Specimen(s) Received LEFT FOOT TRANSMETARSAL Clinical History Gangrenous left foot Final Diagnosis FOOT, LEFT, TRANSMETATARSAL AMPUTATION: FOREFOOT WITH GANGRENOUS NECROSIS INVOLVING ALL DIGITS, UNDERLYING BONE, AND SOFT TISSUE MARGINS. ACUTE OSTEOMYELITIS WITH MILD PATCHY INVOLVEMENT OF SEPARATELY SUBMITTED BONE FRAGMENTS CONSISTENT WITH TRUE SURGICAL MARGIN. Electronically Signed Katharina Moscoso M.D. Gross Description Received in formalin labeled "left foot transmetatarsal," is a 9.3 x 8.4 x 2.7 cm transmetatarsal amputation specimen. All 5 digits display a sylvester-black, gangrenous lesion extending to and involving the underlying bone. The lesion possibly involves the skin and soft tissue margin. Separately received within the same container are 5 additional portions of bone ranging from 2.5 x 1.3 x 1.3 cm to 3.5 x 2.5 x 1.7 cm, consistent with the true bone margins. The separately received bones display smooth trabecular bone at one end and smooth articular cartilage at the opposing end. Also separately received within the same container is a 6.0 x 5.2 x 1.0 cm aggregate ch soft tissue fragments. It Architecture Consultant sections are submitted in 8 cassettes as follows: 1-lesion with underlying bone, following decalcification; 2-skin and soft tissue margin; 3-bone margin from the largest separately received bone, following decalcification; 4-7-bone margins from remaining separately received bones, following decalcification; 8-sections from separately received soft tissue fragments. /11/06/2019 saudi11/06/2019
== END 2019-11-06 17:43 | disposition home or self-care (01) | DRG 240 ==
LOC: JER 14:49 → JERBED 16:14 → J8W 21:52
PROVIDERS: ADMIT Internal Medicine; ATTEND Internal Medicine
PROC: 0Y6N0ZB Detachment at Left Foot, Partial 2nd Ray, Open Approach (ICD-10-PCS; 2019-11-03)
PROC: 0Y6N0ZC Detachment at Left Foot, Partial 3rd Ray, Open Approach (ICD-10-PCS; 2019-11-03)
PROC: 0Y6N0ZD Detachment at Left Foot, Partial 4th Ray, Open Approach (ICD-10-PCS; 2019-11-03)
PROC: 0Y6N0ZF Detachment at Left Foot, Partial 5th Ray, Open Approach (ICD-10-PCS; 2019-11-03)
PROC: 0Y6N0Z9 Detachment at Left Foot, Partial 1st Ray, Open Approach (ICD-10-PCS; principal; 2019-11-03 16:30)
DX: I96 Gangrene, not elsewhere classified (principal); E87.1 Hypo-osmolality and hyponatremia; E22.2 Syndrome of inappropriate secretion of antidiuretic hormone; E46 Unspecified protein-calorie malnutrition; Z68.1 Body mass index [BMI] 19.9 or less, adult; I73.9 Peripheral vascular disease, unspecified; R54 Age-related physical debility; I48.0 Paroxysmal atrial fibrillation; M06.9 Rheumatoid arthritis, unspecified; I10 Essential (primary) hypertension; E78.5 Hyperlipidemia, unspecified; D64.9 Anemia, unspecified; K21.9 Gastro-esophageal reflux disease without esophagitis
CPT/HCPCS: 36415; 71045-TC-FY; 73700-TC-RT; 80048; 80053; 82550; 82565; 83605; 83735; 83930; 83935; 84100; 84300; 84443; 84484; 85025; 85027; 85610; 85730; 86850; 86900; 86901; 88307-TC; 88311-TC; 93005; 93010; 93306-TC; 94760; 97162-GP; 99285-25; G0480; J0131; J7030

== ENCOUNTER 2019-12-01 16:50 | Inpatient (IN) | payer BC ==
--- NOTE | 2019-12-01 18:10 | PDOC ---
History of Present Illness - General Chief Complaint: Pain, Acute Stated Complaint: LEG PAIN Time Seen by Provider: 12/01/19 18:07 History Source: Patient Exam Limitations: No Limitations - History of Present Illness Initial Comments: 12/01/19 18:08 PCP: Guillaume Hernandez Podiatry: Easton Loya Vasc: Moose Goodwin Renal: Luis Daniels Cards: WilliamRogelio HPI: 89yo F PMH GERD, HLD, HTN, DVT on chronic AC (eliquis), severe PVD s/p LLE angioplasty,s/p L TMA on 11/03. Pt c/o worsening bilateral foot pain. Family reports patient is on oxycontin 10mg BID, with oxycodone 10mg for breakthrough pain, and that these medications have not helped her control her pain since last night. No fevers or chills per son. Not currently on abx. Dressings have been changed by visiting nursing. Dr. Goodwin stopped by bedside, told family he would order morphine and plan for Angiography and surgical planing on Wednesday / Wednesday. All: NKDA Meds: Per chart PMH: PVD PSH: L foot TMA 11/03 Past History - Travel Traveled outside of the country in the last 30 days: No Close contact w/someone who was outside of country & ill: No - Past Medical History Allergies/Adverse Reactions: Allergies Allergy/AdvReac Type Severity Reaction Status Date / Time No Known Allergies Allergy Verified 12/01/19 16:56 Home Medications: Ambulatory Orders Pantoprazole Sodium [Protonix -] 40 mg PO DAILY 03/06/14 Methotrexate [Mexate -] 7 tab PO Q7D 09/22/17 Teriparatide [Forteo] 0.8 ml SQ DAILY 09/14/19 Valsartan [Diovan] 160 mg PO DAILY tablet 09/26/19 Diltiazem HCl [Cartia Xt] 180 mg PO DAILY 10/31/19 Gabapentin [Neurontin -] 1 cap PO TID 10/31/19 Carbidopa/Levodopa *Cr* 25/100 [Sinemet *Cr* 25/100 -] 1 tab PO TID 11/01/19 Escitalopram Oxalate [Lexapro -] 1 tab PO DAILY 11/01/19 Metoprolol Succinate [Toprol Xl] 1 tab PO HS 11/01/19 Pramipexole Dihydrochloride [Mirapex -] 1 tab PO DAILY 11/01/19 predniSONE [Deltasone -] 2.5 mg PO DAILY 11/01/19 Acetaminophen [Acetaminophen ER] 650 mg PO Q6H 30 Days #120 tablet.er 11/06/19 Apixaban [Eliquis] 5 mg PO BID #30 tablet 11/06/19 Atorvastatin Ca [Lipitor] 10 mg PO HS 30 Days #30 tablet 11/06/19 Oxycodone HCl 5 mg PO Q6H PRN #15 tablet MDD 4 tab 11/06/19 Sodium Chloride Tablet - 1 gm PO DAILY 14 Days #14 tablet 11/06/19 Anemia: Yes Asthma: No Cancer: No Cardiac Disorders: Yes (h/o blood clot) CVA: No COPD: No CHF: Yes DVT: No Dementia: No Diabetes: No Dialysis: No GI Disorders: Yes (irriitable bowel syndrome) Disorders: No HTN: Yes Hypercholesterolemia: No Kidney Stones: No Liver Disease: No Psychiatric Problems: No Seizures: No Thyroid Disease: No Lung CA: No - Surgical History Abdominal Surgery: No Appendectomy: No Cardiac Surgery: No Cholecystectomy: No Gastric Stapling: No GI Surgery: No Lung Surgery: No Neurologic Surgery: Yes (SPINAL FUSION; LAMINECTOMY, Kyphoplasty) Orthopedic Surgery: Yes (LT CARPAL TUNNEL) - Immunization History Immunization Up to Date: Yes - Psycho Social/Smoking Cessation Hx Smoking Status: Yes Smoking History: Never smoked Have you smoked in the past 12 months: No Number of Cigarettes Smoked Daily: 0 If you are a former smoker, when did you quit?: 50 years ago Information on smoking cessation initiated: No Hx Alcohol Use: No Drug/Substance Use Hx: No Substance Use Type: None Hx Substance Use Treatment: No Review of Systems - Review of Systems Able to Perform ROS?: Yes Is the patient limited Belarusian proficient: Yes Constitutional: No: Chills, Fever HEENTM: No: Nose Congestion, Throat Pain Respiratory: No: Cough, Shortness of Breath Cardiac (ROS): No: Chest Pain, Palpitations, Chest Tightness ABD/GI: No: Constipated, Diarrhea, Nausea, Vomiting Musculoskeletal: No: Muscle Pain, Muscle Weakness Integumentary: No: Pallor, Pruritus, Rash Neurological: No: Headache, Numbness, Tingling, Weakness Psychiatric: No: Stressors, Change in Appetite Endocrine: No: Increased Thirst, Increased Urine Hematologic/Lymphatic: No: Anemia, Blood Clots, Easy Bleeding All Other Systems: Reviewed and Negative *Physical Exam - Vital Signs Last Vital Signs Temp Pulse Resp BP Pulse Ox 98.4 F 96 H 24 H 142/68 96 12/01/19 17:14 12/01/19 17:14 12/01/19 17:14 12/01/19 17:14 12/01/19 17:14 - Physical Exam 12/01/19 20:10 Vitals reviewed, AFVSS GEN: Well appearing, appears stated age, NAD, comfortable. AAOx3. HEENT: NCAT, EOMI, PERRL. Sclera anicteric, noninjected. No facial asymmetry. Moist mucous membranes. Normal voice. Trachea midline. CV: RRR, S1/S2, no murmurs / rubs / gallops appreciated. LUNG: CTAB, normal work of breathing. No wheezes, rales, rhonchi. No cough. Speaking full sentences. GI: Soft, NTND, +BS, no guarding, no rebound. No masses. Neg CVAT b/l. EXTREMITIES: 2+ distal pulses. No LE edema. No obvious deformities of all extremities. SKIN: RLE with dark toes, cellulitits extending to the mid-barnes, warm, erythematous. LLE with serosanguinous drainage. PSYCH: Normal mood and affect. Cooperative and appropriate. NEURO: CN grossly intact. Moving all extremities well. Normal strength and sensation grossly. ED Treatment Course - LABORATORY CBC & Chemistry Diagram: 12/01/19 18:35 12/01/19 18:35 Medical Decision Making - Medical Decision Making 12/01/19 18:46 89yo F PMH GERD, HLD, HTN, DVT on chronic AC (eliquis), severe PVD s/p LLE angioplasty, s/p L TMA on 11/03. Pt c/o worsening bilateral foot pain. DDX: Ischemia, Cellulitis. - CBC, CMP - EKG - Morphine ordered by Dr. Goodwin 12/01/19 19:16 - Pain uncontrolled with 2mg morphine 12/01/19 19:51 - 1g Ofirmev - 2mg Morphine 12/01/19 20:26 - Leukocytosis c/w cellulitis on exam - Vanc / Zosyn ordered Dispo: Admit 12/01/19 20:59 - Sign-out given to Dr. Ross Arana, PGY-1 12/01/19 21:04 - EK, NSR, normal axis, QTc 445, no ischemic changes noted Discharge - Discharge Information Problems reviewed: Yes Clinical Impression/Diagnosis: PVD (peripheral vascular disease), Foot pain, bilateral, Intractable pain Cellulitis Qualifiers: Site of cellulitis: extremity Site of cellulitis of extremity: lower extremity Laterality: right Qualified Code(s): L03.115 - Cellulitis of right lower limb Condition: Guarded - Admission Yes - Follow up/Referral Referrals: Guillaume Hernandez MD [Primary Care Provider] - - Patient Discharge Instructions - Post Discharge Activity
[2019-12-01] MEDS ORDERED: MORPHINE SULFATE 2 MG/ML VIAL ONE ×2 (18:40→20:25)
[2019-12-01] MEDS: MORPHINE SULFATE 2 MG/ML VIAL IVPUSH PRN (18:44)
[2019-12-01 19:35] LABS: BASO % 0.3 % (0-2.0); EOS % 0.1 % (0-4.5); HEMATOCRIT 30.8 % (32.4-45.2); LYMPH % 9.4 % (8-40); MCH 29.3 pg (25.7-33.7); MCHC 32.6 g/dl (32.0-36.0); MEAN CELL VOLUME 90.1 fl (80-96); MEAN PLT VOLUME 7.3 fl (7.5-11.1); MONO % 6.3 % (3.8-10.2); NEUT % 83.9 % (42.8-82.8); PLATELET COUNT 495 K/MM3 (134-434); RBC 3.42 M/mm3 (3.60-5.2); RDW 16.5 % (11.6-15.6); WHITE BLOOD COUNT 17.7 K/mm3 (4.0-10.0)
[2019-12-01] MEDS ORDERED: HYDROmorphone HCL CARPU-JECT 2 MG/1 ML DISP.SYRIN IVPUSH ONE (19:41)
[2019-12-01] MEDS ORDERED: SODIUM CHLORIDE 0.9% 500 ML INFUS.BAG IV ONE (19:41)
[2019-12-01] MEDS ORDERED: morphine CARPU-JECT 4 MG/1 ML DISP.SYRIN IVPUSH ONE (19:53)
[2019-12-01] MEDS ORDERED: ACETAMINOPHEN 1000 MG/100 ML VIAL (NON FORMULARY) IVPB ONE (19:53)
[2019-12-01 20:01] LABS: ALBUMIN 2.8 g/dl (3.4-5.0); BILIRUBIN,TOTAL 0.6 mg/dL (0.2-1); BLOOD UREA NITROGEN 21.7 mg/dL (7-18); CREATININE 0.6 mg/dL (0.55-1.3); POTASSIUM 5.1 mmol/L (3.5-5.1)
[2019-12-01] MEDS ORDERED: ACETAMINOPHEN INJECTION 100 ML IVPB ONE (20:25)
[2019-12-01] MEDS ORDERED: PIPERACILLIN/TAZOB 3.375 GM 3.375 GM in DEXTROSE 5%-WATER - 50 ML IVPB ONE (20:26)
[2019-12-01] MEDS ORDERED: VANCOMYCIN 1 GM in D5W (PRE-DOCKED) 1,000 MG/250 ML IVPB ONE (20:26)
[2019-12-01] MEDS ORDERED: VANCOMYCIN 1 GRAM (PRE-DOCKED) 1,000 MG/250 ML BAG IVPB ONE (20:46)
[2019-12-01] MEDS ORDERED: PIPERACILLIN/TAZOB 3.375 GM 3.375 GM/50 ML BAG IVPB ONE (20:46)
--- NOTE | 2019-12-01 20:59 | PDOC ---
Attending Attestation - Resident Resident Name: Dioni Ramírez - ED Attending Attestation I have performed the following: I have examined & evaluated the patient, The case was reviewed & discussed with the resident, I agree w/resident's findings & plan - HPI HPI: 12/01/19 20:55 Pt has left TMA; states that she has exquisite pain in the left foot and distal leg; she has known ischemia as per her family. On the right she has 3 dusky/gangrenous toes. She has no fever, however the feet are erythematous. Pt's vascular surgeon came to see her in the ER and ordered morphine and admission for her. - Physicial Exam PE: 12/01/19 20:57 Hear tachy lungs clear; low pulsox due to chronic COPD abd soft NT ND no rashes No fever Pt has no calf swelling RLE erythematous leg and foot LLE erythematous foot No foul ododr of pseudomonas. - Medical Decision Making 12/01/19 20:59 Pt will be treated with zosyn and vancomycin and she will get IV hydration and pain mamagement. She has been admitted to the hospitalist team.
--- NOTE | 2019-12-01 21:49 | HP ---
PCP: Dr. Castro PCP: Guillaume Hernandez Podiatry: Easton Loya Vasc: Moose Goodwin Renal: Luis Daniels Cards: Dr. Steve Fox HISTORY OF PRESENT ILLNESS: This is an 89 y/o F with a PMHx of HTN, GERD, HLD, DVT on chronic AC (eliquis), severe PVD s/p LLE angioplasty, s/p Lt TMA on 11/03 presenting with b/l leg pain. Pt is in severe sharp pain worse in the RLE, associated with warmth and redness. Pt's son at bedside providing most of the history. States she is "always" in pain but this is worse than usual 10/10 on pain scale. It does not radiate anywhere just stays in the feet. Patient is bed bound at home and follows up with wound clinic with Dr. Hansen, most recently was a few days ago and told to follow up in a week. Denies any fevers, abdominal pain, cp, sob, chills, signs of bleeding. Pt endorses leg swelling on rt side worse than previously. Pt admits to using oxycontin 10 BID at home for pain but has not been helping lately. Pt states she was on coumadin in past but after having the DVT years ago, Dr. Goodwin placed her on eliquis. She also is on prednisone for RA but they were unsure of the dose but state it is unchanged from previously so can refer to the chart. Dr. Goodwin stopped by bedside, told family he would order morphine and plan for Angiography and surgical planning on Wednesday / Wednesday. ER course was notable for: (1) wbc- 17.7 (2)duplex RLE ordered, morphine for pain (3) Hgb 10 (baseline) Recent Travel: denies PAST SURGICAL HISTORY: 3 back surgeries (states yrs ago), 2 kyphoplasties, laminectomy/spinal fusions years ago, Left TMA a month ago Social History: Smoking:denies Alcohol:denies Drugs: denies Allergies No Known Allergies Allergy (Verified 12/01/19 16:56) HOME MEDICATIONS: Home Medications Medication Instructions Recorded Pantoprazole Sodium [Protonix -] 40 mg PO DAILY 03/06/14 Methotrexate [Mexate -] 7 tab PO Q7D 11/29/17 Teriparatide [Forteo] 0.8 ml SQ DAILY 09/14/19 Valsartan [Diovan] 160 mg PO DAILY tablet 09/26/19 Diltiazem HCl [Cartia Xt] 180 mg PO DAILY 10/31/19 Gabapentin [Neurontin -] 1 cap PO TID 10/31/19 Carbidopa/Levodopa *Cr* 25/100 1 tab PO TID 11/01/19 [Sinemet *Cr* 25/100 -] Escitalopram Oxalate [Lexapro -] 1 tab PO DAILY 11/01/19 Metoprolol Succinate [Toprol Xl] 1 tab PO HS 11/01/19 Pramipexole Dihydrochloride 1 tab PO DAILY 11/01/19 [Mirapex -] predniSONE [Deltasone -] 2.5 mg PO DAILY 11/01/19 Acetaminophen [Acetaminophen ER] 650 mg PO Q6H 30 Days #120 11/06/19 tablet.er Apixaban [Eliquis] 5 mg PO BID #30 tablet 11/06/19 Atorvastatin Ca [Lipitor] 10 mg PO HS 30 Days #30 tablet 11/06/19 Oxycodone HCl 5 mg PO Q6H PRN #15 tablet MDD 4 11/06/19 tab Sodium Chloride Tablet - 1 gm PO DAILY 14 Days #14 tablet 11/06/19 REVIEW OF SYSTEMS Negative except above PHYSICAL EXAMINATION Vital Signs - 24 hr 12/01/19 12/01/19 12/01/19 17:14 18:00 20:28 Temperature 98.4 F Pulse Rate 96 H Pulse Rate [ 117 H Right Radial] Respiratory 24 H 22 H Rate Blood Pressure 142/68 Blood Pressure 124/68 [Left Arm] O2 Sat by Pulse 96 96 98 Oximetry (%) GENERAL: Awake, alert, and fully oriented, in mild acute distress.. NECK: Normal range of motion, supple without lymphadenopathy, JVD, or masses. LUNGS: Breath sounds equal, clear to auscultation bilaterally. No wheezes, and no crackles. HEART: tachycardic in regular rhythm, normal S1 and S2 without murmur, rub or gallop. ABDOMEN: Soft, nontender, not distended, no guarding. UPPER EXTREMITIES: 2+ pulses, warm, well-perfused. mild bruising on rt arm LOWER EXTREMITIES: 2+ pulses, warm, well-perfused. Mild calf tenderness on rt side. B/l peripheral edema, worse on right lower extremity. NEUROLOGICAL: Cranial nerves II-XII intact. Normal speech. SKIN: pt refused exam but states b/l feet covered- per staff and pt's son- erythematous swollen, warm to touch with TMA on left leg that has acutely worsened, RLE has three black toes, state she has bed sore on sacral region Laboratory Results - last 24 hr 12/01/19 12/01/19 18:35 18:35 WBC 17.7 H RBC 3.42 L Hgb 10.0 L Hct 30.8 L MCV 90.1 MCH 29.3 MCHC 32.6 RDW 16.5 H Plt Count 495 H D MPV 7.3 L D Absolute Neuts (auto) 14.8 H Neutrophils % 83.9 H D Lymphocytes % 9.4 D Monocytes % 6.3 Eosinophils % 0.1 D Basophils % 0.3 Nucleated RBC % 0 Sodium 132 L Potassium 5.1 Chloride 96 L Carbon Dioxide 28 Anion Gap 7 L BUN 21.7 H Creatinine 0.6 Est GFR (CKD-EPI)AfAm 93.66 Est GFR (CKD-EPI)NonAf 80.81 Random Glucose 102 Calcium 9.0 Total Bilirubin 0.6 AST 45 H ALT 29 Alkaline Phosphatase 111 Total Protein 6.0 L Albumin 2.8 L ASSESSMENT/PLAN: This is an 89 y/o F with a PMHx of HTN, GERD, HLD, DVT on chronic AC (eliquis), severe PVD s/p LLE angioplasty, s/p Lt TMA on 11/03 presenting with b/l leg pain. Pt is in severe sharp pain worse in the RLE, associated with warmth and redness. Pt's son at bedside providing most of the history. #RLE cellulitis/Severe PAD - likely 2/2 peripheral artery disease, unable to see wound but per sign out sounds cellulitic - doubt osteo but up to day team if they would like to order esr, crp which would likely be high in a RA pt and a pt with acute inflammation. - Dr. Loya consulted for Lt foot s/p TMA that has not healed well per pt and ED staff - Dr. Goodwin consulted and saw pt- ordered morphine for pain control and stated will set up pt for RLE angio and possible total knee down amputation. - RLE sono ordered to assess for dvt given edema but pt already on mgmt with eliquis 5 BID - vanc zosyn given in ED, would like to continue vanc 500 daily and zosyn 3.375 Q8H given the severity. - ID consulted (Gabe) will await recommendations. - afebrile - dvt px with eliquis - morphine prn for pain - low Na diet #Intravascular fluid depletion/dehydration dry mucous membranes, dry skin poor skin turgor - IV NS 75/hr - hypoalbuminemia/failure to thrive #DVT hx - pt on eliquis 5 bid but ? as to why not on 2.5 BID given age >80, <60 kg criteria. - dvt was yrs ago - Hold apixaban and start heparin drip in anticipation for probable early surgery and debridement with Goodwin in AM. #Paroxysmal A. fibwith RVR Hold apixaban and start heparin drip in anticipation for probable early surgery and debridement c/w metoprolol c/w Diltiazem #Normocytic Anemia - chronic per chart review #HTN - Continue losartan, metoprolol #RA - continue 2.5 prednisone and 17.5 once/wk methotrexate #GERD - Continue protonix #Parkinsonism Continue with home dose Sinemet Dispo: med rec as per last admission. day team to confirm meds but pt states there has been no changes since last time here. Visit type - Emergency Visit Emergency Visit: Yes ED Registration Date: 12/01/19 Care time: The patient presented to the Emergency Department on the above date and was hospitalized for further evaluation of their emergent condition. - New Patient This patient is new to me today: Yes Date on this admission: 12/02/19 - Critical Care Critical Care patient: No ATTENDING PHYSICIAN STATEMENT I saw and evaluated the patient. I reviewed the resident's note and discussed the case with the resident. I agree with the resident's findings and plan as documented. SUBJECTIVE: OBJECTIVE: ASSESSMENT AND PLAN:
[2019-12-01] MEDS ORDERED: HEPARIN NA (PORCINE) 5,000 UNITS/ML 1ML VIAL SQ SCH (22:45)
[2019-12-01] MEDS ORDERED: ACETAMINOPHEN 650 MG PO SCH (22:45)
[2019-12-01] MEDS ORDERED: ACETAMINOPHEN 325 MG TABLET (FP) PO PRN (23:03)
[2019-12-02] MEDS ORDERED: MORPHINE SULFATE 2 MG/ML VIAL ONE ×3 (00:48→11:51)
[2019-12-02] MEDS ORDERED: VANCOMYCIN 1,000 MG in DEXTROSE 5%-WATER - 250 ML IVPB SCH ×2 (01:00→21:00)
[2019-12-02] MEDS: MORPHINE SULFATE 2 MG/ML VIAL IVPUSH PRN ×4 (01:01→16:24)
[2019-12-02] MEDS ORDERED: VANCOMYCIN 500 MG in DEXTROSE 5%-WATER - 100 ML IVPB SCH (01:15)
[2019-12-02] MEDS ORDERED: oxyCODONE HCL 5 MG TABLET ONE ×2 (01:29→08:09)
[2019-12-02] MEDS ORDERED: VANCOMYCIN 500 MG in DEXTROSE 5%-WATER 100 ML IVPB SCH ×2 (01:30→21:30)
[2019-12-02] MEDS: oxyCODONE HCL 5 MG TABLET PO PRN ×3 (01:30→17:20)
--- NOTE | 2019-12-02 01:53 | PN ---
Teaching Attending Note Name of Resident: Ross Arana ATTENDING PHYSICIAN STATEMENT I saw and evaluated the patient. I reviewed the resident's note and discussed the case with the resident. I agree with the resident's findings and plan as documented. SUBJECTIVE: 89 y/o lady with h/o PVD, HTN, remote DVT, HLP, esophageal ulcer, IBS, paroxysmal AF,s/p angioplasty, and anemia recently discharged on 11/06/2019 after undergoing left transmetatarsal amputation by Dr. Goodwin. Patient was seen in vascular clinic and was sent to hospital for further debridement as her lower extremities were noted to be necrotic with underlying infection. Left transmetatarsal amputation site is not healing well and is grossly infected. OBJECTIVE: Last Vital Signs Temp Pulse Resp BP Pulse Ox 98.5 F 109 H 20 124/60 97 12/02/19 00:55 12/02/19 00:55 12/02/19 00:55 12/02/19 00:55 12/02/19 00:55 GENERAL: Elderly, frail, not in acute distress, nontoxic appearing HEENT: Normocephalic, atraumatic. PERRLA, EOMI. No conjunctival pallor. Dry oral mucosa. NECK: Supple. Full ROM. No JVD. Carotid pulses 2+ and symmetric, without bruits. No thyromegaly. No lymphadenopathy. CARDIOVASCULAR: Regular rate and rhythm. No murmurs, rubs, or gallops. Distal pulses are 2+ and symmetric. PULMONARY: No evidence of respiratory distress. Lungs clear to auscultation bilaterally. No wheezing, rales or rhonchi. ABDOMINAL: Soft. Non-tender. Non-distended. No rebound or guarding. No organomegaly. Normoactive bowel sounds. MUSCULOSKELETAL Normal range of motion at all joints. No bony deformities or tenderness. No CVA tenderness. EXTREMITIES: Right foot edematous, with necrotic changes over first, second, third digits, yellowish discoloration over first, second, third, fourth digits, decreased sensation. Left lower extremity transmetatarsal scar appears grossly infected, purulent with necrosis developing distal to suture site Both lower extremities seeping fluid through the dressings SKIN: Very dry skin Normal capillary refill. No rashes. No jaundice. NEUROLOGICAL: No focal neurological deficits PSYCHIATRIC: Cooperative. Good eye contact. Appropriate mood and affect. Abnormal Lab Results 12/01/19 12/01/19 18:35 18:35 WBC 17.7 H RBC 3.42 L Hgb 10.0 L Hct 30.8 L RDW 16.5 H Plt Count 495 H D MPV 7.3 L D Absolute Neuts (auto) 14.8 H Neutrophils % 83.9 H D Sodium 132 L Chloride 96 L Anion Gap 7 L BUN 21.7 H AST 45 H Total Protein 6.0 L Albumin 2.8 L Imaging studies reviewed ASSESSMENT AND PLAN: Sepsis secondary to Bilateral lower extremity distal necrosis and gross purulent infection as described above in physical exam. Leukocytosis. Underlying osteomyelitis, will likely require extensive debridement and probably further amputation. Blood cultures x2 Zosyn and vancomycin Frequent dressing changes Vascular surgery consult Statin Hold antiplatelet agents In anticipation of surgery #Intravascular fluid depletion/dehydrationdry mucous membranes, dry skin poor skin turgor IV fluid hydration #Hypoalbuminemia #Paroxysmal A. fibwith RVR Hold apixaban and start heparin drip in anticipation for probable early surgery and debridement toprolol Diltiazem #Hypertension Continue losartan, metoprolol succinate, diltiazem #Parkinsonism Continue with home dose Sinemet #Chronic normocytic anemia #DVT prophylaxison heparin drip
[2019-12-02] MEDS ORDERED: PIPERACILLIN/TAZOB 3.375 GM 3.375 GM in DEXTROSE 5%-WATER - 50 ML IVPB SCH ×2 (02:00→05:30)
[2019-12-02] MEDS ORDERED: HEPARIN NA (PORCINE) 5,000 UNITS/ML 1ML VIAL IVPUSH PRN ×2 (02:09)
[2019-12-02] MEDS ORDERED: AMPICILLIN NA/SULBACTAM NA 1.5 GM in SODIUM CHLORIDE 100 ML IVPB SCH (03:00)
[2019-12-02] MEDS ORDERED: CARBIDOPA/LEVODOPA 25/100 TABLET (FP) ONE (06:05)
[2019-12-02] MEDS ORDERED: PIPERACILLIN/TAZOB 3.375 GM 3.375 GM/50 ML BAG IVPB ONE ×2 (06:05→09:41)
[2019-12-02] MEDS ORDERED: GABAPENTIN 100 MG CAPSULE ONE (06:05)
[2019-12-02 06:18] LABS: BASO % 0.4 % (0-2.0); EOS % 0.3 % (0-4.5); HEMATOCRIT 25.4 % (32.4-45.2); HEMOGLOBIN 8.4 GM/dL (10.7-15.3); MCH 29.5 pg (25.7-33.7); MCHC 33.3 g/dl (32.0-36.0); MEAN CELL VOLUME 88.7 fl (80-96); MONO % 7.6 % (3.8-10.2); NEUT % 77.7 % (42.8-82.8); PLATELET COUNT 424 K/MM3 (134-434); RBC 2.86 M/mm3 (3.60-5.2); RDW 16.4 % (11.6-15.6); WHITE BLOOD COUNT 14.7 K/mm3 (4.0-10.0)
[2019-12-02] MEDS: PIPERACILLIN/TAZOB 3.375 GM 3.375 GM in DEXTROSE 5%-WATER - 50 ML IVPB SCH ×4 (06:28→17:21)
[2019-12-02] MEDS: GABAPENTIN 300 MG CAPSULE PO SCH ×3 (06:28→22:15)
[2019-12-02] MEDS: SODIUM CHLORIDE 1,000 ML IV SCH (06:28)
[2019-12-02] MEDS: HEPARIN - 25,000 UNIT in SODIUM CHLORIDE 495 ML IV SCH (06:40)
[2019-12-02 06:43] LABS: IRON SERUM 12 ug/dL (50-175); TOTAL IRON BINDING CAPACITY 230 ug/dL (250-450)
[2019-12-02 07:07] LABS: ALBUMIN 2.3 g/dl (3.4-5.0); BILIRUBIN,TOTAL 0.6 mg/dL (0.2-1); BLOOD UREA NITROGEN 14.3 mg/dL (7-18); CALCIUM 8.4 mg/dL (8.5-10.1); CREATININE 0.4 mg/dL (0.55-1.3); MAGNESIUM 1.8 mg/dL (1.8-2.4); PHOSPHOROUS 2.6 mg/dL (2.5-4.9); POTASSIUM 4.3 mmol/L (3.5-5.1); TOT PROT 4.9 g/dl (6.4-8.2)
--- NOTE | 2019-12-02 09:25 | PN ---
Progress Note (short form) - Note Progress Note: ID consult dictated imp/reccd 89 yo female with PVD, s/p recent TMA left foot, had necrotic toes right foot at that time now returns with tma dehiscence, and continued necrotic toes right foot TMA infection/dehiscence- not sure if foot is viable-awaiting vascular surgery evaluation necrotic toes right foot obtain cultures no drainage from foot noted empiric vanco/zosyn ?hold methotrexate for now Problem List - Problems (1) Wound infection after surgery Code(s): T81.49XA - INFECTION FOLLOWING A PROCEDURE, OTHER SURGICAL SITE, INIT (2) Critical ischemia of foot Code(s): I99.8 - OTHER DISORDER OF CIRCULATORY SYSTEM (3) Foot pain, bilateral Code(s): M79.671 - PAIN IN RIGHT FOOT; M79.672 - PAIN IN LEFT FOOT (4) PVD (peripheral vascular disease) Code(s): I73.9 - PERIPHERAL VASCULAR DISEASE, UNSPECIFIED (5) Rheumatoid arthritis Code(s): M06.9 - RHEUMATOID ARTHRITIS, UNSPECIFIED Qualifiers: Rheumatoid arthritis location: unspecified site
[2019-12-02] MEDS: VALSARTAN 160 MG TABLET (UD) PO SCH (09:39)
[2019-12-02] MEDS: PANTOPRAZOLE 40 MG TABLET PO SCH (09:39)
[2019-12-02] MEDS: SODIUM CHLORIDE 1 GM TABLET PO SCH (09:39)
[2019-12-02] MEDS: ESCITALOPRAM OXALATE 20 MG TABLET PO SCH (09:39)
[2019-12-02 09:40] LABS: INR 1.46 (0.83-1.09); PROTHROMBIN TIME (PATIENT) 17.3 SEC (9.7-13.0)
[2019-12-02] MEDS ORDERED: predniSONE 2.5 MG TABLET PO SCH (10:00)
[2019-12-02] MEDS ORDERED: PRAMIPEXOLE DIHYDROCHLORIDE 0.25 MG TABLET PO SCH (10:00)
[2019-12-02] MEDS ORDERED: APIXABAN 2.5 MG TABLET PO SCH (10:00)
[2019-12-02] MEDS ORDERED: APIXABAN 5 MG TABLET PO SCH (10:00)
--- NOTE | 2019-12-02 11:01 | CONS ---
INFECTIOUS DISEASE CONSULTATION DATE OF CONSULTATION: DATE OF DICTATION: 12/02/2019 HISTORY: This is an 89-year-old woman with past medical history of severe peripheral vascular disease. She was admitted in October for severe ischemic pain in her feet and necrotic toes. On November 03, she underwent a left foot transmetatarsal amputation. She did well, and she was discharged home on the with close outpatient follow up. At that time, she also had some dry ischemia and necrosis of the right foot. She is now re-admitted with opening of the dehiscence of the surgical site and necrosis along the suture line. On her right foot, she has some erythema noted on the forefoot, and she continues to have ischemic changes in the first 3 toes of that foot. She denies any fever at home. She reports she has continued pain. PAST MEDICAL HISTORY: Notable for hypertension, hyperlipidemia, severe peripheral vascular disease, DVT, anemia, rheumatoid arthritis. SURGICAL HISTORY: Notable for laminectomy, spinal fusion, kyphoplasty, benign salivary gland tumor resection, left carpal tunnel surgery. Multiple procedures for her peripheral vascular disease. August 2019, left leg angioplasty with popliteal athrectomy and angioplasty. August 2019, popliteal artery angioplasty with stent placement, anterior tibial artery angioplasty. September 2019, angioplasty again for popliteal stent occlusion. SOCIAL HISTORY: She lives with her son. 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 Has not been able to walk due to the severe leg pain. Stopped smoking 50 years ago. No history of alcohol or substance use. ALLERGIES: No known drug allergies. MEDICATIONS: At home include prednisone, valsartan, Forteo, Mirapex, Protonix, oxycodone, Toprol XL, methotrexate, Neurontin, Lexapro, Cartia, Sinemet, atorvastatin, and Eliquis. REVIEW OF SYSTEMS: Generally, she is feeling lousy. She is very uncomfortable. Denies any fevers at home. PHYSICAL EXAMINATION: General: She is an elderly woman. Vital Signs: Current temperature is 100, pulse of 102, blood pressure 141/63, respiratory rate is 20. HEENT: She is normocephalic. Her eyes are anicteric. Neck: Supple. Lungs: Clear to auscultation. Heart: Regular rate and rhythm. She has a 2/6 systolic ejection murmur. Abdomen: Soft, nontender. Extremities: Notable for the left forefoot transmetatarsal scar, which is open. There is no gross purulence. She has necrosis along the suture line. She has some evidence of ischemia along the suture line. On her right lower foot, she has dry necrosis of the 1st, 2nd, and 3rd digits, and she has some erythema of the right forefoot, and her right foot is mildly swollen as well. DIAGNOSTIC DATA: Her labs are notable for an admitting white count of 17.7, this morning is 14.7, hemoglobin is 8.4, platelets are 424. BUN 14, creatinine 0.4 with normal LFTs. No cultures have been sent. X-rays include a duplex of her legs that showed no DVT of the right leg, which is mildly swollen. Her x-ray, otherwise, there are no signs of any infiltrate and no change since October. In summary, this is an 89-year-old woman with severe peripheral vascular disease who shows evidence now of transmetatarsal amputation site dehiscence and continued dry necrosis of the toes of the right foot. I am not sure at this point if the foot is viable. Awaiting vascular evaluation. Would obtain cultures, at least blood cultures, given her low-grade fever and leukocytosis, which were not done in the ER. No drainage from the foot is noted. Would treat her empirically with vancomycin and Zosyn for now. Would consider holding her methotrexate as well. LEA HUGHES M.D. [id number]
[2019-12-02 13:36] LABS: INR 1.4 (0.83-1.09); PROTHROMBIN TIME (PATIENT) 16.6 SEC (9.7-13.0)
[2019-12-02 13:39] LABS: ACTIVATED PTT 32.8 SECONDS (25.2-36.5)
[2019-12-02] MEDS ORDERED: HEPARIN NA (PORCINE) 5,000 UNITS/ML 1ML VIAL ONE (14:05)
--- NOTE | 2019-12-02 14:30 | EKG ---
Test Reason : Blood Pressure : / mmHG Vent. Rate : 115 BPM Atrial Rate : 115 BPM P-R Int : 144 ms QRS Dur : 090 ms QT Int : 322 ms P-R-T Axes : 054 -29 088 degrees QTc Int : 445 ms POOR DATA QUALITY, INTERPRETATION MAY BE ADVERSELY AFFECTED SINUS TACHYCARDIA OTHERWISE NORMAL ECG Confirmed by MD ODIN, CHAN ([id number]) on 12/02/2019 2:29:55 PM Referred By: Confirmed By:CHAN NEWBY MD
--- NOTE | 2019-12-02 16:32 | PN ---
Physical Exam: SUBJECTIVE: Patient seen and examined. She complains of pain in both feet. OBJECTIVE: Vital Signs Period Temp Pulse Resp BP Sys/Ying Pulse Ox Last 24 Hr 98.4 F-100 F 96-117 18-24 121-142/60-68 94-98 GENERAL: The patient is awake, alert, and fully oriented, in no acute distress. LUNGS: Breath sounds equal, clear to auscultation bilaterally, no wheezes, no crackles, no accessory muscle use. HEART: Regular rhythm, tachycardic, S1, S2, (+) 4/6 SM, no rub or gallop. ABDOMEN: Soft, nontender, nondistended, normoactive bowel sounds, no guarding, no rebound, no hepatosplenomegaly, no masses. EXTREMITIES: Both feet wrapped, no edema. Laboratory Results - last 24 hr 12/01/19 12/01/19 12/02/19 18:35 18:35 05:02 WBC 17.7 H RBC 3.42 L Hgb 10.0 L Hct 30.8 L MCV 90.1 MCH 29.3 MCHC 32.6 RDW 16.5 H Plt Count 495 H D MPV 7.3 L D Absolute Neuts (auto) 14.8 H Neutrophils % 83.9 H D Lymphocytes % 9.4 D Monocytes % 6.3 Eosinophils % 0.1 D Basophils % 0.3 Nucleated RBC % 0 PT with INR INR PTT (Actin FS) 33.2 Sodium 132 L Potassium 5.1 Chloride 96 L Carbon Dioxide 28 Anion Gap 7 L BUN 21.7 H Creatinine 0.6 Est GFR (CKD-EPI)AfAm 93.66 Est GFR (CKD-EPI)NonAf 80.81 Random Glucose 102 Lactic Acid Calcium 9.0 Phosphorus Magnesium Iron TIBC Iron Saturation Unsaturated IBC Total Bilirubin 0.6 AST 45 H ALT 29 Alkaline Phosphatase 111 Total Protein 6.0 L Albumin 2.8 L Blood Type Antibody Screen 12/02/19 12/02/19 12/02/19 05:40 05:40 05:40 WBC 14.7 H RBC 2.86 L Hgb 8.4 L Hct 25.4 L D MCV 88.7 MCH 29.5 MCHC 33.3 RDW 16.4 H Plt Count 424 MPV 7.0 L Absolute Neuts (auto) 11.4 H Neutrophils % 77.7 Lymphocytes % 14.0 D Monocytes % 7.6 Eosinophils % 0.3 D Basophils % 0.4 Nucleated RBC % 0 PT with INR INR PTT (Actin FS) Sodium 134 L Potassium 4.3 Chloride 100 Carbon Dioxide 27 Anion Gap 7 L BUN 14.3 Creatinine 0.4 L Est GFR (CKD-EPI)AfAm 107.03 Est GFR (CKD-EPI)NonAf 92.34 Random Glucose 84 Lactic Acid Calcium 8.4 L Phosphorus 2.6 Magnesium 1.8 Iron 12 L 12 L TIBC 230 L Iron Saturation 5 L Unsaturated IBC 218 Total Bilirubin 0.6 AST 38 H ALT 24 Alkaline Phosphatase 90 Total Protein 4.9 L Albumin 2.3 L Blood Type Antibody Screen 12/02/19 12/02/19 12/02/19 08:40 08:40 08:40 WBC RBC Hgb Hct MCV MCH MCHC RDW Plt Count MPV Absolute Neuts (auto) Neutrophils % Lymphocytes % Monocytes % Eosinophils % Basophils % Nucleated RBC % PT with INR 17.30 H INR 1.46 H PTT (Actin FS) Sodium Potassium Chloride Carbon Dioxide Anion Gap BUN Creatinine Est GFR (CKD-EPI)AfAm Est GFR (CKD-EPI)NonAf Random Glucose Lactic Acid 0.9 Calcium Phosphorus Magnesium Iron TIBC Iron Saturation Unsaturated IBC Total Bilirubin AST ALT Alkaline Phosphatase Total Protein Albumin Blood Type A POSITIVE Antibody Screen Negative 12/02/19 12:50 WBC RBC Hgb Hct MCV MCH MCHC RDW Plt Count MPV Absolute Neuts (auto) Neutrophils % Lymphocytes % Monocytes % Eosinophils % Basophils % Nucleated RBC % PT with INR 16.60 H INR 1.40 H PTT (Actin FS) 32.8 Sodium Potassium Chloride Carbon Dioxide Anion Gap BUN Creatinine Est GFR (CKD-EPI)AfAm Est GFR (CKD-EPI)NonAf Random Glucose Lactic Acid Calcium Phosphorus Magnesium Iron TIBC Iron Saturation Unsaturated IBC Total Bilirubin AST ALT Alkaline Phosphatase Total Protein Albumin Blood Type Antibody Screen Active Medications Generic Name Dose Route Start Last Admin Trade Name Freq PRN Reason Stop Dose Admin Acetaminophen 650 mg 12/01/19 23:03 Tylenol - PO Q6H PRN PAIN LEVEL 1-3 Atorvastatin Calcium 10 mg 12/02/19 22:00 Lipitor - PO HS COLBY Carbidopa/Levodopa 1 combo 12/02/19 06:00 12/02/19 14:08 Sinemet *Cr* 25/100 - PO 1 combo TID COLBY Administration Diltiazem HCl 180 mg 12/02/19 10:00 12/02/19 09:38 Cardizem Cd - PO 180 mg DAILY COLBY Administration Escitalopram Oxalate 20 mg 12/02/19 10:00 12/02/19 09:39 Lexapro - PO 20 mg DAILY COLBY Administration Gabapentin 300 mg 12/02/19 06:00 12/02/19 14:08 Neurontin - PO 300 mg TID COLBY Administration Heparin Sodium (Porcine) 1,000 unit 12/02/19 02:09 Heparin - IVPUSH PRN PRN Heparin Heparin Sodium (Porcine) 5,000 unit 12/02/19 02:09 12/02/19 14:08 Heparin - IVPUSH 5,000 unit PRN PRN Administration Heparin Sodium Chloride 1,000 mls @ 75 mls/hr 12/02/19 01:00 12/02/19 06:28 Normal Saline - IV 75 mls/hr ASDIR COLBY Administration Heparin Sodium (Porcine) 25, 500 mls @ 16 mls/hr 12/02/19 05:00 12/02/19 14: 08 000 unit/ Sodium Chloride IV 950 unit/hr TITR COLBY 19 mls/hr Titration Protocol 800 UNIT/HR Piperacillin Sod/Tazobactam 50 mls @ 100 mls/hr 12/02/19 10:00 12/02/19 09:56 Sod 3.375 gm/ Dextrose IVPB 100 mls/hr Q8H-IV COLBY Administration Protocol Vancomycin HCl 750 mg/ 250 mls @ 250 mls/hr 12/02/19 20:00 Dextrose IVPB Q24H COLBY Protocol Methotrexate 17.5 mg 12/05/19 10:00 Mexate - PO Tu@1000 [facility] Metoprolol Succinate 50 mg 12/02/19 22:00 Toprol Xl - PO HS [facility] Morphine Sulfate 2 mg 12/01/19 18:34 12/02/19 11:56 Morphine Sulfate IVPUSH 2 mg Q4H PRN Administration PAIN LEVEL 7 - 10 Non-Formulary Medication 0.8 ml 12/02/19 10:00 Teriparatide [Forteo] SQ DAILY [facility] Oxycodone HCl 5 mg 12/01/19 22:42 12/02/19 08:21 Roxicodone - PO 5 mg Q6H PRN Administration PAIN LEVEL 6-10 Pantoprazole Sodium 40 mg 12/02/19 10:00 12/02/19 09:39 Protonix - PO 40 mg DAILY COLBY Administration Pramipexole Dihydrochloride 0.25 mg 12/02/19 10:00 12/02/19 09:39 Mirapex - PO 0.25 mg DAILY COLBY Administration Prednisone 2.5 mg 12/02/19 10:00 12/02/19 09:38 Deltasone - PO 2.5 mg DAILY COLBY Administration Sodium Chloride 1 gm 12/02/19 10:00 12/02/19 09:39 Sodium Chloride Tablet - PO 1 gm DAILY COLBY Administration Valsartan 160 mg 12/02/19 10:00 12/02/19 09:39 Diovan - PO 160 mg DAILY COLBY Administration ASSESSMENT/PLAN: This is an 89 year old woman with a history of HTN, hyperlipidemia, PAF, PAD, recent left TMA, DVT, GERD, anemia, RA who presented to the ED with pain in both feet. 1. PAD with recent left TMA 11/03, now with dehiscence and infection of surgical wound, necrotic toes of right foot - Vascular evaluation - Eliquis on hold for expected procedure - Continue Lipitor 2. Sepsis (tachycardia, tachypnea, leukocytosis) secondary to infected surgical wound - Continue Zosyn, vancomycin - Hold methotrexate secondary to infection 3. Paroxysmal atrial fib - Remains in sinus rhythm - Continue Cardizem CD, Toprol XL - Eliquis held as surgical procedure expected - Continue heparin IV drip 4. HTN - Continue Diovan, Cardizem CD, Toprol XL 5. Hyperlipidemia - Continue Lipitor 6. History of DVT 7. GERD - Continue Protonix 8. Anemia - Likely secondary to chronic illness - Monitor hgb and transfuse as needed to keep hgb>8 9. Rheumatoid arthritis - Hold methotrexate secondary to infection - Continue prednisone Visit type - Emergency Visit Emergency Visit: Yes ED Registration Date: 12/01/19 Care time: The patient presented to the Emergency Department on the above date and was hospitalized for further evaluation of their emergent condition. - New Patient This patient is new to me today: Yes Date on this admission: 12/02/19 - Critical Care Critical Care patient: No
[2019-12-02] MEDS ORDERED: PIPERACILLIN/TAZOBACTAM 3.375 GM VIAL IVPB ONE (17:16)
[2019-12-02] MEDS ORDERED: DEXTROSE 5%-WATER - 50 ML IVPB ONE (17:16)
[2019-12-02] MEDS: HYDROmorphone HCl 2 MG/ML VIAL IVPB PRN (18:54)
[2019-12-02] MEDS: VANCOMYCIN 750 MG in DEXTROSE 5%-WATER - 250 ML IVPB SCH (20:46)
[2019-12-02] MEDS: ATORVASTATIN CA 10 MG TABLET (FP) PO SCH (22:15)
[2019-12-03] MEDS ORDERED: PIPERACILLIN/TAZOBACTAM 3.375 GM VIAL IVPB ONE ×3 (01:22→16:47)
[2019-12-03] MEDS ORDERED: DEXTROSE 5%-WATER - 50 ML IVPB ONE ×3 (01:23→16:47)
[2019-12-03] MEDS: SODIUM CHLORIDE 1,000 ML IV SCH ×2 (01:30→09:15)
[2019-12-03] MEDS: PIPERACILLIN/TAZOB 3.375 GM 3.375 GM in DEXTROSE 5%-WATER - 50 ML IVPB SCH ×3 (01:31→17:36)
[2019-12-03] MEDS: HEPARIN - 25,000 UNIT in SODIUM CHLORIDE 495 ML IV SCH ×2 (05:17→17:30)
[2019-12-03] MEDS: HYDROmorphone HCl 2 MG/ML VIAL IVPB PRN ×3 (05:25→17:31)
[2019-12-03] MEDS: GABAPENTIN 300 MG CAPSULE PO SCH ×3 (05:25→21:21)
[2019-12-03] MEDS: oxyCODONE HCL 5 MG TABLET PO PRN ×3 (08:55→21:21)
[2019-12-03 08:56] LABS: BLOOD UREA NITROGEN 9.6 mg/dL (7-18); CALCIUM 7.9 mg/dL (8.5-10.1); CREATININE 0.3 mg/dL (0.55-1.3); POTASSIUM 3.9 mmol/L (3.5-5.1)
[2019-12-03] MEDS: PANTOPRAZOLE 40 MG TABLET PO SCH (09:10)
[2019-12-03] MEDS: VALSARTAN 160 MG TABLET (UD) PO SCH (09:10)
[2019-12-03] MEDS: SODIUM CHLORIDE 1 GM TABLET PO SCH (09:10)
[2019-12-03] MEDS ORDERED: PT OWN MED DRAWER 7, Y5N ONE ×2 (09:13→15:18)
[2019-12-03] MEDS: ESCITALOPRAM OXALATE 20 MG TABLET PO SCH (09:14)
--- NOTE | 2019-12-03 10:11 | CONSULT ---
Consult - text type - Consultation Consultation Note: Podiatry Consultation: 89 year old female, history of severe PAD s/p LLE angioplasty, presented to hospital for ischemic pain to both feet. Patient well known to me from [facility] and prior admission. S/p L transmetatarsal amputation 11/03/19. Patient endorses persistent pain to the left foot postoperative site as well as ischemic pain to the right foot. I had evaluated her this past Wednesday in wound healing center, where further ischemic changes to the left transmetatarsal amputation foot was noted. She also has dry gangrenous changes to the right foot. Does have low grade temp in hospital to 99F. PMHx: HTN, GERD, HLD, DVT on chronic AC (eliquis), severe PVD s/p LLE angioplasty, s/p Lt TMA Meds: noted ALL: NKMA DEB: vascular: pedal pulses nonpalpable, TG warm-cool, CFT delayed to all toes on the right foot. There are ischemic changes to the foot, including necrotic lateral midfoot and heel to the left foot, dry gangrene of forefoot of right foot. There is no purulent drainage, no fluctuance, no streaking cellulitis, no lymphangitis, no soft tissue crepitus bilaterally. neuro: epicritic and protective sensations grossly intact bilaterally. There are no focal motor or sensory deficits bilaterally. derm: there is dry gangrenous changes to the forefoot, all digits, on the right foot. There is a left transmetatarsal amputation stump site with dehiscence of surgical incision, underlying fibrotic base, no exposed bone. There is necrotic changes to the lateral arch and plantar heel. There is significant tenderness on palpation of both feet, generalized. Imp: 89 year old PAD female with right forefoot gangrene and s/p left transmetatarsal amputation, dysvascular surgical site and foot 1. IV abx per infectious disease 2. Pain control, may need pain management consultation 3. Vascular workup in progress. I did discuss with patient and her sons that left foot is dysvascular and there is no reasonable salvage procedure for the remaining portion of the left foot. Proximal amputation versus palliative efforts. 4. Continue local care. 5. Will follow. Thank you for the courtesy of this consultation. Isac Loya DPM
[2019-12-03] MEDS: predniSONE 5 MG TABLET (UD) PO SCH (11:44)
--- NOTE | 2019-12-03 14:45 | PN ---
Physical Exam: SUBJECTIVE: Patient seen and examined. She complains of pain in her feet. OBJECTIVE: Vital Signs Period Temp Pulse Resp BP Sys/Ying Pulse Ox Last 24 Hr 99.3 F-99.9 F 87-109 18-20 117-139/57-67 95-95 GENERAL: The patient is awake, alert, and in no acute distress. LUNGS: Breath sounds equal, clear to auscultation bilaterally, no wheezes, no crackles, no accessory muscle use. HEART: Regular rate and rhythm, S1, S2, (+) 4/6 SM, no rub or gallop. ABDOMEN: Soft, nontender, nondistended, normoactive bowel sounds, no guarding, no rebound, no hepatosplenomegaly, no masses. EXTREMITIES: Both feet wrapped, no edema. Laboratory Results - last 24 hr 12/02/19 12/03/19 12/03/19 19:42 02:30 07:23 PTT (Actin FS) 89.7 H 54.7 H Sodium 133 L Potassium 3.9 Chloride 100 Carbon Dioxide 27 Anion Gap 6 L BUN 9.6 Creatinine 0.3 L Est GFR (CKD-EPI)AfAm 117.65 Est GFR (CKD-EPI)NonAf 101.51 Random Glucose 88 Calcium 7.9 L 12/03/19 07:28 PTT (Actin FS) 52.2 H Sodium Potassium Chloride Carbon Dioxide Anion Gap BUN Creatinine Est GFR (CKD-EPI)AfAm Est GFR (CKD-EPI)NonAf Random Glucose Calcium Active Medications Generic Name Dose Route Start Last Admin Trade Name Freq PRN Reason Stop Dose Admin Acetaminophen 650 mg 12/01/19 23:03 Tylenol - PO Q6H PRN PAIN LEVEL 1-3 Atorvastatin Calcium 10 mg 12/02/19 22:00 12/02/19 22:15 Lipitor - PO 10 mg HS COLBY Administration Diltiazem HCl 180 mg 12/02/19 10:00 12/03/19 11:43 Cardizem Cd - PO 180 mg DAILY COLBY Administration Escitalopram Oxalate 20 mg 12/02/19 10:00 12/03/19 09:14 Lexapro - PO 20 mg DAILY COLBY Administration Gabapentin 300 mg 12/02/19 06:00 12/03/19 14:11 Neurontin - PO 300 mg TID COLBY Administration Heparin Sodium (Porcine) 1,000 unit 02/08/20 02:09 Heparin - IVPUSH PRN PRN Heparin Heparin Sodium (Porcine) 5,000 unit 12/02/19 02:09 12/02/19 14:08 Heparin - IVPUSH 5,000 unit PRN PRN Administration Heparin Hydromorphone HCl 2 mg 12/02/19 18:15 12/03/19 11:41 Dilaudid Vial - IVPB 2 mg Q6H PRN Administration PAIN LEVEL 7 - 10 Sodium Chloride 1,000 mls @ 75 mls/hr 12/02/19 01:00 12/03/19 09:15 Normal Saline - IV 75 mls/hr ASDIR COLBY Administration Heparin Sodium (Porcine) 25, 500 mls @ 16 mls/hr 12/02/19 05:00 12/03/19 05: 17 000 unit/ Sodium Chloride IV Not Given TITR COLBY Protocol 800 UNIT/HR Piperacillin Sod/Tazobactam 50 mls @ 100 mls/hr 12/02/19 10:00 12/03/19 09:04 Sod 3.375 gm/ Dextrose IVPB 100 mls/hr Q8H-IV COLBY Administration Protocol Vancomycin HCl 750 mg/ 250 mls @ 250 mls/hr 12/02/19 20:00 12/02/19 20:46 Dextrose IVPB 250 mls/hr Q24H COLBY Administration Protocol Metoprolol Succinate 50 mg 12/02/19 22:00 12/02/19 22:15 Toprol Xl - PO 50 mg HS COLBY Administration Non-Formulary Medication 0.08 ml 12/03/19 14:35 Teriparatide [Forteo] SQ DAILY COLBY Oxycodone HCl 5 mg 12/02/19 18:15 12/03/19 14:08 Roxicodone - PO 5 mg Q6H PRN Administration PAIN LEVEL 4 - 6 Pantoprazole Sodium 40 mg 12/02/19 10:00 12/03/19 09:10 Protonix - PO 40 mg DAILY COLBY Administration Prednisone 2.5 mg 12/03/19 10:00 12/03/19 11:44 Deltasone - PO 2.5 mg DAILY COLBY Administration Sodium Chloride 1 gm 12/02/19 10:00 12/03/19 09:10 Sodium Chloride Tablet - PO 1 gm DAILY COLBY Administration Valsartan 160 mg 12/02/19 10:00 12/03/19 09:10 Diovan - PO 160 mg DAILY COLBY Administration ASSESSMENT/PLAN: This is an 89 year old woman with a history of HTN, hyperlipidemia, PAF, PAD, recent left TMA, DVT, GERD, anemia, RA who presented to the ED with pain in both feet. 1. PAD with recent left TMA 11/03, now with dehiscence and infection of surgical wound, necrotic toes of right foot - Expect will need left BKA, right TMA - awaiting vascular evaluation - Eliquis on hold for expected procedure - Continue Lipitor 2. Sepsis (tachycardia, tachypnea, leukocytosis) secondary to infected surgical wound - Continue Zosyn, vancomycin - Methotrexate held secondary to infection 3. Paroxysmal atrial fib - Remains in sinus rhythm - Continue Cardizem CD, Toprol XL - Eliquis held as surgical procedure expected - Continue heparin IV drip 4. HTN - Continue Diovan, Cardizem CD, Toprol XL 5. Hyperlipidemia - Continue Lipitor 6. History of DVT 7. GERD - Continue Protonix 8. Anemia - Likely secondary to chronic illness - Monitor hgb and transfuse as needed to keep hgb>8 9. Rheumatoid arthritis - Methotrexate held secondary to infection - Continue prednisone Visit type - Emergency Visit Emergency Visit: Yes ED Registration Date: 12/01/19 Care time: The patient presented to the Emergency Department on the above date and was hospitalized for further evaluation of their emergent condition. - New Patient This patient is new to me today: No - Critical Care Critical Care patient: No - Discharge Referral Referred to [facility] Med P.C.: No
[2019-12-03] MEDS: TERIPARATIDE SQ SCH ×2 (15:36→15:37)
[2019-12-03 16:13] VITALS: BMI 18.6
[2019-12-03] MEDS: AMINO ACIDS/PROTEIN HYDROLYS 30 ML LIQUID.PKT PO SCH (17:34)
[2019-12-03] MEDS: ATORVASTATIN CA 10 MG TABLET (FP) PO SCH (21:21)
[2019-12-03] MEDS: VANCOMYCIN 750 MG in DEXTROSE 5%-WATER - 250 ML IVPB SCH (21:21)
[2019-12-04] MEDS ORDERED: DEXTROSE 5%-WATER - 50 ML IVPB ONE ×3 (01:21→17:41)
[2019-12-04] MEDS ORDERED: PIPERACILLIN/TAZOBACTAM 3.375 GM VIAL IVPB ONE ×3 (01:21→17:41)
[2019-12-04] MEDS: SODIUM CHLORIDE 1,000 ML IV SCH (01:27)
[2019-12-04] MEDS: PIPERACILLIN/TAZOB 3.375 GM 3.375 GM in DEXTROSE 5%-WATER - 50 ML IVPB SCH ×3 (01:28→17:46)
[2019-12-04] MEDS: HEPARIN - 25,000 UNIT in SODIUM CHLORIDE 495 ML IV SCH (06:03)
[2019-12-04] MEDS: HYDROmorphone HCl 2 MG/ML VIAL IVPB PRN ×3 (06:04→23:04)
[2019-12-04] MEDS: GABAPENTIN 300 MG CAPSULE PO SCH ×3 (06:05→21:45)
[2019-12-04] MEDS: AMINO ACIDS/PROTEIN HYDROLYS 30 ML LIQUID.PKT PO SCH ×2 (08:39→18:26)
[2019-12-04] MEDS: oxyCODONE HCL 5 MG TABLET PO PRN (08:43)
--- NOTE | 2019-12-04 09:34 | PN ---
Progress Note (short form) - Note Progress Note: continued foot pain Vital Signs Period Temp Pulse Resp BP Sys/Ying Pulse Ox Last 24 Hr 97.7 F-98.6 F 74-86 18-20 120-138/54-70 94-95 cor-rrr lungs clear abd soft,nt ext- dry necrotic toes left foot erythema of the forefoot, forefoot is cool, right foot amputation site has dehisced- necrosis to the heel CBC, BMP 12/02/19 05:40 12/03/19 07:23 Microbiology 12/02/19 17:00 Blood - Peripheral Venous Blood Culture - Preliminary NO GROWTH OBTAINED AFTER 24 HOURS, INCUBATION TO CONTINUE FOR 4 DAYS. 12/02/19 17:00 Blood - Peripheral Venous Blood Culture - Preliminary NO GROWTH OBTAINED AFTER 24 HOURS, INCUBATION TO CONTINUE FOR 4 DAYS. imp/reccd 89 yo female with PVD, s/p recent TMA left foot, had necrotic toes right foot at that time now returns with tma dehiscence, and continued necrotic toes right foot TMA infection/dehiscence- not sure if foot is viable-awaiting vascular surgery evaluation necrotic toes right foot empiric vanco/zosyn pain mangement consult d/w dr Hernandez
[2019-12-04] MEDS ORDERED: PT OWN MED DRAWER 7, Y5N ONE ×2 (09:53→21:44)
[2019-12-04] MEDS: VALSARTAN 160 MG TABLET (UD) PO SCH (10:01)
[2019-12-04] MEDS: predniSONE 5 MG TABLET (UD) PO SCH ×2 (10:02→11:36)
[2019-12-04] MEDS: SODIUM CHLORIDE 1 GM TABLET PO SCH ×2 (10:02→11:35)
[2019-12-04] MEDS: PANTOPRAZOLE 40 MG TABLET PO SCH ×2 (10:02→11:36)
[2019-12-04] MEDS: ESCITALOPRAM OXALATE 20 MG TABLET PO SCH ×2 (10:02→11:35)
[2019-12-04 10:04] LABS: HEMATOCRIT 25.9 % (32.4-45.2); HEMOGLOBIN 8.2 GM/dL (10.7-15.3); MCH 28.6 pg (25.7-33.7); MCHC 31.6 g/dl (32.0-36.0); MEAN CELL VOLUME 90.4 fl (80-96); MEAN PLT VOLUME 7.1 fl (7.5-11.1); PLATELET COUNT 331 K/MM3 (134-434); RBC 2.87 M/mm3 (3.60-5.2); RDW 17.1 % (11.6-15.6); WHITE BLOOD COUNT 14.7 K/mm3 (4.0-10.0)
[2019-12-04] MEDS ORDERED: HYDROmorphone HCl 2 MG/ML VIAL IVPB ONE (10:15)
[2019-12-04 10:29] LABS: BLOOD UREA NITROGEN 11.5 mg/dL (7-18); CALCIUM 8.4 mg/dL (8.5-10.1); CREATININE 0.3 mg/dL (0.55-1.3); POTASSIUM 3.9 mmol/L (3.5-5.1)
--- NOTE | 2019-12-04 10:53 | PN ---
Progress Note (short form) - Note Progress Note: Vascular Surgery Pt seen and examined. Spoke to son and daughter in law bedside. Pt will need bl lower ext angiogram to see runoff. Will need angioplasty of right leg. Will evaluate runoff of left leg and offer left bka. Will plan for angio this week - possibly maggie. Please clear for angiogram. Moose Goodwin DO
--- NOTE | 2019-12-04 10:59 | PN ---
Progress Note (short form) - Note Progress Note: Vascular Surgery Pt booked for maggie at 2pm. I restarted eliquis at 2.5mg bid. No need to stop. I started diet for today. Pt is npo after midnight. Moose Goodwin DO
[2019-12-04] MEDS: APIXABAN 2.5 MG TABLET PO SCH ×2 (11:31→21:45)
--- NOTE | 2019-12-04 13:20 | PN ---
Physical Exam: SUBJECTIVE: Patient seen and examined. Pain is better controlled. OBJECTIVE: Vital Signs Period Temp Pulse Resp BP Sys/Ying Pulse Ox Last 24 Hr 97.7 F-98.8 F 74-86 18-20 120-138/54-70 95 GENERAL: The patient is awake, alert, and in no acute distress. LUNGS: Breath sounds equal, clear to auscultation bilaterally, no wheezes, no crackles, no accessory muscle use. HEART: Regular rate and rhythm, S1, S2, (+) 4/6 SM, no rub or gallop. ABDOMEN: Soft, nontender, nondistended, normoactive bowel sounds, no guarding, no rebound, no hepatosplenomegaly, no masses. EXTREMITIES: Gangrene of toes, 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 Left TMA wound open with gangrene of lateral foot and heel. Laboratory Results - last 24 hr 12/04/19 12/04/19 12/04/19 08:45 08:45 08:45 WBC 14.7 H RBC 2.87 L Hgb 8.2 L Hct 25.9 L MCV 90.4 MCH 28.6 MCHC 31.6 L RDW 17.1 H Plt Count 331 D MPV 7.1 L PTT (Actin FS) 31.1 Sodium 135 L Potassium 3.9 Chloride 101 Carbon Dioxide 27 Anion Gap 7 L BUN 11.5 Creatinine 0.3 L Est GFR (CKD-EPI)AfAm 117.65 Est GFR (CKD-EPI)NonAf 101.51 Random Glucose 83 Calcium 8.4 L Active Medications Generic Name Dose Route Start Last Admin Trade Name Freq PRN Reason Stop Dose Admin Acetaminophen 650 mg 12/01/19 23:03 Tylenol - PO Q6H PRN PAIN LEVEL 1-3 Amino Acids 30 ml 12/03/19 17:30 12/04/19 08:39 Prosource No Carb Liquid Pkt PO Not Given BID@0800,1730 COLBY Apixaban 2.5 mg 12/04/19 11:00 12/04/19 11:31 Eliquis - PO 2.5 mg BID COLBY Administration Atorvastatin Calcium 10 mg 12/02/19 22:00 12/03/19 21:21 Lipitor - PO 10 mg HS COLBY Administration Diltiazem HCl 180 mg 12/02/19 10:00 12/04/19 10:02 Cardizem Cd - PO 180 mg DAILY COLBY Administration Escitalopram Oxalate 20 mg 12/02/19 10:00 12/04/19 11:35 Lexapro - PO 20 mg DAILY COLBY Administration Gabapentin 300 mg 12/02/19 06:00 12/04/19 06:05 Neurontin - PO Not Given TID COLBY Hydromorphone HCl 2 mg 12/02/19 18:15 12/04/19 06:04 Dilaudid Vial - IVPB 2 mg Q6H PRN Administration PAIN LEVEL 7 - 10 Piperacillin Sod/Tazobactam 50 mls @ 100 mls/hr 12/02/19 10:00 12/04/19 10:01 Sod 3.375 gm/ Dextrose IVPB 100 mls/hr Q8H-IV COLBY Administration Protocol Vancomycin HCl 750 mg/ 250 mls @ 250 mls/hr 12/02/19 20:00 12/03/19 21:21 Dextrose IVPB 250 mls/hr Q24H COLBY Administration Protocol Metoprolol Succinate 50 mg 12/02/19 22:00 12/03/19 21:21 Toprol Xl - PO 50 mg HS COLBY Administration Non-Formulary Medication 0.08 ml 12/03/19 14:35 Teriparatide [Forteo] SQ DAILY COLBY Oxycodone HCl 5 mg 12/02/19 18:15 12/04/19 08:43 Roxicodone - PO 5 mg Q6H PRN Administration PAIN LEVEL 4 - 6 Pantoprazole Sodium 40 mg 12/02/19 10:00 12/04/19 11:36 Protonix - PO 40 mg DAILY COLBY Administration Prednisone 2.5 mg 12/03/19 10:00 12/04/19 11:36 Deltasone - PO 2.5 mg DAILY COLBY Administration Sodium Chloride 1 gm 12/02/19 10:00 12/04/19 11:35 Sodium Chloride Tablet - PO 1 gm DAILY COLBY Administration Valsartan 160 mg 12/02/19 10:00 12/04/19 10:01 Diovan - PO 160 mg DAILY COLBY Administration ASSESSMENT/PLAN: This is an 89 year old woman with a history of HTN, hyperlipidemia, PAF, PAD, recent left TMA, DVT, GERD, anemia, RA who presented to the ED with pain in both feet. 1. PAD with recent left TMA 11/03, now with dehiscence and infection of surgical wound, gangrene of both feet - Plan for BLE angiogram tomorrow - Continue Lipitor, Eliquis 2. Sepsis (tachycardia, tachypnea, leukocytosis) secondary to infected surgical wound - Continue Zosyn, vancomycin - Blood cultures negative after 24 hours - Methotrexate held secondary to infection 3. Paroxysmal atrial fib - Remains in sinus rhythm - Continue Cardizem CD, Toprol XL, Eliquis 4. HTN - Continue Diovan, Cardizem CD, Toprol XL 5. Hyperlipidemia - Continue Lipitor 6. History of DVT 7. GERD - Continue Protonix 8. Anemia - Likely secondary to chronic illness - Monitor hgb and transfuse as needed to keep hgb>8 9. Rheumatoid arthritis - Methotrexate held secondary to infection - Continue prednisone Visit type - Emergency Visit Emergency Visit: Yes ED Registration Date: 12/01/19 Care time: The patient presented to the Emergency Department on the above date and was hospitalized for further evaluation of their emergent condition. - New Patient This patient is new to me today: No - Critical Care Critical Care patient: No - Discharge Referral Referred to [facility] Med P.C.: No
--- NOTE | 2019-12-04 15:34 | SPA.PREOP ---
- PRE-OP NOTE Dx: PVD s/p left TMA with dehissance, right necrotic toes Planned Procedure: Angiogram with angioplasty Surgeon: Buddy Last Vital Signs Temp Pulse Resp BP Pulse Ox 98.8 F 76 20 130/64 95 12/04/19 09:49 12/04/19 09:49 12/04/19 09:49 12/04/19 09:49 12/03/19 21:00 Lab Results WBC 14.7 K/mm3 (4.0-10.0) H 12/04/19 08:45 RBC 2.87 M/mm3 (3.60-5.2) L 12/04/19 08:45 Hgb 8.2 GM/dL (10.7-15.3) L 12/04/19 08:45 Hct 25.9 % (32.4-45.2) L 12/04/19 08:45 MCV 90.4 fl (80-96) 12/04/19 08:45 MCHC 31.6 g/dl (32.0-36.0) L 12/04/19 08:45 RDW 17.1 % (11.6-15.6) H 12/04/19 08:45 Plt Count 331 K/MM3 (134-434) D 12/04/19 08:45 Sodium 135 mmol/L (136-145) L 12/04/19 08:45 Potassium 3.9 mmol/L (3.5-5.1) 12/04/19 08:45 Chloride 101 mmol/L (98-107) 12/04/19 08:45 Carbon Dioxide 27 mmol/L (21-32) 12/04/19 08:45 Anion Gap 7 MMOL/L (8-16) L 12/04/19 08:45 BUN 11.5 mg/dL (7-18) 12/04/19 08:45 Creatinine 0.3 mg/dL (0.55-1.3) L 12/04/19 08:45 Random Glucose 83 mg/dL (74-106) 12/04/19 08:45 Calcium 8.4 mg/dL (8.5-10.1) L 12/04/19 08:45 Blood Type A POSITIVE 12/02/19 08:40 Antibody Screen Negative 12/02/19 08:40 INR 1.40 (0.83-1.09) H 12/02/19 12:50 Problem List - Problems (1) PVD (peripheral vascular disease) Assessment/Plan: -plan for OR tomorrow 12/05 -NPO after midnight -DVT and GI prophylaxis as ordered -Consent to be obtained by surgeon after R/B/A discussed. Code(s): I73.9 - PERIPHERAL VASCULAR DISEASE, UNSPECIFIED
[2019-12-04] MEDS: TERIPARATIDE SQ SCH (17:45)
[2019-12-04] MEDS: ATORVASTATIN CA 10 MG TABLET (FP) PO SCH (21:45)
[2019-12-04] MEDS: VANCOMYCIN 750 MG in DEXTROSE 5%-WATER - 250 ML IVPB SCH (21:46)
[2019-12-05] MEDS ORDERED: PIPERACILLIN/TAZOBACTAM 3.375 GM VIAL IVPB ONE ×3 (01:08→18:19)
[2019-12-05] MEDS ORDERED: DEXTROSE 5%-WATER - 50 ML IVPB ONE ×3 (01:09→18:19)
[2019-12-05] MEDS: PIPERACILLIN/TAZOB 3.375 GM 3.375 GM in DEXTROSE 5%-WATER - 50 ML IVPB SCH ×3 (01:28→18:25)
[2019-12-05] MEDS: GABAPENTIN 300 MG CAPSULE PO SCH ×3 (05:19→21:34)
[2019-12-05] MEDS: HYDROmorphone HCl 2 MG/ML VIAL IVPB PRN ×2 (05:25→17:46)
--- NOTE | 2019-12-05 07:40 | PN ---
Physical Exam: SUBJECTIVE: Patient seen and examined complain of leg pain , early dose of dilauded given at 11 am NPO since mid night for angiogram today OBJECTIVE: Vital Signs Period Temp Pulse Resp BP Sys/Ying Pulse Ox Last 24 Hr 98.4 F-986 F 71-85 20-20 90-130/46-64 93-97 GENERAL: awake alert in mild distress HEAD: NC/AT EYES: EOMI, Conjunctiva clear, sclera anicteric ENT: dry mucous membrane NECK: Supple, no JVD LUNGS: CTA B/L, no crackles no wheezing no accessory muscle use. HEART: RRR, NSR, normal s1, s2, 4/6 systolic murmur ABDOMEN: Soft, ND, NT, +BS 4 Q, no CVA Tenderness LOWER EXTREMITIES: +2 edema, +2DP pulse,Gangrene of toes, 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 Left TMA wound open with gangrene of lateral foot and heel. NEUROLOGICAL: No focal deficit. Normal speech. gait not observed. PSYCHIATRIC: Cooperative. Good eye contact. SKIN: Warm, dry, Laboratory Results - last 24 hr 12/04/19 12/04/19 12/04/19 08:45 08:45 08:45 WBC 14.7 H RBC 2.87 L Hgb 8.2 L Hct 25.9 L MCV 90.4 MCH 28.6 MCHC 31.6 L RDW 17.1 H Plt Count 331 D MPV 7.1 L PTT (Actin FS) 31.1 Sodium 135 L Potassium 3.9 Chloride 101 Carbon Dioxide 27 Anion Gap 7 L BUN 11.5 Creatinine 0.3 L Est GFR (CKD-EPI)AfAm 117.65 Est GFR (CKD-EPI)NonAf 101.51 Random Glucose 83 Calcium 8.4 L Active Medications Generic Name Dose Route Start Last Admin Trade Name Freq PRN Reason Stop Dose Admin Acetaminophen 650 mg 12/01/19 23:03 Tylenol - PO Q6H PRN PAIN LEVEL 1-3 Amino Acids 30 ml 12/03/19 17:30 12/04/19 18:26 Prosource No Carb Liquid Pkt PO Not Given BID@0800,1730 COLBY Apixaban 2.5 mg 12/04/19 11:00 12/04/19 21:45 Eliquis - PO 2.5 mg BID COLBY Administration Atorvastatin Calcium 10 mg 12/02/19 22:00 12/04/19 21:45 Lipitor - PO 10 mg HS COLBY Administration Diltiazem HCl 180 mg 12/02/19 10:00 12/04/19 10:02 Cardizem Cd - PO 180 mg DAILY COLBY Administration Escitalopram Oxalate 20 mg 12/02/19 10:00 12/04/19 11:35 Lexapro - PO 20 mg DAILY COLBY Administration Gabapentin 300 mg 12/02/19 06:00 12/05/19 05:19 Neurontin - PO Not Given TID COLBY Hydromorphone HCl 2 mg 12/02/19 18:15 12/05/19 05:25 Dilaudid Vial - IVPB 2 mg Q6H PRN Administration PAIN LEVEL 7 - 10 Piperacillin Sod/Tazobactam 50 mls @ 100 mls/hr 12/02/19 10:00 12/05/19 01:28 Sod 3.375 gm/ Dextrose IVPB 100 mls/hr Q8H-IV COLBY Administration Protocol Vancomycin HCl 750 mg/ 250 mls @ 250 mls/hr 12/02/19 20:00 12/04/19 21:46 Dextrose IVPB 250 mls/hr Q24H COLBY Administration Protocol Metoprolol Succinate 50 mg 12/02/19 22:00 12/04/19 21:41 Toprol Xl - PO Not Given HS COLBY Non-Formulary Medication 0.08 ml 12/03/19 14:35 12/04/19 17:45 Teriparatide [Forteo] SQ 0.08 ml DAILY COLBY Administration Oxycodone HCl 5 mg 12/02/19 18:15 12/04/19 08:43 Roxicodone - PO 5 mg Q6H PRN Administration PAIN LEVEL 4 - 6 Pantoprazole Sodium 40 mg 12/02/19 10:00 12/04/19 11:36 Protonix - PO 40 mg DAILY COLBY Administration Prednisone 2.5 mg 12/03/19 10:00 12/04/19 11:36 Deltasone - PO 2.5 mg DAILY COLBY Administration Sodium Chloride 1 gm 12/02/19 10:00 12/04/19 11:35 Sodium Chloride Tablet - PO 1 gm DAILY COLBY Administration Valsartan 160 mg 12/02/19 10:00 12/04/19 10:01 Diovan - PO 160 mg DAILY COLBY Administration CBC, BMP 12/05/19 08:10 12/05/19 08:10 ASSESSMENT/PLAN: 89 y/o F with a PMHx of HTN, GERD, HLD, DVT on chronic AC (eliquis), severe PVD s/p LLE angioplasty, s/p Lt TMA on 11/03 presenting with b/l leg pain. Pt is in severe sharp pain worse in the RLE, associated with warmth and redness. Pt's son at bedside providing most of the history. #PAD with recent left TMA 11/03, now with dehiscence and infection of surgical wound, gangrene of both feet * had an angigram today with disease limited to right foot , BKA offer for family and will be decided, amber on board * cont eliquis and lipitor * pain control with dilauded and oxycodone and kade pentin * resume diet #Sepsis 2/2 foot gangreen * cont abx vanc/zosyn * IV fluids * blood cx negative cont to follow * held methotrexat due to infection * #Paroxysmal A. fibwith RVR #HTN cont diovan * SR for now * cont cardizim, toprol and eliquis #Normocytic Anemia, chronic , monitor H/H daily , * normal transfusion threshold below 8 * likely due to chronic disease #HLD Cont lipitor # Hypoglycemia : D5 NS @ 42 CC /hr , resume diet # constipation likely due to immobility and pain medication , can start on Miralax 17 mg daily # malnourished : high protein diet BMI 18.6 # H/O DVT #RA * continue 2.5 prednisone and hold methotrexate due to infection #GERD * Continue protonix #Parkinsonism * Continue with home dose Sinemet # FEN * D5 NS @ 42 cc/hr * Monitor lytes * NS controlled diabetic diet # proph : * DVT on ELiquis * GI on PPI # Dispo : M/S Visit type - Emergency Visit Emergency Visit: Yes ED Registration Date: 12/01/19 Care time: The patient presented to the Emergency Department on the above date and was hospitalized for further evaluation of their emergent condition. - New Patient This patient is new to me today: Yes Date on this admission: 12/05/19 - Critical Care Critical Care patient: No - Discharge Referral Referred to [facility] Med P.C.: No ATTENDING PHYSICIAN STATEMENT I saw and evaluated the patient. I reviewed the resident's note and discussed the case with the resident. I agree with the resident's findings and plan as documented. SUBJECTIVE: OBJECTIVE: ASSESSMENT AND PLAN:
[2019-12-05 09:04] LABS: BASO % 0.2 % (0-2.0); HEMATOCRIT 26.1 % (32.4-45.2); HEMOGLOBIN 8.3 GM/dL (10.7-15.3); LYMPH % 19.2 % (8-40); MCH 28.7 pg (25.7-33.7); MEAN CELL VOLUME 89.8 fl (80-96); MEAN PLT VOLUME 7.2 fl (7.5-11.1); MONO % 9.6 % (3.8-10.2); PLATELET COUNT 328 K/MM3 (134-434); RDW 17.1 % (11.6-15.6); WHITE BLOOD COUNT 12.5 K/mm3 (4.0-10.0)
[2019-12-05] MEDS: AMINO ACIDS/PROTEIN HYDROLYS 30 ML LIQUID.PKT PO SCH ×2 (09:09→17:38)
[2019-12-05] MEDS ORDERED: HYDROmorphone HCl 2 MG/ML VIAL IVPB ONE (09:32)
[2019-12-05 09:38] LABS: CALCIUM 8.5 mg/dL (8.5-10.1); CREATININE 0.3 mg/dL (0.55-1.3); POTASSIUM 3.7 mmol/L (3.5-5.1)
[2019-12-05] MEDS ORDERED: METHOTREXATE 2.5 MG TABLET PO SCH (10:00)
[2019-12-05] MEDS ORDERED: DEXTROSE 5%-NORMAL SALINE 1,000 ML IV SCH ×2 (10:15→16:06)
[2019-12-05] MEDS: predniSONE 5 MG TABLET (UD) PO SCH (11:33)
[2019-12-05] MEDS: PANTOPRAZOLE 40 MG TABLET PO SCH (11:34)
[2019-12-05] MEDS: VALSARTAN 160 MG TABLET (UD) PO SCH (11:34)
[2019-12-05] MEDS: ESCITALOPRAM OXALATE 20 MG TABLET PO SCH (11:34)
[2019-12-05] MEDS: SODIUM CHLORIDE 1 GM TABLET PO SCH (11:34)
[2019-12-05] MEDS ORDERED: HEPARIN NA (PORCINE) 5,000 UNITS/ML 1ML VIAL ONE (12:26)
--- NOTE | 2019-12-05 13:03 | PN ---
Teaching Attending Note Name of Resident: Antwan Lynn ATTENDING PHYSICIAN STATEMENT I saw and evaluated the patient. I reviewed the resident's note and discussed the case with the resident. I agree with the resident's findings and plan as documented. SUBJECTIVE: Patient complains of pain in her feet. OBJECTIVE: Vital Signs Period Temp Pulse Resp BP Sys/Ying Pulse Ox Last 24 Hr 98.3 F-99.3 F 75-88 20-24 90-141/46-62 93 GENERAL: The patient is awake, alert, and in no acute distress. LUNGS: Breath sounds equal, clear to auscultation bilaterally, no wheezes, no crackles, no accessory muscle use. HEART: Regular rate and rhythm, S1, S2, (+) 3/6 SM, no rub or gallop. ABDOMEN: Soft, nontender, nondistended, normoactive bowel sounds, no guarding, no rebound, no hepatosplenomegaly, no masses. EXTREMITIES: Gangrene of toes, 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 Left TMA wound open with gangrene of lateral foot and heel. Laboratory Results - last 24 hr 12/05/19 12/05/19 12/05/19 08:10 08:10 08:10 WBC 12.5 H RBC 2.90 L Hgb 8.3 L Hct 26.1 L MCV 89.8 MCH 28.7 MCHC 32.0 RDW 17.1 H Plt Count 328 MPV 7.2 L Absolute Neuts (auto) 8.7 H Neutrophils % 70.0 Lymphocytes % 19.2 D Monocytes % 9.6 Eosinophils % 1.0 D Basophils % 0.2 Nucleated RBC % 0 PTT (Actin FS) 30.7 Sodium 138 Potassium 3.7 Chloride 103 Carbon Dioxide 28 Anion Gap 6 L BUN 11.0 Creatinine 0.3 L Est GFR (CKD-EPI)AfAm 117.65 Est GFR (CKD-EPI)NonAf 101.51 Random Glucose 79 Calcium 8.5 Current Medications Generic Name Dose Route Start Last Admin Trade Name Freq PRN Reason Stop Dose Admin Acetaminophen 650 mg 12/01/19 23:03 Tylenol - PO Q6H PRN PAIN LEVEL 1-3 Amino Acids 30 ml 12/03/19 17:30 12/05/19 09:09 Prosource No Carb Liquid Pkt PO Not Given BID@0800,1730 [facility] Apixaban 2.5 mg 12/04/19 11:00 12/04/19 21:45 Eliquis - PO 2.5 mg BID [facility] Administration Atorvastatin Calcium 10 mg 12/02/19 22:00 12/04/19 21:45 Lipitor - PO 10 mg HS [facility] Administration Diltiazem HCl 180 mg 12/02/19 10:00 12/05/19 11:33 Cardizem Cd - PO 180 mg DAILY [facility] Administration Escitalopram Oxalate 20 mg 12/02/19 10:00 12/05/19 11:34 Lexapro - PO Not Given DAILY [facility] Gabapentin 300 mg 12/02/19 06:00 12/05/19 05:19 Neurontin - PO Not Given TID [facility] Hydromorphone HCl 2 mg 12/02/19 18:15 12/05/19 05:25 Dilaudid Vial - IVPB 2 mg Q6H PRN Administration PAIN LEVEL 7 - 10 Piperacillin Sod/Tazobactam 50 mls @ 100 mls/hr 12/02/19 10:00 12/05/19 11:24 Sod 3.375 gm/ Dextrose IVPB 100 mls/hr Q8H-IV [facility] Administration Protocol Vancomycin HCl 750 mg/ 250 mls @ 250 mls/hr 12/02/19 20:00 12/04/19 21:46 Dextrose IVPB 250 mls/hr Q24H [facility] Administration Protocol Dextrose/Sodium Chloride 1,000 mls @ 42 mls/hr 12/05/19 10:15 12/05/19 11:24 D5-Ns - IV 42 mls/hr ASDIR [facility] Administration Metoprolol Succinate 50 mg 12/02/19 22:00 12/04/19 21:41 Toprol Xl - PO Not Given HS [facility] Non-Formulary Medication 0.08 ml 12/03/19 14:35 12/04/19 17:45 Teriparatide [Forteo] SQ 0.08 ml DAILY [facility] Administration Oxycodone HCl 5 mg 12/02/19 18:15 12/04/19 08:43 Roxicodone - PO 5 mg Q6H PRN Administration PAIN LEVEL 4 - 6 Pantoprazole Sodium 40 mg 12/02/19 10:00 12/05/19 11:34 Protonix - PO Not Given DAILY [facility] Prednisone 2.5 mg 12/03/19 10:00 12/05/19 11:33 Deltasone - PO Not Given DAILY [facility] Sodium Chloride 1 gm 12/02/19 10:00 12/05/19 11:34 Sodium Chloride Tablet - PO Not Given DAILY [facility] Valsartan 160 mg 12/02/19 10:00 12/05/19 11:34 Diovan - PO 160 mg DAILY [facility] Administration ASSESSMENT AND PLAN: This is an 89 year old woman with a history of HTN, hyperlipidemia, PAF, PAD, recent left TMA, DVT, GERD, anemia, RA who presented to the ED with pain in both feet. 1. PAD with recent left TMA 11/03, now with dehiscence and infection of surgical wound, gangrene of both feet - BLE angiogram today - Continue Lipitor, Eliquis 2. Sepsis (tachycardia, tachypnea, leukocytosis) secondary to infected surgical wound - Continue Zosyn, vancomycin - Blood cultures negative after 48 hours - Methotrexate held secondary to infection 3. Paroxysmal atrial fib - Remains in sinus rhythm - Continue Cardizem CD, Toprol XL, Eliquis 4. HTN - Continue Diovan, Cardizem CD, Toprol XL 5. Hyperlipidemia - Continue Lipitor 6. History of DVT 7. GERD - Continue Protonix 8. Anemia - Likely secondary to chronic illness - Monitor hgb and transfuse as needed to keep hgb>8 9. Rheumatoid arthritis - Methotrexate held secondary to infection - Continue prednisone
[2019-12-05] MEDS ORDERED: MIDAZOLAM HCL 2 MG/2 ML SINGLE DOSE VIAL ONE (14:11)
[2019-12-05] MEDS ORDERED: ceFAZolin SODIUM 1 GM VIAL IVPB ONE (14:35)
[2019-12-05] MEDS ORDERED: PROPOFOL 20 ML ONE (14:43)
[2019-12-05] MEDS ORDERED: ONDANSETRON 4 MG/2 ML VIAL IVPUSH PRN ×2 (14:46→16:06)
[2019-12-05] MEDS ORDERED: HYDROmorphone HCl 2 MG/ML VIAL IVPB PRN (16:06)
--- NOTE | 2019-12-05 16:06 | PN ---
Progress Note (short form) - Note Progress Note: Vascular Surgery S/P angiogram of bl lower ext. Spoke to family at length after the surgery. Pt can get left bka. pt has adequate circulation. Pt has disease only in the right foot, the rest of the circulation is patent. Pt has gangrene of right foot. Will probably need bka on that side as well. I spoke to the son, they will think about if they want to proceed. Will be on standby Moose Goodwin DO
--- NOTE | 2019-12-05 16:20 | OP ---
Operative Note - Note: Operative Date: 12/05/19 Pre-Operative Diagnosis: bl foot gangrene Operation: Aortogram, bl lower lower extremity angiogram Findings: left leg - good flow into foot via AT right foot - good flow up to ankle. disease is all in the foot Post-Operative Diagnosis: Same as Pre-op Surgeon: Moose Goodwin Anesthesia: Fractional Estimated Blood Loss (mls): 50 Operative Report Dictated: Yes
--- NOTE | 2019-12-05 16:25 | PN ---
Progress Note (short form) - Note Progress Note: Podiatry F/U: Seen/evaluated at bedside NAD. S/p angiogram with Dr. Goodwin today. Still having persistent pain to both feet. Afebrile. DEB: Pedal pulses nonpalpable, TG wnl, CFT absent to all digits on the right foot. There is left tma dehiscence site with fibrotic base, dusky and cool plantar flap, no purulent drainage, no fluctuance, no streaking cellulitis, no signs of active infection. There is right dry gangrene of the forefoot, unchanged, no purulence, no fluctuance, no streaking cellulitis, no signs of active infection. Significant tenderness to bilateral feet. Imp: 89 year old female, severe PAD, with gangrene right foot and failed TMA left foot 1. Pain control 2. Continue local care 3. Discussed case at length with patient's son, will likely want to treat palliatively 4. Will follow Isac Loya, BRENDAN
[2019-12-05] MEDS ORDERED: PT OWN MED DRAWER 7, Y5N ONE (20:16)
[2019-12-05] MEDS: POLYETHYLENE GLYCOL 3350 119 GM BTL PO SCH (20:28)
[2019-12-05] MEDS: oxyCODONE HCL 5 MG TABLET PO PRN (21:34)
[2019-12-05] MEDS: APIXABAN 2.5 MG TABLET PO SCH (21:34)
[2019-12-05] MEDS: ATORVASTATIN CA 10 MG TABLET (FP) PO SCH (21:34)
[2019-12-05] MEDS: VANCOMYCIN 750 MG in DEXTROSE 5%-WATER - 250 ML IVPB SCH (22:19)
[2019-12-06] MEDS ORDERED: PIPERACILLIN/TAZOBACTAM 3.375 GM VIAL IVPB ONE ×3 (01:02→17:51)
[2019-12-06] MEDS ORDERED: DEXTROSE 5%-WATER - 50 ML IVPB ONE ×3 (01:02→17:51)
[2019-12-06] MEDS: PIPERACILLIN/TAZOB 3.375 GM 3.375 GM in DEXTROSE 5%-WATER - 50 ML IVPB SCH ×3 (01:17→17:53)
[2019-12-06] MEDS: GABAPENTIN 300 MG CAPSULE PO SCH ×3 (06:51→21:29)
[2019-12-06] MEDS: TERIPARATIDE SQ SCH ×2 (07:15→09:52)
[2019-12-06 08:31] LABS: BASO % 0.3 % (0-2.0); EOS % 0.2 % (0-4.5); HEMATOCRIT 28.2 % (32.4-45.2); LYMPH % 8.3 % (8-40); MCH 28.7 pg (25.7-33.7); MEAN CELL VOLUME 89.6 fl (80-96); MONO % 8.5 % (3.8-10.2); NEUT % 82.7 % (42.8-82.8); PLATELET COUNT 371 K/MM3 (134-434); RBC 3.15 M/mm3 (3.60-5.2); RDW 16.2 % (11.6-15.6); WHITE BLOOD COUNT 17.6 K/mm3 (4.0-10.0)
[2019-12-06 09:04] LABS: ALBUMIN 2.1 g/dl (3.4-5.0); BILIRUBIN,TOTAL 0.6 mg/dL (0.2-1); BLOOD UREA NITROGEN 6.7 mg/dL (7-18); CALCIUM 8.6 mg/dL (8.5-10.1); CREATININE 0.4 mg/dL (0.55-1.3); POTASSIUM 3.3 mmol/L (3.5-5.1); TOT PROT 4.9 g/dl (6.4-8.2)
--- NOTE | 2019-12-06 09:10 | PN ---
Physical Exam: SUBJECTIVE: Patient seen and examined at bed side , had fever over night , POD#1 , seems comfortable in bed later today around 10 am develop some shortness of breath and CXR was ordered shows some bibasilar atelectasis and PE with crackles fluids was dc and 20 IV lasix given pain is better controlled OBJECTIVE: Vital Signs Period Temp Pulse Resp BP Sys/Ying Pulse Ox Last 24 Hr 98.1 F-101 F 16-106 16-103 104-144/46-728 97-100 GENERAL: awake alert in mild distress HEAD: NC/AT EYES: EOMI, Conjunctiva clear, sclera anicteric ENT: dry mucous membrane NECK: Supple, no JVD LUNGS: Bibasilar crackles HEART: RRR, NSR, normal s1, s2, 4/6 systolic murmur ABDOMEN: Soft, ND, NT, +BS 4 Q, no CVA Tenderness LOWER EXTREMITIES: +2 edema, +2DP pulse,Gangrene of toes, 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 Left TMA wound open with gangrene of lateral foot and heel. NEUROLOGICAL: No focal deficit. Normal speech. gait not observed. PSYCHIATRIC: Cooperative. Good eye contact. SKIN: Warm, dry, Laboratory Results - last 24 hr 12/05/19 12/05/19 12/06/19 08:10 08:10 07:52 WBC RBC Hgb Hct MCV MCH MCHC RDW Plt Count MPV Absolute Neuts (auto) Neutrophils % Lymphocytes % Monocytes % Eosinophils % Basophils % Nucleated RBC % PTT (Actin FS) 30.7 31.8 Sodium 138 Potassium 3.7 Chloride 103 Carbon Dioxide 28 Anion Gap 6 L BUN 11.0 Creatinine 0.3 L Est GFR (CKD-EPI)AfAm 117.65 Est GFR (CKD-EPI)NonAf 101.51 Random Glucose 79 Calcium 8.5 Total Bilirubin AST ALT Alkaline Phosphatase Total Protein Albumin 12/06/19 12/06/19 07:52 07:52 WBC 17.6 H RBC 3.15 L Hgb 9.0 L Hct 28.2 L MCV 89.6 MCH 28.7 MCHC 32.0 RDW 16.2 H Plt Count 371 MPV 7.0 L Absolute Neuts (auto) 14.5 H Neutrophils % 82.7 Lymphocytes % 8.3 D Monocytes % 8.5 Eosinophils % 0.2 Basophils % 0.3 Nucleated RBC % 0 PTT (Actin FS) Sodium 136 Potassium 3.3 L Chloride 100 Carbon Dioxide 30 Anion Gap 7 L BUN 6.7 L Creatinine 0.4 L Est GFR (CKD-EPI)AfAm 107.03 Est GFR (CKD-EPI)NonAf 92.34 Random Glucose 110 H Calcium 8.6 Total Bilirubin 0.6 AST 32 ALT 27 Alkaline Phosphatase 88 Total Protein 4.9 L Albumin 2.1 L Active Medications Generic Name Dose Route Start Last Admin Trade Name Freq PRN Reason Stop Dose Admin Acetaminophen 650 mg 12/05/19 16:06 Tylenol - PO Q6H PRN PAIN LEVEL 1-3 Amino Acids 30 ml 12/05/19 17:30 12/05/19 17:38 Prosource No Carb Liquid Pkt PO Not Given BID@0800,1730 [facility] Apixaban 2.5 mg 12/05/19 22:00 12/05/19 21:34 Eliquis - PO 2.5 mg BID [facility] Administration Atorvastatin Calcium 10 mg 12/05/19 22:00 12/05/19 21:34 Lipitor - PO 10 mg HS [facility] Administration Diltiazem HCl 180 mg 12/06/19 10:00 Cardizem Cd - PO DAILY [facility] Escitalopram Oxalate 20 mg 12/06/19 10:00 Lexapro - PO DAILY [facility] Fentanyl 25 mcg 12/05/19 16:06 12/05/19 15:33 Sublimaze Injection - IVPUSH 12/06/19 14:45 50 mcg [id number] PRN Administration PAIN-PACU ORDER X 4 DOSES ONLY Gabapentin 300 mg 12/05/19 22:00 12/06/19 06:51 Neurontin - PO 300 mg TID [facility] Administration Hydromorphone HCl 2 mg 12/05/19 17:18 12/05/19 17:46 Dilaudid Vial - IVPB 2 mg Q4H PRN Administration PAIN LEVEL 7 - 10 Dextrose/Sodium Chloride 1,000 mls @ 42 mls/hr 12/05/19 16:06 12/05/19 17:44 D5-Ns - IV Not Given ASDIR [facility] Vancomycin HCl 750 mg/ 250 mls @ 250 mls/hr 12/05/19 20:00 12/05/19 22:19 Dextrose IVPB 250 mls/hr Q24H [facility] Administration Protocol Piperacillin Sod/Tazobactam 50 mls @ 100 mls/hr 12/05/19 18:00 12/06/19 01:17 Sod 3.375 gm/ Dextrose IVPB 100 mls/hr Q8H-IV [facility] Administration Protocol Metoprolol Succinate 50 mg 12/05/19 22:00 12/05/19 21:34 Toprol Xl - PO 50 mg HS [facility] Administration Non-Formulary Medication 0.08 ml 12/06/19 10:00 Teriparatide [Forteo] SQ DAILY [facility] Ondansetron HCl 4 mg 12/05/19 16:06 Zofran Injection IVPUSH 12/06/19 14:45 Q6H PRN NAUSEA AND/OR VOMITING Oxycodone HCl 5 mg 12/05/19 16:06 12/05/19 21:34 Roxicodone - PO 5 mg Q6H PRN Administration PAIN LEVEL 4 - 6 Pantoprazole Sodium 40 mg 12/06/19 10:00 Protonix - PO DAILY [facility] Polyethylene Glycol 17 gm 12/05/19 19:45 12/05/19 20:28 Miralax (For Daily Use) - PO 17 gm DAILY [facility] Administration Prednisone 2.5 mg 12/06/19 10:00 Deltasone - PO DAILY [facility] Sodium Chloride 1 gm 12/06/19 10:00 Sodium Chloride Tablet - PO DAILY [facility] Valsartan 160 mg 12/06/19 10:00 Diovan - PO DAILY [facility] CBC, BMP 12/06/19 07:52 12/06/19 07:52 ASSESSMENT/PLAN: 89 y/o F with a PMHx of HTN, GERD, HLD, DVT on chronic AC (eliquis), severe PVD s/p LLE angioplasty, s/p Lt TMA on 11/03 presenting with b/l leg pain. Pt is in severe sharp pain worse in the RLE, associated with warmth and redness. Pt's son at bedside providing most of the history. #PAD with recent left TMA 11/03, now with dehiscence and infection of surgical wound, gangrene of both feet * had an angiogram today with disease limited to right foot , BKA offer for family and will be decided, vascualr on board * cont eliquis and lipitor * pain control with dilauded and oxycodone and kade pentin * resume diet * Angiogram reviewed #Sepsis 2/2 foot gangreen * cont abx vanc/zosyn * vanco trough * IV fluids dc due to cxr congestion * blood cx negative cont to follow * held methotrexat due to infection # SOB due to volume over loaded * DC fludis * 20 lasix IV push once * sat 95 % on 2 l NC #Paroxysmal A. fibwith RVR #HTN * cont diovan * NSR for now * cont cardizim, toprol and eliquis #Normocytic Anemia, chronic , monitor H/H daily , * normal transfusion threshold below 8 * likely due to chronic disease #HLD Cont lipitor # Hypoglycemia :resolved resume diet # Hypokalemia replinished 20 pO potassium # constipation likely due to immobility and pain medication , can start on Miralax 17 mg daily # malnourished : high protein diet BMI 18.6 # H/O DVT #RA * continue 2.5 prednisone and hold methotrexate due to infection #GERD * Continue protonix #Parkinsonism * Continue with home dose Sinemet # Sever protien calorie malnutrition , evidenced by moderate subcutaneous fat loss around orbital and upper arm regions , moderate muscle loss around temporal and calvicular regions clinical indicators BMI 18.6,WT 105 LB, average intake less than nutritional needs ALB 2.8-2.1 total loss protien drop from 6.0- 4.9 risk factors wound healing advance age , chronic illness will start Magic cup prosurce BID # FEN * no standing fluids * Monitor lytes * NS controlled diabetic diet # proph : * DVT on ELiquis 2.5 BID * GI on PPI # Dispo : M/S for familyd to decide about BKA Visit type - Emergency Visit Emergency Visit: Yes ED Registration Date: 12/01/19 Care time: The patient presented to the Emergency Department on the above date and was hospitalized for further evaluation of their emergent condition. - New Patient This patient is new to me today: No - Critical Care Critical Care patient: No ATTENDING PHYSICIAN STATEMENT I saw and evaluated the patient. I reviewed the resident's note and discussed the case with the resident. I agree with the resident's findings and plan as documented. SUBJECTIVE: OBJECTIVE: ASSESSMENT AND PLAN:
[2019-12-06] MEDS ORDERED: DEXTROSE 5%-NORMAL SALINE 1,000 ML IV SCH ×2 (09:11→10:12)
[2019-12-06] MEDS ORDERED: ESCITALOPRAM OXALATE 10 MG TABLET ONE (09:40)
[2019-12-06] MEDS: predniSONE 5 MG TABLET (UD) PO SCH (09:44)
[2019-12-06] MEDS: VALSARTAN 160 MG TABLET (UD) PO SCH (09:45)
[2019-12-06] MEDS: ESCITALOPRAM OXALATE 20 MG TABLET PO SCH (09:45)
[2019-12-06] MEDS: APIXABAN 2.5 MG TABLET PO SCH ×2 (09:45→21:28)
[2019-12-06] MEDS: ACETAMINOPHEN 325 MG TABLET (FP) PO PRN (09:46)
[2019-12-06] MEDS: PANTOPRAZOLE 40 MG TABLET PO SCH (09:46)
[2019-12-06] MEDS: AMINO ACIDS/PROTEIN HYDROLYS 30 ML LIQUID.PKT PO SCH ×2 (09:47→17:53)
[2019-12-06] MEDS: SODIUM CHLORIDE 1 GM TABLET PO SCH (09:47)
[2019-12-06] MEDS: oxyCODONE HCL 5 MG TABLET PO PRN (09:48)
[2019-12-06] MEDS: POLYETHYLENE GLYCOL 3350 119 GM BTL PO SCH (09:52)
[2019-12-06] MEDS ORDERED: POTASSIUM CHLORIDE TABS 20 MEQ TABLET.ER (FP) PO ONE (10:15)
--- NOTE | 2019-12-06 11:05 | PN ---
Progress Note (short form) - Note Progress Note: Surgery POD # 1 bl Aortogram, bl lower lower extremity angiogram patient seen and examined at bedside with no new complaints. Patient states her pain is controlled. Vital Signs Temp 100 F H 12/06/19 09:53 Pulse 98 H 12/06/19 09:53 Resp 18 12/06/19 09:53 BP 140/63 12/06/19 09:53 Pulse Ox 99 12/05/19 16:50 Intake & Output 12/05/19 12/05/19 12/06/19 11:59 23:59 11:59 Intake Total 500 1686 536 Output Total 50 Balance 500 1636 536 Intake: IV 1236 336 D5-Ns - 1,000 ml @ 42 mls 336 336 /hr IV ASDIR [facility] Rx#: [id number] IVPB 500 350 50 Oral 0 100 150 Output: Estimated Blood Loss 50 Other: Voiding Method Diaper Incontinent # Unmeasured Voids Void 1 1 1 Bowel Movement No No Yes # Bowel Movements 1 Weight Measurement Method Built in [facility] CBC, BMP 12/06/19 07:52 12/06/19 07:52 PE: Alert in NAD, resting comfortably B/L groin clean and dry with no evidence of hematoma. b/l thighs warm, soft and non-tender. b/l LE compartments soft, supple and non-tender. B/L feet dressings c/d/I. Problem List - Problems (1) PVD (peripheral vascular disease) Assessment/Plan: POD #1 angiogram of b/l LE doing well -Surgical plan pending- See Dr Goodwin's post op note 12/05 -Continue current wound care - DVT and GI prophylaxis Code(s): I73.9 - PERIPHERAL VASCULAR DISEASE, UNSPECIFIED
[2019-12-06] MEDS ORDERED: FUROSEMIDE 40 MG/4 ML INJECTABLE VIAL IVPUSH ONE (11:19)
[2019-12-06] MEDS: HYDROmorphone HCl 2 MG/ML VIAL IVPB PRN (11:48)
--- NOTE | 2019-12-06 14:11 | PN ---
Teaching Attending Note Name of Resident: Antwan Lynn ATTENDING PHYSICIAN STATEMENT I saw and evaluated the patient. I reviewed the resident's note and discussed the case with the resident. I agree with the resident's findings and plan as documented. SUBJECTIVE: Patient says pain in feet is better controlled. OBJECTIVE: Vital Signs Period Temp Pulse Resp BP Sys/Ying Pulse Ox Last 24 Hr 98.1 F-101 F 16-106 16-103 104-144/46-728 98-100 GENERAL: The patient is awake, alert, and in no acute distress. LUNGS: Breath sounds equal, clear to auscultation bilaterally, no wheezes, no crackles, no accessory muscle use. HEART: Regular rate and rhythm, S1, S2, (+) 3/6 SM, no rub or gallop. ABDOMEN: Soft, nontender, nondistended, normoactive bowel sounds, no guarding, no rebound, no hepatosplenomegaly, no masses. EXTREMITIES: Both feet wrapped. Laboratory Results - last 24 hr 12/06/19 12/06/19 12/06/19 07:52 07:52 07:52 WBC 17.6 H RBC 3.15 L Hgb 9.0 L Hct 28.2 L MCV 89.6 MCH 28.7 MCHC 32.0 RDW 16.2 H Plt Count 371 MPV 7.0 L Absolute Neuts (auto) 14.5 H Neutrophils % 82.7 Lymphocytes % 8.3 D Monocytes % 8.5 Eosinophils % 0.2 Basophils % 0.3 Nucleated RBC % 0 PTT (Actin FS) 31.8 Sodium 136 Potassium 3.3 L Chloride 100 Carbon Dioxide 30 Anion Gap 7 L BUN 6.7 L Creatinine 0.4 L Est GFR (CKD-EPI)AfAm 107.03 Est GFR (CKD-EPI)NonAf 92.34 Random Glucose 110 H Calcium 8.6 Total Bilirubin 0.6 AST 32 ALT 27 Alkaline Phosphatase 88 Total Protein 4.9 L Albumin 2.1 L Current Medications Generic Name Dose Route Start Last Admin Trade Name Freq PRN Reason Stop Dose Admin Acetaminophen 650 mg 12/05/19 16:06 12/06/19 09:46 Tylenol - PO 650 mg Q6H PRN Administration PAIN LEVEL 1-3 Amino Acids 30 ml 12/05/19 17:30 12/06/19 09:47 Prosource No Carb Liquid Pkt PO 30 ml BID@0800,1730 [facility] Administration Apixaban 2.5 mg 12/05/19 22:00 12/06/19 09:45 Eliquis - PO 2.5 mg BID [facility] Administration Atorvastatin Calcium 10 mg 12/05/19 22:00 12/05/19 21:34 Lipitor - PO 10 mg HS [facility] Administration Diltiazem HCl 180 mg 12/06/19 10:00 12/06/19 09:48 Cardizem Cd - PO 180 mg DAILY [facility] Administration Escitalopram Oxalate 20 mg 12/06/19 10:00 12/06/19 09:45 Lexapro - PO 20 mg DAILY [facility] Administration Fentanyl 25 mcg 12/05/19 16:06 12/05/19 15:33 Sublimaze Injection - IVPUSH 12/06/19 14:45 50 mcg [id number] PRN Administration PAIN-PACU ORDER X 4 DOSES ONLY Gabapentin 300 mg 12/05/19 22:00 12/06/19 06:51 Neurontin - PO 300 mg TID [facility] Administration Hydromorphone HCl 2 mg 12/05/19 17:18 12/06/19 11:48 Dilaudid Vial - IVPB 2 mg Q4H PRN Administration PAIN LEVEL 7 - 10 Vancomycin HCl 750 mg/ 250 mls @ 250 mls/hr 12/05/19 20:00 12/05/19 22:19 Dextrose IVPB 250 mls/hr Q24H [facility] Administration Protocol Piperacillin Sod/Tazobactam 50 mls @ 100 mls/hr 12/05/19 18:00 12/06/19 09:47 Sod 3.375 gm/ Dextrose IVPB 100 mls/hr Q8H-IV [facility] Administration Protocol Metoprolol Succinate 50 mg 12/05/19 22:00 12/05/19 21:34 Toprol Xl - PO 50 mg HS [facility] Administration Non-Formulary Medication 0.08 ml 12/06/19 10:00 12/06/19 09:52 Teriparatide [Forteo] SQ 0.08 ml DAILY [facility] Administration Ondansetron HCl 4 mg 12/05/19 16:06 Zofran Injection IVPUSH 12/06/19 14:45 Q6H PRN NAUSEA AND/OR VOMITING Oxycodone HCl 5 mg 12/05/19 16:06 12/06/19 09:48 Roxicodone - PO 5 mg Q6H PRN Administration PAIN LEVEL 4 - 6 Pantoprazole Sodium 40 mg 12/06/19 10:00 12/06/19 09:46 Protonix - PO 40 mg DAILY [facility] Administration Polyethylene Glycol 17 gm 12/05/19 19:45 12/06/19 09:52 Miralax (For Daily Use) - PO 17 gm DAILY [facility] Administration Prednisone 2.5 mg 12/06/19 10:00 12/06/19 09:44 Deltasone - PO 2.5 mg DAILY [facility] Administration Sodium Chloride 1 gm 12/06/19 10:00 12/06/19 09:47 Sodium Chloride Tablet - PO 1 gm DAILY [facility] Administration Valsartan 160 mg 12/06/19 10:00 12/06/19 09:45 Diovan - PO 160 mg DAILY [facility] Administration ASSESSMENT AND PLAN: This is an 89 year old woman with a history of HTN, hyperlipidemia, PAF, PAD, recent left TMA, DVT, GERD, anemia, RA who presented to the ED with pain in both feet. 1. PAD with recent left TMA 11/03, now with dehiscence and infection of surgical wound, gangrene of both feet - Continue Lipitor, Eliquis - Angiogram done 12/05 showed good flow into left foot via AT, good flow up to right ankle with disease in foot - Family considering bilateral BKA 2. Sepsis (tachycardia, tachypnea, leukocytosis) secondary to infected surgical wound - Continue Zosyn, vancomycin - Blood cultures negative after 72 hours - Methotrexate held secondary to infection 3. Hypokalemia - Replete potassium 4. Paroxysmal atrial fib - Remains in sinus rhythm - Continue Cardizem CD, Toprol XL, Eliquis 5. HTN - Continue Diovan, Cardizem CD, Toprol XL 6. Hyperlipidemia - Continue Lipitor 7. History of DVT 8. GERD - Continue Protonix 9. Anemia - Likely secondary to chronic illness - Hgb stable - Continue to monitor hgb and transfuse as needed to keep hgb>8 10. Rheumatoid arthritis - Methotrexate held secondary to infection - Continue prednisone
--- NOTE | 2019-12-06 15:56 | PN ---
Progress Note (short form) - Note Progress Note: Podiatry F/U: Seen/evaluated at bedside NAD. S/p angiogram . With son at bedside contemplating b/l bka. DEB: Pedal pulses nonpalpable, TG wnl, CFT absent to all digits on the right foot. There is left tma dehiscence site with fibrotic base, dusky and cool plantar flap, no purulent drainage, no fluctuance, no streaking cellulitis, no signs of active infection. There is right dry gangrene of the forefoot, unchanged, no purulence, no fluctuance, no streaking cellulitis, no signs of active infection. Significant tenderness to bilateral feet. Imp: 89 year old female, severe PAD, with gangrene right foot and failed TMA left foot Evaluated and reviewed discussed findings with patient and son; consoled at bedside contemplating bilate bka diffuse disease pst ankle in right, flow adequate on left for bka if needed will follow
--- NOTE | 2019-12-06 16:37 | PN ---
Progress Note (short form) - Note Progress Note: pain well controlled she is comfortable breathing improved after lasix today no diarrhea Vital Signs Period Temp Pulse Resp BP Sys/Ying Pulse Ox Last 24 Hr 97.9 F-101 F 73-106 18-103 106-144/55-70 99 cor-rrr lungs decreased bs at bases abd soft,n ext dressings intact arms with ecchymoses, no phlebitis cxray congestion CBC, BMP 12/06/19 07:52 12/06/19 07:52 Microbiology 12/02/19 17:00 Blood - Peripheral Venous Blood Culture - Preliminary NO GROWTH OBTAINED AFTER 72 HOURS, INCUBATION TO CONTINUE FOR 2 DAYS. 12/02/19 17:00 Blood - Peripheral Venous Blood Culture - Preliminary NO GROWTH OBTAINED AFTER 72 HOURS, INCUBATION TO CONTINUE FOR 2 DAYS. imp/reccd fever- new- cultures repeated continue vanco/zosyn day #5 check vanco trough incentive spirometer TMA infection/dehiscence- family to decide about furhter surgery pain mangement consult d/w son at bedside
--- NOTE | 2019-12-06 19:14 | CONSULT ---
Consult Consult Specialty:: pain medicine Referred by:: dr swanson Reason for Consultation:: le pain - History of Present Illness Chief Complaint: leg pain History of Present Illness: 89 year old woman known to me from previous lower back complaints and fractures. Currently she is being treated for her lower extremity pain secondary to arterial insufficiency. She and her family are considering bka. Chart reviewed. History obtained from nurse, dr swanson and aid as patient sleeping this evening - Past Medical History Cardio/Vascular: Yes: HTN, Hyperlipdemia Gastrointestinal: Yes: GERD Rheumatology: Yes: Rheumatoid Arthritis - Past Surgical History Past Surgical History: Yes: Cataract Removal, Laminectomy - Alcohol/Substance Use Hx Alcohol Use: No History of Substance Use: reports: None - Smoking History Smoking history: Never smoked Have you smoked in the past 12 months: No Aproximately how many cigarettes per day: 0 If you are a former smoker, when did you quit?: 50 years ago - Social History Usual Living Arrangement: Alone () ADL: Independent 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 History of Recent Travel: No Home Medications - Allergies Allergies/Adverse Reactions: Allergies Allergy/AdvReac Type Severity Reaction Status Date / Time No Known Allergies Allergy Verified 12/01/19 16:56 - Home Medications Home Medications: Ambulatory Orders Pantoprazole Sodium [Protonix -] 40 mg PO DAILY 03/06/14 Methotrexate [Mexate -] 7 tab PO Q7D 09/22/17 Teriparatide [Forteo] 0.8 ml SQ DAILY 09/14/19 Valsartan [Diovan] 160 mg PO DAILY tablet 09/26/19 Diltiazem HCl [Cartia Xt] 180 mg PO DAILY 10/31/19 Gabapentin [Neurontin -] 1 cap PO TID 10/31/19 Escitalopram Oxalate [Lexapro -] 1 tab PO DAILY 11/01/19 Metoprolol Succinate [Toprol Xl] 1 tab PO HS 11/01/19 predniSONE [Deltasone -] 2.5 mg PO DAILY 11/01/19 Acetaminophen [Acetaminophen ER] 650 mg PO Q6H 30 Days #120 tablet.er 11/06/19 Atorvastatin Ca [Lipitor] 10 mg PO HS 30 Days #30 tablet 11/06/19 Oxycodone HCl 5 mg PO Q6H PRN #15 tablet MDD 4 tab 01/13/20 Sodium Chloride Tablet - 1 gm PO DAILY 14 Days #14 tablet 11/06/19 Apixaban [Eliquis -] 2.5 mg PO BID 12/02/19 Physical Exam Vital Signs: Vital Signs Temperature 97.9 F 12/06/19 14:00 Pulse Rate 73 12/06/19 14:00 Respiratory Rate 20 12/06/19 14:00 Blood Pressure 106/55 L 12/06/19 14:00 O2 Sat by Pulse Oximetry (%) 99 12/06/19 09:00 Constitutional: Yes: Other (patient sleeping) Labs: CBC, BMP 12/06/19 07:52 12/06/19 07:52 Assessment/Plan Bilateral lower extremity pain secondary to vascular ischemia - at this time it was difficult to assess her as she was sleeping but according to the nurse and her aid she is more awake today --i would recommend her to continue oxycodone 5-10mg PO Q4h prn pain - consider restarting her oxycontin 10mg PO Q12h once she is more awake - use dilaudid only for severe pain 1mg IV - continue gabapentin 300mg PO Q8h
[2019-12-06] MEDS ORDERED: HYDROmorphone HCl 2 MG/ML VIAL IVPB PRN (19:26)
[2019-12-06] MEDS: VANCOMYCIN 750 MG in DEXTROSE 5%-WATER - 250 ML IVPB SCH (20:37)
[2019-12-06] MEDS: ATORVASTATIN CA 10 MG TABLET (FP) PO SCH (21:29)
--- NOTE | 2019-12-06 23:52 | OP ---
DATE OF OPERATION: 12/05/2019 PREOPERATIVE DIAGNOSIS: Gangrene bilateral feet. POSTOPERATIVE DIAGNOSIS: Gangrene bilateral feet. PROCEDURE: Aortogram and bilateral lower extremity angiogram. SURGEON: Moose Sales DO ANESTHESIA: Fractional. BLOOD LOSS: 20 mL INDICATIONS: Patient is an 89-year-old female that has a nonhealing TMA on the left foot and gangrene of the right foot toes. We decided that we would do an angiogram to look at the patency of the vessels. Patient was consented for the procedure, understanding all risks, benefits, and alternatives and taken to the operating room. DESCRIPTION OF PROCEDURE: Once on the operating room table, the patient was placed in the supine manner. The right and left groin were prepped and draped in the sterile surgical manner. We then went ahead and injected 10 mL of lidocaine 1% over the left common femoral artery. We then went ahead and took a micropuncture needle and punctured the left common femoral artery. Micropuncture wire was inserted. Micropuncture sheath was inserted. An additional 5-Nigerian sheath was inserted. We then shot an angiogram of the left lower extremity from that sheath showing that the common femoral artery, the profunda and the SFA were patent. The popliteal artery was patent. The stent there was patent. The anterior tibial artery was patent going down into the foot. TP trunk was patent. According to that angiogram, the patient would tolerate a left BKA if needed. I then went ahead and used a 0.035 floppy guidewire up into the aorta followed by the Omni Flush catheter. We then shot an aortogram showing the aorta and iliac arteries were without any disease. We then placed a 0.035 floppy guidewire up and over and Omni Flush catheter followed to the right common femoral artery. We then shot an angiogram of the right lower extremity showing that the common femoral artery, the profunda, the SFA, popliteal artery, and the TP trunk are all patent. AT basically is the main runoff going down into the foot. But once it gets into the foot, there is severe small vessel disease and there is poor circulation inside the foot. At this point, no intervention was needed. There were no areas of stenosis. We brought our Omni Flush catheter up and over, removed our sheath. Pressure was held over the left groin for 5 minutes. Afterwards there was no bleeding. The area was wet and dried. Dermabond was placed. Patient tolerated the procedure with no complications. Patient was transferred to PACU in stable condition. M[employer] SAL[employer] DO [id number]
[2019-12-07] MEDS ORDERED: PIPERACILLIN/TAZOBACTAM 3.375 GM VIAL IVPB ONE ×2 (00:26→09:49)
[2019-12-07] MEDS ORDERED: DEXTROSE 5%-WATER - 50 ML IVPB ONE ×2 (00:27→09:49)
[2019-12-07] MEDS: PIPERACILLIN/TAZOB 3.375 GM 3.375 GM in DEXTROSE 5%-WATER - 50 ML IVPB SCH ×2 (01:19→09:54)
--- NOTE | 2019-12-07 06:24 | PN ---
Physical Exam: SUBJECTIVE: Patient seen and examined at bed side , had fever over night , POD#2 , seems comfortable in bed pain controlled breathing is fine cont spirometry family to decide regarding surgery signs DNR/DNI pending placement OBJECTIVE: Vital Signs Period Temp Pulse Resp BP Sys/Ying Pulse Ox Last 24 Hr 97.5 F-100 F 70-98 18-80 106-140/55-68 99-99 GENERAL: awake alert in mild distress HEAD: NC/AT EYES: EOMI, Conjunctiva clear, sclera anicteric ENT: dry mucous membrane NECK: Supple, no JVD LUNGS: Bibasilar crackles HEART: RRR, NSR, normal s1, s2, 4/6 systolic murmur ABDOMEN: Soft, ND, NT, +BS 4 Q, no CVA Tenderness LOWER EXTREMITIES: +2 edema, +2DP pulse,Gangrene of toes, 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 Left TMA wound open with gangrene of lateral foot and heel. NEUROLOGICAL: No focal deficit. Normal speech. gait not observed. PSYCHIATRIC: Cooperative. Good eye contact. SKIN: Warm, dry, Laboratory Results - last 24 hr 12/06/19 12/06/19 12/06/19 07:52 07:52 07:52 WBC 17.6 H RBC 3.15 L Hgb 9.0 L Hct 28.2 L MCV 89.6 MCH 28.7 MCHC 32.0 RDW 16.2 H Plt Count 371 MPV 7.0 L Absolute Neuts (auto) 14.5 H Neutrophils % 82.7 Lymphocytes % 8.3 D Monocytes % 8.5 Eosinophils % 0.2 Basophils % 0.3 Nucleated RBC % 0 PTT (Actin FS) 31.8 Sodium 136 Potassium 3.3 L Chloride 100 Carbon Dioxide 30 Anion Gap 7 L BUN 6.7 L Creatinine 0.4 L Est GFR (CKD-EPI)AfAm 107.03 Est GFR (CKD-EPI)NonAf 92.34 Random Glucose 110 H Calcium 8.6 Total Bilirubin 0.6 AST 32 ALT 27 Alkaline Phosphatase 88 Total Protein 4.9 L Albumin 2.1 L Vancomycin Pre-Dose 12/06/19 18:45 WBC RBC Hgb Hct MCV MCH MCHC RDW Plt Count MPV Absolute Neuts (auto) Neutrophils % Lymphocytes % Monocytes % Eosinophils % Basophils % Nucleated RBC % PTT (Actin FS) Sodium Potassium Chloride Carbon Dioxide Anion Gap BUN Creatinine Est GFR (CKD-EPI)AfAm Est GFR (CKD-EPI)NonAf Random Glucose Calcium Total Bilirubin AST ALT Alkaline Phosphatase Total Protein Albumin Vancomycin Pre-Dose 5.6 L Active Medications Generic Name Dose Route Start Last Admin Trade Name Freq PRN Reason Stop Dose Admin Acetaminophen 650 mg 12/05/19 16:06 12/06/19 09:46 Tylenol - PO 650 mg Q6H PRN Administration PAIN LEVEL 1-3 Amino Acids 30 ml 12/05/19 17:30 12/06/19 17:53 Prosource No Carb Liquid Pkt PO 30 ml BID@0800,1730 COLBY Administration Apixaban 2.5 mg 12/05/19 22:00 12/06/19 21:28 Eliquis - PO 2.5 mg BID COLBY Administration Atorvastatin Calcium 10 mg 12/05/19 22:00 12/06/19 21:29 Lipitor - PO 10 mg HS COLBY Administration Diltiazem HCl 180 mg 12/06/19 10:00 12/06/19 09:48 Cardizem Cd - PO 180 mg DAILY COLBY Administration Escitalopram Oxalate 20 mg 12/06/19 10:00 12/06/19 09:45 Lexapro - PO 20 mg DAILY COLBY Administration Gabapentin 300 mg 12/05/19 22:00 12/06/19 21:29 Neurontin - PO 300 mg TID COLBY Administration Hydromorphone HCl 1 mg 12/06/19 19:26 Dilaudid Vial - IVPB Q4H PRN PAIN LEVEL 7 - 10 Vancomycin HCl 750 mg/ 250 mls @ 250 mls/hr 12/05/19 20:00 12/06/19 20:37 Dextrose IVPB 250 mls/hr Q24H COLBY Administration Protocol Piperacillin Sod/Tazobactam 50 mls @ 100 mls/hr 12/05/19 18:00 12/07/19 01:19 Sod 3.375 gm/ Dextrose IVPB 100 mls/hr Q8H-IV COLBY Administration Protocol Metoprolol Succinate 50 mg 12/05/19 22:00 12/06/19 21:28 Toprol Xl - PO 50 mg HS COLBY Administration Non-Formulary Medication 0.08 ml 12/06/19 10:00 12/06/19 09:52 Teriparatide [Forteo] SQ 0.08 ml DAILY COLBY Administration Oxycodone HCl 5 mg 12/06/19 19:26 Roxicodone - PO Q4H PRN PAIN LEVEL 6-10 Pantoprazole Sodium 40 mg 12/06/19 10:00 12/06/19 09:46 Protonix - PO 40 mg DAILY COLBY Administration Polyethylene Glycol 17 gm 12/05/19 19:45 12/06/19 09:52 Miralax (For Daily Use) - PO 17 gm DAILY COLBY Administration Prednisone 2.5 mg 12/06/19 10:00 12/06/19 09:44 Deltasone - PO 2.5 mg DAILY COLBY Administration Sodium Chloride 1 gm 12/06/19 10:00 12/06/19 09:47 Sodium Chloride Tablet - PO 1 gm DAILY COLBY Administration Valsartan 160 mg 12/06/19 10:00 12/06/19 09:45 Diovan - PO 160 mg DAILY COLBY Administration ASSESSMENT/PLAN: 89 y/o F with a PMHx of HTN, GERD, HLD, DVT on chronic AC (eliquis), severe PVD s/p LLE angioplasty, s/p Lt TMA on 11/03 presenting with b/l leg pain. Pt is in severe sharp pain worse in the RLE, associated with warmth and redness. Pt's son at bedside providing most of the history. #PAD with recent left TMA 11/03, now with dehiscence and infection of surgical wound, gangrene of both feet * had an angiogram today with disease limited to right foot , BKA offer for family and will be decided, vascualr on board * cont eliquis and lipitor * pain control with dilauded and oxycodone and kade pentin * resume diet * Angiogram reviewed #Sepsis 2/2 foot gangreen * cont abx vanc/zosyn * vanco trough * IV fluids dc due to cxr congestion * blood cx negative cont to follow * held methotrexat due to infection * had fever yesteday and blood cx re send # SOB due to volume over loaded * DC fludis * 20 lasix IV push once * sat 95 % on 2 l NC #Paroxysmal A. fibwith RVR #HTN * cont diovan * NSR for now * cont cardizim, toprol and eliquis #Normocytic Anemia, chronic , monitor H/H daily , * normal transfusion threshold below 8 * likely due to chronic disease #HLD Cont lipitor # Hypoglycemia :resolved resume diet # Hypokalemia replinished 20 pO potassium # constipation likely due to immobility and pain medication , can start on Miralax 17 mg daily # malnourished : high protein diet BMI 18.6 # H/O DVT #RA * continue 2.5 prednisone and hold methotrexate due to infection #GERD * Continue protonix #Parkinsonism * Continue with home dose Sinemet # Sever protien calorie malnutrition , evidenced by moderate subcutaneous fat loss around orbital and upper arm regions , moderate muscle loss around temporal and calvicular regions clinical indicators BMI 18.6,WT 105 LB, average intake less than nutritional needs ALB 2.8-2.1 total loss protien drop from 6.0- 4.9 risk factors wound healing advance age , chronic illness will start Magic cup prosurce BID # FEN * no standing fluids * Monitor lytes * NS controlled diabetic diet # proph : * DVT on ELiquis 2.5 BID * GI on PPI # Dispo : M/S for familyd to decide about BKA Visit type - Emergency Visit Emergency Visit: Yes ED Registration Date: 12/01/19 Care time: The patient presented to the Emergency Department on the above date and was hospitalized for further evaluation of their emergent condition. - New Patient This patient is new to me today: No - Critical Care Critical Care patient: No - Discharge Referral Referred to [facility] No ATTENDING PHYSICIAN STATEMENT I saw and evaluated the patient. I reviewed the resident's note and discussed the case with the resident. I agree with the resident's findings and plan as documented. SUBJECTIVE: OBJECTIVE: ASSESSMENT AND PLAN:
[2019-12-07] MEDS: GABAPENTIN 300 MG CAPSULE PO SCH ×3 (06:25→21:05)
[2019-12-07 08:13] LABS: BASO % 0.5 % (0-2.0); EOS % 0.6 % (0-4.5); HEMATOCRIT 24.2 % (32.4-45.2); HEMOGLOBIN 7.8 GM/dL (10.7-15.3); LYMPH % 13.1 % (8-40); MCH 28.2 pg (25.7-33.7); MEAN CELL VOLUME 88.2 fl (80-96); MEAN PLT VOLUME 7.4 fl (7.5-11.1); MONO % 8.5 % (3.8-10.2); NEUT % 77.3 % (42.8-82.8); PLATELET COUNT 320 K/MM3 (134-434); RBC 2.74 M/mm3 (3.60-5.2); RDW 16.5 % (11.6-15.6); WHITE BLOOD COUNT 15.4 K/mm3 (4.0-10.0)
[2019-12-07 08:23] LABS: HEMATOCRIT 24.3 % (32.4-45.2); HEMOGLOBIN 7.8 GM/dL (10.7-15.3); MCH 27.9 pg (25.7-33.7); MEAN CELL VOLUME 87.3 fl (80-96); MEAN PLT VOLUME 7.1 fl (7.5-11.1); PLATELET COUNT 327 K/MM3 (134-434); RBC 2.79 M/mm3 (3.60-5.2); RDW 16.8 % (11.6-15.6); WHITE BLOOD COUNT 15.2 K/mm3 (4.0-10.0)
[2019-12-07] MEDS: AMINO ACIDS/PROTEIN HYDROLYS 30 ML LIQUID.PKT PO SCH ×2 (08:51→18:17)
[2019-12-07 09:02] LABS: ALBUMIN 1.9 g/dl (3.4-5.0); BILIRUBIN,TOTAL 0.5 mg/dL (0.2-1); BLOOD UREA NITROGEN 16.2 mg/dL (7-18); CALCIUM 8.4 mg/dL (8.5-10.1); CREATININE 0.3 mg/dL (0.55-1.3); POTASSIUM 3.2 mmol/L (3.5-5.1); TOT PROT 4.5 g/dl (6.4-8.2)
[2019-12-07] MEDS ORDERED: ESCITALOPRAM OXALATE 10 MG TABLET ONE (09:48)
[2019-12-07] MEDS: POLYETHYLENE GLYCOL 3350 119 GM BTL PO SCH (09:54)
[2019-12-07] MEDS: predniSONE 5 MG TABLET (UD) PO SCH (09:54)
[2019-12-07] MEDS: APIXABAN 2.5 MG TABLET PO SCH ×2 (09:55→21:05)
[2019-12-07] MEDS: SODIUM CHLORIDE 1 GM TABLET PO SCH (09:55)
[2019-12-07] MEDS: VALSARTAN 160 MG TABLET (UD) PO SCH (09:55)
[2019-12-07] MEDS: PANTOPRAZOLE 40 MG TABLET PO SCH (09:55)
[2019-12-07] MEDS: TERIPARATIDE SQ SCH (09:55)
[2019-12-07] MEDS: ESCITALOPRAM OXALATE 20 MG TABLET PO SCH (09:55)
[2019-12-07] MEDS: ACETAMINOPHEN 325 MG TABLET (FP) PO PRN (12:50)
[2019-12-07] MEDS: oxyCODONE HCL 5 MG TABLET PO PRN ×2 (12:51→16:00)
--- NOTE | 2019-12-07 17:55 | PN ---
Progress Note (short form) - Note Progress Note: pain well controlled she is comfortable Vital Signs Period Temp Pulse Resp BP Sys/Ying Pulse Ox Last 24 Hr 97.5 F-101 F 70-100 18-18 113-141/54-68 99-99 cor-rrr lungs decreased bs at bases abd soft,nt ext-still some erythema of the right foot, left tma flap is necrotic and dry with some undermined areas developing CBC, BMP 12/07/19 06:38 12/07/19 06:38 Microbiology 12/02/19 17:00 Blood - Peripheral Venous Blood Culture - Final NO GROWTH AFTER 5 DAYS INCUBATION 12/02/19 17:00 Blood - Peripheral Venous Blood Culture - Final NO GROWTH AFTER 5 DAYS INCUBATION 12/06/19 13:40 Blood - Peripheral Venous Blood Culture - Preliminary NO GROWTH OBTAINED AFTER 24 HOURS, INCUBATION TO CONTINUE FOR 4 DAYS. 12/06/19 13:35 Blood - Peripheral Venous Blood Culture - Preliminary NO GROWTH OBTAINED AFTER 24 HOURS, INCUBATION TO CONTINUE FOR 4 DAYS. imp/reccd fever- new- cultures repeated ?legs, ?pneumonia increase vanco to 1 gram daily for cellulitis switch to cefepime/flagyl ask surgery to re-evaluate her legs in am incentive spirometer TMA infection/dehiscence- family to decide about further surgery
--- NOTE | 2019-12-07 18:17 | PN ---
Teaching Attending Note Name of Resident: Antwan Leah ATTENDING PHYSICIAN STATEMENT I saw and evaluated the patient. I reviewed the resident's note and discussed the case with the resident. I agree with the resident's findings and plan as documented. SUBJECTIVE: Patient evaluated at bedside. Appears comfortable, NAD getting opiods for pain, family at bedside, refusing invasive procedures. OBJECTIVE: PE GENERAL: drowsy, comfortable, slow breathing, AAox1 HEAD: NC/AT EYES: EOMI, Conjunctiva clear, sclera anicteric ENT: dry mucous membrane NECK: Supple, no JVD LUNGS: CTAB anteriorally HEART: RRR, NSR, normal s1, s2, 4/6 systolic murmur ABDOMEN: Soft, ND, NT, +BS 4 Q, no CVA Tenderness LOWER EXTREMITIES: +2 edema, +2DP pulse,Gangrene of toes, 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 Left TMA wound open with gangrene of lateral foot and heel. NEUROLOGICAL: No focal deficit. Normal speech. gait not observed. SKIN: Warm, dry. Vital Signs - 24 hr 12/06/19 12/06/19 12/07/19 19:48 21:00 06:00 Temperature 97.5 F L 98.9 F Pulse Rate 70 79 Respiratory 18 18 18 Rate Blood Pressure 113/68 135/54 L O2 Sat by Pulse 99 Oximetry (%) 12/07/19 12/07/19 12/07/19 09:00 09:52 14:00 Temperature 99.3 F 101 F H Pulse Rate 88 100 H Respiratory 18 18 Rate Blood Pressure 121/60 141/61 O2 Sat by Pulse 99 Oximetry (%) Microbiology 12/02/19 17:00 Blood - Peripheral Venous Blood Culture - Final NO GROWTH AFTER 5 DAYS INCUBATION 12/02/19 17:00 Blood - Peripheral Venous Blood Culture - Final NO GROWTH AFTER 5 DAYS INCUBATION 12/06/19 13:40 Blood - Peripheral Venous Blood Culture - Preliminary NO GROWTH OBTAINED AFTER 24 HOURS, INCUBATION TO CONTINUE FOR 4 DAYS. 12/06/19 13:35 Blood - Peripheral Venous Blood Culture - Preliminary NO GROWTH OBTAINED AFTER 24 HOURS, INCUBATION TO CONTINUE FOR 4 DAYS. Laboratory Results - last 24 hr 12/06/19 12/07/19 12/07/19 18:45 06:38 06:38 WBC 15.2 H RBC 2.79 L Hgb 7.8 L Hct 24.3 L MCV 87.3 MCH 27.9 MCHC 32.0 RDW 16.8 H Plt Count 327 MPV 7.1 L Absolute Neuts (auto) Neutrophils % Lymphocytes % Monocytes % Eosinophils % Basophils % Nucleated RBC % PTT (Actin FS) 30.9 Sodium Potassium Chloride Carbon Dioxide Anion Gap BUN Creatinine Est GFR (CKD-EPI)AfAm Est GFR (CKD-EPI)NonAf Random Glucose Calcium Total Bilirubin AST ALT Alkaline Phosphatase Total Protein Albumin Vancomycin Pre-Dose 5.6 L 12/07/19 12/07/19 06:38 06:38 WBC 15.4 H RBC 2.74 L Hgb 7.8 L Hct 24.2 L MCV 88.2 MCH 28.2 MCHC 32.0 RDW 16.5 H Plt Count 320 MPV 7.4 L Absolute Neuts (auto) 11.9 H Neutrophils % 77.3 Lymphocytes % 13.1 D Monocytes % 8.5 Eosinophils % 0.6 D Basophils % 0.5 Nucleated RBC % 0 PTT (Actin FS) Sodium 137 Potassium 3.2 L Chloride 101 Carbon Dioxide 29 Anion Gap 7 L BUN 16.2 Creatinine 0.3 L Est GFR (CKD-EPI)AfAm 117.65 Est GFR (CKD-EPI)NonAf 101.51 Random Glucose 85 Calcium 8.4 L Total Bilirubin 0.5 AST 22 ALT 20 Alkaline Phosphatase 77 Total Protein 4.5 L Albumin 1.9 L Vancomycin Pre-Dose Current Medications Generic Name Dose Route Start Last Admin Trade Name Freq PRN Reason Stop Dose Admin Acetaminophen 650 mg 12/05/19 16:06 12/07/19 12:50 Tylenol - PO 650 mg Q6H PRN Administration PAIN LEVEL 1-3 Amino Acids 30 ml 12/05/19 17:30 12/07/19 08:51 Prosource No Carb Liquid Pkt PO 30 ml BID@0800,1730 COLBY Administration Apixaban 2.5 mg 12/05/19 22:00 12/07/19 09:55 Eliquis - PO 2.5 mg BID COLBY Administration Atorvastatin Calcium 10 mg 12/05/19 22:00 12/06/19 21:29 Lipitor - PO 10 mg HS COLBY Administration Diltiazem HCl 180 mg 12/06/19 10:00 12/07/19 09:54 Cardizem Cd - PO 180 mg DAILY COLBY Administration Escitalopram Oxalate 20 mg 12/06/19 10:00 12/07/19 09:55 Lexapro - PO 20 mg DAILY COLBY Administration Gabapentin 300 mg 12/05/19 22:00 12/07/19 14:23 Neurontin - PO 300 mg TID COLBY Administration Hydromorphone HCl 1 mg 12/06/19 19:26 Dilaudid Vial - IVPB Q4H PRN PAIN LEVEL 7 - 10 Vancomycin HCl 1,000 mg in 250 mls @ 166.667 mls/hr 12/07/19 20:00 Vancomycin (Pre-Docked) IVPB Q24H COLBY Protocol Cefepime HCl 1 gm/ Dextrose 100 mls @ 200 mls/hr 12/07/19 22:00 IVPB BID COLBY Protocol Metronidazole 500 mg in 100 mls @ 100 mls/hr 12/07/19 18:00 Flagyl 500mg Premixed Ivpb - IVPB Q8H-IV COLBY Metoprolol Succinate 50 mg 12/05/19 22:00 12/06/19 21:28 Toprol Xl - PO 50 mg HS COLBY Administration Non-Formulary Medication 0.08 ml 12/06/19 10:00 12/07/19 09:55 Teriparatide [Forteo] SQ 0.08 ml DAILY COLBY Administration Oxycodone HCl 5 mg 12/06/19 19:26 12/07/19 16:00 Roxicodone - PO 5 mg Q4H PRN Administration PAIN LEVEL 6-10 Oxycodone HCl 10 mg 12/07/19 22:00 Oxycontin - PO BID COLBY Pantoprazole Sodium 40 mg 12/06/19 10:00 12/07/19 09:55 Protonix - PO 40 mg DAILY COLBY Administration Polyethylene Glycol 17 gm 12/05/19 19:45 12/07/19 09:54 Miralax (For Daily Use) - PO 17 gm DAILY COLBY Administration Prednisone 2.5 mg 12/06/19 10:00 12/07/19 09:54 Deltasone - PO 2.5 mg DAILY COLBY Administration Sodium Chloride 1 gm 12/06/19 10:00 12/07/19 09:55 Sodium Chloride Tablet - PO 1 gm DAILY COLBY Administration Valsartan 160 mg 12/06/19 10:00 12/07/19 09:55 Diovan - PO 160 mg DAILY COLBY Administration ASSESSMENT/PLAN: 89 F h/o HTN, GERD, HLD, DVT on chronic AC (eliquis), severe PVD s/p LLE angioplasty, s/p Lt TMA on 11/03 presenting with b/l leg pain. Pt is in severe sharp pain worse in the RLE, associated with warmth and redness. R foot gangrene and L foot severe PAD requiring L BKA. Family wishing not to undergo any invasive procedures. Severe PAD with recent left TMA 11/03, now with dehiscence and infection of surgical wound, gangrene of both feet Angiogram done, revealing disease in R foot, family offered L BKA, family wishes not to undergo invasive measures cont eliquis and lipitor pain control with dilauded and oxycodone and gabapentin resume diet Angiogram reviewed Vascular consult: Dr Goodwin Sepsis 2/ foot gangreen cont abx vanc/zosyn vanco trough IV fluids dc due to cxr congestion blood cx negative cont to follow held methotrexat due to infection had fever yesteday and blood cx re send SOB due to volume over loaded DC fludis 20 lasix IV push once sat 95 % on 2 l NC Paroxysmal A. fibwith RVR rate controlled, on AC HTN cont diovan NSR for now cont cardizim, toprol and eliquis Normocytic Anemia, chronic , monitor H/H daily , normal transfusion threshold below 8 likely due to chronic disease HLD Cont lipitor Hypoglycemia :resolved resume diet Hypokalemia replinished 20 pO potassium Malnourished : high protein diet BMI 18.6 RA continue 2.5 prednisone and hold methotrexate due to infection GERD Continue protonix Parkinsonism Continue with home dose Sinemet DVT ppx: DVT on ELiquis 2.5 BID GI on PPI Med Surg DNR, family requesting no invasive measures at this time
[2019-12-07] MEDS ORDERED: DEXTROSE 5%-WATER 100 ML IVPB ONE (20:33)
[2019-12-07] MEDS ORDERED: CEFEPIME HCL 1 GM VIAL (RESTRICTED TO ID) ONE (20:33)
[2019-12-07] MEDS: VANCOMYCIN 1 GRAM (PRE-DOCKED) 1,000 MG/250 ML BAG IVPB SCH (20:38)
[2019-12-07] MEDS: ATORVASTATIN CA 10 MG TABLET (FP) PO SCH (21:05)
[2019-12-07] MEDS: CEFEPIME 1 GM in DEXTROSE 5%-WATER 100 ML IVPB SCH (21:07)
[2019-12-07] MEDS: oxyCODONE HCL 10 MG SUSTAINED ACTING TABLET PO SCH (21:38)
[2019-12-08] MEDS: GABAPENTIN 300 MG CAPSULE PO SCH ×3 (06:13→21:16)
--- NOTE | 2019-12-08 06:37 | PN ---
Physical Exam: SUBJECTIVE: Patient seen and examined at bed side , had fever over night , POD#3 , seems comfortable in bed pain controlled breathing is fine cont incentive spirometry family denies any surgery for now signs DNR/DNI pending placement paliative care discussuin regarding comfrot care still pending OBJECTIVE: Vital Signs Period Temp Pulse Resp BP Sys/Ying Pulse Ox Last 24 Hr 99 F-101 F 80-100 18-20 121-141/59-80 98-99 GENERAL: awake alert in mild distress HEAD: NC/AT EYES: EOMI, Conjunctiva clear, sclera anicteric ENT: dry mucous membrane NECK: Supple, no JVD LUNGS: Bibasilar crackles HEART: RRR, NSR, normal s1, s2, 4/6 systolic murmur ABDOMEN: Soft, ND, NT, +BS 4 Q, no CVA Tenderness LOWER EXTREMITIES: +2 edema, +2DP pulse,Gangrene of toes, 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 Left TMA wound open with gangrene of lateral foot and heel. NEUROLOGICAL: No focal deficit. Normal speech. gait not observed. PSYCHIATRIC: Cooperative. Good eye contact. SKIN: Warm, dry, Laboratory Results - last 24 hr 12/07/19 12/07/19 12/07/19 06:38 06:38 06:38 WBC 15.2 H 15.4 H RBC 2.79 L 2.74 L Hgb 7.8 L 7.8 L Hct 24.3 L 24.2 L MCV 87.3 88.2 MCH 27.9 28.2 MCHC 32.0 32.0 RDW 16.8 H 16.5 H Plt Count 327 320 MPV 7.1 L 7.4 L Absolute Neuts (auto) 11.9 H Neutrophils % 77.3 Lymphocytes % 13.1 D Monocytes % 8.5 Eosinophils % 0.6 D Basophils % 0.5 Nucleated RBC % 0 PTT (Actin FS) 30.9 Sodium Potassium Chloride Carbon Dioxide Anion Gap BUN Creatinine Est GFR (CKD-EPI)AfAm Est GFR (CKD-EPI)NonAf Random Glucose Calcium Total Bilirubin AST ALT Alkaline Phosphatase Total Protein Albumin 12/07/19 06:38 WBC RBC Hgb Hct MCV MCH MCHC RDW Plt Count MPV Absolute Neuts (auto) Neutrophils % Lymphocytes % Monocytes % Eosinophils % Basophils % Nucleated RBC % PTT (Actin FS) Sodium 137 Potassium 3.2 L Chloride 101 Carbon Dioxide 29 Anion Gap 7 L BUN 16.2 Creatinine 0.3 L Est GFR (CKD-EPI)AfAm 117.65 Est GFR (CKD-EPI)NonAf 101.51 Random Glucose 85 Calcium 8.4 L Total Bilirubin 0.5 AST 22 ALT 20 Alkaline Phosphatase 77 Total Protein 4.5 L Albumin 1.9 L Active Medications Generic Name Dose Route Start Last Admin Trade Name Freq PRN Reason Stop Dose Admin Acetaminophen 650 mg 12/05/19 16:06 12/07/19 12:50 Tylenol - PO 650 mg Q6H PRN Administration PAIN LEVEL 1-3 Amino Acids 30 ml 12/05/19 17:30 12/07/19 18:17 Prosource No Carb Liquid Pkt PO 30 ml BID@0800,1730 COLBY Administration Apixaban 2.5 mg 12/05/19 22:00 12/07/19 21:05 Eliquis - PO 2.5 mg BID COLBY Administration Atorvastatin Calcium 10 mg 12/05/19 22:00 12/07/19 21:05 Lipitor - PO 10 mg HS COLBY Administration Diltiazem HCl 180 mg 12/06/19 10:00 12/07/19 09:54 Cardizem Cd - PO 180 mg DAILY COLBY Administration Escitalopram Oxalate 20 mg 12/06/19 10:00 12/07/19 09:55 Lexapro - PO 20 mg DAILY COLBY Administration Gabapentin 300 mg 12/05/19 22:00 12/08/19 06:13 Neurontin - PO 300 mg TID COLBY Administration Hydromorphone HCl 1 mg 12/06/19 19:26 Dilaudid Vial - IVPB Q4H PRN PAIN LEVEL 7 - 10 Vancomycin HCl 1,000 mg in 250 mls @ 166.667 mls/hr 12/07/19 20:00 12/07/19 20:38 Vancomycin (Pre-Docked) IVPB 166.667 mls/hr Q24H COLBY Administration Protocol Cefepime HCl 1 gm/ Dextrose 100 mls @ 200 mls/hr 12/07/19 22:00 12/07/19 21: 07 IVPB 200 mls/hr BID COLBY Administration Protocol Metronidazole 500 mg in 100 mls @ 100 mls/hr 12/07/19 18:00 12/08/19 01:27 Flagyl 500mg Premixed Ivpb - IVPB 100 mls/hr Q8H-IV COLBY Administration Metoprolol Succinate 50 mg 12/05/19 22:00 12/07/19 21:05 Toprol Xl - PO 50 mg HS COLBY Administration Non-Formulary Medication 0.08 ml 12/06/19 10:00 12/07/19 09:55 Teriparatide [Forteo] SQ 0.08 ml DAILY COLBY Administration Oxycodone HCl 5 mg 12/06/19 19:26 12/07/19 16:00 Roxicodone - PO 5 mg Q4H PRN Administration PAIN LEVEL 6-10 Oxycodone HCl 10 mg 12/07/19 22:00 12/07/19 21:38 Oxycontin - PO 10 mg BID COLBY Administration Pantoprazole Sodium 40 mg 12/06/19 10:00 12/07/19 09:55 Protonix - PO 40 mg DAILY COLBY Administration Polyethylene Glycol 17 gm 12/05/19 19:45 12/07/19 09:54 Miralax (For Daily Use) - PO 17 gm DAILY COLBY Administration Prednisone 2.5 mg 12/06/19 10:00 12/07/19 09:54 Deltasone - PO 2.5 mg DAILY COLBY Administration Sodium Chloride 1 gm 12/06/19 10:00 12/07/19 09:55 Sodium Chloride Tablet - PO 1 gm DAILY COLBY Administration Valsartan 160 mg 12/06/19 10:00 12/07/19 09:55 Diovan - PO 160 mg DAILY COLBY Administration ASSESSMENT/PLAN: 89 y/o F with a PMHx of HTN, GERD, HLD, DVT on chronic AC (eliquis), severe PVD s/p LLE angioplasty, s/p Lt TMA on 11/03 presenting with b/l leg pain. Pt is in severe sharp pain worse in the RLE, associated with warmth and redness. Pt's son at bedside providing most of the history. #PAD with recent left TMA 11/03, now with dehiscence and infection of surgical wound, gangrene of both feet * had an angiogram today with disease limited to right foot , BKA offer for family and will be decided, vascualr on board * cont eliquis and lipitor * pain control with dilauded and oxycodone and kade pentin * resume diet * Angiogram reviewed * abx per ID increase vanco to 1 gm daily and start cefipime /flagyl #Sepsis 2/2 foot gangreen /cellulitis * cont abx vanc start cefepim and flagyl * vanco trough , increase vanco to 1gm daily * IV fluids dc due to cxr congestion * blood cx negative cont to follow * held methotrexat due to infection * had fever yesteday and blood cx re send # SOB due to volume over loaded r.o PNA * DC fludis * 20 lasix IV push once * sat 95 % on 2 l NC * cont abx #Paroxysmal A. fibwith RVR #HTN * cont diovan * NSR for now * cont cardizim, toprol and eliquis #Normocytic Anemia, chronic , monitor H/H daily , * normal transfusion threshold below 8 * likely due to chronic disease #HLD Cont lipitor # Hypoglycemia :resolved resume diet # Hypokalemia replinished 20 pO potassium # constipation likely due to immobility and pain medication , can start on Miralax 17 mg daily # malnourished : high protein diet BMI 18.6 # H/O DVT #RA * continue 2.5 prednisone and hold methotrexate due to infection #GERD * Continue protonix #Parkinsonism * Continue with home dose Sinemet # Sever protien calorie malnutrition , evidenced by moderate subcutaneous fat loss around orbital and upper arm regions , moderate muscle loss around temporal and calvicular regions clinical indicators BMI 18.6,WT 105 LB, average intake less than nutritional needs ALB 2.8-2.1 total loss protien drop from 6.0- 4.9 risk factors wound healing advance age , chronic illness will start Magic cup prosurce BID # FEN * no standing fluids * Monitor lytes * NS controlled diabetic diet # proph : * DVT on ELiquis 2.5 BID * GI on PPI # Dispo : M/S familyd denies BKA Visit type - Emergency Visit Emergency Visit: Yes ED Registration Date: 12/01/19 Care time: The patient presented to the Emergency Department on the above date and was hospitalized for further evaluation of their emergent condition. - New Patient This patient is new to me today: No - Critical Care Critical Care patient: No - Discharge Referral [facility]erred to [facility] Med P.C.: No ATTENDING PHYSICIAN STATEMENT I saw and evaluated the patient. I reviewed the resident's note and discussed the case with the resident. I agree with the resident's findings and plan as documented. SUBJECTIVE: OBJECTIVE: ASSESSMENT AND PLAN:
[2019-12-08 08:37] LABS: HEMATOCRIT 25.4 % (32.4-45.2); MCH 27.7 pg (25.7-33.7); MCHC 31.5 g/dl (32.0-36.0); MEAN CELL VOLUME 87.8 fl (80-96); MEAN PLT VOLUME 7.3 fl (7.5-11.1); PLATELET COUNT 336 K/MM3 (134-434); RDW 17.1 % (11.6-15.6); WHITE BLOOD COUNT 15.5 K/mm3 (4.0-10.0)
[2019-12-08 08:43] LABS: BASO % 0.3 % (0-2.0); EOS % 0.9 % (0-4.5); HEMATOCRIT 25.3 % (32.4-45.2); HEMOGLOBIN 8.1 GM/dL (10.7-15.3); LYMPH % 16.1 % (8-40); MCHC 31.8 g/dl (32.0-36.0); MEAN CELL VOLUME 87.8 fl (80-96); MEAN PLT VOLUME 7.5 fl (7.5-11.1); MONO % 7.4 % (3.8-10.2); NEUT % 75.3 % (42.8-82.8); PLATELET COUNT 344 K/MM3 (134-434); RBC 2.88 M/mm3 (3.60-5.2); RDW 16.4 % (11.6-15.6); WHITE BLOOD COUNT 15.7 K/mm3 (4.0-10.0)
[2019-12-08] MEDS ORDERED: ESCITALOPRAM OXALATE 10 MG TABLET ONE (09:05)
[2019-12-08] MEDS ORDERED: DEXTROSE 5%-WATER 100 ML IVPB ONE ×2 (09:06→21:06)
[2019-12-08] MEDS ORDERED: CEFEPIME HCL 1 GM VIAL (RESTRICTED TO ID) ONE ×2 (09:06→21:06)
[2019-12-08 09:11] LABS: BLOOD UREA NITROGEN 18.4 mg/dL (7-18); CALCIUM 8.6 mg/dL (8.5-10.1); CREATININE 0.3 mg/dL (0.55-1.3); POTASSIUM 3.4 mmol/L (3.5-5.1)
[2019-12-08] MEDS: AMINO ACIDS/PROTEIN HYDROLYS 30 ML LIQUID.PKT PO SCH ×2 (09:38→17:51)
[2019-12-08] MEDS: PANTOPRAZOLE 40 MG TABLET PO SCH (09:41)
[2019-12-08] MEDS: predniSONE 5 MG TABLET (UD) PO SCH (09:41)
[2019-12-08] MEDS: APIXABAN 2.5 MG TABLET PO SCH ×2 (09:41→21:16)
[2019-12-08] MEDS: oxyCODONE HCL 10 MG SUSTAINED ACTING TABLET PO SCH ×2 (09:41→21:16)
[2019-12-08] MEDS: VALSARTAN 160 MG TABLET (UD) PO SCH (09:42)
[2019-12-08] MEDS: ESCITALOPRAM OXALATE 20 MG TABLET PO SCH (09:43)
[2019-12-08] MEDS: CEFEPIME 1 GM in DEXTROSE 5%-WATER 100 ML IVPB SCH ×2 (09:43→21:18)
[2019-12-08] MEDS: POLYETHYLENE GLYCOL 3350 119 GM BTL PO SCH (09:48)
[2019-12-08] MEDS: SODIUM CHLORIDE 1 GM TABLET PO SCH (09:56)
[2019-12-08] MEDS ORDERED: PT OWN MED DRAWER 7, Y5N ONE (09:58)
[2019-12-08] MEDS: TERIPARATIDE SQ SCH (10:00)
[2019-12-08] MEDS: oxyCODONE HCL 5 MG TABLET PO PRN (10:41)
--- NOTE | 2019-12-08 16:54 | PN ---
Teaching Attending Note Name of Resident: Antwan Lynn ATTENDING PHYSICIAN STATEMENT I saw and evaluated the patient. I reviewed the resident's note and discussed the case with the resident. I agree with the resident's findings and plan as documented. SUBJECTIVE: Patient evaluated at bedside, alert, answering questions, Refusing invasive procedures/surgery. Other VSS, low grade fever overnight. OBJECTIVE: PE GENERAL: comfortable, alert, answering questions HEAD: NC/AT EYES: EOMI, Conjunctiva clear, sclera anicteric ENT: dry mucous membrane NECK: Supple, no JVD LUNGS: CTAB anteriorally HEART: RRR, NSR, normal s1, s2, 4/6 systolic murmur ABDOMEN: Soft, ND, NT, +BS 4 Q, no CVA Tenderness LOWER EXTREMITIES: +2 edema, +2DP pulse,Gangrene of toes, 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 Left TMA wound open with gangrene of lateral foot and heel. NEUROLOGICAL: No focal deficit. Normal speech. gait not observed. SKIN: Warm, dry. Vital Signs - 24 hr 12/07/19 12/07/19 12/07/19 21:00 21:15 21:59 Temperature 100.6 F H Pulse Rate 82 Respiratory 20 Rate Blood Pressure 134/80 O2 Sat by Pulse 98 Oximetry (%) 12/08/19 12/08/19 12/08/19 02:55 06:00 09:00 Temperature 100.3 F H 99.2 F Pulse Rate 81 Respiratory 18 Rate Blood Pressure 139/59 L O2 Sat by Pulse 98 Oximetry (%) 12/08/19 14:00 Temperature 98.2 F Pulse Rate 82 Respiratory 18 Rate Blood Pressure 131/65 O2 Sat by Pulse Oximetry (%) Microbiology 12/06/19 13:40 Blood - Peripheral Venous Blood Culture - Preliminary NO GROWTH OBTAINED AFTER 48 HOURS, INCUBATION TO CONTINUE FOR 3 DAYS. 12/06/19 13:35 Blood - Peripheral Venous Blood Culture - Preliminary NO GROWTH OBTAINED AFTER 48 HOURS, INCUBATION TO CONTINUE FOR 3 DAYS. 12/06/19 15:00 Urine - Urine Clean Catch Urine Culture - Final Yeast Like Organism 12/02/19 17:00 Blood - Peripheral Venous Blood Culture - Final NO GROWTH AFTER 5 DAYS INCUBATION 12/02/19 17:00 Blood - Peripheral Venous Blood Culture - Final NO GROWTH AFTER 5 DAYS INCUBATION Laboratory Results - last 24 hr 12/08/19 12/08/1920 06:00 07:35 07:35 WBC 15.5 H RBC 2.90 L Hgb 8.0 L Hct 25.4 L MCV 87.8 MCH 27.7 MCHC 31.5 L RDW 17.1 H Plt Count 336 MPV 7.3 L Absolute Neuts (auto) Neutrophils % Lymphocytes % Monocytes % Eosinophils % Basophils % Nucleated RBC % PTT (Actin FS) 31.3 Sodium 137 Potassium 3.4 L Chloride 100 Carbon Dioxide 30 Anion Gap 7 L BUN 18.4 H Creatinine 0.3 L Est GFR (CKD-EPI)AfAm 117.65 Est GFR (CKD-EPI)NonAf 101.51 Random Glucose 83 Calcium 8.6 12/08/19 07:35 WBC 15.7 H RBC 2.88 L Hgb 8.1 L Hct 25.3 L MCV 87.8 MCH 28.0 MCHC 31.8 L RDW 16.4 H Plt Count 344 MPV 7.5 Absolute Neuts (auto) 11.8 H Neutrophils % 75.3 Lymphocytes % 16.1 D Monocytes % 7.4 Eosinophils % 0.9 Basophils % 0.3 Nucleated RBC % 0 PTT (Actin FS) Sodium Potassium Chloride Carbon Dioxide Anion Gap BUN Creatinine Est GFR (CKD-EPI)AfAm Est GFR (CKD-EPI)NonAf Random Glucose Calcium Current Medications Generic Name Dose Route Start Last Admin Trade Name Freq PRN Reason Stop Dose Admin Acetaminophen 650 mg 12/05/19 16:06 12/07/19 12:50 Tylenol - PO 650 mg Q6H PRN Administration PAIN LEVEL 1-3 Amino Acids 30 ml 12/05/19 17:30 12/08/19 09:38 Prosource No Carb Liquid Pkt PO 30 ml BID@0800,1730 COLBY Administration Apixaban 2.5 mg 12/05/19 22:00 12/08/19 09:41 Eliquis - PO 2.5 mg BID COLBY Administration Atorvastatin Calcium 10 mg 12/05/19 22:00 12/07/19 21:05 Lipitor - PO 10 mg HS COLBY Administration Diltiazem HCl 180 mg 12/06/19 10:00 12/08/19 09:38 Cardizem Cd - PO 180 mg DAILY COLBY Administration Escitalopram Oxalate 20 mg 12/06/19 10:00 12/08/19 09:43 Lexapro - PO 20 mg DAILY COLBY Administration Gabapentin 300 mg 12/05/19 22:00 12/08/19 13:59 Neurontin - PO 300 mg TID COLBY Administration Hydromorphone HCl 1 mg 12/06/19 19:26 Dilaudid Vial - IVPB Q4H PRN PAIN LEVEL 7 - 10 Vancomycin HCl 1,000 mg in 250 mls @ 166.667 mls/hr 12/07/19 20:00 12/07/19 20:38 Vancomycin (Pre-Docked) IVPB 166.667 mls/hr Q24H COLBY Administration Protocol Cefepime HCl 1 gm/ Dextrose 100 mls @ 200 mls/hr 12/07/19 22:00 12/08/19 09: 43 IVPB 200 mls/hr BID COLBY Administration Protocol Metronidazole 500 mg in 100 mls @ 100 mls/hr 12/07/19 18:00 12/08/19 09:43 Flagyl 500mg Premixed Ivpb - IVPB 100 mls/hr Q8H-IV COLBY Administration Metoprolol Succinate 50 mg 12/05/19 22:00 12/07/19 21:05 Toprol Xl - PO 50 mg HS COLBY Administration Non-Formulary Medication 0.08 ml 12/06/19 10:00 12/08/19 10:00 Teriparatide [Forteo] SQ 0.08 ml DAILY COLBY Administration Oxycodone HCl 5 mg 12/06/19 19:26 12/08/19 10:41 Roxicodone - PO 5 mg Q4H PRN Administration PAIN LEVEL 6-10 Oxycodone HCl 10 mg 12/07/19 22:00 12/08/19 09:41 Oxycontin - PO 10 mg BID COLBY Administration Pantoprazole Sodium 40 mg 12/06/19 10:00 12/08/19 09:41 Protonix - PO 40 mg DAILY COLBY Administration Polyethylene Glycol 17 gm 12/05/19 19:45 12/08/19 09:48 Miralax (For Daily Use) - PO Not Given DAILY COLBY Prednisone 2.5 mg 12/06/19 10:00 12/08/19 09:41 Deltasone - PO 2.5 mg DAILY COLBY Administration Sodium Chloride 1 gm 12/06/19 10:00 12/08/19 09:56 Sodium Chloride Tablet - PO 1 gm DAILY COLBY Administration Valsartan 160 mg 12/06/19 10:00 12/08/19 09:42 Diovan - PO 160 mg DAILY COLBY Administration ASSESSMENT/PLAN: 89 F h/o HTN, GERD, HLD, DVT on chronic AC (eliquis), severe PVD s/p LLE angioplasty, s/p Lt TMA on 11/03 presenting with b/l leg pain. Pt is in severe sharp pain worse in the RLE, associated with warmth and redness. R foot gangrene and L foot severe PAD requiring L BKA. Family wishing not to undergo any invasive procedures. Severe PAD with recent left TMA 11/03, now with dehiscence and infection of surgical wound, gangrene of both feet Angiogram done, revealing disease in R foot, family offered L BKA, family and patient expressed wishes not to undergo invasive measures/surgery cont eliquis and lipitor pain control with dilauded and oxycodone and gabapentin resume diet Angiogram reviewed Vascular consult: Dr Goodwin Sepsis 2/ foot gangreen cont abx vanc/zosyn follow with Vanc trough IV fluids dc due to cxr congestion blood cx negative cont to follow MTX held due to active infection spiking fevers likely due to infected gangrenous foot SOB improved after diuresis avoid fluid overload Lasix PRN Paroxysmal A. fibwith RVR rate controlled, on AC HTN cont diovan NSR for now cont cardizim, toprol and eliquis Normocytic Anemia, chronic , monitor H/H daily , normal transfusion threshold below 8 likely due to chronic disease HLD Cont lipitor Hypoglycemia :resolved resume diet Hypokalemia replinished 20 pO potassium Malnourished : high protein diet BMI 18.6 RA continue 2.5 prednisone and hold methotrexate due to infection GERD Continue protonix Parkinsonism Continue with home dose Sinemet DVT ppx: DVT on ELiquis 2.5 BID GI on PPI Med Surg DNR/DNI, family and patient do not want any invasive procedures
--- NOTE | 2019-12-08 18:01 | PN ---
Progress Note (short form) - Note Progress Note: Vascular Surgery Pt seen and examined. Feels better. spoke to son at length. Pt does not want surgery Just conservative care [place] vs home health aid. Moose Goodwin DO
--- NOTE | 2019-12-08 18:26 | PN ---
Progress Note (short form) - Note Progress Note: pain well controlled she is comfortable no sob Vital Signs Period Temp Pulse Resp BP Sys/Ying Pulse Ox Last 24 Hr 97.9 F-100.6 F 74-82 18-20 125-139/59-80 98-98 cor-rrr lungs decreased bs at bases abd soft, nt ext -didnot remove dressing but right leg less red CBC, BMP 12/08/19 07:35 12/08/19 06:00 Microbiology 12/06/19 13:40 Blood - Peripheral Venous Blood Culture - Preliminary NO GROWTH OBTAINED AFTER 48 HOURS, INCUBATION TO CONTINUE FOR 3 DAYS. 12/06/19 13:35 Blood - Peripheral Venous Blood Culture - Preliminary NO GROWTH OBTAINED AFTER 48 HOURS, INCUBATION TO CONTINUE FOR 3 DAYS. 12/06/19 15:00 Urine - Urine Clean Catch Urine Culture - Final Yeast Like Organism 12/02/19 17:00 Blood - Peripheral Venous Blood Culture - Final NO GROWTH AFTER 5 DAYS INCUBATION 12/02/19 17:00 Blood - Peripheral Venous Blood Culture - Final NO GROWTH AFTER 5 DAYS INCUBATION imp/reccd ffevers resolving erythema improved suspect due to gangrene continue vanco/cefepime/flagyl f/u vanco trough incentive spirometer TMA infection/dehiscence- [facility]
[2019-12-08] MEDS: VANCOMYCIN 1 GRAM (PRE-DOCKED) 1,000 MG/250 ML BAG IVPB SCH (20:06)
[2019-12-08] MEDS: ATORVASTATIN CA 10 MG TABLET (FP) PO SCH (21:18)
[2019-12-09] MEDS: GABAPENTIN 300 MG CAPSULE PO SCH ×3 (05:43→22:36)
[2019-12-09] MEDS: AMINO ACIDS/PROTEIN HYDROLYS 30 ML LIQUID.PKT PO SCH ×2 (08:07→18:09)
[2019-12-09] MEDS ORDERED: ESCITALOPRAM OXALATE 10 MG TABLET ONE (08:57)
[2019-12-09] MEDS ORDERED: DEXTROSE 5%-WATER 100 ML IVPB ONE ×2 (08:58→21:51)
[2019-12-09] MEDS ORDERED: CEFEPIME HCL 1 GM VIAL (RESTRICTED TO ID) ONE ×2 (08:58→21:51)
[2019-12-09] MEDS: oxyCODONE HCL 10 MG SUSTAINED ACTING TABLET PO SCH ×2 (09:01→22:36)
[2019-12-09] MEDS: APIXABAN 2.5 MG TABLET PO SCH ×2 (09:01→22:36)
[2019-12-09] MEDS: PANTOPRAZOLE 40 MG TABLET PO SCH (09:02)
[2019-12-09] MEDS: predniSONE 5 MG TABLET (UD) PO SCH (09:02)
[2019-12-09] MEDS: ESCITALOPRAM OXALATE 20 MG TABLET PO SCH (09:03)
[2019-12-09] MEDS: VALSARTAN 160 MG TABLET (UD) PO SCH (09:03)
[2019-12-09] MEDS: SODIUM CHLORIDE 1 GM TABLET PO SCH (09:04)
[2019-12-09 09:06] LABS: BASO % 0.6 % (0-2.0); HEMATOCRIT 25.6 % (32.4-45.2); HEMOGLOBIN 8.3 GM/dL (10.7-15.3); LYMPH % 16.7 % (8-40); MCH 28.4 pg (25.7-33.7); MCHC 32.3 g/dl (32.0-36.0); MEAN PLT VOLUME 7.7 fl (7.5-11.1); MONO % 9.1 % (3.8-10.2); NEUT % 72.6 % (42.8-82.8); PLATELET COUNT 335 K/MM3 (134-434); RDW 16.7 % (11.6-15.6); WHITE BLOOD COUNT 13.4 K/mm3 (4.0-10.0)
[2019-12-09] MEDS: POLYETHYLENE GLYCOL 3350 119 GM BTL PO SCH (09:06)
[2019-12-09] MEDS: TERIPARATIDE SQ SCH (09:17)
[2019-12-09 09:33] LABS: ALBUMIN 1.9 g/dl (3.4-5.0); BILIRUBIN,TOTAL 0.5 mg/dL (0.2-1); BLOOD UREA NITROGEN 21.2 mg/dL (7-18); CALCIUM 8.5 mg/dL (8.5-10.1); CREATININE 0.3 mg/dL (0.55-1.3); POTASSIUM 3.5 mmol/L (3.5-5.1); TOT PROT 4.5 g/dl (6.4-8.2)
--- NOTE | 2019-12-09 10:05 | PN ---
Physical Exam: SUBJECTIVE: Patient seen and examined. She says she doesn't feel well but cannot give any specific complaints other than that she has pain in her feet. She thinks she is taking too many medications. OBJECTIVE: Vital Signs Period Temp Pulse Resp BP Sys/Ying Pulse Ox Last 24 Hr 97.9 F-98.2 F 74-82 18-18 125-131/62-65 98 GENERAL: The patient is awake, alert, and in no acute distress. LUNGS: Breath sounds equal, clear to auscultation bilaterally, no wheezes, no crackles, no accessory muscle use. HEART: Regular rate and rhythm, S1, S2, (+) 3/6 SM, no rub or gallop. ABDOMEN: Soft, nontender, nondistended, normoactive bowel sounds, no guarding, no rebound, no hepatosplenomegaly, no masses. EXTREMITIES: Both feet wrapped. Laboratory Results - last 24 hr 12/09/19 12/09/19 07:50 07:50 WBC 13.4 H RBC 2.90 L Hgb 8.3 L Hct 25.6 L MCV 88.0 MCH 28.4 MCHC 32.3 RDW 16.7 H Plt Count 335 MPV 7.7 Absolute Neuts (auto) 9.8 H Neutrophils % 72.6 Lymphocytes % 16.7 Monocytes % 9.1 Eosinophils % 1.0 Basophils % 0.6 Nucleated RBC % 0 Sodium 136 Potassium 3.5 Chloride 100 Carbon Dioxide 31 Anion Gap 5 L BUN 21.2 H Creatinine 0.3 L Est GFR (CKD-EPI)AfAm 117.65 Est GFR (CKD-EPI)NonAf 101.51 Random Glucose 85 Calcium 8.5 Total Bilirubin 0.5 AST 16 ALT 16 Alkaline Phosphatase 84 Total Protein 4.5 L Albumin 1.9 L Active Medications Generic Name Dose Route Start Last Admin Trade Name Freq PRN Reason Stop Dose Admin Acetaminophen 650 mg 12/05/19 16:06 12/07/19 12:50 Tylenol - PO 650 mg Q6H PRN Administration PAIN LEVEL 1-3 Amino Acids 30 ml 12/05/19 17:30 12/09/19 08:07 Prosource No Carb Liquid Pkt PO 30 ml BID@0800,1730 COLBY Administration Apixaban 2.5 mg 12/05/19 22:00 12/09/19 09:01 Eliquis - PO 2.5 mg BID COLBY Administration Atorvastatin Calcium 10 mg 12/05/19 22:00 12/08/19 21:18 Lipitor - PO 10 mg HS COLBY Administration Diltiazem HCl 180 mg 12/06/19 10:00 12/09/19 09:01 Cardizem Cd - PO 180 mg DAILY COLBY Administration Escitalopram Oxalate 20 mg 12/06/19 10:00 12/09/19 09:03 Lexapro - PO 20 mg DAILY COLBY Administration Gabapentin 300 mg 12/05/19 22:00 12/09/19 05:43 Neurontin - PO 300 mg TID COLBY Administration Hydromorphone HCl 1 mg 12/06/19 19:26 12/09/19 02:30 Dilaudid Vial - IVPB 1 mg Q4H PRN Administration PAIN LEVEL 7 - 10 Vancomycin HCl 1,000 mg in 250 mls @ 166.667 mls/hr 12/07/19 20:00 12/08/19 20:06 Vancomycin (Pre-Docked) IVPB 166.667 mls/hr Q24H COLBY Administration Protocol Cefepime HCl 1 gm/ Dextrose 100 mls @ 200 mls/hr 12/07/19 22:00 12/08/19 21: 18 IVPB 200 mls/hr BID COLBY Administration Protocol Metronidazole 500 mg in 100 mls @ 100 mls/hr 12/07/19 18:00 12/09/19 09:03 Flagyl 500mg Premixed Ivpb - IVPB 100 mls/hr Q8H-IV COLBY Administration Metoprolol Succinate 50 mg 12/05/19 22:00 12/08/19 21:16 Toprol Xl - PO 50 mg HS COLBY Administration Non-Formulary Medication 0.08 ml 12/06/19 10:00 12/09/19 09:17 Teriparatide [Forteo] SQ 0.08 ml DAILY COLBY Administration Oxycodone HCl 5 mg 12/06/19 19:26 12/08/19 10:41 Roxicodone - PO 5 mg Q4H PRN Administration PAIN LEVEL 6-10 Oxycodone HCl 10 mg 12/07/19 22:00 12/09/19 09:01 Oxycontin - PO 10 mg BID COLBY Administration Pantoprazole Sodium 40 mg 12/06/19 10:00 12/09/19 09:02 Protonix - PO 40 mg DAILY COLBY Administration Polyethylene Glycol 17 gm 12/05/19 19:45 12/09/19 09:06 Miralax (For Daily Use) - PO Not Given DAILY COLBY Prednisone 2.5 mg 12/06/19 10:00 12/09/19 09:02 Deltasone - PO 2.5 mg DAILY COLBY Administration Sodium Chloride 1 gm 12/06/19 10:00 12/09/19 09:04 Sodium Chloride Tablet - PO 1 gm DAILY COLBY Administration Valsartan 160 mg 12/06/19 10:00 12/09/19 09:03 Diovan - PO 160 mg DAILY COLBY Administration ASSESSMENT/PLAN: This is an 89 year old woman with a history of HTN, hyperlipidemia, PAF, PAD, recent left TMA, DVT, GERD, anemia, RA who presented to the ED with pain in both feet. 1. PAD with recent left TMA 11/03, now with dehiscence and infection of surgical wound, gangrene of both feet - Continue Lipitor, Eliquis - Angiogram done 12/05 showed good flow into left foot via AT, good flow up to right ankle with disease in foot - Family does not want any invasive procedures or surgery - Continue Neurontin, OxyContin, oxycodone/Dilaudid as needed 2. Sepsis (tachycardia, tachypnea, leukocytosis) secondary to infected surgical wound - Now afebrile and WBC improving on cefepime, vancomycin, Flagyl - Methotrexate held secondary to infection 3. Hypokalemia - Improved 4. Paroxysmal atrial fib - Remains in sinus rhythm - Continue Cardizem CD, Toprol XL, Eliquis 5. HTN - Continue Diovan, Cardizem CD, Toprol XL 6. Hyperlipidemia - Continue Lipitor 7. History of DVT 8. GERD - Continue Protonix 9. Anemia - Likely secondary to chronic illness - Hgb stable 10. Rheumatoid arthritis - Methotrexate held secondary to infection - Continue prednisone 11. Moderate malnutrition - Continue ProSource, Magic Cup 12. Disposition - Awaiting evaluation by [place] Visit type - Emergency Visit Emergency Visit: Yes ED Registration Date: 12/01/19 Care time: The patient presented to the Emergency Department on the above date and was hospitalized for further evaluation of their emergent condition. - New Patient This patient is new to me today: No - Critical Care Critical Care patient: No - Discharge Referral Referred to [facility] Med P.C.: No
[2019-12-09] MEDS: CEFEPIME 1 GM in DEXTROSE 5%-WATER 100 ML IVPB SCH ×2 (10:57→22:37)
[2019-12-09] MEDS: oxyCODONE HCL 5 MG TABLET PO PRN (11:18)
[2019-12-09] MEDS: VANCOMYCIN 1 GRAM (PRE-DOCKED) 1,000 MG/250 ML BAG IVPB SCH (22:35)
[2019-12-09] MEDS: ATORVASTATIN CA 10 MG TABLET (FP) PO SCH (22:36)
[2019-12-10] MEDS: GABAPENTIN 300 MG CAPSULE PO SCH ×2 (05:17→18:47)
[2019-12-10] MEDS: oxyCODONE HCL 5 MG TABLET PO PRN ×3 (05:17→16:04)
[2019-12-10] MEDS: AMINO ACIDS/PROTEIN HYDROLYS 30 ML LIQUID.PKT PO SCH ×2 (08:39→18:36)
[2019-12-10] MEDS ORDERED: ESCITALOPRAM OXALATE 10 MG TABLET ONE (09:45)
[2019-12-10] MEDS ORDERED: CEFEPIME HCL 1 GM VIAL (RESTRICTED TO ID) ONE ×2 (09:47→20:46)
[2019-12-10] MEDS ORDERED: DEXTROSE 5%-WATER 100 ML IVPB ONE ×2 (09:47→20:46)
[2019-12-10] MEDS ORDERED: PT OWN MED DRAWER 7, Y5N ONE ×2 (09:47→10:13)
[2019-12-10] MEDS: predniSONE 5 MG TABLET (UD) PO SCH (09:59)
[2019-12-10] MEDS: PANTOPRAZOLE 40 MG TABLET PO SCH (09:59)
[2019-12-10] MEDS: APIXABAN 2.5 MG TABLET PO SCH ×2 (09:59→21:41)
[2019-12-10] MEDS: oxyCODONE HCL 10 MG SUSTAINED ACTING TABLET PO SCH ×2 (10:00→21:41)
[2019-12-10] MEDS: VALSARTAN 160 MG TABLET (UD) PO SCH (10:00)
[2019-12-10] MEDS: SODIUM CHLORIDE 1 GM TABLET PO SCH (10:00)
[2019-12-10] MEDS: ESCITALOPRAM OXALATE 20 MG TABLET PO SCH (10:01)
[2019-12-10] MEDS: POLYETHYLENE GLYCOL 3350 119 GM BTL PO SCH (10:11)
[2019-12-10] MEDS: CEFEPIME 1 GM in DEXTROSE 5%-WATER 100 ML IVPB SCH ×2 (11:21→21:44)
--- NOTE | 2019-12-10 11:36 | PN ---
Physical Exam: SUBJECTIVE: Patient seen and examined. She says she feels very tired and thinks it is from taking too many medications. OBJECTIVE: Vital Signs Period Temp Pulse Resp BP Sys/Ying Pulse Ox Last 24 Hr 98.1 F-98.5 F 20-86 18-20 121-124/52-63 94 GENERAL: The patient is awake, alert, and in no acute distress. LUNGS: Breath sounds equal, clear to auscultation bilaterally, no wheezes, no crackles, no accessory muscle use. HEART: Regular rate and rhythm, S1, S2, (+) 3/6 SM, no rub or gallop. ABDOMEN: Soft, nontender, nondistended, normoactive bowel sounds, no guarding, no rebound, no hepatosplenomegaly, no masses. EXTREMITIES: Both feet wrapped. Laboratory Results - last 24 hr 12/09/19 19:10 Vancomycin Pre-Dose 5.6 L Active Medications Generic Name Dose Route Start Last Admin Trade Name Freq PRN Reason Stop Dose Admin Acetaminophen 650 mg 12/05/19 16:06 12/07/19 12:50 Tylenol - PO 650 mg Q6H PRN Administration PAIN LEVEL 1-3 Amino Acids 30 ml 12/05/19 17:30 12/10/19 08:39 Prosource No Carb Liquid Pkt PO 30 ml BID@0800,1730 COLBY Administration Apixaban 2.5 mg 12/05/19 22:00 12/10/19 09:59 Eliquis - PO 2.5 mg BID COLBY Administration Atorvastatin Calcium 10 mg 12/05/19 22:00 12/09/19 22:36 Lipitor - PO 10 mg HS COLBY Administration Diltiazem HCl 180 mg 12/06/19 10:00 12/10/19 09:59 Cardizem Cd - PO 180 mg DAILY COLBY Administration Escitalopram Oxalate 20 mg 12/06/19 10:00 12/10/19 10:01 Lexapro - PO 20 mg DAILY COLBY Administration Gabapentin 300 mg 12/05/19 22:00 12/10/19 05:17 Neurontin - PO 300 mg TID COLBY Administration Hydromorphone HCl 2 mg 12/09/19 10:05 Dilaudid Vial - IVPB Q4H PRN PAIN LEVEL 7 - 10 Vancomycin HCl 1,000 mg in 250 mls @ 166.667 mls/hr 12/07/19 20:00 12/09/19 22:35 Vancomycin (Pre-Docked) IVPB 166.667 mls/hr Q24H COLBY Administration Protocol Cefepime HCl 1 gm/ Dextrose 100 mls @ 200 mls/hr 12/07/19 22:00 12/10/19 11: 21 IVPB 200 mls/hr BID COLBY Administration Protocol Metronidazole 500 mg in 100 mls @ 100 mls/hr 12/07/19 18:00 12/10/19 10:01 Flagyl 500mg Premixed Ivpb - IVPB 100 mls/hr Q8H-IV COLBY Administration Metoprolol Succinate 50 mg 12/05/19 22:00 12/09/19 22:36 Toprol Xl - PO 50 mg HS COLBY Administration Non-Formulary Medication 0.08 ml 12/06/19 10:00 12/09/19 09:17 Teriparatide [Forteo] SQ 0.08 ml DAILY COLBY Administration Oxycodone HCl 10 mg 12/07/19 22:00 12/10/19 10:00 Oxycontin - PO 10 mg BID COLBY Administration Oxycodone HCl 10 mg 12/09/19 10:04 12/10/19 05:17 Roxicodone - PO 10 mg Q4H PRN Administration PAIN LEVEL 4 - 6 Pantoprazole Sodium 40 mg 12/06/19 10:00 12/10/19 09:59 Protonix - PO 40 mg DAILY COLBY Administration Polyethylene Glycol 17 gm 12/05/19 19:45 12/10/19 10:11 Miralax (For Daily Use) - PO Not Given DAILY COLBY Prednisone 2.5 mg 12/06/19 10:00 12/10/19 09:59 Deltasone - PO 2.5 mg DAILY COLBY Administration Sodium Chloride 1 gm 12/06/19 10:00 12/10/19 10:00 Sodium Chloride Tablet - PO 1 gm DAILY COLBY Administration Valsartan 160 mg 12/06/19 10:00 12/10/19 10:00 Diovan - PO 160 mg DAILY COLBY Administration ASSESSMENT/PLAN: This is an 89 year old woman with a history of HTN, hyperlipidemia, PAF, PAD, recent left TMA, DVT, GERD, anemia, RA who presented to the ED with pain in both feet. 1. PAD with recent left TMA 11/03, now with dehiscence and infection of surgical wound, gangrene of both feet - Continue Lipitor, Eliquis - Angiogram done 12/05 showed good flow into left foot via AT, good flow up to right ankle with disease in foot - Family does not want any invasive procedures or surgery - Continue OxyContin, oxycodone/Dilaudid as needed - Will decrease Neurontin - Patient feels tired and question if she still needs Neurontin now that she is taking oxycodone 2. Sepsis (tachycardia, tachypnea, leukocytosis) secondary to infected surgical wound - Afebrile on cefepime, vancomycin, Flagyl - Methotrexate held secondary to infection 3. Hypokalemia - Improved 4. Paroxysmal atrial fib - Remains in sinus rhythm - Continue Cardizem CD, Toprol XL, Eliquis 5. HTN - Continue Diovan, Cardizem CD, Toprol XL 6. Hyperlipidemia - Continue Lipitor 7. History of DVT 8. GERD - Continue Protonix 9. Anemia - Likely secondary to chronic illness 10. Rheumatoid arthritis - Methotrexate held secondary to infection - Continue prednisone 11. Moderate malnutrition - Continue ProSource, Magic Cup 12. Disposition - Awaiting evaluation by [facility] Visit type - Emergency Visit Emergency Visit: Yes ED Registration Date: 12/01/19 Care time: The patient presented to the Emergency Department on the above date and was hospitalized for further evaluation of their emergent condition. - New Patient This patient is new to me today: No - Critical Care Critical Care patient: No - Discharge Referral Referred to [facility] Med P.C.: No
[2019-12-10] MEDS: TERIPARATIDE SQ SCH (13:44)
[2019-12-10] MEDS: VANCOMYCIN 1 GRAM (PRE-DOCKED) 1,000 MG/250 ML BAG IVPB SCH (20:27)
[2019-12-10] MEDS: ATORVASTATIN CA 10 MG TABLET (FP) PO SCH (21:41)
[2019-12-10] MEDS: GABAPENTIN 100 MG CAPSULE PO SCH (21:41)
[2019-12-11] MEDS: GABAPENTIN 100 MG CAPSULE PO SCH ×3 (05:47→21:14)
--- NOTE | 2019-12-11 07:23 | PN ---
Physical Exam: SUBJECTIVE: Patient seen and examined at bed side , had fever over night , POD#6 , seems comfortable in bed pain controlled breathing is fine cont incentive spirometry family denies any surgery for now signs DNR/DNI pending placement to [facility] OBJECTIVE: Vital Signs Period Temp Pulse Resp BP Sys/Ying Pulse Ox Last 24 Hr 98 F-98.6 F 73-90 18-20 104-120/58-60 94-94 GENERAL: awake alert in mild distress HEAD: NC/AT EYES: EOMI, Conjunctiva clear, sclera anicteric ENT: dry mucous membrane NECK: Supple, no JVD LUNGS:decrease breath sounds at the bases HEART: RRR, NSR, normal s1, s2, 4/6 systolic murmur ABDOMEN: Soft, ND, NT, +BS 4 Q, no CVA Tenderness LOWER EXTREMITIES: no edema, ,Gangrene of toes, 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 Left TMA wound open with gangrene of lateral foot and heel. less tender less warm NEUROLOGICAL: No focal deficit. Normal speech. gait not observed. PSYCHIATRIC: Cooperative. Good eye contact. SKIN: Warm, dry, Active Medications Generic Name Dose Route Start Last Admin Trade Name Freq PRN Reason Stop Dose Admin Acetaminophen 650 mg 12/05/19 16:06 12/07/19 12:50 Tylenol - PO 650 mg Q6H PRN Administration PAIN LEVEL 1-3 Amino Acids 30 ml 12/05/19 17:30 12/10/19 18:36 Prosource No Carb Liquid Pkt PO 30 ml BID@0800,1730 COLBY Administration Apixaban 2.5 mg 12/05/19 22:00 12/10/19 21:41 Eliquis - PO 2.5 mg BID COLBY Administration Atorvastatin Calcium 10 mg 12/05/19 22:00 12/10/19 21:41 Lipitor - PO 10 mg HS COLBY Administration Diltiazem HCl 180 mg 12/06/19 10:00 12/10/19 09:59 Cardizem Cd - PO 180 mg DAILY COLBY Administration Escitalopram Oxalate 20 mg 12/06/19 10:00 12/10/19 10:01 Lexapro - PO 20 mg DAILY COLBY Administration Gabapentin 100 mg 12/10/19 22:00 12/11/19 05:47 Neurontin - PO 100 mg TID COLBY Administration Hydromorphone HCl 2 mg 12/09/19 10:05 Dilaudid Vial - IVPB Q4H PRN PAIN LEVEL 7 - 10 Vancomycin HCl 1,000 mg in 250 mls @ 166.667 mls/hr 12/07/19 20:00 12/10/19 20:27 Vancomycin (Pre-Docked) IVPB 166.667 mls/hr Q24H COLBY Administration Protocol Cefepime HCl 1 gm/ Dextrose 100 mls @ 200 mls/hr 12/07/19 22:00 12/10/19 21: 44 IVPB 200 mls/hr BID COLBY Administration Protocol Metronidazole 500 mg in 100 mls @ 100 mls/hr 12/07/19 18:00 12/11/19 02:03 Flagyl 500mg Premixed Ivpb - IVPB 100 mls/hr Q8H-IV COLBY Administration Metoprolol Succinate 50 mg 12/05/19 22:00 12/10/19 21:41 Toprol Xl - PO 50 mg HS COLBY Administration Non-Formulary Medication 0.08 ml 12/06/19 10:00 12/10/19 13:44 Teriparatide [Forteo] SQ 0.08 ml DAILY COLBY Administration Oxycodone HCl 10 mg 12/07/19 22:00 12/10/19 21:41 Oxycontin - PO 10 mg BID COLBY Administration Oxycodone HCl 10 mg 12/09/19 10:04 12/10/19 16:04 Roxicodone - PO 10 mg Q4H PRN Administration PAIN LEVEL 4 - 6 Pantoprazole Sodium 40 mg 12/06/19 10:00 12/10/19 09:59 Protonix - PO 40 mg DAILY COLBY Administration Polyethylene Glycol 17 gm 12/05/19 19:45 12/10/19 10:11 Miralax (For Daily Use) - PO Not Given DAILY COLBY Prednisone 2.5 mg 12/06/19 10:00 12/10/19 09:59 Deltasone - PO 2.5 mg DAILY COLBY Administration Sodium Chloride 1 gm 12/06/19 10:00 12/10/19 10:00 Sodium Chloride Tablet - PO 1 gm DAILY COLBY Administration Valsartan 160 mg 12/06/19 10:00 12/10/19 10:00 Diovan - PO 160 mg DAILY COLBY Administration ASSESSMENT/PLAN: 89 y/o F with a PMHx of HTN, GERD, HLD, DVT on chronic AC (eliquis), severe PVD s/p LLE angioplasty, s/p Lt TMA on 11/03 presenting with b/l leg pain. Pt is in severe sharp pain worse in the RLE, associated with warmth and redness. Pt's son at bedside providing most of the history. #PAD with recent left TMA 11/03, now with dehiscence and infection of surgical wound, gangrene of both feet * had an angiogram today with disease limited to right foot , BKA offer for family and will be decided, vascualr on board * cont eliquis and lipitor * pain control with dilauded and oxycodone and kade pentin * resume diet * Angiogram reviewed * abx per ID increase vanco to 1 gm daily and start cefipime /flagyl #Sepsis 2/2 foot gangreen /cellulitis * cont abx vanc start cefepim and flagyl * vanco trough , increase vanco to 1gm daily * IV fluids dc due to cxr congestion * blood cx negative cont to follow * held methotrexat due to infection * had fever yesteday and blood cx re send # SOB due to volume over loaded r.o PNA * DC fludis * 20 lasix IV push once * sat 95 % on 2 l NC * cont abx #Paroxysmal A. fibwith RVR #HTN * cont diovan * NSR for now * cont cardizim, toprol and eliquis #Normocytic Anemia, chronic , monitor H/H daily , * normal transfusion threshold below 8 * likely due to chronic disease #HLD Cont lipitor # Hypoglycemia :resolved resume diet # Hypokalemia replinished 20 pO potassium # constipation likely due to immobility and pain medication , can start on Miralax 17 mg daily # malnourished : high protein diet BMI 18.6 # H/O DVT #RA * continue 2.5 prednisone and hold methotrexate due to infection #GERD * Continue protonix #Parkinsonism * Continue with home dose Sinemet # Sever protien calorie malnutrition , evidenced by moderate subcutaneous fat loss around orbital and upper arm regions , moderate muscle loss around temporal and calvicular regions clinical indicators BMI 18.6,WT 105 LB, average intake less than nutritional needs ALB 2.8-2.1 total loss protien drop from 6.0- 4.9 risk factors wound healing advance age , chronic illness will start Magic cup prosurce BID # FEN * no standing fluids * Monitor lytes * NS controlled diabetic diet # proph : * DVT on ELiquis 2.5 BID * GI on PPI # Dispo : M/S familyd denies BKA pending [facility] Visit type - Emergency Visit Emergency Visit: Yes ED Registration Date: 12/01/19 Care time: The patient presented to the Emergency Department on the above date and was hospitalized for further evaluation of their emergent condition. - New Patient This patient is new to me today: No - Critical Care Critical Care patient: No - Discharge Referral Referred to [facility] Med P.C.: No ATTENDING PHYSICIAN STATEMENT I saw and evaluated the patient. I reviewed the resident's note and discussed the case with the resident. I agree with the resident's findings and plan as documented. SUBJECTIVE: OBJECTIVE: ASSESSMENT AND PLAN:
[2019-12-11] MEDS: oxyCODONE HCL 5 MG TABLET PO PRN ×2 (08:02→12:11)
[2019-12-11] MEDS: AMINO ACIDS/PROTEIN HYDROLYS 30 ML LIQUID.PKT PO SCH ×2 (08:02→17:21)
[2019-12-11] MEDS ORDERED: ESCITALOPRAM OXALATE 10 MG TABLET ONE (09:51)
[2019-12-11] MEDS ORDERED: DEXTROSE 5%-WATER 100 ML IVPB ONE ×3 (09:51→20:31)
[2019-12-11] MEDS ORDERED: CEFEPIME HCL 1 GM VIAL (RESTRICTED TO ID) ONE ×3 (09:51→20:30)
[2019-12-11] MEDS: CEFEPIME 1 GM in DEXTROSE 5%-WATER 100 ML IVPB SCH ×2 (09:55→21:15)
[2019-12-11] MEDS: VALSARTAN 160 MG TABLET (UD) PO SCH (09:55)
[2019-12-11] MEDS: PANTOPRAZOLE 40 MG TABLET PO SCH (09:55)
[2019-12-11] MEDS: predniSONE 5 MG TABLET (UD) PO SCH (09:55)
[2019-12-11] MEDS: ESCITALOPRAM OXALATE 20 MG TABLET PO SCH (09:56)
[2019-12-11] MEDS: APIXABAN 2.5 MG TABLET PO SCH ×2 (09:56→21:14)
[2019-12-11] MEDS: oxyCODONE HCL 10 MG SUSTAINED ACTING TABLET PO SCH ×2 (09:56→21:14)
[2019-12-11] MEDS: SODIUM CHLORIDE 1 GM TABLET PO SCH (09:58)
[2019-12-11] MEDS: POLYETHYLENE GLYCOL 3350 119 GM BTL PO SCH (10:10)
[2019-12-11] MEDS: TERIPARATIDE SQ SCH (10:21)
[2019-12-11] MEDS ORDERED: PT OWN MED DRAWER 7, Y5N ONE ×2 (11:39→13:44)
[2019-12-11] MEDS: VANCOMYCIN 750 MG in DEXTROSE 5%-WATER - 250 ML IVPB SCH ×2 (13:55→23:40)
--- NOTE | 2019-12-11 14:19 | PN ---
Teaching Attending Note Name of Resident: Antwan Lynn ATTENDING PHYSICIAN STATEMENT I saw and evaluated the patient. I reviewed the resident's note and discussed the case with the resident. I agree with the resident's findings and plan as documented. SUBJECTIVE: Patient evaluated at bedside, alert, answering questions, Refusing invasive procedures/surgery. Awaiting [facility] care. VS otherwise stable , no fevers. OBJECTIVE: PE GENERAL: comfortable, alert, answering questionsm tired appearing, son at bedside HEAD: NC/AT EYES: EOMI, Conjunctiva clear, sclera anicteric ENT: dry mucous membrane NECK: Supple, no JVD LUNGS: CTAB anteriorally HEART: RRR, NSR, normal s1, s2, 4/6 systolic murmur ABDOMEN: Soft, ND, NT, +BS 4 Q, no CVA Tenderness LOWER EXTREMITIES: no edema, +2DP pulse,Gangrene of toes, 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 Left TMA wound open with gangrene of lateral foot and heel. erythema improved in LE b/l. NEUROLOGICAL: No focal deficit. Normal speech. gait not observed. SKIN: Warm, dry. Vital Signs - 24 hr 12/10/19 12/10/19 12/10/19 18:00 21:00 22:00 Temperature 98.4 F 98.5 F Pulse Rate 75 80 Respiratory 19 18 Rate Blood Pressure 104/58 L 110/60 O2 Sat by Pulse 94 L Oximetry (%) 12/11/19 12/11/19 09:00 10:00 Temperature 97.8 F Pulse Rate 78 Respiratory 20 Rate Blood Pressure 114/60 O2 Sat by Pulse 95 Oximetry (%) Microbiology 12/06/19 13:40 Blood - Peripheral Venous Blood Culture - Final NO GROWTH AFTER 5 DAYS INCUBATION 12/06/19 13:35 Blood - Peripheral Venous Blood Culture - Final NO GROWTH AFTER 5 DAYS INCUBATION 12/06/19 15:00 Urine - Urine Clean Catch Urine Culture - Final Yeast Like Organism 12/02/19 17:00 Blood - Peripheral Venous Blood Culture - Final NO GROWTH AFTER 5 DAYS INCUBATION 12/02/19 17:00 Blood - Peripheral Venous Blood Culture - Final NO GROWTH AFTER 5 DAYS INCUBATION Current Medications Generic Name Dose Route Start Last Admin Trade Name Freq PRN Reason Stop Dose Admin Acetaminophen 650 mg 12/05/19 16:06 12/07/19 12:50 Tylenol - PO 650 mg Q6H PRN Administration PAIN LEVEL 1-3 Amino Acids 30 ml 12/05/19 17:30 12/11/19 08:02 Prosource No Carb Liquid Pkt PO 30 ml BID@0800,1730 COLBY Administration Apixaban 2.5 mg 12/05/19 22:00 12/11/19 09:56 Eliquis - PO 2.5 mg BID COLBY Administration Atorvastatin Calcium 10 mg 12/05/19 22:00 12/10/19 21:41 Lipitor - PO 10 mg HS COLBY Administration Diltiazem HCl 180 mg 12/06/19 10:00 12/11/19 09:55 Cardizem Cd - PO 180 mg DAILY COLBY Administration Escitalopram Oxalate 20 mg 12/06/19 10:00 12/11/19 09:56 Lexapro - PO 20 mg DAILY COLBY Administration Gabapentin 100 mg 12/10/19 22:00 12/11/19 13:55 Neurontin - PO 100 mg TID COLBY Administration Hydromorphone HCl 2 mg 12/09/19 10:05 Dilaudid Vial - IVPB Q4H PRN PAIN LEVEL 7 - 10 Cefepime HCl 1 gm/ Dextrose 100 mls @ 200 mls/hr 12/07/19 22:00 12/11/19 09: 55 IVPB 200 mls/hr BID COLBY Administration Protocol Metronidazole 500 mg in 100 mls @ 100 mls/hr 12/07/19 18:00 12/11/19 10:35 Flagyl 500mg Premixed Ivpb - IVPB 100 mls/hr Q8H-IV COLBY Administration Vancomycin HCl 750 mg/ 250 mls @ 250 mls/hr 12/11/19 12:00 12/11/19 13:55 Dextrose IVPB 250 mls/hr Q12H COLBY Administration Protocol Metoprolol Succinate 50 mg 12/05/19 22:00 12/10/19 21:41 Toprol Xl - PO 50 mg HS COLBY Administration Non-Formulary Medication 0.08 ml 12/06/19 10:00 12/11/19 10:21 Teriparatide [Forteo] SQ 0.08 ml DAILY COLBY Administration Oxycodone HCl 10 mg 12/07/19 22:00 12/11/19 09:56 Oxycontin - PO 10 mg BID COLBY Administration Oxycodone HCl 10 mg 12/09/19 10:04 12/11/19 12:11 Roxicodone - PO 10 mg Q4H PRN Administration PAIN LEVEL 4 - 6 Pantoprazole Sodium 40 mg 12/06/19 10:00 12/11/19 09:55 Protonix - PO 40 mg DAILY COLBY Administration Polyethylene Glycol 17 gm 12/05/19 19:45 12/11/19 10:10 Miralax (For Daily Use) - PO 17 gm DAILY COLBY Administration Prednisone 2.5 mg 12/06/19 10:00 12/11/19 09:55 Deltasone - PO 2.5 mg DAILY COLBY Administration Sodium Chloride 1 gm 12/06/19 10:00 12/11/19 09:58 Sodium Chloride Tablet - PO 1 gm DAILY COLBY Administration Valsartan 160 mg 12/06/19 10:00 12/11/19 09:55 Diovan - PO 160 mg DAILY COLBY Administration ASSESSMENT/PLAN: 89 F h/o HTN, GERD, HLD, DVT on chronic AC (eliquis), severe PVD s/p LLE angioplasty, s/p Lt TMA on 11/03 presenting with b/l leg pain. Pt is in severe sharp pain worse in the RLE, associated with warmth and redness. R foot gangrene and L foot severe PAD requiring L BKA. Family wishing not to undergo any invasive procedures. Severe PAD with recent left TMA 11/03, now with dehiscence and infection of surgical wound, gangrene of both feet Angiogram done, revealing disease in R foot, family offered L BKA, family and patient expressed wishes not to undergo invasive measures/surgery cont eliquis and lipitor pain control with dilauded and oxycodone and gabapentin resume diet Angiogram reviewed Hospice referral as family wants just comfort care Vascular consult: Dr Goodwin Sepsis 2/2 foot gangreen cont abx vanc/zosyn follow with Vanc trough, increase Vancomycin as needed to target 15-20 trough ( persistently subtherapeutic around 5) blood cx negative cont to follow MTX held due to active infection no fevers in the past 2 days SOB improved with opioids cont., O2 PRN Paroxysmal A. fibwith RVR rate controlled, on AC HTN cont diovan NSR for now cont cardizim, toprol and eliquis Normocytic Anemia, chronic , monitor H/H daily , normal transfusion threshold below 8 likely due to chronic disease HLD Cont lipitor Hypoglycemia :resolved resume diet Hypokalemia replinished 20 pO potassium Malnourished : high protein diet BMI 18.6 RA continue 2.5 prednisone and hold methotrexate due to infection GERD Continue protonix Parkinsonism Continue with home dose Sinemet DVT ppx: DVT on ELiquis 2.5 BID GI on PPI Med Surg DNR/DNI, family and patient do not want any invasive procedures Awaiting [facility] placement (possibly home hospice)
[2019-12-11] MEDS: HYDROmorphone HCl 2 MG/ML VIAL IVPB PRN (15:04)
[2019-12-11] MEDS: ATORVASTATIN CA 10 MG TABLET (FP) PO SCH (21:14)
[2019-12-12] MEDS: GABAPENTIN 100 MG CAPSULE PO SCH ×3 (05:39→21:16)
--- NOTE | 2019-12-12 07:37 | PN ---
Physical Exam: SUBJECTIVE: Patient seen and examined at bed side , had fever over night , POD#8 , seems comfortable in bed still in pain breathing is fine cont incentive spirometry family denies any surgery for now signs DNR/DNI pending placement to [facility] to decide abx ipon dc OBJECTIVE: Vital Signs Period Temp Pulse Resp BP Sys/Ying Pulse Ox Last 24 Hr 97.8 F-98.3 F 70-82 18-20 96-135/50-72 95-95 GENERAL: awake alert in mild distress HEAD: NC/AT EYES: EOMI, Conjunctiva clear, sclera anicteric ENT: dry mucous membrane NECK: Supple, no JVD LUNGS:decrease breath sounds at the bases HEART: RRR, NSR, normal s1, s2, 4/6 systolic murmur ABDOMEN: Soft, ND, NT, +BS 4 Q, no CVA Tenderness LOWER EXTREMITIES: no edema, ,Gangrene of toes, 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 Left TMA wound open with gangrene of lateral foot and heel. less tender less warm NEUROLOGICAL: No focal deficit. Normal speech. gait not observed. PSYCHIATRIC: Cooperative. Good eye contact. SKIN: Warm, dry, Active Medications Generic Name Dose Route Start Last Admin Trade Name Freq PRN Reason Stop Dose Admin Acetaminophen 650 mg 12/05/19 16:06 12/07/19 12:50 Tylenol - PO 650 mg Q6H PRN Administration PAIN LEVEL 1-3 Amino Acids 30 ml 12/05/19 17:30 12/11/19 17:21 Prosource No Carb Liquid Pkt PO 30 ml BID@0800,1730 COLBY Administration Apixaban 2.5 mg 12/05/19 22:00 12/11/19 21:14 Eliquis - PO 2.5 mg BID COLBY Administration Atorvastatin Calcium 10 mg 12/05/19 22:00 12/11/19 21:14 Lipitor - PO 10 mg HS COLBY Administration Diltiazem HCl 180 mg 12/06/19 10:00 12/11/19 09:55 Cardizem Cd - PO 180 mg DAILY COLBY Administration Escitalopram Oxalate 20 mg 12/06/19 10:00 12/11/19 09:56 Lexapro - PO 20 mg DAILY COLBY Administration Gabapentin 100 mg 12/10/19 22:00 12/12/19 05:39 Neurontin - PO 100 mg TID COLBY Administration Hydromorphone HCl 2 mg 12/09/19 10:05 12/11/19 15:04 Dilaudid Vial - IVPB 2 mg Q4H PRN Administration PAIN LEVEL 7 - 10 Cefepime HCl 1 gm/ Dextrose 100 mls @ 200 mls/hr 12/07/19 22:00 12/11/19 21: 15 IVPB 200 mls/hr BID COLBY Administration Protocol Metronidazole 500 mg in 100 mls @ 100 mls/hr 12/07/19 18:00 12/12/19 01:32 Flagyl 500mg Premixed Ivpb - IVPB 100 mls/hr Q8H-IV COLBY Administration Vancomycin HCl 750 mg/ 250 mls @ 250 mls/hr 12/11/19 12:00 12/11/19 23:40 Dextrose IVPB 250 mls/hr Q12H COLBY Administration Protocol Metoprolol Succinate 50 mg 12/05/19 22:00 12/11/19 21:14 Toprol Xl - PO 50 mg HS COLBY Administration Non-Formulary Medication 0.08 ml 12/06/19 10:00 12/11/19 10:21 Teriparatide [Forteo] SQ 0.08 ml DAILY COLBY Administration Oxycodone HCl 10 mg 12/07/19 22:00 12/11/19 21:14 Oxycontin - PO 10 mg BID COLBY Administration Oxycodone HCl 10 mg 12/09/19 10:04 12/11/19 12:11 Roxicodone - PO 10 mg Q4H PRN Administration PAIN LEVEL 4 - 6 Pantoprazole Sodium 40 mg 12/06/19 10:00 12/11/19 09:55 Protonix - PO 40 mg DAILY COLBY Administration Polyethylene Glycol 17 gm 12/05/19 19:45 12/11/19 10:10 Miralax (For Daily Use) - PO 17 gm DAILY COLBY Administration Prednisone 2.5 mg 12/06/19 10:00 12/11/19 09:55 Deltasone - PO 2.5 mg DAILY COLBY Administration Sodium Chloride 1 gm 12/06/19 10:00 12/11/19 09:58 Sodium Chloride Tablet - PO 1 gm DAILY COLBY Administration Valsartan 160 mg 12/06/19 10:00 12/11/19 09:55 Diovan - PO 160 mg DAILY COLBY Administration ASSESSMENT/PLAN: 89 y/o F with a PMHx of HTN, GERD, HLD, DVT on chronic AC (eliquis), severe PVD s/p LLE angioplasty, s/p Lt TMA on 11/03 presenting with b/l leg pain. Pt is in severe sharp pain worse in the RLE, associated with warmth and redness. Pt's son at bedside providing most of the history. #PAD with recent left TMA 11/03, now with dehiscence and infection of surgical wound, gangrene of both feet * had an angiogram today with disease limited to right foot , BKA offer for family and will be decided, vascualr on board * cont eliquis and lipitor * pain control with dilauded and oxycodone and kade pentin * resume diet * Angiogram reviewed * abx per ID increase vanco to 1 gm daily and start cefipime /flagyl #Sepsis 2/2 foot gangreen /cellulitis * cont abx vanc start cefepim and flagyl * vanco trough , increase vanco to 1gm daily * IV fluids dc due to cxr congestion * blood cx negative cont to follow * held methotrexat due to infection * had fever yesteday and blood cx re send # SOB due to volume over loaded r.o PNA * DC fludis * 20 lasix IV push once * sat 95 % on 2 l NC * cont abx #Paroxysmal A. fibwith RVR #HTN * cont diovan * NSR for now * cont cardizim, toprol and eliquis #Normocytic Anemia, chronic , monitor H/H daily , * normal transfusion threshold below 8 * likely due to chronic disease #HLD Cont lipitor # Hypoglycemia :resolved resume diet # Hypokalemia replinished 20 pO potassium # constipation likely due to immobility and pain medication , can start on Miralax 17 mg daily # malnourished : high protein diet BMI 18.6 # H/O DVT #RA * continue 2.5 prednisone and hold methotrexate due to infection #GERD * Continue protonix #Parkinsonism * Continue with home dose Sinemet # Sever protien calorie malnutrition , evidenced by moderate subcutaneous fat loss around orbital and upper arm regions , moderate muscle loss around temporal and calvicular regions clinical indicators BMI 18.6,WT 105 LB, average intake less than nutritional needs ALB 2.8-2.1 total loss protien drop from 6.0- 4.9 risk factors wound healing advance age , chronic illness will start Magic cup prosurce BID # FEN * no standing fluids * Monitor lytes * NS controlled diabetic diet # proph : * DVT on ELiquis 2.5 BID * GI on PPI # Dispo : M/S familyd denies BKA pending placemnet to [facility] Visit type - Emergency Visit Emergency Visit: Yes ED Registration Date: 12/01/19 Care time: The patient presented to the Emergency Department on the above date and was hospitalized for further evaluation of their emergent condition. - New Patient This patient is new to me today: No - Critical Care Critical Care patient: No - Discharge Referral Referred to [facility] Med P.C.: No ATTENDING PHYSICIAN STATEMENT I saw and evaluated the patient. I reviewed the resident's note and discussed the case with the resident. I agree with the resident's findings and plan as documented. SUBJECTIVE: OBJECTIVE: ASSESSMENT AND PLAN:
[2019-12-12 07:57] LABS: BASO % 0.3 % (0-2.0); EOS % 1.6 % (0-4.5); HEMATOCRIT 26.1 % (32.4-45.2); HEMOGLOBIN 8.3 GM/dL (10.7-15.3); LYMPH % 17.8 % (8-40); MCH 27.7 pg (25.7-33.7); MCHC 31.7 g/dl (32.0-36.0); MEAN CELL VOLUME 87.2 fl (80-96); MEAN PLT VOLUME 7.7 fl (7.5-11.1); MONO % 8.9 % (3.8-10.2); NEUT % 71.4 % (42.8-82.8); PLATELET COUNT 411 K/MM3 (134-434); RBC 2.99 M/mm3 (3.60-5.2); RDW 16.8 % (11.6-15.6); WHITE BLOOD COUNT 14.1 K/mm3 (4.0-10.0)
[2019-12-12] MEDS: oxyCODONE HCL 5 MG TABLET PO PRN ×3 (08:05→17:18)
[2019-12-12] MEDS: ACETAMINOPHEN 325 MG TABLET (FP) PO PRN ×2 (08:05→17:18)
[2019-12-12 08:17] LABS: BLOOD UREA NITROGEN 19.5 mg/dL (7-18); CALCIUM 8.4 mg/dL (8.5-10.1); CREATININE 0.3 mg/dL (0.55-1.3); POTASSIUM 3.8 mmol/L (3.5-5.1)
[2019-12-12] MEDS: AMINO ACIDS/PROTEIN HYDROLYS 30 ML LIQUID.PKT PO SCH ×2 (08:58→17:17)
[2019-12-12] MEDS ORDERED: PT OWN MED DRAWER 7, Y5N ONE (09:19)
[2019-12-12] MEDS ORDERED: ESCITALOPRAM OXALATE 10 MG TABLET ONE (09:19)
[2019-12-12] MEDS: POLYETHYLENE GLYCOL 3350 119 GM BTL PO SCH (09:21)
[2019-12-12] MEDS: predniSONE 5 MG TABLET (UD) PO SCH (09:22)
[2019-12-12] MEDS: VALSARTAN 160 MG TABLET (UD) PO SCH (09:23)
[2019-12-12] MEDS: APIXABAN 2.5 MG TABLET PO SCH ×2 (09:23→21:34)
[2019-12-12] MEDS: oxyCODONE HCL 10 MG SUSTAINED ACTING TABLET PO SCH ×2 (09:23→21:34)
[2019-12-12] MEDS: PANTOPRAZOLE 40 MG TABLET PO SCH (09:23)
[2019-12-12] MEDS: ESCITALOPRAM OXALATE 20 MG TABLET PO SCH (09:23)
[2019-12-12] MEDS: SODIUM CHLORIDE 1 GM TABLET PO SCH (09:23)
[2019-12-12] MEDS: TERIPARATIDE SQ SCH (09:25)
--- NOTE | 2019-12-12 09:36 | PN ---
Teaching Attending Note Name of Resident: Antwan Lynn ATTENDING PHYSICIAN STATEMENT I saw and evaluated the patient. I reviewed the resident's note and discussed the case with the resident. I agree with the resident's findings and plan as documented. SUBJECTIVE: Patient remained afebrile hemodynamically stable OBJECTIVE: Vital Signs Temperature 98.2 F 12/12/19 09:16 Pulse Rate 73 12/12/19 09:16 Respiratory Rate 18 12/12/19 09:16 Blood Pressure 112/57 L 12/12/19 09:16 O2 Sat by Pulse Oximetry (%) 95 12/11/19 21:00 General: Elderly female, comfortable, not in distress HEENT; mucous membranes moist, no anemia, no jaundice, PERRLA, no nystagmus Neck: No JVD, supple, no bruit, thyroid palpably normal, normal carotid pulsations. Chest: Nontender, clear to auscultation bilaterally CVS: S1-S2 regular no murmur/gallop/rub Abdomen: Nondistended, soft, bowel sounds present. 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 , no gross motor sensory deficit CBC, BMP 12/12/19 07:10 12/12/19 07:10 Active Medications Acetaminophen (Tylenol -) 650 mg PO Q6H PRN PRN Reason: PAIN LEVEL 1-3 Last Admin: 12/12/19 08:05 Dose: 650 mg Amino Acids (Prosource No Carb Liquid Pkt) 30 ml PO BID@0800,1730 [facility] Last Admin: 12/12/19 08:58 Dose: 30 ml Apixaban (Eliquis -) 2.5 mg PO BID [facility] Last Admin: 12/12/19 09:23 Dose: 2.5 mg Atorvastatin Calcium (Lipitor -) 10 mg PO HS [facility] Last Admin: 12/11/19 21:14 Dose: 10 mg Diltiazem HCl (Cardizem Cd -) 180 mg PO DAILY [facility] Last Admin: 12/12/19 09:22 Dose: 180 mg Escitalopram Oxalate (Lexapro -) 20 mg PO DAILY [facility] Last Admin: 12/12/19 09:23 Dose: 20 mg Gabapentin (Neurontin -) 100 mg PO TID [facility] Last Admin: 12/12/19 05:39 Dose: 100 mg Hydromorphone HCl (Dilaudid Vial -) 2 mg IVPB Q4H PRN PRN Reason: PAIN LEVEL 7 - 10 Last Admin: 12/11/19 15:04 Dose: 2 mg Cefepime HCl 1 gm/ Dextrose 100 mls @ 200 mls/hr IVPB BID [facility]; Protocol Last Admin: 12/11/19 21:15 Dose: 200 mls/hr Metronidazole (Flagyl 500mg Premixed Ivpb -) 500 mg in 100 mls @ 100 mls/hr IVPB Q8H-IV [facility] Last Admin: 12/12/19 09:24 Dose: 100 mls/hr Vancomycin HCl 750 mg/ (Dextrose) 250 mls @ 250 mls/hr IVPB Q12H [facility]; Protocol Last Admin: 12/11/19 23:40 Dose: 250 mls/hr Metoprolol Succinate (Toprol Xl -) 50 mg PO HS [facility] Last Admin: 12/11/19 21:14 Dose: 50 mg Non-Formulary Medication (Teriparatide [Forteo]) 0.08 ml SQ DAILY [facility] Last Admin: 12/12/19 09:25 Dose: 0.08 ml Oxycodone HCl (Oxycontin -) 10 mg PO BID [facility] Last Admin: 12/12/19 09:23 Dose: 10 mg Oxycodone HCl (Roxicodone -) 10 mg PO Q4H PRN PRN Reason: PAIN LEVEL 4 - 6 Last Admin: 12/12/19 08:05 Dose: 10 mg Pantoprazole Sodium (Protonix -) 40 mg PO DAILY [facility] Last Admin: 12/12/19 09:23 Dose: 40 mg Polyethylene Glycol (Miralax (For Daily Use) -) 17 gm PO DAILY [facility] Last Admin: 12/12/19 09:21 Dose: Not Given Prednisone (Deltasone -) 2.5 mg PO DAILY [facility] Last Admin: 12/12/19 09:22 Dose: 2.5 mg Sodium Chloride (Sodium Chloride Tablet -) 1 gm PO DAILY [facility] Last Admin: 12/12/19 09:23 Dose: 1 gm Valsartan (Diovan -) 160 mg PO DAILY [facility] Last Admin: 12/12/19 09:23 Dose: 160 mg ASSESSMENT AND PLAN:89 F h/o HTN, GERD, HLD, DVT on chronic AC (eliquis), severe PVD s/p LLE angioplasty, s/p Lt TMA on 1/10 presenting with b/l leg pain. Pt is in severe sharp pain worse in the RLE, associated with warmth and redness. R foot gangrene and L foot severe PAD requiring L BKA. Family wishing not to undergo any invasive procedures. Plan: Continue IV antibiotic patient is awaiting hospice placement, please discuss with ID for duration of antibiotic/oral switch Problem List - Problems (1) Cellulitis Assessment/Plan: On PAD ulcers, currently on cefepime and vancomycin, patient opted for hospice care will discuss with ID about duration of antibiotic and orders. Problems reviewed: Yes Code(s): L03.90 - CELLULITIS, UNSPECIFIED Qualifiers: Site of cellulitis: extremity Site of cellulitis of extremity: lower extremity Laterality: right Qualified Code(s): L03.115 - Cellulitis of right lower limb (2) PVD (peripheral vascular disease) Problems reviewed: Yes Code(s): I73.9 - PERIPHERAL VASCULAR DISEASE, UNSPECIFIED (3) Ischemic pain of left foot Assessment/Plan: due to peripheral artery disease underwent angiogram and evaluation by vascular surgery patient opted for no intervention palliative care continue wound care Problems reviewed: Yes Code(s): M79.672 - PAIN IN LEFT FOOT; I99.9 - UNSPECIFIED DISORDER OF CIRCULATORY SYSTEM (4) Afib Assessment/Plan: On anticoagulation rate controlled Problems reviewed: Yes Code(s): I48.91 - UNSPECIFIED ATRIAL FIBRILLATION Qualifiers: Atrial fibrillation type: chronic (5) HTN (hypertension) Code(s): I10 - ESSENTIAL (PRIMARY) HYPERTENSION Qualifiers: Hypertension type: essential hypertension Qualified Code(s): I10 - Essential (primary) hypertension (6) Type 2 diabetes mellitus with foot ulcer Assessment/Plan: Optimize glycemic control Problems reviewed: Yes Code(s): E11.621 - TYPE 2 DIABETES MELLITUS WITH FOOT ULCER; L97.509 - NON- PRESSURE CHRONIC ULCER OTH PRT UNSP FOOT W UNSP SEVERITY Qualifiers: Diabetes mellitus residential insulin use: 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
[2019-12-12] MEDS ORDERED: CEFEPIME HCL 1 GM VIAL (RESTRICTED TO ID) ONE ×2 (10:14→21:14)
[2019-12-12] MEDS ORDERED: DEXTROSE 5%-WATER 100 ML IVPB ONE ×2 (10:14→21:14)
[2019-12-12] MEDS: CEFEPIME 1 GM in DEXTROSE 5%-WATER 100 ML IVPB SCH ×2 (10:16→21:18)
[2019-12-12] MEDS: VANCOMYCIN 750 MG in DEXTROSE 5%-WATER - 250 ML IVPB SCH ×2 (11:57→23:40)
--- NOTE | 2019-12-12 12:50 | CONSULT ---
Admitting History and Physical - Primary Care Physician PCP: Dolly Catalan - Admission History of Present Illness: 89 y/o F with a PMHx of HTN, GERD, HLD, DVT on chronic AC (eliquis), severe PVD s/p LLE angioplasty, s/p Lt TMA on 11/03 presenting with b/l leg pain R foot gangrene and L foot severe PAD requiring L BKA. Family wishing not to undergo any invasive procedures. Awaiting hospice placement Selected Entries 12/11/19 12/11/19 12/11/19 10:00 12:21 14:00 Breakfast 25% Lunch 50% Supper Temperature 97.8 F 98.3 F 12/11/19 12/11/19 12/11/19 17:16 19:16 22:00 Breakfast Lunch Supper 50% Temperature 98.2 F 98.0 F 12/12/19 12/12/19 12/12/19 06:50 09:16 10:00 Breakfast 50% Lunch Supper Temperature 97.9 F 98.2 F Laboratory Tests 12/08/19 12/09/19 12/12/19 07:35 07:50 07:10 WBC 15.5 H 13.4 H 14.1 H History Source: Family Member, Medical Record Limitations to Obtaining History: Clinical Condition - Past Medical History Cardiovascular: Yes: HTN, Hyperlipdemia Gastrointestinal: Yes: GERD Heme/Onc: Yes: Other (DVT and has been on chronic anticoagulation) Rheumatology: Yes: Rheumatoid Arthritis - Past Surgical History Past Surgical History: Yes: Cataract Removal, Laminectomy - Smoking History Smoking history: Never smoked Have you smoked in the past 12 months: No Aproximately how many cigarettes per day: 0 If you are a former smoker, when did you quit?: 50 years ago - Alcohol/Substance Use Hx Alcohol Use: No History of Substance Use: reports: None - Social History ADL: Independent 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 History of Recent Travel: No History - Admission Reason For Visit: INTRACTABLE PAIN,PAIN BOTH FEET,CELLULITIS,P - General Mental Status: Awake and Alert, Able to Follow Commands, Flat Affect Attention: Intact Head/Neck Control: Fair - Hearing Hearing: Functional Hearing: Normal Hearing Aide: No With Patient: No Speech Evaluation - Communication Primary Language: TONGAN Communication: Yes: Within Normal Limits Oral Expression Ability: Yes: No Impairment - Speech Production Able to Make Needs Known: Yes: WNL Intelligibility: Yes: WNL - Speech Characteristics Voice Loudness: Normal Voice Pitch: Yes: Normal Voice Phonatory-based Quality: Yes: Normal Speech Pattern: Normal Speech Clarity: < 100% Nasal Resonance: Normal Articulation: Yes: Precise Rate of Speech: Intact - Language/Auditory Comprehension Follows: Yes: 1 Stage Simple Commands - Language/Verbal Expression Able to Respond to Simple Queries: Yes: WNL Able to Communicate Wants and Needs: Yes: WNL Functional Communication Status: Yes: WNL - Swallow Evaluation/Bedside Assessment Current Nutritional Intake: Regular, Thin Liquids Oral Secretions: Yes: WFL Dentition: Yes: Adequate Facial Symmetry at Rest: Symmetrical Lingual Speed of Movement: Normal Lingual Movement Strgth Against Opposition: Normal Lingual Movement Characteristics: Normal Bolus Size: Small Labial Seal: WFL Oral Prep Time: WFL A-P Transit: WFL Timing of Swallow: WFL Coughing/Throat Clear: No Change in Voice: No Recommendations - Speech Evaluation, Impression/Plan Impression: Initially family reported chewing difficulty to staff. To me, they said all she wants is pain medication. He said she coughed with large pills. Poor appetite. Son just want comfort. Swallowed water and ice cream well. - Disposition Discharge to: Hospice, To be Determined - Dysphagia Impressions/Plan Dysphagia Impressions: Minimal Impairment *Silent aspiration: cannot be R/O at bedside - Recommendations Diet Consistency: Other (PO as tolerated and desired) Medication Administration: Crushed with applesauce (consider crushing larger pills, per entertainment agent's guidelines) Liquids: Thin Liquids
[2019-12-12] MEDS: HYDROmorphone HCl 2 MG/ML VIAL IVPB PRN ×2 (15:41→20:20)
--- NOTE | 2019-12-12 15:43 | PN ---
Progress Note (short form) - Note Progress Note: pain well controlled she is comfortable no sob afebrile day #5 vanco/cefepime/flagyl Vital Signs Period Temp Pulse Resp BP Sys/Ying Pulse Ox Last 24 Hr 97.9 F-98.2 F 70-82 18-20 96-135/50-72 95-97 cor-rrr lungs clear abd soft,nt ext feet are dry, +gangrene right foot, erythema much improved left stump is dry and necrotic CBC, BMP 12/12/19 07:10 12/12/19 07:10 Microbiology 12/06/19 13:40 Blood - Peripheral Venous Blood Culture - Final NO GROWTH AFTER 5 DAYS INCUBATION 12/06/19 13:35 Blood - Peripheral Venous Blood Culture - Final NO GROWTH AFTER 5 DAYS INCUBATION 12/06/19 15:00 Urine - Urine Clean Catch Urine Culture - Final Yeast Like Organism 12/02/19 17:00 Blood - Peripheral Venous Blood Culture - Final NO GROWTH AFTER 5 DAYS INCUBATION 12/02/19 17:00 Blood - Peripheral Venous Blood Culture - Final NO GROWTH AFTER 5 DAYS INCUBATION imp/reccd fevers resolved erythema improved day #5 antiibotics awaiting to hear about [facility] spirometer TMA infection/dehiscence- she has declined further surgery, [facility] 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
--- NOTE | 2019-12-12 15:46 | PN ---
Progress Note (short form) - Note Progress Note: Podiatry F/U: Seen/evaluated at bedside. Denies F/V/N/C/SOB/CP. Persistent pain to both feet, uncontrolled. Patient has wished palliative efforts regarding her feet, does not want to go through any further surgical intervention for gangrenous changes to the feet. Afebrile. DEB: vascular: pedal pulses nonpalpable, TG warm-cool, CFT absent to digits of the right foot. There are dry gangrenous changes to the right forefoot with mummification of all digits. There is no purulence, no fluctuance, no streaking cellulitis, no signs of active infection. Significant tenderness to palpation. There is dry gangrenous changes to sophy TMA stump, dehiscence of the transverse incision, underlying fibrotic wound base, dry, no purulence, no fluctuance, no streaking cellulitis, no signs of infection. Significant tenderness to palpation. Imp: 89 year old female with severe PVD, gangrene bilateral feet 1. Continue local wound care 2. Continue palliative efforts 3. Pain control 4. No podiatric intervention required at this time. Isac Loya DPM
[2019-12-12] MEDS: ATORVASTATIN CA 10 MG TABLET (FP) PO SCH (21:34)
[2019-12-13] MEDS: HYDROmorphone HCl 2 MG/ML VIAL IVPB PRN ×2 (05:16→16:36)
[2019-12-13] MEDS: GABAPENTIN 100 MG CAPSULE PO SCH ×3 (05:16→23:52)
[2019-12-13 08:11] LABS: BASO % 0.9 % (0-2.0); EOS % 0.9 % (0-4.5); HEMATOCRIT 26.2 % (32.4-45.2); HEMOGLOBIN 8.3 GM/dL (10.7-15.3); LYMPH % 18.9 % (8-40); MCH 27.5 pg (25.7-33.7); MCHC 31.7 g/dl (32.0-36.0); MEAN CELL VOLUME 86.7 fl (80-96); MEAN PLT VOLUME 7.7 fl (7.5-11.1); MONO % 8.4 % (3.8-10.2); NEUT % 70.9 % (42.8-82.8); PLATELET COUNT 447 K/MM3 (134-434); RBC 3.03 M/mm3 (3.60-5.2); RDW 16.7 % (11.6-15.6)
[2019-12-13] MEDS: ACETAMINOPHEN 325 MG TABLET (FP) PO PRN ×2 (08:16→14:37)
[2019-12-13] MEDS: oxyCODONE HCL 5 MG TABLET PO PRN ×2 (08:16→14:37)
[2019-12-13] MEDS: AMINO ACIDS/PROTEIN HYDROLYS 30 ML LIQUID.PKT PO SCH ×2 (08:16→17:05)
[2019-12-13 08:34] LABS: BLOOD UREA NITROGEN 15.7 mg/dL (7-18); CALCIUM 8.6 mg/dL (8.5-10.1); CREATININE 0.3 mg/dL (0.55-1.3); POTASSIUM 3.8 mmol/L (3.5-5.1)
[2019-12-13] MEDS ORDERED: ESCITALOPRAM OXALATE 10 MG TABLET ONE (09:49)
[2019-12-13] MEDS ORDERED: PT OWN MED DRAWER 7, Y5N ONE (09:51)
[2019-12-13] MEDS: VALSARTAN 160 MG TABLET (UD) PO SCH (09:57)
[2019-12-13] MEDS: SODIUM CHLORIDE 1 GM TABLET PO SCH (09:57)
[2019-12-13] MEDS: PANTOPRAZOLE 40 MG TABLET PO SCH (09:57)
[2019-12-13] MEDS: ESCITALOPRAM OXALATE 20 MG TABLET PO SCH (09:57)
[2019-12-13] MEDS: POLYETHYLENE GLYCOL 3350 119 GM BTL PO SCH (09:58)
[2019-12-13] MEDS: APIXABAN 2.5 MG TABLET PO SCH ×2 (09:58→23:52)
[2019-12-13] MEDS: predniSONE 5 MG TABLET (UD) PO SCH (09:58)
[2019-12-13] MEDS: oxyCODONE HCL 10 MG SUSTAINED ACTING TABLET PO SCH ×2 (09:58→23:53)
[2019-12-13] MEDS: TERIPARATIDE SQ SCH (10:00)
--- NOTE | 2019-12-13 10:11 | PN ---
Teaching Attending Note Name of Resident: Antwan Lynn ATTENDING PHYSICIAN STATEMENT I saw and evaluated the patient. I reviewed the resident's note and discussed the case with the resident. I agree with the resident's findings and plan as documented. SUBJECTIVE: OBJECTIVE: Vital Signs Temperature 97.3 F L 12/13/19 09:56 Pulse Rate 97 H 12/13/19 09:56 Respiratory Rate 18 12/13/19 09:56 Blood Pressure 111/54 L 12/13/19 09:56 O2 Sat by Pulse Oximetry (%) 96 12/12/19 21:00 General: Elderly female, comfortable, not in distress HEENT; mucous membranes moist, no anemia, no jaundice, PERRLA, no nystagmus Neck: No JVD, supple, no bruit, thyroid palpably normal, normal carotid pulsations. Chest: Nontender, clear to auscultation bilaterally CVS: S1-S2 regular no murmur/gallop/rub Abdomen: Nondistended, soft, bowel sounds present. 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 sensory deficit CBC, BMP 12/13/19 06:30 12/13/19 06:30 Active Medications Acetaminophen (Tylenol -) 650 mg PO Q6H PRN PRN Reason: PAIN LEVEL 1-3 Last Admin: 12/13/19 08:16 Dose: 650 mg Amino Acids (Prosource No Carb Liquid Pkt) 30 ml PO BID@0800,1730 [facility] Last Admin: 12/13/19 08:16 Dose: 30 ml Apixaban (Eliquis -) 2.5 mg PO BID [facility] Last Admin: 12/13/19 09:58 Dose: 2.5 mg Atorvastatin Calcium (Lipitor -) 10 mg PO HS [facility] Last Admin: 12/12/19 21:34 Dose: 10 mg Diltiazem HCl (Cardizem Cd -) 180 mg PO DAILY [facility] Last Admin: 12/13/19 09:57 Dose: 180 mg Escitalopram Oxalate (Lexapro -) 20 mg PO DAILY [facility] Last Admin: 12/13/19 09:57 Dose: 20 mg Gabapentin (Neurontin -) 100 mg PO TID [facility] Last Admin: 12/13/19 05:16 Dose: Not Given Hydromorphone HCl (Dilaudid Vial -) 2 mg IVPB Q4H PRN PRN Reason: PAIN LEVEL 7 - 10 Last Admin: 12/13/19 05:16 Dose: 2 mg Cefepime HCl 1 gm/ Dextrose 100 mls @ 200 mls/hr IVPB BID [facility]; Protocol Last Admin: 12/12/19 21:18 Dose: 200 mls/hr Metronidazole (Flagyl 500mg Premixed Ivpb -) 500 mg in 100 mls @ 100 mls/hr IVPB Q8H-IV [facility] Last Admin: 12/13/19 09:58 Dose: 100 mls/hr Vancomycin HCl 750 mg/ (Dextrose) 250 mls @ 250 mls/hr IVPB Q12H [facility]; Protocol Last Admin: 12/12/19 23:40 Dose: 250 mls/hr Metoprolol Succinate (Toprol Xl -) 50 mg PO HS [facility] Last Admin: 12/12/19 23:40 Dose: Not Given Non-Formulary Medication (Teriparatide [Forteo]) 0.08 ml SQ DAILY [facility] Last Admin: 12/13/19 10:00 Dose: 0.08 ml Oxycodone HCl (Oxycontin -) 10 mg PO BID [facility] Last Admin: 12/13/19 09:58 Dose: 10 mg Oxycodone HCl (Roxicodone -) 10 mg PO Q4H PRN PRN Reason: PAIN LEVEL 4 - 6 Last Admin: 12/13/19 08:16 Dose: 10 mg Pantoprazole Sodium (Protonix -) 40 mg PO DAILY [facility] Last Admin: 12/13/19 09:57 Dose: 40 mg Polyethylene Glycol (Miralax (For Daily Use) -) 17 gm PO DAILY [facility] Last Admin: 12/13/19 09:58 Dose: Not Given Prednisone (Deltasone -) 2.5 mg PO DAILY [facility] Last Admin: 12/13/19 09:58 Dose: 2.5 mg Sodium Chloride (Sodium Chloride Tablet -) 1 gm PO DAILY [facility] Last Admin: 12/13/19 09:57 Dose: 1 gm Valsartan (Diovan -) 160 mg PO DAILY [facility] Last Admin: 12/13/19 09:57 Dose: 160 mg ASSESSMENT AND PLAN:89 F h/o HTN, GERD, HLD, DVT on chronic AC (eliquis), severe PVD s/p LLE angioplasty, s/p Lt TMA on 11/03 presenting with b/l leg pain. Pt is in severe sharp pain worse in the RLE, associated with warmth and redness. R foot gangrene and L foot severe PAD requiring L BKA. Family wishing not to undergo any invasive procedures. Plan: Patient will complete antibiotic antibiotic today, possible transfer to [facility] tomorrow. Problem List - Problems (1) Cellulitis Assessment/Plan: On PAD ulcers, currently on cefepime and vancomycin, patient opted for hospice care , discussed with ID recommended antibiotic for 1 more day. Code(s): L03.90 - CELLULITIS, UNSPECIFIED Qualifiers: Site of cellulitis: extremity Site of cellulitis of extremity: lower extremity Laterality: right Qualified Code(s): L03.115 - Cellulitis of right lower limb (2) PVD (peripheral vascular disease) Code(s): I73.9 - PERIPHERAL VASCULAR DISEASE, UNSPECIFIED (3) Ischemic pain of left foot Assessment/Plan: due to peripheral artery disease underwent angiogram and evaluation by vascular surgery patient opted for no intervention palliative care continue wound care Code(s): M79.672 - PAIN IN LEFT FOOT; I99.9 - UNSPECIFIED DISORDER OF CIRCULATORY SYSTEM (4) Afib Assessment/Plan: On anticoagulation rate controlled Code(s): I48.91 - UNSPECIFIED ATRIAL FIBRILLATION Qualifiers: Atrial fibrillation type: chronic (5) HTN (hypertension) Code(s): I10 - ESSENTIAL (PRIMARY) HYPERTENSION Qualifiers: Hypertension type: essential hypertension Qualified Code(s): I10 - Essential (primary) hypertension (6) Type 2 diabetes mellitus with foot ulcer Assessment/Plan: Optimize glycemic control Code(s): E11.621 - TYPE 2 DIABETES MELLITUS WITH FOOT ULCER; L97.509 - NON- PRESSURE CHRONIC ULCER OTH PRT UNSP FOOT W UNSP SEVERITY Qualifiers: Diabetes mellitus usp insulin use: without usp use Qualified Code(s): E11.621 - Type 2 diabetes mellitus with foot ulcer; L97.509 - Non- pressure chronic ulcer of other part of unspecified foot with unspecified severity
[2019-12-13] MEDS ORDERED: CEFEPIME HCL 1 GM VIAL (RESTRICTED TO ID) ONE ×2 (11:19→23:49)
[2019-12-13] MEDS ORDERED: DEXTROSE 5%-WATER 100 ML IVPB ONE ×2 (11:19→23:49)
[2019-12-13] MEDS: CEFEPIME 1 GM in DEXTROSE 5%-WATER 100 ML IVPB SCH ×2 (11:21→23:52)
[2019-12-13] MEDS: VANCOMYCIN 750 MG in DEXTROSE 5%-WATER - 250 ML IVPB SCH (12:44)
--- NOTE | 2019-12-13 13:57 | PN ---
Physical Exam: SUBJECTIVE: Patient seen and examined at bed side , had fever over night , POD#9 , seems comfortable in bed but still in pain breathing is fine cont incentive spirometry family denies any surgery for now signs DNR/DNI pending placement to [facility] to decide abx one more day of abx nystatin cream apply under breast OBJECTIVE: Vital Signs Period Temp Pulse Resp BP Sys/Ying Pulse Ox Last 24 Hr 97.3 F-98.4 F 76-97 18-20 95-128/46-66 96 GENERAL: awake alert in mild distress HEAD: NC/AT EYES: EOMI, Conjunctiva clear, sclera anicteric ENT: dry mucous membrane NECK: Supple, no JVD LUNGS:decrease breath sounds at the bases HEART: RRR, NSR, normal s1, s2, 4/6 systolic murmur ABDOMEN: Soft, ND, NT, +BS 4 Q, no CVA Tenderness LOWER EXTREMITIES: no edema, ,Gangrene of toes, 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 Left TMA wound open with gangrene of lateral foot and heel. less tender less warm NEUROLOGICAL: No focal deficit. Normal speech. gait not observed. PSYCHIATRIC: Cooperative. Good eye contact. SKIN: Warm, dry, Laboratory Results - last 24 hr 12/13/19 12/13/19 06:30 06:30 WBC 14.0 H RBC 3.03 L Hgb 8.3 L Hct 26.2 L MCV 86.7 MCH 27.5 MCHC 31.7 L RDW 16.7 H Plt Count 447 H MPV 7.7 Absolute Neuts (auto) 9.9 H Neutrophils % 70.9 Lymphocytes % 18.9 Monocytes % 8.4 Eosinophils % 0.9 Basophils % 0.9 Nucleated RBC % 0 Sodium 135 L Potassium 3.8 Chloride 98 Carbon Dioxide 34 H Anion Gap 4 L BUN 15.7 Creatinine 0.3 L Est GFR (CKD-EPI)AfAm 117.65 Est GFR (CKD-EPI)NonAf 101.51 Random Glucose 85 Calcium 8.6 Active Medications Generic Name Dose Route Start Last Admin Trade Name Freq PRN Reason Stop Dose Admin Acetaminophen 650 mg 12/05/19 16:06 12/13/19 08:16 Tylenol - PO 650 mg Q6H PRN Administration PAIN LEVEL 1-3 Amino Acids 30 ml 12/05/19 17:30 12/13/19 08:16 Prosource No Carb Liquid Pkt PO 30 ml BID@0800,1730 [facility] Administration Apixaban 2.5 mg 12/05/19 22:00 12/13/19 09:58 Eliquis - PO 2.5 mg BID COLBY Administration Atorvastatin Calcium 10 mg 12/05/19 22:00 12/12/19 21:34 Lipitor - PO 10 mg HS COLBY Administration Diltiazem HCl 180 mg 12/06/19 10:00 12/13/19 09:57 Cardizem Cd - PO 180 mg DAILY [facility] Administration Escitalopram Oxalate 20 mg 12/06/19 10:00 12/13/19 09:57 Lexapro - PO 20 mg DAILY [facility] Administration Gabapentin 200 mg 12/13/19 14:00 Neurontin - PO TID COLBY Hydromorphone HCl 2 mg 12/09/19 10:05 12/13/19 05:16 Dilaudid Vial - IVPB 2 mg Q4H PRN Administration PAIN LEVEL 7 - 10 Cefepime HCl 1 gm/ Dextrose 100 mls @ 200 mls/hr 12/07/19 22:00 12/13/19 11: 21 IVPB 200 mls/hr BID COLBY Administration Protocol Metronidazole 500 mg in 100 mls @ 100 mls/hr 12/07/19 18:00 12/13/19 09:58 Flagyl 500mg Premixed Ivpb - IVPB 100 mls/hr Q8H-IV COLBY Administration Vancomycin HCl 750 mg/ 250 mls @ 250 mls/hr 12/11/19 12:00 12/13/19 12:44 Dextrose IVPB 250 mls/hr Q12H COLBY Administration Protocol Metoprolol Succinate 50 mg 12/05/19 22:00 12/12/19 23:40 Toprol Xl - PO Not Given HS COLBY Non-Formulary Medication 0.08 ml 12/06/19 10:00 12/13/19 10:00 Teriparatide [Forteo] SQ 0.08 ml DAILY [facility] Administration Nystatin 1 applic 12/13/19 22:00 Mycostatin Cream - TP BID COLBY Oxycodone HCl 10 mg 12/07/19 22:00 12/13/19 09:58 Oxycontin - PO 10 mg BID COLBY Administration Oxycodone HCl 10 mg 12/09/19 10:04 02/19/20 08:16 Roxicodone - PO 10 mg Q4H PRN Administration PAIN LEVEL 4 - 6 Pantoprazole Sodium 40 mg 12/06/19 10:00 12/13/19 09:57 Protonix - PO 40 mg DAILY [facility] Administration Polyethylene Glycol 17 gm 12/05/19 19:45 12/13/19 09:58 Miralax (For Daily Use) - PO Not Given DAILY [facility]BY Prednisone 2.5 mg 12/06/19 10:00 12/13/19 09:58 Deltasone - PO 2.5 mg DAILY [facility] Administration Sodium Chloride 1 gm 12/06/19 10:00 12/13/19 09:57 Sodium Chloride Tablet - PO 1 gm DAILY [facility] Administration Valsartan 160 mg 12/06/19 10:00 12/13/19 09:57 Diovan - PO 160 mg DAILY COLBY Administration CBC, BMP 12/13/19 06:30 12/13/19 06:30 ASSESSMENT/PLAN: 89 y/o F with a PMHx of HTN, GERD, HLD, DVT on chronic AC (eliquis), severe PVD s/p LLE angioplasty, s/p Lt TMA on 11/03 presenting with b/l leg pain. Pt is in severe sharp pain worse in the RLE, associated with warmth and redness. Pt's son at bedside providing most of the history. #PAD with recent left TMA 11/03, now with dehiscence and infection of surgical wound, gangrene of both feet * had an angiogram today with disease limited to right foot , BKA offer for family and will be decided, vascualr on board * cont eliquis and lipitor * pain control with dilauded and oxycodone and kade pentin * resume diet * Angiogram reviewed * abx per ID increase vanco to 1 gm daily and start cefipime /flagyl #Sepsis 2/2 foot gangreen /cellulitis * cont abx vanc start cefepim and flagyl * vanco trough , increase vanco to 1gm daily * IV fluids dc due to cxr congestion * blood cx negative cont to follow * held methotrexat due to infection * had fever yesteday and blood cx re send # SOB due to volume over loaded r.o PNA * DC fludis * 20 lasix IV push once * sat 95 % on 2 l NC * cont abx #Paroxysmal A. fibwith RVR #HTN * cont diovan * NSR for now * cont cardizim, toprol and eliquis #Normocytic Anemia, chronic , monitor H/H daily , * normal transfusion threshold below 8 * likely due to chronic disease #HLD Cont lipitor # Hypoglycemia :resolved resume diet # Hypokalemia replinished 20 pO potassium # constipation likely due to immobility and pain medication , can start on Miralax 17 mg daily # malnourished : high protein diet BMI 18.6 # H/O DVT #RA * continue 2.5 prednisone and hold methotrexate due to infection #GERD * Continue protonix #Parkinsonism * Continue with home dose Sinemet # Sever protien calorie malnutrition , evidenced by moderate subcutaneous fat loss around orbital and upper arm regions , moderate muscle loss around temporal and calvicular regions clinical indicators BMI 18.6,WT 105 LB, average intake less than nutritional needs ALB 2.8-2.1 total loss protien drop from 6.0- 4.9 risk factors wound healing advance age , chronic illness will start Magic cup prosurce BID # FEN * no standing fluids * Monitor lytes * NS controlled diabetic diet # proph : * DVT on ELiquis 2.5 BID * GI on PPI # Dispo : M/S familyd denies BKA pending placemnet to [facility] Visit type - Emergency Visit Emergency Visit: Yes ED Registration Date: 12/01/19 Care time: The patient presented to the Emergency Department on the above date and was hospitalized for further evaluation of their emergent condition. - New Patient This patient is new to me today: No - Critical Care Critical Care patient: No ATTENDING PHYSICIAN STATEMENT I saw and evaluated the patient. I reviewed the resident's note and discussed the case with the resident. I agree with the resident's findings and plan as documented. SUBJECTIVE: OBJECTIVE: ASSESSMENT AND PLAN:
--- NOTE | 2019-12-13 16:16 | PN ---
Progress Note (short form) - Note Progress Note: pain well controlled she is comfortable no sob afebrile Vital Signs Period Temp Pulse Resp BP Sys/Ying Pulse Ox Last 24 Hr 97.3 F-98.4 F 76-97 18-20 95-128/46-66 96-96 cor-rrr lungs clear abd soft,nt ext dressings intact CBC, BMP 12/13/19 06:30 12/13/19 06:30 imp/reccd fevers resolved cellulitis resolved d/c antibiotics in ma incentive spirometer TMA infection/dehiscence- she has declined further surgery, [facility] referral planned please call back in am
[2019-12-13] MEDS ORDERED: NYSTATIN 100,000 UNIT/GM TOPICAL CREAM 15 GM TUBE TP SCH (22:00)
[2019-12-13] MEDS: ATORVASTATIN CA 10 MG TABLET (FP) PO SCH (23:52)
[2019-12-14] MEDS ORDERED: PT OWN MED DRAWER 7, Y5N ONE ×2 (01:14→10:38)
[2019-12-14] MEDS: VANCOMYCIN 750 MG in DEXTROSE 5%-WATER - 250 ML IVPB SCH (01:24)
[2019-12-14] MEDS: GABAPENTIN 100 MG CAPSULE PO SCH (06:28)
[2019-12-14 07:36] LABS: EOS % 0.5 % (0-4.5); HEMATOCRIT 27.9 % (32.4-45.2); LYMPH % 16.5 % (8-40); MCH 27.6 pg (25.7-33.7); MCHC 32.1 g/dl (32.0-36.0); MEAN PLT VOLUME 7.5 fl (7.5-11.1); MONO % 8.3 % (3.8-10.2); NEUT % 73.7 % (42.8-82.8); PLATELET COUNT 532 K/MM3 (134-434); RBC 3.25 M/mm3 (3.60-5.2); RDW 17.4 % (11.6-15.6); WHITE BLOOD COUNT 14.6 K/mm3 (4.0-10.0)
[2019-12-14 08:15] LABS: ALBUMIN 1.8 g/dl (3.4-5.0); BILIRUBIN,TOTAL 0.2 mg/dL (0.2-1); BLOOD UREA NITROGEN 16.7 mg/dL (7-18); CALCIUM 8.4 mg/dL (8.5-10.1); CREATININE 0.3 mg/dL (0.55-1.3); TOT PROT 4.5 g/dl (6.4-8.2)
--- NOTE | 2019-12-14 09:26 | PN ---
Teaching Attending Note Name of Resident: Antwan Lynn ATTENDING PHYSICIAN STATEMENT I saw and evaluated the patient. I reviewed the resident's note and discussed the case with the resident. I agree with the resident's findings and plan as documented. SUBJECTIVE: remained at her base line OBJECTIVE: Vital Signs Temperature 98.9 F 12/14/19 06:35 Pulse Rate 94 H 12/14/19 06:35 Respiratory Rate 20 12/14/19 06:35 Blood Pressure 135/62 12/14/19 06:35 O2 Sat by Pulse Oximetry (%) 96 12/13/19 21:00 General: Elderly female, comfortable, not in distress HEENT; mucous membranes moist, no anemia, no jaundice, PERRLA, no nystagmus Neck: No JVD, supple, no bruit, thyroid palpably normal, normal carotid pulsations. Chest: Nontender, clear to auscultation bilaterally CVS: S1-S2 regular no murmur/gallop/rub Abdomen: Nondistended, soft, bowel sounds present. 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 , no gross motor sensory deficit CBC, BMP 12/14/19 06:35 12/14/19 06:35 Active Medications Acetaminophen (Tylenol -) 650 mg PO Q6H PRN PRN Reason: PAIN LEVEL 1-3 Last Admin: 12/13/19 14:37 Dose: 650 mg Amino Acids (Prosource No Carb Liquid Pkt) 30 ml PO BID@0800,1730 [facility] Last Admin: 12/13/19 17:05 Dose: 30 ml Apixaban (Eliquis -) 2.5 mg PO BID [facility] Last Admin: 12/13/19 23:52 Dose: 2.5 mg Atorvastatin Calcium (Lipitor -) 10 mg PO HS [facility] Last Admin: 12/13/19 23:52 Dose: 10 mg Diltiazem HCl (Cardizem Cd -) 180 mg PO DAILY [facility] Last Admin: 12/13/19 09:57 Dose: 180 mg Escitalopram Oxalate (Lexapro -) 20 mg PO DAILY [facility] Last Admin: 12/13/19 09:57 Dose: 20 mg Gabapentin (Neurontin -) 200 mg PO TID [facility] Last Admin: 12/14/19 06:28 Dose: 200 mg Hydromorphone HCl (Dilaudid Vial -) 2 mg IVPB Q4H PRN PRN Reason: PAIN LEVEL 7 - 10 Last Admin: 12/13/19 16:36 Dose: 2 mg Cefepime HCl 1 gm/ Dextrose 100 mls @ 200 mls/hr IVPB BID [facility]; Protocol Last Admin: 12/13/19 23:52 Dose: 200 mls/hr Metronidazole (Flagyl 500mg Premixed Ivpb -) 500 mg in 100 mls @ 100 mls/hr IVPB Q8H-IV [facility] Last Admin: 12/14/19 01:25 Dose: 100 mls/hr Vancomycin HCl 750 mg/ (Dextrose) 250 mls @ 250 mls/hr IVPB Q12H [facility]; Protocol Last Admin: 12/14/19 01:24 Dose: 250 mls/hr Metoprolol Succinate (Toprol Xl -) 50 mg PO HS [facility] Last Admin: 12/13/19 23:52 Dose: 50 mg Non-Formulary Medication (Teriparatide [Forteo]) 0.08 ml SQ DAILY [facility] Last Admin: 12/13/19 10:00 Dose: 0.08 ml Nystatin (Mycostatin Cream -) 1 applic TP BID [facility] Last Admin: 12/13/19 23:53 Dose: 1 applic Oxycodone HCl (Oxycontin -) 10 mg PO BID [facility] Last Admin: 12/13/19 23:53 Dose: 10 mg Oxycodone HCl (Roxicodone -) 10 mg PO Q4H PRN PRN Reason: PAIN LEVEL 4 - 6 Last Admin: 12/13/19 14:37 Dose: 10 mg Pantoprazole Sodium (Protonix -) 40 mg PO DAILY [facility] Last Admin: 12/13/19 09:57 Dose: 40 mg Polyethylene Glycol (Miralax (For Daily Use) -) 17 gm PO DAILY [facility] Last Admin: 12/13/19 09:58 Dose: Not Given Prednisone (Deltasone -) 2.5 mg PO DAILY [facility] Last Admin: 12/13/19 09:58 Dose: 2.5 mg Sodium Chloride (Sodium Chloride Tablet -) 1 gm PO DAILY [facility] Last Admin: 12/13/19 09:57 Dose: 1 gm Valsartan (Diovan -) 160 mg PO DAILY [facility] Last Admin: 12/13/19 09:57 Dose: 160 mg ASSESSMENT AND PLAN: Problem List - Problems (1) Cellulitis Code(s): L03.90 - CELLULITIS, UNSPECIFIED Qualifiers: Site of cellulitis: extremity Site of cellulitis of extremity: lower extremity Laterality: right Qualified Code(s): L03.115 - Cellulitis of right lower limb (2) PVD (peripheral vascular disease) Code(s): I73.9 - PERIPHERAL VASCULAR DISEASE, UNSPECIFIED (3) Ischemic pain of left foot Code(s): M79.672 - PAIN IN LEFT FOOT; I99.9 - UNSPECIFIED DISORDER OF CIRCULATORY SYSTEM (4) Afib Code(s): I48.91 - UNSPECIFIED ATRIAL FIBRILLATION Qualifiers: Atrial fibrillation type: chronic (5) HTN (hypertension) Code(s): I10 - ESSENTIAL (PRIMARY) HYPERTENSION Qualifiers: Hypertension type: essential hypertension Qualified Code(s): I10 - Essential (primary) hypertension (6) Type 2 diabetes mellitus with foot ulcer Code(s): E11.621 - TYPE 2 DIABETES MELLITUS WITH FOOT ULCER; L97.509 - NON- PRESSURE CHRONIC ULCER OTH PRT UNSP FOOT W UNSP SEVERITY Qualifiers: Diabetes mellitus pediatric dietician insulin use: without chcf use Qualified Code(s): E11.621 - Type 2 diabetes mellitus with foot ulcer; L97.509 - Non- pressure chronic ulcer of other part of unspecified foot with unspecified severity
--- NOTE | 2019-12-14 09:57 | DS ---
Physical Exam: SUBJECTIVE: Patient seen and examined at bed side , no acute events over nigt , pain controlled , pt to be dc to [place] for hospice care family denies any BKA or invasive procedure OBJECTIVE: Vital Signs Period Temp Pulse Resp BP Sys/Ying Pulse Ox Last 24 Hr 98 F-98.9 F 75-94 18-20 102-135/46-62 96 PHYSICAL EXAM GENERAL: awake alert in mild distress HEAD: NC/AT EYES: EOMI, Conjunctiva clear, sclera anicteric ENT: dry mucous membrane NECK: Supple, no JVD LUNGS:decrease breath sounds at the bases HEART: RRR, NSR, normal s1, s2, 4/6 systolic murmur ABDOMEN: Soft, ND, NT, +BS 4 Q, no CVA Tenderness LOWER EXTREMITIES: no edema, ,Gangrene of toes, 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 Left TMA wound open with gangrene of lateral foot and heel. less tender less warm NEUROLOGICAL: No focal deficit. Normal speech. gait not observed. PSYCHIATRIC: Cooperative. Good eye contact. SKIN: Warm, dry, LABS Laboratory Results - last 24 hr 12/14/19 12/14/19 06:35 06:35 WBC 14.6 H RBC 3.25 L Hgb 9.0 L Hct 27.9 L MCV 86.0 MCH 27.6 MCHC 32.1 RDW 17.4 H Plt Count 532 H MPV 7.5 Absolute Neuts (auto) 10.8 H Neutrophils % 73.7 Lymphocytes % 16.5 Monocytes % 8.3 Eosinophils % 0.5 Basophils % 1.0 Nucleated RBC % 0 Sodium 133 L Potassium 4.0 Chloride 97 L Carbon Dioxide 32 Anion Gap 5 L BUN 16.7 Creatinine 0.3 L Est GFR (CKD-EPI)AfAm 117.65 Est GFR (CKD-EPI)NonAf 101.51 Random Glucose 92 Calcium 8.4 L Total Bilirubin 0.2 AST 12 L ALT 10 L Alkaline Phosphatase 95 Total Protein 4.5 L Albumin 1.8 L CBC, [facility] 12/14/19 06:35 12/14/19 06:35 HOSPITAL COURSE: Date of Admission:12/01/19 Date of Discharge: 12/14/19 89 y/o F with a PMHx of HTN, GERD, HLD, DVT on chronic AC (eliquis), severe PVD s/p LLE angioplasty, s/p Lt TMA on 11/03 presenting with b/l leg pain. Pt is in severe sharp pain worse in the RLE, associated with warmth and redness. Pt's son at bedside providing most of the history. #PAD with recent left TMA 11/03, now with dehiscence and infection of surgical wound, gangrene of right feet * had an angiogram today with disease limited to right foot , BKA offer for family and will be decided, vascualr on board * cont eliquis and lipitor * pain control with dilauded and oxycodone, oxycontine and gabapentin * resume diet * abx per ID increase vanco to 1 gm daily and start cefipime /flagyl #Sepsis 2/2 foot gangreen /cellulitis , improved * conmplete abx * blood cx negative cont to follow * held methotrexat due to infection # SOB due to volume over loaded r.o PNA , resolved * DC fludis * 20 lasix IV push once as needed if over loaded * sat 95 % on 2 l NC * complete abx #Paroxysmal A. fibwith RVR #HTN * cont diovan * NSR for now * cont cardizim, toprol and eliquis #Normocytic Anemia, chronic , monitor H/H daily , * normal transfusion threshold below 8 * likely due to chronic disease #HLD Cont lipitor # Hypoglycemia :resolved resume diet # Hypokalemia replinished 20 pO potassium # constipation likely due to immobility and pain medication , can start on Miralax 17 mg daily # malnourished : high protein diet BMI 18.6 # H/O DVT #RA * continue 2.5 prednisone and hold methotrexate due to infection #GERD * Continue protonix #Parkinsonism * Continue with home dose Sinemet # Sever protien calorie malnutrition , evidenced by moderate subcutaneous fat loss around orbital and upper arm regions , moderate muscle loss around temporal and calvicular regions clinical indicators BMI 18.6,WT 105 LB, average intake less than nutritional needs ALB 2.8-2.1 total loss protien drop from 6.0- 4.9 risk factors wound healing advance age , chronic illness will start Magic cup prosurce BID # FEN * no standing fluids * Monitor lytes * NS controlled diabetic diet soft diet # proph : * DVT on ELiquis 2.5 BID * GI on PPI # Dispo : M/S familyd denies BKA pending placemnet to [facility] Minutes to complete discharge: 50 Discharge Summary Problems reviewed: Yes Reason For Visit: INTRACTABLE PAIN,PAIN BOTH FEET,CELLULITIS,P Current Active Problems Afib (Chronic) Foot pain, bilateral (Chronic) GERD (gastroesophageal reflux disease) (Chronic) HTN (hypertension) (Chronic) Intractable pain (Chronic) PVD (peripheral vascular disease) (Chronic) Condition: Guarded - Instructions Diet, Activity, Other Instructions: you presented to the hospital due to sever leg pain , you were found to have gangreene in right foot , treated with antibiotics and pain medication, surgery was denies by family you will be send to [facility] please take pain medication as prescribed please resume other home medication as before admission hold methotrexat Referrals: Guillaume Hernandez MD [Primary Care Provider] - 1 Week Disposition: CARE HOME FACILITY - Home Medications Comprehensive Discharge Medication List: Ambulatory Orders Pantoprazole Sodium [Protonix -] 40 mg PO DAILY 03/06/14 Methotrexate [Mexate -] 7 tab PO Q7D 09/22/17 Teriparatide [Forteo] 0.8 ml SQ DAILY 09/14/19 Valsartan [Diovan] 160 mg PO DAILY tablet 09/26/19 Diltiazem HCl [Cartia Xt] 180 mg PO DAILY 10/31/19 Gabapentin [Neurontin -] 1 cap PO TID 10/31/19 Escitalopram Oxalate [Lexapro -] 1 tab PO DAILY 11/01/19 Metoprolol Succinate [Toprol Xl] 1 tab PO HS 11/01/19 predniSONE [Deltasone -] 2.5 mg PO DAILY 11/01/19 Acetaminophen [Acetaminophen ER] 650 mg PO Q6H 30 Days #120 tablet.er 11/06/19 Atorvastatin Ca [Lipitor] 10 mg PO HS 30 Days #30 tablet 11/06/19 Sodium Chloride Tablet - 1 gm PO DAILY 14 Days #14 tablet 11/06/19 Apixaban [Eliquis -] 2.5 mg PO BID 12/02/19 Amino Acids/Protein Hydrolys [Prosource No Carb Liquid Pkt] 30 ml PO BID@0800, 1730 packet 12/14/19 HYDROmorphone VIAL [Dilaudid Vial -] 2 mg IVPB Q4H PRN ml MDD 6 12/14/19 Nystatin Cream [Mycostatin Cream -] 1 applic TP BID applic 12/14/19 Polyethylene Glycol 3350 [Miralax 119 gm Btl -] 17 gm PO DAILY bottle 12/14/19 oxyCODONE HCL [Roxicodone -] 10 mg PO Q4H PRN tablet MDD 6 12/14/19 oxyCODONE SR [Oxycontin] 10 mg PO BID tab.er.12h MDD 3 12/14/19 This patient is new to me today: No Emergency Visit: Yes ED Registration Date: 12/01/19 Care time: The patient presented to the Emergency Department on the above date and was hospitalized for further evaluation of their emergent condition. Critical Care patient: No - Discharge Referral Referred to [facility] Med P.C.: No ATTENDING PHYSICIAN STATEMENT I saw and evaluated the patient. I reviewed the resident's note and discussed the case with the resident. I agree with the resident's findings and plan as documented. SUBJECTIVE: OBJECTIVE: ASSESSMENT AND PLAN:
[2019-12-14] MEDS ORDERED: ESCITALOPRAM OXALATE 10 MG TABLET ONE (10:37)
[2019-12-14] MEDS: predniSONE 5 MG TABLET (UD) PO SCH (10:39)
[2019-12-14] MEDS: VALSARTAN 160 MG TABLET (UD) PO SCH (10:40)
[2019-12-14] MEDS: APIXABAN 2.5 MG TABLET PO SCH (10:40)
[2019-12-14] MEDS: oxyCODONE HCL 10 MG SUSTAINED ACTING TABLET PO SCH (10:40)
[2019-12-14] MEDS: PANTOPRAZOLE 40 MG TABLET PO SCH (10:40)
[2019-12-14] MEDS: POLYETHYLENE GLYCOL 3350 119 GM BTL PO SCH (10:41)
[2019-12-14] MEDS: ESCITALOPRAM OXALATE 20 MG TABLET PO SCH (10:41)
[2019-12-14 11:18] VITALS: BP 120/59; PULSE 89; TEMP 98.3
== END 2019-12-14 11:52 | DRG 862 ==
LOC: JER 16:50 → JERBED 19:16 → J5S 12-02 15:19 → J8W 12-05 20:45
PROVIDERS: ADMIT Internal Medicine; ATTEND Internal Medicine
PROC: B50DYZZ Plain Radiography of Bilateral Lower Extremity Veins using Other Contrast (ICD-10-PCS; 2019-12-05)
PROC: B40DYZZ Plain Radiography of Aorta and Bilateral Lower Extremity Arteries using Other Contrast (ICD-10-PCS; principal; 2019-12-05 13:30)
DX: T81.44XA Sepsis following a procedure, initial encounter (principal); A41.89 Other specified sepsis; E43 Unspecified severe protein-calorie malnutrition; L03.115 Cellulitis of right lower limb; Z68.1 Body mass index [BMI] 19.9 or less, adult; T81.30XA Disruption of wound, unspecified, initial encounter; I82.5Z9 Chronic embolism and thrombosis of unspecified deep veins of unspecified distal lower extremity; I96 Gangrene, not elsewhere classified; D72.829 Elevated white blood cell count, unspecified; I48.0 Paroxysmal atrial fibrillation; E78.5 Hyperlipidemia, unspecified; I10 Essential (primary) hypertension; D63.8 Anemia in other chronic diseases classified elsewhere; M06.9 Rheumatoid arthritis, unspecified; K21.9 Gastro-esophageal reflux disease without esophagitis; Y83.8 Other surgical procedures as the cause of abnormal reaction of the patient, or of later complication, without mention of misadventure at the time of the procedure; R62.7 Adult failure to thrive; I73.89 Other specified peripheral vascular diseases; E88.09 Other disorders of plasma-protein metabolism, not elsewhere classified; E86.0 Dehydration; G20 Parkinson's disease; Z89.431 Acquired absence of right foot; E87.6 Hypokalemia; K59.09 Other constipation; E16.2 Hypoglycemia, unspecified; R50.9 Fever, unspecified; Z66 Do not resuscitate
CPT/HCPCS: 36415; 71045-TC-FY; 76000-TC-FY; 80048; 80053; 83540; 83550; 83605; 83735; 84100; 85025; 85027; 85610; 85730; 86850; 86900; 86901; 87040; 87077; 87086; 93005; 93010; 93971-TC; 94010; 94760; 97161-GP; 99284-25; G0480; J0131; J1644; J7030